=== PATIENT | male | born 1950 | race Caucasian/White ===

== ENCOUNTER → 2017-11-16 18:42 | Outpatient (CLI) | payer MEDICARE, OTHER, SELFPAY ==
--- NOTE | 2017-11-16 18:45 | CT_ITS ---
STUDY: LOW DOSE CT LUNG CANCER SCREENING REASON FOR EXAM: Male, 66 years old. 30 pack-year smoker. RADIATION DOSAGE (If Supplied By Facility): CTDIvol = ( 4.02 ) mGy, DLP = ( 148.48 ) mGycm TECHNIQUE: No contrast was administered. Low dose technique was utilized (average mAS-38 and kVp 120). 1.25 mm axial source images with a slice interval of 1.25-mm were reconstructed in lung windows. 2.5 mm axial source images with a slice interval of 2.5-mm were reconstructed in lung windows. 5.0 mm axial source images with a slice interval of 5.0-mm were reconstructed in soft tissue windows. Nodule measured using lung windows on PACS and/or independent workstation with automated measurement of minimum and maximum diameter. Nodule measurement reported as average diameter rounded to the nearest whole number. Growth is defined as an increase ins size of greater than 1.5 mm. COMPARISON: Comparison is made with prior examination dated September 04, 2010. NODULES: There is a new 7.6 mm x 5.1 mm well-defined noncalcified nodule in the superior medial aspect of the right upper lobe as seen on axial image #77. Total lung nodules (excluding granulomas): 1 Emphysema: Diffuse emphysematous changes. Mild increased markings at the lung bases suggestive of linear scarring. Endobronchial lesion: None Aorta: Atherosclerotic calcification. Coronary arteries: Coronary artery calcification. CT/Low Dose CT Lung Screening IMPRESSION: Lung-RADS category 3 - Continue screening with LDCT in 6 months. IMPORTANT NOTES FOR USE: ACR Lung-RADS Version 1.0 Assessment Categories Release Date: December 24, 2013 Category: Coded 0-4 bases on nodule(s) with highest degree of suspicion. Negative screen is defined as categories 1 and 2; a positive screen is defined as categories 3 and 4. Category 3 and 4A nodules that are unchanged on interval CT should be coded as category 2, and individuals returned to screening in 12 months. Category 4X: Category 3 or 4 nodules with additional imaging findings that increase the suspicion of lung cancer, such as spiculation, GGN that doubles in size in 1 year, enlarged lymph notes, etc. Category Modifiers: S (significant finding unrelated to lung cancer) and C (prior history of treated lung cancer) may be added to the 0-4 Lung-RADS Electronically Signed: Charbel Rivera MD at 10:24 EDT Tel [phone], Service support ,
== END ==
PROVIDERS: Family Provider Internal Medicine; PCP Internal Medicine; Visit Provider Internal Medicine Pulmonary Disease
DX: Z87.891 Personal history of nicotine dependence (principal)
CPT/HCPCS: G0297

== ENCOUNTER → 2018-02-16 13:05 | Outpatient (CLI) | payer MEDICARE, OTHER, SELFPAY ==
--- NOTE | 2018-02-16 13:09 | CT_ITS ---
STUDY: CT CHEST WITHOUT CONTRAST REASON FOR EXAM: Male, 67 years old. Follow-up nodule. COPD. RADIATION DOSAGE (If Supplied By Facility): CTDIvol = ( 10.71 ) mGy, DLP = ( 404.98 ) mGycm TECHNIQUE: Transaxial imaging was performed without the administration of intravenous contrast material. Individualized dose optimization techniques were used for this CT. COMPARISON: None. FINDINGS: There is hyperinflation of the lungs consistent with chronic obstructive lung disease (COPD). There is a stable 7.5 mm nodule in the medial posterior aspect of the right upper lobe, currently best seen on axial image 76. Continued follow-up is recommended. No other nodules are seen. Stable vertical linear scarring across the medial posterior left lower lobe. No infiltrates. No effusions. There is no demonstrated pleural abnormality. Normal heart and pericardium. There are calcifications of the coronary arteries. Normal mediastinum. Normal hilar regions. Normal unenhanced pulmonary arteries. Normal aorta arch and descending thoracic aorta. There are multi-level degenerative changes of the thoracic spine. There is diffuse demineralization. There are very numerous partial compression fractures that are stable. No definite acute abnormality in the upper abdomen. Stable appearance of liver and renal cysts and nonobstructing right renal stone. CT/Chest without Contrast IMPRESSION: Stable COPD and stable 7.5 mm right upper lobe nodule. Recommend repeat follow-up in 6 months. Electronically Signed: Kali Diaz MD at 17:29 EDT , Service support ,
== END ==
PROVIDERS: Family Provider Internal Medicine; PCP Internal Medicine; Visit Provider Internal Medicine Pulmonary Disease
DX: R91.1 Solitary pulmonary nodule (principal)
CPT/HCPCS: 71250

== ENCOUNTER → 2018-03-20 09:47 | Outpatient (CLI) | payer MEDICARE, OTHER, SELFPAY ==
--- NOTE | 2018-03-20 09:54 | CDU_ITS ---
Reason For Study: Carotid stenosis Rt. Velocities/BP Lt. Velocities/BP Prox CCA 114.0/28.7 cm/sec. Prox CCA 123.0/30.6 cm/sec. Mid CCA 110.0/32.2 cm/sec. Mid CCA 95.1/25.1 cm/sec. Dist CCA 99.7/27.0 cm/sec. Dist CCA 94.3/29.1 cm/sec. Prox ICA 89.1/30.5 cm/sec. Prox ICA 80.9/31.4 cm/sec. Mid ICA 89.7/30.5 cm/sec. Mid ICA 98.2/33.0 cm/sec. Dist ICA 94.4/36.4 cm/sec. Dist ICA 92.2/34.1 cm/sec. Rt. ICA/CCA = .82. Lt. ICA/CCA = 1.0. Prox ECA 83.3/17.0 cm/sec. Prox ECA 108.0/26.7 cm/sec. Rt. Vert. 55.7/11.7 cm/sec. Lt. Vert. 62.1/18.1 cm/sec. Right Extracranial There is intimal thickening but no significant atherosclerotic plaque noted in the right common carotid artery. There is intimal thickening but no significant atherosclerotic plaque noted in the right internal carotid artery. There is intimal thickening but no significant atherosclerotic plaque noted in the right external carotid artery. Antegrade flow is noted in the right vertebral artery. Left Extracranial There is intimal thickening but no significant atherosclerotic plaque noted in the left common carotid artery. There is homogeneous, smooth atherosclerotic plaque noted in the left internal carotid artery. There is heterogeneous, irregular atherosclerotic plaque noted in the left external carotid artery. Antegrade flow is noted in the left vertebral artery. Procedure Carotid Duplex [id number]. Exam performed in department. Interpretation Summary No significant atherosclerotic plaque or stenosis noted in the right internal carotid artery. Mild (<50%) stenosis left extracranial internal carotid. Flow within the vertebral arteries is antegrade bilaterally. Ordering Physician: Jessica Simental Referring Physician: Jessica Simental V Performed By: Bethany Brar RVT
== END ==
PROVIDERS: Family Provider Internal Medicine; PCP Internal Medicine; Visit Provider Internal Medicine
DX: I65.23 Occlusion and stenosis of bilateral carotid arteries (principal)
CPT/HCPCS: 93880

== ENCOUNTER → 2018-03-21 12:07 | Outpatient (CLI) | payer MEDICARE, OTHER, SELFPAY ==
--- NOTE | 2018-03-21 12:11 | RAD_ITS ---
STUDY: X-RAY - LUMBAR SPINE REASON FOR EXAM: Male, 67 years old. Low back pain. TECHNIQUE: 5 view(s) of the lumbar spine were obtained. COMPARISON: Low-dose screening CT chest/thorax November 16, 2017. FINDINGS: Normal lumbar lordosis. There is no substantial scoliosis. There is a normal alignment of the vertebrae. There is mild multilevel endplate spondylosis of the lumbar vertebrae. There is multi-level mild degenerative disc disease with multi-level disc space narrowing. There is no demonstrated fracture of the lumbar spine. There is a moderate compression fracture deformity of the T8 vertebra. There is atherosclerotic calcification of the abdominal aorta. RAD/L/S Spine Min 4 Views IMPRESSION: 1. Degenerative changes of the spine, as detailed above. 2. Compression fracture deformity of the T8 vertebra, unchanged from October 2017. Fracture deformities of the T5 and T7 vertebra are also evident on CT at that time. Electronically Signed: Atul Lazcano MD at 12:29 EDT , Service support ,
== END ==
PROVIDERS: Family Provider Internal Medicine; PCP Internal Medicine; Visit Provider Internal Medicine
DX: M54.5 Low back pain (principal)
CPT/HCPCS: 72110

== ENCOUNTER 2018-05-23 12:00 | Outpatient (RCR) | payer MEDICARE, OTHER, SELFPAY ==
--- NOTE | 2018-03-28 12:47 | HP.PTEVAL_ITS ---
Patient's Visit Information CHELI NEUMANN is a 67 year old M referred to Physical Therapy by Jessica Simental DO with a diagnosis of LBP WITH RADICULOPATHY. Date of Evaluation: 03/28/18 Physical Therapist: Rose Colunga - Visit Plan Frequency: 2-3x /Week Duration: 4-6 Weeks Plan: LUMBAR US, STM, POSTURE CORRECTION/STRENGTHENING, INSTRUCTION IN APPROPRIATE BODY MECHANICS AND ACTIVITY MODIFICATIONS. DLS STARTING WITH A NEUTRAL SPINE PROGRESSING ROM TOLERATED. MARY LE ROM, STRETCHING AND STRENGTHENING. HEP INSTRUCTION. CONSIDER AND DISCUSS AQUATIC THERAPY WITH PATIENT. - Subjective Subjective: Work/Leisure: RETIRED. [employer]. Disability: NO. Present symptoms : LEFT LOW BACK, BUTTOCK, HIP, THIGHT AND LEG PAIN. LEFT THIGH GETS TIGHT AT TIMES. NO NUMBNESS OR TINGLING. Present since: MARCH 07 2018 WAS WHEN HE FIRST NOTICED IT. Pain Scale: WORST: 7/10, LEAST 1/10. Currently: 10. Commenced as a result of: NO APPARENT REASON BUT DROVE TO [place] THE FOR A GOLF CLASS. THE WEEK BEFORE ATTEMPED TO PUSH A GARAGE DOOR UP BECAUSE A SPRING BROKE. Symptoms at onset: LEFT HIP. Worse: WALKING, GETTING IN AND OUT OF BED, GETTING IN AND OUT OF 'S CAR, MOWING, STEPS, LIFTING - PICKING UP DOG. Better: IBUPROFEN, SITTING. Disturbed sleep: YES. Previous history/Previous treatment: HISTORY OF RIGHT LOW BACK PAIN MAY 2017 - TREATED WITH 3 CHIRO VISIT - 100% RECOVERED. 10 YEARS AGO BACK EPISODE - SELF LIMITING. ONE CHIRO VISIT THIS EPISODE WHICH MIGHT HAVE HELPED A LITTLE BIT. NO PRIOR BACK PT. Coughing/sneezing/straining: NEGATIVE. Gait: IT FEELS LIKE LEFT HIP TIGHTENS UP WHEN STEPPING WITH LEFT LEG AND LEFT STRIDE SHORTER. DISTANCE LIMITED. NO AD'S. Difficulty initiating urinatin: NO. Accidents: NO. Unexplained weight loss: NO. Imaging: LUMBAR X-RAY - SHOWS ARTHRITIS AND A LITTLE BIT OF DISC AND VERTEBRAE ISSUES - OLD STRESS FX'S. EMR SHOWS: MPRESSION: 1. Degenerative changes of the spine, as detailed above. 2. Compression fracture deformity of the T8 vertebra, unchanged from 2017. Fracture deformities of the T5 and T7 vertebra are also evident on. CT at that time. PMH: SEIZURE DISORDER. OSTEOPOROSIS. COPD. OTHER: PATIENT REPORTS DR. FAST TOLD HIM NOT TO GOLF. HE REPORTS HE HAS NOT BEEN DRIVING BUT HE HAS BEEN CHIPPING AND PUTTING. - Objective Sitting/Standing Posture: POOR. Lordosis: REDUCED. Lateral shift: NO. Relevant shift: N/A. Other Observations: INDEP GAIT INTO PT WITH INCREASED TRUNK FLEXION, NO AD'S AND FAIR CADANCE. MILD LIMP CASS LLE WITH DECREASED MARY STRIDE LENGTH. INDEP TRANSFERS. Motor deficit: MARY LE'S 5/5 WITH MMT'ING. Sensory deficit: MARY LE LIGHT TOUCH SNESATION APPEARS TO BE INTACT AND SYMMETRICAL. ROM deficit: TIGHT MARY HIP FLEXORS, HAMSTRIGHS AND GASTROC SOLEUS COMPLEX'S. Dural Signs: NEGATIVE MARY LE'S. Lumbar mvmt loss: flex - MIN + LEFT LB/HIP. ext - BANDAR. R SG - BANDAR + LEFT LB/HIP. L SG - MOD. Core strength: POOR - Goals Goal 1:: DECREASE C/O L LB AND LE SX'S. Goal Time Frame: 4-6 Weeks Goal 2:: IMPROVE WALKING, LIFTING, SOCIAL LIFE, TRAVEL, HOMEMAKING AND RECREATIONAL (ESPECIALLY GOLF) FUNCTION Goal Time Frame: 4-6 Weeks Goal 3:: INSTRUCT IN PROPHYLAXIS Goal Time Frame: 4-6 Weeks - Rehabilitation Potential Rehabilitation Potential: Fair - Anticipated Interventions Patient/Client Instruction: Educate patient on: Condition, Plan of Care, Risk Factors, Benefits of Fitness Program For the Purpose of:: To improve self management Therapeutic Exercise to Include: Strength training, Body mechanics, Postural training, Flexibilty training, In an aquatic setting, Dynamic Lumbar Stabilization For the Purpose of:: To decrease pain, To increase ROM, To improve muscle performance and motor function, To increase tolerance to activity/condition/ position, To improve ability of physical actions for home/community/work/leisure , To improve gait and locomotor functions Manual Therapy Techniques to Include: Soft tissue mobilization For the Purpose of:: To decrease pain, To improve nutrient delivery to tissue Cryotherapy (ice pack, ice massage): Yes Thermo therapy (hot pack): Yes Ultrasound (thermal/non thermal): Yes For the Purpose of:: To decrease pain, To decrease swelling/inflammation, To increase ROM Thank you for the opportunity to evaluate your patient. For Medicare and Medicare HMO plans, please review the plan of care and approve it. It will need to be FAXED BACK to us at [phone] for Medicare purposes. Please let me know if there are questions or concerns regarding this plan of care. Physician Signature: Date:
--- NOTE | 2018-04-18 14:23 | HP.PTREVAL ---
Jessica Limon, DO, It has been my pleasure to treat CHELI NEUMANN over the last 10 visits for LBP WITH RADICULOPATHY. Please see the progress note below for an update on the physical therapy plan of care! Subjective: PATIENT REPORTS WALKING IS GOING BETTER - I DON'T HAVE THE TIGHNESS WHEN I WALK. I DON'T HAVE THE PAIN GETTING IN AND OUT OF BED. PATIENT REPORTS HE NOTICES THE PAIN WHEN HE STANDS ON ONE LEG AND TRIES TO PUSH SOMETHING WITH THE OTHER LEG. LIFTED SOMETHING WEIGHING ABOUT 50 TO 60 LBS YESTERDAY AND IT INCREASED HIS PAIN. THE INCREASED PAIN IS IMPROVING NOW. HASN'T HAD ANY PAIN WHEN TRYING TO HIT SOME GOLF BALLS BUT HAS MODIFIED HIS SWING. EVEN WHEN HE TWISTS SOME IT DOESN'T HURT. HASN'T TAKEN ANY ADVIL FOR 5 DAYS. HASN'T REALLY HAD MORE THAN ABOUT 1/10 PAIN UNTIL LIFTED SOMETHING YESTERDAY THEN UP TO 2/10 PAIN THAT LINGERED. STARTED DOING A LITTLE YARD WORK AND THAT WENT FINE. TRYING TO EASE BACK INTO ACTIVITY. NO PHYSICIAN FOLLOW UP AT THIS TIME - WILL RETURN TO DR. LIMON NEEDED. 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 STILL FEELING A LITTLE BIT OF TIGHTNESS ON LEFT LOW BACK WITH WALKING. Objective/Function: PATIENT IS IMPROVING WITH INCREASED PAINFREE LUMBAR ROM, IMPROVED FUNCTION AND PROGRESSION TOWARD INDEP EX PROGRAM. Sitting/Standing Posture: POOR - PATIENT STILL REQUIRES CUEING FOR CORRECTION. Lordosis: REDUCED. Lateral shift: NO. Relevant shift: N/A. Other Observations: INDEP GAIT INTO PT WITH MILD INCREASED TRUNK FLEXION, NO AD'S AND FAIR CADANCE. NO LONGER LIMPING ON LLE AND INCREASED MARY STRIDE LENGTH. INDEP TRANSFERS. Motor deficit: MARY LE'S 5/5 WITH MMT'ING. Sensory deficit: MARY LE LIGHT TOUCH SNESATION APPEARS TO BE INTACT AND SYMMETRICAL. ROM deficit: TIGHT MARY HIP FLEXORS, HAMSTRIGHS AND GASTROC SOLEUS COMPLEX'S. Dural Signs: NEGATIVE MARY LE'S. Lumbar mvmt loss: flex - NIL. ext - BANDAR. R SG - MOD. L SG - MOD. PATIENT C/O MILD INCREASED LEFT BACK PAIN WITH FLEXION AND RIGHT SG TESTING. Core strength: POOR. PATIENT COMMUNICATED A GOOD UNDERSTANDING OF ALL INSTRUCTIONS AFTER GIVEN. Plan Plan: PATIENT IS APPROPRIATE FOR CONTINUED PT DECREASING TO 2 TIMES A WEEK HE BEGINS INDEP EX WITH MEMBERSHIP AT FACILITY OF HIS CHOICE WITH THE FOLLOWING POC: US NEEDED. DLS THER EX PROGRESSION. MARY LE ROM, STRETCHING AND STRENGTHEING. FURTHER INSTRUCTION IN PROPER POSTURE CONTROL AND BODY MECHANICS NEEDED. PATIENT IS AGREEABLE TO THIS POC. Goals Goal 1:: DECREASE C/O L LB AND LE SX'S. Goal Time Frame: 4-6 Weeks Goal Progress: Progressing Goal 2:: IMPROVE WALKING, LIFTING, SOCIAL LIFE, TRAVEL, HOMEMAKING AND RECREATIONAL (ESPECIALLY GOLF) FUNCTION Goal Time Frame: 4-6 Weeks Goal Progress: Progressing Goal 3:: INSTRUCT IN PROPHYLAXIS Goal Time Frame: 4-6 Weeks Goal Progress: Progressing Anticipated Interventions Patient/Client Instruction: Educate patient on: Condition, Plan of Care, Risk Factors, Benefits of Fitness Program For the Purpose of:: To improve self management Therapeutic Exercise to Include: Strength training, Body mechanics, Postural training, Flexibilty training, In an aquatic setting, Dynamic Lumbar Stabilization For the Purpose of:: To decrease pain, To increase ROM, To improve muscle performance and motor function, To increase tolerance to activity/condition/position, To improve ability of physical actions for home/community/work/leisure, To improve gait and locomotor functions Manual Therapy Techniques to Include: Soft tissue mobilization For the Purpose of:: To decrease pain, To improve nutrient delivery to tissue Cryotherapy (ice pack, ice massage): Yes Thermo therapy (hot pack): Yes Ultrasound (thermal/non thermal): Yes For the Purpose of:: To decrease pain, To decrease swelling/inflammation, To increase ROM Please do not hesitate to contact me at [phone] by phone or if you have questions or concerns regarding this new plan of care! Sincerely, Rose Colunga
--- NOTE | 2018-05-23 12:55 | HP.PTDCSUM ---
HP - PT D/C Summary It has been my pleasure to treat CHELI NEUMANN under orders from Jessica Simental DO, for the diagnosis of LBP WITH RADICULOPATHY for a total of 16 visit(s). Discharge Date: 05/23/18 Please see the following information for a summary of their discharge status. - Subjective Subjective: PATIENT REPORTS HE HAS BEEN ABLE TO RESUME NORMAL ACTIVITY AT THIS POINT BUT HE AVOIDS LIFTING THAT PUTS HIM IN A BAD POSITION. ABLE TO GOLF WITHOUT PAIN. DOING HEP BUT HASN'T GONE TO [facility] BUT PLANS TO WHEN GOLFING SEASON IS OVER. PATIENT STATES HE DOESN'T THINK HE HAS TAKEN ANY ADVIL FOR ABOUT A MONTH. DRIVING TO [facility] [employer] / [facility] FOR GOLF OUTING FOR A WEEK 36 HOLES A DAY May. - Pain LEFT LOW BACK Pain Intensity (Out of 10): 0 - Overall Improvement % Improvement: 95 - Objective Objective/Function: ALL GOALS MET. UPON EXAM TODAY, PATIENT HAS FAIR POSTURE AND REQUIRES LESS CUEING FOR PROPER POSTURE CONTROL. HE HAS DECREASED LUMBAR EXTENSION ROM AND THIS LIMITS HIS POSTURE CORRECTION TO SOME DEGREE. HE DEMONSTRATES INDEP GAIT AND TRANSFERS WITH NO GROSS DEVIATIONS NOTED. Motor deficit: MARY LE'S 5/5 WITH MMT'ING BUT POSTERIOR HIP WEAKNESS DEMO'D WITH DIFFICULTY TRANSFERING SIT TO STAND AND REVERSE WITHOUT LERCHING FORWARD IN TRUNK. Lumbar mvmt loss: flex - NIL. ext - BANDAR. R SG - MOD. L SG - MOD. PATIENT DID NOT HAVE C/O PAIN WITH LUMBAR ROM TESTING TODAY. Core strength: FAIR. PATIENT COMMUNICATED A GOOD UNDERSTANDING OF ALL INSTRUCTIONS AFTER GIVEN TODAY. - Goals Goal 1:: DECREASE C/O L LB AND LE SX'S. Goal Progress: Progressing Goal 2:: IMPROVE WALKING, LIFTING, SOCIAL LIFE, TRAVEL, HOMEMAKING AND RECREATIONAL (ESPECIALLY GOLF) FUNCTION Goal Progress: Progressing Goal 3:: INSTRUCT IN PROPHYLAXIS Goal Progress: Progressing - Plan Plan: D/C TO HEP. PATIENT IS AGREEABLE. - D/C Information If there are questions or concerns regarding this patient's physical therapy, please feel free to call me at [phone]. Thank you for the referral of this patient. Sincerely, Rose Colunga
== END 2018-05-23 15:17 | disposition home or self-care (01) ==
LOC: PT 12:00
PROVIDERS: Family Provider Internal Medicine; PCP Internal Medicine; Visit Provider Internal Medicine
DX: M54.16 Radiculopathy, lumbar region (principal)
CPT/HCPCS: 97035; 97110; 97162; 97164; 97530

== ENCOUNTER → 2018-07-05 13:54 | Outpatient (CLI) | payer MEDICARE, OTHER, SELFPAY ==
[2018-07-05 14:01] VITALS: BP 117/76; PULSE 58; RESP 18; TEMP 35.5; BMI 26.2
[2018-07-05] MEDS: DENOSUMAB 60 MG/ML ML SQ (14:14)
== END ==
PROVIDERS: Family Provider Internal Medicine; PCP Internal Medicine; Visit Provider Internal Medicine
DX: M81.0 Age-related osteoporosis without current pathological fracture (principal)
CPT/HCPCS: 96372; J0897

== ENCOUNTER → 2018-08-08 09:28 | Outpatient (CLI) | payer MEDICARE, OTHER, SELFPAY ==
--- NOTE | 2018-08-08 09:41 | MRI_ITS ---
STUDY: MRI RIGHT MIDFOOT REASON FOR EXAM: Painful soft tissue mass, no specific injury. TECHNIQUE: Standardized fat and water weighted pulse sequences were obtained in all 3 orthogonal planes. COMPARISON: MRI images 12/24/2011. FINDINGS: Normal talonavicular articulation. Normal calcaneocuboid articulation. Normal navicular-cuneiform articulations. Normal intercuneiform articulations. Normal first tarsometatarsal articulation. Normal Lisfranc ligament. Normal second and third tarsometatarsal articulations. Normal cuboid fourth and cuboid fifth tarsometatarsal articulation. Normal first through fifth metatarsi. Normal tibialis anterior tendon. Normal extensor hallucis longus tendon. Normal extensor digitorum longus tendons. Normal peroneus longus tendon and distal insertion. Normal peroneus brevis tendon and distal insertion. Normal intrinsic muscles of the mid and forefoot region. Normal extensor digitorum brevis muscle. 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 Electronically Signed: Demarco Ellsworth MD at 11:56 EST Tel , Service support ,
--- OUTSIDE RECORDS SUMMARY | 2018-09-24 08:42 | XMS RPT_ITS | Continuity of Care Document ---
:1950 Author Organization [facility] Address [address] [facility] [address] [place] [address] Phone Care Team Providers Name Role Phone Jessica Limon DO Unavailable Dr. Landon Werner Unavailable [facility], [facility] Unavailable Dr. Jeremiah Banegas Unavailable Anneliese Stover Unavailable Unavailable Rosario Dickson Unavailable Unavailable Unavailable Unavailable Problems Name Dates Details Acute upper respiratory infection (J06.9, 465.9) Status: Active Allergic reaction (T78.40XA, 995.3) Comments: try cortisone creme Status: Active Anemia (D64.9, 285.9) Status: Active Aphthous ulcer (K12.0, 528.2) Status: Active Appendectomy Status: Active Bilateral carotid artery stenosis (I65.23, 433.10) Status: Active BMI 26.0-26.9,adult (Z68.26, V85.22) Status: Active BMI 26.0-26.9,adult (Z68.26, V85.22) Status: Active BMI 26.0-26.9,adult (Z68.26, V85.22) Status: Active BMI 28.0-28.9,adult (Z68.28, V85.24) Status: Active Bradycardia (R00.1, 427.89) Comments: improved -sx better Status: Active Cardiac dysrhythmia (I49.9, 427.9) Status: Active Chronic obstructive pulmonary disease (J44.9, 496) Status: Active Current smoker (F17.200, 305.1) Comments: encourage cessation Status: Active Depressed mood (F32.9, 311) Comments: he will consider counseling he doesnt want meds with risk of seizures Status: Active Dizziness (R42, 780.4) Status: Active Dizziness (R42, 780.4) Status: Active Ear pain, left (H92.02, 388.70) Status: Active Elevated hemoglobin A1c (R73.09, 790.29) Status: Active Elevated high sensitivity C-reactive protein (R79.82, 790.95) Status: Active Encounter for hepatitis C virus screening test for high risk patient (Z11.59, V73.89) Status: Active Encounter for immunization (Z23, V03.89) Status: Active Encounter for screening for malignant neoplasm of prostate (Renamed from Screening for prostate cancer) (Z12.5, V76.44) Status: Active Encounter for screening for malignant neoplasm of prostate (Renamed from Screening for prostate cancer) (Z12.5, V76.44) Status: Active Encounter for screening for malignant neoplasm of prostate (Renamed from Screening for prostate cancer) (Z12.5, V76.44) Status: Active Encounter for tobacco use cessation counseling (Z71.6, V65.42) 26-Jan-2012 Comments: down to 1 cig a day- encourge cessation Status: Active Erectile dysfunction (N52.9, 607.84) Status: Active Former smoker (Z87.891, V15.82) Status: Active Former smoker (Z87.891, V15.82) Status: Active Former smoker (Z87.891, V15.82) Status: Active Generalized convulsive seizure (R56.9, 780.39) Status: Active Hearing loss, bilateral (H91.93, 389.9) Comments: he not ready for eval yet -monitor Status: Active Hyperkalemia (E87.5, 276.7) Status: Active Hyperlipidemia (E78.5, 272.4) Status: Active Hypoglycemia (E16.2, 251.2) Comments: chronic stable-continue present regimen Status: Active hypoxia Status: Active 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, 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 Low back pain potentially associated with radiculopathy (M54.5, 724.2) Status: Active Lung nodule (R91.1, 793.11) Comments: jimmy is following pet scan neg Status: Active [facility] WELLNESS EXAM Status: Active [facility] wellness exam Status: Active [facility] Wellness Physical Status: Active Medicare annual wellness visit, initial (Z00.00, V70.0) Status: Active Memory loss (R41.3, 780.93) Comments: monitor- and make sure exercise and use brain Status: Active Need for prophylactic vaccination and inoculation against influenza (Renamed from Need for immunization against influenza) (Z23, V04.81) Status: Active Need for prophylactic vaccination and inoculation against influenza (Renamed from Need for immunization against influenza) (Z23, V04.81) Status: Active Need for prophylactic vaccination and inoculation against influenza (Renamed from Need for immunization against influenza) (Z23, V04.81) Status: Active Need for prophylactic vaccination and inoculation against influenza (Renamed from Need for immunization against influenza) (Z23, V04.81) Status: Active Obstructive sleep apnea, adult (G47.33, 327.23) Comments: following with jimmy Status: Active Osteoporosis (M81.0, 733.00) Comments: he getting some jaw detioration so he not going to do prolia- maybe forteo or like product will check Status: Active PERIPHERAL VASCULAR DISEASE (Renamed from Peripheral blood vessel disorder) (I73.9, 443.9) Status: Active Petechiae (R23.3, 782.7) Comments: lower extremities which I believed are sun related and improving Status: Active Peyronie's 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) (N48.6, 607.85) Status: Active Pneumococcal vaccination given (Z23, V06.6) Status: Active Poisoning by phenytoin, accidental or unintentional, subsequent encounter (T42.0X1D, V58.89) Comments: improving Status: Active Prediabetes (R73.03, 790.29) Comments: better- keep working on diet and exercise Status: Active Rash (R21, 782.1) Comments: improved Status: Active Screening for prostate cancer (Z12.5, V76.44) Status: Active Sebaceous cyst of ear (L72.3, 706.2) Status: Active Seizure disorder Comments: chronic stable-continue present regimen Status: Active SOB (shortness of breath) on exertion (R06.02, 786.05) Status: Active soft tissue tumor right foot Status: Active Testicular hypofunction (E29.1, 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) Status: Active Thyroid nodule (E04.1, 241.0) Status: Active Tonsillectomy Status: Active Unspecified Diagnosis Status: Active Upper Respiratory Infection (Renamed from Infection of the upper respiratory tract) (J06.9, 465.9) Status: Active Vitamin D deficiency, unspecified (E55.9, 268.9) Status: Active Medications Name Dates Details CALTRATE 600+D PLUS, [id number]-[id number] (Oral Tablet) Active 1 tab bid (600-400 MG-UNIT) Cialis 5 MG Oral Tablet 1 (one) Tablet Tablet qd prn for 0 days Quantity: 30 {Tablet} Refills: 0 Ordered:21-Sep-2017 Marcelle Bar Start : 20-Jun-2017 Active Dilantin 100 MG Oral Capsule 3pills Capsule qd for 90 days Quantity: 270 {QS} Refills: 3 Ordered:06-Aug-2016 Jessica Limon DO, DO, Debra A Start : 06-Aug-2016 Active Dispense as Written Comments:VANESSA Hydrocortisone Valerate 0.2 % External Cream 1 (one) Application Application apply creme qd for 0 days Quantity: 30 {Gram} Refills: 3 Ordered:16-Nov-2017 Anneliese Stover Start : 16-Nov-2017 Active ProAir HFA 108 (90 Base) MCG/ACT Inhalation Aerosol Solution uad (108 (90 Base) MCG/ACT) Active Prolia 60 MG/ML Subcutaneous Solution 1 (one) Milliliter Milliliter once every 6 months for 0 days Quantity: 1 {Milliliter} Refills: 1 Ordered:30-Jun-2018 Jessica Limon DO, DO, Debra A Start : 30-Jun-2018 Active Comments:This was approved by his insurance Simvastatin 10 MG Oral Tablet 1 (one) Tablet Tablet qd for 0 days Quantity: 90 {Tablet} Refills: 3 Ordered:20-Jun-2017 Marcelle Bar Start : 20-Jun-2017 Active Simvastatin 10 MG Oral Tablet 1 (one) Tablet Tablet qd for 0 days Quantity: 90 {Tablet} Refills: 0 Ordered:20-Jun-2017 Marcelle Bar Start : 20-Jun-2017 Active Spiriva Respimat 2.5 MCG/ACT Inhalation Aerosol Solution uad (2.5 MCG/ACT) Active Anoro Ellipta 62.5-25 MCG/INH Inhalation Aerosol Powder Breath Activated 1 (one) Aero Pow Br Act qd for 0 days Quantity: 3 {Inhaler} Refills: 0 Ordered:04-Apr-2018 Anneliese Stover Start : 01-Apr-2017 End : 04-Apr-2018 Inactive BIAXIN XL PAC, 500MG (Oral Tablet Extended Release 24 Hour) 2 (two) Tablet ER 24HR daily for 10 days Quantity: 20 {Tablet} Refills: 0 Ordered:08-Oct-2013 Lester Guerrier CNP Start : 08-Oct-2013 End : 18-Oct-2013 Inactive Breo Ellipta 100-25 MCG/INH Inhalation Aerosol Powder Breath Activated 1 (one) Puff 1 PUFF A DAY for 0 days Quantity: 30 {Inhalation} Refills: 6 Ordered:28-Jun-2018 Anneliese Stover Start : 04-Apr-2018 End : 28-Jun-2018 Inactive CEFADROXIL, 500MG (Oral Capsule) 1 (one) Capsule bid for 7 days Quantity: 14 {Capsule} Refills: 0 Ordered:30-May-2014 Lester Guerrier CNP Start : 30-May-2014 End : 06-Jun-2014 Inactive Clarithromycin 500 MG Oral Tablet 1 (one) Tablet bid for 0 days Quantity: 20 {Tablet} Refills: 0 Ordered:20-Jun-2017 Fast DO, Jessica AFast DO, Jessica A Start : 15-Jun-2017 End : 20-Jun-2017 Inactive FAMCICLOVIR, 500MG (Oral Tablet) 2 (two) Tablet bid for 1 days Quantity: 4 {QS} Refills: 0 Ordered:11-Apr-2015 Lester Guerrier CNP Start : 11-Apr-2015 End : 12-Apr-2015 Inactive PHENobarbital 16.2 MG Oral Tablet 1 (one) Tablet qid for 60 days Quantity: 240 {Tablet} Refills: 0 Ordered:10-Oct-2017 Fast DO, Jessica AFast DO, Jessica A Start : 10-Oct-2017 End : 09-Dec-2017 Inactive Dispense as Written Comments:VANESSA PHENYTOIN SODIUM EXTENDED, 100MG (Oral Capsule) tad Capsule(s)/Caplet(s) 3 caps alt 4 caps qod for 90 days Refills: 0 Ordered:13-Jul-2011 Rosario Dickson Start : 12-Feb-2011 End : 13-May-2011 Inactive VITAMIN D, 2000UNIT (Oral Capsule) 1 Capsule qd for 0 days Quantity: 60 {Capsule} Refills: 0 Ordered:26-Jan-2012 Rosario Dickson Start : 28-Jul-2010 End : 26-Jan-2012 Inactive Aspirin Adult Low Strength 81 MG Oral Tablet Chewable 1 (one) Tablet Chewable Tablet Chewable qd for 0 days Quantity: 30 {Tablet} Refills: 0 Ordered:15-Mar-2017 Rosario Dickson Start : 07-Oct-2014 End : 15-Mar-2017 Discontinued Atelvia 35 MG Oral Tablet Delayed Release [address] Tablet DR q week for 90 days Quantity: 12 {Tablet} Refills: 2 Ordered:07-Apr-2016 Rosario Dickson Start : 07-Oct-2014 End : 07-Apr-2016 Discontinued Comments:VANESSA patient did not tolerate fosamax or the generic form of Doxycycline Hyclate 100 MG Oral Tablet 1 (one) Tablet bid for 0 days Quantity: 20 {Tablet} Refills: 0 Ordered:15-Jun-2017 Rosario Dickson Start : 01-Apr-2017 End : 15-Jun-2017 Discontinued LORAZEPAM, 0.5MG (Oral Tablet) 1 Tablet tid prn for 0 days Quantity: 60 {Tablet} Refills: 0 Ordered:30-May-2014 Reny Baker LPN Start : 26-Jan-2012 End : 30-May-2014 Discontinued Comments:can sedate MUCINEX, 600MG (Oral Tablet Extended Release 12 Hour) 1 (one) Tablet ER 12HR Tablet ER 12HR bid for 0 days Quantity: 30 {Tablet} Refills: 0 Ordered:30-May-2014 Reny Baker LPN Start : 08-Oct-2013 End : 30-May-2014 Discontinued Simvastatin 10 MG Oral Tablet 1 (one) Tablet Tablet qd for 90 days Quantity: 90 {Tablet} Refills: 3 Ordered:15-Mar-2017 Rosario Dickson Start : 15-Nov-2016 End : 15-Mar-2017 Discontinued Spiriva HandiHaler 18 MCG Inhalation Capsule 1 Capsule qd for 0 days Quantity: 2 {Capsule} Refills: 3 Ordered:07-Apr-2016 Rosario Dickson Start : 03-Jul-2014 End : 07-Apr-2016 Discontinued VITAMIN D3, 1000UNIT (Oral Capsule) 1 cap qd (1000 UNIT) End : 15-Mar-2017 Discontinued Allergies and Adverse Reactions Name Dates Details No Known Allergies (Allergy) Onset: 17-Feb-2015 Status: Active No Known Drug Allergies (Allergy) Status: Active Past Medical History Name Dates Details Arthralgia of right knee (M25.561, 719.46) Status: Inactive as of 16-Nov-2017 BMI 27.0-27.9,adult (Z68.27, V85.23) Comments: 27.72 Status: Inactive as of 16-Nov-2017 BMI 27.0-27.9,adult (Z68.27, V85.23) Status: Inactive as of 21-Mar-2018 BMI 29.0-29.9,adult (Z68.29, V85.25) Status: Inactive as of 21-Dec-2017 Body aches (R52, 780.96) Status: Resolved as of 15-Mar-2014 Chronic daily headache (R51, 784.0) Status: Resolved as of 20-Jun-2017 Colon Polyp (K63.5, 211.3) Status: Inactive as of 16-Nov-2017 Congestion of nasal sinus (R09.81, 478.19) Status: Resolved as of 15-Mar-2014 Constipation (K59.00, 564.00) Status: Resolved as of 21-Jul-2011 Cough (R05, 786.2) Status: Resolved as of 15-Mar-2014 Encounter for long-term (current) use of medications (Z79.899, V58.69) Status: Resolved as of 15-Mar-2014 Joint pain in fingers of right hand (M25.541, 719.44) Comments: try ibuprofen prn Status: Inactive as of 16-Nov-2017 Need for prophylactic vaccination and inoculation against influenza (Z23, V04.81) Status: Resolved as of 15-Mar-2014 Pharyngitis (J02.9, 462) Status: Resolved as of 15-Mar-2014 Plantar fasciitis (M72.2, 728.71) Comments: discussed stretching exerxise Status: Inactive as of 16-Nov-2017 Short of breath on exertion (R06.02, 786.05) Comments: short of breath dizzy bradycardia Status: Inactive as of 16-Nov-2017 Shoulder pain (M25.519, 719.41) Comments: try ibuporfen if not better than xray - pt Status: Inactive as of 16-Nov-2017 Tick bite (W57.XXXA, 919.4) Status: Inactive as of 16-Nov-2017 Procedures Procedure Dates Details [place], [place] (09093) Date: 17-Feb-2015 Completed 17-Feb-2015 Appendectomy Completed Colonoscopy Completed 04-Nov-2015 Comments: Within Normal Limits. Small adenoma removed- repeat in 5 years Tonsillectomy Completed Date Value Details 23-May-2018 PT D/C Summary (1) Result: Comments: See Note; NOTES: [facility] [address] [place] [address] Fax [facility] SUMMARY MR#: [id number] Acct: [id number] Name: CHELI NEUMANN Rep #: [id number] : 1950 67 From: Rose Colunga PT, Cert. MDT Referring DrArias: Jessica Limon DO Status: REG RCR Insurance: MEDICAR E PART A B COMMERCIAL OTHER HP - PT D/C Summary It has been my pleasure to treat CHELI NEUMANN under orders from Jessica Limon DO, for the diagnosis of LBP WITH RADICULOPATHY for a total of 16 visit( s). Discharge Date: 05/23/18 Please see the following information for a summary of their discharge status. - Subjective Subjective: PATIENT REPORTS HE HAS BEEN ABLE TO RESUME NORMAL ACTIVITY AT THIS POINT BUT HE AVOIDS LIFTING THAT PUTS HIM IN A BAD POSITION. ABLE TO GOLF WITHOUT PAIN. DOING HEP BUT HASN'T GONE TO [facility] BUT PLANS TO WHEN GOLFING SEASON IS OVER. PATIENT STATES HE DOESN'T THINK HE H TAKEN ANY ADVIL FOR ABOUT A MONTH. DRIVING TO [employer]. FOR GOLF OUTING FOR A WEEK 36 HOLES A DAY May. - Pain LEFT LOW BACK Pain Intensity (Out of 10): 0 - Overall Improvement % Improvement: 95 - Objective Objective/Function: ALL GOALS MET. UPON EXAM TODAY, PATIENT HAS FAIR POSTURE AND REQUIRES LESS CUEING FOR PROPER POSTURE CONTROL. HE HAS DECREASED LUMBAR EXTENSION ROM AND THIS LIMITS HIS P OSTURE CORRECTION TO SOME DEGREE. HE DEMONSTRATES INDEP GAIT AND TRANSFERS WITH NO GROSS DEVIATIONS NOTED. Motor deficit: MARY LE'S 5/5 WITH MMT'ING BUT POSTERIOR HIP WEAKNESS DEMO'D WITH DIFFICULTY BARILLAS SFERING SIT TO STAND AND REVERSE WITHOUT LERCHING FORWARD IN TRUNK. Lumbar mvmt loss: flex - NIL. ext - BANDAR. R SG - MOD. L SG - MOD. PATIENT DID NOT HAVE C/O PAIN WITH LUMBAR ROM TESTING TODAY. Core str ength: FAIR. PATIENT COMMUNICATED A GOOD UNDERSTANDING OF ALL INSTRUCTIONS AFTER GIVEN TODAY. - Goals Goal 1:: DECREASE C/O L LB AND LE SX'S. Goal Progress: Progressing Goal 2:: IMPROVE WALKING, LIFTIN G, SOCIAL LIFE, TRAVEL, HOMEMAKING AND RECREATIONAL (ESPECIALLY GOLF) FUNCTION Goal Progress: Progressing Goal 3:: INSTRUCT IN PROPHYLAXIS Goal Progress: Progressing - Plan Plan: D/C TO HEP. PATIENT IS AGREEABLE. - D/C Information If there are questions or concerns regarding this patient's physical therapy, please feel free to call me at [phone]. Thank you for the referral of this patient. Rose Butterfield <Electronically signed by Rose Colunga PT, Cert. MDT> 05/23/18 1303 CC: Jessica Limon DO ANDREA Signed 18-Apr-2018 Re-Evaluation - PT (1) Result: Comments: See Note; NOTES: [facility] [address] [place] [address]. [address] [place], [place] [address] Fax REEVALUATION / MEDICARE [facility]ERTI [facility] MR#: [id number] Acct: [id number] Name: CHELI NEUMANN Rep #: [id number] : 1950 67 From: Rose Colunga PT, Cert. MDT Referring : Jessica Limon DO Status: REG RCR Ins urance: MEDICARE PART A B COMMERCIAL OTHER Jessica Limon DO, It has been my pleasure to treat CHELI NEUMANN over the last 10 visits for LBP WITH RADICULOPATHY. Please see the progress note below fo r an update on the physical therapy plan of care! Subjective: PATIENT REPORTS WALKING IS GOING BETTER - I DON'T HAVE THE TIGHNESS WHEN I WALK. I DON'T HAVE THE PAIN GETTING I N AND OUT OF BED. PATIENT REPORTS HE NOTICES THE PAIN WHEN HE STANDS ON ONE LEG AND TRIES TO PUSH SOMETHING WITH THE OTHER LEG. LIFTED SOMETHING WEIGHING ABOUT 50 TO 60 LBS YESTERDAY AND IT INC REASED HIS PAIN. THE INCREASED PAIN IS IMPROVING NOW. HASN'T HAD ANY PAIN WHEN TRYING TO HIT SOME GOLF BALLS BUT HAS MODIFIED HIS SWING. EVEN WHEN HE TWISTS SOME IT DOESN'T HURT. HASN'T TAKEN ANY ADVIL FOR 5 DAYS. HASN'T REALLY HAD MORE THAN ABOUT 1/10 PAIN UNTIL LIFTED SOMETHING YESTERDAY THEN UP TO 2/10 PAIN THAT LINGERED. STARTED DOING A LITTLE YARD WORK AND THAT WENT FINE. TRYING TO EASE BACK INTO ACTIVITY. NO PHYSICIAN FOLLOW UP AT THIS TIME - WILL RETURN TO DR. LIMON NEEDED. PATIENT REPORTS HE IS A MEMBER AT THE [email or web address]. STILL FEELING A LITTLE BIT OF TIGHTNESS ON LEFT LOW BACK WITH WALKING. Ob jective/Function: PATIENT IS IMPROVING WITH INCREASED PAINFREE LUMBAR ROM, IMPROVED FUNCTION AND PROGRESSION TOWARD INDEP EX PROGRAM. Sitting/Standing Posture: POOR - PATIENT STILL REQUIRES CUEING FOR C ORRECTION. Lordosis: REDUCED. Lateral shift: NO. Relevant shift: N/A. Other Observations: INDEP GAIT INTO PT WITH MILD INCREASED TRUNK FLEXION, NO AD'S AND FAIR CADANCE. NO LONGER LIMPING ON LLE AND INC REASED MARY STRIDE LENGTH. INDEP TRANSFERS. Motor deficit: MARY LE'S 5/5 WITH MMT'ING. Sensory deficit: MARY LE LIGHT TOUCH SNESATION APPEARS TO BE INTACT AND SYMMETRICAL. ROM deficit: TIGHT MARY HIP FLEXOR S, HAMSTRIGHS AND GASTROC SOLEUS COMPLEX'S. Dural Signs: NEGATIVE MARY LE'S. Lumbar mvmt loss: flex - NIL. ext - BANDAR. R SG - MOD. L SG - MOD. PATIENT C/O MILD INCREASED LEFT BACK PAIN WITH FLEXION AND RI GHT SG TESTING. Core strength: POOR. PATIENT COMMUNICATED A GOOD UNDERSTANDING OF ALL INSTRUCTIONS AFTER GIVEN. Plan Plan: PATIENT IS APPROPRIATE FOR CONTINUED PT DECREASING TO 2 TIMES A WEEK HE BEG INS INDEP EX WITH MEMBERSHIP AT FACILITY OF HIS CHOICE WITH THE FOLLOWING POC: US NEEDED. DLS THER EX PROGRESSION. MARY LE ROM, STRETCHING AND STRENGTHEING. FURTHER INSTRUCTION IN PROPER POSTURE CONTR OL AND BODY MECHANICS NEEDED. PATIENT IS AGREEABLE TO THIS POC. Goals Goal 1:: DECREASE C/O L LB AND LE SX'S. Goal Time Frame: 4-6 Weeks Goal Progress: Progressing Goal 2:: IMPROVE WALKING, LIFTING, SOCIAL LIFE, TRAVEL, HOMEMAKING AND RECREATIONAL (ESPECIALLY GOLF) FUNCTION Goal Time Frame: 4-6 Weeks Goal Progress: Progressing Goal 3:: INSTRUCT IN PROPHYLAXIS Goal Time Frame: 4-6 Weeks Goal Progre ss: Progressing Anticipated Interventions Patient/Client Instruction: Educate patient on: Condition, Plan of Care, Risk Factors, Benefits of Fitness Program For the Purpose of:: To improve self managem ent Therapeutic Exercise to Include: Strength training, Body mechanics, Postural training, Flexibilty training, In an aquatic setting, Dynamic Lumbar Stabilization For the Purpose of:: To decrease pain, To increase ROM, To improve muscle performance and motor function, To increase tolerance to activity/condition/position, To improve ability of physical actions for home/community/work /leisure, To improve gait and locomotor functions Manual Therapy Techniques to Include: Soft tissue mobilization For the Purpose of:: To decrease pain, To improve nutrient delivery to tissue Cryotherapy (ice pack, ice massage): Yes Thermo therapy (hot pack): Yes Ultrasound (thermal/non thermal): Yes For the Purpose of:: To decrease pain, To decrease swelling/inflammation, To increase ROM Please do not hesitate to contact me at [phone] by phone or if you have questions or concerns regarding this new plan of care! Sincerely, Rose Colunga <Electronically signed by Vicente Colunga PT, Cert. MDT> 04/18/18 1436 CC: Jessica Limon DO ANDREA Signed For Medicare only, by signing this I certify the plan of care. Physicians Signature Date 28-Mar-2018 Inital Evaluation (1) - PT Result: Comments: See Note; NOTES: [facility] [address] [place] [address] Fax [facility] SERVICES INITIAL EVALUATION MR#: [id number] Acct: [id number] Name: CHELI NEUMANN Rep #: [id number] : 1950 67 From: Rose Colunga PT, Cert. MDT Referring Dr.: Jessica Limon DO Status: REG RCR Insurance: MEDICA RE PART A B COMMERCIAL OTHER Patient's Visit Information CHELI NEUMANN is a 67 year old M referred to Physical Therapy by Jessica Limon DO with a diagnosis of LBP WITH RADICULOPATHY. Date of Evaluat ion: 03/28/18 Physical Therapist: Rose Colunga - Visit Plan Frequency: 2-3x /Week Duration: 4-6 Weeks Plan: LUMBAR US, STM, POSTURE CORRECTION/STRENGTHENING, INSTRUCTION IN APPROPRIATE BODY MECHANICS AND ACTIVITY MODIFICATIONS. DLS STARTING WITH A NEUTRAL SPINE PROGRESSING ROM TOLERATED. MARY LE ROM, STRETCHING AND STRENGTHENING. HEP INSTRUCTION. CONSIDER AND DISCUSS AQUATIC THERAPY WITH PATIENT. - Subjective Subjective: Work/Leisure: RETIRED. [employer]. Disability: NO. Present symptoms: LEFT LOW BACK, BUTTOCK, HIP, THIGHT AND LEG PAIN. LEFT THIGH GETS TIGHT AT TIMES. NO NUMBNESS OR TINGLING. Pres ent since: MARCH 07 2018 WAS WHEN HE FIRST NOTICED IT. Pain Scale: WORST: 7/10, LEAST 1/10. Currently: 10/08. Commenced as a result of: NO APPARENT REASON BUT DROVE TO [place] THE [address]TH FOR A GOLF CL ASS. THE WEEK BEFORE ATTEMPED TO PUSH A GARAGE DOOR UP BECAUSE A SPRING BROKE. Symptoms at onset: LEFT HIP. Worse: WALKING, GETTING IN AND OUT OF BED, GETTING IN AND OUT OF 'S CAR, MOWING, STEPS, LI FTING - PICKING UP DOG. Better: IBUPROFEN, SITTING. Disturbed sleep: YES. Previous history/Previous treatment: HISTORY OF RIGHT LOW BACK PAIN MAY 2017 - TREATED WITH 3 CHIRO VISIT - 100% RECOVERED. 10 Y EARS AGO BACK EPISODE - SELF LIMITING. ONE CHIRO VISIT THIS EPISODE WHICH MIGHT HAVE HELPED A LITTLE BIT. NO PRIOR BACK PT. Coughing/sneezing/straining: NEGATIVE. Gait: IT FEELS LIKE LEFT HIP TIGHTENS U P WHEN STEPPING WITH LEFT LEG AND LEFT STRIDE SHORTER. DISTANCE LIMITED. NO AD'S. Difficulty initiating urinatin: NO. Accidents: NO. Unexplained weight loss: NO. Imaging: LUMBAR X-RAY - SHOWS ARTHRITIS AND A LITTLE BIT OF DISC AND VERTEBRAE ISSUES - OLD STRESS FX'S. EMR SHOWS: MPRESSION: 1. Degenerative changes of the spine, as detailed above. 2. Compression fracture deformity of the T8 vertebra, unch anged from 2017. Fracture deformities of the T5 and T7 vertebra are also evident on. CT at that time. PMH: SEIZURE DISORDER. OSTEOPOROSIS. COPD. OTHER: PATIENT REPORTS DR. LIMON TOLD HIM NOT TO GO LF. HE REPORTS HE HAS NOT BEEN DRIVING BUT HE HAS BEEN CHIPPING AND PUTTING. - Objective Sitting/Standing Posture: POOR. Lordosis: REDUCED. Lateral shift: NO. Relevant shift: N/A. Other Observations: I NDEP GAIT INTO PT WITH INCREASED TRUNK FLEXION, NO AD'S AND FAIR CADANCE. MILD LIMP CASS LLE WITH DECREASED MARY STRIDE LENGTH. INDEP TRANSFERS. Motor deficit: MARY LE'S 5/5 WITH MMT'ING. Sensory deficit: MARY LE LIGHT TOUCH SNESATION APPEARS TO BE INTACT AND SYMMETRICAL. ROM deficit: TIGHT MARY HIP FLEXORS, HAMSTRIGHS AND GASTROC SOLEUS COMPLEX'S. Dural Signs: NEGATIVE MARY LE'S. Lumbar mvmt loss: flex - M IN + LEFT LB/HIP. ext - BANDAR. R SG - BANDAR + LEFT LB/HIP. L SG - MOD. Core strength: POOR - Goals Goal 1:: DECREASE C/O L LB AND LE SX'S. Goal Time Frame: 4-6 Weeks Goal 2:: IMPROVE WALKING, LIFTING, SOCI AL LIFE, TRAVEL, HOMEMAKING AND RECREATIONAL (ESPECIALLY GOLF) FUNCTION Goal Time Frame: 4-6 Weeks Goal 3:: INSTRUCT IN PROPHYLAXIS Goal Time Frame: 4-6 Weeks - Rehabilitation Potential Rehabilitation Potential: Fair - Anticipated Interventions Patient/Client Instruction: Educate patient on: Condition, Plan of Care, Risk Factors, Benefits of Fitness Program For the Purpose of:: To improve self manag ement Therapeutic Exercise to Include: Strength training, Body mechanics, Postural training, Flexibilty training, In an aquatic setting, Dynamic Lumbar Stabilization For the Purpose of :: To decrease pain, To increase ROM, To improve muscle performance and motor function, To increase tolerance to activity/condition/position, To improve ability of physical actions for home/community/wo rk/leisure, To improve gait and locomotor functions Manual Therapy Techniques to Include: Soft tissue mobilization For the Purpose of:: To decrease pain, To improve nutrient delivery to tissue Cryothera py (ice pack, ice massage): Yes Thermo therapy (hot pack): Yes Ultrasound (thermal/non thermal): Yes For the Purpose of:: To decrease pain, To decrease swelling/inflammation, To increase ROM Thank y aldair for the opportunity to evaluate your patient. For Medicare and Medicare HMO plans, please review the plan of care and approve it. It will need to be FAXED BACK to us at [phone] for Medicare pur poses. Please let me know if there are questions or concerns regarding this plan of care. Physician Signature: Date: <Electronic ally signed by Rose Colunga PT, Cert. T> 03/28/18 1411 CC: Jessica Limon DO ANDREA Signed For Medicare only, by signing this I certify the plan of care. Physicians Signature Date 24-Mar-2018 Carotid Duplex Ultrasound Result: Comments: See Note; NOTES: [facility] Cardiovascular Services [address] [place] [address] Carotid Duplex Ultrasound 03/20/18 0956 MR#: [id number] Acct: [id number] Name: CHELI NOWAK Rep #: [id number] : 1950 67 From: David Mo MD Attending Dr: Jessica Limon DO Status: REG CLI Ordering Dr: Jessica Limon DO Date: 03/20/18 Location: [facility] Sex: M C Admitted: Reason For Study: Carotid stenosis Rt. Velocities/BP Lt. Velocities/BP Prox CCA 114.0/28.7 cm/sec. Prox CCA 123.0/30.6 cm/sec. Mid CCA 110.0/32.2 cm/sec. Mid CCA 95.1/25.1 cm/sec. Dist CCA 99.7/27.0 cm/sec. Dist CCA 94.3/29.1 cm/sec. Prox ICA 89.1/30.5 cm/sec. Prox ICA 80.9/31.4 cm/sec. Mid ICA 89.7/30.5 cm/sec. Mid ICA 98.2/33.0 cm/sec. Dist ICA 94.4/36.4 cm/sec. Dist ICA 92.2/34.1 cm/sec. Rt. ICA/CCA = . 82. Lt. ICA/CCA = 1.0. Prox ECA 83.3/17.0 cm/sec. Prox ECA 108.0/26.7 cm/sec. Rt. Vert. 55.7/11.7 cm/sec. Lt. Vert. 62.1/18.1 cm/sec. Right Extracranial There is intimal thickening but no significant a therosclerotic plaque noted in the right common carotid artery. There is intimal thickening but no significant atherosclerotic plaque noted in the right internal carotid artery. There is intimal thicken ing but no significant atherosclerotic plaque noted in the right external carotid artery. Antegrade flow is noted in the right vertebral artery. Left Extracranial There is intimal thickening but no sig nificant atherosclerotic plaque noted in the left common carotid artery. There is homogeneous, smooth atherosclerotic plaque noted in the left internal carotid artery. There is heterogeneous, irregular atherosclerotic plaque noted in the left external carotid artery. Antegrade flow is noted in the left vertebral artery. Procedure Carotid Duplex [id number]. Exam performed in department. Interpretation Sum lester No significant atherosclerotic plaque or stenosis noted in the right internal carotid artery. Mild (<50%) stenosis left extracranial internal carotid. Flow within the vertebral arteries is antegrade bilaterally. Ordering Physician: Jessica Limon Referring Physician: Jessica Limon ed By: Bethany Brar RVT 03/24/18728 Date David Mo MD CC: Jessica Limon DO Date Dictated: 03/20/1856 Date Transcribed: 03/24/18728 Row Boss: Signed 21-Mar-2018 L/S Spine Min 4 Views Result: Comments: See Note; NOTES: [facility] Imaging Services [address] [place] [address] L/S Spine Min 4 Views MR#: [id number] Acct: [id number] Name: THIENCADE Rep #: [id number] : 1950 67 From: Phil Lazcano MD PCP: Jessica Limon DO Status: REG CLI Study: L/S Spine Min 4 Views Date of Exam: 03/21/18 Exam# [id number] Ordering Dr: Jessica Limon DO STUDY: X-RAY - LUMBA R SPINE REASON FOR EXAM: Male, 67 years old. Low back pain. TECHNIQUE: 5 view(s) of the lumbar spine were obtained. COMPARISON: Low-dose screening CT chest/thorax November 16, 2017. FINDINGS: Normal lumbar lordosis. There is no substantial scoliosis. There is a normal alignment of the vertebrae. There is mild multilevel endplate spondylosis of the lumbar vertebrae . There is multi-level mild degenerative disc disease with multi-level disc space narrowing. There is no demonstrated fracture of the lumbar spine. There is a moderate compression fracture deformity of the T8 vertebra. There is atherosclerotic calcification of the abdominal aorta. RAD/L/S Spine Min 4 Views IMPRESSION: 1. Degenerative changes of the spine, as detailed above. 2. Compression fracture deformity of the T8 vertebra, unchanged from October 2017. Fracture deformities of the T5 and T7 vertebra are also evident on CT at that time. Elect ronically Signed: Atul Lazcano MD at 12:29 EDT Tel , Service support , CC: Jessica Limon DO Row Boss: Signed 16-Feb-2018 Chest without Contrast Result: Comments: See Note; NOTES: [facility] Imaging Services [address] [place] [address] Chest without Contrast MR#: [id number] Acct: [id number] Name: CHELI NEUMANN A Rep #: [id number] : 1950 M 67 From: Kali Diaz MD PCP: Jessica Limon DO Status: REG CLI Study: Chest without Contrast Date of Exam: 02/16/18 Exam# [id number] Ordering Dr: Carlos Bowers MD STUDY: CT CHEST WITHOUT CONTRAST REASON FOR EXAM: Male, 67 years old. Follow-up nodule. COPD. RADIATION DOSAGE (If Supplied By Facility): CTDIvol = ( 10.71 ) mGy, DLP = ( 404.98 ) mGycm TECHNIQUE: Transaxial imaging was performed without the administration of intravenous contrast material. Individualized dose optimization techniques were used for this CT. COMPARISON: None. ___ FINDINGS: There is hyperinflation of the lungs consistent with chronic obstructive lung disease (COPD). There is a stable 7.5 mm nodule in the medial posterior aspect of the right upper lobe, curr ently best seen on axial image 76. Continued follow-up is recommended. No other nodules are seen. Stable vertical linear scarring across the medial posterior left lower lobe. No infiltrates. No effusion s. There is no demonstrated pleural abnormality. Normal heart and pericardium. There are calcifications of the coronary arteries. Normal mediastinum. Normal hilar regions. Normal unenhanced pulmonary arteries. Normal aorta arch and descending thoracic aorta. There are multi-level degenerative changes of the thoracic spine. There is diffuse demineralization. There are very numerous partial compressi on fractures that are stable. No definite acute abnormality in the upper abdomen. Stable appearance of liver and renal cysts and nonobstructing right renal stone. CT/Chest without Contrast IMPRESSION: Stable COPD and stable 7.5 mm right upper lobe nodule. Recommend repeat follow-up in 6 months. Electronically Signed: Kali Diaz MD 02/16 at 17:29 EDT , Service support , CC: Jessica Limon DO; Carlos Bowers MD Row Boss: Signed 16-Nov-[address] Lung Screening Result: Comments: See Note; NOTES: [facility] Imaging Services [address] [place] [address] Lung Screening MR#: [id number] Acct: [id number] Name: CHELI NEUMANN Rep #: [id number] : 1950 M 66 From: Charbel Cunha MD PCP: Jessica Limon DO Status: [facility] CLI Study: Low Dose CT Lung Screening Date of Exam: 11/16/17 Exam# [id number] Ordering Dr: Carlos Bowers MD STUDY: LOW DOSE CT LUNG CANCER SCREENING REASON FOR EXAM: Male, 66 years old. 30 pack-year smoker. RADIATION DOSAGE (If Supplied By Facility): CTDIvol = ( 4.02 ) mGy, DLP = ( 148.48 ) mGycm TECHNIQU E: No contrast was administered. Low dose technique was utilized (average mAS- 38 and kVp 120). 1.25 mm axial source images with a slice interval of 1.25-mm were reconstructed in lung windows. 2.5 mm axi al source images with a slice interval of 2.5-mm were reconstructed in lung windows. 5.0 mm axial source images with a slice interval of 5.0-mm were reconstructed in soft tissue windows. Nodule measure d using lung windows on PACS and/or independent workstation with automated measurement of minimum and maximum diameter. Nodule measurement reported as average diameter rounded to the nearest whole numbe r. Growth is defined as an increase ins size of greater than 1.5 mm. COMPARISON: Comparison is made with prior examination dated September 04, 2010. NODULES: There is a new 7.6 mm x 5.1 mm well-defined noncalcified nodule in the superior medial aspect of the right upper lobe as seen on axial image #77. Total lung nodules (excluding granulomas): 1 Emphysema: Diffus e emphysematous changes. Mild increased markings at the lung bases suggestive of linear scarring. Endobronchial lesion: None Aorta: Atherosclerotic calcification. Coronary arteries: Coronary artery c alcification. CT/Low Dose CT Lung Screening IMPRESSION: Lung-RADS category 3 - Continue screening with LDCT in 6 months. IMPORTANT NOTES FOR USE: ACR Lung-RADS Version 1.0 Assessm ent Categories Release Date: December 24, 2013 Category: Coded 0-4 bases on nodule(s) with highest degree of suspicion. Negative screen is defined as categories 1 and 2; a positive screen is defined as cat egories 3 and 4. Category 3 and 4A nodules that are unchanged on interval CT should be coded as category 2, and individuals returned to screening in 12 months. Category 4X: Category 3 or 4 nodules with additional imaging findings that increase the suspicion of lung cancer, such as spiculation, GGN that doubles in size in 1 year, enlarged lymph notes, etc. Category Modifiers: S (significant finding unr elated to lung cancer) and C (prior history of treated lung cancer) may be added to the 0-4 Lung-RADS Electronically Signed: Charbel Cunha MD at 10:24 EDT Tel [phone], Service suppo rt , CC: Jessica Limon DO; Carlos Bowers MD Row Boss: Signed 22-Jun-2017 Thyroid Result: Comments: See Note; NOTES: [facility] Imaging Services [address] [place] [address] Thyroid MR#: [id number] Acct: [id number] Name: CHELI NEUMANN Rep #: [id number] : [birth year] M 66 From: Kali Diaz MD PCP: Jessica Liomn DO Status: REG CLI Study: Thyroid Date of Exam: 06/22/17 Exam# [id number] Ordering Dr: Jessica Limon DO STUDY: THYROID ULTRASOUND REASON FOR EXAM: M artie, 66 years old. Nodules TECHNIQUE: Ultrasound evaluation of the thyroid was performed with real-time and static iqbal-scale imaging. COMPARISON: 05/06/2016. FINDIN GS: RIGHT LOBE: The right lobe of the thyroid gland measures 4.3 x 1.8 x 1.4 cm. There is a homogeneous echotexture. There is a 5 mm nodule in the upper pole. LEFT LOBE: The left lobe of the thyroid g land measures 4.3 x 2.1 x 1.5 cm. There is a homogeneous echotexture. There is an 8 mm solid lower pole nodule. ISTHMUS: The isthmus measures 5 mm . The regional lymph nodes are normal. US/Thyroid IMPRESSION: Stable small nodules. No dominant mass. Recommend continued annual follow-up. Electronically Signed: Kali Diaz MD a t 23:58 EDT , Service support , CC: Jessica Limon DO Row Boss: Signed 16-Mar-2017 Finger(s) Min 2 Views Result: Comments: See Note; NOTES: [facility] Imaging Services [address] [place] [address] Verdana 4d Finger(s) Min 2 Views MR#: [id number] Acct: [id number] Name: CHELI NEUMANN Re p #: [id number] : 1950 M 66 From: Chas Kulkarni MD PCP: Jessica Limon DO Status: REG CLI Study: Finger(s) Min 2 Views Date of Exam: 03/16/17 Exam# [id number] Ordering Dr: Jessica Limon DO STUDY: X- RAY - RIGHT HAND, ATTENTION THIRD FINGER REASON FOR EXAM: Male, 66 years old. Pain TECHNIQUE: 3 view(s) of the finger were obtained. COMPARISON: None. FINDINGS: N ormal metacarpal head. Normal metacarpophalangeal joint. Normal proximal phalanx. Normal middle phalanx. Normal distal phalanx. Normal proximal interphalangeal joint. Normal distal interphalangeal suyapa nt. RAD/Finger(s) Min 2 Views IMPRESSION: Normal x-ray examination of the finger. Electronically Signed: Chas Kulkarni MD at 20:47 EDT , Service support , CC: Jessica Limon DO Row Boss: Signed 16-Mar-2017 Knee 4 or More Views Result: Comments: See Note; NOTES: [facility] Imaging Services [address] [place] [address] Verdana 4d Knee 4 or More Views MR#: [id number] Acct: [id number] Name: THIENCHELICADE Rep #: [id number] : 1950 M 66 From: Chas Kulkarni MD PCP: Jessica Limon DO Status: REG CLI Study: Knee 4 or More Views Date of Exam: 03/16/17 Exam# [id number] Ordering Dr: Jessica Limon DO STUDY: X-RA Y - RIGHT KNEE REASON FOR EXAM: Male, 66 years old. Knee pain TECHNIQUE: 4 view(s) of the knee. COMPARISON: None. FINDINGS: Normal visualized distal femur. Normal visualized proximal tibia and fibula. Normal proximal tibiofibular articulation. Normal medial femorotibial compartment. Normal lateral femorotibial compartment. Normal patellofemoral articulation. T he soft tissue structures are unremarkable. RAD/Knee 4 or More Views IMPRESSION: Normal x-ray examination of the knee. Electronically Signed: Se chrissy Kulkarni MD at 20:48 EDT , Service support , CC: Jessica Limon DO Row Boss: Signed 01-Feb-2017 DXA BONE DENS W/VERT FX ASMT Result: Comments: See Note; NOTES: [facility] Imaging Services [address] [place] [address] Verdana 4d DXA BONE DENS W/VERT FX ASMT MR#: [id number] Acct: [id number] Name: IRVING NEUMANN Rep #: [id number] : 1950 [facility] From: Charbel Cunha MD PCP: Jessica Limon DO Status: REG CLI Study: DXA BONE DENS W/VERT FX ASMT Date of Exam: 02/01/17 Exam# [id number] Ordering Dr: Marcelino Limon DO STUDY: DUAL ENERGY X-RAY ABSORPTIOMETRY / DXA REASON FOR EXAM: Male, 66 years old. Loss of height. TECHNIQUE: Bone Mineral Density (BMD) measurements of lumbar spine and bilateral hips were obtained. COMPARISON: Comparison is made with prior study dated January 30, 2015. FINDINGS: Lumbar Spine (L1-L4): g/cm2 (1.056) / T-score (-1.3) / Z-score (-0.8) Findi ngs are suggestive of osteopenia with a moderate fracture risk. Approximately 60% loss of height of the T7 vertebrae and 50% loss of height of the T8 vertebrae. Left Femur Total: g/cm2 (0.684) / T-scor e (-2.9) / Z-score (-2.3) Left Femoral Neck: g/cm2 (0.758) / T-score (-2.4) / Z-score (-1.3) Right Femur Total: g/cm2 (0.638) / T-score (-3.2) / Z-score (- 2.6) Right Femoral Neck: g/cm2 (0.782) / T-scor e (-2.2) / Z-score (-1.1) The T-Scores on the most recent prior examination were: Lumbar Spine (L1-L4): There has been improvement of bone density since the previous examination. Left Femur Total: wh ich represents a worsening of 0.3%. Right Femur Total: which represents a worsening of 7.7%. HPBD/DXA BONE DENS W/VERT FX ASMT IMPRESSION: The pa tient is considered osteoporotic as outlined below according to World Lee Organization (WHO) criteria with a high fracture risk. There has been worsening of bone density since the previous examination . Reference Information: The T-score is the number of standard deviations above or below the standard which is normal for young adults at their peak bone mineral de nsity. The World Health Organization (WHO) interprets the T-scores as follows: Above -1 Normal bone density Between -1 and -2.5 Osteopenia Equal to / or below -2.5 Osteoporosis As a practical clinical guideline, osteopenia may be graded as follows: Mild -1 through -1.5 Moderate -1.6 through -2.0 Severe -2.1 through -2.4 The Z-score is the number of standard deviations above or below age-matched con trols. A Z-score of less than -1.5 would be considered abnormal. References: 1. NIH Osteoporosis and Related Bone Diseases http://www.osteo.org 2. International Society for Clinical Densitometry http:/ /www.iscd.org 3. National Osteoporosis Foundation http://www.nof.org Electronically Signed: Charbel Cunha MD at 12:41 EDT Tel [phone], Service support , Fax CC: Jessica Limon DO Row Boss: Signed 01-Dec-2016 Carotid Duplex Ultrasound Result: Comments: See Note; NOTES: [facility] Cardiovascular Services [address] [place] [address] Carotid Duplex Ultrasound 11/29/16 0940 MR#: [id number] Acct: [id number] Name: CHELI NOWAK Rep #: [id number] : 1950 66 From: René Aiken MD Attending Dr: Jessica Limon DO Status: REG CLI Ordering Dr: Jessica Limon DO Date: 11/29/16 Location: [facility] Sex: M C Admitted: [facility] n For Study: Carotid stenosi Rt. Velocities/BP Lt. Velocities/BP Prox CCA 103.0/22.3 cm/sec. Prox CCA 126.0/33.0 cm/sec. Mid CCA 105.0/28.1 cm/sec. Mid CCA 106.0/32.2 cm/sec. Dist CCA 86.2/26.4 cm/sec. Dist CCA 82.5/27.5 cm/sec. Prox ICA 75.6/25.8 cm/sec. Prox ICA 82.7/31.7 cm/sec. Mid ICA 95.0/39.3 cm/sec. Mid ICA 66.7/27.1 cm/sec. Dist ICA 81.1/29.4 cm/sec. Dist ICA 82.1/28.7 cm/sec. Rt. ICA/CCA = .90. Lt. ICA/CCA = .78. Prox ECA 96.2/15.8 cm/sec. Prox ECA 86.4/17.3 cm/sec. Rt. Vert. 42.2/13.5 cm/sec. Lt. Vert. 50.4 cm/sec. Right Extracranial There is intimal thickening but no significant athero sclerotic plaque noted in the right common carotid artery. There is intimal thickening but no significant atherosclerotic plaque noted in the right internal carotid artery. There is homogeneous, smooth atherosclerotic plaque noted in the right external carotid artery. Antegrade flow is noted in the right vertebral artery. Left Extracranial There is intimal thickening but no significant atheroscleroti c plaque noted in the left common carotid artery. There is homogeneous, smooth atherosclerotic plaque noted in the left internal carotid artery. There is heterogeneous, irregular atherosclerotic plaque noted in the left external carotid artery. Antegrade flow is noted in the left vertebral artery. Procedure Carotid Duplex [id number]. Exam performed in department. Interpretation Summary Mild (<50% ) stenosis right extracranial internal carotid. Mild (<50%) stenosis left extracranial internal carotid. Flow within the vertebral arteries is antegrade bilaterally. Ordering Physician: Jessica Limon Performed By: Bethany Brar RVT 12/01/16 1035 Date René Aiken MD CC: Jessica Limon DO Date Dictated: 11/29/16 0940 Date Transcribed: 12/01/16 1035 Row Boss: Signed 10-May-2016 Brain/Head W/WO Contrast Result: Comments: See Note; NOTES: [facility] Imaging Services [address] [place] [address] [place] [address] Verdana 4d Brain/Head W/WO Contrast MR#: [id number] Acct: [id number] Name: CHELI NEUMANN Rep #: [id number] : 1950 M 65 From: Chas Kulkarni MD PCP: Jessica Limon DO Status: REG CLI Study: Brain/Head W/WO Contrast Date of Exam: 05/10/16 Exam# [id number] Ordering Dr: Jessica Limon TUDY: CT BRAIN WITH AND WITHOUT CONTRAST REASON FOR EXAM: Male, 65 years old. DIZZINESS RADIATION DOSAGE (If Supplied By Facility): CTDIvol = ( 60.81 ) mGy, DLP = ( 2058.55 ) mGycm TECHNIQUE: Transax ial CT imaging of the brain was performed pre and post contrast administration. The examination was performed with intravenous administration of 50 ml of Isovue 370 contrast material. Individualized do se optimization techniques were used for this CT. COMPARISON: None. FINDINGS: Normal soft tissue structures. Normal calvarium. There are no enhancing lesions are Th ere are calcifications around the cavernous carotid arteries. This is consistent for atherosclerotic disease. Normal size ventricles and extra-axial spaces for the patient's age. Normal white matter tr acts of the cerebral hemispheres. Normal basal ganglia and thalami. Normal brainstem. Normal cerebellum. There is no intracranial hemorrhage. There are no findings of an acute ischemic infarction. Nor mal visualized paranasal sinuses. CT/Brain/Head W/WO Contrast IMPRESSION: Normal unenhanced and enhanced CT scan of the brain. There are calcif ications around the cavernous carotid arteries. This is consistent for atherosclerotic disease. Electronically Signed: Chas Kulkarni MD at 21:50 EDT , Service support [phone], CC: Jessica Limon DO Row Boss: Signed 06-May-2016 Thyroid Result: Comments: See Note; NOTES: [facility] Imaging Services [facility] [place] [address] Verdana 4d Thyroid MR#: [id number] Acct: [id number] Name: CHELI NEUMANN Rep #: [id number] : 1950 M 65 From: Giorgio Hernandez MD PCP: Jessica Limon DO Status: REG CLI Study: Thyroid Date of Exam: 05/06/16 Exam# [id number] Ordering Dr: Jessica Limon DO STUDY: THYROID ULTRASOUND FARRAH SON FOR EXAM: Male, 65 years old. Thyroid nodule TECHNIQUE: Ultrasound evaluation of the thyroid was performed with real-time and static iqbal-scale imaging. COMPARISON: None. FINDINGS: RIGHT LOBE: The right lobe of the thyroid gland measures 4.3 cm and 1.2 cm x 1.1 cm. There is a homogeneous echotexture. There is a tiny slightly hypoechoic nodular focus which me asures no more than 4 mm in the mid right lobe medial aspect. LEFT LOBE: The left lobe of the thyroid gland measures 4.6 cm a 1.6 cm x 2 cm. There is a homogeneous echotexture. Solitary somewhat isoech oic appearing ovoid nodule which measures 4 mm x 8 mm x 7 mm towards the lower pole. ISTHMUS: The isthmus measures 3 millimeters. No abnormal lymph nodes are demonstrated. US/Thyroid IMPRESSION: Only rather marginal enlargement of the gland at most is demonstrated, with uniform echotexture and bilateral subcentimeter sized nodular foci seen in each lobe. Periodic ultrasound surveillance for these will suffice at this time. Electronically Signed: Phil Hernandez MD at 7:32 EDT Tel , Service support [phone], F ax [phone] CC: Jessica Limon DO Row Boss: Signed 20-Apr-2016 Echocardiogram Complete Result: Comments: See Note; NOTES: [facility] Cardiovascular Services [address] [place] [address] Echo Complete 04/20/16 0829 MR#: [id number] Acct: [id number] Name: CHELI NEUMANN Rep #: [id number] : 1950 65 From: Neeraj Porter MD Attending Dr: Jessica Limon DO Status: REG CLI Ordering Dr: Jessica Limon DO Date: 04/20/16 Location: [facility] Sex: M C Admitted: Reason For Stud y: SOB Procedure This was a 2D Doppler, Color Flow transthoracic echocardiogram. The exam was of adequate technical quality. Exam performed in department. Left Ventricle Normal LV size. Left ventricul ar systolic function is normal. The estimated ejection fraction is 65 %. No regional wall motion abnormalities noted. Right Ventricle Normal RV size. Normal systolic function. Atria The left atrium is mildly enlarged. Normal right atrium. No doppler evidence for ASD. Mitral Valve There is mild mitral annular calcification. Normal mitral valve. Mild (1+) mitral valve insufficiency. Tricuspid Valve Normal tricuspid valve. Mild tricuspid valve insufficiency. Right ventricular systolic pressure estimated to be 33 mmHg. Aortic Valve Trisinus/trileaflet aortic valve. Mild focal aortic valve thickenin g. Pulmonic Valve The pulmonic valve is not well visualized. Great Vessels Normal sized aortic root. Pericardium/Pleural No pericardial effusion. MMode/2D Measurements & Calculations LVIDd: 5 .0 cm IVSd: 1.1 cm Ao root diam: 3.2 cm LVIDs: 3.2 cm LVPWd: 1.1 cm RVDd: 3.7 cm FS: 35.8 % LAV(MOD-bp): 65.4 ml LA A4 a farrah: 20.1 cm2 RA A4 area: 13.1 cm2 LAV(MOD-bp) Indexed: 30.5 ml/m2 LAV(MOD-sp2): 57.5 ml LAV(MOD-sp4): 68.4 ml Doppler Measurements & Calculations MV E max jayne: 89.3 cm/sec Lat Peak E' Jayne: 9.5 cm/sec Med Peak E' Jayne: 5.4 cm/sec MV A max jayne: 76.3 cm/sec E/E' lat: 9.4 E/E' med: 16.6 MV E/A: 1.2 Ao V2 max: 143.4 cm/sec LV V1 max: 74.2 cm/sec PA V2 max: 91.5 cm/sec Ao max P.3 mmHg LV V1 max P.2 mmHg TR max jayne: 266.5 cm/sec TR max P.4 mmHg Interpretation Summary Left ventricular systolic function is normal. The estimated ejection fraction is 65 %. The left atrium is mildly enlarged. There is mild mitral annular calci fication. Mild (1+) mitral valve insufficiency. Mild tricuspid valve insufficiency. Mild focal aortic valve thickening. Right ventricular systolic pressure estimated to be 33 mmHg. Transmitral diastolic flow velocities suggest diastolic dysfunction (pseudonormal pattern). Comment: Echolucency c/w an hepatic cyst. Consider further evaluation with additional radiologic studies such as abdominal U/S or C T scan as clinically indicated. Ordering Physician: Jessica Limon Performed By: Natalie Sarabia RD CS, RVT 04/20/167 Date Neeraj Porter MD CC: Jessica Limon DO Date Dictated: 828 Date Transcribed: 04/20/161336 Row Boss: Signed 20-Apr-2016 Nuclear Stress Test - Treadmil Result: Comments: See Note; NOTES: [facility] Imaging Services [address] [place] [address] [place] 4d Nuclear Stress Test - Treadmil MR#: [id number] Acct: [id number] Name: CHELI NEUMANN Rep #: [id number] : 1950 65 From: Neeraj Porter MD Primary Care: Jessica Limon DO Status: REG CLI Ordering Dr: Jessica Limon DO Sex: M C DATE OF SERVICE: 04/20/2016 EXERCISE TOLERANCE TEST: The patient exercised on a Nima protocol for 5 minutes 30 seconds completing stage 1 and 2 minutes and 30 seconds of stage 2, achieving a peak heart rate of 131 beats per minute (85% predicted m aximum heart rate) and a peak blood pressure of 140/80 mmHg and a peak MET capacity of approximately 7 METS. The baseline ECG demonstrated sinus bradycardia. The peak exercise ECG demonstrated no obvio us ECG changes. There was a rare PVC during exercise. There was a rare PAC and an occasional PVC during recovery. The functional capacity was considered average. The patient had no complaint of ches t discomfort during exercise or recovery. The examination was discontinued secondary to leg discomfort and dyspnea. IMPRESSION: 1. Technically adequate (percent predicted maximum heart rate greater th an 85%), exercise tolerance test. 2. Negative (adequate) ECG exercise tolerance test. 3. Rare PVC during exercise. 4. Rare PAC and occasional PVC during recovery. 5. Nuclear images pending. MYOCARDIAL PERFUSION IMAGING STUDY: TECHNIQUE: The patient was injected with 14.7 mCi of Tc99m Cardiolite and subsequently rest SPECT Cardiolite nuclear imaging was obtained in the horizontal long, vertical long and short axes views. The patient exercised on a Nima protocol for 5 minutes 30 seconds completing stage 1 and 2 minutes and 30 seconds of stage 2, achieving a peak heart rate of 131 beats per minute ( 85% predicted maximum heart rate) and a peak blood pressure of 140/80 mmHg and a peak MET capacity of 7 METS. The patient was injected with 44.3 mCi of Tc99m Cardiolite and subsequently stress SPECT Car diolite nuclear imaging was obtained in the horizontal long, vertical long and short axes views. A gated Cardiolite study at peak stress was obtained. INTERPRETATION: Rest and stress SPECT Cardiolite n uclear imaging, status post realignment, normalization, attenuation correction, demonstrates a small area of subtle decreased tracer uptake near the apical segments without significant change between re st and stress. There are similar type findings on the resting and stress polar map images. There is end systolic thickening and brightening. The gated Cardiolite study demonstrates myocardial thickening and inward wall motion. The reported LVEF was 68%. The aforementioned findings appear compatible with the effects of physiologic apical thinning with no myocardial perfusion changes considered diagnost ic for associated stress-induced myocardial ischemia or previous myocardial injury/infarction. IMPRESSION: 1. Rest and stress SPECT Cardiolite nuclear imaging demonstrates myocardial perfusion changes appearing compatible with the effects of physiologic apical thinning with no myocardial perfusion changes considered diagnostic for associated stress-induced myocardial ischemia or previous myocardial i njury/infarction. 2. The gated Cardiolite study reports an LVEF of 68%. Neeraj Porter MD T: NTS JOB: [id number] 04/21/16 1019 <Electronically signed by Neeraj Porter MD> Date Neeraj Porter MD CC: Jessica Limon DO Date Dictated: 04/20/1650 Date Transcribed: 04/20/16849 Row Boss: Signed 07-Apr-2016 ELECTROCARDIOGRAM, COMPLETE (ECG) ([id number]) Comments: severe sinus lokesh- otherwise normal sinus- normal axis no acute st t wave changes Result: [MEASUREMENTS ANALYSIS] Date of Test: 04/07/2016 11:15:52; Heart Rate: 39; FL Interval: 192; QRS: 96; QT Interval: 462; Corrected QT Interval (QTc): 426; P Wave Lovelady: 69; QRS Wave Lovelady: 66; T Wave Lovelady: 50; Blood Pressure: 114/68 [ECG DIAGNOSTIC STATEMENTS] Date of Test: 04/07/2016 11:15:52; Summary: Marked sinus Bradycardia -With rate variation cv = 10.Low voltage in limb leads. ABNORMAL [MEASUREM ENTS ANALYSIS] Date of Test: 04/07/2016 11:14:53; Heart Rate: 41; FL Interval: 188; QRS: 96; QT Interval: 458; Corrected QT Interval (QTc): 425; P Wave Lovelady: 90; QRS Wave Lovelady: 65; T Wave Lovelady: 49; Bloo d Pressure: 114/68 [ECG DIAGNOSTIC STATEMENTS] Date of Test: 04/07/2016 11:14:53; Summary: Marked sinus Bradycardia -With rate variation cv = 22.Low voltage in limb leads. ABNORMAL 12-Dec-2015 Carotid Duplex Ultrasound Result: Comments: See Note; NOTES: [facility] Cardiovascular Services [address] [place] [address] Carotid Duplex Ultrasound 12/10/15 0904 MR#: [id number] Acct: [id number] Name: CHELI NEUMANN Rep #: [id number] : 1950 65 From: René Aiken MD Attending Dr: Jessica Limon DO Status: REG CLI Ordering Dr: Jessica Limon DO Date: 12/10/15 Location: [facility] Sex: M C A dmitted: Reason For Study: carotid stenosis Rt. Velocities/BP Lt. Velocities/BP Prox CCA 149/42.4 cm/sec. Prox CCA 159/46.4 cm/sec. Mid CCA 123/36.1 cm/sec. Mid CCA 110/32.2 cm/sec. Dist CCA 105/40.1 cm/sec. Dist CCA 101/34.6 cm/sec. Prox ICA 134/37.7 cm/sec. Prox ICA 96.7/36.4 cm/sec. Mid ICA 137/53.4 cm/sec. Mid ICA 123/55.8 cm/sec. Dist ICA 138/50.9 cm/sec. Dist ICA 108/42.8 cm/sec. Rt. ICA/CCA = 1.1. Lt. ICA/CCA = 1.1. Prox ECA 94.3/22.0 cm/sec. Prox ECA 133/21.1 cm/sec. Rt. Vert. 67.4/29.3 cm/sec. Lt. Vert. 62.5/20.4 cm/sec. Right Extracranial There is heterogeneous, smooth atherosclerotic plaque noted in the right common carotid artery. There is homogeneous, smooth atherosclerotic plaque noted in the right internal carotid artery. The right internal carotid artery is very tortuous. There is homogeneous, smooth atherosclerotic plaque noted in the right external carotid artery. Antegrade flow is noted in the right vertebral artery. Left Extracranial There is ho mogeneous, smooth atherosclerotic plaque noted in the left common carotid artery. There is homogeneous, smooth atherosclerotic plaque noted in the left internal carotid artery. The left internal car otid artery is very tortuous. The atherosclerotic plaque causes acoustic shadowing. There is heterogeneous, irregular atherosclerotic plaque noted in the left external carotid artery. Antegrade flow is noted in the left vertebral artery. Procedure Carotid Duplex [id number]. The exam was diagnostic. Exam performed in department. Interpretation Summary Mild (<50%) stenosis right extracrania l internal carotid. Mild (<50%) stenosis left extracranial internal carotid. Flow within the vertebral arteries is antegrade bilaterally. There is elevated velocities throughout the entire r ight common and internal carotid arteries. Ordering Physician: Jessica Limon Performed By: Natalie Causey, RDRAFAEL, RVT 12/12/15 175 Date René Aiken MD CC: Jessica Limon DO Date Dictated: 12/10/1504 Date Transcribed: 12/12/151751 Row Boss: Signed 10-Dec-2015 Aorta Result: Comments: See Note; NOTES: [facility] Imaging Services [address] [place] [address] [place]el[place] 4d Aorta MR#: [id number] Acct: [id number] Name: CHELI NEUMANN Rep # : [id number] : 1950 M 65 From: Charbel Cunha MD PCP: Jessica Limon DO Status: REG CLI Study: Aorta Date of Exam: 12/10/15 Exam# [id number] Ordering Dr: Jessica Limon DO PROCEDURES: ULTRA SOUND AORTA REASON FOR EXAM: Male, 65 years old. Screening for abdominal aortic aneurysm. TECHNIQUE: Ultrasound evaluation of the aorta was performed with real-time and static iqbal-scale imaging. COMPARISON: None. FINDINGS: There is no elongation or tortuosity of the abdominal aorta. Aorta measures: Proximal 2.6 cm. Middle 2.0 cm. Distal 1.7 cm. Aorta measure transversely: Proximal 2.7 cm. Middle 2.0 cm. Distal 2.1 cm. Right iliac artery measures: 0.9 cm. Right iliac artery measure transversely: 0.7 cm. Left iliac artery measures: 1.1 cm. Lef t iliac artery measure transversely: 0.7 cm. There is no demonstrated aneurysm.. IMPRESSION: Normal abdominal aorta. Electronically Signed: Charbel Cristina i, MD at 10:18 EDT Tel [phone], Service support [phone], CC: Jessica Limon DO Row Boss: Signed 23-Oct-2015 Spirometry ([id number]) Result: 08-Aug-2015 ELECTROCARDIOGRAM, COMPLETE (ECG) ([id number]) Comments: ekg showed normal sinus rhythym, normal axis, no acute st/t wave changes Result: [MEASUREMENTS ANALYSIS] Date of Test: 08/08/2015 11:57:53; Heart Rate: 57; FL Interval: 192; QRS: 94; QT Interval: 428; Corrected QT Interval (QTc): 423; P Wave Lovelady: 78; QRS Wave Lovelady: 76; T Wave Lovelady: 47; Blood Pressure: 120/72 [ECG DIAGNOSTIC STATEMENTS] Date of Test: 08/08/2015 11:57:53; Summary: Sinus Bradycardia Low voltage in limb leads. ABNORMAL 30-Jan-2015 Dexa Bone Density Study (HP) Result: Comments: See Note; NOTES: [facility] Imaging Services [address] [address] Bone Density Report MR#: [id number] Acct: [id number] Name: CHELI NEUMANN Rep #: [id number] : 1950 M 64 From: Charbel Cunha MD PCP: Jessica Limon DO Status: REG CLI Study: Dexa Bone Density Study (HP) Date of Exam: 01/30/15 Exam# [id number] Ordering Dr: Jessica Limon DO STUDY: DUAL ENERGY X-RAY ABSORPTIOMETRY / DXA REASON FOR EXAM: Male, 64 years old. Steroid use. TECHNIQUE: Bone Mineral Density (BMD) measurements of lumbar spine and bilateral hips were obtaine d. COMPARISON: Comparison is made with prior examination dated September 26, 2012. FINDINGS: Lumbar Spine (L1-L4): g/cm2 (1.017) / T-score (-1.6) / Z-score (-1. 2) Findings are suggestive of osteopenia with a moderate fracture risk. Left Femur Total: g/cm2 (0.686) / T-score (-2.9) / Z-score (-2.3) Left Femoral Neck: g/cm2 (0.762) / T-score (-2.4) / Z-score (-1.3) Right Femur Total: g/cm2 (0.691) / T-score (-2.8) / Z-score (-2.3) Right Femoral Neck: g/cm2 (0.768) / T-score (-2.3) / Z-score (-1.2) The T-Scores on the most recent prior examination were: Lumbar Spine (L1-L4): There has been improvement of bone density since the previous examination. Left Femur Total: which represents a worsening of 2.4%. Right Femur Total: which represents an impr ovement of 0.3%. IMPRESSION: The patient is considered osteoporotic as outlined below according to World Lee Organization (WHO) criteria with a high fracture r isk. There has been improvement of bone density since the previous examination. Reference Information: The T-score is the number of standard deviations above or below the standard which is normal for young adults at their peak bone mineral density. The World Health Organization (WHO) interprets the T-scores as follows: Above -1 Normal bone density Betwee n -1 and -2.5 Osteopenia Equal to / or below -2.5 Osteoporosis As a practical clinical guideline, osteopenia may be graded as follows: Mild -1 through -1.5 Moderate -1.6 through -2.0 Severe -2.1 t hrough -2.4 The Z-score is the number of standard deviations above or below age-matched controls. A Z-score of less than -1.5 would be considered abnormal. References: 1. NIH Osteoporosis and Rela garcia Bone Diseases http://www.osteo.org 2. International Society for Clinical Densitometry http://www.iscd.org 3. National Osteoporosis Foundation http://www.nof.org Electronically Signed: Charbel Cunha MD at 15:54 EDT Tel [phone], Service support [phone], CC: Jessica Limon DO Row Boss: Signed 25-Sep-2014 Carotid Duplex Ultrasound Result: Comments: See Note; NOTES: [facility] Cardiovascular Services [address] [place] [address] Carotid Duplex Ultrasound 09/25/14 0850 MR#: [id number] Acct: [id number] [facility] e: CHELI NEUMANN Rep #: [id number] : 1950 63 From: René Aiken MD Attending Dr: Jessica Limon DO Status: REG CLI Ordering Dr: Jessica Limon DO Date: 09/25/14 Location: [facility] Sex: M C Admitted : Rt. Velocities/BP Lt. Velocities/BP Prox CCA 151/45 cm/sec. Prox CCA 164/38 cm/sec. Mid CCA 138/38 cm/sec. Mid CCA 115/38 cm /sec. Dist CCA 105/37 cm/sec. Dist CCA 109/42 cm/sec. Prox ICA 7 1/23 cm/sec. Prox ICA 118/48 cm/sec. Mid ICA 109/39 cm/sec. Mid ICA 105/49 cm /sec. Dist ICA 81/29 cm/sec. Dist ICA 103/48 cm/sec. Rt. ICA/CCA = .8. Lt. ICA/CCA = 1.0. Prox ECA 94/34 cm/sec. Prox ECA 114/37 cm/sec. Rt. Vert. 50/20 cm/sec. Lt. Vert. 57/19 cm/sec. Right Extracranial There is heterogeneous, smooth atherosclerotic plaque noted in the right common carotid artery. The right in ternal carotid artery is very tortuous. There is heterogeneous, smooth atherosclerotic plaque noted in the right internal carotid artery. There is heterogeneous, smooth atherosclerotic plaque noted in the right external carotid artery. Antegrade flow is noted in the right vertebral artery. Acoustic shadowing. There is heterogeneous, smooth atherosclerotic plaque noted in the right bulb. Left Extracranial There is heterogeneous, smooth atherosclerotic plaque noted in the left common carotid artery. There is heterogeneous, smooth atherosclerotic plaque noted in the left internal carotid artery. The left internal carotid artery is very tortuous. There is heterogeneous, smooth atherosclerotic plaque noted in the left external carotid artery. Antegrade flow is noted in the left verteb ral artery. There is heterogeneous, smooth atherosclerotic plaque noted in the left bulb. There is heterogeneous, irregular atherosclerotic plaque noted in the left bulb. Procedure Carotid Duplex [id number]. Exam performed in department. Interpretation Summary Mild (<50%) stenosis right extracranial internal carotid. Mild (<50%) stenosis left extracranial internal carotid. Flow w ithin the vertebral arteries is antegrade bilaterally. Ordering Physician: Jessica Limon Perform ed By: Lynn Granados RDCS 09/25/14 1044 Date René Aiken MD CC: Jessica Limon DO Date Dictated: 09/25/14 0850 Date Transcribed: 09/25/14 1044 Row Boss: Signed 15-Mar-2014 EKG ([id number]) Comments: ekg showed rhythym with periods of irregular rhythm- not afib, normal axis, no acute st/t wave changes Result: [MEASUREMENTS ANALYSIS] Date of Test: 03/15/2014 07:58:47; Heart Rate: 57; FL Interval: 202; QRS: 98; QT Interval: 412; Corrected QT Interval (QTc): 407; P Wave Lovelady: 90; QRS Wave Lovelady: 62; T Wave Lovelady: 52; Blood Pressure: 126/78 [ECG DIAGNOSTIC STATEMENTS] Date of Test: 03/15/2014 07:58:47; Summary: Sinus Bradycardia - occasional ectopic ventricular beat Low voltage in limb leads. -RSR(V1) -nondiagnostic. ABNORMAL Immunization Name Dates Details Zoster (shingles) on: 17-Feb-2015 Comments: Site: Posterior Upper Arm (Left) Lot #: [id number] Family History Unknown Family Member Name Dates Details Father Comments: age 89 chf - kidney failure- had one kidney - possible prostate cancer Status: Active Mother Comments: decreased - age 87- alzheimers Status: Active Sister 1 Comments: living with dm Status: Active Social History Name Dates Details Alcohol Use: Occasional alcohol use. Status: Active Caffeine Use Comments: several cups of coffee daily Status: Active No Drug Use Status: Active Tobacco Use: Smokes 1 pack of cigarettes per day. Current every day smoker. Status: Active Smoking Status Name Dates Details Current every day smoker Vital Signs Date Test Result Details :56 Temperature 97.7 f Comments: Method: Temporal Pulse 60 /min Comments: Pattern: Regular Respiration Rate 16 /min Comments: Pattern: Unlabored BP Systolic 104 mm[Hg] Comments: Patient Position: Sitting; Cuff Location: Left Arm; Cuff Size: Standard BP Diastolic 68 mm[Hg] Comments: Patient Position: Sitting; Cuff Location: Left Arm; Cuff Size: Standard Weight 193.125 lb Height 71.25 in Body Mass Index Calculated 26.75 kg/m2 Body Surface Area Calculated 2.08 m2 :05 Temperature 97.7 f Comments: Method: Temporal Pulse 68 /min Comments: Pattern: Regular Respiration Rate 16 /min Comments: Pattern: Unlabored BP Systolic 108 mm[Hg] Comments: Patient Position: Sitting; Cuff Location: Left Arm; Cuff Size: Standard BP Diastolic 70 mm[Hg] Comments: Patient Position: Sitting; Cuff Location: Left Arm; Cuff Size: Standard Weight 192.125 lb Height 71.25 in Body Mass Index Calculated 26.61 kg/m2 Body Surface Area Calculated 2.08 m2 :14 Temperature 97.8 f Pulse 68 /min Comments: Pattern: Regular Respiration Rate 18 /min Comments: Pattern: Unlabored O2 SAT 98 % Comments: Room air BP Systolic 106 mm[Hg] Comments: Patient Position: Sitting; Cuff Location: Left Arm; Cuff Size: Standard BP Diastolic 66 mm[Hg] Comments: Patient Position: Sitting; Cuff Location: Left Arm; Cuff Size: Standard Weight 199.125 lb Height 71.25 in Body Mass Index Calculated 27.58 kg/m2 Body Surface Area Calculated 2.11 m2 :50 Temperature 98 f Comments: Method: Temporal Pulse 55 /min Comments: Pattern: Regular Respiration Rate 16 /min Comments: Pattern: Unlabored BP Systolic 116 mm[Hg] Comments: Patient Position: Sitting; Cuff Location: Left Arm; Cuff Size: Standard BP Diastolic 60 mm[Hg] Comments: Patient Position: Sitting; Cuff Location: Left Arm; Cuff Size: Standard Weight 202.375 lb Height 71.25 in Body Mass Index Calculated 28.03 kg/m2 Body Surface Area Calculated 2.13 m2 [id number] Temperature 97.2 f Comments: Method: Temporal Pulse 81 /min Comments: Pattern: Regular Respiration Rate 16 /min Comments: Pattern: Unlabored BP Systolic 108 mm[Hg] Comments: Patient Position: Sitting; Cuff Location: Left Arm; Cuff Size: Standard BP Diastolic 62 mm[Hg] Comments: Patient Position: Sitting; Cuff Location: Left Arm; Cuff Size: Standard Weight 209.5 lb Height 71.25 in Body Mass Index Calculated 29.01 kg/m2 Body Surface Area Calculated 2.16 m2 :46 Temperature 96.9 f Pulse 55 /min Comments: Pattern: Regular Respiration Rate 18 /min Comments: Pattern: Unlabored O2 SAT 95 % Comments: Room air BP Systolic 116 mm[Hg] Comments: Patient Position: Sitting; Cuff Location: Left Arm; Cuff Size: Standard BP Diastolic 74 mm[Hg] Comments: Patient Position: Sitting; Cuff Location: Left Arm; Cuff Size: Standard Weight 200.5 lb Height 71.25 in Body Mass Index Calculated 27.77 kg/m2 Body Surface Area Calculated 2.12 m2 :39 Temperature 97.6 f Comments: Method: Temporal Pulse 56 /min Comments: Pattern: Regular Respiration Rate 16 /min Comments: Pattern: Unlabored O2 SAT 95 % Comments: Room air BP Systolic 110 mm[Hg] Comments: Patient Position: Sitting; Cuff Location: Left Arm; Cuff Size: Standard BP Diastolic 72 mm[Hg] Comments: Patient Position: Sitting; Cuff Location: Left Arm; Cuff Size: Standard Weight 192 lb Height 71.25 in Body Mass Index Calculated 26.59 kg/m2 Body Surface Area Calculated 2.08 m2 :08 Temperature 97.2 f Comments: Method: Temporal Pulse 60 /min Comments: Pattern: Regular Respiration Rate 16 /min Comments: Pattern: Unlabored O2 SAT 95 % Comments: Room air BP Systolic 128 mm[Hg] Comments: Patient Position: Sitting; Cuff Location: Left Arm; Cuff Size: Standard BP Diastolic 80 mm[Hg] Comments: Patient Position: Sitting; Cuff Location: Left Arm; Cuff Size: Standard Weight 192 lb Height 71.25 in Body Mass Index Calculated 26.59 kg/m2 Body Surface Area Calculated 2.08 m2 :54 Temperature 97 f Comments: Method: Temporal Pulse 52 /min Comments: Pattern: Regular Respiration Rate 16 /min Comments: Pattern: Unlabored O2 SAT 94 % Comments: Room air BP Systolic 102 mm[Hg] Comments: Patient Position: Sitting; Cuff Location: Left Arm; Cuff Size: Standard BP Diastolic 70 mm[Hg] Comments: Patient Position: Sitting; Cuff Location: Left Arm; Cuff Size: Standard Weight 196 lb Height 71.25 in Body Mass Index Calculated 27.14 kg/m2 Body Surface Area Calculated 2.1 m2 :13 Temperature 98 f Comments: Method: Temporal Pulse 56 /min Comments: Pattern: Regular Respiration Rate 16 /min Comments: Pattern: Unlabored O2 SAT 94 % Comments: Room air BP Systolic 112 mm[Hg] Comments: Patient Position: Sitting; Cuff Location: Left Arm; Cuff Size: Standard BP Diastolic 66 mm[Hg] Comments: Patient Position: Sitting; Cuff Location: Left Arm; Cuff Size: Standard Weight 193 lb Height 71.25 in Body Mass Index Calculated 26.73 kg/m2 Body Surface Area Calculated 2.08 m2 :04 Temperature 97.8 f Comments: Method: Temporal Pulse 64 /min Comments: Pattern: Regular Respiration Rate 16 /min Comments: Pattern: Unlabored O2 SAT 95 % Comments: Room air BP Systolic 110 mm[Hg] Comments: Patient Position: Sitting; Cuff Location: Left Arm; Cuff Size: Standard BP Diastolic 68 mm[Hg] Comments: Patient Position: Sitting; Cuff Location: Left Arm; Cuff Size: Standard Weight 200.125 lb Height 71.25 in Body Mass Index Calculated 27.72 kg/m2 Body Surface Area Calculated 2.11 m2 :46 Temperature 97.2 f Comments: Method: Temporal Pulse 62 /min Comments: Pattern: Regular Respiration Rate 16 /min Comments: Pattern: Unlabored BP Systolic 110 mm[Hg] Comments: Patient Position: Sitting; Cuff Location: Left Arm; Cuff Size: Standard BP Diastolic 60 mm[Hg] Comments: Patient Position: Sitting; Cuff Location: Left Arm; Cuff Size: Standard Weight 200.125 lb Height 71.25 in Body Mass Index Calculated 27.72 kg/m2 Body Surface Area Calculated 2.11 m2 :53 Temperature 98 f Comments: Method: Temporal Pulse 62 /min Comments: Pattern: Regular Respiration Rate 15 /min Comments: Pattern: Unlabored O2 SAT 96 % Comments: Room air BP Systolic 108 mm[Hg] Comments: Patient Position: Sitting; Cuff Location: Left Arm; Cuff Size: Standard BP Diastolic 68 mm[Hg] Comments: Patient Position: Sitting; Cuff Location: Left Arm; Cuff Size: Standard Weight 193 lb Height 71.25 in Body Mass Index Calculated 26.73 kg/m2 Body Surface Area Calculated 2.08 m2 :09 Temperature 97.2 f Comments: Method: Temporal Pulse 52 /min Comments: Pattern: Regular Respiration Rate 16 /min Comments: Pattern: Unlabored O2 SAT 94 % Comments: Room air BP Systolic 102 mm[Hg] Comments: Patient Position: Sitting; Cuff Location: Left Arm; Cuff Size: Standard BP Diastolic 62 mm[Hg] Comments: Patient Position: Sitting; Cuff Location: Left Arm; Cuff Size: Standard Weight 195 lb Height 71.25 in Body Mass Index Calculated 27.01 kg/m2 Body Surface Area Calculated 2.09 m2 :52 Temperature 97.2 f Comments: Method: Temporal Pulse 52 /min Comments: Pattern: Regular Respiration Rate 15 /min Comments: Pattern: Unlabored O2 SAT 95 % Comments: Room air BP Systolic 102 mm[Hg] Comments: Patient Position: Sitting; Cuff Location: Left Arm; Cuff Size: Standard BP Diastolic 66 mm[Hg] Comments: Patient Position: Sitting; Cuff Location: Left Arm; Cuff Size: Standard Weight 196 lb Height 71.25 in Body Mass Index Calculated 27.14 kg/m2 Body Surface Area Calculated 2.1 m2 :34 Temperature 97.1 f Comments: Method: Temporal Pulse 44 /min Comments: Pattern: Regular Respiration Rate 16 /min Comments: Pattern: Unlabored O2 SAT 95 % Comments: Room air BP Systolic 114 mm[Hg] Comments: Patient Position: Sitting; Cuff Location: Left Arm; Cuff Size: Standard BP Diastolic 68 mm[Hg] Comments: Patient Position: Sitting; Cuff Location: Left Arm; Cuff Size: Standard Weight 196 lb Height 71.25 in Body Mass Index Calculated 27.14 kg/m2 Body Surface Area Calculated 2.1 m2 :32 Temperature 97.4 f Comments: Method: Temporal Pulse 60 /min Comments: Pattern: Regular Respiration Rate 15 /min Comments: Pattern: Unlabored O2 SAT 97 % Comments: Room air BP Systolic 114 mm[Hg] Comments: Patient Position: Sitting; Cuff Location: Left Arm; Cuff Size: Standard BP Diastolic 78 mm[Hg] Comments: Patient Position: Sitting; Cuff Location: Left Arm; Cuff Size: Standard Weight 183 lb Height 71.25 in Body Mass Index Calculated 25.34 kg/m2 Body Surface Area Calculated 2.04 m2 :22 Temperature 98.5 f Comments: Method: Temporal Pulse 56 /min Comments: Pattern: Regular Respiration Rate 15 /min Comments: Pattern: Unlabored O2 SAT 95 % Comments: Room air BP Systolic 112 mm[Hg] Comments: Patient Position: Sitting; Cuff Location: Left Arm; Cuff Size: Standard BP Diastolic 76 mm[Hg] Comments: Patient Position: Sitting; Cuff Location: Left Arm; Cuff Size: Standard Weight 180 lb Height 71.25 in Body Mass Index Calculated 24.93 kg/m2 Body Surface Area Calculated 2.02 m2 :48 Temperature 97.5 f Comments: Method: Temporal Pulse 56 /min Comments: Pattern: Regular Respiration Rate 16 /min Comments: Pattern: Unlabored O2 SAT 94 % Comments: Room air BP Systolic 120 mm[Hg] Comments: Patient Position: Sitting; Cuff Location: Left Arm; Cuff Size: Standard BP Diastolic 72 mm[Hg] Comments: Patient Position: Sitting; Cuff Location: Left Arm; Cuff Size: Standard Weight 180 lb Height 71.25 in Body Mass Index Calculated 24.93 kg/m2 Body Surface Area Calculated 2.02 m2 :22 Temperature 96.8 f Comments: Method: Tympanic Pulse 68 /min Comments: Pattern: Regular Respiration Rate 18 /min Comments: Pattern: Unlabored O2 SAT 98 % Comments: Room air BP Systolic 102 mm[Hg] Comments: Patient Position: Sitting; Cuff Location: Left Arm; Cuff Size: Standard BP Diastolic 68 mm[Hg] Comments: Patient Position: Sitting; Cuff Location: Left Arm; Cuff Size: Standard Weight 177 lb Height 71.25 in Body Mass Index Calculated 24.51 kg/m2 Body Surface Area Calculated 2.01 m2 :49 Temperature 98.4 f Comments: Method: Oral Pulse 57 /min Comments: Pattern: Regular Respiration Rate 16 /min Comments: Pattern: Unlabored BP Systolic 124 mm[Hg] Comments: Patient Position: Sitting; Cuff Location: Left Arm; Cuff Size: Standard BP Diastolic 68 mm[Hg] Comments: Patient Position: Sitting; Cuff Location: Left Arm; Cuff Size: Standard Weight 184 lb Height 71.25 in Body Mass Index Calculated 25.48 kg/m2 Body Surface Area Calculated 2.04 m2 :40 Temperature 98.2 f Comments: Method: Oral Pulse 63 /min Comments: Pattern: Regular Respiration Rate 16 /min Comments: Pattern: Unlabored BP Systolic 115 mm[Hg] Comments: Patient Position: Sitting; Cuff Location: Left Arm; Cuff Size: Standard BP Diastolic 60 mm[Hg] Comments: Patient Position: Sitting; Cuff Location: Left Arm; Cuff Size: Standard Weight 197 lb Height 71.25 in Body Mass Index Calculated 27.28 kg/m2 Body Surface Area Calculated 2.1 m2 :21 Temperature 97.6 f Pulse 62 /min Comments: Pattern: Regular Respiration Rate 16 /min Comments: Pattern: Unlabored BP Systolic 118 mm[Hg] Comments: Patient Position: Sitting; Cuff Location: Left Arm; Cuff Size: Standard BP Diastolic 88 mm[Hg] Comments: Patient Position: Sitting; Cuff Location: Left Arm; Cuff Size: Standard Weight 197 lb Height 71.25 in Body Mass Index Calculated 27.28 kg/m2 Body Surface Area Calculated 2.1 m2 :19 Temperature 97.6 f Comments: Method: Oral Pulse 66 /min Comments: Pattern: Regular O2 SAT 95 % Comments: Room air BP Systolic 138 mm[Hg] Comments: Patient Position: Sitting; Cuff Location: Left Arm; Cuff Size: Standard BP Diastolic 78 mm[Hg] Comments: Patient Position: Sitting; Cuff Location: Left Arm; Cuff Size: Standard Weight 194 lb Height 71.25 in Body Mass Index Calculated 26.87 kg/m2 Body Surface Area Calculated 2.09 m2 :26 Temperature 97.6 f Pulse 60 /min Comments: Pattern: Regular Respiration Rate 16 /min Comments: Pattern: Unlabored BP Systolic 126 mm[Hg] Comments: Patient Position: Sitting; Cuff Location: Left Arm; Cuff Size: Large BP Diastolic 78 mm[Hg] Comments: Patient Position: Sitting; Cuff Location: Left Arm; Cuff Size: Large Weight 194 lb Height 71.25 in Body Mass Index Calculated 26.87 kg/m2 Body Surface Area Calculated 2.09 m2 :06 Temperature 98.6 f Comments: Method: Oral Pulse 66 /min Comments: Pattern: Regular Respiration Rate 18 /min O2 SAT 96 % Comments: Room air BP Systolic 110 mm[Hg] Comments: Patient Position: Sitting; Cuff Location: Left Arm; Cuff Size: Standard BP Diastolic 70 mm[Hg] Comments: Patient Position: Sitting; Cuff Location: Left Arm; Cuff Size: Standard Weight 195 lb Height 71.25 in Body Mass Index Calculated 27.01 kg/m2 Body Surface Area Calculated 2.09 m2 :21 Temperature 98.5 f Pulse 58 /min Comments: Pattern: Regular Respiration Rate 16 /min Comments: Pattern: Unlabored BP Systolic 118 mm[Hg] Comments: Patient Position: Sitting; Cuff Location: Left Arm; Cuff Size: Large BP Diastolic 70 mm[Hg] Comments: Patient Position: Sitting; Cuff Location: Left Arm; Cuff Size: Large Weight 195 lb Height 71.25 in Body Mass Index Calculated 27.01 kg/m2 Body Surface Area Calculated 2.09 m2 :26 Temperature 97.5 f Pulse 62 /min Comments: Pattern: Regular Respiration Rate 16 /min Comments: Pattern: Unlabored BP Systolic 112 mm[Hg] Comments: Patient Position: Sitting; Cuff Location: Left Arm; Cuff Size: Standard BP Diastolic 74 mm[Hg] Comments: Patient Position: Sitting; Cuff Location: Left Arm; Cuff Size: Standard Weight 197 lb Height 71.25 in Body Mass Index Calculated 27.28 kg/m2 Body Surface Area Calculated 2.1 m2 :08 Temperature 97.1 f Comments: Method: Oral Pulse 64 /min Comments: Pattern: Regular Respiration Rate 16 /min Comments: Pattern: Unlabored BP Systolic 120 mm[Hg] Comments: Patient Position: Sitting; Cuff Location: Left Arm; Cuff Size: Standard BP Diastolic 62 mm[Hg] Comments: Patient Position: Sitting; Cuff Location: Left Arm; Cuff Size: Standard Weight 197.1 lb Height 71.25 in Body Mass Index Calculated 27.3 kg/m2 Body Surface Area Calculated 2.1 m2 [id number] Pulse 64 /min Comments: Pattern: Regular Respiration Rate 20 /min Comments: Pattern: Labored O2 SAT 95 % Comments: Room air BP Systolic 100 mm[Hg] Comments: Patient Position: Sitting; Cuff Location: Left Arm; Cuff Size: Standard BP Diastolic 62 mm[Hg] Comments: Patient Position: Sitting; Cuff Location: Left Arm; Cuff Size: Standard Weight 192 lb Height 71.25 in Body Mass Index Calculated 26.59 kg/m2 Body Surface Area Calculated 2.08 m2 :18 Temperature 98.5 f Pulse 72 /min Comments: Pattern: Regular Respiration Rate 18 /min Comments: Pattern: Unlabored BP Systolic 104 mm[Hg] Comments: Patient Position: Sitting; Cuff Location: Left Arm; Cuff Size: Large BP Diastolic 62 mm[Hg] Comments: Patient Position: Sitting; Cuff Location: Left Arm; Cuff Size: Large Weight 192 lb Height 71.25 in Body Mass Index Calculated 26.59 kg/m2 Body Surface Area Calculated 2.08 m2 :55 Temperature 97.7 f Pulse 64 /min Comments: Pattern: Regular Respiration Rate 16 /min Comments: Pattern: Unlabored BP Systolic 100 mm[Hg] Comments: Patient Position: Sitting; Cuff Location: Left Arm; Cuff Size: Large BP Diastolic 64 mm[Hg] Comments: Patient Position: Sitting; Cuff Location: Left Arm; Cuff Size: Large Weight 193 lb Height 71.25 in Body Mass Index Calculated 26.73 kg/m2 Body Surface Area Calculated 2.08 m2 :56 Temperature 97.4 f Pulse 60 /min Comments: Pattern: Regular Respiration Rate 16 /min Comments: Pattern: Unlabored BP Systolic 124 mm[Hg] Comments: Patient Position: Sitting; Cuff Location: Left Arm; Cuff Size: Standard BP Diastolic 80 mm[Hg] Comments: Patient Position: Sitting; Cuff Location: Left Arm; Cuff Size: Standard Weight 198 lb Height 71.25 in Body Mass Index Calculated 27.42 kg/m2 Body Surface Area Calculated 2.11 m2 :57 Temperature 98.8 f Pulse 62 /min Comments: Pattern: Regular Respiration Rate 18 /min Comments: Pattern: Unlabored BP Systolic 114 mm[Hg] Comments: Patient Position: Sitting; Cuff Location: Left Arm; Cuff Size: Standard BP Diastolic 82 mm[Hg] Comments: Patient Position: Sitting; Cuff Location: Left Arm; Cuff Size: Standard Weight 201 lb :45 Pulse 66 /min Comments: Pattern: Regular Respiration Rate 18 /min Comments: Pattern: Unlabored O2 SAT 95 % Comments: Room air BP Systolic 140 mm[Hg] Comments: Patient Position: Sitting; Cuff Location: Left Arm; Cuff Size: Standard BP Diastolic 62 mm[Hg] Comments: Patient Position: Sitting; Cuff Location: Left Arm; Cuff Size: Standard :20 Temperature 98.5 f Pulse 60 /min Comments: Pattern: Regular Respiration Rate 18 /min Comments: Pattern: Unlabored BP Systolic 126 mm[Hg] Comments: Patient Position: Sitting; Cuff Location: Left Arm; Cuff Size: Large BP Diastolic 78 mm[Hg] Comments: Patient Position: Sitting; Cuff Location: Left Arm; Cuff Size: Large Weight 194 lb Height 71 in Body Mass Index Calculated 27.06 kg/m2 Body Surface Area Calculated 2.08 m2 Results Date Description Value Details :22 Comp. Metabolic Panel (14) Comments: PATIENT WAS FASTINGPERFORMED BY: MARY ANNE [employer] [facility] [id number] ALT (SGPT) 26 [iU]/L (Normal) Range: 0-44 AST (SGOT) 27 [iU]/L (Normal) Range: 0-40 Alkaline Phosphatase 88 [iU]/L (Normal) Range: 39-117 Bilirubin, Total <0.2 mg/dL (Normal) Range: 0.0-1.2 A/G Ratio 1.4 (Normal) Range: 1.2-2.2 Globulin, Total 2.7 g/dL (Normal) Range: 1.5-4.5 Albumin 3.9 g/dL (Normal) Range: 3.6-4.8 Protein, Total 6.6 g/dL (Normal) Range: 6.0-8.5 Calcium 9.4 mg/dL (Normal) Range: 8.6-10.2 Carbon Dioxide, Total 22 mmol/L (Normal) Range: 20-29 Chloride 107 mmol/L (Abnormal) Range: 96-106 Potassium 4.9 mmol/L (Normal) Range: 3.5-5.2 Sodium 143 mmol/L (Normal) Range: 134-144 BUN/Creatinine Ratio 18 (Normal) Range: 10-24 eGFR If Africn Am 94 mL/min/1.73 (Normal) eGFR If NonAfricn Am 81 mL/min/1.73 (Normal) Creatinine 0.96 mg/dL (Normal) Range: 0.76-1.27 BUN 17 mg/dL (Normal) Range: 8-27 Glucose 86 mg/dL (Normal) Range: 65-99 :32 DRUG ASSAY-PHENOBARBITOL ([id number]) Comments: PATIENT WAS FASTINGPERFORMED BY: [facility]6370 [facility] [id number] Phenobarbital, Serum 18 ug/mL (Normal) Range: 15-40 Comments: Detection Limit = 3 :32 Phenytoin (Dilantin) (94996) Comments: PATIENT WAS FASTINGPERFORMED BY: [facility]6370 [facility] [id number] Phenytoin (Dilantin), Serum 12.2 ug/mL (Normal) Range: 10.0-20.0 Comments: Detection Limit = 0.8 <0.8 Indicates None Detected :32 MICROALBUMIN: CREATININE RATIO Comments: PATIENT WAS FASTINGPERFORMED BY: [facility]6370 [facility] [id number] ([id number]) AND (29346) Alb/Creat Ratio <4.3 {mg/g_creat} (Normal) Range: 0.0-30.0 Albumin, Urine <3.0 ug/mL (Normal) Creatinine, Urine 70.5 mg/dL (Normal) :32 METABOLIC PANEL, COMPREHENSIVE Comments: PATIENT WAS FASTINGPERFORMED BY: [facility]6370 [facility] [id number] ([id number]) ALT (SGPT) 16 [iU]/L (Normal) Range: 0-44 AST (SGOT) 19 [iU]/L (Normal) Range: 0-40 Alkaline Phosphatase 125 [iU]/L (Abnormal) Range: 39-117 Bilirubin, Total <0.2 mg/dL (Normal) Range: 0.0-1.2 A/G Ratio 1.7 (Normal) Range: 1.2-2.2 Globulin, Total 2.4 g/dL (Normal) Range: 1.5-4.5 Albumin 4.0 g/dL (Normal) Range: 3.6-4.8 Protein, Total 6.4 g/dL (Normal) Range: 6.0-8.5 Calcium 9.2 mg/dL (Normal) Range: 8.6-10.2 Carbon Dioxide, Total 23 mmol/L (Normal) Range: 20-29 Chloride 107 mmol/L (Abnormal) Range: 96-106 Potassium 5.1 mmol/L (Normal) Range: 3.5-5.2 Sodium 143 mmol/L (Normal) Range: 134-144 BUN/Creatinine Ratio 19 (Normal) Range: 10-24 eGFR If Africn Am 96 mL/min/1.73 (Normal) eGFR If NonAfricn Am 83 mL/min/1.73 (Normal) Creatinine 0.94 mg/dL (Normal) Range: 0.76-1.27 BUN 18 mg/dL (Normal) Range: 8-27 Glucose 86 mg/dL (Normal) Range: 65-99 30-Mar-20189:32 CBC W/AUTO DIFF WBC Comments: PATIENT WAS FASTINGPERFORMED BY: [facility]6370 [facility] [id number] Information: [id number] ([id number]) Immature Grans (Abs) 0.0 {x10E3/uL} (Normal) Range: 0.0-0.1 Immature Granulocytes 0 % (Normal) Baso (Absolute) 0.1 {x10E3/uL} (Normal) Range: 0.0-0.2 Eos (Absolute) 0.3 {x10E3/uL} (Normal) Range: 0.0-0.4 Monocytes(Absolute) 0.6 {x10E3/uL} (Normal) Range: 0.1-0.9 Lymphs (Absolute) 1.6 {x10E3/uL} (Normal) Range: 0.7-3.1 Neutrophils (Absolute) 2.5 {x10E3/uL} (Normal) Range: 1.4-7.0 Basos 1 % (Normal) Eos 5 % (Normal) Monocytes 12 % (Normal) Lymphs 32 % (Normal) Neutrophils 50 % (Normal) Platelets 274 {x10E3/uL} (Normal) Range: 150-379 RDW 13.7 % (Normal) Range: 12.3-15.4 MCHC 32.5 g/dL (Normal) Range: 31.5-35.7 MCH 31.4 pg (Normal) Range: 26.6-33.0 MCV 97 fL (Normal) Range: 79-97 Hematocrit 39.1 % (Normal) Range: 37.5-51.0 Hemoglobin 12.7 g/dL (Abnormal) Range: 13.0-17.7 RBC 4.04 {x10E6/uL} (Abnormal) Range: 4.14-5.80 WBC 5.0 {x10E3/uL} (Normal) Range: 3.4-10.8 :32 HGB A1C (34702) Comments: PATIENT WAS FASTINGPERFORMED BY: [employer] Yujwni[address] RoadDublin [place] [id number] Hemoglobin A1c 5.4 % (Normal) Range: 4.8-5.6 Comments: . Pre-diabetes: 5.7 - 6.4 Diabetes: >6.4 Glycemic control for adults with diabetes: <7.0 :32 C-REACT PROT HIGH SENS(hsCRP) Comments: PATIENT WAS FASTINGPERFORMED BY: [employer] Yofybl[address] [facility] [place] [id number] ([id number]) C-Reactive Protein, Cardiac 7.13 mg/L (Abnormal) Range: 0.00-3.00 Comments: Relative Risk for Future Cardiovascular Event Low <1.00 Average 1.00 - 3.00 High >3.00 :32 Vitamin D Hydroxy (09478) Comments: PATIENT WAS FASTINGPERFORMED BY: [employer] [address] [facility]D[place] [id number] Vitamin D, 25-Hydroxy 50.4 ng/mL (Normal) Range: 30.0-100.0 Comments: Vitamin D deficiency has been defined by the [place] of[place] and an Endocrine Society practice guideline as alevel of serum 25-OH vitamin D less than 20 ng/mL (1,2).The Endocrine Society went on to further define vitamin Dinsufficiency as a level between 21 and 29 ng/mL (2).1. IOM ([place] [employer]). 2010. Dietary reference intakes for calcium and D. Heart [place]: The National Academies Press.2. Mely MF, Jus NC, Sophie GUARDADO, et al. Evaluation, treatment, and prevention of vitamin D deficiency: an Endocrine Society clinical practice guideline. JCEM. 2010; 96(7):1911-30. :32 LIPID PANEL (47550) Comments: PATIENT WAS FASTINGPERFORMED BY: [employer] Mvxfkh5802 [facility] [id number] LDL/HDL Ratio 1.4 {ratio} (Normal) Range: 0.0-3.6 Comments: LDL/HDL Ratio Men Women 1/2 Avg.Risk 1.0 1.5 Av g.Risk 3.6 3.2 2X Avg.Risk 6.2 5.0 3X Avg.Risk 8.0 6.1 LDL Cholesterol Calc 85 mg/dL (Normal) Range: 0-99 VLDL Cholesterol Chyna 10 mg/dL (Normal) Range: 5-40 HDL Cholesterol 59 mg/dL (Normal) Triglycerides 49 mg/dL (Normal) Range: 0-149 Cholesterol, Total 154 mg/dL (Normal) Range: 100-199 28-Dec-20179:00 CBC, PLATELETS & AUT DIFF Comments: PATIENT NOT FASTINGPERFORMED BY: MARY ANNE [facility] Gsgdmm2003 [facility] [id number] ([id number]) Immature Grans (Abs) 0.0 {x10E3/uL} (Normal) Range: 0.0-0.1 Immature Granulocytes 0 % (Normal) Baso (Absolute) 0.1 {x10E3/uL} (Normal) Range: 0.0-0.2 Eos (Absolute) 0.3 {x10E3/uL} (Normal) Range: 0.0-0.4 Monocytes(Absolute) 0.5 {x10E3/uL} (Normal) Range: 0.1-0.9 Lymphs (Absolute) 1.6 {x10E3/uL} (Normal) Range: 0.7-3.1 Neutrophils (Absolute) 2.0 {x10E3/uL} (Normal) Range: 1.4-7.0 Basos 2 % (Normal) Eos 6 % (Normal) Monocytes 12 % (Normal) Lymphs 36 % (Normal) Neutrophils 44 % (Normal) Platelets 222 {x10E3/uL} (Normal) Range: 150-379 RDW 13.4 % (Normal) Range: 12.3-15.4 MCHC 33.0 g/dL (Normal) Range: 31.5-35.7 MCH 30.8 pg (Normal) Range: 26.6-33.0 MCV 94 fL (Normal) Range: 79-97 Hematocrit 37.3 % (Abnormal) Range: 37.5-51.0 Hemoglobin 12.3 g/dL (Abnormal) Range: 13.0-17.7 RBC 3.99 {x10E6/uL} (Abnormal) Range: 4.14-5.80 WBC 4.5 {x10E3/uL} (Normal) Range: 3.4-10.8 28-Dec-20179:00 FOLIC ACID SERUM (65359) Comments: PATIENT NOT FASTINGPERFORMED BY: [employer] TechnologiesSaint Mary'S Hospital Of Blue SpringsWpnbcd8371 [facility] [id number] Folate (Folic Acid), Serum 16.2 ng/mL (Normal) Comments: A serum folate concentration of less than 3.1 ng/mL isconsidered to represent clinical deficiency. 28-Dec-20179:00 IRON BINDING CAPACITY (TIBC) Comments: PATIENT NOT FASTINGPERFORMED BY: [employer] TechnologiesSaint Mary'S Hospital Of Blue SpringsScuhib3612 [facility] [id number] (13936) Iron Saturation 41 % (Normal) Range: 15-55 Iron 86 ug/dL (Normal) Range: 38-169 UIBC 123 ug/dL (Normal) Range: 111-343 Iron Bind.Cap.(TIBC) 209 ug/dL (Abnormal) Range: 250-450 28-Dec-20179:00 FERRITIN (63097) Comments: PATIENT NOT FASTINGPERFORMED BY: [employer] TechnologiesDuane L. Waters Hospital6370 [facility] [id number] Ferritin, Serum 122 ng/mL (Normal) Range: 30-400 28-Dec-20179:00 LDH (LD) (LACTATE DEHYDROGENASE) Comments: PATIENT NOT FASTINGPERFORMED BY: [employer] TechnologiesDuane L. Waters Hospital6370 [facility] [id number] ([id number]) LDH 169 [iU]/L (Normal) Range: 121-224 28-Dec-20179:00 VITAMIN B-12 (CYANOCOBALAMIN) Comments: PATIENT NOT FASTINGPERFORMED BY: [employer] TechnologiesDuane L. Waters Hospital6370 [facility] [id number] ([id number]) Vitamin B12 627 pg/mL (Normal) Range: 232-1245 35-Ccg-931074:23 CBC W/AUTO DIFF WBC (05814) Comments: PATIENT NOT FASTINGPERFORMED BY: [facility]6370 [facility] [id number] Immature Grans (Abs) 0.0 {x10E3/uL} (Normal) Range: 0.0-0.1 Immature Granulocytes 0 % (Normal) Baso (Absolute) 0.0 {x10E3/uL} (Normal) Range: 0.0-0.2 Eos (Absolute) 0.2 {x10E3/uL} (Normal) Range: 0.0-0.4 Monocytes(Absolute) 0.6 {x10E3/uL} (Normal) Range: 0.1-0.9 Lymphs (Absolute) 1.9 {x10E3/uL} (Normal) Range: 0.7-3.1 Neutrophils (Absolute) 2.7 {x10E3/uL} (Normal) Range: 1.4-7.0 Basos 1 % (Normal) Eos 4 % (Normal) Monocytes 11 % (Normal) Lymphs 35 % (Normal) Neutrophils 49 % (Normal) Platelets 254 {x10E3/uL} (Normal) Range: 150-379 RDW 13.7 % (Normal) Range: 12.3-15.4 MCHC 32.8 g/dL (Normal) Range: 31.5-35.7 MCH 31.5 pg (Normal) Range: 26.6-33.0 MCV 96 fL (Normal) Range: 79-97 Hematocrit 38.1 % (Normal) Range: 37.5-51.0 Hemoglobin 12.5 g/dL (Abnormal) Range: 13.0-17.7 RBC 3.97 {x10E6/uL} (Abnormal) Range: 4.14-5.80 WBC 5.4 {x10E3/uL} (Normal) Range: 3.4-10.8 83-Skg-131841:23 DRUG ASSAY-PHENOBARBITOL (10993) Comments: PATIENT NOT FASTINGPERFORMED BY: [facility]6370 [facility] [id number] Phenobarbital, Serum 19 ug/mL (Normal) Range: 15-40 Comments: Detection Limit = 3 69-Ujb-793780:23 Phenytoin (Dilantin) (43240) Comments: PATIENT NOT FASTINGPERFORMED BY: [facility]6370 [facility] [id number] Phenytoin (Dilantin), Serum 16.7 ug/mL (Normal) Range: 10.0-20.0 Comments: Detection Limit = 0.8 <0.8 Indicates None Detected :22 CBC W/AUTO DIFF WBC ([id number]) Comments: PATIENT WAS FASTINGPERFORMED BY: [employer] [facility] SaginawLogicStream HealthScot[facility] [id number] Immature Grans (Abs) 0.0 {x10E3/uL} (Normal) Range: 0.0-0.1 Immature Granulocytes 0 % (Normal) Baso (Absolute) 0.1 {x10E3/uL} (Normal) Range: 0.0-0.2 Eos (Absolute) 0.3 {x10E3/uL} (Normal) Range: 0.0-0.4 Monocytes(Absolute) 0.5 {x10E3/uL} (Normal) Range: 0.1-0.9 Lymphs (Absolute) 1.4 {x10E3/uL} (Normal) Range: 0.7-3.1 Neutrophils (Absolute) 2.7 {x10E3/uL} (Normal) Range: 1.4-7.0 Basos 1 % (Normal) Eos 5 % (Normal) Monocytes 10 % (Normal) Lymphs 28 % (Normal) Neutrophils 56 % (Normal) Platelets 281 {x10E3/uL} (Normal) Range: 150-379 RDW 14.0 % (Normal) Range: 12.3-15.4 MCHC 32.1 g/dL (Normal) Range: 31.5-35.7 MCH 30.6 pg (Normal) Range: 26.6-33.0 MCV 95 fL (Normal) Range: 79-97 Hematocrit 39.3 % (Normal) Range: 37.5-51.0 Hemoglobin 12.6 g/dL (Abnormal) Range: 13.0-17.7 RBC 4.12 {x10E6/uL} (Abnormal) Range: 4.14-5.80 WBC 4.9 {x10E3/uL} (Normal) Range: 3.4-10.8 78-Izy-71878:22 DRUG ASSAY-PHENOBARBITOL (91244) Comments: PATIENT WAS FASTINGPERFORMED BY: LabCoBday70 [address] RoadLogicStream Healthblin [place] [id number] Phenobarbital, Serum 17 ug/mL (Normal) Range: 15-40 Comments: Detection Limit = 3 :22 Phenytoin (Dilantin) (31274) Comments: PATIENT WAS FASTINGPERFORMED BY: [employer] TechnologiesSsm [facility]aul [facility] Center Bbnjai3761 [address] RoadDublin [place] [id number] Phenytoin (Dilantin), Serum 12.5 ug/mL (Normal) Range: 10.0-20.0 Comments: Detection Limit = 0.8 <0.8 Indicates None Detected :03 Vitamin D Hydroxy (68744) Comments: PATIENT WAS FASTINGPERFORMED BY: [facility] Ixttji8501 [address] RoadDublin [place] [id number] Vitamin D, 25-Hydroxy 56.7 ng/mL (Normal) Range: 30.0-100.0 Comments: Vitamin D deficiency has been defined by the [place] ofMer[facility] Health Fairfield Hospitalcine and an Endocrine Society practice guideline as alevel of serum 25-OH vitamin D less than 20 ng/mL (1,2).The Endocrine Society went on to further define vitamin Dinsufficiency as a level between 21 and 29 ng/mL (2).1. IOM ([place] of [employer]). 2010. Dietary reference intakes for calcium and D. Heart [place]: The National Academies Press.2. Mely MF, Jus NC, Sophie GUARDADO, et al. Evaluation, treatment, and prevention of vitamin D deficiency: an Endocrine Society clinical practice guideline. JCEM. 2010; 96(7):1911-30. :03 MICROALBUMIN: CREATININE RATIO Comments: PATIENT WAS FASTINGPERFORMED BY: [facility]k[employer] TechnologiesSsm [facility] Myzxdx[address] [facility] [place] [id number]; review 12/21 (80700) AND (90861) Alb/Creat Ratio 3.2 {mg/g_creat} (Normal) Range: 0.0-30.0 Albumin, Urine 3.5 ug/mL (Normal) Creatinine, Urine 108.8 mg/dL (Normal) :03 LIPID PANEL (04248) Comments: PATIENT WAS FASTINGPERFORMED BY: [facility] Fleptw9506 [facility] [id number] LDL/HDL Ratio 1.6 {ratio} (Normal) Range: 0.0-3.6 Comments: LDL/HDL Ratio Men Women 1/2 Avg.Risk 1.0 1.5 Av g.Risk 3.6 3.2 2X Avg.Risk 6.2 5.0 3X Avg.Risk 8.0 6.1 LDL Cholesterol Calc 87 mg/dL (Normal) Range: 0-99 VLDL Cholesterol Chyna 12 mg/dL (Normal) Range: 5-40 HDL Cholesterol 54 mg/dL (Normal) Triglycerides 58 mg/dL (Normal) Range: 0-149 Cholesterol, Total 153 mg/dL (Normal) Range: 100-199 27-Hdk-65617:03 METABOLIC PANEL, COMPREHENSIVE Comments: PATIENT WAS FASTINGPERFORMED BY: [facility] Pvvttm1240 [facility] [id number] ([id number]) ALT (SGPT) 16 [iU]/L (Normal) Range: 0-44 AST (SGOT) 23 [iU]/L (Normal) Range: 0-40 Alkaline Phosphatase 69 [iU]/L (Normal) Range: 39-117 Bilirubin, Total 0.2 mg/dL (Normal) Range: 0.0-1.2 A/G Ratio 1.5 (Normal) Range: 1.2-2.2 Globulin, Total 2.7 g/dL (Normal) Range: 1.5-4.5 Albumin 4.1 g/dL (Normal) Range: 3.6-4.8 Protein, Total 6.8 g/dL (Normal) Range: 6.0-8.5 Calcium 9.4 mg/dL (Normal) Range: 8.6-10.2 Carbon Dioxide, Total 23 mmol/L (Normal) Range: 18-29 Chloride 104 mmol/L (Normal) Range: 96-106 Potassium 4.8 mmol/L (Normal) Range: 3.5-5.2 Sodium 141 mmol/L (Normal) Range: 134-144 BUN/Creatinine Ratio 16 (Normal) Range: 10-24 eGFR If Africn Am 79 mL/min/1.73 (Normal) eGFR If NonAfricn Am 69 mL/min/1.73 (Normal) Creatinine 1.10 mg/dL (Normal) Range: 0.76-1.27 BUN 18 mg/dL (Normal) Range: 8-27 Glucose 86 mg/dL (Normal) Range: 65-99 :03 HGB A1C (55647) Comments: PATIENT WAS FASTINGPERFORMED BY: [employer] TechnologiesDuane L. Waters Hospital6370 [facility] [id number] Hemoglobin A1c 5.5 % (Normal) Range: 4.8-5.6 Comments: . Pre-diabetes: 5.7 - 6.4 Diabetes: >6.4 Glycemic control for adults with diabetes: <7.0 :11 LIPID PANEL (54517) Comments: PATIENT WAS FASTINGPERFORMED BY: [employer] TechnologiesDwayne Ville 2747670 [facility] [id number] LDL/HDL Ratio 1.5 {ratio_units} (Normal) Range: 0.0-3.6 Comments: LDL/HDL Ratio Men Women 1/2 Avg.Risk 1.0 1.5 Av g.Risk 3.6 3.2 2X Avg.Risk 6.2 5.0 3X Avg.Risk 8.0 6.1 LDL Cholesterol Calc 93 mg/dL (Normal) Range: 0-99 VLDL Cholesterol Chyna 19 mg/dL (Normal) Range: 5-40 HDL Cholesterol 61 mg/dL (Normal) Triglycerides 97 mg/dL (Normal) Range: 0-149 Cholesterol, Total 173 mg/dL (Normal) Range: 100-199 61-Brz-80002:11 C-REACT PROT HIGH SENS(hsCRP) Comments: PATIENT WAS FASTINGPERFORMED BY: Xplornet CommunicationsSaint Barnabas Medical CenterXarljn8191 [facility] [id number] (35301) C-Reactive Protein, Cardiac 4.51 mg/L (Abnormal) Range: 0.00-3.00 Comments: Relative Risk for Future Cardiovascular Event Low <1.00 Average 1.00 - 3.00 High >3.00 56-Pys-13303:11 DRUG ASSAY-PHENOBARBITOL (58324) Comments: PATIENT WAS FASTINGPERFORMED BY: [employer] TechnologiesDuane L. Waters Hospital6370 [facility] [id number] Phenobarbital, Serum 19 ug/mL (Normal) Range: 15-40 Comments: Detection Limit = 3 82-Efn-52849:11 Phenytoin (Dilantin) (67314) Comments: PATIENT WAS FASTINGPERFORMED BY: Enkata TechnologiesDuane L. Waters Hospital6370 [facility] [id number]; review 09/21 Phenytoin (Dilantin), Serum 15.9 ug/mL (Normal) Range: 10.0-20.0 Comments: Detection Limit = 0.8 <0.8 Indicates None Detected 95-Eki-83524:11 METABOLIC PANEL, COMPREHENSIVE Comments: PATIENT WAS FASTINGPERFORMED BY: Xplornet CommunicationsPinon Health CenterDmmzab0680 [facility] [id number] ([id number]) ALT (SGPT) 16 [iU]/L (Normal) Range: 0-44 AST (SGOT) 19 [iU]/L (Normal) Range: 0-40 Alkaline Phosphatase, S 84 [iU]/L (Normal) Range: 39-117 Bilirubin, Total 0.2 mg/dL (Normal) Range: 0.0-1.2 A/G Ratio 1.5 (Normal) Range: 1.2-2.2 Globulin, Total 2.9 g/dL (Normal) Range: 1.5-4.5 Albumin, Serum 4.4 g/dL (Normal) Range: 3.6-4.8 Protein, Total, Serum 7.3 g/dL (Normal) Range: 6.0-8.5 Calcium, Serum 9.9 mg/dL (Normal) Range: 8.6-10.2 Carbon Dioxide, Total 23 mmol/L (Normal) Range: 18-29 Chloride, Serum 102 mmol/L (Normal) Range: 96-106 Potassium, Serum 4.7 mmol/L (Normal) Range: 3.5-5.2 Sodium, Serum 143 mmol/L (Normal) Range: 134-144 BUN/Creatinine Ratio 15 (Normal) Range: 10-24 eGFR If Africn Am 81 mL/min/1.73 (Normal) eGFR If NonAfricn Am 70 mL/min/1.73 (Normal) Creatinine, Serum 1.09 mg/dL (Normal) Range: 0.76-1.27 BUN 16 mg/dL (Normal) Range: 8-27 Glucose, Serum 84 mg/dL (Normal) Range: 65-99 36-Iwh-46025:11 CBC W/AUTO DIFF WBC (81183) Comments: PATIENT WAS FASTINGPERFORMED BY: Xplornet CommunicationsSaint Barnabas Medical CenterGrcxzz8494 [facility] [id number] Immature Grans (Abs) 0.0 {x10E3/uL} (Normal) Range: 0.0-0.1 Immature Granulocytes 0 % (Normal) Baso (Absolute) 0.1 {x10E3/uL} (Normal) Range: 0.0-0.2 Eos (Absolute) 0.2 {x10E3/uL} (Normal) Range: 0.0-0.4 Monocytes(Absolute) 0.3 {x10E3/uL} (Normal) Range: 0.1-0.9 Lymphs (Absolute) 2.0 {x10E3/uL} (Normal) Range: 0.7-3.1 Neutrophils (Absolute) 2.7 {x10E3/uL} (Normal) Range: 1.4-7.0 Basos 2 % (Normal) Eos 3 % (Normal) Monocytes 6 % (Normal) Lymphs 38 % (Normal) Neutrophils 51 % (Normal) Platelets 296 {x10E3/uL} (Normal) Range: 150-379 RDW 13.8 % (Normal) Range: 12.3-15.4 MCHC 32.6 g/dL (Normal) Range: 31.5-35.7 MCH 31.3 pg (Normal) Range: 26.6-33.0 MCV 96 fL (Normal) Range: 79-97 Hematocrit 41.7 % (Normal) Range: 37.5-51.0 Hemoglobin 13.6 g/dL (Normal) Range: 13.0-17.7 RBC 4.35 {x10E6/uL} (Normal) Range: 4.14-5.80 WBC 5.3 {x10E3/uL} (Normal) Range: 3.4-10.8 20-Inu-96829:11 Lyme Disease Antibody W/ Comments: PATIENT WAS FASTINGPERFORMED BY: [facility]6370 [facility] [id number] Reflex ([id number]) Lyme IgG/IgM Ab <0.91 {ISR} (Normal) Range: 0.00-0.90 Comments: Negative <0.91 Equivocal 0.91 - 1.09 Positive >1.09 0-Urk-822883:15 C-Reactive Protein (13751) Comments: PATIENT NOT FASTINGPERFORMED BY: [employer]6370 [facility] SemiconductorScotland Memorial Hospital [id number] C-Reactive Protein, Quant 7.5 mg/L (Abnormal) Range: 0.0-4.9 :15 RHEUMATOID FACTOR-QUANT (70568) Comments: PATIENT NOT FASTINGPERFORMED BY: [employer] Ffxqqd1585 [facility] [id number] RA Latex Turbid. <10.0 {IU/mL} (Normal) Range: 0.0-13.9 0-Jox-907274:15 Lyme Disease Antibody W/ Comments: PATIENT NOT FASTINGPERFORMED BY: [employer]6370 [facility] SemiconductorScotland Memorial Hospital [id number] Reflex ([id number]) Lyme IgG/IgM Ab <0.91 {ISR} (Normal) Range: 0.00-0.90 Comments: Negative <0.91 Equivocal 0.91 - 1.09 Positive >1.09 :45 CBC W/AUTO DIFF WBC (23315) Comments: PATIENT WAS FASTINGPERFORMED BY: [employer]6370 [facility] [id number] Immature Grans (Abs) 0.0 {x10E3/uL} (Normal) Range: 0.0-0.1 Immature Granulocytes 0 % (Normal) Baso (Absolute) 0.1 {x10E3/uL} (Normal) Range: 0.0-0.2 Eos (Absolute) 0.3 {x10E3/uL} (Normal) Range: 0.0-0.4 Monocytes(Absolute) 0.6 {x10E3/uL} (Normal) Range: 0.1-0.9 Lymphs (Absolute) 1.1 {x10E3/uL} (Normal) Range: 0.7-3.1 Neutrophils (Absolute) 2.9 {x10E3/uL} (Normal) Range: 1.4-7.0 Basos 1 % (Normal) Eos 5 % (Normal) Monocytes 12 % (Normal) Lymphs 23 % (Normal) Neutrophils 59 % (Normal) Platelets 277 {x10E3/uL} (Normal) Range: 150-379 RDW 14.3 % (Normal) Range: 12.3-15.4 MCHC 31.9 g/dL (Normal) Range: 31.5-35.7 MCH 30.6 pg (Normal) Range: 26.6-33.0 MCV 96 fL (Normal) Range: 79-97 Hematocrit 37.6 % (Normal) Range: 37.5-51.0 Hemoglobin 12.0 g/dL (Abnormal) Range: 12.6-17.7 RBC 3.92 {x10E6/uL} (Abnormal) Range: 4.14-5.80 WBC 4.9 {x10E3/uL} (Normal) Range: 3.4-10.8 :45 METABOLIC PANEL, COMPREHENSIVE Comments: PATIENT WAS FASTINGPERFORMED BY: LabCoSaint Barnabas Medical CenterFaylma0977 [facility] [id number] ([id number]) ALT (SGPT) 40 [iU]/L (Normal) Range: 0-44 AST (SGOT) 34 [iU]/L (Normal) Range: 0-40 Alkaline Phosphatase, S 84 [iU]/L (Normal) Range: 39-117 Bilirubin, Total <0.2 mg/dL (Normal) Range: 0.0-1.2 A/G Ratio 1.5 (Normal) Range: 1.2-2.2 Globulin, Total 2.7 g/dL (Normal) Range: 1.5-4.5 Albumin, Serum 4.0 g/dL (Normal) Range: 3.6-4.8 Protein, Total, Serum 6.7 g/dL (Normal) Range: 6.0-8.5 Calcium, Serum 9.6 mg/dL (Normal) Range: 8.6-10.2 Carbon Dioxide, Total 22 mmol/L (Normal) Range: 18-29 Chloride, Serum 103 mmol/L (Normal) Range: 96-106 Potassium, Serum 5.0 mmol/L (Normal) Range: 3.5-5.2 Sodium, Serum 143 mmol/L (Normal) Range: 134-144 BUN/Creatinine Ratio 12 (Normal) Range: 10-24 eGFR If Africn Am 99 mL/min/1.73 (Normal) eGFR If NonAfricn Am 86 mL/min/1.73 (Normal) Creatinine, Serum 0.92 mg/dL (Normal) Range: 0.76-1.27 BUN 11 mg/dL (Normal) Range: 8-27 Glucose, Serum 93 mg/dL (Normal) Range: 65-99 :45 PSA (PROSTATE SPECIFIC Comments: PATIENT WAS FASTINGPERFORMED BY: [employer] Nrstly8269 [facility] [id number] ANTIGEN) (V76.44) Prostate Specific Ag, 2.6 ng/mL (Normal) Range: 0.0-4.0 Serum Comments: Heysan ECLIA methodology. .According to the [place] [employer], Serum PSA shoulddecrease and remain at undetectable levels after radicalprostatectomy. The AUA defines biochemical recurrence as an initialPSA value 0.2 ng/mL or greater followed by a subsequent confirmatoryPSA value 0.2 ng/mL or greater.Values obtained with d ifferent assay methods or kits cannot be usedinterchangeably. Results cannot be interpreted as absolute evidenceof the presence or absence of malignant disease. 92-Fpz-297564:32 DRUG ASSAY-PHENOBARBITOL (38787) Comments: PATIENT WAS FASTINGPERFORMED BY: [employer] Vnnnrs4513 [facility] [id number] Phenobarbital, Serum 17 ug/mL (Normal) Range: 15-40 Comments: Detection Limit = 3 :32 Phenytoin (Dilantin) (70725) Comments: PATIENT WAS FASTINGPERFORMED BY: [employer] Zpdxfh0917 [facility] [id number] Phenytoin (Dilantin), Serum 14.8 ug/mL (Normal) Range: 10.0-20.0 Comments: Detection Limit = 0.8 <0.8 Indicates None Detected :32 METABOLIC PANEL, COMPREHENSIVE Comments: PATIENT WAS FASTINGPERFORMED BY: [employer] Ndwwil0408 [facility] [id number] ([id number]) ALT (SGPT) 18 [iU]/L (Normal) Range: 0-44 AST (SGOT) 24 [iU]/L (Normal) Range: 0-40 Alkaline Phosphatase, S 114 [iU]/L (Normal) Range: 39-117 Bilirubin, Total 0.2 mg/dL (Normal) Range: 0.0-1.2 A/G Ratio 1.5 (Normal) Range: 1.2-2.2 Globulin, Total 2.8 g/dL (Normal) Range: 1.5-4.5 Albumin, Serum 4.2 g/dL (Normal) Range: 3.6-4.8 Protein, Total, Serum 7.0 g/dL (Normal) Range: 6.0-8.5 Calcium, Serum 9.5 mg/dL (Normal) Range: 8.6-10.2 Carbon Dioxide, Total 21 mmol/L (Normal) Range: 18-29 Chloride, Serum 103 mmol/L (Normal) Range: 96-106 Potassium, Serum 4.6 mmol/L (Normal) Range: 3.5-5.2 Sodium, Serum 141 mmol/L (Normal) Range: 134-144 BUN/Creatinine Ratio 22 (Normal) Range: 10-24 eGFR If Africn Am 95 mL/min/1.73 (Normal) eGFR If NonAfricn Am 82 mL/min/1.73 (Normal) Creatinine, Serum 0.95 mg/dL (Normal) Range: 0.76-1.27 BUN 21 mg/dL (Normal) Range: 8-27 Glucose, Serum 73 mg/dL (Normal) Range: 65-99 55-Ycp-356706:32 LIPID PANEL (05888) Comments: PATIENT WAS FASTINGPERFORMED BY: [employer]70 [facility] [id number] LDL/HDL Ratio 1.7 {ratio_units} (Normal) Range: 0.0-3.6 Comments: LDL/HDL Ratio Men Women 1/2 Avg.Risk 1.0 1.5 Av g.Risk 3.6 3.2 2X Avg.Risk 6.2 5.0 3X Avg.Risk 8.0 6.1 LDL Cholesterol Calc 100 mg/dL (Abnormal) Range: 0-99 VLDL Cholesterol Chyna 9 mg/dL (Normal) Range: 5-40 HDL Cholesterol 58 mg/dL (Normal) Triglycerides 47 mg/dL (Normal) Range: 0-149 Cholesterol, Total 167 mg/dL (Normal) Range: 100-199 45-Wzp-256808:32 HGB A1C (88223) Comments: PATIENT WAS FASTINGPERFORMED BY: EZbuildingEHSox RoadDublin [place] [id number] Hemoglobin A1c 5.6 % (Normal) Range: 4.8-5.6 Comments: . Pre-diabetes: 5.7 - 6.4 Diabetes: >6.4 Glycemic control for adults with diabetes: <7.0 :32 Vitamin D Hydroxy (52557) Comments: PATIENT WAS FASTINGPERFORMED BY: [employer] TechnologiesSsm [facility] Dkeouq9868 [facility] [id number] Vitamin D, 25-Hydroxy 49.9 ng/mL (Normal) Range: 30.0-100.0 Comments: Vitamin D deficiency has been defined by the [place] of[place] and an Endocrine Society practice guideline as alevel of serum 25-OH vitamin D less than 20 ng/mL (1,2).The Endocrine Society went on to further define vitamin Dinsufficiency as a level between 21 and 29 ng/mL (2).1. IOM ([place] of Medicine). 2010. Dietary reference intakes for calcium and D. Heart [place]: The National Academies Press.2. Mely MF, Jus CASTILLO, Sophie GUARDADO, et al. Evaluation, treatment, and prevention of vitamin D deficiency: an Endocrine Society clinical practice guideline. JCEM. 2010; 96(7):1911-30. 47-Enp-077165:32 C-REACT PROT HIGH SENS(hsCRP) Comments: PATIENT WAS FASTINGPERFORMED BY: [employer] Rgenan8962 [facility] [id number] ([id number]) C-Reactive Protein, Cardiac 7.94 mg/L (Abnormal) Range: 0.00-3.00 Comments: Relative Risk for Future Cardiovascular Event Low <1.00 Average 1.00 - 3.00 High >3.00 :56 Potassium Serum (24844) Comments: PATIENT NOT FASTINGPERFORMED BY: Enkata TechnologiesDuane L. Waters Hospital6370 [facility] [id number] Information: [id number], [id number] Potassium, Serum 5.2 mmol/L (Normal) Range: 3.5-5.2 :29 Potassium Serum (67548) Comments: PATIENT NOT FASTINGPERFORMED BY: [facility]6370 [facility] [id number] Potassium, Serum 5.3 mmol/L (Abnormal) Range: 3.5-5.2 : DRUG ASSAY-PHENOBARBITOL (35871) Comments: PATIENT NOT FASTINGPERFORMED BY: [facility]6370 [facility] [id number] Phenobarbital, Serum 21 ug/mL (Normal) Range: 15-40 Comments: Detection Limit = 3 :29 Phenytoin (Dilantin) (04580) Comments: PATIENT NOT FASTINGPERFORMED BY: [facility]6370 [facility] [id number] Phenytoin (Dilantin), Serum 13.8 ug/mL (Normal) Range: 10.0-20.0 Comments: : Therapeutic 6.0 - 14.0 . Detectio n Limit = 0.8 <0.8 Indicates None Detected : HEPATITIS C ANTIBODY (66335) Comments: PATIENT NOT FASTINGPERFORMED BY: [facility]6370 [facility] [id number] Hep C Virus Ab <0.1 {s/co_ratio} (Normal) Range: 0.0-0.9 Comments: Negative: < 0.8 Indeterminate: 0.8 - 0.9 Positive: > 0.9 . The CDC recommends that a positive HCV antibody result be followed up with a HCV Nucleic Acid Amplification test (389258). :58 HGB A1C (13134) Comments: PATIENT WAS FASTINGPERFORMED BY: [facility]6370 [facility] [id number] Hemoglobin A1c 5.6 % (Normal) Range: 4.8-5.6 Comments: . Pre-diabetes: 5.7 - 6.4 Diabetes: >6.4 Glycemic control for adults with diabetes: <7.0 :58 CBC W/AUTO DIFF WBC (92949) Comments: PATIENT WAS FASTINGPERFORMED BY: [facility]6370 [facility] [id number] Immature Grans (Abs) 0.0 {x10E3/uL} (Normal) Range: 0.0-0.1 Immature Granulocytes 0 % (Normal) Baso (Absolute) 0.1 {x10E3/uL} (Normal) Range: 0.0-0.2 Eos (Absolute) 0.2 {x10E3/uL} (Normal) Range: 0.0-0.4 Monocytes(Absolute) 0.6 {x10E3/uL} (Normal) Range: 0.1-0.9 Lymphs (Absolute) 1.9 {x10E3/uL} (Normal) Range: 0.7-3.1 Neutrophils (Absolute) 2.8 {x10E3/uL} (Normal) Range: 1.4-7.0 Basos 2 % (Normal) Eos 4 % (Normal) Monocytes 10 % (Normal) Lymphs 34 % (Normal) Neutrophils 50 % (Normal) Platelets 268 {x10E3/uL} (Normal) Range: 150-379 RDW 13.9 % (Normal) Range: 12.3-15.4 MCHC 32.3 g/dL (Normal) Range: 31.5-35.7 MCH 30.6 pg (Normal) Range: 26.6-33.0 MCV 95 fL (Normal) Range: 79-97 Hematocrit 40.0 % (Normal) Range: 37.5-51.0 Hemoglobin 12.9 g/dL (Normal) Range: 12.6-17.7 RBC 4.22 {x10E6/uL} (Normal) Range: 4.14-5.80 WBC 5.6 {x10E3/uL} (Normal) Range: 3.4-10.8 03-Nov-20169:58 METABOLIC PANEL, COMPREHENSIVE Comments: PATIENT WAS FASTINGPERFORMED BY: LabCoSaint Barnabas Medical CenterNqyhct7002 [facility] [id number] ([id number]) ALT (SGPT) 16 [iU]/L (Normal) Range: 0-44 AST (SGOT) 21 [iU]/L (Normal) Range: 0-40 Alkaline Phosphatase, S 91 [iU]/L (Normal) Range: 39-117 Bilirubin, Total 0.2 mg/dL (Normal) Range: 0.0-1.2 A/G Ratio 1.4 (Normal) Range: 1.1-2.5 Comments: Effective November 08, 2016 the reference interval for A/G Ratio will be changing to: Age Male Female 0 - 7 d ays 1.1 - 2.3 1.1 - 2.3 8 - 30 days 1.2 - 2.8 1.2 - 2.8 1 - 6 months 1.3 - 3.6 1.3 - 3.6 7 months - 5 years 1.5 - 2.6 1.5 - 2.6 > 5 years 1.2 - 2.2 1.2 - 2.2 Globulin, Total 3.0 g/dL (Normal) Range: 1.5-4.5 Albumin, Serum 4.2 g/dL (Normal) Range: 3.6-4.8 Protein, Total, Serum 7.2 g/dL (Normal) Range: 6.0-8.5 Calcium, Serum 9.8 mg/dL (Normal) Range: 8.6-10.2 Carbon Dioxide, Total 22 mmol/L (Normal) Range: 18-29 Chloride, Serum 104 mmol/L (Normal) Range: 96-106 Potassium, Serum 5.3 mmol/L (Abnormal) Range: 3.5-5.2 Sodium, Serum 144 mmol/L (Normal) Range: 134-144 BUN/Creatinine Ratio 15 (Normal) Range: 10-22 eGFR If Africn Am 94 mL/min/1.73 (Normal) eGFR If NonAfricn Am 81 mL/min/1.73 (Normal) Creatinine, Serum 0.97 mg/dL (Normal) Range: 0.76-1.27 BUN 15 mg/dL (Normal) Range: 8-27 Glucose, Serum 84 mg/dL (Normal) Range: 65-99 03-Nov-20169:58 LIPID PANEL (01339) Comments: PATIENT WAS FASTINGPERFORMED BY: LabCoSaint Barnabas Medical CenterNirzmf4817 [facility] [id number] LDL/HDL Ratio 1.6 {ratio_units} Range: 0.0-3.6 (Normal) Comments: LDL/HDL Ratio Men Women 1/2 Avg.Risk 1.0 1.5 Av g.Risk 3.6 3.2 2X Avg.Risk 6.2 5.0 3X Avg.Risk 8.0 6.1 LDL Cholesterol Calc 92 mg/dL (Normal) Range: 0-99 VLDL Cholesterol Chyna 12 mg/dL (Normal) Range: 5-40 HDL Cholesterol 59 mg/dL (Normal) Triglycerides 60 mg/dL (Normal) Range: 0-149 Cholesterol, Total 163 mg/dL (Normal) Range: 100-199 Potassium, Serum 4.9 mmol/L (Normal) Comments: PATIENT NOT FASTINGPERFORMED BY: Enkata TechnologiesDuane L. Waters Hospital6370 [facility] Hospitalbl[facility] [place] [id number] 0:01 Range: 3.5-5.2 :58 C-REACT PROT HIGH SENS(hsCRP) Comments: PATIENT WAS FASTINGPERFORMED BY: Xplornet CommunicationsSaint Barnabas Medical CenterXyohns8321 [facility]in [place] [id number] ([id number]) C-Reactive Protein, Cardiac 6.91 mg/L (Abnormal) Range: 0.00-3.00 Comments: Relative Risk for Future Cardiovascular Event Low <1.00 Average 1.00 - 3.00 High >3.00 :28 TESTOSTERONE FREE (06568) Comments: PATIENT NOT FASTINGPERFORMED BY: Enkata TechnologiesDuane L. Waters Hospital6370 [facility] [id number] BY: [address] [id number] Free Testosterone(Direct) 2.7 pg/mL (Abnormal) Range: 6.6-18.1 :38 Phenytoin (Dilantin) (22973) Comments: PATIENT WAS FASTINGPERFORMED BY: [employer]kata TechnologiesDuane L. Waters Hospital6370 [facility] [id number] Phenytoin (Dilantin), Serum 12.3 ug/mL (Normal) Range: 10.0-20.0 Comments: : Therapeutic 6.0 - 14.0 . Detectio n Limit = 0.8 <0.8 Indicates None Detected :38 Vitamin D Hydroxy (57468) Comments: PATIENT WAS FASTINGPERFORMED BY: [employer] TechnologiesCoSaint Barnabas Medical CenterKesaof8341 [facility] Hospitalblin [place] [id number] Vitamin D, 25-Hydroxy 57.6 ng/mL (Normal) Range: 30.0-100.0 Comments: Vitamin D deficiency has been defined by the [place] of[place] and an Endocrine Society practice guideline as alevel of serum 25-OH vitamin D less than 20 ng/mL (1,2).The Endocrine Society went on to further define vitamin Dinsufficiency as a level between 21 and 29 ng/mL (2).1. IOM ([place] of [employer]). 2010. Dietary reference intakes for calcium and D. Heart [place]: The National Academies Press.2. Mely MF, Jus CASTILLO, Sophie GUARDADO, et al. Evaluation, treatment, and prevention of vitamin D deficiency: an Endocrine Society clinical practice guideline. JCEM. 2010; 96(7):1911-30. :38 LIPID PANEL (95117) Comments: PATIENT WAS FASTINGPERFORMED BY: [place] [employer] [facility] [id number] LDL/HDL Ratio 1.3 {ratio_units} (Normal) Range: 0.0-3.6 Comments: LDL/HDL Ratio Men Women 1/2 Avg.Risk 1.0 1.5 Av g.Risk 3.6 3.2 2X Avg.Risk 6.2 5.0 3X Avg.Risk 8.0 6.1 LDL Cholesterol Calc 78 mg/dL (Normal) Range: 0-99 VLDL Cholesterol Chyna 9 mg/dL (Normal) Range: 5-40 HDL Cholesterol 59 mg/dL (Normal) Triglycerides 44 mg/dL (Normal) Range: 0-149 Cholesterol, Total 146 mg/dL (Normal) Range: 100-199 :38 MICROALBUMIN: CREATININE RATIO Comments: PATIENT WAS FASTINGPERFORMED BY: [employer] [place] [employer] [facility] [id number] ([id number]) AND (96943) Microalb/Creat Ratio <3.2 {mg/g_creat} (Normal) Range: 0.0-30.0 Microalbumin, Urine <3.0 ug/mL (Normal) Creatinine, Urine 95.2 mg/dL (Normal) :38 METABOLIC PANEL, COMPREHENSIVE Comments: PATIENT WAS FASTINGPERFORMED BY: [place] [employer] [facility] [id number] ([id number]) ALT (SGPT) 14 [iU]/L (Normal) Range: 0-44 AST (SGOT) 15 [iU]/L (Normal) Range: 0-40 Alkaline Phosphatase, S 89 [iU]/L (Normal) Range: 39-117 Bilirubin, Total <0.2 mg/dL (Normal) Range: 0.0-1.2 A/G Ratio 1.4 (Normal) Range: 1.1-2.5 Globulin, Total 2.8 g/dL (Normal) Range: 1.5-4.5 Albumin, Serum 4.0 g/dL (Normal) Range: 3.6-4.8 Protein, Total, Serum 6.8 g/dL (Normal) Range: 6.0-8.5 Calcium, Serum 9.4 mg/dL (Normal) Range: 8.6-10.2 Carbon Dioxide, Total 24 mmol/L (Normal) Range: 18-29 Chloride, Serum 101 mmol/L (Normal) Range: 97-106 Comments: Effective August 09, 2016 the reference interval for Chloride, Serum will be changing to: 96 - 106 Potassium, Serum 5.4 mmol/L (Abnormal) Range: 3.5-5.2 Sodium, Serum 140 mmol/L (Normal) Range: 136-144 Comments: Effective August 09, 2016 the reference interval for Sodium, Serum will be changing to: 134 - 144 BUN/Creatinine Ratio 18 (Normal) Range: 10-22 eGFR If Africn Am 87 mL/min/1.73 (Normal) eGFR If NonAfricn Am 75 mL/min/1.73 (Normal) Creatinine, Serum 1.03 mg/dL (Normal) Range: 0.76-1.27 BUN 19 mg/dL (Normal) Range: 8-27 Glucose, Serum 93 mg/dL (Normal) Range: 65-99 :38 HGB A1C (66037) Comments: PATIENT WAS FASTINGPERFORMED BY: LabCoSaint Barnabas Medical CenterFjtlpe5772 [facility] [id number] Hemoglobin A1c 5.6 % (Normal) Range: 4.8-5.6 Comments: . Pre-diabetes: 5.7 - 6.4 Diabetes: >6.4 Glycemic control for adults with diabetes: <7.0 :38 C-REACT PROT HIGH SENS(hsCRP) Comments: PATIENT WAS FASTINGPERFORMED BY: [place] [id number] [facility] [id number] ([id number]) C-Reactive Protein, Cardiac 16.47 mg/L (Abnormal) Range: 0.00-3.00 Comments: Relative Risk for Future Cardiovascular Event Low <1.00 Average 1.00 - 3.00 High >3.00 :28 PSA (PROSTATE SPECIFIC Comments: PATIENT NOT FASTINGPERFORMED BY: [place] 5633570 [facility] [id number] BY: [address] [id number] ANTIGEN) (V76.44) Prostate Specific Ag, 1.6 ng/mL (Normal) Range: 0.0-4.0 Serum Comments: Heysan ECLIA methodology. .According to the [place] [employer], Serum PSA shoulddecrease and remain at undetectable levels after radicalprostatectomy. The AUA defines biochemical recurrence as an initialPSA value 0.2 ng/mL or greater followed by a subsequent confirmatoryPSA value 0.2 ng/mL or greater.Values obtained with d ifferent assay methods or kits cannot be usedinterchangeably. Results cannot be interpreted as absolute evidenceof the presence or absence of malignant disease. :28 Phenytoin (Dilantin) Comments: PATIENT NOT FASTINGPERFORMED BY: Enkata TechnologiesDuane L. Waters Hospital6370 [facility] [id number] BY: [address] [id number] ([id number]) Phenytoin (Dilantin), Serum 18.8 ug/mL (Normal) Range: 10.0-20.0 Comments: : Therapeutic 6.0 - 14.0 . Detectio n Limit = 0.8 <0.8 Indicates None Detected 36-Asa-099424:24 Phenytoin (Dilantin) Comments: PATIENT NOT FASTINGPERFORMED BY: [facility]6370 [facility] [id number] Information: [id number] (99725) Phenytoin (Dilantin), Serum 15.8 ug/mL (Normal) Range: 10.0-20.0 Comments: : Therapeutic 6.0 - 14.0 . Detectio n Limit = 0.8 <0.8 Indicates None Detected 70-Opb-470769:19 Phenytoin (Dilantin) (73580) Comments: Order Date: 04/08/16Order Date: 04/08/16Time Medication is to be Given? [facility] [address] [place], [place], [id number] PHENYTOIN 21.2 mL (Abnormal) Range: 10.0-20.0 Comments: Resulst Called to Charline 04/08/16 at 1450 by CCRYTZER.Results read back by Charline. 23-Wgp-676451:34 CBC W/Diff, Automated Comments: [facility] [address] [place], [place], [id number] Absolute Lymph 2.34 {X10_3/ul} (Normal) Range: 0.83-4.51 Absolute Neut 2.9 {X10_3/uL} (Normal) Range: 2.0-7.7 IM GRAN % 0.000 % (Normal) Range: 0.0-0.9 Comments: IG% - Immature Granulocytes (promyelocytes, myelocytes andmetamyelocytes) > 1% indicates that a LEFT SHIFT is Present. BASO% 1.6 % (Abnormal) Range: 0-1 EO% 3.9 % (Normal) Range: 0-5 MONO% 10.1 % (Abnormal) Range: 0-10 LY% 37.6 % (Normal) Range: 19-41 NEUT% 46.8 % (Abnormal) Range: 47-70 MPV 10.3 fL (Normal) Range: 6.2-12.0 PLT 219 K/mm3 (Normal) Range: 150-450 RDW SD 46.1 fL (Abnormal) Range: 35.1-43.9 RDW CV 13.4 % (Normal) Range: 11.6-14.6 MCHC 32.6 {g/gl} (Normal) Range: 32-36 MCH 30.9 pg (Normal) Range: 27.0-32.0 MCV 94.8 fL (Abnormal) Range: 80-94 HCT 40.5 % (Normal) Range: 40-54 HGB 13.2 g/dL (Normal) Range: 13.0-16.5 RBC 4.27 {M/mm3} (Abnormal) Range: 4.6-6.2 WBC 6.2 K/mm3 (Normal) Range: 4.4-11.0 :34 Comprehensive Metabolic Profil Comments: [facility] [id number] [place], [place], [id number] GAP 4 (Abnormal) Range: 5-15 CO2 31.0 mmol/L (Normal) Range: 21.0-32.0 CL 105 mmol/L (Normal) Range: 98-107 K 5.1 mmol/L (Normal) Range: 3.5-5.1 NA 140 mmol/L (Normal) Range: 136-145 T BILI 0.30 mg/dL (Normal) Range: 0.20-1.00 ALT 28 U/L (Normal) Range: 12-78 ALK P 103 U/L (Normal) Range: 50-136 AST 23 U/L (Normal) Range: 15-37 CA 8.7 mg/dL (Normal) Range: 8.5-10.1 A/G 1.2 {RATIO} (Normal) Range: 0.9-2.4 GLOB 3.2 g/dL (Normal) Range: 2.3-3.5 ALB 4.0 g/dL (Normal) Range: 3.4-5.0 T PROT 7.2 g/dL (Normal) Range: 6.4-8.2 BUN/CRE 16.3 {RATIO} (Normal) Range: 10-20 EST GFR - AA 92 mL/min (Normal) Comments: GFR Calc EST GFR 76 mL/min (Normal) Comments: Non- GFR Calc CREAT,SERUM 1.04 mg/dL (Normal) Range: 0.70-1.30 Comments: The validity of the calculated GFR AND GFRAA in patients over70 years has not been determined. Clinical correlation isessential. BUN 17 mg/dL (Normal) Range: 7-18 GLU 75 mg/dL (Normal) Range: 70-110 :34 Magnesium Comments: [facility] [id number] [place], [id number] MG 2.2 mg/dL (Normal) Range: 1.8-2.4 [id number] Phenobarbital Comments: Time Medication is to be Given? 0000[facility] [address]mufg[address] [place], [address] PHENOBARB 22.0 ug/mL (Normal) Range: 10.0-40.0 [id number] Phenytoin (Dilantin) Level Comments: Time Medication is to be Given? 0000[facility] [address] [place], [address] PHENYTOIN 28.3 mL (Abnormal) Range: 10.0-20.0 Comments: Critical Result(s) Called at: 14:19:48 04/07/2016 by: Katlin kahn at [facility] [id number]-[id number] Thyroid Stim Hormone (TSH) Comments: [facility] [address] [place]avez, [address] TSH 1.55 {uIU/mL} (Normal) Range: 0.358-3.74 17-Nax-[id number]:34 Vitamin B12 1009 pg/mL (Abnormal) Comments: [facility] Jvzoaomjuy5160 [place] Kaba, [id number](185 Range: 211-911 :11 CBC W/Diff, Automated Comments: [facility] Tztcjimstq0879 JocelynFLORIDAL[place], [address] Absolute Lymph 1.51 {X10_3/ul} (Normal) Range: 0.83-4.51 Absolute Neut 2.6 {X10_3/uL} (Normal) Range: 2.0-7.7 IM GRAN % 0.200 % (Normal) Range: 0.0-0.9 Comments: IG% - Immature Granulocytes (promyelocytes, myelocytes andmetamyelocytes) > 1% indicates that a LEFT SHIFT is Present. BASO% 1.6 % (Abnormal) Range: 0-1 EO% 4.2 % (Normal) Range: 0-5 MONO% 12.0 % (Abnormal) Range: 0-10 LY% 30.3 % (Normal) Range: 19-41 NEUT% 51.7 % (Normal) Range: 47-70 MPV 10.2 fL (Normal) Range: 6.2-12.0 PLT 224 K/mm3 (Normal) Range: 150-450 RDW SD 44.2 fL (Abnormal) Range: 35.1-43.9 RDW CV 13.2 % (Normal) Range: 11.6-14.6 MCHC 33.2 {g/gl} (Normal) Range: 32-36 MCH 31.6 pg (Normal) Range: 27.0-32.0 MCV 95.1 fL (Abnormal) Range: 80-94 HCT 38.8 % (Abnormal) Range: 40-54 HGB 12.9 g/dL (Abnormal) Range: 13.0-16.5 RBC 4.08 {M/mm3} (Abnormal) Range: 4.6-6.2 WBC 5.0 K/mm3 (Normal) Range: 4.4-11.0 58-Pjx-64975:11 Comprehensive Metabolic Profil Comments: [facility] [address] [place], [address] GAP 7 (Normal) Range: 5-15 CO2 25.0 mmol/L (Normal) Range: 21.0-32.0 CL 112 mmol/L (Abnormal) Range: 98-107 K 4.2 mmol/L (Normal) Range: 3.5-5.1 NA 144 mmol/L (Normal) Range: 136-145 T BILI 0.30 mg/dL (Normal) Range: 0.20-1.00 ALT 28 U/L (Normal) Range: 12-78 ALK P 85 U/L (Normal) Range: 50-136 AST 21 U/L (Normal) Range: 15-37 CA 9.0 mg/dL (Normal) Range: 8.5-10.1 A/G 1.1 {RATIO} (Normal) Range: 0.9-2.4 GLOB 3.5 g/dL (Normal) Range: 2.3-3.5 ALB 3.7 g/dL (Normal) Range: 3.4-5.0 T PROT 7.2 g/dL (Normal) Range: 6.4-8.2 BUN/CRE 16.4 {RATIO} (Normal) Range: 10-20 EST GFR - AA 107 mL/min (Normal) Comments: GFR Calc EST GFR 88 mL/min (Normal) Comments: Non- GFR Calc CREAT,SERUM 0.91 mg/dL (Normal) Range: 0.70-1.30 Comments: The validity of the calculated GFR AND GFRAA in patients over70 years has not been determined. Clinical correlation isessential. BUN 15 mg/dL (Normal) Range: 7-18 GLU 82 mg/dL (Normal) Range: 70-110 :11 Lipid Profile Comments: [facility] [address] [place], [address] VLDL 10 mg/dL (Normal) Range: 5-40 LDL 92 mg/dL (Normal) Range: 0-130 HDL 53 mg/dL (Normal) Comments: Reference Range HDL <40 mg/dL Low HDL Cholesterol HDL >or= 60 mg/dL High HDL Cholesterol TRIG 48 mg/dL (Normal) Comments: Serum Triglycerides Reference Interval Normal <150 mg/dL Borderline high 150 - 199 mg/dL High 200 - 499 mg/dL Very High > or = 500 mg/dL CHOL 155 mg/dL (Normal) Comments: <200 mg/dL Desirable 200-240 mg/dL Borderline >240 mg/dL High Risk :11 Phenobarbital Comments: Time Medication is to be Given? 0000[facility] [address] [place], [address] PHENOBARB 19.8 ug/mL (Normal) Range: 10.0-40.0 :11 Phenytoin (Dilantin) Level Comments: Time Medication is to be Given? 0000[facility] [address] [place], [address] PHENYTOIN 17.4 mL (Normal) Range: 10.0-20.0 :11 Vitamin D,25 Hydroxy Comments: [facility] [address] [place], [address] Vitamin D 25-OH 42.5 ng/mL (Normal) Comments: Vitamin D 25(OH) Status Range Deficiency <20 ng/mL (50nmol/L) Insuffciency 20 - 30 ng/mL (50 - 75 nmol/L) Sufficiency 30 - 100 ng/mL (75 - 250 nmol/L) Toxicity >100 ng/mL (>250 nmol/L) 04-Nov-20158:15 COLON BIOPSY (CHOOSE See Note (Normal) Comments: [facility] [address] [place], [address] SITE) Comments: Patient: CHELI NEUMANN : 1950 (64/M) Acct Num: [id number] Phys: Landon Werner Unit Num: [id number] Loc: LABSPEC Specimen: [id number] Received: 11/04/15 - 1547 Spec Type: C LAUREN BX TISSUES TISSUES: GROSS DESCRIPTION Received is one container labeled with the patient name and designated polyp transverse colon. The specimen consists of multiple irregula r fragments of light caballero soft tissue that in aggregate measure 0.4 x 0.4 x 0.1 cm. The specimen is totally submitted in one cassette. / CHRISTIN:desirae 05/01/16 TC:1 CPT: 34712 HEADER OPERATION: Colonoscopy with biopsy PRE-OP DIAGNOSIS: History of polyps TISSUE SUBMITTED: Polyp transverse colon, rule out adenoma MICROSCOPIC DESCRIPTION Slides are reviewed. MICROSCOPIC DIAGNOSIS Polyp trans verse colon, biopsy: Fragments of tubular adenoma. CHRISTIN:whit 11/06/15 Signed Tanner Carey 11/06/15 <signature on file> :13 Lipid Profile Comments: [facility] [address] [place], [address] VLDL 13 mg/dL (Normal) Range: 5-40 LDL 99 mg/dL (Normal) Range: 0-130 HDL 55 mg/dL (Normal) Comments: Reference Range HDL <40 mg/dL Low HDL Cholesterol HDL >or= 60 mg/dL High HDL Cholesterol TRIG 66 mg/dL (Normal) Comments: Serum Triglycerides Reference Interval Normal <150 mg/dL Borderline high 150 - 199 mg/dL High 200 - 499 mg/dL Very High > or = 500 mg/dL CHOL 167 mg/dL (Normal) Comments: <200 mg/dL Desirable 200-240 mg/dL Borderline >240 mg/dL High Risk :13 Phenobarbital Comments: Time Medication is to be Given? 2099[facility] [address] [place], [address] PHENOBARB 19.2 ug/mL (Normal) Range: 10.0-40.0 :13 Phenytoin (Dilantin) Level Comments: Time Medication is to be Given? 2099[facility] [address] [place], [address] PHENYTOIN 19.8 mL (Normal) Range: 10.0-20.0 :13 Vitamin D,25 Hydroxy Comments: [facility] [address] [place], [address] Vitamin D 25-OH 30.7 ng/mL (Normal) Comments: Vitamin D 25(OH) Status Range Deficiency <20 ng/mL (50nmol/L) Insuffciency 20 - 30 ng/mL (50 - 75 nmol/L) Sufficiency 30 - 100 ng/mL (75 - 250 nmol/L) Toxicity >100 ng/mL (>250 nmol/L); ADDENDA: non-emergent till apt :11 CBC W/Diff, Automated Comments: Test performed at:[facility] [address] [place] [address] ; will reivew at 02/17 appt Absolute Lymph 1.90 {X10_3/ul} (Normal) Range: 0.83-4.51 Absolute Neut 4.4 {X10_3/uL} (Normal) Range: 2.0-7.7 IM GRAN % 0.000 % (Normal) Range: 0.0-0.9 Comments: IG% - Immature Granulocytes (promyelocytes, myelocytes andmetamyelocytes) > 1% indicates that a LEFT SHIFT is Present. BASO% 1.4 % (Abnormal) Range: 0-1 EO% 2.5 % (Normal) Range: 0-5 MONO% 9.7 % (Normal) Range: 0-10 LY% 25.9 % (Normal) Range: 19-41 NEUT% 60.5 % (Normal) Range: 47-70 MPV 10.5 fL (Normal) Range: 6.2-12.0 PLT 264 K/mm3 (Normal) Range: 150-450 RDW SD 45.4 fL (Abnormal) Range: 35.1-43.9 RDW CV 13.5 % (Normal) Range: 11.6-14.6 MCHC 32.8 {g/gl} (Normal) Range: 32-36 MCH 31.4 pg (Normal) Range: 27.0-32.0 MCV 95.6 fL (Abnormal) Range: 80-94 HCT 39.0 % (Abnormal) Range: 40-54 HGB 12.8 g/dL (Abnormal) Range: 13.0-16.5 RBC 4.08 {M/mm3} (Abnormal) Range: 4.6-6.2 WBC 7.3 K/mm3 (Normal) Range: 4.4-11.0 31-Jan-20157:11 Comprehensive Metabolic Profil Comments: Test performed at:[facility] [address] [place], [place] [id number] GAP 6 (Normal) Range: 5-15 CO2 25.0 mmol/L (Normal) Range: 21.0-32.0 CL 108 mmol/L (Abnormal) Range: 98-107 K 4.0 mmol/L (Normal) Range: 3.5-5.1 NA 139 mmol/L (Normal) Range: 136-145 T BILI 0.30 mg/dL (Normal) Range: 0.20-1.00 ALT 27 U/L (Normal) Range: 12-78 ALK P 86 U/L (Normal) Range: 50-136 AST 21 U/L (Normal) Range: 15-37 CA 8.7 mg/dL (Normal) Range: 8.5-10.1 A/G 1.2 {RATIO} (Normal) Range: 0.9-2.4 GLOB 3.1 g/dL (Normal) Range: 2.7-4.2 ALB 3.7 g/dL (Normal) Range: 3.4-5.0 T PROT 6.8 g/dL (Normal) Range: 6.4-8.2 BUN/CRE 15.0 {RATIO} (Normal) Range: 10-20 EST GFR - AA 125 mL/min (Normal) EST GFR 103 mL/min (Normal) CREAT,SERUM 0.8 mg/dL (Normal) Range: 0.8-1.3 BUN 12 mg/dL (Normal) Range: 7-18 GLU 86 mg/dL (Normal) Range: 70-110 :11 Lipid Profile Comments: Test performed at:[facility] [address] [place] [address] VLDL 12 mg/dL (Normal) Range: 5-40 LDL 96 mg/dL (Normal) Range: 0-130 HDL 47 mg/dL (Normal) Comments: Reference Range HDL <40 mg/dL Low HDL Cholesterol HDL >or= 60 mg/dL High HDL Cholesterol TRIG 60 mg/dL (Normal) Range: 0-199 Comments: Serum Triglycerides Reference Interval Normal <150 mg/dL Borderline high 150 - 199 mg/dL High 200 - 499 mg/dL Very High > or = 500 mg/dL CHOL 155 mg/dL (Normal) Comments: <200 mg/dL Desirable 200-240 mg/dL Borderline >240 mg/dL High Risk :11 Phenobarbital Comments: Time Medication is to be Given? ??2000Test performed at:[facility] [address] ??[place], [place] ??[address] PHENOBARB 19.4 ug/mL (Normal) Range: 10.0-40.0 :11 Phenytoin (Dilantin) Level Comments: Time Medication is to be Given? 2000Test performed at:[facility] [address] [place] [address] PHENYTOIN 18.1 ug/mL (Normal) Range: 10.0-20.0 :11 PSA,Total - Annual Screen Comments: Test performed at:[facility] [address] [place] [address] PSA,TOT SCREEN 2.27 ng/mL (Normal) Range: 0.00-4.00 Comments: This test was performed using the TPSA assay method for [employer] chemistry system. Values obtained with differentassay methods cannot be used interchangably.When changing PSA assays in the course of monitoring apatient, additional sequential testing should be carriedout to confirm baseline values. :11 Vitamin D,25 Hydroxy Comments: Test performed at:[facility] [address] [facility] [place] [address] Vitamin D 25-OH 34.3 ng/mL (Normal) Comments: Vitamin D 25(OH) Status Range Deficiency <20 ng/mL (50nmol/L) Insuffciency 20 - 30 ng/mL (50 - 75 nmol/L) Sufficiency 30 - 100 ng/mL (75 - 250 nmol/L) Toxicity >100 ng/mL (>250 nmol/L) :04 Phenobarbital Comments: Has pt arrived? YTime Medication is to be Given? 0000Test performed at:[facility] [address] [place] [address] PHENOBARB 18.5 ug/mL (Normal) Range: 10.0-40.0 :04 Phenytoin (Dilantin) Level Comments: Has pt arrived? YTime Medication is to be Given? 0000Test performed at:[facility] [address] [place] [address] PHENYTOIN 16.3 ug/mL (Normal) Range: 10.0-20.0 3-Zrn-[id number]:28 Phenytoin (Dilantin) Level Comments: CRITICAL VALUE REPEATED AND VERIFIED. CALLED TO Khurram DICKSON09/06/14 Christin Moya.RESULTS READ BACK BY SAME.Time Medication is to be Given? 1000Test performed at:[facility] [address] [place] [address] PHENYTOIN 22.4 ug/mL (Abnormal) Range: 10.0-20.0 :19 CBC W/Diff, Automated Comments: Has pt arrived? YTest performed at:[facility] [address] ??[place], [place] ??[address] Absolute Lymph 1.89 {X10_3/ul} (Normal) Range: 0.83-4.51 Absolute Neut 3.2 {X10_3/uL} (Normal) Range: 2.0-7.7 IM GRAN % 0.000 % (Normal) Range: 0.0-0.9 Comments: IG% - Immature Granulocytes (promyelocytes, myelocytes andmetamyelocytes) > 1% indicates that a LEFT SHIFT is Present. BASO% 1.5 % (Abnormal) Range: 0-1 EO% 3.3 % (Normal) Range: 0-5 MONO% 10.7 % (Abnormal) Range: 0-10 LY% 31.1 % (Normal) Range: 19-41 NEUT% 53.4 % (Normal) Range: 47-70 MPV 10.1 fL (Normal) Range: 6.2-12.0 PLT 264 K/mm3 (Normal) Range: 150-450 RDW SD 45.6 fL (Abnormal) Range: 35.1-43.9 RDW CV 13.1 % (Normal) Range: 11.6-14.6 MCHC 33.4 {g/gl} (Normal) Range: 32-36 MCH 31.6 pg (Normal) Range: 27.0-32.0 MCV 94.6 fL (Abnormal) Range: 80-94 HCT 38.9 % (Abnormal) Range: 40-54 HGB 13.0 g/dL (Normal) Range: 13.0-16.5 RBC 4.11 {M/mm3} (Abnormal) Range: 4.6-6.2 WBC 6.1 K/mm3 (Normal) Range: 4.4-11.0 06-Sep-20147:19 Comprehensive Metabolic Profil Comments: Has pt arrived? YTest performed at:[facility] [address] [facility] [place] [address] GAP 5 (Normal) Range: 5-15 CO2 27.0 mmol/L (Normal) Range: 21.0-32.0 CL 106 mmol/L (Normal) Range: 98-107 K 4.0 mmol/L (Normal) Range: 3.5-5.1 NA 138 mmol/L (Normal) Range: 136-145 T BILI 0.30 mg/dL (Normal) Range: 0.00-4.00 ALT 30 U/L (Normal) Range: 12-78 ALK P 89 U/L (Normal) Range: 50-136 AST 20 U/L (Normal) Range: 15-37 CA 8.7 mg/dL (Normal) Range: 8.5-10.1 A/G 1.1 {RATIO} (Normal) Range: 0.9-2.4 GLOB 3.4 g/dL (Normal) Range: 2.7-4.2 ALB 3.9 g/dL (Normal) Range: 3.4-5.0 T PROT 7.3 g/dL (Normal) Range: 6.4-8.2 BUN/CRE 11.0 {RATIO} (Normal) Range: 10-20 EST GFR - AA 97 mL/min (Normal) EST GFR 80 mL/min (Normal) CREAT,SERUM 1.0 mg/dL (Normal) Range: 0.8-1.3 BUN 11 mg/dL (Normal) Range: 7-18 GLU 93 mg/dL (Normal) Range: 70-110 :19 Lipid Profile Comments: Has pt arrived? YTest performed at:[facility] [address] [place] [address] VLDL 12 mg/dL (Normal) Range: 5-40 LDL 96 mg/dL (Normal) Range: 0-130 HDL 53 mg/dL (Normal) Comments: Reference Range HDL <40 mg/dL Low HDL Cholesterol HDL >or= 60 mg/dL High HDL Cholesterol TRIG 61 mg/dL (Normal) Range: 0-199 Comments: Serum Triglycerides Reference Interval Normal <150 mg/dL Borderline high 150 - 199 mg/dL High 200 - 499 mg/dL Very High > or = 500 mg/dL CHOL 161 mg/dL (Normal) Comments: <200 mg/dL Desirable 200-240 mg/dL Borderline >240 mg/dL High Risk :19 Vitamin D,25 Hydroxy Comments: Has pt arrived? YTest performed at:[facility] [address] [facility] [place] [address] Vitamin D 25-OH 31.9 ng/mL (Normal) Comments: Vitamin D 25(OH) Status Range Deficiency <20 ng/mL (50nmol/L) Insuffciency 20 - 30 ng/mL (50 - 75 nmol/L) Sufficiency 30 - 100 ng/mL (75 - 250 nmol/L) Toxicity >100 ng/mL (>250 nmol/L) 9-Ubv-[id number]:46 Aerobic Bacterial Culture Comments: PATIENT NOT FASTINGPERFORMED BY: [facility] [id number] [facility] [id number] Result 1 Mixed skin olivia (Normal) Aerobic Bacterial Culture Final report (Normal) :07 DRUG ASSAY-PHENOBARBITOL Comments: PATIENT NOT FASTINGPERFORMED BY: [facility]Saint [facility] CenterTiferq7433 [facility] [id number] Information: [id number] DRAW FEE ([id number]) Phenobarbital, Serum 15 ug/mL (Normal) Range: 15-40 Comments: Detection Limit = 2 <2 indicates None Detected :33 DRUG ASSAY-PHENOBARBITOL Comments: PATIENT NOT FASTINGPERFORMED BY: [facility]Co[address] [id number] Information: [id number] ([id number]) Pentobarbital None Detected ug/mL (Normal) Range: 1-5 Comments: Detection Limit = 1 :16 CBCD Comments: will review ay 03/15 appt. ALC 2.07 {X10_3/ul} (Normal) Range: 0.83-4.51 ANC 3.6 {X10_3/uL} (Normal) Range: 2.0-7.7 IG% 0.100 % (Normal) Range: 0.0-0.9 Comments: IG% - Immature Granulocytes (promyelocytes, myelocytes andmetamyelocytes) > 1% indicates that a LEFT SHIFT is Present. B% 1.0 % (Normal) Range: 0-1 E% 3.6 % (Normal) Range: 0-5 M% 13.0 % (Abnormal) Range: 0-10 L% 30.2 % (Normal) Range: 19-41 N% 52.1 % (Normal) Range: 47-70 MPV 10.2 fL (Normal) Range: 6.2-12.0 PLT 262 K/mm3 (Normal) Range: 150-450 RDWSD 45.6 fL (Abnormal) Range: 35.1-43.9 RDWCV 13.3 % (Normal) Range: 11.6-14.6 MCHC 33.8 {g/gl} (Normal) Range: 32-36 MCH 31.3 pg (Normal) Range: 27.0-32.0 MCV 92.8 fL (Normal) Range: 80-94 HCT 38.8 % (Abnormal) Range: 40-54 HGB 13.1 g/dL (Normal) Range: 13.0-16.5 RBC 4.18 {M/mm3} (Abnormal) Range: 4.6-6.2 WBC 6.9 K/mm3 (Normal) Range: 4.4-11.0 :16 CMP GAP 9 (Normal) Range: 5-15 CO2 24.0 mmol/L (Normal) Range: 21.0-32.0 CL 108 mmol/L (Abnormal) Range: 98-107 K 4.1 mmol/L (Normal) Range: 3.5-5.1 NA 141 mmol/L (Normal) Range: 136-145 BIT 0.20 mg/dL (Normal) Range: 0.00-1.00 ALT 31 U/L (Normal) Range: 12-78 ALK 92 U/L (Normal) Range: 45-117 AST 21 U/L (Normal) Range: 15-37 CA 9.0 mg/dL (Normal) Range: 8.5-10.1 AG 1.2 {RATIO} (Normal) Range: 0.9-2.4 GLOB 3.2 g/dL (Normal) Range: 2.7-4.2 ALB 3.7 g/dL (Normal) Range: 3.4-5.0 TPROT 6.9 g/dL (Normal) Range: 6.4-8.2 BC 20.0 {RATIO} (Normal) Range: 10-20 GFRAA 125 mL/min (Normal) GFR 103 mL/min (Normal) CREAT 0.8 mg/dL (Normal) Range: 0.8-1.3 BUN 16 mg/dL (Normal) Range: 7-18 GLU 89 mg/dL (Normal) Range: 70-110 :16 DIL 19.8 ug/mL (Normal) Comments: Time Medication is to be Given? 0800 Range: 10.0-20.0 :16 LIPID VLDL 11 mg/dL (Normal) Range: 5-40 LDL 102 mg/dL (Normal) Range: 0-130 HDL 45 mg/dL (Normal) Comments: Reference RangeHDL <40 mg/dL Low HDL CholesterolHDL >or= 60 mg/dL High HDL Cholesterol TRIG 55 mg/dL (Normal) Range: 0-199 Comments: Serum Triglycerides Reference IntervalNormal <150 mg/dLBorderline high 150 - 199 mg/dLHigh 200 - 499 mg/ dLVery High > or = 500 mg/dL CHOL 158 mg/dL (Normal) Comments: <200 mg/dL Nmmqpnwli732-287 mg/dL Borderline>240 mg/dL High Risk :16 PSA 1.08 ng/mL (Normal) Range: 0.00-4.00 Comments: This test was performed using the TPSA assay method for [employer] chemistry system. Values obtained with differentassay methods cannot be used interchangably.When changing PSA assays in the course of monitoring apatient, additional sequential testing should be carriedout to confirm baseline values. :16 VITD 47.1 mg/mL (Normal) Comments: Vitamin D 25(OH) Status RangeDeficiency <20 ng/mL (50nmol/L)Insuffciency 20 - 30 ng/mL (50 - 75 nmol/L)Sufficiency 30 - 100 ng/mL (75 - 250 nmol/L)Toxicity >100 ng/mL (>250 nmol/L) :33 Rapid Flu (54257 x 2) Comments: neg Influenza A Ag Negative A and B (Normal) :18 CBCD ANC 3.3 {X10_3/uL} (Normal) Range: 2.0-7.7 IG% 0.200 % (Normal) Range: 0.0-0.9 Comments: IG% - Immature Granulocytes (promyelocytes, myelocytes andmetamyelocytes) > 1% indicates that a LEFT SHIFT is Present. B% 1.6 % (Abnormal) Range: 0-1 E% 4.1 % (Normal) Range: 0-5 M% 11.0 % (Abnormal) Range: 0-10 L% 29.8 % (Normal) Range: 19-41 N% 53.3 % (Normal) Range: 47-70 MPV 10.0 fL (Normal) Range: 6.2-12.0 PLT 231 K/mm3 (Normal) Range: 150-450 RDWCV 13.0 % (Normal) Range: 11.6-14.6 RDWSD 43.2 fL (Normal) Range: 35.1-43.9 MCHC 33.5 {g/gl} (Normal) Range: 32-36 MCH 31.0 pg (Normal) Range: 27.0-32.0 MCV 92.7 fL (Normal) Range: 80-94 HCT 39.1 % (Abnormal) Range: 40-54 HGB 13.1 g/dL (Normal) Range: 13.0-16.5 RBC 4.22 {M/mm3} (Abnormal) Range: 4.6-6.2 WBC 6.1 K/mm3 (Normal) Range: 4.4-11.0 :18 CMP GAP 7 (Normal) Range: 5-15 CO2 27.0 mmol/L (Normal) Range: 21.0-32.0 CL 107 mmol/L (Normal) Range: 98-107 K 4.7 mmol/L (Normal) Range: 3.5-5.1 NA 141 mmol/L (Normal) Range: 136-145 BIT 0.30 mg/dL (Normal) Range: 0.00-1.00 ALT 27 U/L (Normal) Range: 12-78 ALK 81 U/L (Normal) Range: 50-136 AST 17 U/L (Normal) Range: 15-37 CA 9.1 mg/dL (Normal) Range: 8.5-10.1 AG 1.2 {RATIO} (Normal) Range: 0.9-2.4 GLOB 3.2 g/dL (Normal) Range: 2.7-4.2 ALB 3.8 g/dL (Normal) Range: 3.4-5.0 TPROT 7.0 g/dL (Normal) Range: 6.4-8.2 BC 15.0 {RATIO} (Normal) Range: 10-20 GFRAA 126 mL/min (Normal) GFR 104 mL/min (Normal) CREAT 0.8 mg/dL (Normal) Range: 0.8-1.3 BUN 12 mg/dL (Normal) Range: 7-18 GLU 83 mg/dL (Normal) Range: 70-110 :18 DIL 17.8 ug/mL (Normal) Comments: Time Medication is to be Given? 0600 Range: 10.0-20.0 :18 LIPID LDL 110 mg/dL (Normal) Range: 0-130 VLDL 12 mg/dL (Normal) Range: 5-40 HDL 47 mg/dL (Normal) Comments: Reference RangeHDL <40 mg/dL Low HDL CholesterolHDL >or= 60 mg/dL High HDL Cholesterol CHOL 169 mg/dL (Normal) Comments: <200 mg/dL Vpztspoul794-843 mg/dL Borderline>240 mg/dL High Risk TRIG 58 mg/dL (Normal) Range: 0-199 Comments: Serum Triglycerides Reference IntervalNormal <150 mg/dLBorderline high 150 - 199 mg/dLHigh 200 - 499 mg/ dLVery High > or = 500 mg/dL :18 TSH 0.97 {uIU/mL} (Normal) Range: 0.358-3.74 :18 VITD 46.4 mg/mL (Normal) Comments: Vitamin D 25(OH) Status RangeDeficiency <20 ng/mL (50nmol/L)Insuffciency 20 - 30 ng/mL (50 - 75 nmol/L)Sufficiency 30 - 100 ng/mL (75 - 250 nmol/L)Toxicity >100 ng/mL (>250 nmol/L) [id number]:13 DEXA BONE DENSITY STUDY (HP) Radiology Report See Note (Normal) Comments: PROCEDURE: DUAL ENERGY X-RAY ABSORPTIOMETRY / DXA REASON FOR EXAM: Male, 61 years old. Osteoporosis. TECHNIQUE: Bone Mineral Density (BMD) measurements of lumbar spine andbilateral hips were obtai elmer. COMPARISON: Comparison is made with prior study dated July 07, 2010. FINDINGS: Lumbar Spine (L1-L4): g/cm2 (1.007) / T-score (-1.8) / Z-score (-1.4) Left Femur Total: g/cm2 (0.703) / T -score (-2.8) / Z-score (-2.3)Left Femoral Neck: g/cm2 (0.694) / T-score (-2.9) / Z-score (-1.9)Right Femur Total: g/cm2 (0.689) / T-score (-2.9) / Z-score (-2.4)Right Femoral Neck: g/cm2 ( 0.710) / T-score (-2.8) / Z-score (-1.8) The T-Scores on the most recent prior examination were: Lumbar Spine (L1-L4): which represents a worsening of 1.4%.Left Femur Total: which represen ts a worsening of 8.3%.Right Femur Total: which represents a worsening of 1.9%. IMPRESSION:The patient is considered osteoporotic, as outlined above, according [facility] (WHO) cri teria. Fracture risk is high. Reference Information:The T-score is the number of standard deviations above or below thestandard which is normal for young adults at their peak bone mineraldensity. The W orld Health Organization (WHO) interprets the T-scores asfollows: Above - 1 Normal bone densityBetween -1 and -2.5 OsteopeniaEqual to / or below -2.5 Osteoporosis As a practical clinical gu ideline, osteopenia may be graded as follows:Mild -1 through -1.5Moderate -1.6 through -2.0Severe -2.1 through -2.4 The Z-score is the number of standard deviations above or below age-matchedcontrols . A Z-score of less than -1.5 would be considered abnormal. References:1. NIH Osteoporosis and Related Bone Diseases http://www.osteo.org2. International Society for Clinical Densitometry http://www.i scd.org3. National Osteoporosis Foundation http://www.nof.org Signed:Charbel Cunha M.D.September 26, 2012 at 4:13:45 PM [id number] Signed GP/GP If you are the referring physician and would like to consult with theradiologist who provided this interpretation, please contact Connie Gutiérrez at [phone]. If this radiologist is unavailable, youwill be directed to [facility] radiologist to assist. If you are a patient with a question regarding this report, pleasecontactyour referring physician directly. Professional Interpretation Provided By: [employer], Phone , These documents contain legally protected and confidential healthinformation intended only for the use of the individual or entity namedabove. If you are not the intended recipien t, you are hereby notifiedthatany disclosure, copying, distribution, or other use of these documents isstrictly prohibited. If you have received this information in error,pleasenotify the sender immedia tely and arrange for the return or destructionofthese documents. Dictated on 09/26/12 1528 by Nicole GORDILLO,Rozinaranscribed on 09/26/12 1632 by ITS IMPORTSign by Charbel Cunha MD on 09/26/12 1633 Sign by: Charbel Cunha MD [id number] CBCMD RBCM NORM C+C {NORMAL} (Normal) PE ADEQUATE (Normal) BAS 1 % (Normal) Range: 0-1 EOS 5 % (Normal) Range: 0-5 MON 9 % (Normal) Range: 0-10 BAND 3 % (Normal) Range: 0-5 LYMPH 24 % (Normal) Range: 19-41 PMN 58 % (Normal) Range: 47-70 THOMAS 100 (Normal) ANC 3.2 3/uL (Normal) Range: 2.0-7.7 MPV 10.4 fL (Normal) Range: 6.2-12.0 PLT 259 K/mm3 (Normal) Range: 150-450 RDWSD 45.6 fL (Abnormal) Range: 35.1-43.9 RDWCV 13.3 % (Normal) Range: 11.6-14.6 MCHC 33.2 g/dL (Normal) Range: 32-36 MCH 31.1 pg (Normal) Range: 27.0-32.0 MCV 93.7 fL (Normal) Range: 80-94 HCT 41.6 % (Normal) Range: 40-54 HGB 13.8 g/dL (Normal) Range: 13.0-16.5 RBC 4.44 {M/mm3} (Abnormal) Range: 4.6-6.2 WBC 6.4 {k/mm3} (Normal) Range: 4.4-11.0 :07 CMP GAP 9 (Normal) Range: 5-15 CO2 25.0 mmol/L (Normal) Range: 21.0-32.0 CL 103 mmol/L (Normal) Range: 98-107 K 4.2 mmol/L (Normal) Range: 3.5-5.1 NA 137 mmol/L (Normal) Range: 136-145 BIT 0.30 mg/dL (Normal) Range: 0.00-1.00 ALK 85 U/L (Normal) Range: 50-136 ALT 27 U/L (Normal) Range: 12-78 AST 20 U/L (Normal) Range: 15-37 CA 8.9 mg/dL (Normal) Range: 8.5-10.1 AG 1.1 {RATIO} (Normal) Range: 0.9-2.4 ALB 3.9 g/dL (Normal) Range: 3.4-5.0 GLOB 3.5 g/dL (Normal) Range: 2.7-4.2 TPROT 7.4 g/dL (Normal) Range: 6.4-8.2 BC 14.4 {RATIO} (Normal) Range: 10-20 GFRAA 110 mL/min (Normal) CREAT 0.9 mg/dL (Normal) Range: 0.8-1.3 GFR 91 mL/min (Normal) BUN 13 mg/dL (Normal) Range: 7-18 GLU 95 mg/dL (Normal) Range: 70-110 :07 DIL 17.5 ug/mL (Normal) Range: 10.0-20.0 :07 LIPID LDL 118 mg/dL (Normal) Range: 0-130 VLDL 13 mg/dL (Normal) Range: 5-40 CHOL 181 mg/dL (Normal) Comments: <200 mg/dL Desirable 200-240 mg/dL Borderline >240 mg/dL High Risk HDL 50 mg/dL (Normal) Comments: Reference Range HDL <40 mg/dL Low HDL Cholesterol HDL >or= 60 mg/dL High HDL Cholesterol TRIG 66 mg/dL (Normal) Comments: Serum Triglycerides Reference Interval Normal <150 mg/dL Borderline high 150 - 199 mg/dL High 200 - 499 mg/dL Very High > or = 500 mg/dL :07 PHEN 18.4 ug/mL (Normal) Range: 10.0-40.0 :07 PSA 1.36 ng/mL (Normal) Range: 0.00-4.00 :07 VITD 40.0 ng/mL (Normal) Range: 30.0-100.0 Comments: Vitamin D deficiency has been defined by the [place] [employer] and an Endocrine Society practice guideline as alevel of serum 25-OH vitamin D less than 20 ng/mL (1,2).The Endocrine Society went on to further define vitamin Dinsufficiency as a level between 21 and 29 ng/mL (2).1. IOM ([place] [employer]). 2010. Dietary reference intakes for calcium and D. Heart [place]: The National Academies Press.2. Mely MF, Jus CASTILLO, Sophie GUARDADO, et al. Evaluation, treatment, and prevention of vitamin D deficiency: an Endocrine Society clinical practice guideline. JCEM. 2010; 96(7): 1911-30.Performed at: [facility] [id number] Director: Keith Nance PhD, Phone: [phone] :[phone] DIL 12.4 ug/mL (Normal) Range: 10.0-20.0 :11 PHEN 17.0 ug/mL (Normal) Range: 10.0-40.0 :12 CBCMD RBCM NORM C+C {NORMAL} (Normal) PE ADEQUATE (Normal) EOS 4 % (Normal) Range: 0-5 MON 6 % (Normal) Range: 0-10 LYMPH 38 % (Normal) Range: 19-41 BAND 1 % (Normal) Range: 0-5 PMN 51 % (Normal) Range: 47-70 THOMAS 100 (Normal) ANC 4.5 3/uL (Normal) Range: 2.0-7.7 PLT 249 K/mm3 (Normal) Range: 150-450 RDW 13.3 % (Normal) Range: 11.6-14.6 MCHC 34.3 g/dL (Normal) Range: 32-36 MCH 32.1 pg (Abnormal) Range: 27.0-32.0 MCV 93.7 fL (Normal) Range: 80-94 HCT 38.9 % (Abnormal) Range: 40-54 HGB 13.4 g/dL (Abnormal) Range: 14.0-18.0 RBC 4.16 {M/mm3} (Abnormal) Range: 4.6-6.2 WBC 7.1 K/mm3 (Normal) Range: 4.4-11.0 :12 CMP GAP 10 (Normal) Range: 5-15 CO2 25.0 mmol/L (Normal) Range: 21.0-32.0 CL 106 mmol/L (Normal) Range: 98-107 K 4.3 mmol/L (Normal) Range: 3.5-5.1 NA 141 mmol/L (Normal) Range: 136-145 BIT 0.30 mg/dL (Normal) Range: 0.00-1.00 ALT 30 U/L (Normal) Range: 12-78 ALK 78 U/L (Normal) Range: 50-136 AST 20 U/L (Normal) Range: 15-37 CA 9.1 mg/dL (Normal) Range: 8.5-10.1 AG 1.2 {RATIO} (Normal) Range: 0.9-2.4 GLOB 3.3 g/dL (Normal) Range: 2.7-4.2 ALB 3.9 g/dL (Normal) Range: 3.4-5.0 TPROT 7.2 g/dL (Normal) Range: 6.4-8.2 BC 16.7 {RATIO} (Normal) Range: 10-20 GFRAA 110 mL/min (Normal) GFR 91 mL/min (Normal) CREAT 0.9 mg/dL (Normal) Range: 0.8-1.3 BUN 15 mg/dL (Normal) Range: 7-18 GLU 83 mg/dL (Normal) Range: 70-110 :12 DIL 12.5 ug/mL (Normal) Range: 10.0-20.0 :12 VITD 37.3 ng/mL (Normal) Range: 30.0-100.0 Comments: Vitamin D deficiency has been defined by the [place] [employer] and an Endocrine Society practice guideline as alevel of serum 25-OH vitamin D less than 20 ng/mL (1,2).The Endocrine Society went on to further define vitamin Dinsufficiency as a level between 21 and 29 ng/mL (2).1. IOM ([place] [employer] [place]). 2010. Dietary reference intakes for calcium and D. Heart [place]: The National Academies Press.2. Mely MF, Jus CASTILLO, Sophie GUARDADO, et al. Evaluation, treatment, and prevention of vitamin D deficiency: an Endocrine Society clinical practice guideline. JCEM. 2010; 96(7): 1911-30.Performed at: [address] [id number] Director: Jacquelyn Charles MD, Phone: [phone] 22-Dus-554973:28 LOWER EXT.JOINT ONLY (ROUTINE) Radiology Report See Note (Normal) Comments: PROCEDURE: MRI RIGHT MIDFOOT REASON FOR EXAM: Male, 61 years old. Lump on the bottom of right footx6 mos.. Not painful and no real change of size. TECHNIQUE: Standardized fat and water weighted p ulse sequences wereobtained in all 3 orthogonal planes. Skin markers were placed in theplantar aspect of foot COMPARISON: None. FINDINGS:Normal talonavicular articulation. Normal calcaneocuboid deanna culation.Normal navicular-cuneiform articulations. Normal intercuneiformarticulations. Normal first tarsometatarsal articulation. Normal Lisfranc ligament. Normal second and third tarsometatarsal deanna culations. Normal cuboidfourth and cuboid fifth tarsometatarsal articulation. Normal first through fifth metatarsi. Normal tibialis anterior tendon. Normal extensor hallucis longus tendon.Normal exten sor digitorum longus tendons. Normal peroneus longus tendon and distal insertion. Normal peroneusbrevistendon and distal insertion. Normal intrinsic muscles of the mid and forefoot region. Normal exte nsordigitorum brevis muscle. There is a plantar fibroma involving the central cord of plantar fasciameasuring approximately 10 by 5 x 7 mm on AP, transverse and verticaldiameter (sagittal T1 series 4 im age 9). 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 Signed:Tomas Go M.D.December 24, 2011 at 8:26:04 PM ODALYSTEleccosme anthony Signed DAVIDE/DAVIDE Professional Interpretation Provided By: [facility], , To consult with a radiologist regarding this report, please call our 2 [id number] line @ Dictated on 12/24/111334 by Tomas Go MDTranscribed on 12/24/112029 by ITS IMPORTSign by Tomas Go MD on 12/24/112030 Sign by: Tomas Go MD :08 CBCD,SMEAR DIFF RED CELL MORPH SeeNote {NORMAL} (Normal) Comments: Result: NORM C+C PLT EST SeeNote (Normal) Comments: Result: ADEQUATE EOS 2 % (Normal) Range: 0-5 MONOCYTE 1 % (Normal) Range: 0-10 LYMPH 26 % (Normal) Range: 19-41 BAND 1 % (Normal) Range: 0-5 SEGS 70 % (Normal) Range: 47-70 CELLS COUNTED 100 (Normal) ABSOLUTE NEUT 4.3 3/uL (Normal) Range: 2.0-7.7 PLT 244 K/mm3 (Normal) Range: 150-450 RDW 13.6 % (Normal) Range: 11.6-14.6 MCHC 34.5 g/dL (Normal) Range: 32-36 MCH 32.2 pg (Abnormal) Range: 27.0-32.0 MCV 93.3 fL (Normal) Range: 80-94 HCT 41.0 % (Normal) Range: 40-54 HGB 14.1 g/dL (Normal) Range: 14.0-18.0 RBC 4.39 {M/mm3} (Abnormal) Range: 4.6-6.2 WBC 6.1 K/mm3 (Normal) Range: 4.4-11.0 :08 COMP METABOLIC GAP 7 (Normal) Range: 5-15 CO2 26.0 mmol/L (Normal) Range: 21.0-32.0 CL 107 mmol/L (Normal) Range: 98-107 K 4.1 mmol/L (Normal) Range: 3.5-5.1 NA 140 mmol/L (Normal) Range: 136-145 T BILI 0.30 mg/dL (Normal) Range: 0.00-1.00 ALT 30 U/L (Normal) Range: 12-78 ALK P 76 U/L (Normal) Range: 50-136 AST 21 U/L (Normal) Range: 15-37 CA 9.2 mg/dL (Normal) Range: 8.5-10.1 A/G 1.2 {RATIO} (Normal) Range: 0.9-2.4 GLOB 3.5 g/dL (Normal) Range: 2.7-4.2 ALB 4.1 g/dL (Normal) Range: 3.4-5.0 T PROT 7.6 g/dL (Normal) Range: 6.4-8.2 BUN/CRE 16.7 {RATIO} (Normal) Range: 10-20 EST GFR - AA 110 mL/min (Normal) EST GFR 91 mL/min (Normal) CREAT,SERUM 0.9 mg/dL (Normal) Range: 0.8-1.3 BUN 15 mg/dL (Normal) Range: 7-18 GLU 85 mg/dL (Normal) Range: 70-110 :08 LIPID LDL 126 mg/dL (Normal) Range: 0-130 VLDL 14 mg/dL (Normal) Range: 5-40 HDL 50 mg/dL (Normal) Comments: Reference Range HDL <40 mg/dL Low HDL Cholesterol HDL >or= 60 mg/dL High HDL Cholesterol TRIG 71 mg/dL (Normal) Comments: Serum Triglycerides Reference Interval Normal <150 mg/dL Borderline high 150 - 199 mg/dL High 200 - 499 mg/dL Very High > or = 500 mg/dL CHOL 190 mg/dL (Normal) Comments: <200 mg/dL Desirable 200-240 mg/dL Borderline >240 mg/dL High Risk :08 PHENYTOIN 18.1 ug/mL (Normal) Range: 10.0-20.0 :08 PSA, SCREEN 0.8 ng/mL (Normal) Range: 0.0-4.0 :08 TEST FR [id number] 5.0 pg/mL (Abnormal) Range: 6.6-18.1 Comments: Performed at: - [facility] [id number] [place], [place] [id number] Director: Jacquelyn Charles MD, Phone: [phone] at: [facility] [id number] Director: Joseph Sevilla MD, Phone: [phone] :[phone] TSH 0.98 {uIU/mL} (Normal) Range: 0.358-3.74 :08 VIT D,25 91340 30.9 ng/mL (Abnormal) Range: 32.0-100.0 Comments: Effective July 19, 2011 Vitamin D, 25-Hydroxy reference intervals will be changing to 30-100. .Recent studies consider the lower li alta of 32.0 ng/mL to be athreshold for optimal health.Horace ROBLES. J Nutr. 2004;135(2):317-22. 8-Iby-203950:57 DEXA BONE DENSITY STUDY (HP) Radiology Report See Note (Normal) Comments: Exam Number: [id number] LINICAL:This is a 59-year-old male patient with history of osteopenia. EXAMINATION:DUAL ENERGY X-RAY ABSORPTIOMETRY / DEXA. TECHNIQUE:Bone Density Measurements (BMD) of lumbar spi ne and bilateral hips were obtained using a [employer] scanner.. COMPARISON:Comparison is made with prior examination dated December 26, 2001. FINDINGS: Lumbar Spine (L1-L4): g/cm2 (1.021) / T-score (-1.7) / Z-score (-1.7)Left Femur Total: g/cm2 (0.774) / T- score (-2.3) / Z-score (-2.0)Right Femur Total: g/cm2 (0.734) / T-score (- 2.6) / Z-score (-2.3) Additional Abnormal T-Sc ores: None. Since prior examination, there has been a loss of 2.7% in the bone density. IMPRESSION:The patient is considered osteopenic, as outlined above, according to World Health Organization (WHO) criteria. Fracture risk is moderate. Reference Information:The T-score is the number of standard deviations above or below the standard which is normal for young adults at their peak bone mineral densi ty. The World Health Organization (WHO) interprets the T-scores as follows: Above -1 Normal bone densityBetween -1 and -2.5 OsteopeniaEqual to / or below -2.5 Osteoporosis As a practical c linical guideline, osteopenia may be graded as follows:Mild -1 through -1.5Moderate -1.6 through -2.0Severe -2.1 through -2.4 The Z-score is the number of standard deviations above or b elow age-matched controls. A Z-score of less than -1.5 would be considered abnormal. References:1. NIH Osteoporosis and Related Bone Diseases http://www.osteo.org2. International Society for Clinical Densitometry http://www.iscd.org3. National Osteoporosis Foundation http://www.nof.org Reported By: CHARBEL CUNHA :52 CHEST, PA AND LATERAL (MT) Radiology Report See Note (Normal) Comments: Exam Number: [id number] LINICAL:59-year-old male complains of shortness of breath. X-RAY EXAMINATION - CHEST TECHNIQUE:PA and lateral views of the chest. COMPARISON:04/22/2005. FINDINGS: There are scatter ed granulomatous calcifications in the lungs. There is no demonstrated pleural abnormality. The heart is normal in size and morphology. Normal mediastinum and hilar regions. Normal visualized pulmonary arteries. Normal visualized aortic arch and descending thoracic aorta. Normal osseous structures. IMPRESSION:Old granulomatous disease.No pulmonary infiltrates. Reported By: KALRA DUNHAM DR. PHENOBARB 15.9 ug/mL (Normal) Range: 10.0-40.0 :35 PHENYTOIN 13.5 ug/mL (Normal) Range: 10.0-20.0 :35 PHOS 3.7 mg/dL (Normal) Range: 2.5-4.9 :35 :35 PROT.[id number] GAMMA GLOB,U 19.7 % (Normal) M-SPIKE,U SeeNote % (Normal) Comments: Result: Not Observed NOTE Comment (Normal) Comments: Protein electrophoresis scan will follow via computer,mail, or programming engineer delivery. ALBUMIN,UR 26.3 % (Normal) SHHNC-5-SRFE,U 2.7 % (Normal) MGJEA-4-HRYT,U 12.9 % (Normal) BETA GLOB,U 38.4 % (Normal) PROTEIN,UR 6.2 mg/dL (Normal) Range: 0.0-15.0 :35 PTH,Intact 42 pg/mL (Normal) Range: 14-72 :35 SPE [id number] A/G RATIO 1.4 (Normal) Range: 0.7-2.0 INTERPRETATION Comment (Normal) Comments: The SPE pattern appears essentially unremarkable. Evidenceof monoclonal protein is not apparent.Protein electrophoresis scan will follow via computer,mail, or programming engineer delivery. ALBUMIN 3.9 g/dL (Normal) Range: 3.2-5.6 ALPHA-1 GLOBUL 0.3 g/dL (Normal) Range: 0.1-0.4 ALPHA-2 GLOBUL 0.7 g/dL (Normal) Range: 0.4-1.2 BETA GLOBULIN 0.8 g/dL (Normal) Range: 0.6-1.3 GAMMA GLOBULIN 0.9 g/dL (Normal) Range: 0.5-1.6 GLOBULIN, TOTAL 2.7 g/dL (Normal) Range: 2.0-4.5 M-SPIKE SeeNote g/dL (Normal) Comments: Result: Not Observed PROTEIN,TOTAL 6.6 g/dL (Normal) Range: 6.0-8.5 :35 TEST FR [id number] 3.4 pg/mL (Abnormal) Range: 6.6-18.1 :35 TSH 0.89 {uIU/mL} (Normal) Range: 0.358-3.74 :35 VIT D,25 59052 35.5 ng/mL (Normal) Range: 32.0-100.0 Comments: Recent studies consider the lower limit of 32.0 ng/mL to harsh threshold for optimal health.Horace ROBLES. J Nutr. 2004;135(2):317-22.Performed at: [place] [address] Director: Jacquelyn Charles MD, Phone: [phone] at: [facility] [address] [id number] Director: Joseph Sevilla MD, Phone: [phone] Plan of Care Name Dates Details Instructions mdvip wellness exam : Eprescribed prescriptions (G8553) Indication: mdvip wellness exam Low back pain potentially associated with radiculopathy : Eprescribed prescriptions (G8553) Indication: Low back pain potentially associated with radiculopathy Former smoker : Eprescribed prescriptions (G8553) Indication: Former smoker Chronic obstructive pulmonary disease : Eprescribed prescriptions (G8553) Indication: Chronic obstructive pulmonary disease BMI 29.0-29.9,adult : Eprescribed prescriptions (G8553) Indication: BMI 29.0-29.9,adult BMI 27.0-27.9,adult : Eprescribed prescriptions (G8553) Indication: BMI 27.0-27.9,adult Former smoker : Eprescribed prescriptions (G8553) Indication: Former smoker Former smoker : Eprescribed prescriptions (G8553) Indication: Former smoker Arthralgia of right knee : Eprescribed prescriptions (G8553) Indication: Arthralgia of right knee Chronic obstructive pulmonary disease : Eprescribed prescriptions (G8553) Indication: Chronic obstructive pulmonary disease BMI 27.0-27.9,adult : Eprescribed prescriptions (G8553) Indication: BMI 27.0-27.9,adult Former smoker : Pneumococcal Pneumonia Shot *: pneumococcal Indication: Former smoker Former smoker : Eprescribed prescriptions (G8553) Indication: Former smoker BMI 26.0-26.9,adult : Eprescribed prescriptions (G8553) Indication: BMI 26.0-26.9,adult [facility] Wellness Physical : Eprescribed prescriptions (G8553) Indication: [facility] Wellness Physical Bradycardia : Eprescribed prescriptions (G8553) Indication: Bradycardia Dizziness : Dizziness *: dizziness Indication: Dizziness Dizziness : Eprescribed prescriptions (G8553) Indication: Dizziness Seizure disorder : Eprescribed prescriptions (G8553) Indication: Seizure disorder Medicare annual wellness visit, initial : fall reduction handout Indication: Medicare annual wellness visit, initial Medicare annual wellness visit, initial : elderly packet given Indication: Medicare annual wellness visit, initial Medicare annual wellness visit, initial : advance planning information Indication: Medicare annual wellness visit, initial Medicare annual wellness visit, initial : Eprescribed prescriptions (G8553) Indication: Medicare annual wellness visit, initial Aphthous ulcer : Follow up if no improvement or if symptoms worsen Indication: Aphthous ulcer Encounter for immunization : Shingles Vaccine Education 2005 Indication: Encounter for immunization Hypoglycemia : Eprescribed prescriptions (G8553) Indication: Hypoglycemia Seizure disorder : Flu (Influenza) *: flu Indication: Seizure disorder Seizure disorder : Eprescribed prescriptions (G8553) Indication: Seizure disorder Need for prophylactic vaccination and inoculation against influenza (Renamed from Need for immunization against influenza) : Flu (Influenza) *: flu Indication: Need for prophylactic vaccination and inoculation against influenza (Renamed from Need for immunization against influenza) Need for prophylactic vaccination and inoculation against influenza (Renamed from Need for immunization against influenza) : Flu (Influenza) *: flu shot Indication: Need for prophylactic vaccination and inoculation against influenza (Renamed from Need for immunization against influenza) Need for prophylactic vaccination and inoculation against influenza (Renamed from Need for immunization against influenza) : Eprescribed prescriptions (G8553) Indication: Need for prophylactic vaccination and inoculation against influenza (Renamed from Need for immunization against influenza) Ear pain, left : Follow up if no improvement or if symptoms worsen Indication: Ear pain, left Ear pain, left : Anesthesia - Lido with Epi Indication: Ear pain, left Sebaceous cyst of ear : I/D Cyst/Abscess Indication: Sebaceous cyst of ear Seizure disorder : Eprescribed prescriptions (G8553) Indication: Seizure disorder Pharyngitis : *URI Treatment Indication: Pharyngitis Pharyngitis : Sore throat: diagnosis and treatment Indication: Pharyngitis Need for prophylactic vaccination and inoculation against influenza : Flu (Influenza) *: flu Indication: Need for prophylactic vaccination and inoculation against influenza Need for prophylactic vaccination and inoculation against influenza : Flu (Influenza) *: flu shot Indication: Need for prophylactic vaccination and inoculation against influenza Seizure disorder : Allergies: allergic reaction Indication: Seizure disorder Osteoporosis : *Bisphosphonate Education Indication: Osteoporosis Osteoporosis : Osteoporosis in Women *: bone density Indication: Osteoporosis Seizure disorder : Seizures: Brief Version *: convulsions Indication: Seizure disorder Planned Observations DRUG ASSAY-PHENOBARBITOL (98568)Indication: Generalized convulsive seizure On: 88-Zuc-905722:04 Request Phenytoin (Dilantin) (08863)Indication: Generalized convulsive seizure On: 19-Iwh-866876:04 Request LIPID PANEL (32615)Indication: Bilateral carotid artery stenosis On: 37-Qzs-397815:03 Request C-REACT PROT HIGH SENS(hsCRP) (23966)Indication: Elevated high sensitivity C-reactive protein On: 48-Xzg-735175:03 Request CBC with auto diff (61169)Indication: Elevated hemoglobin A1c On: 02-Eyg-975764:02 Request MICROALBUMIN: CREATININE RATIO (12044) AND (63749)Indication: Elevated hemoglobin A1c On: 73-Wjk-322233:02 Request METABOLIC PANEL, COMPREHENSIVE (20492)Indication: Elevated hemoglobin A1c On: 15-Fsu-122113:02 Request HGB A1C (83339)Indication: Elevated hemoglobin A1c On: 47-Tbx-700456:02 Request Phenytoin (Dilantin) (26239)Indication: Generalized convulsive seizure On: 4-Ahc-510756:40 Request CBC with auto diff (12265)Indication: Anemia On: 5-Ues-681998:40 Request METABOLIC PANEL, COMPREHENSIVE (17704)Indication: Elevated hemoglobin A1c On: 4-Lsn-168292:39 Request DRUG ASSAY-PHENOBARBITOL (92546)Indication: Generalized convulsive seizure On: 52-Cir-057653:38 Request FECAL OCCULT- Tubes sent home (08160)Indication: Anemia On: 44-Qkt-037388:31 Request IRON (95350)Indication: Anemia On: 73-Jhb-028418:31 Request LIPID PANEL (12803)Indication: Hyperlipidemia On: 84-Wle-034719:30 Request METABOLIC PANEL, COMPREHENSIVE (51838)Indication: Elevated hemoglobin A1c On: 05-Apd-634200:29 Request HGB A1C (14938)Indication: Elevated hemoglobin A1c On: 42-Dbq-643730:29 Request HGB A1C (07911)Indication: Prediabetes On: 6-Tml-887815:17 Request CBC with auto diff (83950)Indication: Generalized convulsive seizure On: 3-Qmi-557644:13 Request C-REACT PROT HIGH SENS(hsCRP) (77389)Indication: Elevated high sensitivity C-reactive protein On: 5-Xdw-787196:13 Request LIPID PANEL (89303)Indication: Bilateral carotid artery stenosis On: 4-Ajw-543432:12 Request METABOLIC PANEL, COMPREHENSIVE (94446)Indication: Bilateral carotid artery stenosis On: 3-Lgg-943431:12 Request Phenytoin (Dilantin) (33384)Indication: Generalized convulsive seizure On: 9-Xbp-929413:00 Request Comments: 1 month Metabolic Panel, Basic (47010)Indication: Dizziness On: :14 Request DRUG ASSAY-TOT PHENYTOIN (84888)Indication: Poisoning by phenytoin, accidental or unintentional, subsequent encounter On: :35 Request Magnesium (23518)Indication: Dizziness On: :28 Request Comments: stat CBC W/AUTO DIFF WBC (61268)Indication: Dizziness On: : Request Comments: stat TSH (96929)Indication: Dizziness On: : Request Comments: stat METABOLIC PANEL, COMPREHENSIVE (01520)Indication: Dizziness On: : Request Comments: stat DRUG ASSAY-PHENOBARBITOL (74156)Indication: Dizziness On: :18 Request Comments: stat Phenytoin (Dilantin) (44116)Indication: Dizziness On: :18 Request Comments: stat VITAMIN B-12 (CYANOCOBALAMIN) (28168)Indication: Dizziness On: :13 Request DRUG ASSAY-PHENOBARBITOL (51843)Indication: Seizure disorder On: :26 Request Phenytoin (Dilantin) (89175)Indication: Seizure disorder On: :26 Request PSA (PROSTATE SPECIFIC ANTIGEN) (V76.44)Indication: Screening for prostate cancer On: :25 Request METABOLIC PANEL, COMPREHENSIVE (73740)Indication: Bilateral carotid artery stenosis On: :24 Request LIPID PANEL (00106)Indication: Bilateral carotid artery stenosis On: :24 Request Vitamin D Hydroxy (87846)Indication: Vitamin D deficiency, unspecified On: :24 Request Phenytoin (Dilantin) (60842)Indication: Seizure disorder On: :09 Request DRUG ASSAY-PHENOBARBITOL (49389)Indication: Seizure disorder On: 26-Mkn-420037:09 Request PSA (PROSTATE SPECIFIC ANTIGEN) (V76.44)Indication: Encounter for screening for malignant neoplasm of prostate (Renamed from Screening for prostate cancer) On: :09 Request CBC W/AUTO DIFF WBC (50644)Indication: Seizure disorder On: :09 Request METABOLIC PANEL, COMPREHENSIVE (28426)Indication: Seizure disorder On: :09 Request LIPID PANEL (09262)Indication: Bilateral carotid artery stenosis On: :09 Request Vitamin D Hydroxy (64077)Indication: Vitamin D deficiency, unspecified On: :08 Request METABOLIC PANEL, COMPREHENSIVE (61087)Indication: Osteoporosis On: :08 Request LIPID PANEL (38039)Indication: Bilateral carotid artery stenosis On: :52 Request DRUG ASSAY-PHENOBARBITOL (96656)Indication: Seizure disorder On: :52 Request Phenytoin (Dilantin) (27282)Indication: Seizure disorder On: :51 Request Vitamin D Hydroxy (84351)Indication: Vitamin D deficiency, unspecified On: :51 Request DRUG ASSAY-PHENOBARBITOL (11085)Indication: Seizure disorder On: :10 Request PSA (PROSTATE SPECIFIC ANTIGEN) (V76.44)Indication: Screening for prostate cancer On: :10 Request CBC W/AUTO DIFF WBC (30319)Indication: Seizure disorder On: : Request METABOLIC PANEL, COMPREHENSIVE (50656)Indication: Seizure disorder On: :09 Request LIPID PANEL (45674)Indication: Bilateral carotid artery stenosis On: :09 Request Phenytoin (Dilantin) (83510)Indication: Seizure disorder On: :06 Request Vitamin D Hydroxy (35342)Indication: Osteoporosis On: :00 Request DRUG ASSAY-PHENOBARBITOL (92351)Indication: Seizure disorder On: :49 Request Phenytoin (Dilantin) (74787)Indication: Seizure disorder On: :49 Request Phenytoin (Dilantin) (39537)Indication: Cardiac dysrhythmia On: 0-Kny-257610:01 Request Culture, Aerobic, Bacterial ID ([id number])Indication: Sebaceous cyst of ear On: 3-Bng-261047:55 Request CBC WITH MANUAL DIFF (16242)Indication: Seizure disorder On: :49 Request METABOLIC PANEL, COMPREHENSIVE (92874)Indication: Osteoporosis On: :49 Request LIPID PANEL (62961)Indication: Bilateral carotid artery stenosis On: :49 Request Vitamin D Hydroxy (54377)Indication: Vitamin D deficiency, unspecified On: :46 Request CBC WITH MANUAL DIFF (25023)Indication: Seizure disorder On: :02 Request METABOLIC PANEL, COMPREHENSIVE (24270)Indication: Seizure disorder On: :02 Request LIPID PANEL (79674)Indication: Bilateral carotid artery stenosis On: :02 Request Phenytoin (Dilantin) (84056)Indication: Seizure disorder On: :01 Request Vitamin D Hydroxy (12564)Indication: Vitamin D deficiency, unspecified On: 97-Kds-13155:59 Request PSA (PROSTATE SPECIFIC ANTIGEN) (V76.44)Indication: Screening for prostate cancer On: :57 Request Phenytoin (Dilantin) (14481)Indication: Seizure disorder On: 45-Nbg-751767:03 Request CBC WITH MANUAL DIFF ([id number])Indication: Osteoporosis On: 50-Jtg-971540:03 Request METABOLIC PANEL, COMPREHENSIVE (54836)Indication: Osteoporosis On: 80-Ujc-668408:03 Request LIPID PANEL (10361)Indication: Bilateral carotid artery stenosis On: 63-Ifa-135661:03 Request Vitamin D Hydroxy ([id number])Indication: Vitamin D deficiency, unspecified On: 04-Vyl-144429:02 Request TSH ([id number])Indication: Osteoporosis On: 11-Klh-235526:02 Request DRUG ASSAY-PHENOBARBITOL ([id number])Indication: Seizure disorder On: 77-Npg-139376:49 Request CBC with manual diff ([id number])Indication: Encounter for long-term (current) use of medications On: 58-Jbm-240590:47 Request Metabolic Panel, Comprehensive ([id number])Indication: Encounter for long-term (current) use of medications On: 58-Zii-608032:47 Request Lipid Panel ([id number])Indication: Encounter for long-term (current) use of medications On: 41-Byd-755232:47 Request PSA (PROSTATE SPECIFIC ANTIGEN) ([id number])Indication: Screening for prostate cancer On: 45-Lhg-181024:47 Request Phenytoin (Dilantin) ([id number])Indication: Seizure disorder On: 82-Xvd-819104:45 Request CALCIFEDIOL ([id number])Indication: Vitamin D deficiency, unspecified On: 11-Vxt-800453:44 Request DRUG ASSAY-PHENOBARBITOL ([id number])Indication: Encounter for long-term (current) use of medications On: 42-Gas-80081:32 Request DRUG ASSAY-PHENOBARBITOL ([id number])Indication: Encounter for long-term (current) use of medications On: 99-Syd-422137:58 Request Vitamin D Hydroxy ([id number])Indication: Vitamin D deficiency, unspecified On: 79-Lff-789148:32 Request METABOLIC PANEL, COMPREHENSIVE ([id number])Indication: Seizure disorder On: 81-Rod-601354:32 Request CBC WITH MANUAL DIFF ([id number])Indication: Seizure disorder On: 91-Dxh-169410:32 Request Phenytoin (Dilantin) ([id number])Indication: Seizure disorder On: 79-Pxf-258234:32 Request Phenytoin (Dilantin) ([id number])Indication: Seizure disorder On: 15-Xjr-411126:12 Request Phenytoin (Dilantin) ([id number])Indication: Seizure disorder On: 88-Jqh-574486:05 Request Comments: 2 weeks PSA (PROSTATE SPECIFIC ANTIGEN) (V76.44)Indication: Screening for prostate cancer On: :30 Request TESTOSTERONE FREE ([id number])Indication: Testicular hypofunction On: 22-Pju-480898:29 Request LIPID PANEL ([id number])Indication: Hypoglycemia On: :28 Request Vitamin D Hydroxy ([id number])Indication: Vitamin D deficiency, unspecified On: :27 Request TSH ([id number])Indication: Osteoporosis On: :27 Request CBC WITH MANUAL DIFF ([id number])Indication: Seizure disorder On: :27 Request METABOLIC PANEL, COMPREHENSIVE ([id number])Indication: Seizure disorder On: :27 Request Phenytoin (Dilantin) ([id number])Indication: Seizure disorder On: :27 Request CBC WITH MANUAL DIFF ([id number])Indication: Osteoporosis On: 63-Vmo-880744:09 Request METABOLIC PANEL, COMPREHENSIVE ([id number])Indication: Seizure disorder On: 36-Cof-135609:09 Request TESTOSTERONE FREE ([id number])Indication: Testicular hypofunction On: :57 Request Vitamin D Hydroxy ([id number])Indication: Vitamin D deficiency, unspecified On: 18-Kxe-374450:57 Request Phenytoin (Dilantin) ([id number])Indication: Seizure disorder On: 10-Kns-360625:03 Request TESTOSTERONE FREE ([id number])Indication: Osteoporosis On: :09 Request Vitamin D Hydroxy ([id number])Indication: Osteoporosis On: :03 Request TSH ([id number])Indication: Osteoporosis On: :03 Request UPEP ([id number])Indication: Osteoporosis On: :03 Request SPEP ([id number])Indication: Osteoporosis On: 65-Wos-815498:03 Request PHOSPHORUS ([id number])Indication: Osteoporosis On: :03 Request PARATHORMONE ([id number])Indication: Osteoporosis On: 87-Jzl-785196:03 Request Planned Encounters Medical; [facility] 3 Month FU - On: 29-Sep-2018 9:45 [facility] Fast DO, Jessica A Fast DO, Jessica A Planned Procedures ELECTROCARDIOGRAM, COMPLETE (ECG) On: 28-Jun-2018 Intent ([id number])By: Fast DO, Jessica A Fast DO, Comments: ekg showed normal sinus rhythym, normal axis, no acute st/t wave changes sinus lokesh Jessica A Flu Vaccine (Quadrivalent) [id number]: On: 14-Jun-2018 Intent Fast DO, Jessica A Fast DO, Jessica A Comments: Lot #[id number]/30/2019Site-L dltd, IMDose prefilled syringegiven by: Yuly reviewed and ABN signed Radiology - Lumbar SpineBy: Fast DO, On: 21-Mar-2018 Intent Jessica A Fast DO, Jessica A Cartoid DopplerBy: Fast DO, Jessica A On: 21-Dec-2017 Intent Fast DO, Jessica A ELECTROCARDIOGRAM, COMPLETE (ECG) On: 20-Jun-2017 Intent ([id number])By: Fast DO, Jessica A Fast DO, Comments: ekg showed normal sinus rhythym, normal axis, no acute st/t wave changes junctional lokesh Jessica A Ultrasound - ThyroidBy: Fast DO, On: 20-Jun-2017 Intent Jessica A Fast DO, Jessica A Flu Vaccine (Quadrivalent) 16577Fb: On: 20-Jun-2017 Intent Fast DO, Jessica A Fast DO, Jessica A Comments: Lot #[id number]/13/18ite-L dltd, IMDose prefilled syringegiven by:Paramjit, LPNVIS and ABN signed Radiology - Finger(s) - RightBy: Fast On: 15-Mar-2017 Intent DO, Jessica A Fast DO, Jessica A Comments: attn 2nd and 3 rd digit Radiology - Knee - Right - Weight On: 15-Mar-2017 Intent BearingBy: Fast DO, Jessica A Fast DO, Jessica A DEXA SCAN AXIAL SKELETON ([id number])By: On: 05-Nov-2016 Intent Fast DO, Jessica A Fast DO, Jessica A Comments: january Cartoid DopplerBy: Fast DO, Jessica A On: 05-Nov-2016 Intent Fast DO, Jessica A Comments: november PNEUM VAC ADLT/IMUMNOSPR, SBC/INTRM On: 05-Nov-2016 Intent ([id number])By: Fast DO, Jessica A Fast DO, Comments: lot: [id number]: 02/05/18ite/route: L del/IMamt: 0.5mLVIS signed when applicableChelsea, WOODS OVERSEER Jessica A CT - Brain/Head (IV Contrast On: 05-May-2016 Intent Needed)By: Fast DO, Jessica A Fast DO, Jessica A Ultrasound - ThyroidBy: Fast DO, On: 05-May-2016 Intent Jessica A Fast DO, Jessica A Flu Vaccine (Quadrivalent) [id number]: On: 05-May-2016 Intent Fast DO, Jessica A Fast DO, Jessica A Comments: FLUlot: [id number]:02/25/17site:rt deltoidroute:IMdose:.5mlDEMICK, [place] ELECTROCARDIOGRAM, COMPLETE (ECG) On: 14-Apr-2016 Intent ([id number])By: Fast DO, Jessica A Fast DO, Comments: ekg showed sinus lokesh normal axis no acute change Jessica A Echo CompleteBy: Fast DO, Jessica A On: 14-Apr-2016 Intent Fast DO, Jessica A Nuclear Stress Test/Stress On: 14-Apr-2016 Intent SPECT/TreadmillBy: Fast DO, Jessica A Fast DO, Jessica A Overnight Pulse Ox([id number])By: Hola DO, On: 23-Oct-2015 Intent Jessica A Fast DO, Jessica A Six Minute Walk Assessment ([id number])By: On: 23-Oct-2015 Intent Fast DO, Jessica A Fast DO, Jessica A Ultrasound - AortaBy: Fast DO, Jessica On: 08-Aug-2015 Intent A Fast DO, Jessica A Flu Vaccine (Quadrivalent) [id number]: On: 08-Aug-2015 Intent Fast DO, Jessica A Fast DO, Jessica A Comments: lot [id number]: 02/26/2016site/route L shala, IMamt 0.5mlVIS and ABN signed when applicableChelsea, [employer] OVERSEER Six Minute Walk Assessment ([id number])By: On: 08-Aug-2015 Intent Fast DO, Jessica A Fast DO, Jessica A Overnight Pulse OX ([id number])By: Fast On: 08-Aug-2015 Intent DO, Jessica A Fast DO, Jessica A Cartoid DopplerBy: Fast DO, Jessica A On: 08-Aug-2015 Intent Fast DO, Jessica A IMMUNIZ ADMNIN, 1 VAC, SNGL/COMBO On: 17-Feb-2015 Intent ([id number])By: Fast DO, Jessica A Fast DO, Jessica A DEXA SCAN AXIAL SKELETON ([id number])By: On: 07-Oct-2014 Intent Fast DO, Jessica A Fast DO, Jessica A Flu Vaccine (Quadrivalent) 55399Zh: On: 03-Jul-2014 Intent Fast DO, Jessica A Fast DO, Jessica A Comments: lot:[id number]:dose:0.5mLRoute: IMlocation: L armgiven by: msmith ADMINISTRATION OF INFLUENZA VIRUS On: 03-Jul-2014 Intent VACCINE ([id number])By: Fast DO, Jessica A Fast DO, Jessica A Holter Monitor 24 hrsBy: Fast DO, On: 15-Mar-2014 Intent Jessica A Fast DO, Jessica A Cartoid DopplerBy: Fast DO, Jessica A On: 15-Mar-2014 Intent Fast DO, Jessica A IMMUNIZ ADMNIN, 1 VAC, SNGL/COMBO On: 14-Sep-2013 Intent ([id number])By: Fast DO, Jessica A Fast DO, Jessica A FLU VAC, SPLIT, >3 YEARS, INTRAMUSC On: 14-Sep-2013 Intent ([id number])By: Fast DO, Jessica A Fast DO, Comments: Lot #:[id number] date:mount given:0.5mlRoute: IMSite given: L dltdVIS and ABN signedGiven by: MYESHA Lozano Jessica A Eprescribed prescriptions ([id number])By: On: 14-Sep-2013 Intent Rosario Dickson JALYN (Ankle Brachial Index) ([id number])By: On: 17-Jan-2013 Intent Fast DO, Jessica A Fast DO, Jessica A Cartoid DopplerBy: Fast DO, Jessica A On: 17-Jan-2013 Intent Fast DO, Jessica A Eprescribed prescriptions ([id number])By: On: 17-Jan-2013 Intent Rosario Dickson DXA, BONE DENSITY, AXIAL SKELETON On: 20-Sep-2012 Intent ([id number])By: Fast DO, Jessica A Fast DO, Jessica A Eprescribed prescriptions ([id number])By: On: 20-Sep-2012 Intent Rosario Dickson Six Minute Walk Assessment ([id number])By: On: 24-Feb-2012 Intent Mast RN, Ángela Inhaler Demo ([id number])By: Fast DO, On: 26-Jan-2012 Intent Jessica A Fast DO, Jessica A Six Minute Walk Assessment ([id number])By: On: 26-Jan-2012 Intent Fast DO, Jessica A Fast DO, Jessica A Overnight Pulse OX ([id number])By: Hola On: 26-Jan-2012 Intent DO, Jessica A Fast DO, Jessica A Spirometry ([id number])By: Yessi On: 26-Jan-2012 Intent Rosario Comments: god effort and curve mod- severe obstruction TDAP VACCINE >7 IM ([id number])By: On: 21-Jul-2011 Intent Rosario Dickson Comments: Lot #[id number]-L arm, IMDose prefilledgiven by:Adalgisa KOVACS - OtherBy: Hola GOODSON, Jessica A Fast On: 21-Jul-2011 Intent DO Jessica A Comments: right foot FLU VAC, SPLIT, >3 YEARS, INTRAMUSC On: 21-Jul-2011 Intent ([id number])By: Rosario Dickson Comments: pharmacy PNEUM VAC ADLT/IMUMNOSPR, SBC/INTRM On: 28-Jul-2010 Intent ([id number])By: Jessica Limon DO A Fast DO, Comments: Lot #[id number]-R armDose0.5mlgiven by:ATA Hernandez IMMUNIZ ADMNIN, 1 VAC, SNGL/COMBO On: 28-Jul-2010 Intent ([id number])By: Rudolph Limon DOa A Fast DO, Jessica A Overnight Pulse Ox([id number])By: Amanda RN, On: 22-Jul-2010 Intent Ángela Six Minute Walk Assessment ([id number])By: On: 22-Jul-2010 Ángela Ortiz RN Overnight Pulse OX ([id number])By: Hola On: 15-Jun-2010 Intent DO Jessica A Fast DO, Jessica A Six Minute Walk Assessment ([id number])By: On: 15-Jun-2010 Intent Hola GOODSON, Jessica A Fast DO, Jessica A DXA, BONE DENSITY, AXIAL SKELETON On: 15-Jun-2010 Intent ([id number])By: Hola GOODSON Jessica A Fast DO, Jessica A Radiology - Chest- PA and LatBy: Fast On: 15-Jun-2010 Intent DO, Jessica A Fast DO, Jessica A Spirometry ([id number])By: Jessica Limon DO On: 15-Jun-2010 Intent A Fast DO, Jessica A Comments: good effort and curve mod obst EKG ([id number])By: Hola GOODSON Jessica A Fast On: 15-Jun-2010 Intent DO, Jessica A Comments: ekg showed normal sinus rhythym, near rightl axis, no acute st/t wave changes Instructions Name Dates Details [facility] exam : How to access health information online Indication: [facility] wellness exam [facility] exam : How to access health information online - Detail Indication: [facility] wellness exam [facility] exam : Patient Instructions Indication: [facility] Hyperlipidemia : DISCONTINUED - LIPID PANEL ([id number]) Indication: Hyperlipidemia Elevated hemoglobin A1c : DISCONTINUED - HGB A1C (38310) Indication: Elevated hemoglobin A1c Low back pain potentially associated with radiculopathy : How to access health information online Indication: Low back pain potentially associated with radiculopathy Low back pain potentially associated with radiculopathy : How to access health information online - Detail Indication: Low back pain potentially associated with radiculopathy Low back pain potentially associated with radiculopathy : Patient Instructions Indication: Low back pain potentially associated with radiculopathy Former smoker : How to access health information online Indication: Former smoker Former smoker : How to access health information online - Detail Indication: Former smoker Former smoker : Patient Instructions Indication: Former smoker Chronic obstructive pulmonary disease : How to access health information online Indication: Chronic obstructive pulmonary disease Chronic obstructive pulmonary disease : How to access health information online - Detail Indication: Chronic obstructive pulmonary disease Chronic obstructive pulmonary disease : Patient Instructions Indication: Chronic obstructive pulmonary disease BMI 29.0-29.9,adult : How to access health information online Indication: BMI 29.0-29.9,adult BMI 29.0-29.9,adult : How to access health information online - Detail Indication: BMI 29.0-29.9,adult BMI 29.0-29.9,adult : Patient Instructions Indication: BMI 29.0-29.9,adult BMI 27.0-27.9,adult : How to access health information online Indication: BMI 27.0-27.9,adult BMI 27.0-27.9,adult : How to access health information online - Detail Indication: BMI 27.0-27.9,adult BMI 27.0-27.9,adult : Patient Instructions Indication: BMI 27.0-27.9,adult Former smoker : How to access health information online Indication: Former smoker Former smoker : How to access health information online - Detail Indication: Former smoker Former smoker : Patient Instructions Indication: Former smoker Former smoker : How to access health information online Indication: Former smoker Former smoker : How to access health information online - Detail Indication: Former smoker Former smoker : Patient Instructions Indication: Former smoker Arthralgia of right knee : How to access health information online Indication: Arthralgia of right knee Arthralgia of right knee : How to access health information online - Detail Indication: Arthralgia of right knee Arthralgia of right knee : Patient Instructions Indication: Arthralgia of right knee Chronic obstructive pulmonary disease : How to access health information online Indication: Chronic obstructive pulmonary disease Chronic obstructive pulmonary disease : How to access health information online - Detail Indication: Chronic obstructive pulmonary disease Chronic obstructive pulmonary disease : Patient Instructions Indication: Chronic obstructive pulmonary disease BMI 27.0-27.9,adult : How to access health information online Indication: BMI 27.0-27.9,adult BMI 27.0-27.9,adult : How to access health information online - Detail Indication: BMI 27.0-27.9,adult BMI 27.0-27.9,adult : Patient Instructions Indication: BMI 27.0-27.9,adult Former smoker : How to access health information online Indication: Former smoker Former smoker : How to access health information online - Detail Indication: Former smoker Former smoker : Patient Instructions Indication: Former smoker BMI 26.0-26.9,adult : How to access health information online Indication: BMI 26.0-26.9,adult BMI 26.0-26.9,adult : How to access health information online - Detail Indication: BMI 26.0-26.9,adult BMI 26.0-26.9,adult : Patient Instructions Indication: BMI 26.0-26.9,adult [facility] Physical : How to access health information online Indication: [facility] Physical [facility] Physical : How to access health information online - Detail Indication: [facility] Physical [facility] Physical : Patient Instructions Indication: [facility] Physical Bradycardia : How to access health information online Indication: Bradycardia Bradycardia : How to access health information online - Detail Indication: Bradycardia Bradycardia : Patient Instructions Indication: Bradycardia Dizziness : How to access health information online Indication: Dizziness Dizziness : How to access health information online - Detail Indication: Dizziness Dizziness : Patient Instructions Indication: Dizziness Seizure disorder : How to access health information online Indication: Seizure disorder Seizure disorder : How to access health information online - Detail Indication: Seizure disorder Seizure disorder : Patient Instructions Indication: Seizure disorder Medicare annual wellness visit, initial : How to access health information online Indication: Medicare annual wellness visit, initial Medicare annual wellness visit, initial : How to access health information online - Detail Indication: Medicare annual wellness visit, initial Medicare annual wellness visit, initial : Patient Instructions Indication: Medicare annual wellness visit, initial Hypoglycemia : How to access health information online Indication: Hypoglycemia Hypoglycemia : How to access health information online - Detail Indication: Hypoglycemia Hypoglycemia : Patient Instructions Indication: Hypoglycemia Seizure disorder : How to access health information online Indication: Seizure disorder Seizure disorder : How to access health information online - Detail Indication: Seizure disorder Seizure disorder : Patient Instructions Indication: Seizure disorder Need for prophylactic vaccination and inoculation against influenza (Renamed from Need for immunization against influenza) : Patient Instructions Indication: Need for prophylactic vaccination and inoculation against influenza (Renamed from Need for immunization against influenza) Bilateral carotid artery stenosis : How to access health information online Indication: Bilateral carotid artery stenosis Bilateral carotid artery stenosis : How to access health information online - Detail Indication: Bilateral carotid artery stenosis Seizure disorder : Patient Instructions Indication: Seizure disorder Seizure disorder : Patient Instructions Indication: Seizure disorder Osteoporosis : Patient Instructions Indication: Osteoporosis Seizure disorder : Patient Instructions Indication: Seizure disorder Encounters Phone Encounter On: 30-Jun-2018 10:39 Encounter Diagnosis: Osteoporosis End: 30-Jun-2018 11:22 [facility] Review On: 28-Jun-2018 7:56 Encounter Reason: Physical male exam - General health: feels well with no complaints (would like to go over some blood work he had), has good energy level and is sleeping well. The patient's appetite is normal. Nutrition : normal/adequate. Exercises 0 (golfing) days per week. Sleeps on average 7 (7-8) hours per night. Elimination problems include urinary frequency (gets up to use restroom at night). Safety measures incl ude appropriate use of safety belts and home smoke detectors. Current emotional problems include depression (occasionally). The patient's libido is absent. Note for Physical exam: [facility]-- he is feeling better hip/back lange- he is doing some exercises for this - going to start back to the gym- getting up 3-4 times a night and doesnt quit drinking prior to bedEncounter Diagnosis: BMI 26.0-26.9,adult, Former smoker, Ledderhose's disease, [facility] wellness exam, Chronic obstructive pulmonary disease, Bilateral carotid artery stenosis, Elevated hemoglobin A1c, Vitamin D deficiency, unspecified, Elevated high sensitivity C-reactive protein, Generalized convulsive seizure [facility] Office Visit On: 14-Jun-2018 9:05 Encounter Reason: Injections - The medication the patient is here to receive is other (influenza vaccine).Encounter Diagnosis: Need for prophylactic vaccination and inoculation against influenza (Renamed from Need for immunization against influenza) End: 14-Jun-2018 9:39 [facility] Phone Encounter On: 04-Apr-2018 12:19 Encounter Diagnosis: Chronic obstructive pulmonary disease End: 04-Apr-2018 12:25 [facility] Office Visit On: 21-Mar-2018 11:00 Encounter Reason: Follow up for chronic medical issues - The patient feels well with minor complaints (issues with L hip pain x a couple weeks. Thinks maybe injuried golfing on vacation but not sure), has good energy lev End: 23-Mar-2018 21:05 el and is sleeping well. Patient has been compliant with instructions. Current medication use: no side effects and compliant with dosing regimen. Patient sleeps 7 hours per night. Nutrition: balanced di et. The medical issues the patient is following up for include All identified problems below, COPD, osteoporosis/osteopenia and other (concerned about A1C and CRP). Note for Follow up for chronic medic al issues: he was golfing in [place] long car ride then low back radiating down left buttocks and into calf maybe little weak not numb now cant golf went to chiropractor not lot of help - ibuprofen he lps- weight down another 7 pounds trying to lose- he has cut back carbs- bp is goodEncounter Diagnosis: Former smoker, BMI 26.0-26.9,adult, Low back pain potentially associated with radiculopathy, Lung nodule, Hyperlipidemia, Vitamin D deficiency, unspecified, Elevated high sensitivity C-reactive protein, Elevated hemoglobin A1c, Anemia, Generalized convulsive seizure [facility] Office Visit On: 10-Jan-2018 10:08 Encounter Reason: Follow up tests - Date: (chest CT ). Note for Discuss procedure results: pt brought report from dr flores office visit yesterday 01/09/18- he still has him on anora and reviewed ct- and disc End: 10-Jan-2018 11:52 ussed he is working on weight loss and exerciseEncounter Diagnosis: Former smoker, BMI 27.0-27.9,adult, Lung nodule [facility] Office Visit On: 22-Dec-2017 21:30 Encounter Diagnosis: Anemia End: 22-Dec-2017 21:32 [facility] Office Visit On: 21-Dec-2017 9:46 Encounter Reason: Follow up tests - Date: (12/15/17 blood work)., [ADDITIONAL REASON] Follow up for chronic medical issues - The patient feels well with minor complai End: 22-Dec-2017 21:29 nts (issues with pain in L thumb for about 1 month without any known injury), has good energy level and is sleeping well. Patient has been compliant with instructions. Current medication use: no side ef fects and compliant with dosing regimen. Patient sleeps 7 hours per night. Nutrition: balanced diet. The medical issues the patient is following up for include All identified problems below, COPD, osteo porosis/osteopenia and other (concerned about A1C and CRP). Note for Follow up for chronic medical issues: his weight down 7 pounds and he trying bp is good- he is exercising- he is walking - or working outside Encounter Diagnosis: Former smoker, BMI 28.0-28.9,adult, Rash, Bilateral carotid artery stenosis, Chronic obstructive pulmonary disease, Osteoporosis, Vitamin D deficiency, unspecified, Generalized convulsive seizure, Elevated hemoglobin A1c, Hyperlipidemia [facility] Office Visit On: 16-Nov-2017 10:23 Encounter Reason: Rash - Symptoms include crusting, skin dryness and pruritus. The skin rash is located on the right side of the scalp and right side of the neck (behind ear). Onset was week(s) ago. The patient describes End: 17-Nov-2017 8:53 this as worsening. Current treatment includes moisturizers. Note for Rash: no where else is itchy- seem to get worse with moisturizersEncounter Diagnosis: Former smoker, BMI 29.0-29.9,adult, Rash [facility] Office Visit On: 21-Sep-2017 9:40 Encounter Reason: Follow up for chronic medical issues - The patient feels well with no complaints, has good energy level and is sleeping well. Patient has been compliant with instructions. Current medication use: no deyvi End: 22-Sep-2017 18:30 e effects and compliant with dosing regimen. Patient sleeps 7 hours per night. Nutrition: balanced diet. The medical issues the patient is following up for include All identified problems below, COPD, o steoporosis/osteopenia and other (concerned about A1C and CRP). Note for Follow up for chronic medical issues: feeling pretty good still some mood issues so we talked about counseling and he will cons ider and bp is good and his chol up bit but hasnt been exercising as scraped his foot hard to wear shoe so waiting for it to heal so can get started again- no seizures and breathing ok but not sure anor o doing it for him -not sure sourav he gained weight or not- we talked about relooking at lungs and working up breathing and at this point he not feel signfiicant enough change to go further at this point if changes mind he will let meknow- Encounter Diagnosis: Former smoker, BMI 27.0-27.9,adult, Chronic obstructive pulmonary disease, Generalized convulsive seizure, Vitamin D deficiency, unspecified, Osteoporosis, Elevated hemoglobin A1c, Bilateral carotid artery stenosis, Depressed mood [facility] Office Visit On: 20-Jun-2017 8:36 Encounter Reason: Physical male exam - General health: feels well with no complaints, has good energy level and is sleeping well. The patient's appetite is normal. Nutrition: normal/adequate. Exercises 5 days per week. S End: 07-Jul-2017 21:52 leeps on average 7 hours per night. Normal bowel and bladder habits. Safety measures include appropriate use of safety belts and home smoke detectors. Current emotional problems include anxiety and depr ession. The patient's libido is absent. Note for Physical exam: [facility]- he is feeling better from uri- his breathing is stableEncounter Diagnosis: BMI 27.0-27.9,adult, Former smoker, Need for prophylactic vaccination and inoculation against influenza (Renamed from Need for immunization against influenza), Bilateral carotid artery stenosis, Chronic obstructive pulmonary disease, Osteoporosis, Tick bite, Thyroid nodule, Vitamin D deficiency, unspecified, Chronic daily headache, Generalized convulsive seizure, [facility], Elevated hemoglobin A1c, Elevated high sensitivity C-reactive protein, Erectile dysfunction [facility] Office Visit On: 15-Jun-2017 9:02 Encounter Reason: Cold Symptoms - Symptoms include nasal congestion, runny nose, dry cough, facial pressure, facial pain and headache, while symptoms do not include sore throat. Onset was gradual 5 day(s) ago. The sympto End: 15-Jun-2017 12:49 ms occur constantly. The patient describes this as worsening. Associated symptoms include fatigue, while associated symptoms do not include ear pain, wheezing, shortness of breath, nausea, vomiting, shiraz rrhea or fever. Current treatment includes non-prescription cold medication. Note for Cold symptoms: tuesday- no temp- getting colored sputum out of nose chestEncounter Diagnosis: BMI 27.0-27.9,adult, Former smoker, Acute upper respiratory infection [facility] Phone Encounter On: 08-Apr-2017 7:32 Encounter Diagnosis: Osteoporosis End: 08-Apr-2017 7:37 [facility] Office Visit On: 01-Apr-2017 9:50 Encounter Reason: Follow up tests - Diagnostic tests include other (labs) and X- Ray. Date: (03/15/17). Note for Discuss procedure results: also had tick bite wed left forearm - was engorged- didnt look at it to know what - no bullseye End: 01-Apr-2017 10:38 Encounter Diagnosis: Arthralgia of right knee, Former smoker, BMI 27.0-27.9,adult, Joint pain in fingers of right hand, Tick bite, Chronic obstructive pulmonary disease [facility] Office Visit On: 15-Mar-2017 8:59 Encounter Reason: Follow up for chronic medical issues - The patient feels well with minor complaints (rash on legs), has good energy level and is sleeping well. Patient has been compliant with instructions. Current medi End: 15-Mar-2017 9:59 cation use: experiencing side effects (???) and compliant with dosing regimen. Patient sleeps 7 hours per night. Nutrition: balanced diet. The medical issues the patient is following up for include All identified problems below, osteoporosis/osteopenia and other (concerned about A1C and CRP). Note for Follow up for chronic medical issues: bp is good and weight coming back down watching diet - golfing again, [ADDITIONAL REASON] Follow up, Laboratory Test Results - Date: (03/07/17). , [ADDITIONAL REASON] Rash - Symptoms include rash, while symptoms do not include fever. The patient d escribes the rash as red, nontender and bumpy. The rash is located on the left leg and on the right leg. Onset was sudden 1 week(s) ago. The rash is receding. Associated symptoms do not include arthralg ias, myalgias, sore throat, neck stiffness, lightheadedness, cough, abdominal pain, nausea, vomiting or diarrhea. Note for Rash: noticed after being out in sun for several hours- primarily on lower le gs - for last week- not itching- it is diminishing- for last few days , [ADDITIONAL REASON] Joint Pain - Note for Joint pain: right knee aches and right middle finger and second fingr stiff and doesnt want to bend in am and painful Encounter Diagnosis: Chronic obstructive pulmonary disease, Former smoker, BMI 26.0- 26.9,adult, Petechiae, Arthralgia of right knee, Joint pain in fingers of right hand, Vitamin D deficiency, unspecified, Elevated high sensitivity C-reactive protein , Bilateral carotid artery stenosis, Encounter for screening for malignant neoplasm of prostate (Renamed from Screening for prostate cancer) [facility] Phone Encounter On: 16-Feb-2017 14:01 Encounter Diagnosis: Chronic obstructive pulmonary disease End: 16-Feb-2017 14:08 [facility] Office Visit On: 29-Nov-2016 10:00 Encounter Reason: Cold Symptoms - Symptoms include nasal congestion, runny nose, hoarseness, productive cough, facial pressure, facial pain and headache, while symptoms do not include sore throat. Onset was sudden 1 week End: 29-Nov-2016 10:25 (s) ago. There is no known event that preceded symptom onset. The symptoms occur constantly. The patient describes this as unchanged. Associated symptoms do not include ear pain, wheezing, shortness of breath, nausea, vomiting or diarrhea. The patient is not currently being treated for this problem. Note for Cold symptoms: not sob feels like not down in chest felt chilled didnt take temp-not body aching- yellow greeen sputumEncounter Diagnosis: BMI 27.0-27.9,adult, Former smoker, Acute upper respiratory infection [facility] Phone Encounter On: 16-Nov-2016 9:48 Encounter Diagnosis: Hyperkalemia End: 16-Nov-2016 9:49 [facility] Office Visit On: 05-Nov-2016 8:36 Encounter Reason: Follow up tests - Date: (11/03/16 blood work)., [ADDITIONAL REASON] Follow up for chronic medical issues - The patient feels well with minor complai End: 07-Nov-2016 18:03 nts (R shoulder pain after doing some exercises a couple weeks ago), has good energy level and is sleeping well. Patient has been compliant with instructions. Current medication use: no side effects and compliant with dosing regimen. Patient sleeps 7 hours per night. Nutrition: balanced diet. The medical issues the patient is following up for include All identified problems below, osteoporosis/osteope floyd and other (concerned about A1C and CRP). Note for Follow up for chronic medical issues: he has a breathing test with [facility] and then followup - he not sure if anora working as good- or if it was because he quit walking so he went back to 3 weeks ago walking- right shoulder still hurting sensitive to touch and is getting better- right ac joint hasnt taken anythign for it Encounter Diagnosis: Former smoker, BMI 27.0-27.9,adult, Generalized convulsive seizure, Encounter for hepatitis C virus screening test for high risk patient, Chronic obstructive pulmonary disease, Pneumococcal vaccination given, Prediabetes, Elevated high sensitivity C-reactive protein, Vitamin D deficiency, unspecified, Bilateral carotid artery stenosis, Osteoporosis, Shoulder pain, Hyperkalemia [facility] Office Visit On: 06-Aug-2016 8:38 Encounter Reason: Follow up for chronic medical issues - The patient feels well with minor complaints (he does feel down some still but he doesnt want to do meds and we talked about him getting back in to exercise), has End: 08-Aug-2016 19:53 good energy level and is sleeping well. Patient has been compliant with instructions. Current medication use: no side effects and compliant with dosing regimen. Patient sleeps 7 hours per night. Nutriti on: balanced diet. The medical issues the patient is following up for include osteoporosis/osteopenia and other (concerned about A1C and CRP). Note for Follow up for chronic medical issues: he is deshaun thing ok unless goes in cold where he notices that makes it more difficult - this isnt new he has noticed this in years past when cold- no seizures wieght down and watching diet sugar better- has bad to oth so crp up so he is getting root canal- dizziness better and more energy, [ADDITIONAL REASON] Follow up tests - Diagnostic tests include other (08/02). Encounter Diagnosis: BMI 26.0-26.9,adult, Former smoker, Generalized convulsive seizure, Elevated high sensitivity C-reactive protein, Chronic obstructive pulmonary disease, Bilateral carotid artery stenosis, Prediabetes, Depressed mood [facility] Office Visit On: 12-Jul-2016 16:35 Encounter Diagnosis: Elevated high sensitivity C-reactive protein, Prediabetes, Vitamin D deficiency, unspecified, Generalized convulsive seizure End: 12-Jul-2016 16:37 [facility] Phone Encounter On: 07-May-2016 14:49 Encounter Diagnosis: Generalized convulsive seizure End: 07-May-2016 15:01 [facility] Office Visit On: 05-May-2016 8:04 Encounter Reason: Physical male exam - General health: feels well with no complaints, has good energy level and is sleeping well. The patient's appetite is normal. Nutrition: normal/adequate. Exercises 5 days per week. S End: 16-May-2016 21:07 leeps on average 7 hours per night. Normal bowel and bladder habits. Safety measures include appropriate use of safety belts and home smoke detectors. Current emotional problems include anxiety and depr ession. The patient's libido is absent. Note for Physical exam: [facility]- dizziness is in general better but still daily headaches- concerns with hearing and short term memory issues - he still not smoking and he writes stuff down - he has trouble with peoples names- not getting lost while driving not getting confused - mostly nuisance - he had lung tests with [facility] and passed oxygen studies , [ADDITIONAL REASON] Follow up, Laboratory Test Results - Date: (04/07/16). Encounter Diagnosis: [facility], Former smoker, BMI 27.0-27.9,adult, Bilateral carotid artery stenosis, Generalized convulsive seizure, Chronic obstructive pulmonary disease, Need for prophylactic vaccination and inoculation against influenza (Renamed from Need for immunization against influenza), Hearing loss, bilateral, Encounter for screening for malignant neoplasm of prostate (Renamed from Screening for prostate cancer), Bradycardia, Vitamin D deficiency, unspecified, Prediabetes, Thyroid nodule, Testicular hypofunction, Dizziness, Chronic daily headache, Elevated high sensitivity C-reactive protein, Memory loss [facility] Office Visit On: 14-Apr-2016 10:50 Encounter Reason: Follow up acute care visit - The patient feeling better since last seen and improving. Patient has been compliant with instructions. Current medication use: no side effects and compliant with dosing reg End: 15-Apr-2016 22:37 imen. The medical issues the patient is following up for include All identified problems below and other (dizziness and low heart rate). Note for Follow up acute care visit: some improvement in dizzy not gone - no cp but does have sob and sob with exertion - guardado but chronic for years no change no vision change no focal weak or numb- Encounter Diagnosis: Bradycardia, Poisoning by phenytoin, accidental or unintentional, subsequent encounter, Dizziness, Short of breath on exertion [facility] Phone Encounter On: 13-Apr-2016 11:34 Encounter Diagnosis: Dilantin toxicity End: 13-Apr-2016 11:37 [facility] Office Visit On: 08-Apr-2016 15:28 Encounter Diagnosis: Dilantin toxicity End: 08-Apr-2016 15:48 [facility] Office Visit On: 07-Apr-2016 15:32 Encounter Diagnosis: Dilantin toxicity End: 07-Apr-2016 15:33 [facility] Visit On: 07-Apr-2016 10:28 Encounter Reason: Dizziness/ - The onset of the dizziness/ has been gradual and has been occurring in a persistent pattern for 5 weeks. The course has been constant. The dizziness/ is characterized as lightheadedness, gi End: 07-Apr-2016 11:46 ddiness and feeling in the head. The dizziness/ is precipitated by position change (throws off his balance). The symptoms have been associated with headache and loss of balance, while the symptoms have not been associated with loss of hearing, nausea, palpitations, syncope or vomiting. Note for Dizziness/: This all started when he quit smoking 5 weeks ago.- felt like this within a few days after donal ting- - happening at any time can be sitting or doing activiity- no cp -- saw jimmy and told close to oxygen and so he finally quit soking but has affected mood- lacking motivation- and touchy- he is exerciising by walking 3 miles a day- not dizzy during and no syncope or cp- told to hold until heart rate issue cleared up Encounter Diagnosis: Dizziness, Bradycardia, Depressed mood [facility] Office Visit On: 17-Dec-2015 10:26 Encounter Reason: Follow up for chronic medical issues - The patient feels well with no complaints, has good energy level and is sleeping well. Patient has been compliant with instructions. Current medication use: no deyvi End: 18-Dec-2015 22:33 e effects and compliant with dosing regimen. Patient sleeps 7 hours per night. Nutrition: balanced diet. The medical issues the patient is following up for include All identified problems below, COPD, o steoporosis/osteopenia and other (vit d deficiency, STEPHANY, seizure disorder, testicular hypofunction). Note for Follow up for chronic medical issues: on new inhaler from [facility]- is helping not sure ins urance going to cover-bp is good-did get colosnocopy last month had tubular adenoma and recheck 5 years- still smoking, [ADDITIONAL REASON] Follow up, Laboratory Test Results - Date: (12/10/15). Encounter Diagnosis: Seizure disorder, Current smoker, Osteoporosis, Bilateral carotid artery stenosis, Vitamin D deficiency, unspecified, Chronic obstructive pulmonary disease, Screening for prostate cancer [facility] Historical Summary On: 21-Nov-2015 13:35 [facility] End: 21-Nov-2015 13:36 Office Visit On: 23-Oct-2015 11:21 Encounter Reason: Nurse procedure visit - Reason for visit: six minute walk test. Note for Nurse procedure visit: This is being done for copd. Pt also was given Overnight Pulse ox A to take home and will bring back tomorrow morning. End: 23-Oct-2015 13:22 Encounter Diagnosis: Chronic obstructive pulmonary disease [facility] Office Visit On: 08-Aug-2015 10:48 Encounter Reason: Annual Medicare Exam - The patient had reviewed and updated the family history, medication/s, past medical history and social history. Yes the patient did have (- alert) a mini mental status exam d End: 10-Aug-2015 23:37 one today. The activities of daily living the patient needs help with are none. The patient has driven in past 6 months and put area rugs through house, but the patient has not had fecal incontinence, h ad urinary incontinence, missed or ran out of medications to soon, fallen in the past 6 months, gotten lost, has a medalert necklace or bracelet or put handrails in bathroom. The patient has completed t he following preventative measures: PSA testing (01/2015) and colonoscopy (10/2012 and due in 10/2015). The patient does not have durable power of manager managed backup services or living will. The patient has noticed staying a t home rather than doing something new or going out. Other providers contributing to the patient's care are other: (Eye redd [facility]ar). Note for Annual Medicare Exam: retired officially - and bp is good, [ADDITIONAL REASON] Follow up for chronic medical issues - The patient feels well with no complaints (would like to go over results. Would like to talk about Zostavax as well.), has good energy level a nd is sleeping well. Patient has been compliant with instructions. Current medication use: no side effects and compliant with dosing regimen. Patient sleeps 7 hours per night. Nutrition: balanced diet. The medical issues the patient is following up for include All identified problems below, COPD, osteoporosis/osteopenia and other (vit d deficiency, STEPHANY, seizure disorder, testicular hypofunction). , [ADDITIONAL REASON] Follow up, Laboratory Test Results - Date: (08/19/15). Encounter Diagnosis: Medicare annual wellness visit, initial, Seizure disorder, Chronic obstructive pulmonary disease, Colon Polyp, Bilateral carotid artery stenosis, Vitamin D deficiency, unspecified, Osteoporosis, Need for prophylactic vaccination and inoculation against influenza (Renamed from Need for immunization against influenza), Encounter for screening for malignant neoplasm of prostate (Renamed from Screening for prostate cancer), Current smoker [facility] Office Visit On: 11-Apr-2015 10:19 Encounter Reason: Mouth Pain - Symptoms include mouth lesions. Symptoms are located in the generalized location. There is no radiation. The patient describes the pain as dull and aching. Onset was sudden 1 week(s) ago.Encounter Diagnosis: End: 11-Apr-2015 10:37 Aphthous ulcer [facility] Office Visit On: 17-Feb-2015 13:49 Encounter Reason: Follow up tests - Date: (January 2015 blood work and bone density)., [ADDITIONAL REASON] Follow up for chronic medical issues - The patient feels well with no complaints End: 17-Feb-2015 22:56 (would like to go over results. Would like to talk about Zostavax as well.), has good energy level and is sleeping well. Patient has been compliant with instructions. Current medication use: no side ef fects and compliant with dosing regimen. Patient sleeps 7 hours per night. Nutrition: balanced diet. The medical issues the patient is following up for include All identified problems below, COPD, osteo porosis/osteopenia and other (vit d deficiency, STEPHANY, seizure disorder, testicular hypofunction). Note for Follow up for chronic medical issues: hemoglobin slightly down no blood in stool or change in bowels- retireing next week- breathing same- smoking same - weight down 13 pounds and trying and doing more work outdoors Encounter Diagnosis: COPD (496.), Hypoglycemia, Testicular hypofunction, VITAMIN D DEFICIENCY, NOS (268.9), Seizure disorder, Osteoporosis (733.00), Carotid Stenosis (433.10), Colon Polyp, SHINGLES,NEED FOR PROPHYLACTIC VACCINATION AND INOCULATION AGAINST (V05.8) [facility] Office Visit On: 07-Oct-2014 8:35 Encounter Reason: Follow up tests - Date: (09/25/14 carotid duplex and holter monitor....(scanned into documents)blood work). Note for Discuss procedure results: he is down to lesx than 1/2 a pack a day smoking - trying End: 07-Oct-2014 9:12 to quit using nictone gum- considering requiring- his carotids reeviewed talked about aspirin a day - he is doing 4 tabs a day of phenobarb- last seizure 1990- no issues with atelvia Encounter Diagnosis: Seizure disorder, Carotid Stenosis (433.10), Osteoporosis (733.00), SCREENING FOR CANCER OF THE PROSTATE (V76.44) [facility] Phone Encounter On: 06-Sep-2014 15:46 Encounter Diagnosis: Seizure disorder End: 06-Sep-2014 15:50 [facility] Phone Encounter On: 06-Sep-2014 10:57 Encounter Diagnosis: CARDIAC DYSRHYTHMIA (427.9) End: 06-Sep-2014 11:03 [facility] Office Visit On: 03-Jul-2014 11:21 Encounter Reason: Cold Symptoms - Symptoms include nasal congestion, runny nose, scratchy throat, productive cough, facial pressure, facial pain and headache, while symptoms do not include sore throat. Onset was sudden 1 End: 04-Jul-2014 11:34 week(s) ago. Onset followed exposure to someone at work with upper respiratory symptoms. The symptoms occur constantly. The patient describes this as worsening. Associated symptoms include fatigue, whi le associated symptoms do not include ear pain, wheezing, shortness of breath, nausea, vomiting, diarrhea, fever or chills. The patient is not currently being treated for this problem. Note for Cold sy mptoms: achy- and having lightheaded - - he got up in middle of night to go to bathroom and got up quick lightheaded- he fell lost balance didnt pass out no headache but pressure sinus- no chest pain- no increase sob - alot of cough prod clear no fever - using otc cold and sinusEncounter Diagnosis: Need for prophylactic vaccination and inoculation against influenza (Renamed from Need for immunization against influenza), Upper Respiratory Infection (Renamed from Infection of the upper respiratory tract), COPD (496.) [facility] Office Visit On: 30-May-2014 13:14 Encounter Reason: Skin Problems - The onset of the skin problems has been sudden and they have been occurring in a persistent pattern for 4 days. The course has been constant. The problem is characterized as a change in End: 30-May-2014 14:07 skin color. There has been no associated itching or pain.Encounter Diagnosis: Ear pain, left, Sebaceous cyst of ear [facility] Phone Encounter On: 26-Mar-2014 9:51 Encounter Diagnosis: Generalized convulsive seizure End: 26-Mar-2014 10:00 [facility] Historical Summary On: 15-Mar-2014 14:31 Encounter Diagnosis: Seizure disorder End: 15-Mar-2014 14:32 [facility] Office Visit On: 15-Mar-2014 7:12 Encounter Reason: Follow up for chronic medical issues - The patient feels well with no complaints, has good energy level and is sleeping well. Patient has been compliant with instructions. Current medication use: no deyvi End: 15-Mar-2014 8:23 e effects and compliant with dosing regimen. Patient sleeps 7 hours per night. Nutrition: balanced diet. The medical issues the patient is following up for include All identified problems below, COPD, o steoporosis/osteopenia and other (vit d deficiency, STEPHANY, seizure disorder, testicular hypofunction). Note for Follow up for chronic medical issues: no chest pain no gerd or dysphagia and no change in breathing- - his bp and vit d is good - no seizure, [ADDITIONAL REASON] Follow up, Laboratory Test Results - Date: (02/28/14). Encounter Diagnosis: Seizure disorder, Osteoporosis (733.00), Carotid Stenosis (433.10), VITAMIN D DEFICIENCY, NOS (268.9) , Colon Polyp, COPD (496.), CARDIAC DYSRHYTHMIA (427.9) [facility] Office Visit On: 08-Oct-2013 8:59 Encounter Reason: Cold Symptoms - Symptoms include sneezing, runny nose, scratchy throat and dry cough. Onset was sudden day(s) ago. There is no known event that preceded symptom onset. The symptoms occur constantly. The End: 08-Oct-2013 9:40 patient describes this as moderate in severity and worsening. Associated symptoms include fatigue and fever (lowgrade).Encounter Diagnosis: Body aches, Congestion of nasal sinus, Cough, Pharyngitis, Tobacco Cessation (305.1) [facility] Office Visit On: 14-Sep-2013 7:17 Encounter Reason: Follow up for chronic medical issues - The patient feels well with minor complaints (allergic reactions to Nicotene patches), has good energy level and is sleeping well. Patient has been compliant with End: 14-Sep-2013 8:54 instructions. Current medication use: no side effects and compliant with dosing regimen. Patient sleeps 7 hours per night. Nutrition: balanced diet. The medical issues the patient is following up for in clude All identified problems below, COPD, osteoporosis/osteopenia and other (vit d deficiency, STEPHANY, seizure disorder, testicular hypofunction)., [ADDITIONAL REASON] Follow up, Laboratory Test Results - Date: (06/27/13). , [ADDITIONAL REASON] Allergic Reaction - Adult - Symptoms include rash and itching (skin), while symptoms do not include generalized edema, itchy throat, difficulty swallowing, lip swelling or shortness of breath. The rash is located on the arm(s). The rash is described as red. Onset was sudden. Onset followed taking a medication (nicotene). Associated symptoms do not include nasal congestion, tongue swelling, nausea, vomiting or diarrhea. Encounter Diagnosis: Seizure disorder, COPD (496.), Need for prophylactic vaccination and inoculation against influenza (V04.81), Allergic reaction, Carotid Stenosis (433.10), VITAMIN D DEFICIENCY, NOS (268.9), Osteoporosis (733.00), SCREENING FOR CANCER OF THE PROSTATE (V76.44) [facility] Office Visit On: 17-Jan-2013 9:11 Encounter Reason: Follow up for chronic medical issues - The patient feels well with no complaints, has good energy level and is sleeping well. Patient has been compliant with instructions. Current medication use: no deyvi End: 18-Jan-2013 21:33 e effects and compliant with dosing regimen. Patient sleeps 7 hours per night. Nutrition: balanced diet. The medical issues the patient is following up for include All identified problems below, COPD, o steoporosis/osteopenia and other (vit d deficiency, STEPHANY, seizure disorder, testicular hypofunction). Note for Follow up for chronic medical issues: No routine labs done for today. fosamax gave him gerd- he really doesnt want to take testoerone Encounter Diagnosis: Osteoporosis (733.00), Colon Polyp, VITAMIN D DEFICIENCY, NOS (268.9), COPD (496.), Carotid Stenosis (433.10), PERIPHERAL VASCULAR DISEASE (Renamed from Peripheral blood vessel disorder), Testicular hypofunction, Seizure disorder [facility] Office Visit On: 26-Nov-2012 20:38 Encounter Diagnosis: Colon Polyp (211.3) End: 26-Nov-2012 20:39 [facility] Office Visit On: 20-Sep-2012 15:04 Encounter Reason: Follow up for chronic medical issues - The patient feels well with minor complaints. Patient has been compliant with instructions. Current medication use: no side effects. Patient sleeps 7 hours per nig End: 21-Sep-2012 22:04 ht. Nutrition: balanced diet. Note for Follow up for chronic medical issues: he is down to 1 cig or less a day- feelling pretty well- and bp is good - no zeizure- left heel hurts when sits down , [ADDITIONAL REASON] Follow up, Laboratory Test Results - Date: (08/17/12). Encounter Diagnosis: Seizure disorder, Plantar Fascititis (728.71), VITAMIN D DEFICIENCY, NOS (268.9), COPD (496.), Osteoporosis (733.00), Tobacco Cessation (305.1) [facility] Phone Encounter On: 09-Aug-2012 10:43 Encounter Diagnosis: VITAMIN D DEFICIENCY, NOS (268.9), Seizure disorder, SCREENING FOR CANCER OF THE PROSTATE (V76.44), AFTERCARE, LONG-TERM USE, MEDICATIONS NEC (V58.69) End: 09-Aug-2012 17:05 [facility] Annotation/Addendum On: 08-Mar-2012 9:31 Encounter Diagnosis: AFTERCARE, LONG-TERM USE, MEDICATIONS NEC (V58.69) End: 08-Mar-2012 9:35 [facility] Phone Encounter On: 25-Feb-2012 13:56 Encounter Diagnosis: AFTERCARE, LONG-TERM USE, MEDICATIONS NEC (V58.69) End: 25-Feb-2012 13:58 [facility] Office Visit On: 24-Feb-2012 9:03 Encounter Reason: Nurse procedure visit - Reason for visit: six minute walk test.Encounter Diagnosis: COPD (496.) End: 24-Feb-2012 22:07 [facility] Office Visit On: 26-Jan-2012 16:05 Encounter Reason: Follow up for chronic medical issues - The patient feels well with no complaints, has good energy level and is sleeping well. Patient has been compliant with instructions. Current medication use: no deyvi End: 27-Jan-2012 22:59 e effects and compliant with dosing regimen. Patient sleeps 7 hours per night. Nutrition: inappropriate diet, supplemental vitamins and low salt diet. The medical issues the patient is following up for include All identified problems below, COPD, osteoporosis/osteopenia and other (testicular hypofunction, vitamin d deficient, seizure disorder, Peyronie's dz). Note for Follow up for chronic medical is sues: Pt says he had a cold since last tuesday but is resolving and doesnt feel it needs addressed. No colored drainage or sputum.- no seizure issues and thinks lesion of foot smaller and no pain- no is sues with sugar- didnt quit smoking - not much change in breahting, [ADDITIONAL REASON] Follow up, Laboratory Test Results - Date: (01/12/12). , [ADDITIONAL REASON] Follow up, Diagnostic Procedure Results - Diagnostic tests include MRI (right mi dfoot). Date: (12/24/11). Encounter Diagnosis: Seizure disorder, COPD (496.), Tobacco Cessation (305.1), VITAMIN D DEFICIENCY, NOS (268.9) [facility] Office Visit On: 21-Jul-2011 9:33 Encounter Reason: Follow up for chronic medical issues - The patient feels well with minor complaints (skin lesion on bottom of right foot), has good energy level and is sleeping well. Patient has been compliant with ins End: 21-Jul-2011 13:19 tructions. Current medication use: no side effects and compliant with dosing regimen. Patient sleeps 7 hours per night. Nutrition: inappropriate diet, supplemental vitamins and low salt diet. The medica l issues the patient is following up for include All identified problems below, COPD, osteoporosis/osteopenia and other (testicular hypofunction, vitamin d deficient, seizure disorder, Peyronie's dz). N ote for Follow up for chronic medical issues: weight down but dog has been sick for 6 mos so has been stressful- hasnt been back with sibilia- jaci hasnt quit smoking and is going to try this weeke nd- he is going to try patches- and get cigs- no seizures and bp is good, [ADDITIONAL REASON] Follow up, Laboratory Test Results - Date: (07/06/11). , [ADDITIONAL REASON] Skin Lesions - Symptoms include single skin lesion. Lesion location includes the right foot (bottom). The patient describes the lesion(s) as painful (with pressure). Onset was gradu al month(s) ago. There is no known event that preceded symptom onset. The symptoms occur constantly. The patient describes this as mild and unchanged. Symptoms are exacerbated by pressure. Associated sy mptoms do not include fever or malaise. The patient is not currently being treated for this problem. Encounter Diagnosis: Seizure disorder, Need for prophylactic vaccination and inoculation against influenza (V04.81), Testicular hypofunction (257.2) , COPD (496.), Hypoglycemia (251.2), VITAMIN D DEFICIENCY, NOS (268.9), Osteoporosis (733.00), soft tissue tumor right foot [facility] Phone Encounter On: 12-Apr-2011 18:11 Encounter Diagnosis: Seizure disorder End: 12-Apr-2011 18:13 [facility] Phone Encounter On: 12-Feb-2011 16:03 Encounter Diagnosis: Seizure disorder End: 12-Feb-2011 16:05 [facility] Office Visit On: 10-Feb-2011 15:48 Encounter Reason: Follow up for chronic medical issues - The patient feels well with no complaints, has good energy level and is sleeping well. Patient has been compliant with instructions. Current medication use: no deyvi End: 10-Feb-2011 16:43 e effects and compliant with dosing regimen. Patient sleeps 7 hours per night. Nutrition: inappropriate diet, supplemental vitamins and low salt diet. The medical issues the patient is following up for include All identified problems below, COPD, osteoporosis/osteopenia and other (testicular hypofunction, vitamin d deficient, seizure disorder, Peyronie's dz). 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 General health: feels well with no complaints, has good energy level and is sleeping well. The patient's appetite is normal. Nutrition: emy End: 17-Jun-2010 8:16 l/adequate. Exercises 0 days per week. Sleeps on average 7 hours per night. Elimination problems include urinary frequency (hs- 2 to 3 timesduring day- alot). Safety measures include appropriate use of safety belts and home smoke detectors. There are no current emotional problems. The patient's libido is decreased (E.D.). Preventative measures done by patient are screening, visual acuity (2009), PSA ( years ago) and rectal exam (years ago). Note for new patient male physicial: last seizure 1991- diagnosed with epilepsy age 19- grandmal seizures- was on fosamax- and gave him terrible reflux no bone denstiy for several years- interested in quitting smokingEncounter Diagnosis: COPD (496.), Hypoglycemia (251.2), Constipation(564.00), Osteoporosis (733.00), Seizure disorder, SOB (786.05), Peyronie's disease (607.85) [facility] Payers MedicareUSAA DyMyndCHELI NEUMANN; a guarantor
--- OUTSIDE RECORDS SUMMARY | 2018-09-24 08:43 | XMS RPT_ITS | Continuity of Care Document ---
:1950 Author Organization [facility] Address [address] [place] [address] Phone Care Team Providers Name Role Phone Jessica Limon DO Unavailable Dr. Landon Werner Unavailable [facility], [facility] Unavailable Dr. Jeremiah Banegas Unavailable Anneliese Stover [...] Medications Name Dates Details CALTRATE 600+D PLUS, [id number] (Oral Tablet) Active 1 tab bid (600-400 [...] Procedures Procedure Dates Details [place] ([address]) Date: 17-Feb-2015 Completed 17-Feb-2015 Appendectomy Completed Colonoscopy Completed 04-Nov-2015 Comments: Within Normal Limits. Small adenoma removed- repeat in 5 years Tonsillectomy Completed Date Value Details 23-May-2018 PT D/C Summary (1) Result: Comments: See Note; NOTES: [facility] Physical Therapy [facility] [address] [place] [address] Fax REHABILITATION SERVICES [facility] SUMMARY MR#: [id number] Acct: [id number] Name: CHELI NEUMANN Rep #: [id number] [...] PAIN. DOING HEP BUT HASN'T GONE TO [facility] BUT PLANS TO WHEN GOLFING SEASON IS OVER. PATIENT STATES HE DOESN'T THINK HE H TAKEN ANY ADVIL FOR ABOUT A MONTH. DRIVING TO [place] FOR GOLF OUTING FOR A WEEK 35 [...] please feel free to call me at [phone]. Thank you for the referral of this patient. Rose Butetrfield <Electronically signed by Rose Colunga PT, Cert. MDT> 05/23/18 1303 CC: Jessica Limon DO ANDREA Signed 18-Apr-2018 Re-Evaluation - PT (1) Result: Comments: See Note; NOTES: [facility] Physical Therapy [facility] [address] [place] [address]. [address] [place], [place] [address] Fax REEVALUATION / MEDICARE RECERTI [facility] PHYSICAL THERAPY MR#: [id number] Acct: [id number] Name: CHELI NEUMANN Rep #: [id number] : 1950 67 From: Rose Colunga PT, [...] REPORTS HE IS A MEMBER AT THE [employer]. STILL FEELING A LITTLE BIT OF TIGHTNESS [...] do not hesitate to contact me at [phone] by phone or if you have questions or concerns regarding this new plan of care! Sincerely, Rose Colunga <Electronically signed by Vicente Colunga PT, Cert. MDT> 04/18/18 1436 CC: Jessica Limon DO ANDREA Signed For Medicare only, by signing this I certify the plan of care. Physicians Signature Date 28-Mar-2018 Inital Evaluation (1) - PT Result: Comments: See Note; NOTES: [facility] Physical Therapy [facility] [address] [place] [address] Fax REHABILITATION SERVICES INITIAL EVALUATION MR#: [id number] Acct: [id number] Name: CHELI NEUMANN Rep #: [id number] : 1950 67 From: Rose Colunga PT, [...] of: NO APPARENT REASON BUT DROVE TO [place] FOR A GOLF CL ASS. [...] to be FAXED BACK to us at [phone] for Medicare pur poses. Please let me know if there are questions or concerns regarding this plan of care. Physician Signature: Date: <Electronic ally signed by Rose Colunga PT, Cert. T> 03/28/18 1411 CC: Jessica Limon DO ANDREA Signed For Medicare only, by signing this I certify the plan of care. Physicians Signature Date 24-Mar-2018 Carotid Duplex Ultrasound Result: Comments: See Note; NOTES: [facility] Cardiovascular Services [address] [place] [address] Carotid Duplex Ultrasound 03/20/18 0956 MR#: [id number] Acct: [id number] Name: CHELI NOWAK Rep #: [id number] : 1950 67 From: David Mo MD Attending Dr: Jessica Limon DO Status: REG CLI Ordering Dr: Jessica Limon DO Date: 03/20/18 Location: [facility] Sex: M C Admitted: Reason For Study: [...] the left vertebral artery. Procedure Carotid Duplex 40187. Exam performed in department. Interpretation Sum lester No significant atherosclerotic plaque or stenosis noted in the right internal carotid artery. Mild (<50%) stenosis left extracranial internal carotid. Flow within the vertebral arteries is antegrade bilaterally. Ordering Physician: Jessica Limon Referring Physician: Jessica Limon ed By: Bethany Brar RVT 03/24/18728 Date David Mo MD CC: Jessica Limon DO Date Dictated: 03/20/1856 Date Transcribed: 03/24/18728 Fondant Puff Maker: Signed 21-Mar-2018 L/S Spine Min 4 Views Result: Comments: See Note; NOTES: [facility] Imaging Services [address] [place] [address] L/S Spine Min 4 Views MR#: [id number] Acct: [id number] Name: THIENCADE Rep #: [id number] : 1950 67 From: Phil Lazcano MD PCP: Jessica Limon DO Status: REG CLI Study: L/S Spine Min 4 Views Date of Exam: 03/21/18 Exam# [id number] Ordering Dr: Jessica Limon DO STUDY: X-RAY [...] Service support , CC: Jessica Limon DO Fondant Puff Maker: Signed 16-Feb-2018 Chest without Contrast Result: Comments: See Note; NOTES: [facility] Imaging Services [address] [place] [address] Chest without Contrast MR#: [id number] Acct: [id number] Name: CHELI NEUMANN A Rep #: [id number] : 1950 M 67 From: Kali Diaz MD PCP: Jessica Limon DO Status: REG CLI Study: Chest without Contrast Date of Exam: 02/16/18 Exam# [id number] Ordering Dr: Carlos Bowers MD STUDY: CT [...] CC: Jessica Limon DO; Carlos Bowers MD Fondant Puff Maker: Signed 16-Nov-[address] Lung Screening Result: Comments: See Note; NOTES: [facility] Imaging Services [address] [place] [address] Lung Screening MR#: [id number] Acct: [id number] Name: CHELI NEUMANN Rep #: [id number] : 1950 M 66 From: Charbel Cunha MD PCP: Jessica Limon DO Status: [place] CLI Study: Low Dose CT Lung Screening Date of Exam: 11/16/17 Exam# [id number] Ordering Dr: Carlos Bowers MD STUDY: LOW [...] Charbel Cunha MD at 10:24 EDT Tel [phone], Service suppo rt , CC: Jessica Limon DO; Carlos Bowers MD Fondant Puff Maker: Signed 22-Jun-2017 Thyroid Result: Comments: See Note; NOTES: [facility] Imaging Services [address] [place] [address] Thyroid MR#: [id number] Acct: [id number] Name: CHELI NEUMANN Rep #: [id number] : [birth year] M 66 From: Kali Diaz MD PCP: Jessica Limon DO Status: REG CLI Study: Thyroid Date of Exam: 06/22/17 Exam# [id number] Ordering Dr: Jessica Limon DO STUDY: THYROID [...] Service support , CC: Jessica Limon DO Fondant Puff Maker: Signed 16-Mar-2017 Finger(s) Min 2 Views Result: Comments: See Note; NOTES: [facility] Imaging Services [address] [place] [address] Verdana 4d Finger(s) Min 2 Views MR#: [id number] Acct: [id number] Name: CHELI NEUMANN Re p #: [id number] : 1950 M 66 From: Chas Kulkarni MD PCP: Jessica Limon DO Status: REG CLI Study: Finger(s) Min 2 Views Date of Exam: 03/16/17 Exam# [id number] Ordering Dr: Jessica Limon DO STUDY: X- [...] Service support , CC: Jessica Limon DO Fondant Puff Maker: Signed 16-Mar-2017 Knee 4 or More Views Result: Comments: See Note; NOTES: [facility] Imaging Services [address] [place] [address] Verdana 4d Knee 4 or More Views MR#: [id number] Acct: [id number] Name: THIENCHELICADE Rep #: [id number] : 1950 M 66 From: Chas Kulkarni MD PCP: Jessica Limon DO Status: REG CLI Study: Knee 4 or More Views Date of Exam: 03/16/17 Exam# [id number] Ordering Dr: Jessica Limon DO STUDY: X-RA [...] Service support , CC: Jessica Limon DO Fondant Puff Maker: Signed 01-Feb-2017 DXA BONE DENS W/VERT FX ASMT Result: Comments: See Note; NOTES: [facility] Imaging Services [address] [place] [address] Verdana 4d DXA BONE DENS W/VERT FX ASMT MR#: [id number] Acct: [id number] Name: IRVING NEUMANN Rep #: [id number] : 1950 [facility] From: Charbel Cunha MD PCP: Jessica Limon DO Status: REG CLI Study: DXA BONE DENS W/VERT FX ASMT Date of Exam: 02/01/17 Exam# [id number] Ordering Dr: Marcelino Limon DO STUDY: DUAL [...] Charbel Cunha MD at 12:41 EDT Tel [phone], Service support , Fax CC: Jessica Limon DO Fondant Puff Maker: Signed 01-Dec-2016 Carotid Duplex Ultrasound Result: Comments: See Note; NOTES: [facility] Cardiovascular Services [address] [place] [address] Carotid Duplex Ultrasound 11/29/16 0940 MR#: [id number] Acct: [id number] Name: CHELI NOWAK Rep #: [id number] : 1950 66 From: René Aiken MD Attending Dr: Jessica Limon DO Status: REG CLI Ordering Dr: Jessica Limon DO Date: 11/29/16 Location: [facility] Sex: M C Admitted: [facility] n For Study: Carotid stenosi Rt. Velocities/BP [...] the left vertebral artery. Procedure Carotid Duplex 31567. Exam performed in department. Interpretation Summary Mild (<50% ) stenosis right extracranial internal carotid. Mild (<50%) stenosis left extracranial internal carotid. Flow within the vertebral arteries is antegrade bilaterally. Ordering Physician: Jessica Limon Performed By: Bethany Brar RVT 12/01/16 1035 Date René Aiken MD CC: Jessica Limon DO Date Dictated: 11/29/16 0940 Date Transcribed: 12/01/16 1035 Fondant Puff Maker: Signed 10-May-2016 Brain/Head W/WO Contrast Result: Comments: See Note; NOTES: [facility] Imaging Services [address] [place] [address] [place] [address] Verdana 4d Brain/Head W/WO Contrast MR#: [id number] Acct: [id number] Name: CHELI NEUMANN Rep #: [id number] : 1950 M 65 From: Chas Kulkarni MD PCP: Jessica Limon DO Status: REG CLI Study: Brain/Head W/WO Contrast Date of Exam: 05/10/16 Exam# [id number] Ordering Dr: Jessica Limon TUDY: CT BRAIN [...] MD at 21:50 EDT , Service support [phone], CC: Jessica Limon DO Fondant Puff Maker: Signed 06-May-2016 Thyroid Result: Comments: See Note; NOTES: [facility] Imaging Services [facility] [place] [address] Verdana 4d Thyroid MR#: [id number] Acct: [id number] Name: CHELI NEUMANN Rep #: [id number] : 1950 M 65 From: Giorgio Hernandez MD PCP: Jessica Limon DO Status: REG CLI Study: Thyroid Date of Exam: 05/06/16 Exam# [id number] Ordering Dr: Jessica Limon DO STUDY: THYROID [...] at 7:32 EDT Tel , Service support [phone], F ax [phone] CC: Jessica Limon DO Fondant Puff Maker: Signed 20-Apr-2016 Echocardiogram Complete Result: Comments: See Note; NOTES: [facility] Cardiovascular Services [address] [place] [address] Echo Complete 04/20/16 0829 MR#: [id number] Acct: [id number] Name: CHELI NEUMANN Rep #: [id number] : 1950 65 From: Neeraj Porter MD Attending Dr: Jessica Limon DO Status: REG CLI Ordering Dr: Jessica Limon DO Date: 04/20/16 Location: [facility] Sex: M C Admitted: Reason For Stud [...] DO Date Dictated: 828 Date Transcribed: 04/20/161336 Fondant Puff Maker: Signed 20-Apr-2016 Nuclear Stress Test - Treadmil Result: Comments: See Note; NOTES: [facility] Imaging Services [address] [place] [address] Verdaamada 4d Nuclear Stress Test - Treadmil MR#: [id number] Acct: [id number] Name: CHELI NEUMANN Rep #: [id number] : 1950 65 From: Neeraj Porter MD [...] 68%. Neeraj Porter MD T: NTS JOB: [id number] 04/21/16 1019 <Electronically signed by Neeraj Porter MD> Date Neeraj Porter MD CC: Jessica Limon DO Date Dictated: 04/20/1650 Date Transcribed: 04/20/16849 Fondant Puff Maker: Signed 07-Apr-2016 ELECTROCARDIOGRAM, COMPLETE (ECG) (02010) Comments: severe sinus lokesh- otherwise normal sinus- normal axis no acute st t wave changes Result: [MEASUREMENTS ANALYSIS] Date of Test: 04/07/2016 11:15:52; Heart Rate: 39; WI Interval: 192; QRS: 96; QT Interval: 462; Corrected QT Interval (QTc): 426; P Wave [place]: 69; QRS Wave [place]: 66; T Wave [place]: 50; Blood Pressure: 114/68 [ECG DIAGNOSTIC STATEMENTS] Date of Test: 04/07/2016 11:15:52; Summary: Marked sinus Bradycardia -With rate variation cv = 10.Low voltage in limb leads. ABNORMAL [MEASUREM ENTS ANALYSIS] Date of Test: 04/07/2016 11:14:53; Heart Rate: 41; WI Interval: 188; QRS: 96; QT Interval: 458; Corrected QT Interval (QTc): 425; P Wave [place]: 90; QRS Wave [place]: 65; T Wave [place]: 49; Bloo d Pressure: 114/68 [ECG DIAGNOSTIC STATEMENTS] Date of Test: 04/07/2016 11:14:53; Summary: Marked sinus Bradycardia -With rate variation cv = 22.Low voltage in limb leads. ABNORMAL 12-Dec-2015 Carotid Duplex Ultrasound Result: Comments: See Note; NOTES: [facility] Cardiovascular Services [address] [place] [address] Carotid Duplex Ultrasound 12/10/15 0904 MR#: [id number] Acct: [id number] Name: CHELI NEUMANN Rep #: [id number] : 1950 65 From: René Aiken MD [...] the left vertebral artery. Procedure Carotid Duplex 87839. The exam was diagnostic. Exam performed in [...] DO Date Dictated: 12/10/1504 Date Transcribed: 12/12/151751 Fondant Puff Maker: Signed 10-Dec-2015 Aorta Result: Comments: See Note; NOTES: [facility] Imaging Services [address] [place] [address] Darnelldana 4d Aorta MR#: [id number] Acct: [id number] Name: CHELI NEUMANN Rep # : [id number] : 1950 M 65 From: Charbel Cunha MD PCP: Jessica Limon DO Status: REG CLI Study: Aorta Date of Exam: 12/10/15 Exam# [id number] Ordering Dr: Jessica Limon DO PROCEDURES: ULTRA [...] Cristina i, MD at 10:18 EDT Tel [phone], Service support [phone], CC: Jessica Limon DO Fondant Puff Maker: Signed 23-Oct-2015 Spirometry (39848) Result: 08-Aug-2015 ELECTROCARDIOGRAM, COMPLETE (ECG) (91974) Comments: ekg showed normal sinus rhythym, normal axis, no acute st/t wave changes Result: [MEASUREMENTS ANALYSIS] Date of Test: 08/08/2015 11:57:53; Heart Rate: 57; WI Interval: 192; QRS: 94; QT Interval: 428; Corrected QT Interval (QTc): 423; P Wave [place]: 78; QRS Wave [place]: 76; T Wave [place]: 47; Blood Pressure: 120/72 [ECG DIAGNOSTIC STATEMENTS] Date of Test: 08/08/2015 11:57:53; Summary: Sinus Bradycardia Low voltage in limb leads. ABNORMAL 30-Jan-2015 Dexa Bone Density Study (HP) Result: Comments: See Note; NOTES: [facility] Imaging Services [address] [place] [address] Bone Density Report MR#: [id number] Acct: [id number] Name: CHELI NEUMANN Rep #: [id number] : 1950 M 64 From: Charbel Cunha MD PCP: Jessica Limon DO Status: REG CLI Study: Dexa Bone Density Study (HP) Date of Exam: 01/30/15 Exam# [id number] Ordering Dr: Jessica Limon DO STUDY: DUAL [...] Charbel Cunha MD at 15:54 EDT Tel [phone], Service support [phone], CC: Jessica Limon DO Fondant Puff Maker: Signed 25-Sep-2014 Carotid Duplex Ultrasound Result: Comments: See Note; NOTES: [facility] Cardiovascular Services [address] [place] [address] Carotid Duplex Ultrasound 09/25/14 0850 MR#: [id number] Acct: [id number] [facility] e: CHELI NEUMANN Rep #: [id number] : 1950 63 From: René Aiken MD Attending Dr: Jessica Limon DO Status: REG CLI Ordering Dr: Jessica Limon DO Date: 09/25/14 Location: [facility] Sex: M C Admitted : Rt. Velocities/BP [...] in the left bulb. Procedure Carotid Duplex 16639. Exam performed in department. Interpretation Summary Mild (<50%) stenosis right extracranial internal carotid. Mild (<50%) stenosis left extracranial internal carotid. Flow w ithin the vertebral arteries is antegrade bilaterally. Ordering Physician: Jessica Limon Perform ed By: Lynn Granados RDCS 09/25/14 1044 Date René Aiken MD CC: Jessica Limon DO Date Dictated: 09/25/14 0850 Date Transcribed: 09/25/14 1044 Fondant Puff Maker: Signed 15-Mar-2014 EKG (17485) Comments: ekg showed rhythym with periods of irregular rhythm- not afib, normal axis, no acute st/t wave changes Result: [MEASUREMENTS ANALYSIS] Date of Test: 03/15/2014 07:58:47; Heart Rate: 57; WI Interval: 202; QRS: 98; QT Interval: 412; Corrected QT Interval (QTc): 407; P Wave [place]: 90; QRS Wave [place]: 62; T Wave [place]: 52; Blood Pressure: 126/78 [ECG DIAGNOSTIC STATEMENTS] Date of Test: 03/15/2014 07:58:47; Summary: Sinus Bradycardia - occasional ectopic ventricular beat Low voltage in limb leads. -RSR(V1) -nondiagnostic. ABNORMAL Immunization Name Dates Details Zoster (shingles) on: 17-Feb-2015 Comments: Site: Posterior Upper Arm (Left) Lot #: [id number] Family History Unknown Family Member Name Dates [...] kg/m2 Body Surface Area Calculated 2.13 m2 31-Riv-939988:27 Temperature 97.2 f Comments: Method: Temporal Pulse [...] kg/m2 Body Surface Area Calculated 2.1 m2 75-Sfm-858989:57 Pulse 64 /min Comments: Pattern: Regular Respiration [...] Comments: PATIENT WAS FASTINGPERFORMED BY: MARY ANNE [employer] [facility] [id number] ALT (SGPT) 26 [iU]/L (Normal) Range: 0-44 [...] mg/dL (Normal) Range: 65-99 :32 DRUG ASSAY-PHENOBARBITOL (11517) Comments: PATIENT WAS FASTINGPERFORMED BY: [facility] [facility] [id number] Phenobarbital, Serum 18 ug/mL (Normal) Range: 15-40 Comments: Detection Limit = 3 :32 Phenytoin (Dilantin) (75766) Comments: PATIENT WAS FASTINGPERFORMED BY: [facility] [id number] Phenytoin (Dilantin), Serum 12.2 ug/mL (Normal) Range: 10.0-20.0 Comments: Detection Limit = 0.8 <0.8 Indicates None Detected :32 MICROALBUMIN: CREATININE RATIO Comments: PATIENT WAS FASTINGPERFORMED BY: [facility] [facility] [id number] (16779) AND (00428) Alb/Creat Ratio <4.3 {mg/g_creat} (Normal) Range: 0.0-30.0 Albumin, Urine <3.0 ug/mL (Normal) Creatinine, Urine 70.5 mg/dL (Normal) :32 METABOLIC PANEL, COMPREHENSIVE Comments: PATIENT WAS FASTINGPERFORMED BY: [facility] [id number] (57822) ALT (SGPT) 16 [iU]/L (Normal) Range: 0-44 [...] DIFF WBC Comments: PATIENT WAS FASTINGPERFORMED BY: [facility] [facility] [id number] Information: [id number] (38384) Immature Grans (Abs) 0.0 {x10E3/uL} (Normal) Range: [...] {x10E3/uL} (Normal) Range: 3.4-10.8 :32 HGB A1C (78158) Comments: PATIENT WAS FASTINGPERFORMED BY: [employer] Rjmnut7457 [address] RoadDublin [place] [id number] Hemoglobin A1c 5.4 % (Normal) Range: 4.8-5.6 Comments: . Pre-diabetes: 5.7 - 6.4 Diabetes: >6.4 Glycemic control for adults with diabetes: <7.0 :32 C-REACT PROT HIGH SENS(hsCRP) Comments: PATIENT WAS FASTINGPERFORMED BY: [employer] Rvxuky[address] [facility] [place] [id number] (63788) C-Reactive Protein, Cardiac 7.13 mg/L (Abnormal) Range: 0.00-3.00 Comments: Relative Risk for Future Cardiovascular Event Low <1.00 Average 1.00 - 3.00 High >3.00 :32 Vitamin D Hydroxy (72776) Comments: PATIENT WAS FASTINGPERFORMED BY: [employer] Kqecbb[address] [facility] HospitalD[facility] [place] [id number] Vitamin D, 25-Hydroxy 50.4 ng/mL (Normal) Range: 30.0-100.0 Comments: Vitamin D deficiency has been defined by the [place] ofMedicine and an Endocrine Society practice guideline as alevel of serum 25-OH vitamin D less than 20 ng/mL (1,2).The Endocrine Society went on to further define vitamin Dinsufficiency as a level between 21 and 29 ng/mL (2).1. IOM ([place] of Medicine). 2010. Dietary reference intakes for calcium and D. Heart [place]: The National Academies Press.2. Mely MF, Jus NC, Sophie GUARDADO, et al. Evaluation, treatment, and prevention of vitamin D deficiency: an Endocrine Society clinical practice guideline. JCEM. 2010; 96(7):1911-30. :32 LIPID PANEL (27633) Comments: PATIENT WAS FASTINGPERFORMED BY: [facility] Wvdyqd6044 [facility] [id number] LDL/HDL Ratio 1.4 {ratio} (Normal) Range: 0.0-3.6 [...] PATIENT NOT FASTINGPERFORMED BY: MARY ANNE [facility] Pnwvhf9791 [facility] [id number] (83507) Immature Grans (Abs) 0.0 {x10E3/uL} (Normal) Range: [...] (Normal) Range: 3.4-10.8 28-Dec-20179:00 FOLIC ACID SERUM (72087) Comments: PATIENT NOT FASTINGPERFORMED BY: [facility] MedicineThkuuz3352 [facility] [id number] Folate (Folic Acid), Serum 16.2 ng/mL (Normal) Comments: A serum folate concentration of less than 3.1 ng/mL isconsidered to represent clinical deficiency. 28-Dec-20179:00 IRON BINDING CAPACITY (TIBC) Comments: PATIENT NOT FASTINGPERFORMED BY: [facility] Sports MedicineLvscsk6346 [facility] [id number] (80907) Iron Saturation 41 % (Normal) Range: 15-55 Iron 86 ug/dL (Normal) Range: 38-169 UIBC 123 ug/dL (Normal) Range: 111-343 Iron Bind.Cap.(TIBC) 209 ug/dL (Abnormal) Range: 250-450 28-Dec-20179:00 FERRITIN (50936) Comments: PATIENT NOT FASTINGPERFORMED BY: [facility] [id number] Ferritin, Serum 122 ng/mL (Normal) Range: 30-400 28-Dec-20179:00 LDH (LD) (LACTATE DEHYDROGENASE) Comments: PATIENT NOT FASTINGPERFORMED BY: [facility] [id number] (15588) LDH 169 [iU]/L (Normal) Range: 121-224 28-Dec-20179:00 VITAMIN B-12 (CYANOCOBALAMIN) Comments: PATIENT NOT FASTINGPERFORMED BY: [facility] [id number] (69711) Vitamin B12 627 pg/mL (Normal) Range: 232-1245 91-Omt-591690:23 CBC W/AUTO DIFF WBC (45906) Comments: PATIENT NOT FASTINGPERFORMED BY: [facility] [id number] Immature Grans (Abs) 0.0 {x10E3/uL} (Normal) Range: [...] 4.14-5.80 WBC 5.4 {x10E3/uL} (Normal) Range: 3.4-10.8 67-Jgy-695543:23 DRUG ASSAY-PHENOBARBITOL (43932) Comments: PATIENT NOT FASTINGPERFORMED BY: [facility] [id number] Phenobarbital, Serum 19 ug/mL (Normal) Range: 15-40 Comments: Detection Limit = 3 03-Qvh-419179:23 Phenytoin (Dilantin) (78299) Comments: PATIENT NOT FASTINGPERFORMED BY: [facility] [facility] [id number] Phenytoin (Dilantin), Serum 16.7 ug/mL (Normal) Range: 10.0-20.0 Comments: Detection Limit = 0.8 <0.8 Indicates None Detected :22 CBC W/AUTO DIFF WBC (00787) Comments: PATIENT WAS FASTINGPERFORMED BY: [employer] [facility] [facility] HospitalNovatel WirelessSw[facility] [id number] Immature Grans (Abs) 0.0 {x10E3/uL} (Normal) Range: [...] 4.14-5.80 WBC 4.9 {x10E3/uL} (Normal) Range: 3.4-10.8 76-Nbh-16683:22 DRUG ASSAY-PHENOBARBITOL (91453) Comments: PATIENT WAS FASTINGPERFORMED BY: [facility]70 [address] RoadNovatel Wirelessblin [place] [id number] Phenobarbital, Serum 17 ug/mL (Normal) Range: 15-40 Comments: Detection Limit = 3 :22 Phenytoin (Dilantin) (48068) Comments: PATIENT WAS FASTINGPERFORMED BY: [facility] Pjsrfs6418 [address] RoadDublin [place] [id number] Phenytoin (Dilantin), Serum 12.5 ug/mL (Normal) Range: 10.0-20.0 Comments: Detection Limit = 0.8 <0.8 Indicates None Detected :03 Vitamin D Hydroxy (02091) Comments: PATIENT WAS FASTINGPERFORMED BY: [facility] Kvjkkn4567 [address] RoadDublin [place] [id number] Vitamin D, 25-Hydroxy 56.7 ng/mL (Normal) Range: 30.0-100.0 Comments: Vitamin D deficiency has been defined by the [place] ofL[facility] Hospitalcine and an Endocrine Society practice guideline as alevel of serum 25-OH vitamin D less than 20 ng/mL (1,2).The Endocrine Society went on to further define vitamin Dinsufficiency as a level between 21 and 29 ng/mL (2).1. IOM ([place] of Medicine). 2010. Dietary reference intakes for calcium and D. Heart [place]: The National Academies Press.2. Mely MF, Jus NC, Sophie GUARDADO, et al. Evaluation, treatment, and prevention of vitamin D deficiency: an Endocrine Society clinical practice guideline. JCEM. 2010; 96(7):1911-30. :03 MICROALBUMIN: CREATININE RATIO Comments: PATIENT WAS FASTINGPERFORMED BY: [facility] Spning[address] [facility] Hospitalbl[facility] [place] [id number]; review 12/21 (77226) AND (79274) Alb/Creat Ratio 3.2 {mg/g_creat} (Normal) Range: 0.0-30.0 Albumin, Urine 3.5 ug/mL (Normal) Creatinine, Urine 108.8 mg/dL (Normal) :03 LIPID PANEL (92322) Comments: PATIENT WAS FASTINGPERFORMED BY: [facility] Drinlz9158 [facility] [id number] LDL/HDL Ratio 1.6 {ratio} (Normal) Range: 0.0-3.6 Comments: LDL/HDL Ratio Men Women 1/2 Avg.Risk 1.0 1.5 Av g.Risk 3.6 3.2 2X Avg.Risk 6.2 5.0 3X Avg.Risk 8.0 6.1 LDL Cholesterol Calc 87 mg/dL (Normal) Range: 0-99 VLDL Cholesterol Chyna 12 mg/dL (Normal) Range: 5-40 HDL Cholesterol 54 mg/dL (Normal) Triglycerides 58 mg/dL (Normal) Range: 0-149 Cholesterol, Total 153 mg/dL (Normal) Range: 100-199 43-Pfb-77269:03 METABOLIC PANEL, COMPREHENSIVE Comments: PATIENT WAS FASTINGPERFORMED BY: [facility] Xcxzba7558 [facility] [id number] ([id number]) ALT (SGPT) 16 [iU]/L (Normal) Range: 0-44 [...] mg/dL (Normal) Range: 65-99 :03 HGB A1C (46206) Comments: PATIENT WAS FASTINGPERFORMED BY: [facility]6370 [facility] [id number] Hemoglobin A1c 5.5 % (Normal) Range: 4.8-5.6 Comments: . Pre-diabetes: 5.7 - 6.4 Diabetes: >6.4 Glycemic control for adults with diabetes: <7.0 :11 LIPID PANEL (76237) Comments: PATIENT WAS FASTINGPERFORMED BY: [place] 0697570 [facility] [id number] LDL/HDL Ratio 1.5 {ratio_units} (Normal) Range: 0.0-3.6 Comments: LDL/HDL Ratio Men Women 1/2 Avg.Risk 1.0 1.5 Av g.Risk 3.6 3.2 2X Avg.Risk 6.2 5.0 3X Avg.Risk 8.0 6.1 LDL Cholesterol Calc 93 mg/dL (Normal) Range: 0-99 VLDL Cholesterol Chyna 19 mg/dL (Normal) Range: 5-40 HDL Cholesterol 61 mg/dL (Normal) Triglycerides 97 mg/dL (Normal) Range: 0-149 Cholesterol, Total 173 mg/dL (Normal) Range: 100-199 58-Ykj-93397:11 C-REACT PROT HIGH SENS(hsCRP) Comments: PATIENT WAS FASTINGPERFORMED BY: Business ExchangeKessler Institute for RehabilitationZcpplw6272 [facility] [id number] ([id number]) C-Reactive Protein, Cardiac 4.51 mg/L (Abnormal) Range: 0.00-3.00 Comments: Relative Risk for Future Cardiovascular Event Low <1.00 Average 1.00 - 3.00 High >3.00 77-Nmq-00762:11 DRUG ASSAY-PHENOBARBITOL (35570) Comments: PATIENT WAS FASTINGPERFORMED BY: [facility]6370 [facility] [id number] Phenobarbital, Serum 19 ug/mL (Normal) Range: 15-40 Comments: Detection Limit = 3 86-Ost-17435:11 Phenytoin (Dilantin) (25619) Comments: PATIENT WAS FASTINGPERFORMED BY: [facility]6370 [facility] [id number]; review 09/21 Phenytoin (Dilantin), Serum 15.9 ug/mL (Normal) Range: 10.0-20.0 Comments: Detection Limit = 0.8 <0.8 Indicates None Detected 58-Zbv-15675:11 METABOLIC PANEL, COMPREHENSIVE Comments: PATIENT WAS FASTINGPERFORMED BY: Business ExchangeCarlsbad Medical CenterGvmplj2120 [facility] [id number] (13607) ALT (SGPT) 16 [iU]/L (Normal) Range: 0-44 [...] Glucose, Serum 84 mg/dL (Normal) Range: 65-99 79-Yyj-75861:11 CBC W/AUTO DIFF WBC (88766) Comments: PATIENT WAS FASTINGPERFORMED BY: Business ExchangeKessler Institute for RehabilitationGafghb5485 [facility] [id number] Immature Grans (Abs) 0.0 {x10E3/uL} (Normal) Range: [...] 4.14-5.80 WBC 5.3 {x10E3/uL} (Normal) Range: 3.4-10.8 94-Rly-38208:11 Lyme Disease Antibody W/ Comments: PATIENT WAS FASTINGPERFORMED BY: [facility]6370 [facility] [id number] Reflex (62772) Lyme IgG/IgM Ab <0.91 {ISR} (Normal) Range: 0.00-0.90 Comments: Negative <0.91 Equivocal 0.91 - 1.09 Positive >1.09 5-Uaa-808466:15 C-Reactive Protein (19322) Comments: PATIENT NOT FASTINGPERFORMED BY: [employer]6370 [facility] [id number] C-Reactive Protein, Quant 7.5 mg/L (Abnormal) Range: 0.0-4.9 :15 RHEUMATOID FACTOR-QUANT (01029) Comments: PATIENT NOT FASTINGPERFORMED BY: [employer]Co Dpylwe2103 [facility] [id number] RA Latex Turbid. <10.0 {IU/mL} (Normal) Range: 0.0-13.9 3-Rvm-479290:15 Lyme Disease Antibody W/ Comments: PATIENT NOT FASTINGPERFORMED BY: [employer]6370 [facility] [id number] Reflex (99701) Lyme IgG/IgM Ab <0.91 {ISR} (Normal) Range: 0.00-0.90 Comments: Negative <0.91 Equivocal 0.91 - 1.09 Positive >1.09 :45 CBC W/AUTO DIFF WBC (12207) Comments: PATIENT WAS FASTINGPERFORMED BY: [employer]6370 [facility] EnergyC[facility] [id number] Immature Grans (Abs) 0.0 {x10E3/uL} (Normal) Range: [...] PANEL, COMPREHENSIVE Comments: PATIENT WAS FASTINGPERFORMED BY: LabCoKessler Institute for RehabilitationXhscmb3885 [facility] [id number] (73297) ALT (SGPT) 40 [iU]/L (Normal) Range: 0-44 [...] (PROSTATE SPECIFIC Comments: PATIENT WAS FASTINGPERFORMED BY: [employer] Khzvcy3890 [facility] [id number] ANTIGEN) (V76.44) Prostate Specific Ag, 2.6 ng/mL (Normal) Range: 0.0-4.0 Serum Comments: [employer] ECLIA methodology. .According to the [place] [employer], Serum PSA shoulddecrease and remain at undetectable levels after radicalprostatectomy. The AUA defines biochemical recurrence as an initialPSA value 0.2 ng/mL or greater followed by a subsequent confirmatoryPSA value 0.2 ng/mL or greater.Values obtained with d ifferent assay methods or kits cannot be usedinterchangeably. Results cannot be interpreted as absolute evidenceof the presence or absence of malignant disease. 50-Fmj-715075:32 DRUG ASSAY-PHENOBARBITOL (16999) Comments: PATIENT WAS FASTINGPERFORMED BY: [employer] Vqihqf7819 [facility] [id number] Phenobarbital, Serum 17 ug/mL (Normal) Range: 15-40 Comments: Detection Limit = 3 :32 Phenytoin (Dilantin) (13943) Comments: PATIENT WAS FASTINGPERFORMED BY: [employer] Rzqkni0546 [facility] [id number] Phenytoin (Dilantin), Serum 14.8 ug/mL (Normal) Range: 10.0-20.0 Comments: Detection Limit = 0.8 <0.8 Indicates None Detected :32 METABOLIC PANEL, COMPREHENSIVE Comments: PATIENT WAS FASTINGPERFORMED BY: [employer] Ehuniy1584 [facility] [id number] (97831) ALT (SGPT) 18 [iU]/L (Normal) Range: 0-44 [...] Glucose, Serum 73 mg/dL (Normal) Range: 65-99 97-Gpe-720507:32 LIPID PANEL (51315) Comments: PATIENT WAS FASTINGPERFORMED BY: [employer]70 [facility] [id number] LDL/HDL Ratio 1.7 {ratio_units} (Normal) Range: 0.0-3.6 Comments: LDL/HDL Ratio Men Women 1/2 Avg.Risk 1.0 1.5 Av g.Risk 3.6 3.2 2X Avg.Risk 6.2 5.0 3X Avg.Risk 8.0 6.1 LDL Cholesterol Calc 100 mg/dL (Abnormal) Range: 0-99 VLDL Cholesterol Chyna 9 mg/dL (Normal) Range: 5-40 HDL Cholesterol 58 mg/dL (Normal) Triglycerides 47 mg/dL (Normal) Range: 0-149 Cholesterol, Total 167 mg/dL (Normal) Range: 100-199 59-Xec-979492:32 HGB A1C (89614) Comments: PATIENT WAS FASTINGPERFORMED BY: Gro Intelligenceox RoadDublin [place] [id number] Hemoglobin A1c 5.6 % (Normal) Range: 4.8-5.6 Comments: . Pre-diabetes: 5.7 - 6.4 Diabetes: >6.4 Glycemic control for adults with diabetes: <7.0 :32 Vitamin D Hydroxy (01303) Comments: PATIENT WAS FASTINGPERFORMED BY: [facility] Ltcbla4837 [facility] [id number] Vitamin D, 25-Hydroxy 49.9 ng/mL (Normal) Range: 30.0-100.0 Comments: Vitamin D deficiency has been defined by the [place] ofMedicine and an Endocrine Society practice guideline as alevel of serum 25-OH vitamin D less than 20 ng/mL (1,2).The Endocrine Society went on to further define vitamin Dinsufficiency as a level between 21 and 29 ng/mL (2).1. IOM ([place] of Medicine). 2010. Dietary reference intakes for calcium and D. Heart [place]: The National Academies Press.2. Mely MF, Jus CASTILLO, Sophie GUARDADO, et al. Evaluation, treatment, and prevention of vitamin D deficiency: an Endocrine Society clinical practice guideline. JCEM. 2010; 96(7):1911-30. 42-Ccv-074964:32 C-REACT PROT HIGH SENS(hsCRP) Comments: PATIENT WAS FASTINGPERFORMED BY: [employer] Sdlfkf5139 [facility] [id number] (46482) C-Reactive Protein, Cardiac 7.94 mg/L (Abnormal) Range: 0.00-3.00 Comments: Relative Risk for Future Cardiovascular Event Low <1.00 Average 1.00 - 3.00 High >3.00 :56 Potassium Serum (73551) Comments: PATIENT NOT FASTINGPERFORMED BY: [facility]Core[facility]6370 [facility] [id number] Information: [id number], [id number] Potassium, Serum 5.2 mmol/L (Normal) Range: 3.5-5.2 :29 Potassium Serum (85833) Comments: PATIENT NOT FASTINGPERFORMED BY: [facility]6370 [facility] [id number] Potassium, Serum 5.3 mmol/L (Abnormal) Range: 3.5-5.2 : DRUG ASSAY-PHENOBARBITOL (98427) Comments: PATIENT NOT FASTINGPERFORMED BY: [facility]6370 [facility] [id number] Phenobarbital, Serum 21 ug/mL (Normal) Range: 15-40 Comments: Detection Limit = 3 :29 Phenytoin (Dilantin) (86804) Comments: PATIENT NOT FASTINGPERFORMED BY: [facility]6370 [facility] [id number] Phenytoin (Dilantin), Serum 13.8 ug/mL (Normal) Range: 10.0-20.0 Comments: : Therapeutic 6.0 - 14.0 . Detectio n Limit = 0.8 <0.8 Indicates None Detected : HEPATITIS C ANTIBODY (66789) Comments: PATIENT NOT FASTINGPERFORMED BY: [facility]6370 [facility] [id number] Hep C Virus Ab <0.1 {s/co_ratio} (Normal) Range: 0.0-0.9 Comments: Negative: < 0.8 Indeterminate: 0.8 - 0.9 Positive: > 0.9 . The CDC recommends that a positive HCV antibody result be followed up with a HCV Nucleic Acid Amplification test (729056). :58 HGB A1C (98314) Comments: PATIENT WAS FASTINGPERFORMED BY: [facility]6370 [facility] [id number] Hemoglobin A1c 5.6 % (Normal) Range: 4.8-5.6 Comments: . Pre-diabetes: 5.7 - 6.4 Diabetes: >6.4 Glycemic control for adults with diabetes: <7.0 :58 CBC W/AUTO DIFF WBC (65318) Comments: PATIENT WAS FASTINGPERFORMED BY: [facility]6370 [facility] [id number] Immature Grans (Abs) 0.0 {x10E3/uL} (Normal) Range: [...] PANEL, COMPREHENSIVE Comments: PATIENT WAS FASTINGPERFORMED BY: LabCoKessler Institute for RehabilitationBbrlfv4296 [facility] [id number] (48465) ALT (SGPT) 16 [iU]/L (Normal) Range: 0-44 [...] mg/dL (Normal) Range: 65-99 03-Nov-20169:58 LIPID PANEL (57972) Comments: PATIENT WAS FASTINGPERFORMED BY: LabCoKessler Institute for RehabilitationRzcvrq8767 [facility] [id number] LDL/HDL Ratio 1.6 {ratio_units} Range: 0.0-3.6 (Normal) [...] mmol/L (Normal) Comments: PATIENT NOT FASTINGPERFORMED BY: [facility]6370 [facility] [place] [id number] 0:01 Range: 3.5-5.2 :58 C-REACT PROT HIGH SENS(hsCRP) Comments: PATIENT WAS FASTINGPERFORMED BY: Business ExchangeKessler Institute for RehabilitationSnkktq0615 [facility] [place] [id number] (10934) C-Reactive Protein, Cardiac 6.91 mg/L (Abnormal) Range: 0.00-3.00 Comments: Relative Risk for Future Cardiovascular Event Low <1.00 Average 1.00 - 3.00 High >3.00 :28 TESTOSTERONE FREE (10470) Comments: PATIENT NOT FASTINGPERFORMED BY: [facility]6370 [facility] [id number] BY: [address] [id number] Free Testosterone(Direct) 2.7 pg/mL (Abnormal) Range: 6.6-18.1 :38 Phenytoin (Dilantin) (30861) Comments: PATIENT WAS FASTINGPERFORMED BY: [facility]6370 [facility] [id number] Phenytoin (Dilantin), Serum 12.3 ug/mL (Normal) Range: 10.0-20.0 Comments: : Therapeutic 6.0 - 14.0 . Detectio n Limit = 0.8 <0.8 Indicates None Detected :38 Vitamin D Hydroxy (67690) Comments: PATIENT WAS FASTINGPERFORMED BY: LifeproofCoKessler Institute for RehabilitationScgzvx0640 [facility] [place] [id number] Vitamin D, 25-Hydroxy 57.6 ng/mL (Normal) Range: 30.0-100.0 Comments: Vitamin D deficiency has been defined by the [place] ofMedicine and an Endocrine Society practice guideline as alevel of serum 25-OH vitamin D less than 20 ng/mL (1,2).The Endocrine Society went on to further define vitamin Dinsufficiency as a level between 21 and 29 ng/mL (2).1. IOM ([place] of [employer]). 2010. Dietary reference intakes for calcium and D. Heart [place]: The National Academies Press.2. Mely MF, Jus CASTILLO, Sophie GUARDADO, et al. Evaluation, treatment, and prevention of vitamin D deficiency: an Endocrine Society clinical practice guideline. JCEM. 2010; 96(7):1911-30. :38 LIPID PANEL (43365) Comments: PATIENT WAS FASTINGPERFORMED BY: [employer] [facility] [id number] LDL/HDL Ratio 1.3 {ratio_units} (Normal) Range: 0.0-3.6 [...] CREATININE RATIO Comments: PATIENT WAS FASTINGPERFORMED BY: [employer] [facility] [id number] (65890) AND (97195) Microalb/Creat Ratio <3.2 {mg/g_creat} (Normal) Range: 0.0-30.0 Microalbumin, Urine <3.0 ug/mL (Normal) Creatinine, Urine 95.2 mg/dL (Normal) :38 METABOLIC PANEL, COMPREHENSIVE Comments: PATIENT WAS FASTINGPERFORMED BY: [employer] [facility] [id number] (83839) ALT (SGPT) 14 [iU]/L (Normal) Range: 0-44 [...] mg/dL (Normal) Range: 65-99 :38 HGB A1C (65393) Comments: PATIENT WAS FASTINGPERFORMED BY: [facility]CoKessler Institute for RehabilitationJvakjr7837 [facility] [id number] Hemoglobin A1c 5.6 % (Normal) Range: 4.8-5.6 Comments: . Pre-diabetes: 5.7 - 6.4 Diabetes: >6.4 Glycemic control for adults with diabetes: <7.0 :38 C-REACT PROT HIGH SENS(hsCRP) Comments: PATIENT WAS FASTINGPERFORMED BY: [place] 6882070 [facility] [id number] (94944) C-Reactive Protein, Cardiac 16.47 mg/L (Abnormal) Range: 0.00-3.00 Comments: Relative Risk for Future Cardiovascular Event Low <1.00 Average 1.00 - 3.00 High >3.00 :28 PSA (PROSTATE SPECIFIC Comments: PATIENT NOT FASTINGPERFORMED BY: [place] 6882070 [facility] [id number] BY: [address] [id number] ANTIGEN) (V76.44) Prostate Specific Ag, 1.6 ng/mL (Normal) Range: 0.0-4.0 Serum Comments: [employer] ECLIA methodology. .According to the [place] [employer], Serum PSA shoulddecrease and remain [...] Phenytoin (Dilantin) Comments: PATIENT NOT FASTINGPERFORMED BY: [facility]6370 [facility] [id number] BY: [address] [id number] (68516) Phenytoin (Dilantin), Serum 18.8 ug/mL (Normal) Range: 10.0-20.0 Comments: : Therapeutic 6.0 - 14.0 . Detectio n Limit = 0.8 <0.8 Indicates None Detected 45-Jxx-919562:24 Phenytoin (Dilantin) Comments: PATIENT NOT FASTINGPERFORMED BY: [facility]6370 [facility] [id number] Information: [id number] (23385) Phenytoin (Dilantin), Serum 15.8 ug/mL (Normal) Range: 10.0-20.0 Comments: : Therapeutic 6.0 - 14.0 . Detectio n Limit = 0.8 <0.8 Indicates None Detected 93-Tfb-555521:19 Phenytoin (Dilantin) (17630) Comments: Order Date: 04/08/16Order Date: 04/08/16Time Medication is to be Given? 0000[facility] [address] [place], [place], [address] PHENYTOIN 21.2 mL (Abnormal) Range: 10.0-20.0 Comments: Resulst Called to Charline 04/08/16 at 1450 by CCRYTZER.Results read back by Charline. 60-Aej-647886:34 CBC W/Diff, Automated Comments: [facility] [address] [place], [place], [address] Absolute Lymph 2.34 {X10_3/ul} (Normal) Range: 0.83-4.51 [...] Range: 4.4-11.0 :34 Comprehensive Metabolic Profil Comments: [facility] [address] [place], [place], [address] GAP 4 (Abnormal) Range: 5-15 CO2 31.0 [...] mg/dL (Normal) Range: 70-110 :34 Magnesium Comments: [facility] Sekbgtzvmy5356 [place], [address] MG 2.2 mg/dL (Normal) Range: 1.8-2.4 47-Ugd-977095:34 Phenobarbital Comments: Time Medication is to be Given? 0000[facility] Lidgzcjcak4024 [place], [address] PHENOBARB 22.0 ug/mL (Normal) Range: 10.0-40.0 05-Pqr-064480:34 Phenytoin (Dilantin) Level Comments: Time Medication is to be Given? 0000[facility] [address] [place], [address] PHENYTOIN 28.3 mL (Abnormal) Range: 10.0-20.0 Comments: Critical Result(s) Called at: 14:19:48 04/07/2016 by: Katlin kahn at [facility] 19-Rtd-624369:34 Thyroid Stim Hormone (TSH) Comments: [facility] [address] [place], [address] TSH 1.55 {uIU/mL} (Normal) Range: 0.358-3.74 80-Esa-920259:34 Vitamin B12 1009 pg/mL (Abnormal) Comments: [facility] Dezdxwhvgg2005 [place], [id number](583 Range: 211-911 :11 CBC W/Diff, Automated Comments: [facility] U[address]jwnnaqm9[address] [place], [address] Absolute Lymph 1.51 {X10_3/ul} (Normal) Range: 0.83-4.51 [...] 4.6-6.2 WBC 5.0 K/mm3 (Normal) Range: 4.4-11.0 21-Lmv-78466:11 Comprehensive Metabolic Profil Comments: [facility] [address] [place], [address] GAP 7 (Normal) Range: 5-15 CO2 25.0 [...] (Normal) Range: 70-110 :11 Lipid Profile Comments: [facility] [address] [place], [address] VLDL 10 mg/dL (Normal) Range: [...] Comments: Time Medication is to be Given? 0000[facility] [address] [place], [address] PHENOBARB 19.8 ug/mL (Normal) Range: 10.0-40.0 :11 Phenytoin (Dilantin) Level Comments: Time Medication is to be Given? 0000[facility] [address] [place], [address] PHENYTOIN 17.4 mL (Normal) Range: 10.0-20.0 :11 Vitamin D,25 Hydroxy Comments: [facility] [address] [place], [address] Vitamin D 25-OH 42.5 ng/mL (Normal) Comments: Vitamin D 25(OH) Status Range Deficiency <20 ng/mL (50nmol/L) Insuffciency 20 - 30 ng/mL (50 - 75 nmol/L) Sufficiency 30 - 100 ng/mL (75 - 250 nmol/L) Toxicity >100 ng/mL (>250 nmol/L) 04-Nov-20158:15 COLON BIOPSY (CHOOSE See Note (Normal) Comments: [facility] [address] [place], [address] SITE) Comments: Patient: CHELI NEUMANN : 1950 (64/M) Acct Num: [id number] Phys: Landon Werner Unit Num: [id number] Loc: LABSPEC Specimen: [id number] Received: 11/04/15 - [...] one cassette. / CHRISTIN:desirae 05/01/16 TC:1 CPT: 85612 HEADER OPERATION: Colonoscopy with biopsy PRE-OP DIAGNOSIS: History of polyps TISSUE SUBMITTED: Polyp transverse colon, rule out adenoma MICROSCOPIC DESCRIPTION Slides are reviewed. MICROSCOPIC DIAGNOSIS Polyp trans verse colon, biopsy: Fragments of tubular adenoma. CHRISTIN:whit 11/06/15 Signed Tanner Carey 11/06/15 <signature on file> :13 Lipid Profile Comments: [facility] [address] [place], [address] VLDL 13 mg/dL (Normal) Range: 5-40 LDL [...] Comments: Time Medication is to be Given? 2099[facility] [address] [place], [address] PHENOBARB 19.2 ug/mL (Normal) Range: 10.0-40.0 :13 Phenytoin (Dilantin) Level Comments: Time Medication is to be Given? 2099[facility] [address] [place], [address] PHENYTOIN 19.8 mL (Normal) Range: 10.0-20.0 :13 Vitamin D,25 Hydroxy Comments: [facility] [address] [place], [address] Vitamin D 25-OH 30.7 ng/mL (Normal) Comments: Vitamin D 25(OH) Status Range Deficiency <20 ng/mL (50nmol/L) Insuffciency 20 - 30 ng/mL (50 - 75 nmol/L) Sufficiency 30 - 100 ng/mL (75 - 250 nmol/L) Toxicity >100 ng/mL (>250 nmol/L); ADDENDA: non-emergent till apt :11 CBC W/Diff, Automated Comments: Test performed at:[facility] [address] [place] [address] ; will reivew at 02/17 appt [...] 31-Jan-20157:11 Comprehensive Metabolic Profil Comments: Test performed at:[facility] Funhidtrkb9390 [place], [place] [id number] GAP 6 (Normal) Range: 5-15 CO2 25.0 [...] 70-110 :11 Lipid Profile Comments: Test performed at:[facility] [address] [place] [address] VLDL 12 mg/dL (Normal) Range: [...] Medication is to be Given? ??2000Test performed at:[facility] [address] ??[place], [place] ??[address] PHENOBARB 19.4 ug/mL (Normal) Range: 10.0-40.0 :11 Phenytoin (Dilantin) Level Comments: Time Medication is to be Given? 2000Test performed at:[facility] [address] [place] [address] PHENYTOIN 18.1 ug/mL (Normal) Range: 10.0-20.0 :11 PSA,Total - Annual Screen Comments: Test performed at:[facility] [address] [place] [address] PSA,TOT SCREEN 2.27 ng/mL (Normal) Range: 0.00-4.00 Comments: This test was performed using the TPSA assay method for my[employer] chemistry system. Values obtained with differentassay methods cannot be used interchangably.When changing PSA assays in the course of monitoring apatient, additional sequential testing should be carriedout to confirm baseline values. :11 Vitamin D,25 Hydroxy Comments: Test performed at:[facility] [address] [facility] [place] [address] Vitamin D 25-OH 34.3 ng/mL (Normal) Comments: Vitamin D 25(OH) Status Range Deficiency <20 ng/mL (50nmol/L) Insuffciency 20 - 30 ng/mL (50 - 75 nmol/L) Sufficiency 30 - 100 ng/mL (75 - 250 nmol/L) Toxicity >100 ng/mL (>250 nmol/L) :04 Phenobarbital Comments: Has pt arrived? YTime Medication is to be Given? 0000Test performed at:[facility] [address] [place] [address] PHENOBARB 18.5 ug/mL (Normal) Range: 10.0-40.0 :04 Phenytoin (Dilantin) Level Comments: Has pt arrived? YTime Medication is to be Given? 0000Test performed at:[facility] [address] [place] [address] PHENYTOIN 16.3 ug/mL (Normal) Range: 10.0-20.0 9-Sai-215997:28 Phenytoin (Dilantin) Level Comments: CRITICAL VALUE REPEATED AND VERIFIED. CALLED TO Khurram DICKSON09/06/14 Crhistin Moya.RESULTS READ BACK BY SAME.Time Medication is to be Given? 1000Test performed at:[facility] Labo [address] [place] [address] PHENYTOIN 22.4 ug/mL (Abnormal) Range: 10.0-20.0 :19 CBC W/Diff, Automated Comments: Has pt arrived? YTest performed at:[facility] [address] ??[place], [place] ??[address] Absolute Lymph 1.89 {X10_3/ul} (Normal) [...] Profil Comments: Has pt arrived? YTest performed at:[facility] [address] [facility] [place] [address] GAP 5 (Normal) Range: 5-15 [...] Profile Comments: Has pt arrived? YTest performed at:[facility] [address] [place] [address] VLDL 12 mg/dL (Normal) Range: [...] Hydroxy Comments: Has pt arrived? YTest performed at:[facility] [address]tjfbkue[address] [facility] [place] [address] Vitamin D 25-OH 31.9 ng/mL (Normal) Comments: Vitamin D 25(OH) Status Range Deficiency <20 ng/mL (50nmol/L) Insuffciency 20 - 30 ng/mL (50 - 75 nmol/L) Sufficiency 30 - 100 ng/mL (75 - 250 nmol/L) Toxicity >100 ng/mL (>250 nmol/L) 9-Hjj-925796:46 Aerobic Bacterial Culture Comments: PATIENT NOT FASTINGPERFORMED BY: LabCoCatherine [place] 9026670 [facility] [id number] Result 1 Mixed skin olivia (Normal) Aerobic Bacterial Culture Final report (Normal) :07 DRUG ASSAY-PHENOBARBITOL Comments: PATIENT NOT FASTINGPERFORMED BY: LabCoKessler Institute for RehabilitationLgdxog5165 [facility] [id number] Information: [id number],NO DRAW FEE (42606) Phenobarbital, Serum 15 ug/mL (Normal) Range: 15-40 Comments: Detection Limit = 2 <2 indicates None Detected :33 DRUG ASSAY-PHENOBARBITOL Comments: PATIENT NOT FASTINGPERFORMED BY: [facility] [id number] Information: [id number] ([id number]) Pentobarbital None Detected ug/mL (Normal) Range: 1-5 [...] CHOL 158 mg/dL (Normal) Comments: <200 mg/dL Mvddevppc622-699 mg/dL Borderline>240 mg/dL High Risk :16 PSA 1.08 ng/mL (Normal) Range: 0.00-4.00 Comments: This test was performed using the TPSA assay method for my[employer]arr[employer] chemistry system. Values obtained with differentassay methods [...] >100 ng/mL (>250 nmol/L) :33 Rapid Flu (03349 x 2) Comments: neg Influenza A Ag [...] CHOL 169 mg/dL (Normal) Comments: <200 mg/dL Gmpluegbh651-391 mg/dL Borderline>240 mg/dL High Risk TRIG 58 [...] - 250 nmol/L)Toxicity >100 ng/mL (>250 nmol/L) 47-Yfu-360581:13 DEXA BONE DENSITY STUDY (HP) Radiology Report [...] is considered osteoporotic, as outlined above, according [facility] (WHO) cri teria. Fracture risk [...] Cunha M.D.September 26, 2012 at 4:13:45 PM [phone] Signed GP/GP If you are the referring physician and would like to consult with theradiologist who provided this interpretation, please contact Connie Gutiérrez at [phone]. If this radiologist is unavailable, youwill be directed to formerly [facility] radiologist to assist. If you are a patient with a question regarding this report, pleasecontactyour referring physician directly. Professional Interpretation Provided By: [employer], Phone , These documents contain legally protected [...] 09/26/12 1633 Sign by: Charbel Cunha MD 62-Acy-21404:07 CBCMD RBCM NORM C+C {NORMAL} (Normal) PE [...] D deficiency has been defined by the [place] ofMedicine and an Endocrine Society practice guideline as alevel of serum 25-OH vitamin D less than 20 ng/mL (1,2).The Endocrine Society went on to further define vitamin Dinsufficiency as a level between 21 and 29 ng/mL (2).1. IOM ([place] of Medicine). 2010. Dietary reference intakes for calcium and D. Heart [place]: The National Academies Press.2. Mely MF, Jus CASTILLO, Sophie GUARDADO, et al. Evaluation, treatment, and prevention of vitamin D deficiency: an Endocrine Society clinical practice guideline. JCEM. 2010; 96(7): 1911-30.Performed at: [facility] [id number] Director: Keith Nance PhD, Phone: [phone] DIL 12.4 ug/mL (Normal) Range: 10.0-20.0 [...] D deficiency has been defined by the [place] ofMedicine and an Endocrine Society practice guideline as alevel of serum 25-OH vitamin D less than 20 ng/mL (1,2).The Endocrine Society went on to further define vitamin Dinsufficiency as a level between 21 and 29 ng/mL (2).1. IOM ([place] of Medicine). 2010. Dietary reference intakes for calcium and D. Heart [place]: The National Academies Press.2. Mely MF, Jus CASTILLO, Sophie GUARDADO, et al. Evaluation, treatment, and prevention of vitamin D deficiency: an Endocrine Society clinical practice guideline. JCEM. 2010; 96(7): 1911-30.Performed at: [address] [id number] Director: Jacquelyn Charles MD, Phone: [phone] 51-Waj-024180:28 LOWER EXT.JOINT ONLY (ROUTINE) Radiology Report See [...] anthony Signed DAVIDE/DAVIDE Professional Interpretation Provided By: [facility], , To consult with a radiologist regarding this report, please call our 2 [id number] line @ Dictated on 12/24/111334 by Tomas [...] ng/mL (Normal) Range: 0.0-4.0 :08 TEST FR [id number] 5.0 pg/mL (Abnormal) Range: 6.6-18.1 Comments: Performed at: - [facility] [id number] [place], [place] [id number] Director: Jacquelyn Charles MD, Phone: [phone] at: [facility] [id number] Director: Joseph Sevilla MD, Phone: [phone] TSH 0.98 {uIU/mL} (Normal) Range: 0.358-3.74 :08 VIT D,25 75379 30.9 ng/mL (Abnormal) Range: 32.0-100.0 Comments: Effective July 19, 2011 Vitamin D, 25-Hydroxy reference intervals will be changing to 30-100. .Recent studies consider the lower li alta of 32.0 ng/mL to be athreshold for optimal health.Horace ROBLES. J Nutr. 2004;135(2):317-22. 9-Gcc-882824:57 DEXA BONE DENSITY STUDY (HP) Radiology Report See Note (Normal) Comments: Exam Number: [id number] LINICAL:This is a 59-year-old male patient with history of osteopenia. EXAMINATION:DUAL ENERGY X-RAY ABSORPTIOMETRY / DEXA. TECHNIQUE:Bone Density Measurements (BMD) of lumbar spi ne and bilateral hips were obtained using a DoNation scanner.. COMPARISON:Comparison is made with prior examination [...] Report See Note (Normal) Comments: Exam Number: [id number] LINICAL:59-year-old male complains of shortness of breath. [...] IMPRESSION:Old granulomatous disease.No pulmonary infiltrates. Reported By: KARLA DUNHAM DR. PHENOBARB 15.9 ug/mL (Normal) Range: 10.0-40.0 :35 PHENYTOIN 13.5 ug/mL (Normal) Range: 10.0-20.0 :35 PHOS 3.7 mg/dL (Normal) Range: 2.5-4.9 :35 :35 PROT.[id number] GAMMA GLOB,U 19.7 % (Normal) M-SPIKE,U SeeNote % (Normal) Comments: Result: Not Observed NOTE Comment (Normal) Comments: Protein electrophoresis scan will follow via computer,mail, or paddock judge delivery. ALBUMIN,UR 26.3 % (Normal) DXFHN-2-JMQV,U 2.7 % (Normal) GNLSQ-9-SVAG,U 12.9 % (Normal) BETA GLOB,U 38.4 % (Normal) PROTEIN,UR 6.2 mg/dL (Normal) Range: 0.0-15.0 :35 PTH,Intact 42 pg/mL (Normal) Range: 14-72 :35 SPE [id number] A/G RATIO 1.4 (Normal) Range: 0.7-2.0 INTERPRETATION Comment (Normal) Comments: The SPE pattern appears essentially unremarkable. Evidenceof monoclonal protein is not apparent.Protein electrophoresis scan will follow via computer,mail, or paddock judge delivery. ALBUMIN 3.9 g/dL (Normal) Range: 3.2-5.6 ALPHA-1 GLOBUL 0.3 g/dL (Normal) Range: 0.1-0.4 ALPHA-2 GLOBUL 0.7 g/dL (Normal) Range: 0.4-1.2 BETA GLOBULIN 0.8 g/dL (Normal) Range: 0.6-1.3 GAMMA GLOBULIN 0.9 g/dL (Normal) Range: 0.5-1.6 GLOBULIN, TOTAL 2.7 g/dL (Normal) Range: 2.0-4.5 M-SPIKE SeeNote g/dL (Normal) Comments: Result: Not Observed PROTEIN,TOTAL 6.6 g/dL (Normal) Range: 6.0-8.5 :35 TEST FR [id number] 3.4 pg/mL (Abnormal) Range: 6.6-18.1 :35 TSH 0.89 {uIU/mL} (Normal) Range: 0.358-3.74 :35 VIT D,25 89664 35.5 ng/mL (Normal) Range: 32.0-100.0 Comments: Recent studies consider the lower limit of 32.0 ng/mL to harsh threshold for optimal health.Horace ROBLES. J Nutr. 2004;135(2):317-22.Performed at: [place] [address] Director: Jacquelyn Charles MD, Phone: [phone] at: [facility] - [facility] [address] [id number] Director: Joseph Sevilla MD, Phone: [phone] Plan of Care Name Dates Details Instructions [...] Indication: Seizure disorder Planned Observations DRUG ASSAY-PHENOBARBITOL (67135)Indication: Generalized convulsive seizure On: 90-Apl-332155:04 Request Phenytoin (Dilantin) (45929)Indication: Generalized convulsive seizure On: 26-Ixx-315791:04 Request LIPID PANEL (17101)Indication: Bilateral carotid artery stenosis On: 49-Uwc-614101:03 Request C-REACT PROT HIGH SENS(hsCRP) (30022)Indication: Elevated high sensitivity C-reactive protein On: 30-Thq-306761:03 Request CBC with auto diff (17609)Indication: Elevated hemoglobin A1c On: 74-Tdr-511303:02 Request MICROALBUMIN: CREATININE RATIO (15077) AND (24366)Indication: Elevated hemoglobin A1c On: 37-Dty-904141:02 Request METABOLIC PANEL, COMPREHENSIVE (13863)Indication: Elevated hemoglobin A1c On: 40-Jtd-455005:02 Request HGB A1C (93244)Indication: Elevated hemoglobin A1c On: 34-Mwu-163993:02 Request Phenytoin (Dilantin) (11296)Indication: Generalized convulsive seizure On: 1-Vbq-418906:40 Request CBC with auto diff (92910)Indication: Anemia On: 6-Chh-296485:40 Request METABOLIC PANEL, COMPREHENSIVE (33456)Indication: Elevated hemoglobin A1c On: 9-Dfm-303502:39 Request DRUG ASSAY-PHENOBARBITOL (09861)Indication: Generalized convulsive seizure On: 69-Uce-711623:38 Request FECAL OCCULT- Tubes sent home (18532)Indication: Anemia On: 58-Qvl-802891:31 Request IRON (62565)Indication: Anemia On: 55-Qht-587737:31 Request LIPID PANEL (63377)Indication: Hyperlipidemia On: 54-Jvr-901659:30 Request METABOLIC PANEL, COMPREHENSIVE (30979)Indication: Elevated hemoglobin A1c On: 80-Gus-797076:29 Request HGB A1C (50174)Indication: Elevated hemoglobin A1c On: 15-Zyo-102213:29 Request HGB A1C (78081)Indication: Prediabetes On: 3-Sqh-049965:17 Request CBC with auto diff (94781)Indication: Generalized convulsive seizure On: 3-Gvf-120363:13 Request C-REACT PROT HIGH SENS(hsCRP) (81486)Indication: Elevated high sensitivity C-reactive protein On: 3-Tap-747096:13 Request LIPID PANEL (74718)Indication: Bilateral carotid artery stenosis On: 9-Pof-561594:12 Request METABOLIC PANEL, COMPREHENSIVE (35808)Indication: Bilateral carotid artery stenosis On: 3-Wlb-336302:12 Request Phenytoin (Dilantin) (41989)Indication: Generalized convulsive seizure On: 4-Bqp-993726:00 Request Comments: 1 month Metabolic Panel, Basic (70767)Indication: Dizziness On: :14 Request DRUG ASSAY-TOT PHENYTOIN (49621)Indication: Poisoning by phenytoin, accidental or unintentional, subsequent encounter On: :35 Request Magnesium (22316)Indication: Dizziness On: :28 Request Comments: stat CBC W/AUTO DIFF WBC (54014)Indication: Dizziness On: : Request Comments: stat TSH (37077)Indication: Dizziness On: : Request Comments: stat METABOLIC PANEL, COMPREHENSIVE (23997)Indication: Dizziness On: : Request Comments: stat DRUG ASSAY-PHENOBARBITOL (90738)Indication: Dizziness On: :18 Request Comments: stat Phenytoin (Dilantin) (72921)Indication: Dizziness On: :18 Request Comments: stat VITAMIN B-12 (CYANOCOBALAMIN) (29478)Indication: Dizziness On: :13 Request DRUG ASSAY-PHENOBARBITOL (79823)Indication: Seizure disorder On: :26 Request Phenytoin (Dilantin) (05843)Indication: Seizure disorder On: :26 Request PSA (PROSTATE SPECIFIC ANTIGEN) (V76.44)Indication: Screening for prostate cancer On: :25 Request METABOLIC PANEL, COMPREHENSIVE (80045)Indication: Bilateral carotid artery stenosis On: :24 Request LIPID PANEL (35796)Indication: Bilateral carotid artery stenosis On: :24 Request Vitamin D Hydroxy (48722)Indication: Vitamin D deficiency, unspecified On: :24 Request Phenytoin (Dilantin) (14737)Indication: Seizure disorder On: :09 Request DRUG ASSAY-PHENOBARBITOL (81693)Indication: Seizure disorder On: 63-Qpj-587419:09 Request PSA (PROSTATE SPECIFIC ANTIGEN) (V76.44)Indication: Encounter for screening for malignant neoplasm of prostate (Renamed from Screening for prostate cancer) On: :09 Request CBC W/AUTO DIFF WBC (39928)Indication: Seizure disorder On: :09 Request METABOLIC PANEL, COMPREHENSIVE (23584)Indication: Seizure disorder On: :09 Request LIPID PANEL (20366)Indication: Bilateral carotid artery stenosis On: :09 Request Vitamin D Hydroxy (65829)Indication: Vitamin D deficiency, unspecified On: :08 Request METABOLIC PANEL, COMPREHENSIVE (34453)Indication: Osteoporosis On: :08 Request LIPID PANEL (57676)Indication: Bilateral carotid artery stenosis On: :52 Request DRUG ASSAY-PHENOBARBITOL (83753)Indication: Seizure disorder On: :52 Request Phenytoin (Dilantin) (73646)Indication: Seizure disorder On: :51 Request Vitamin D Hydroxy (62493)Indication: Vitamin D deficiency, unspecified On: :51 Request DRUG ASSAY-PHENOBARBITOL (87234)Indication: Seizure disorder On: :10 Request PSA (PROSTATE SPECIFIC ANTIGEN) (V76.44)Indication: Screening for prostate cancer On: :10 Request CBC W/AUTO DIFF WBC (42890)Indication: Seizure disorder On: : Request METABOLIC PANEL, COMPREHENSIVE (05000)Indication: Seizure disorder On: :09 Request LIPID PANEL (01120)Indication: Bilateral carotid artery stenosis On: :09 Request Phenytoin (Dilantin) (08290)Indication: Seizure disorder On: :06 Request Vitamin D Hydroxy (02780)Indication: Osteoporosis On: :00 Request DRUG ASSAY-PHENOBARBITOL (38928)Indication: Seizure disorder On: :49 Request Phenytoin (Dilantin) (24233)Indication: Seizure disorder On: :49 Request Phenytoin (Dilantin) (07933)Indication: Cardiac dysrhythmia On: 6-Jrn-133477:01 Request Culture, Aerobic, Bacterial ID ([id number])Indication: Sebaceous cyst of ear On: 9-Vtk-644428:55 Request CBC WITH MANUAL DIFF (70751)Indication: Seizure disorder On: :49 Request METABOLIC PANEL, COMPREHENSIVE (56282)Indication: Osteoporosis On: :49 Request LIPID PANEL (63811)Indication: Bilateral carotid artery stenosis On: :49 Request Vitamin D Hydroxy (10283)Indication: Vitamin D deficiency, unspecified On: :46 Request CBC WITH MANUAL DIFF (18541)Indication: Seizure disorder On: :02 Request METABOLIC PANEL, COMPREHENSIVE (16073)Indication: Seizure disorder On: :02 Request LIPID PANEL (81277)Indication: Bilateral carotid artery stenosis On: :02 Request Phenytoin (Dilantin) (78693)Indication: Seizure disorder On: :01 Request Vitamin D Hydroxy (70781)Indication: Vitamin D deficiency, unspecified On: 35-Zlu-43945:59 Request PSA (PROSTATE SPECIFIC ANTIGEN) (V76.44)Indication: Screening for prostate cancer On: :57 Request Phenytoin (Dilantin) (42631)Indication: Seizure disorder On: 86-Zci-627168:03 Request CBC WITH MANUAL DIFF (02738)Indication: Osteoporosis On: 48-Feg-089913:03 Request METABOLIC PANEL, COMPREHENSIVE (40546)Indication: Osteoporosis On: 95-Ilw-564273:03 Request LIPID PANEL (80408)Indication: Bilateral carotid artery stenosis On: 18-Etp-598228:03 Request Vitamin D Hydroxy (59904)Indication: Vitamin D deficiency, unspecified On: 95-Ezo-533254:02 Request TSH (34952)Indication: Osteoporosis On: 68-Bsn-273027:02 Request DRUG ASSAY-PHENOBARBITOL (20695)Indication: Seizure disorder On: 03-Sbp-296993:49 Request CBC with manual diff (95444)Indication: Encounter for long-term (current) use of medications On: 27-Tgb-752817:47 Request Metabolic Panel, Comprehensive (75646)Indication: Encounter for long-term (current) use of medications On: 85-Xsp-108609:47 Request Lipid Panel (65338)Indication: Encounter for long-term (current) use of medications On: 69-Anz-513052:47 Request PSA (PROSTATE SPECIFIC ANTIGEN) (51045)Indication: Screening for prostate cancer On: 84-Qjr-262495:47 Request Phenytoin (Dilantin) (64772)Indication: Seizure disorder On: 47-Gty-670607:45 Request CALCIFEDIOL (35006)Indication: Vitamin D deficiency, unspecified On: 79-Flk-545160:44 Request DRUG ASSAY-PHENOBARBITOL (46507)Indication: Encounter for long-term (current) use of medications On: 52-Ign-79565:32 Request DRUG ASSAY-PHENOBARBITOL (55985)Indication: Encounter for long-term (current) use of medications On: 16-Zvc-666015:58 Request Vitamin D Hydroxy (83219)Indication: Vitamin D deficiency, unspecified On: 71-Msd-647056:32 Request METABOLIC PANEL, COMPREHENSIVE (76338)Indication: Seizure disorder On: 46-Htf-447100:32 Request CBC WITH MANUAL DIFF (90205)Indication: Seizure disorder On: 06-Sgd-583932:32 Request Phenytoin (Dilantin) (81931)Indication: Seizure disorder On: 96-Xyu-623985:32 Request Phenytoin (Dilantin) (38446)Indication: Seizure disorder On: 98-Hbj-342349:12 Request Phenytoin (Dilantin) (82712)Indication: Seizure disorder On: 62-Obm-849102:05 Request Comments: 2 weeks PSA (PROSTATE SPECIFIC ANTIGEN) (V76.44)Indication: Screening for prostate cancer On: :30 Request TESTOSTERONE FREE (02826)Indication: Testicular hypofunction On: 33-Qau-116194:29 Request LIPID PANEL (43444)Indication: Hypoglycemia On: :28 Request Vitamin D Hydroxy (02592)Indication: Vitamin D deficiency, unspecified On: :27 Request TSH (70943)Indication: Osteoporosis On: :27 Request CBC WITH MANUAL DIFF (46734)Indication: Seizure disorder On: :27 Request METABOLIC PANEL, COMPREHENSIVE (90577)Indication: Seizure disorder On: :27 Request Phenytoin (Dilantin) (23650)Indication: Seizure disorder On: :27 Request CBC WITH MANUAL DIFF (09459)Indication: Osteoporosis On: 63-Nip-410198:09 Request METABOLIC PANEL, COMPREHENSIVE (51890)Indication: Seizure disorder On: 01-Oco-578114:09 Request TESTOSTERONE FREE (86643)Indication: Testicular hypofunction On: :57 Request Vitamin D Hydroxy (78143)Indication: Vitamin D deficiency, unspecified On: 25-Tvf-527545:57 Request Phenytoin (Dilantin) (59121)Indication: Seizure disorder On: 69-Nqv-960469:03 Request TESTOSTERONE FREE (84911)Indication: Osteoporosis On: :09 Request Vitamin D Hydroxy (81814)Indication: Osteoporosis On: :03 Request TSH (95552)Indication: Osteoporosis On: :03 Request UPEP (47719)Indication: Osteoporosis On: :03 Request SPEP (62166)Indication: Osteoporosis On: 62-Bom-917860:03 Request PHOSPHORUS (06262)Indication: Osteoporosis On: :03 Request PARATHORMONE (62215)Indication: Osteoporosis On: 21-Xwv-035079:03 Request Planned Encounters Medical; [facility] 3 Month FU - On: 29-Sep-2018 9:45 [facility] Fast DO, Jessica A Fast DO, Jessica A Planned Procedures ELECTROCARDIOGRAM, COMPLETE (ECG) On: 28-Jun-2018 Intent (83771)By: Fast DO, Jessica A Fast DO, Comments: ekg showed normal sinus rhythym, normal axis, no acute st/t wave changes sinus lokesh Jessica A Flu Vaccine (Quadrivalent) 56357Tu: On: 14-Jun-2018 Intent Fast DO, Jessica A Fast DO, Jessica A Comments: Lot #[id number]/30/2019Site-L dltd, IMDose prefilled syringegiven by: Yuly reviewed and ABN signed Radiology - Lumbar SpineBy: Fast DO, On: 21-Mar-2018 Intent Jessica A Fast DO, Jessica A Cartoid DopplerBy: Fast DO, Jessica A On: 21-Dec-2017 Intent Fast DO, Jessica A ELECTROCARDIOGRAM, COMPLETE (ECG) On: 20-Jun-2017 Intent (47984)By: Fast DO, Jessica A Fast DO, Comments: ekg showed normal sinus rhythym, normal axis, no acute st/t wave changes junctional lokesh Jessica A Ultrasound - ThyroidBy: Fast DO, On: 20-Jun-2017 Intent Jessica A Fast DO, Jessica A Flu Vaccine (Quadrivalent) 09518Ib: On: 20-Jun-2017 Intent Fast DO, Jessica A [...] DO, Jessica A DEXA SCAN AXIAL SKELETON (05943)By: On: 05-Nov-2016 Intent Fast DO, Jessica A Fast DO, Jessica A Comments: january Cartoid DopplerBy: Fast DO, Jessica A On: 05-Nov-2016 Intent Fast DO, Jessica A Comments: november PNEUM VAC ADLT/IMUMNOSPR, SBC/INTRM On: 05-Nov-2016 Intent (19521)By: Fast DO, Jessica A Fast DO, Comments: lot: [id number]: 02/05/18ite/route: L del/IMamt: 0.5mLVIS signed when applicableChelsea, TIMBER SIZER OPERATOR Jessica A CT - Brain/Head (IV Contrast On: 05-May-2016 Intent Needed)By: Fast DO, Jessica A Fast DO, Jessica A Ultrasound - ThyroidBy: Fast DO, On: 05-May-2016 Intent Jessica A Fast DO, Jessica A Flu Vaccine (Quadrivalent) 86339Lf: On: 05-May-2016 Intent Fast DO, Jessica A Fast DO, Jessica A Comments: FLUlot: [id number]:02/25/17site:rt deltoidroute:IMdose:.5mlDEMICK, MA ELECTROCARDIOGRAM, COMPLETE (ECG) On: 14-Apr-2016 Intent (70407)By: Fast DO, Jessica A Fast DO, Comments: ekg showed sinus lokesh normal axis no acute change Jessica A Echo CompleteBy: Fast DO, Jessica A On: 14-Apr-2016 Intent Fast DO, Jessica A Nuclear Stress Test/Stress On: 14-Apr-2016 Intent SPECT/TreadmillBy: Fast DO, Jessica A Fast DO, Jessica A Overnight Pulse Ox(38858)By: Hola DO, On: 23-Oct-2015 Intent Jessica A Fast DO, Jessica A Six Minute Walk Assessment (30167)By: On: 23-Oct-2015 Intent Fast DO, Jessica A Fast DO, Jessica A Ultrasound - AortaBy: Fast DO, Jessica On: 08-Aug-2015 Intent A Fast DO, Jessica A Flu Vaccine (Quadrivalent) 53655Ro: On: 08-Aug-2015 Intent Fast DO, Jessica A Fast DO, Jessica A Comments: lot [id number]: 02/26/2016site/route L shala, IMamt 0.5mlVIS and ABN signed when applicableChelsea, TIMBER SIZER OPERATOR Six Minute Walk Assessment (33450)By: On: 08-Aug-2015 Intent Fast DO, Jessica A Fast DO, Jessica A Overnight Pulse OX (70106)By: Fast On: 08-Aug-2015 Intent DO, Jessica A Fast DO, Jessica A Cartoid DopplerBy: Fast DO, Jessica A On: 08-Aug-2015 Intent Fast DO, Jesscia A IMMUNIZ ADMNIN, 1 VAC, SNGL/COMBO On: 17-Feb-2015 Intent (25034)By: Fast DO, Jessica A Fast DO, Jessica A DEXA SCAN AXIAL SKELETON (87257)By: On: 07-Oct-2014 Intent Fast DO, Jessica A Fast DO, Jessica A Flu Vaccine (Quadrivalent) 10701Kk: On: 03-Jul-2014 Intent Fast DO, Jessica A Fast DO, Jessica A Comments: lot:[id number]:dose:0.5mLRoute: IMlocation: L armgiven by: msmith ADMINISTRATION OF INFLUENZA VIRUS On: 03-Jul-2014 Intent VACCINE ([id number])By: Fast DO, Jessica A Fast DO, Jessica A Holter Monitor 24 hrsBy: Fast DO, On: 15-Mar-2014 Intent Jessica A Fast DO, Jessica A Cartoid DopplerBy: Fast DO, Jessica A On: 15-Mar-2014 Intent Fast DO, Jessica A IMMUNIZ ADMNIN, 1 VAC, SNGL/COMBO On: 14-Sep-2013 Intent (25526)By: Fast DO, Jessica A Fast DO, Jessica A FLU VAC, SPLIT, >3 YEARS, INTRAMUSC On: 14-Sep-2013 Intent (94504)By: Fast DO, Jessica A Fast DO, Comments: Lot #:[id number] date:mount given:0.5mlRoute: IMSite given: L dltdVIS and ABN signedGiven by: MYESHA Lozano Jessica A Eprescribed prescriptions ([id number])By: On: 14-Sep-2013 Intent Rosario Dickson JALYN (Ankle Brachial Index) (44367)By: On: 17-Jan-2013 Intent Fast DO, Jessica A Fast DO, Jessica A Cartoid DopplerBy: Fast DO, Jessica A On: 17-Jan-2013 Intent Fast DO, Jessica A Eprescribed prescriptions ([id number])By: On: 17-Jan-2013 Intent Rosario Dickson DXA, BONE DENSITY, AXIAL SKELETON On: 20-Sep-2012 Intent (05227)By: Fast DO, Jessica A Fast DO, Jessica A Eprescribed prescriptions (G8553)By: On: 20-Sep-2012 Intent Rosario Dickson Six Minute Walk Assessment (71739)By: On: 24-Feb-2012 Intent Mast RN, Ángela Inhaler Demo (06466)By: Fast DO, On: 26-Jan-2012 Intent Jessica A Fast DO, Jessica A Six Minute Walk Assessment (19150)By: On: 26-Jan-2012 Intent Fast DO, Jessica A Fast DO, Jessica A Overnight Pulse OX (76084)By: Hola On: 26-Jan-2012 Intent DO, Jessica A Fast DO, Jessica A Spirometry (09249)By: Yessi On: 26-Jan-2012 Intent Rosario Comments: god effort and curve mod- severe obstruction TDAP VACCINE >7 IM (40088)By: On: 21-Jul-2011 Intent Rosario Dickson Comments: Lot #[id number]-L arm, IMDose prefilledgiven by:Adalgisa KOVACS - OtherBy: Hola GOODSON, Jessica A Fast On: 21-Jul-2011 Intent DO Jessica A Comments: right foot FLU VAC, SPLIT, >3 YEARS, INTRAMUSC On: 21-Jul-2011 Intent (32632)By: Rosario Dickson Comments: pharmacy PNEUM VAC ADLT/IMUMNOSPR, SBC/INTRM On: 28-Jul-2010 Intent (86193)By: Jessica Limon DO A Fast DO, Comments: Lot #[id number]-R armDose0.5mlgiven by:ATA Hernandez IMMUNIZ ADMNIN, 1 VAC, SNGL/COMBO On: 28-Jul-2010 Intent (87220)By: Rudolph Limon DOa A Fast DO, Jessica A Overnight Pulse Ox(26539)By: Amanda RN, On: 22-Jul-2010 Intent Ángela Six Minute Walk Assessment (45502)By: On: 22-Jul-2010 Ángela Ortiz RN Overnight Pulse OX (37642)By: Hola On: 15-Jun-2010 Intent DO Jessica A Fast DO, Jessica A Six Minute Walk Assessment (33826)By: On: 15-Jun-2010 Intent Hola GOODSON, Jessica A Fast DO, Jessica A DXA, BONE DENSITY, AXIAL SKELETON On: 15-Jun-2010 Intent (36342)By: Hola GOODSON Jessica A Fast DO, Jessica A Radiology - Chest- PA and LatBy: Fast On: 15-Jun-2010 Intent DO, Jessica A Fast DO, Jessica A Spirometry (66984)By: Jessica Limon DO On: 15-Jun-2010 Intent A Fast DO, Jessica A Comments: good effort and curve mod obst EKG (68646)By: Hola GOODSON Jessica A Fast On: 15-Jun-2010 [...] [facility] wellness exam : [facility] Instructions [facility] Hyperlipidemia : DISCONTINUED - LIPID PANEL (53692) Indication: Hyperlipidemia Elevated hemoglobin A1c : DISCONTINUED - HGB A1C (86108) Indication: Elevated hemoglobin A1c Low back pain [...] medic al issues: he was golfing in [employer] long car ride then low back radiating [...] patient does not have durable power of cellars supervisor or living will. The patient has noticed [...] disease (607.85) [facility] Payers MedicareUSAA PTC TherapeuticsCHELI NEUMANN; a guarantor
--- OUTSIDE RECORDS SUMMARY | 2018-09-24 08:45 | XMS RPT_ITS | Continuity of Care Document ---
:1950 Author Organization [facility] Address [address] [place] [address] Phone Care Team Providers Name Role Phone Jessica Limon DO Unavailable Dr. Landon Werner Unavailable [facility], [facility] Unavailable Dr. Jeremiah Banegas Unavailable Anneliese [...] Medications Name Dates Details CALTRATE 600+D PLUS, [id number] (Oral Tablet) Active 1 tab bid (600-400 [...] Procedures Procedure Dates Details [place] ([address]) Date: 17-Feb-2015 Completed 17-Feb-2015 Appendectomy Completed Colonoscopy Completed 04-Nov-2015 Comments: Within Normal Limits. Small adenoma removed- repeat in 5 years Tonsillectomy Completed Date Value Details 23-May-2018 PT D/C Summary (1) Result: Comments: See Note; NOTES: [facility] [address] [place] [address] Fax REHABILITATION SERVICES [facility] SUMMARY MR#: [id number] Acct: [id number] Name: CHELI NEUMANN Rep #: [id number] [...] PAIN. DOING HEP BUT HASN'T GONE TO [facility] BUT PLANS TO WHEN GOLFING SEASON IS OVER. PATIENT STATES HE DOESN'T THINK HE H TAKEN ANY ADVIL FOR ABOUT A MONTH. DRIVING TO [place] FOR GOLF OUTING FOR A WEEK 35 [...] please feel free to call me at [phone]. Thank you for the referral of this patient. Rose Butterfield <Electronically signed by Rose Colunga PT, Cert. MDT> 05/23/18 1303 CC: Jessica Limon DO ANDREA Signed 18-Apr-2018 Re-Evaluation - PT (1) Result: Comments: See Note; NOTES: [facility] [address] [place] [address]. [address] [place], [place] [address] Fax REEVALUATION / MEDICARE RECERTI [facility] PHYSICAL THERAPY MR#: [id number] Acct: [id number] Name: CHELI NEUMANN Rep #: [id number] : 1950 67 From: Rose Colunga PT, [...] REPORTS HE IS A MEMBER AT THE [employer]. STILL FEELING A LITTLE BIT OF TIGHTNESS [...] do not hesitate to contact me at [phone] by phone or if you have questions or concerns regarding this new plan of care! Sincerely, Rose Colunga <Electronically signed by Vicente Colunga PT, Cert. MDT> 04/18/18 1436 CC: Jessica Limon DO ANDREA Signed For Medicare only, by signing this I certify the plan of care. Physicians Signature Date 28-Mar-2018 Inital Evaluation (1) - PT Result: Comments: See Note; NOTES: [facility] [address] [place] [address] Fax REHABILITATION SERVICES INITIAL EVALUATION MR#: [id number] Acct: [id number] Name: CHELI NEUMANN Rep #: [id number] : 1950 67 From: Rose Colunga PT, [...] of: NO APPARENT REASON BUT DROVE TO [place] [facility] FOR A GOLF CL ASS. [...] to be FAXED BACK to us at [phone] for Medicare pur poses. Please let me know if there are questions or concerns regarding this plan of care. Physician Signature: Date: <Electronic ally signed by Rose Colunga PT, Cert. T> 03/28/18 1411 CC: Jessica Limon DO ANDREA Signed For Medicare only, by signing this I certify the plan of care. Physicians Signature Date 24-Mar-2018 Carotid Duplex Ultrasound Result: Comments: See Note; NOTES: [facility] Cardiovascular Services [address] [place] [address] Carotid Duplex Ultrasound 03/20/18 0956 MR#: [id number] Acct: [id number] Name: CHELI NOWAK Rep #: [id number] : 1950 67 From: David Mo MD Attending Dr: Jessica Limon DO Status: REG CLI Ordering Dr: Jessica Limon DO Date: 03/20/18 Location: [facility] Sex: M C Admitted: Reason For Study: [...] the left vertebral artery. Procedure Carotid Duplex 70848. Exam performed in department. Interpretation Sum lester No significant atherosclerotic plaque or stenosis noted in the right internal carotid artery. Mild (<50%) stenosis left extracranial internal carotid. Flow within the vertebral arteries is antegrade bilaterally. Ordering Physician: Jessica Limon Referring Physician: Jessica Limon ed By: Bethany Brar RVT 03/24/18728 Date David Mo MD CC: Jessica Limon DO Date Dictated: 03/20/1856 Date Transcribed: 03/24/18728 Exploration Manager: Signed 21-Mar-2018 L/S Spine Min 4 Views Result: Comments: See Note; NOTES: [facility] Imaging Services [address] [place] [address] L/S Spine Min 4 Views MR#: [id number] Acct: [id number] Name: THIENCADE Rep #: [id number] : 1950 67 From: Phil Lazcano MD PCP: Jessica Limon DO Status: REG CLI Study: L/S Spine Min 4 Views Date of Exam: 03/21/18 Exam# [id number] Ordering Dr: Jessica Limon DO STUDY: X-RAY [...] Service support , CC: Jessica Limon DO Exploration Manager: Signed 16-Feb-2018 Chest without Contrast Result: Comments: See Note; NOTES: [facility] Imaging Services [address] [place] [address] Chest without Contrast MR#: [id number] Acct: [id number] Name: CHELI NEUMANN A Rep #: [id number] : 1950 M 67 From: Kali Diaz MD PCP: Jessica Limon DO Status: REG CLI Study: Chest without Contrast Date of Exam: 02/16/18 Exam# [id number] Ordering Dr: Carlos Bowers MD STUDY: CT [...] CC: Jessica Limon DO; Carlos Bowers MD Exploration Manager: Signed 16-Nov-[address] Lung Screening Result: Comments: See Note; NOTES: [facility] Imaging Services [address] [place] [address] Lung Screening MR#: [id number] Acct: [id number] Name: CHELI NEUMANN Rep #: [id number] : 1950 M 66 From: Charbel Cunha MD PCP: Jessica Limon DO Status: [facility] CLI Study: Low Dose CT Lung Screening Date of Exam: 11/16/17 Exam# [id number] Ordering Dr: Carlos Bowers MD STUDY: LOW [...] Charbel Cunha MD at 10:24 EDT Tel [phone], Service suppo rt , CC: Jessica Limon DO; Carlos Bowers MD Exploration Manager: Signed 22-Jun-2017 Thyroid Result: Comments: See Note; NOTES: [facility] Imaging Services [address] [place] [address] Thyroid MR#: [id number] Acct: [id number] Name: CHELI NEUMANN Rep #: [id number] : [birth year] M 66 From: Kali Diaz MD PCP: Jessica Limon DO Status: REG CLI Study: Thyroid Date of Exam: 06/22/17 Exam# [id number] Ordering Dr: Jessica Limon DO STUDY: THYROID [...] Service support , CC: Jessica Limon DO Exploration Manager: Signed 16-Mar-2017 Finger(s) Min 2 Views Result: Comments: See Note; NOTES: [facility] Imaging Services [address] [place] [address] Verdana 4d Finger(s) Min 2 Views MR#: [id number] Acct: [id number] Name: CHELI NEUMANN Re p #: [id number] : 1950 M 66 From: Chas Kulkarni MD PCP: Jessica Limon DO Status: REG CLI Study: Finger(s) Min 2 Views Date of Exam: 03/16/17 Exam# [id number] Ordering Dr: Jessica Limon DO STUDY: X- [...] Service support , CC: Jessica Limon DO Exploration Manager: Signed 16-Mar-2017 Knee 4 or More Views Result: Comments: See Note; NOTES: [facility] Imaging Services [address] [place] [address] Verdana 4d Knee 4 or More Views MR#: [id number] Acct: [id number] Name: THIENCHELICADE Rep #: [id number] : 1950 M 66 From: Chas Kulkarni MD PCP: Jessica Limon DO Status: REG CLI Study: Knee 4 or More Views Date of Exam: 03/16/17 Exam# [id number] Ordering Dr: Jessica Limon DO STUDY: X-RA [...] Service support , CC: Jessica Limon DO Exploration Manager: Signed 01-Feb-2017 DXA BONE DENS W/VERT FX ASMT Result: Comments: See Note; NOTES: [facility] Imaging Services [address] [place] [address] Verdana 4d DXA BONE DENS W/VERT FX ASMT MR#: [id number] Acct: [id number] Name: IRVING NEUMANN Rep #: [id number] : 1950 [facility] From: Charbel Cunha MD PCP: Jessica Limno DO Status: REG CLI Study: DXA BONE DENS W/VERT FX ASMT Date of Exam: 02/01/17 Exam# [id number] Ordering Dr: Marcelino Limon DO STUDY: DUAL [...] Charbel Cunha MD at 12:41 EDT Tel [phone], Service support , Fax CC: Jessica Limon DO Exploration Manager: Signed 01-Dec-2016 Carotid Duplex Ultrasound Result: Comments: See Note; NOTES: [facility] Cardiovascular Services [address] [place] [address] Carotid Duplex Ultrasound 11/29/16 0940 MR#: [id number] Acct: [id number] Name: CHELI NOWAK Rep #: [id number] : 1950 66 From: René Aiken MD Attending Dr: Jessica Limon DO Status: REG CLI Ordering Dr: Jessica Limon DO Date: 11/29/16 Location: [facility] Sex: M C Admitted: [facility] n For Study: Carotid stenosi Rt. Velocities/BP [...] the left vertebral artery. Procedure Carotid Duplex 01471. Exam performed in department. Interpretation Summary Mild (<50% ) stenosis right extracranial internal carotid. Mild (<50%) stenosis left extracranial internal carotid. Flow within the vertebral arteries is antegrade bilaterally. Ordering Physician: Jessica Limon Performed By: Bethany Brar RVT 12/01/16 1035 Date René Aiken MD CC: Jessica Limon DO Date Dictated: 11/29/16 0940 Date Transcribed: 12/01/16 1035 Exploration Manager: Signed 10-May-2016 Brain/Head W/WO Contrast Result: Comments: See Note; NOTES: [facility] Imaging Services [address] [place] [address] [place] [address] Verdana 4d Brain/Head W/WO Contrast MR#: [id number] Acct: [id number] Name: CHELI NEUMANN Rep #: [id number] : 1950 M 65 From: Chas Kulkarni MD PCP: Jessica Limon DO Status: REG CLI Study: Brain/Head W/WO Contrast Date of Exam: 05/10/16 Exam# [id number] Ordering Dr: Jessica Limon TUDY: CT BRAIN [...] MD at 21:50 EDT , Service support , CC: Jessica Limon DO Exploration Manager: Signed 06-May-2016 Thyroid Result: Comments: See Note; NOTES: [facility] Imaging Services [facility] [place] [address] Verdana 4d Thyroid MR#: [id number] Acct: [id number] Name: CHELI NEUMANN Rep #: [id number] : 1950 M 65 From: Giorgio Hernandez MD PCP: Jessica Limon DO Status: REG CLI Study: Thyroid Date of Exam: 05/06/16 Exam# [id number] Ordering Dr: Jessica Limon DO STUDY: THYROID [...] at 7:32 EDT Tel , Service support [phone], F ax [phone] CC: Jessica Limon DO Exploration Manager: Signed 20-Apr-2016 Echocardiogram Complete Result: Comments: See Note; NOTES: [facility] Cardiovascular Services [address] [place] [address] Echo Complete 04/20/16 0829 MR#: [id number] Acct: [id number] Name: CHELI NEUMANN Rep #: [id number] : 1950 65 From: Neeraj Porter MD Attending Dr: Jessica Limon DO Status: REG CLI Ordering Dr: Jessica Limon DO Date: 04/20/16 Location: [facility] Sex: M C Admitted: Reason For Stud [...] DO Date Dictated: 828 Date Transcribed: 04/20/161336 Exploration Manager: Signed 20-Apr-2016 Nuclear Stress Test - Treadmil Result: Comments: See Note; NOTES: [facility] Imaging Services [address] [place] [address] Verdaamada 4d Nuclear Stress Test - Treadmil MR#: [id number] Acct: [id number] Name: CHELI NEUMANN Rep #: [id number] : 1950 65 From: Neeraj Porter MD [...] 68%. Neeraj Porter MD T: NTS JOB: [id number] 04/21/16 1019 <Electronically signed by Neeraj Porter MD> Date Neeraj Porter MD CC: Jessica Limon DO Date Dictated: 04/20/1650 Date Transcribed: 04/20/16849 Exploration Manager: Signed 07-Apr-2016 ELECTROCARDIOGRAM, COMPLETE (ECG) (17013) Comments: severe sinus lokesh- otherwise normal sinus- normal axis no acute st t wave changes Result: [MEASUREMENTS ANALYSIS] Date of Test: 04/07/2016 11:15:52; Heart Rate: 39; ME Interval: 192; QRS: 96; QT Interval: 462; Corrected QT Interval (QTc): 426; P Wave Gary: 69; QRS Wave Gary: 66; T Wave Gary: 50; Blood Pressure: 114/68 [ECG DIAGNOSTIC STATEMENTS] Date of Test: 04/07/2016 11:15:52; Summary: Marked sinus Bradycardia -With rate variation cv = 10.Low voltage in limb leads. ABNORMAL [MEASUREM ENTS ANALYSIS] Date of Test: 04/07/2016 11:14:53; Heart Rate: 41; ME Interval: 188; QRS: 96; QT Interval: 458; Corrected QT Interval (QTc): 425; P Wave Gary: 90; QRS Wave Gary: 65; T Wave Gary: 49; Bloo d Pressure: 114/68 [ECG DIAGNOSTIC STATEMENTS] Date of Test: 04/07/2016 11:14:53; Summary: Marked sinus Bradycardia -With rate variation cv = 22.Low voltage in limb leads. ABNORMAL 12-Dec-2015 Carotid Duplex Ultrasound Result: Comments: See Note; NOTES: [facility] Cardiovascular Services [address] [place] [address] Carotid Duplex Ultrasound 12/10/15 0904 MR#: [id number] Acct: [id number] Name: CHELI NEUMANN Rep #: [id number] : 1950 65 From: René Aiken MD [...] the left vertebral artery. Procedure Carotid Duplex 10477. The exam was diagnostic. Exam performed in [...] DO Date Dictated: 12/10/1504 Date Transcribed: 12/12/151751 Exploration Manager: Signed 10-Dec-2015 Aorta Result: Comments: See Note; NOTES: [facility] Imaging Services [address] [place] [address] Darnelldana 4d Aorta MR#: [id number] Acct: [id number] Name: CHELI NEUMANN Rep # : [id number] : 1950 M 65 From: Charbel Cunha MD PCP: Jessica Limon DO Status: REG CLI Study: Aorta Date of Exam: 12/10/15 Exam# [id number] Ordering Dr: Jessica Limon DO PROCEDURES: ULTRA [...] Cristina i, MD at 10:18 EDT Tel [phone], Service support [phone], CC: Jessica Limon DO Exploration Manager: Signed 23-Oct-2015 Spirometry (13970) Result: 08-Aug-2015 ELECTROCARDIOGRAM, COMPLETE (ECG) (40164) Comments: ekg showed normal sinus rhythym, normal axis, no acute st/t wave changes Result: [MEASUREMENTS ANALYSIS] Date of Test: 08/08/2015 11:57:53; Heart Rate: 57; ME Interval: 192; QRS: 94; QT Interval: 428; Corrected QT Interval (QTc): 423; P Wave Gary: 78; QRS Wave Gary: 76; T Wave Gary: 47; Blood Pressure: 120/72 [ECG DIAGNOSTIC STATEMENTS] Date of Test: 08/08/2015 11:57:53; Summary: Sinus Bradycardia Low voltage in limb leads. ABNORMAL 30-Jan-2015 Dexa Bone Density Study (HP) Result: Comments: See Note; NOTES: [facility] Imaging Services [address] [place] [address] Bone Density Report MR#: [id number] Acct: [id number] Name: CHELI NEUMANN Rep #: [id number] : 1950 M 64 From: Charbel Cunha MD PCP: Jessica Limon DO Status: REG CLI Study: Dexa Bone Density Study (HP) Date of Exam: 01/30/15 Exam# [id number] Ordering Dr: Jessica Limon DO STUDY: DUAL [...] Charbel Cunha MD at 15:54 EDT Tel [phone], Service support [phone], CC: Jessica Limon DO Exploration Manager: Signed 25-Sep-2014 Carotid Duplex Ultrasound Result: Comments: See Note; NOTES: [facility] Cardiovascular Services [address] [place] [address] Carotid Duplex Ultrasound 09/25/14 0850 MR#: [id number] Acct: [id number] [facility] e: CHELI NEUMANN Rep #: [id number] : 1950 63 From: René Aiken MD Attending Dr: Jessica Limon DO Status: REG CLI Ordering Dr: Jessica Limon DO Date: 09/25/14 Location: [facility] Sex: M C Admitted : Rt. Velocities/BP [...] in the left bulb. Procedure Carotid Duplex 47769. Exam performed in department. Interpretation Summary Mild (<50%) stenosis right extracranial internal carotid. Mild (<50%) stenosis left extracranial internal carotid. Flow w ithin the vertebral arteries is antegrade bilaterally. Ordering Physician: Jessica Limon Perform ed By: Lynn Granados RDCS 09/25/14 1044 Date René Aiken MD CC: Jessica Limon DO Date Dictated: 09/25/14 0850 Date Transcribed: 09/25/14 1044 Exploration Manager: Signed 15-Mar-2014 EKG (26263) Comments: ekg showed rhythym with periods of irregular rhythm- not afib, normal axis, no acute st/t wave changes Result: [MEASUREMENTS ANALYSIS] Date of Test: 03/15/2014 07:58:47; Heart Rate: 57; ME Interval: 202; QRS: 98; QT Interval: 412; Corrected QT Interval (QTc): 407; P Wave Gary: 90; QRS Wave Gary: 62; T Wave Gary: 52; Blood Pressure: 126/78 [ECG DIAGNOSTIC STATEMENTS] Date of Test: 03/15/2014 07:58:47; Summary: Sinus Bradycardia - occasional ectopic ventricular beat Low voltage in limb leads. -RSR(V1) -nondiagnostic. ABNORMAL Immunization Name Dates Details Zoster (shingles) on: 17-Feb-2015 Comments: Site: Posterior Upper Arm (Left) Lot #: [id number] Family History Unknown Family Member Name Dates [...] kg/m2 Body Surface Area Calculated 2.13 m2 89-Bdu-883578:27 Temperature 97.2 f Comments: Method: Temporal Pulse [...] kg/m2 Body Surface Area Calculated 2.1 m2 36-Nbp-961771:57 Pulse 64 /min Comments: Pattern: Regular Respiration [...] Comments: PATIENT WAS FASTINGPERFORMED BY: MARY ANNE [employer] [id number] ALT (SGPT) 26 [iU]/L (Normal) Range: 0-44 [...] mg/dL (Normal) Range: 65-99 :32 DRUG ASSAY-PHENOBARBITOL (12698) Comments: PATIENT WAS FASTINGPERFORMED BY: [facility] [facility] [id number] Phenobarbital, Serum 18 ug/mL (Normal) Range: 15-40 Comments: Detection Limit = 3 :32 Phenytoin (Dilantin) (74954) Comments: PATIENT WAS FASTINGPERFORMED BY: [facility] [facility] [id number] Phenytoin (Dilantin), Serum 12.2 ug/mL (Normal) Range: 10.0-20.0 Comments: Detection Limit = 0.8 <0.8 Indicates None Detected :32 MICROALBUMIN: CREATININE RATIO Comments: PATIENT WAS FASTINGPERFORMED BY: [facility] [facility] [id number] (96235) AND (90996) Alb/Creat Ratio <4.3 {mg/g_creat} (Normal) Range: 0.0-30.0 Albumin, Urine <3.0 ug/mL (Normal) Creatinine, Urine 70.5 mg/dL (Normal) :32 METABOLIC PANEL, COMPREHENSIVE Comments: PATIENT WAS FASTINGPERFORMED BY: [facility] [facility] [id number] (81253) ALT (SGPT) 16 [iU]/L (Normal) Range: 0-44 [...] DIFF WBC Comments: PATIENT WAS FASTINGPERFORMED BY: [facility] [facility] [id number] Information: [id number] (52469) Immature Grans (Abs) 0.0 {x10E3/uL} (Normal) Range: [...] {x10E3/uL} (Normal) Range: 3.4-10.8 :32 HGB A1C (20866) Comments: PATIENT WAS FASTINGPERFORMED BY: [facility] Pcpwmk3712 [address] Road[address]ublin [place] [id number] Hemoglobin A1c 5.4 % (Normal) Range: 4.8-5.6 Comments: . Pre-diabetes: 5.7 - 6.4 Diabetes: >6.4 Glycemic control for adults with diabetes: <7.0 :32 C-REACT PROT HIGH SENS(hsCRP) Comments: PATIENT WAS FASTINGPERFORMED BY: [employer] Qgshmv[address] [facility] [place] [id number] (86290) C-Reactive Protein, Cardiac 7.13 mg/L (Abnormal) Range: 0.00-3.00 Comments: Relative Risk for Future Cardiovascular Event Low <1.00 Average 1.00 - 3.00 High >3.00 :32 Vitamin D Hydroxy (78393) Comments: PATIENT WAS FASTINGPERFORMED BY: [employer] Dxjkpy[address] [facility] [place] [id number] Vitamin D, 25-Hydroxy 50.4 ng/mL (Normal) Range: 30.0-100.0 Comments: Vitamin D deficiency has been defined by the [place] of[place]icine and an Endocrine Society practice guideline as alevel of serum 25-OH vitamin D less than 20 ng/mL (1,2).The Endocrine Society went on to further define vitamin Dinsufficiency as a level between 21 and 29 ng/mL (2).1. IOM ([place] of Medicine). 2010. Dietary reference intakes for calcium and D. Heart [place]: The National Academies Press.2. Mely MF, Jus NC, Sophie GUARDADO, et al. Evaluation, treatment, and prevention of vitamin D deficiency: an Endocrine Society clinical practice guideline. JCEM. 2010; 96(7):1911-30. :32 LIPID PANEL (53223) Comments: PATIENT WAS FASTINGPERFORMED BY: [employer] Tpelxd3878 [facility] [id number] LDL/HDL Ratio 1.4 {ratio} (Normal) Range: 0.0-3.6 [...] PATIENT NOT FASTINGPERFORMED BY: MARY ANNE [facility] Qbntyn9045 [facility] [id number] (37829) Immature Grans (Abs) 0.0 {x10E3/uL} (Normal) Range: [...] (Normal) Range: 3.4-10.8 28-Dec-20179:00 FOLIC ACID SERUM (21726) Comments: PATIENT NOT FASTINGPERFORMED BY: [facility] FeintCarondelet HealthRfgtal7678 [facility] [id number] Folate (Folic Acid), Serum 16.2 ng/mL (Normal) Comments: A serum folate concentration of less than 3.1 ng/mL isconsidered to represent clinical deficiency. 28-Dec-20179:00 IRON BINDING CAPACITY (TIBC) Comments: PATIENT NOT FASTINGPERFORMED BY: [facility] FeintCarondelet HealthWtxlkg9869 [facility] [id number] (10783) Iron Saturation 41 % (Normal) Range: 15-55 Iron 86 ug/dL (Normal) Range: 38-169 UIBC 123 ug/dL (Normal) Range: 111-343 Iron Bind.Cap.(TIBC) 209 ug/dL (Abnormal) Range: 250-450 28-Dec-20179:00 FERRITIN (56568) Comments: PATIENT NOT FASTINGPERFORMED BY: [facility]intFormerly [facility] [id number] Ferritin, Serum 122 ng/mL (Normal) Range: 30-400 28-Dec-20179:00 LDH (LD) (LACTATE DEHYDROGENASE) Comments: PATIENT NOT FASTINGPERFORMED BY: [facility]Former[facility] [id number] (04797) LDH 169 [iU]/L (Normal) Range: 121-224 28-Dec-20179:00 VITAMIN B-12 (CYANOCOBALAMIN) Comments: PATIENT NOT FASTINGPERFORMED BY: [facility] [id number] (24182) Vitamin B12 627 pg/mL (Normal) Range: 232-1245 82-Tfg-063133:23 CBC W/AUTO DIFF WBC (15186) Comments: PATIENT NOT FASTINGPERFORMED BY: [facility]6[address] [facility] [id number] Immature Grans (Abs) 0.0 {x10E3/uL} (Normal) Range: [...] 4.14-5.80 WBC 5.4 {x10E3/uL} (Normal) Range: 3.4-10.8 02-Fxw-587490:23 DRUG ASSAY-PHENOBARBITOL (75987) Comments: PATIENT NOT FASTINGPERFORMED BY: [facility]6[address] [facility] [id number] Phenobarbital, Serum 19 ug/mL (Normal) Range: 15-40 Comments: Detection Limit = 3 28-Gxu-072039:23 Phenytoin (Dilantin) (85335) Comments: PATIENT NOT FASTINGPERFORMED BY: [facility]6[address] [facility] [id number] Phenytoin (Dilantin), Serum 16.7 ug/mL (Normal) Range: 10.0-20.0 Comments: Detection Limit = 0.8 <0.8 Indicates None Detected :22 CBC W/AUTO DIFF WBC (00787) Comments: PATIENT WAS FASTINGPERFORMED BY: [employer] [facility] HospitalModern BoutiqueUNC Health Rex [id number] Immature Grans (Abs) 0.0 {x10E3/uL} (Normal) Range: [...] 4.14-5.80 WBC 4.9 {x10E3/uL} (Normal) Range: 3.4-10.8 42-Zhn-81429:22 DRUG ASSAY-PHENOBARBITOL (19757) Comments: PATIENT WAS FASTINGPERFORMED BY: [facility]right[facility]70 [address] RoadModern Boutiqueblin [place] [id number] Phenobarbital, Serum 17 ug/mL (Normal) Range: 15-40 Comments: Detection Limit = 3 :22 Phenytoin (Dilantin) (04830) Comments: PATIENT WAS FASTINGPERFORMED BY: [facility]intSal[facility] Sddxlb8398 [address] RoadDublin [place] [id number] Phenytoin (Dilantin), Serum 12.5 ug/mL (Normal) Range: 10.0-20.0 Comments: Detection Limit = 0.8 <0.8 Indicates None Detected :03 Vitamin D Hydroxy (18427) Comments: PATIENT WAS FASTINGPERFORMED BY: [facility] Wfkmee4241 [address] RoadDublin [place] [id number] Vitamin D, 25-Hydroxy 56.7 ng/mL (Normal) Range: 30.0-100.0 Comments: Vitamin D deficiency has been defined by the [place] ofKettering Healthcine and an Endocrine Society practice guideline as alevel of serum 25-OH vitamin D less than 20 ng/mL (1,2).The Endocrine Society went on to further define vitamin Dinsufficiency as a level between 21 and 29 ng/mL (2).1. IOM ([place] of Medicine). 2010. Dietary reference intakes for calcium and D. Heart [place]: The National Academies Press.2. Mely MF, Jus NC, Sophie GUARDADO, et al. Evaluation, treatment, and prevention of vitamin D deficiency: an Endocrine Society clinical practice guideline. JCEM. 2010; 96(7):1911-30. :03 MICROALBUMIN: CREATININE RATIO Comments: PATIENT WAS FASTINGPERFORMED BY: [facility] Tlopxw[address] [facility] [place] [id number]; review 12/21 (33550) AND (45778) Alb/Creat Ratio 3.2 {mg/g_creat} (Normal) Range: 0.0-30.0 Albumin, Urine 3.5 ug/mL (Normal) Creatinine, Urine 108.8 mg/dL (Normal) :03 LIPID PANEL (09172) Comments: PATIENT WAS FASTINGPERFORMED BY: [facility] Yvohja2523 [facility] [id number] LDL/HDL Ratio 1.6 {ratio} (Normal) Range: 0.0-3.6 Comments: LDL/HDL Ratio Men Women 1/2 Avg.Risk 1.0 1.5 Av g.Risk 3.6 3.2 2X Avg.Risk 6.2 5.0 3X Avg.Risk 8.0 6.1 LDL Cholesterol Calc 87 mg/dL (Normal) Range: 0-99 VLDL Cholesterol Chyna 12 mg/dL (Normal) Range: 5-40 HDL Cholesterol 54 mg/dL (Normal) Triglycerides 58 mg/dL (Normal) Range: 0-149 Cholesterol, Total 153 mg/dL (Normal) Range: 100-199 94-Qwx-93889:03 METABOLIC PANEL, COMPREHENSIVE Comments: PATIENT WAS FASTINGPERFORMED BY: [facility] Mmreuv2195 [facility] [id number] (28287) ALT (SGPT) 16 [iU]/L (Normal) Range: 0-44 [...] mg/dL (Normal) Range: 65-99 :03 HGB A1C (96224) Comments: PATIENT WAS FASTINGPERFORMED BY: [facility] FeintFormerly [facility]6370 [facility] [id number] Hemoglobin A1c 5.5 % (Normal) Range: 4.8-5.6 Comments: . Pre-diabetes: 5.7 - 6.4 Diabetes: >6.4 Glycemic control for adults with diabetes: <7.0 :11 LIPID PANEL (13487) Comments: PATIENT WAS FASTINGPERFORMED BY: Aurora FeintVeronica Ville 5596770 [facility] [id number] LDL/HDL Ratio 1.5 {ratio_units} (Normal) Range: 0.0-3.6 Comments: LDL/HDL Ratio Men Women 1/2 Avg.Risk 1.0 1.5 Av g.Risk 3.6 3.2 2X Avg.Risk 6.2 5.0 3X Avg.Risk 8.0 6.1 LDL Cholesterol Calc 93 mg/dL (Normal) Range: 0-99 VLDL Cholesterol Chyna 19 mg/dL (Normal) Range: 5-40 HDL Cholesterol 61 mg/dL (Normal) Triglycerides 97 mg/dL (Normal) Range: 0-149 Cholesterol, Total 173 mg/dL (Normal) Range: 100-199 38-Fgh-87720:11 C-REACT PROT HIGH SENS(hsCRP) Comments: PATIENT WAS FASTINGPERFORMED BY: DonorsPlaySt. Lawrence Rehabilitation CenterBwmyrz1516 [facility] [id number] (65831) C-Reactive Protein, Cardiac 4.51 mg/L (Abnormal) Range: 0.00-3.00 Comments: Relative Risk for Future Cardiovascular Event Low <1.00 Average 1.00 - 3.00 High >3.00 29-Iew-10831:11 DRUG ASSAY-PHENOBARBITOL (45073) Comments: PATIENT WAS FASTINGPERFORMED BY: [facility] FeintFormerly [facility]6370 [facility] [id number] Phenobarbital, Serum 19 ug/mL (Normal) Range: 15-40 Comments: Detection Limit = 3 08-Abh-45950:11 Phenytoin (Dilantin) (94792) Comments: PATIENT WAS FASTINGPERFORMED BY: [facility] FeintFormerly [facility]6370 [facility] [id number]; review 09/21 Phenytoin (Dilantin), Serum 15.9 ug/mL (Normal) Range: 10.0-20.0 Comments: Detection Limit = 0.8 <0.8 Indicates None Detected 35-Xri-49552:11 METABOLIC PANEL, COMPREHENSIVE Comments: PATIENT WAS FASTINGPERFORMED BY: DonorsPlayRehabilitation Hospital of Southern New MexicoFhrnlg8379 [facility] [id number] (63505) ALT (SGPT) 16 [iU]/L (Normal) Range: 0-44 [...] Glucose, Serum 84 mg/dL (Normal) Range: 65-99 62-Hke-78745:11 CBC W/AUTO DIFF WBC (13162) Comments: PATIENT WAS FASTINGPERFORMED BY: DonorsPlaySt. Lawrence Rehabilitation CenterRyizpj1994 [facility] [id number] Immature Grans (Abs) 0.0 {x10E3/uL} (Normal) Range: [...] 4.14-5.80 WBC 5.3 {x10E3/uL} (Normal) Range: 3.4-10.8 25-Ivu-57316:11 Lyme Disease Antibody W/ Comments: PATIENT WAS FASTINGPERFORMED BY: [facility]6370 [facility] [id number] Reflex (71208) Lyme IgG/IgM Ab <0.91 {ISR} (Normal) Range: 0.00-0.90 Comments: Negative <0.91 Equivocal 0.91 - 1.09 Positive >1.09 2-Cey-480481:15 C-Reactive Protein (66853) Comments: PATIENT NOT FASTINGPERFORMED BY: [employer]6370 [facility] [id number] C-Reactive Protein, Quant 7.5 mg/L (Abnormal) Range: 0.0-4.9 :15 RHEUMATOID FACTOR-QUANT (50541) Comments: PATIENT NOT FASTINGPERFORMED BY: [employer] Ilwljf2029 [facility] [id number] RA Latex Turbid. <10.0 {IU/mL} (Normal) Range: 0.0-13.9 6-Yoh-356051:15 Lyme Disease Antibody W/ Comments: PATIENT NOT FASTINGPERFORMED BY: [employer]6370 [facility] [id number] Reflex (00118) Lyme IgG/IgM Ab <0.91 {ISR} (Normal) Range: 0.00-0.90 Comments: Negative <0.91 Equivocal 0.91 - 1.09 Positive >1.09 :45 CBC W/AUTO DIFF WBC (87166) Comments: PATIENT WAS FASTINGPERFORMED BY: [employer]6370 [facility] [id number] Immature Grans (Abs) 0.0 {x10E3/uL} (Normal) Range: [...] PANEL, COMPREHENSIVE Comments: PATIENT WAS FASTINGPERFORMED BY: LabCoSt. Lawrence Rehabilitation CenterHcujrs2729 [facility] [id number] (25390) ALT (SGPT) 40 [iU]/L (Normal) Range: 0-44 [...] (PROSTATE SPECIFIC Comments: PATIENT WAS FASTINGPERFORMED BY: [employer] Hzxqpe3953 [facility] [id number] ANTIGEN) (V76.44) Prostate Specific Ag, 2.6 ng/mL (Normal) Range: 0.0-4.0 Serum Comments: [employer] ECLIA methodology. .According to the [place] [employer], Serum PSA shoulddecrease and remain at undetectable levels after radicalprostatectomy. The AUA defines biochemical recurrence as an initialPSA value 0.2 ng/mL or greater followed by a subsequent confirmatoryPSA value 0.2 ng/mL or greater.Values obtained with d ifferent assay methods or kits cannot be usedinterchangeably. Results cannot be interpreted as absolute evidenceof the presence or absence of malignant disease. 69-Qsw-653729:32 DRUG ASSAY-PHENOBARBITOL (52703) Comments: PATIENT WAS FASTINGPERFORMED BY: [employer] Cdcpon1081 [facility] [id number] Phenobarbital, Serum 17 ug/mL (Normal) Range: 15-40 Comments: Detection Limit = 3 :32 Phenytoin (Dilantin) (76494) Comments: PATIENT WAS FASTINGPERFORMED BY: [employer] Qsqwzr6474 [facility] [id number] Phenytoin (Dilantin), Serum 14.8 ug/mL (Normal) Range: 10.0-20.0 Comments: Detection Limit = 0.8 <0.8 Indicates None Detected :32 METABOLIC PANEL, COMPREHENSIVE Comments: PATIENT WAS FASTINGPERFORMED BY: [employer] Tzwloj2414 [facility] [id number] (79784) ALT (SGPT) 18 [iU]/L (Normal) Range: 0-44 [...] Glucose, Serum 73 mg/dL (Normal) Range: 65-99 35-Ajg-129064:32 LIPID PANEL (54007) Comments: PATIENT WAS FASTINGPERFORMED BY: [employer]70 [facility] [id number] LDL/HDL Ratio 1.7 {ratio_units} (Normal) Range: 0.0-3.6 Comments: LDL/HDL Ratio Men Women 1/2 Avg.Risk 1.0 1.5 Av g.Risk 3.6 3.2 2X Avg.Risk 6.2 5.0 3X Avg.Risk 8.0 6.1 LDL Cholesterol Calc 100 mg/dL (Abnormal) Range: 0-99 VLDL Cholesterol Chyna 9 mg/dL (Normal) Range: 5-40 HDL Cholesterol 58 mg/dL (Normal) Triglycerides 47 mg/dL (Normal) Range: 0-149 Cholesterol, Total 167 mg/dL (Normal) Range: 100-199 41-Xut-590902:32 HGB A1C (96125) Comments: PATIENT WAS FASTINGPERFORMED BY: Presto Engineeringox RoadDublin [place] [id number] Hemoglobin A1c 5.6 % (Normal) Range: 4.8-5.6 Comments: . Pre-diabetes: 5.7 - 6.4 Diabetes: >6.4 Glycemic control for adults with diabetes: <7.0 :32 Vitamin D Hydroxy (73029) Comments: PATIENT WAS FASTINGPERFORMED BY: [facility]intSal[facility] Yxolra9831 [facility] [id number] Vitamin D, 25-Hydroxy 49.9 ng/mL (Normal) Range: 30.0-100.0 Comments: Vitamin D deficiency has been defined by the [place] of[place]icine and an Endocrine Society practice guideline as alevel of serum 25-OH vitamin D less than 20 ng/mL (1,2).The Endocrine Society went on to further define vitamin Dinsufficiency as a level between 21 and 29 ng/mL (2).1. IOM ([place] of Medicine). 2010. Dietary reference intakes for calcium and D. Heart [place]: The National Academies Press.2. Mely MF, Jus CASTILLO, Sophie GUARDADO, et al. Evaluation, treatment, and prevention of vitamin D deficiency: an Endocrine Society clinical practice guideline. JCEM. 2010; 96(7):1911-30. 88-Xwl-910435:32 C-REACT PROT HIGH SENS(hsCRP) Comments: PATIENT WAS FASTINGPERFORMED BY: [employer] Thonzv5009 [facility] [id number] (42677) C-Reactive Protein, Cardiac 7.94 mg/L (Abnormal) Range: 0.00-3.00 Comments: Relative Risk for Future Cardiovascular Event Low <1.00 Average 1.00 - 3.00 High >3.00 :56 Potassium Serum (52026) Comments: PATIENT NOT FASTINGPERFORMED BY: Aurora FeintFormerly [facility]6370 [facility] [id number] Information: [id number], 106716 Potassium, Serum 5.2 mmol/L (Normal) Range: 3.5-5.2 :29 Potassium Serum (78711) Comments: PATIENT NOT FASTINGPERFORMED BY: [facility]6370 [facility] [id number] Potassium, Serum 5.3 mmol/L (Abnormal) Range: 3.5-5.2 : DRUG ASSAY-PHENOBARBITOL (13740) Comments: PATIENT NOT FASTINGPERFORMED BY: [facility]6370 [facility] [id number] Phenobarbital, Serum 21 ug/mL (Normal) Range: 15-40 Comments: Detection Limit = 3 :29 Phenytoin (Dilantin) (20771) Comments: PATIENT NOT FASTINGPERFORMED BY: [facility]6370 [facility] [id number] Phenytoin (Dilantin), Serum 13.8 ug/mL (Normal) Range: 10.0-20.0 Comments: : Therapeutic 6.0 - 14.0 . Detectio n Limit = 0.8 <0.8 Indicates None Detected : HEPATITIS C ANTIBODY (49160) Comments: PATIENT NOT FASTINGPERFORMED BY: [facility]6370 [facility] [id number] Hep C Virus Ab <0.1 {s/co_ratio} (Normal) Range: 0.0-0.9 Comments: Negative: < 0.8 Indeterminate: 0.8 - 0.9 Positive: > 0.9 . The CDC recommends that a positive HCV antibody result be followed up with a HCV Nucleic Acid Amplification test (231053). :58 HGB A1C (04190) Comments: PATIENT WAS FASTINGPERFORMED BY: [facility]6370 [facility] [id number] Hemoglobin A1c 5.6 % (Normal) Range: 4.8-5.6 Comments: . Pre-diabetes: 5.7 - 6.4 Diabetes: >6.4 Glycemic control for adults with diabetes: <7.0 :58 CBC W/AUTO DIFF WBC (85258) Comments: PATIENT WAS FASTINGPERFORMED BY: [facility]6370 [facility] [id number] Immature Grans (Abs) 0.0 {x10E3/uL} (Normal) Range: [...] PANEL, COMPREHENSIVE Comments: PATIENT WAS FASTINGPERFORMED BY: LabCoSt. [facility] Rehabilitation CenterQjmflz3394 [facility] [id number] (06294) ALT (SGPT) 16 [iU]/L (Normal) Range: 0-44 [...] mg/dL (Normal) Range: 65-99 03-Nov-20169:58 LIPID PANEL (77074) Comments: PATIENT WAS FASTINGPERFORMED BY: LabCoSt. [facility] Rehabilitation CenterJfcnkl4370 [facility] [id number] LDL/HDL Ratio 1.6 {ratio_units} Range: 0.0-3.6 (Normal) [...] mmol/L (Normal) Comments: PATIENT NOT FASTINGPERFORMED BY: Aurora FeintFormerly [facility]6370 [facility] [place] [id number] 0:01 Range: 3.5-5.2 :58 C-REACT PROT HIGH SENS(hsCRP) Comments: PATIENT WAS FASTINGPERFORMED BY: DonorsPlaySt. [facility] Rehabilitation CenterAbycly4412 [facility]in [place] [id number] (83964) C-Reactive Protein, Cardiac 6.91 mg/L (Abnormal) Range: 0.00-3.00 Comments: Relative Risk for Future Cardiovascular Event Low <1.00 Average 1.00 - 3.00 High >3.00 :28 TESTOSTERONE FREE (65473) Comments: PATIENT NOT FASTINGPERFORMED BY: [facility] FeintFormerly [facility]6370 [facility] [id number] BY: [address] [id number] Free Testosterone(Direct) 2.7 pg/mL (Abnormal) Range: 6.6-18.1 :38 Phenytoin (Dilantin) (64969) Comments: PATIENT WAS FASTINGPERFORMED BY: [facility] FeintFormerly [facility]6370 [facility] [id number] Phenytoin (Dilantin), Serum 12.3 ug/mL (Normal) Range: 10.0-20.0 Comments: : Therapeutic 6.0 - 14.0 . Detectio n Limit = 0.8 <0.8 Indicates None Detected :38 Vitamin D Hydroxy (40740) Comments: PATIENT WAS FASTINGPERFORMED BY: Aurora FeintCoSt. Lawrence Rehabilitation CenterUrfjfo1327 [facility] Hospital[facility] [place] [id number] Vitamin D, 25-Hydroxy 57.6 ng/mL (Normal) Range: 30.0-100.0 Comments: Vitamin D deficiency has been defined by the [place] of[place]icine and an Endocrine Society practice guideline as alevel of serum 25-OH vitamin D less than 20 ng/mL (1,2).The Endocrine Society went on to further define vitamin Dinsufficiency as a level between 21 and 29 ng/mL (2).1. IOM ([place] of Medicine). 2010. Dietary reference intakes for calcium and D. Heart [place]: The National Academies Press.2. Mely MF, Jus CASTILLO, Sophie GUARDADO, et al. Evaluation, treatment, and prevention of vitamin D deficiency: an Endocrine Society clinical practice guideline. JCEM. 2010; 96(7):1911-30. :38 LIPID PANEL (31859) Comments: PATIENT WAS FASTINGPERFORMED BY: [employer] [facility] [id number] LDL/HDL Ratio 1.3 {ratio_units} (Normal) Range: 0.0-3.6 [...] CREATININE RATIO Comments: PATIENT WAS FASTINGPERFORMED BY: [employer] [facility] [id number] (33450) AND (98682) Microalb/Creat Ratio <3.2 {mg/g_creat} (Normal) Range: 0.0-30.0 Microalbumin, Urine <3.0 ug/mL (Normal) Creatinine, Urine 95.2 mg/dL (Normal) :38 METABOLIC PANEL, COMPREHENSIVE Comments: PATIENT WAS FASTINGPERFORMED BY: [employer] [facility] [id number] (21354) ALT (SGPT) 14 [iU]/L (Normal) Range: 0-44 [...] mg/dL (Normal) Range: 65-99 :38 HGB A1C (60862) Comments: PATIENT WAS FASTINGPERFORMED BY: LabCoSt. Lawrence Rehabilitation CenterOjggvg1252 [facility] [id number] Hemoglobin A1c 5.6 % (Normal) Range: 4.8-5.6 Comments: . Pre-diabetes: 5.7 - 6.4 Diabetes: >6.4 Glycemic control for adults with diabetes: <7.0 :38 C-REACT PROT HIGH SENS(hsCRP) Comments: PATIENT WAS FASTINGPERFORMED BY: [place] 1679670 [facility] [id number] (10719) C-Reactive Protein, Cardiac 16.47 mg/L (Abnormal) Range: 0.00-3.00 Comments: Relative Risk for Future Cardiovascular Event Low <1.00 Average 1.00 - 3.00 High >3.00 :28 PSA (PROSTATE SPECIFIC Comments: PATIENT NOT FASTINGPERFORMED BY: [place] 1679670 [facility] [id number] BY: [address] [id number] ANTIGEN) (V76.44) Prostate Specific Ag, 1.6 ng/mL (Normal) Range: 0.0-4.0 Serum Comments: [employer] ECLIA methodology. .According to the [place] [employer] Association, Serum PSA shoulddecrease and remain [...] Phenytoin (Dilantin) Comments: PATIENT NOT FASTINGPERFORMED BY: Aurora FeintFormerly [facility]6370 [facility] [id number] BY: [address] [id number] (85589) Phenytoin (Dilantin), Serum 18.8 ug/mL (Normal) Range: 10.0-20.0 Comments: : Therapeutic 6.0 - 14.0 . Detectio n Limit = 0.8 <0.8 Indicates None Detected 19-Yfz-582180:24 Phenytoin (Dilantin) Comments: PATIENT NOT FASTINGPERFORMED BY: [facility]6370 [facility] [id number] Information: [id number] (14396) Phenytoin (Dilantin), Serum 15.8 ug/mL (Normal) Range: 10.0-20.0 Comments: : Therapeutic 6.0 - 14.0 . Detectio n Limit = 0.8 <0.8 Indicates None Detected 50-Hxl-209119:19 Phenytoin (Dilantin) (79153) Comments: Order Date: 04/08/16Order Date: 04/08/16Time Med[facility] is to be [facility]? [facility] [address] [place], [place], [address] PHENYTOIN 21.2 mL (Abnormal) Range: 10.0-20.0 Comments: Resulst Called to Charline 04/08/16 at 1450 by CCRYTZER.Results read back by Charline. 90-Cgg-185987:34 CBC W/Diff, Automated Comments: [facility] [address] [place], [place], [address] Absolute Lymph 2.34 {X10_3/ul} (Normal) Range: 0.83-4.51 [...] Range: 4.4-11.0 :34 Comprehensive Metabolic Profil Comments: [facility] [address]otp[address] [place], [place], [address] GAP 4 (Abnormal) Range: 5-15 CO2 31.0 [...] mg/dL (Normal) Range: 70-110 :34 Magnesium Comments: [facility] Mtxbgxefwp0249 [place], [address] MG 2.2 mg/dL (Normal) Range: 1.8-2.4 43-Zlb-981335:34 Phenobarbital Comments: Time Medication is to be Given? 0000[facility] Eykoojbsmz4878 [place], [address] PHENOBARB 22.0 ug/mL (Normal) Range: 10.0-40.0 32-Vyi-417481:34 Phenytoin (Dilantin) Level Comments: Time Medication is to be Given? 0000[facility] [address] [place], [address] PHENYTOIN 28.3 mL (Abnormal) Range: 10.0-20.0 Comments: Critical Result(s) Called at: 14:19:48 04/07/2016 by: Katlin kahn at [facility] 33-Ozt-154982:34 Thyroid Stim Hormone (TSH) Comments: [facility] Cvmjnmedrt[address] [place], [address] TSH 1.55 {uIU/mL} (Normal) Range: 0.358-3.74 44-Pae-381716:34 Vitamin B12 1009 pg/mL (Abnormal) Comments: [facility] Tmngskzzfz8197 [place], [id number](966 Range: 211-911 :11 CBC W/Diff, Automated Comments: [facility] Enophyckmf9008 [address] [place], [address] Absolute Lymph 1.51 {X10_3/ul} (Normal) Range: 0.83-4.51 [...] 4.6-6.2 WBC 5.0 K/mm3 (Normal) Range: 4.4-11.0 45-Ios-01714:11 Comprehensive Metabolic Profil Comments: [facility] [address] [place], [address] GAP 7 (Normal) Range: 5-15 CO2 25.0 [...] (Normal) Range: 70-110 :11 Lipid Profile Comments: [facility] [address] [place], [address] VLDL 10 mg/dL (Normal) Range: [...] Comments: Time Medication is to be Given? 0000[facility] [address] [place], [address] PHENOBARB 19.8 ug/mL (Normal) Range: 10.0-40.0 :11 Phenytoin (Dilantin) Level Comments: Time Medication is to be Given? 0000[facility] [address] [place], [address] PHENYTOIN 17.4 mL (Normal) Range: 10.0-20.0 :11 Vitamin D,25 Hydroxy Comments: [facility] [address] [place], [address] Vitamin D 25-OH 42.5 ng/mL (Normal) Comments: Vitamin D 25(OH) Status Range Deficiency <20 ng/mL (50nmol/L) Insuffciency 20 - 30 ng/mL (50 - 75 nmol/L) Sufficiency 30 - 100 ng/mL (75 - 250 nmol/L) Toxicity >100 ng/mL (>250 nmol/L) 04-Nov-20158:15 COLON BIOPSY (CHOOSE See Note (Normal) Comments: [facility] [address] [place], [address] SITE) Comments: Patient: CHELI NEUMANN : 1950 (64/M) Acct Num: [id number] Phys: Landon Werner Unit Num: [id number] Loc: LABSPEC Specimen: [id number] Received: 11/04/15 - [...] one cassette. / CHRISTIN:desirae 05/01/16 TC:1 CPT: 70521 HEADER OPERATION: Colonoscopy with biopsy PRE-OP DIAGNOSIS: History of polyps TISSUE SUBMITTED: Polyp transverse colon, rule out adenoma MICROSCOPIC DESCRIPTION Slides are reviewed. MICROSCOPIC DIAGNOSIS Polyp trans verse colon, biopsy: Fragments of tubular adenoma. CHRISTIN:whit 11/06/15 Signed Tanner Carey 11/06/15 <signature on file> :13 Lipid Profile Comments: [facility] [address] [place], [address] VLDL 13 mg/dL (Normal) Range: 5-40 LDL [...] Comments: Time Medication is to be Given? 2099[facility] [address] [place], [address] PHENOBARB 19.2 ug/mL (Normal) Range: 10.0-40.0 :13 Phenytoin (Dilantin) Level Comments: Time Medication is to be Given? 2099[facility] [address] [place], [address] PHENYTOIN 19.8 mL (Normal) Range: 10.0-20.0 :13 Vitamin D,25 Hydroxy Comments: [facility] [address] [place], [address] Vitamin D 25-OH 30.7 ng/mL (Normal) Comments: Vitamin D 25(OH) Status Range Deficiency <20 ng/mL (50nmol/L) Insuffciency 20 - 30 ng/mL (50 - 75 nmol/L) Sufficiency 30 - 100 ng/mL (75 - 250 nmol/L) Toxicity >100 ng/mL (>250 nmol/L); ADDENDA: non-emergent till apt :11 CBC W/Diff, Automated Comments: Test performed at:[facility] [address] [place] [address] ; will reivew at 02/17 appt [...] 31-Jan-20157:11 Comprehensive Metabolic Profil Comments: Test performed at:[facility] J[address]pyobvz2645 [place], [place] [address] GAP 6 (Normal) Range: 5-15 CO2 25.0 [...] 70-110 :11 Lipid Profile Comments: Test performed at:[facility] [address] [place] [address] VLDL 12 mg/dL (Normal) Range: [...] Medication is to be Given? ??2000Test performed at:[facility] [address] ??[place], [place] ??[address] PHENOBARB 19.4 ug/mL (Normal) Range: 10.0-40.0 :11 Phenytoin (Dilantin) Level Comments: Time Medication is to be Given? 2000Test performed at:[facility] [address] [place] [address] PHENYTOIN 18.1 ug/mL (Normal) Range: 10.0-20.0 :11 PSA,Total - Annual Screen Comments: Test performed at:[facility] [address] [place] [address] PSA,TOT SCREEN 2.27 ng/mL (Normal) Range: 0.00-4.00 Comments: This test was performed using the TPSA assay method for [employer] chemistry system. Values obtained with differentassay methods cannot be used interchangably.When changing PSA assays in the course of monitoring apatient, additional sequential testing should be carriedout to confirm baseline values. :11 Vitamin D,25 Hydroxy Comments: Test performed at:[facility] Ro[address]slmnup[address] [facility] [place] [address] Vitamin D 25-OH 34.3 ng/mL (Normal) Comments: Vitamin D 25(OH) Status Range Deficiency <20 ng/mL (50nmol/L) Insuffciency 20 - 30 ng/mL (50 - 75 nmol/L) Sufficiency 30 - 100 ng/mL (75 - 250 nmol/L) Toxicity >100 ng/mL (>250 nmol/L) :04 Phenobarbital Comments: Has pt arrived? YTime Medication is to be Given? 0000Test performed at:[facility] [address] [place] [address] PHENOBARB 18.5 ug/mL (Normal) Range: 10.0-40.0 :04 Phenytoin (Dilantin) Level Comments: Has pt arrived? YTime Medication is to be Given? 0000Test performed at:[facility] [address] [place] [address] PHENYTOIN 16.3 ug/mL (Normal) Range: 10.0-20.0 3-Emz-911085:28 Phenytoin (Dilantin) Level Comments: CRITICAL VALUE REPEATED AND VERIFIED. CALLED TO Khurram DICKSON09/06/14 Christin Moya.RESULTS READ BACK BY SAME.Time Medication is to be Given? 1000Test performed at:[facility] Labo [address] [place] [address] PHENYTOIN 22.4 ug/mL (Abnormal) Range: 10.0-20.0 :19 CBC W/Diff, Automated Comments: Has pt arrived? YTest performed at:[facility] [address]kdpz[address] ??[place], [place] ??[address] Absolute Lymph 1.89 {X10_3/ul} (Normal) [...] Profil Comments: Has pt arrived? YTest performed at:[facility] Ktksrystqa3821 [facility] [place] [address] GAP 5 (Normal) Range: 5-15 [...] Profile Comments: Has pt arrived? YTest performed at:[facility] [address] [place] [address] VLDL 12 mg/dL (Normal) Range: [...] Hydroxy Comments: Has pt arrived? YTest performed at:[facility] Wmepuuzsot8278 [facility] [place] [address] Vitamin D 25-OH 31.9 ng/mL (Normal) Comments: Vitamin D 25(OH) Status Range Deficiency <20 ng/mL (50nmol/L) Insuffciency 20 - 30 ng/mL (50 - 75 nmol/L) Sufficiency 30 - 100 ng/mL (75 - 250 nmol/L) Toxicity >100 ng/mL (>250 nmol/L) 8-Eun-431498:46 Aerobic Bacterial Culture Comments: PATIENT NOT FASTINGPERFORMED BY: LabCoOlivia Ville 9859470 [facility] [id number] Result 1 Mixed skin olivia (Normal) Aerobic Bacterial Culture Final report (Normal) :07 DRUG ASSAY-PHENOBARBITOL Comments: PATIENT NOT FASTINGPERFORMED BY: LabCoSt. [facility] Rehabilitation CenterEphmpj7772 [facility] [id number] Information: [id number] DRAW FEE (53103) Phenobarbital, Serum 15 ug/mL (Normal) Range: 15-40 Comments: Detection Limit = 2 <2 indicates None Detected :33 DRUG ASSAY-PHENOBARBITOL Comments: PATIENT NOT FASTINGPERFORMED BY: LabCo[address] [id number] Information: [id number] (73759) Pentobarbital None Detected ug/mL (Normal) Range: 1-5 [...] CHOL 158 mg/dL (Normal) Comments: <200 mg/dL Rxffkdgxg229-339 mg/dL Borderline>240 mg/dL High Risk :16 PSA 1.08 ng/mL (Normal) Range: 0.00-4.00 Comments: This test was performed using the TPSA assay method for [employer] chemistry system. Values obtained with differentassay methods [...] >100 ng/mL (>250 nmol/L) :33 Rapid Flu (29287 x 2) Comments: neg Influenza A Ag [...] CHOL 169 mg/dL (Normal) Comments: <200 mg/dL Dmthemclo018-855 mg/dL Borderline>240 mg/dL High Risk TRIG 58 [...] - 250 nmol/L)Toxicity >100 ng/mL (>250 nmol/L) 19-Koc-805688:13 DEXA BONE DENSITY STUDY (HP) Radiology Report [...] is considered osteoporotic, as outlined above, according [facility] (WHO) cri teria. Fracture risk [...] Cunha M.D.September 26, 2012 at 4:13:45 PM [phone] Signed GP/GP If you are the referring physician and would like to consult with theradiologist who provided this interpretation, please contact Connie Gutiérrez at [phone]. If this radiologist is unavailable, youwill be directed to [facility] radiologist to assist. If you are a patient with a question regarding this report, pleasecontactyour referring physician directly. Professional Interpretation Provided By: [employer], Phone , These documents contain legally protected [...] 09/26/12 1633 Sign by: Charbel Cunha MD 94-Aqi-58025:07 CBCMD RBCM NORM C+C {NORMAL} (Normal) PE [...] D deficiency has been defined by the [place] of[place] and an Endocrine Society practice guideline as alevel of serum 25-OH vitamin D less than 20 ng/mL (1,2).The Endocrine Society went on to further define vitamin Dinsufficiency as a level between 21 and 29 ng/mL (2).1. IOM ([place] of [employer]). 2010. Dietary reference intakes for calcium and D. Heart [place]: The National Academies Press.2. Mely MF, Jus CASTILLO, Sophie GUARDADO, et al. Evaluation, treatment, and prevention of vitamin D deficiency: an Endocrine Society clinical practice guideline. JCEM. 2010; 96(7): 1911-30.Performed at: [facility] [address] [id number] Director: Keith Nance PhD, Phone: [phone] DIL 12.4 ug/mL (Normal) Range: 10.0-20.0 [...] D deficiency has been defined by the [place] of[place] and an Endocrine Society practice guideline as alevel of serum 25-OH vitamin D less than 20 ng/mL (1,2).The Endocrine Society went on to further define vitamin Dinsufficiency as a level between 21 and 29 ng/mL (2).1. IOM ([place] of [employer]). 2010. Dietary reference intakes for calcium and D. Heart [place]: The National Academies Press.2. Mely MF, Jus CASTILLO, Sophie GUARDADO, et al. Evaluation, treatment, and prevention of vitamin D deficiency: an Endocrine Society clinical practice guideline. JCEM. 2010; 96(7): 1911-30.Performed at: [address] [id number] Director: Jacquelyn Charles MD, Phone: [phone] 13-Gvd-924289:28 LOWER EXT.JOINT ONLY (ROUTINE) Radiology Report See [...] anthony Signed DAVIDE/DAVIDE Professional Interpretation Provided By: [facility], , To consult with a radiologist regarding this report, please call our 2 6E2erudama line @ Dictated on 12/24/111334 by Tomas [...] ng/mL (Normal) Range: 0.0-4.0 :08 TEST FR [id number] 5.0 pg/mL (Abnormal) Range: 6.6-18.1 Comments: Performed at: - [facility] [id number] [place], [place] [id number] Director: Jacquelyn Charles MD, Phone: [phone] at: [facility] [id number] Director: Joseph Sevilla MD, Phone: [phone] TSH 0.98 {uIU/mL} (Normal) Range: 0.358-3.74 :08 VIT D,25 54441 30.9 ng/mL (Abnormal) Range: 32.0-100.0 Comments: Effective July 19, 2011 Vitamin D, 25-Hydroxy reference intervals will be changing to 30-100. .Recent studies consider the lower li alta of 32.0 ng/mL to be athreshold for optimal health.Horace ROBLES. J Nutr. 2004;135(2):317-22. 7-Fqm-247935:57 DEXA BONE DENSITY STUDY (HP) Radiology Report See Note (Normal) Comments: Exam Number: [id number] LINICAL:This is a 59-year-old male patient with history of osteopenia. EXAMINATION:DUAL ENERGY X-RAY ABSORPTIOMETRY / DEXA. TECHNIQUE:Bone Density Measurements (BMD) of lumbar spi ne and bilateral hips were obtained using a Yieldr scanner.. COMPARISON:Comparison is made with prior examination [...] Report See Note (Normal) Comments: Exam Number: [id number] LINICAL:59-year-old male complains of shortness of breath. [...] 3.7 mg/dL (Normal) Range: 2.5-4.9 :35 :35 PROT.[id number] GAMMA GLOB,U 19.7 % (Normal) M-SPIKE,U SeeNote % (Normal) Comments: Result: Not Observed NOTE Comment (Normal) Comments: Protein electrophoresis scan will follow via computer,mail, or supervisor cartography delivery. ALBUMIN,UR 26.3 % (Normal) YXHQM-0-XKUQ,U 2.7 % (Normal) OWZUS-9-GRHD,U 12.9 % (Normal) BETA GLOB,U 38.4 % (Normal) PROTEIN,UR 6.2 mg/dL (Normal) Range: 0.0-15.0 :35 PTH,Intact 42 pg/mL (Normal) Range: 14-72 :35 SPE [id number] A/G RATIO 1.4 (Normal) Range: 0.7-2.0 INTERPRETATION Comment (Normal) Comments: The SPE pattern appears essentially unremarkable. Evidenceof monoclonal protein is not apparent.Protein electrophoresis scan will follow via computer,mail, or supervisor cartography delivery. ALBUMIN 3.9 g/dL (Normal) Range: 3.2-5.6 ALPHA-1 GLOBUL 0.3 g/dL (Normal) Range: 0.1-0.4 ALPHA-2 GLOBUL 0.7 g/dL (Normal) Range: 0.4-1.2 BETA GLOBULIN 0.8 g/dL (Normal) Range: 0.6-1.3 GAMMA GLOBULIN 0.9 g/dL (Normal) Range: 0.5-1.6 GLOBULIN, TOTAL 2.7 g/dL (Normal) Range: 2.0-4.5 M-SPIKE SeeNote g/dL (Normal) Comments: Result: Not Observed PROTEIN,TOTAL 6.6 g/dL (Normal) Range: 6.0-8.5 :35 TEST FR [id number] 3.4 pg/mL (Abnormal) Range: 6.6-18.1 :35 TSH 0.89 {uIU/mL} (Normal) Range: 0.358-3.74 :35 VIT D,25 51532 35.5 ng/mL (Normal) Range: 32.0-100.0 Comments: Recent studies consider the lower limit of 32.0 ng/mL to harsh threshold for optimal health.Horace ROBLES. J Nutr. 2004;135(2):317-22.Performed at: [place] [address] Director: Jacquelyn Charles MD, Phone: [phone] at: BN - [facility] [address] [id number] Director: Joseph Sevilla MD, Phone: [phone] Plan of Care Name Dates Details Instructions [...] Indication: Seizure disorder Planned Observations DRUG ASSAY-PHENOBARBITOL (79785)Indication: Generalized convulsive seizure On: 47-Ygc-766512:04 Request Phenytoin (Dilantin) (88123)Indication: Generalized convulsive seizure On: 79-Xiv-701282:04 Request LIPID PANEL (40212)Indication: Bilateral carotid artery stenosis On: 06-Tvr-394441:03 Request C-REACT PROT HIGH SENS(hsCRP) (65234)Indication: Elevated high sensitivity C-reactive protein On: 44-Oed-491621:03 Request CBC with auto diff (76009)Indication: Elevated hemoglobin A1c On: 78-Zll-190849:02 Request MICROALBUMIN: CREATININE RATIO (93446) AND (32296)Indication: Elevated hemoglobin A1c On: 80-Ifs-410836:02 Request METABOLIC PANEL, COMPREHENSIVE (07544)Indication: Elevated hemoglobin A1c On: 51-Onu-424371:02 Request HGB A1C (56475)Indication: Elevated hemoglobin A1c On: 60-Nwf-276792:02 Request Phenytoin (Dilantin) (54976)Indication: Generalized convulsive seizure On: 0-Gjk-462022:40 Request CBC with auto diff (31099)Indication: Anemia On: 2-Gxp-237282:40 Request METABOLIC PANEL, COMPREHENSIVE (75399)Indication: Elevated hemoglobin A1c On: 1-Mty-247026:39 Request DRUG ASSAY-PHENOBARBITOL (57073)Indication: Generalized convulsive seizure On: 21-Rcy-802710:38 Request FECAL OCCULT- Tubes sent home (95667)Indication: Anemia On: 93-Epa-085975:31 Request IRON (33708)Indication: Anemia On: 48-Ivv-065080:31 Request LIPID PANEL (37376)Indication: Hyperlipidemia On: 26-Nqs-977067:30 Request METABOLIC PANEL, COMPREHENSIVE (93433)Indication: Elevated hemoglobin A1c On: 79-Bms-489036:29 Request HGB A1C (09748)Indication: Elevated hemoglobin A1c On: 75-Uho-513992:29 Request HGB A1C (14402)Indication: Prediabetes On: 2-Wei-787186:17 Request CBC with auto diff (44654)Indication: Generalized convulsive seizure On: 1-Fyr-456070:13 Request C-REACT PROT HIGH SENS(hsCRP) (79679)Indication: Elevated high sensitivity C-reactive protein On: 6-Zbx-457751:13 Request LIPID PANEL (94956)Indication: Bilateral carotid artery stenosis On: 5-Jsm-261855:12 Request METABOLIC PANEL, COMPREHENSIVE (46540)Indication: Bilateral carotid artery stenosis On: 6-Oah-522523:12 Request Phenytoin (Dilantin) (93049)Indication: Generalized convulsive seizure On: 5-Euk-268641:00 Request Comments: 1 month Metabolic Panel, Basic (36931)Indication: Dizziness On: :14 Request DRUG ASSAY-TOT PHENYTOIN (62185)Indication: Poisoning by phenytoin, accidental or unintentional, subsequent encounter On: :35 Request Magnesium (08811)Indication: Dizziness On: :28 Request Comments: stat CBC W/AUTO DIFF WBC (73341)Indication: Dizziness On: : Request Comments: stat TSH (64200)Indication: Dizziness On: : Request Comments: stat METABOLIC PANEL, COMPREHENSIVE (94233)Indication: Dizziness On: : Request Comments: stat DRUG ASSAY-PHENOBARBITOL (27529)Indication: Dizziness On: :18 Request Comments: stat Phenytoin (Dilantin) (77300)Indication: Dizziness On: :18 Request Comments: stat VITAMIN B-12 (CYANOCOBALAMIN) (24127)Indication: Dizziness On: :13 Request DRUG ASSAY-PHENOBARBITOL (88186)Indication: Seizure disorder On: :26 Request Phenytoin (Dilantin) (97619)Indication: Seizure disorder On: :26 Request PSA (PROSTATE SPECIFIC ANTIGEN) (V76.44)Indication: Screening for prostate cancer On: :25 Request METABOLIC PANEL, COMPREHENSIVE (75711)Indication: Bilateral carotid artery stenosis On: :24 Request LIPID PANEL (06745)Indication: Bilateral carotid artery stenosis On: :24 Request Vitamin D Hydroxy (54750)Indication: Vitamin D deficiency, unspecified On: :24 Request Phenytoin (Dilantin) (09796)Indication: Seizure disorder On: :09 Request DRUG ASSAY-PHENOBARBITOL (22207)Indication: Seizure disorder On: 37-Rcx-590063:09 Request PSA (PROSTATE SPECIFIC ANTIGEN) (V76.44)Indication: Encounter for screening for malignant neoplasm of prostate (Renamed from Screening for prostate cancer) On: :09 Request CBC W/AUTO DIFF WBC (87316)Indication: Seizure disorder On: :09 Request METABOLIC PANEL, COMPREHENSIVE (02087)Indication: Seizure disorder On: :09 Request LIPID PANEL (24209)Indication: Bilateral carotid artery stenosis On: :09 Request Vitamin D Hydroxy (25519)Indication: Vitamin D deficiency, unspecified On: :08 Request METABOLIC PANEL, COMPREHENSIVE (44159)Indication: Osteoporosis On: :08 Request LIPID PANEL (59572)Indication: Bilateral carotid artery stenosis On: :52 Request DRUG ASSAY-PHENOBARBITOL (76361)Indication: Seizure disorder On: :52 Request Phenytoin (Dilantin) (94519)Indication: Seizure disorder On: :51 Request Vitamin D Hydroxy (14890)Indication: Vitamin D deficiency, unspecified On: :51 Request DRUG ASSAY-PHENOBARBITOL (46138)Indication: Seizure disorder On: :10 Request PSA (PROSTATE SPECIFIC ANTIGEN) (V76.44)Indication: Screening for prostate cancer On: :10 Request CBC W/AUTO DIFF WBC (95757)Indication: Seizure disorder On: : Request METABOLIC PANEL, COMPREHENSIVE (68148)Indication: Seizure disorder On: :09 Request LIPID PANEL (18568)Indication: Bilateral carotid artery stenosis On: :09 Request Phenytoin (Dilantin) (68318)Indication: Seizure disorder On: :06 Request Vitamin D Hydroxy (37739)Indication: Osteoporosis On: :00 Request DRUG ASSAY-PHENOBARBITOL (96480)Indication: Seizure disorder On: :49 Request Phenytoin (Dilantin) (81802)Indication: Seizure disorder On: :49 Request Phenytoin (Dilantin) (87388)Indication: Cardiac dysrhythmia On: 5-Udr-481404:01 Request Culture, Aerobic, Bacterial ID ([id number])Indication: Sebaceous cyst of ear On: 4-Knw-506359:55 Request CBC WITH MANUAL DIFF (73541)Indication: Seizure disorder On: :49 Request METABOLIC PANEL, COMPREHENSIVE (60135)Indication: Osteoporosis On: :49 Request LIPID PANEL (82505)Indication: Bilateral carotid artery stenosis On: :49 Request Vitamin D Hydroxy (78699)Indication: Vitamin D deficiency, unspecified On: :46 Request CBC WITH MANUAL DIFF (46908)Indication: Seizure disorder On: :02 Request METABOLIC PANEL, COMPREHENSIVE (98475)Indication: Seizure disorder On: :02 Request LIPID PANEL (11738)Indication: Bilateral carotid artery stenosis On: :02 Request Phenytoin (Dilantin) (84117)Indication: Seizure disorder On: :01 Request Vitamin D Hydroxy (49419)Indication: Vitamin D deficiency, unspecified On: 36-Voe-02120:59 Request PSA (PROSTATE SPECIFIC ANTIGEN) (V76.44)Indication: Screening for prostate cancer On: :57 Request Phenytoin (Dilantin) (80329)Indication: Seizure disorder On: 49-Qbu-421735:03 Request CBC WITH MANUAL DIFF (58734)Indication: Osteoporosis On: 30-Drq-706699:03 Request METABOLIC PANEL, COMPREHENSIVE (15246)Indication: Osteoporosis On: 46-Gdu-067758:03 Request LIPID PANEL (86795)Indication: Bilateral carotid artery stenosis On: 90-Gdc-073470:03 Request Vitamin D Hydroxy (61415)Indication: Vitamin D deficiency, unspecified On: 68-Pgp-754291:02 Request TSH (18087)Indication: Osteoporosis On: 25-Iib-392516:02 Request DRUG ASSAY-PHENOBARBITOL (97996)Indication: Seizure disorder On: 85-Tjh-756027:49 Request CBC with manual diff (02878)Indication: Encounter for long-term (current) use of medications On: 09-Ecg-174484:47 Request Metabolic Panel, Comprehensive (22905)Indication: Encounter for long-term (current) use of medications On: 79-Mnu-601386:47 Request Lipid Panel (28866)Indication: Encounter for long-term (current) use of medications On: 27-Rho-907289:47 Request PSA (PROSTATE SPECIFIC ANTIGEN) (56353)Indication: Screening for prostate cancer On: 55-Stl-741315:47 Request Phenytoin (Dilantin) (02027)Indication: Seizure disorder On: 58-Azg-160110:45 Request CALCIFEDIOL (06267)Indication: Vitamin D deficiency, unspecified On: 37-Bas-777567:44 Request DRUG ASSAY-PHENOBARBITOL (14398)Indication: Encounter for long-term (current) use of medications On: 09-Far-65055:32 Request DRUG ASSAY-PHENOBARBITOL (82886)Indication: Encounter for long-term (current) use of medications On: 13-Fbm-828846:58 Request Vitamin D Hydroxy (84918)Indication: Vitamin D deficiency, unspecified On: 45-Mxl-855983:32 Request METABOLIC PANEL, COMPREHENSIVE (94696)Indication: Seizure disorder On: 91-Ulv-757387:32 Request CBC WITH MANUAL DIFF ([id number])Indication: Seizure disorder On: 44-Cxg-164627:32 Request Phenytoin (Dilantin) (49718)Indication: Seizure disorder On: 92-Rxe-393274:32 Request Phenytoin (Dilantin) (99784)Indication: Seizure disorder On: 31-Bmc-991635:12 Request Phenytoin (Dilantin) (30658)Indication: Seizure disorder On: 09-Jze-789640:05 Request Comments: 2 weeks PSA (PROSTATE SPECIFIC ANTIGEN) (V76.44)Indication: Screening for prostate cancer On: :30 Request TESTOSTERONE FREE (75378)Indication: Testicular hypofunction On: 33-Nwe-218857:29 Request LIPID PANEL (14521)Indication: Hypoglycemia On: :28 Request Vitamin D Hydroxy (49788)Indication: Vitamin D deficiency, unspecified On: :27 Request TSH (91724)Indication: Osteoporosis On: :27 Request CBC WITH MANUAL DIFF (32082)Indication: Seizure disorder On: :27 Request METABOLIC PANEL, COMPREHENSIVE (49867)Indication: Seizure disorder On: :27 Request Phenytoin (Dilantin) (17314)Indication: Seizure disorder On: :27 Request CBC WITH MANUAL DIFF (45501)Indication: Osteoporosis On: 57-Skb-983999:09 Request METABOLIC PANEL, COMPREHENSIVE (29142)Indication: Seizure disorder On: 07-Lbj-102167:09 Request TESTOSTERONE FREE (84637)Indication: Testicular hypofunction On: :57 Request Vitamin D Hydroxy (04040)Indication: Vitamin D deficiency, unspecified On: 65-Asq-433634:57 Request Phenytoin (Dilantin) (80536)Indication: Seizure disorder On: 60-Dde-228277:03 Request TESTOSTERONE FREE (43190)Indication: Osteoporosis On: :09 Request Vitamin D Hydroxy (83200)Indication: Osteoporosis On: :03 Request TSH (18082)Indication: Osteoporosis On: :03 Request UPEP (96708)Indication: Osteoporosis On: :03 Request SPEP (93819)Indication: Osteoporosis On: 91-Cvq-287402:03 Request PHOSPHORUS (40703)Indication: Osteoporosis On: :03 Request PARATHORMONE (70002)Indication: Osteoporosis On: 03-Kwx-737960:03 Request Planned Encounters Medical; [facility] 3 Month FU - On: 29-Sep-2018 9:45 [facility] Fast DO, Jessica A Fast DO, Jessica A Planned Procedures ELECTROCARDIOGRAM, COMPLETE (ECG) On: 28-Jun-2018 Intent (69356)By: Fast DO, Jessica A Fast DO, Comments: ekg showed normal sinus rhythym, normal axis, no acute st/t wave changes sinus lokesh Jessica A Flu Vaccine (Quadrivalent) 66688Eh: On: 14-Jun-2018 Intent Fast DO, Jessica A Fast DO, Ejssica A Comments: Lot #[id number]/30/2019Site-L dltd, IMDose prefilled syringegiven by: Yuly reviewed and ABN signed Radiology - Lumbar SpineBy: Fast DO, On: 21-Mar-2018 Intent Jessica A Fast DO, Jessica A Cartoid DopplerBy: Fast DO, Jessica A On: 21-Dec-2017 Intent Fast DO, Jessica A ELECTROCARDIOGRAM, COMPLETE (ECG) On: 20-Jun-2017 Intent (51821)By: Fast DO, Jessica A Fast DO, Comments: ekg showed normal sinus rhythym, normal axis, no acute st/t wave changes junctional lokesh Jessica A Ultrasound - ThyroidBy: Fast DO, On: 20-Jun-2017 Intent Jessica A Fast DO, Jessica A Flu Vaccine (Quadrivalent) 02213Nr: On: 20-Jun-2017 Intent Fast DO, Jessica A [...] DO, Jessica A DEXA SCAN AXIAL SKELETON (25649)By: On: 05-Nov-2016 Intent Fast DO, Jessica A Fast DO, Jessica A Comments: january Cartoid DopplerBy: Fast DO, Jessica A On: 05-Nov-2016 Intent Fast DO, Jessica A Comments: november PNEUM VAC ADLT/IMUMNOSPR, SBC/INTRM On: 05-Nov-2016 Intent ([id number])By: Fast DO, Jessica A Fast DO, Comments: lot: [id number]: 02/05/18ite/route: L del/IMamt: 0.5mLVIS signed when applicableChelsea, RIB BUILDER Jessica A CT - Brain/Head (IV Contrast On: 05-May-2016 Intent Needed)By: Fast DO, Jessica A Fast DO, Jessica A Ultrasound - ThyroidBy: Fast DO, On: 05-May-2016 Intent Jessica A Fast DO, Jessica A Flu Vaccine (Quadrivalent) 21150Sy: On: 05-May-2016 Intent Fast DO, Jessica A Fast DO, Jessica A Comments: FLUlot: [id number]:02/25/17site:rt deltoidroute:IMdose:.5mlDEMICK, MA ELECTROCARDIOGRAM, COMPLETE (ECG) On: 14-Apr-2016 Intent (99575)By: Fast DO, Jessica A Fast DO, Comments: ekg showed sinus lokesh normal axis no acute change Jessica A Echo CompleteBy: Fast DO, Jessica A On: 14-Apr-2016 Intent Fast DO, Jessica A Nuclear Stress Test/Stress On: 14-Apr-2016 Intent SPECT/TreadmillBy: Fast DO, Jessica A Fast DO, Jessica A Overnight Pulse Ox(95373)By: Hola DO, On: 23-Oct-2015 Intent Jessica A Fast DO, Jessica A Six Minute Walk Assessment (97872)By: On: 23-Oct-2015 Intent Fast DO, Jessica A Fast DO, Jessica A Ultrasound - AortaBy: Fast DO, Jessica On: 08-Aug-2015 Intent A Fast DO, Jessica A Flu Vaccine (Quadrivalent) 33616Ow: On: 08-Aug-2015 Intent Fast DO, Jessica A Fast DO, Jessica A Comments: lot [id number]: 02/26/2016site/route L shala, IMamt 0.5mlVIS and ABN signed when applicableChelsea, RIB BUILDER Six Minute Walk Assessment (83144)By: On: 08-Aug-2015 Intent Fast DO, Jessica A Fast DO, Jessica A Overnight Pulse OX (29711)By: Fast On: 08-Aug-2015 Intent DO, Jessica A Fast DO, Jessica A Cartoid DopplerBy: Fast DO, Jessica A On: 08-Aug-2015 Intent Fast DO, Jessica A IMMUNIZ ADMNIN, 1 VAC, SNGL/COMBO On: 17-Feb-2015 Intent (45564)By: Fast DO, Jessica A Fast DO, Jessica A DEXA SCAN AXIAL SKELETON (76541)By: On: 07-Oct-2014 Intent Fast DO, Jessica A Fast DO, Jessica A Flu Vaccine (Quadrivalent) 90441Hq: On: 03-Jul-2014 Intent Fast DO, Jessiac A Fast DO, Jessica A Comments: lot:[id number]:dose:0.5mLRoute: IMlocation: L armgiven by: msmith ADMINISTRATION OF INFLUENZA VIRUS On: 03-Jul-2014 Intent VACCINE ([id number])By: Fast DO, Jessica A Fast DO, Jessica A Holter Monitor 24 hrsBy: Fast DO, On: 15-Mar-2014 Intent Jessica A Fast DO, Jessica A Cartoid DopplerBy: Fast DO, Jessica A On: 15-Mar-2014 Intent Fast DO, Jessica A IMMUNIZ ADMNIN, 1 VAC, SNGL/COMBO On: 14-Sep-2013 Intent (84385)By: Fast DO, Jessica A Fast DO, Jessica A FLU VAC, SPLIT, >3 YEARS, INTRAMUSC On: 14-Sep-2013 Intent (21627)By: Fast DO, Jessica A Fast DO, Comments: Lot #:[id number] date:mount given:0.5mlRoute: IMSite given: L dltdVIS and ABN signedGiven by: MYESHA Lozano Jessica A Eprescribed prescriptions ([id number])By: On: 14-Sep-2013 Intent Rosario Dickson JALYN (Ankle Brachial Index) (64654)By: On: 17-Jan-2013 Intent Fast DO, Jessica A Fast DO, Jessica A Cartoid DopplerBy: Fast DO, Jsesica A On: 17-Jan-2013 Intent Fast DO, Jessica A Eprescribed prescriptions ([id number])By: On: 17-Jan-2013 Intent Rosario Dickson DXA, BONE DENSITY, AXIAL SKELETON On: 20-Sep-2012 Intent (72510)By: Fast DO, Jessica A Fast DO, Jessica A Eprescribed prescriptions ([id number])By: On: 20-Sep-2012 Intent Rosario Dickson Six Minute Walk Assessment (74530)By: On: 24-Feb-2012 Intent Mast RN, Ángela Inhaler Demo (34331)By: Fast DO, On: 26-Jan-2012 Intent Jessica A Fast DO, Jessica A Six Minute Walk Assessment (67777)By: On: 26-Jan-2012 Intent Fast DO, Jessica A Fast DO, Jessica A Overnight Pulse OX (41838)By: Hola On: 26-Jan-2012 Intent DO, Jessica A Fast DO, Jessica A Spirometry (47282)By: Yessi On: 26-Jan-2012 Intent Rosario Comments: god effort and curve mod- severe obstruction TDAP VACCINE >7 IM (92878)By: On: 21-Jul-2011 Intent Rosario Dickson Comments: Lot #[id number]-L arm, IMDose prefilledgiven by:Adalgisa KOVACS - OtherBy: Hola GOODSON, Jessica A Fast On: 21-Jul-2011 Intent DO Jessica A Comments: right foot FLU VAC, SPLIT, >3 YEARS, INTRAMUSC On: 21-Jul-2011 Intent (31445)By: Rosario Dickson Comments: pharmacy PNEUM VAC ADLT/IMUMNOSPR, SBC/INTRM On: 28-Jul-2010 Intent (56971)By: Jessica Limon DO A Fast DO, Comments: Lot #[id number]-R armDose0.5mlgiven by:ATA Hernandez IMMUNIZ ADMNIN, 1 VAC, SNGL/COMBO On: 28-Jul-2010 Intent (99970)By: Rudolph Limon DOa A Fast DO, Jessica A Overnight Pulse Ox(05624)By: Amanda RN, On: 22-Jul-2010 Intent Ángela Six Minute Walk Assessment (17321)By: On: 22-Jul-2010 Ángela Ortiz RN Overnight Pulse OX (71947)By: Hola On: 15-Jun-2010 Intent DO Jessica A Fast DO, Jessica A Six Minute Walk Assessment (53542)By: On: 15-Jun-2010 Intent Hola GOODSON, Jessica A Fast DO, Jessica A DXA, BONE DENSITY, AXIAL SKELETON On: 15-Jun-2010 Intent (51656)By: Hola GOODSON Jessica A Fast DO, Jessica A Radiology - Chest- PA and LatBy: Fast On: 15-Jun-2010 Intent DO, Jessica A Fast DO, Jessica A Spirometry (44325)By: Jessica Limon DO On: 15-Jun-2010 Intent A Fast DO, Jessica A Comments: good effort and curve mod obst EKG (15338)By: Hola GOODSON Jessica A Fast On: 15-Jun-2010 [...] [facility] wellness exam : Patient Instructions [facility] Hyperlipidemia : DISCONTINUED - LIPID PANEL (01965) Indication: Hyperlipidemia Elevated hemoglobin A1c : DISCONTINUED - HGB A1C (11888) Indication: Elevated hemoglobin A1c Low back pain [...] medic al issues: he was golfing in [employer] long car ride then low back radiating [...] patient does not have durable power of corporate associate attorney or living will. The patient has noticed [...] disease (607.85) [facility] Payers MedicareUSAA [employer] NEUMANN; a guarantor
--- OUTSIDE RECORDS SUMMARY | 2018-09-24 08:46 | XMS RPT_ITS ---
:1950 Author Organization OHIP Support Name Relationship Address Phone UGO PARKSN Unavailable [address] + [place] [address] R Unavailable Unavailable Unavailable PARKS, MACY Unavailable [address] + [place] [address] R Unavailable Unavailable Unavailable PAKRS, MACY Unavailable [address] + [place] [address] R Unavailable Unavailable Unavailable PARKS, MACY Unavailable [address] + [place] [address] R Unavailable Unavailable Unavailable PARKS, MACY Unavailable [address] + [place] [address] R Unavailable Unavailable Unavailable PRAKS, MACY Unavailable [address] + [place] [address] R Unavailable Unavailable Unavailable PARKS, MACY Unavailable [address] + [place] [address] R Unavailable Unavailable Unavailable PARKS, MACY Unavailable [address] + [place] [address] R Unavailable Unavailable Unavailable PARKS, MACY Unavailable [address] + [place] [address] R Unavailable Unavailable Unavailable PARKS, MACY Unavailable [address] + [place] [address] R Unavailable Unavailable Unavailable PARKS, MACY Unavailable [address] + [place] [address] R Unavailable Unavailable Unavailable PARKS, MACY Unavailable [address] + [place] [address] R Unavailable Unavailable Unavailable PARKS, MACY Unavailable [address] + [place] [address] R Unavailable Unavailable Unavailable PARKS, MACY Unavailable [address] + [place] [address] R Unavailable Unavailable Unavailable Care Team Providers Name Role Phone Fast DO, Jessica A Attending Unavailable Fast DO, Jessica A Referring Unavailable Fast DO, Jessica A Consulting Unavailable Manuel Clinton Attending Unavailable Fast, Jessica Referring Unavailable Fast, Jessica Primary Care Unavailable Fast, Jessica Consulting Unavailable hCuy, Louisa Attending Unavailable Russel, Pravin Attending Unavailable Fast, Jessica Referring Unavailable Moodispaw, Neeraj Attending Unavailable Moodispaw, Neeraj Referring Unavailable Fast, Jessica Primary Care Unavailable Russel, Pravin Attending Unavailable Russel, Pravin Referring Unavailable Fast, Jessica Primary Care Unavailable Kilner, Louisa Attending Unavailable Sibilia, Carlos Attending Unavailable Fast, Jessica Primary Care Unavailable Sibilia, Carlos Attending Unavailable Sibilia, Carlos Referring Unavailable Fast, Jessica Primary Care Unavailable Fast, Jessica Attending Unavailable Fast, Jessica Referring Unavailable Fast, Jessica Primary Care Unavailable Fast, Jessica Attending Unavailable Fast, Jessica Referring Unavailable Fast, Jessica Primary Care Unavailable Fast, Jessica Attending Unavailable Fast, Jessica Referring Unavailable Fast, Jessica Primary Care Unavailable Fast, Jessica Attending Unavailable Fast, Jessica Primary Care Unavailable Jeremiah Banegas Attending Unavailable Wunning, Jeremiah Referring Unavailable Fast, Jessica Primary Care Unavailable Fast, Jessica Referring Unavailable Fast, Jessica Primary Care Unavailable Fast, Jessica Attending Unavailable PROBLEMS PROBLEMS DATE TYPE CONDITION / CODE ATTENDING STATUS SOURCE 09/06/2018 Unknown R93.1 - Abnormal Neeraj Porter Active [place] findings on Community diagnostic imaging [facility] of heart and Repository coronary circulation / R93.1(ICD-10) 09/06/2018 Unknown E78.5 - Russel, Pravin Active [facility] Hyperlipidemia, Community unspecified / Hospital E78.5(ICD-10) Repository 09/06/2018 Unknown F17.200 - Nicotine Russel, Pravin Active [place] dependence, Community unspecified, Hospital uncomplicated / Repository F17.200(ICD-10) 07/17/2018 Unknown M81.0 - Age-related Fast, Jessica Active [facility] osteoporosis Community without current Hospital pathological Repository fracture / M81.0(ICD-10) 05/23/2018 Unknown M54.16 - Fast, Jessica Active [facility] Radiculopathy, Community lumbar region / Hospital M54.16(ICD-10) Repository 02/16/2018 Unknown R91.1 - Solitary Carlos Bowers Active [facility] pulmonary nodule / Community R91.1(ICD-10) Hospital Repository PROCEDURES PROCEDURES No Procedure Records FoundRESULTS RESULTS ACT ACTIVATED CLOTTING Collected: 09/15/2018 Status: F Source: [place] TIME 9:24 AM [facility] REPOSITORY TYPE CODE TESTS RESULT OUT OF RANGE REFERENCE UNITS LAB L9100.0100 74-137 sec High ACTk CLOT 241 TIME Performed By: #### L9100.0100 #### [facility] Laboratory Point of Care [address] [place] [address] CHEST PA AND LATERAL Observed: 09/07/2018 Status: F Source: [place] 10:53 AM [facility] REPOSITORY [facility] Imaging Services [address] [place] [address] Chest PA and Lateral MR#: [id number] Acct: [id number] Name: CHELI NEUMANN Rep #: [id number] : 1950 M 67 From: Phil Can MD PCP: Jessica Limon DO Status: PRE SDC Study: Chest PA and Lateral Date of Exam: 09/07/18 Exam# [id number] Ordering Dr: Pravin Goode MD STUDY: X-RAY CHEST REASON FOR EXAM: Male, 67 years old. Worsening chest pain TECHNIQUE: PA and lateral views of the chest. COMPARISON: 06/16/2010 FINDINGS: There are interstitial fibrotic changes of the lungs. There is no demonstrated pleural abnormality. Normal size heart. Normal mediastinum and ruiz. Normal visualized pulmonary arteries. Normal visualized aortic arch and descending thoracic aorta. Normal visualized thoracic spine. Normal visualized ribs, clavicles, and shoulders. There is no demonstrated abnormality of the visualized soft tissue structures of the upper abdomen. 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 LAB L501.1000 7-18 mg/dL Normal BUN 16 LAB L501.1100 0.70-1.30 mg/dL Normal CREAT,SERUM 0.94 Result Comment: The validity of the calculated GFR AND GFRAA in patients over 70 years has not been determined. Clinical correlation is essential. LAB L501.1110 >60 mL/min Normal EST GFR 85 Result Comment: Non- GFR Calc LAB L501.1115 >60 mL/min Normal EST GFR - AA 103 Result Comment: GFR Calc LAB L501.1300 10-20 RATIO Normal BUN/CRE 17.1 LAB L501.2200 8.5-10.1 mg/dL CA Normal 8.9 LAB L501.5300 136-145 mmol/L NA Normal 139 LAB L501.5600 3.5-5.1 mmol/L K Normal 4.0 LAB L501.5900 98-107 mmol/L CL Normal 104 LAB L501.6100 21.0-32.0 mmol/L Normal CO2 28.0 LAB L501.6200 5-15 Normal GAP 7 Performed By: #### L500.2500 #### [facility] Laboratory [address] [place], [address] CBC W/DIFF, AUTOMATED Collected: 09/06/2018 Status: F Source: [place] 3:41 PM [facility] REPOSITORY TYPE CODE TESTS RESULT OUT OF RANGE REFERENCE UNITS LAB L100.1000 4.4-11.0 K/mm3 Normal WBC 7.4 LAB L100.1200 4.6-6.2 M/mm3 Low RBC 4.24 LAB L100.1300 13.0-16.5 g/dl Normal HGB 13.1 LAB L100.1400 40-54 % Normal HCT 40.7 LAB L100.1500 80-94 fL High MCV 96.0 LAB L100.1600 27.0-32.0 pg Normal MCH 30.9 LAB L100.1700 32-36 g/gl Normal MCHC 32.2 LAB L100.1810 11.6-14.6 % Normal RDW CV 13.0 LAB L100.1820 35.1-43.9 fl High RDW SD 45.2 LAB L100.1900 150-450 K/mm3 Normal PLT 258 LAB L100.2000 6.2-12.0 fl Normal MPV 10.2 LAB L100.2100 47-70 % Normal NEUT% 49.5 LAB L100.2200 19-41 % Normal LY% 37.5 LAB L100.2300 0-10 % Normal MONO% 9.0 LAB L100.2400 0-5 % Normal EO% 3.2 LAB L100.2500 0-1 % Normal BASO% 0.7 LAB L100.2550 0.0-0.9 % Normal IM GRAN % 0.100 Result Comment: IG% - Immature Granulocytes (promyelocytes, myelocytes and metamyelocytes) > 1% indicates that a LEFT SHIFT is Present. LAB L100.2620 2.0-7.7 X10 3/uL Normal Absolute Neut 3.7 LAB L100.2720 0.83-4.51 X10 3/ul Normal Absolute Lymph 2.78 Performed By: #### L100.0100 #### [facility] Laboratory [address] [place], [address] CARDIOLOGY VISIT Observed: 09/06/2018 Status: F Source: [employer] REPORT 3:00 PM [facility] REPOSITORY [facility] [address] [place], [place] [address] OFFICE VISIT Date of Service: 09/06/18 MR#: [id number] Acct: [id number] Name: CHELI NEUMANN Rep #: [id number] : 1950 Provider: Pravin Goode MD Age/Sex: 67/M [place] [facility] [place] Signed [facility] Chief Complaint: Initial visit Details: CHLEI NEUMANN, is a 67 M who presents to the office today for an initial visit. He is a gentleman with a history of previous tobacco abuse hyperlipidemia who as part of his routine physical and underwent a coronary calcification score. He denied any chest pain paroxysmal nocturnal dyspnea or pedal edema. In 2016 he underwent an echocardiogram with demonstrated preserved ejection fraction and also underwent a myocardial perfusion stress test we did not demonstrate any evidence of ischemia at a workload of 7 metabolic equivalents. His coronary calcification score was noted to be 1752. There was significant calcification noted in the right coronary artery in the left anterior descending artery. He has had no dizziness or diaphoresis no near syncope or syncope. He also has mild carotid disease. His physical exam today demonstrates clear lung choudhury regular rate and rhythm normal blood pressure and no pedal edema. Intake Vital Signs09/06/18 Height 6 ft 09/06/18 Weight: 202 lb 09/06/18 Body Mass Index (BMI) 27.3 09/06/18 Blood Pressure 122/60 H H 09/06/18 Respiratory Rate 18 09/06/18 Pulse Rate 64 Intake Visit Reasons: PCP ref'd for abn calcium score Allergies No Known Allergies Allergy (Verified 09/06/18 12:32) Medications Phenytoin Na [Dilantin] 300 mg PO DAILY 07/05/18 [History Confirmed 09/06/18] Simvastatin [Zocor] 10 mg PO QHS 07/05/18 [History Confirmed 09/06/18] Tiotropium Truman [Spiriva] 18 mcg IH DAILY 07/05/18 [History Confirmed 09/06/18] albuterol sulfate HFA 90 mcg/actuation aerosol inhaler 1 puff INHALATION Q6H PRN 08/28/18 [History Confirmed 09/06/18] calcium carb 300 mg-D3 800 unit-mag ox 25 mg-photocopy operator 0.5 mg-sergey-Zn tablet 2 tab PO DAILY 08/28/18 [History Confirmed 09/06/18] denosumab 60 mg/mL subcutaneous syringe 60 mg SC [id number] 08/28/18 [History Confirmed 09/06/18] aspirin 81 mg tablet,delayed release 81 mg PO QDAY #90 tab 09/06/18 [Rx Confirmed 09/06/18] cholecalciferol (vitamin D3) 1,000 unit/drop oral drops unit PO ml 09/06/18 [History Confirmed 09/06/18] clopidogrel 75 mg tablet 75 mg PO DAILY #30 tab 09/06/18 [Rx Confirmed 09/06/18] phenobarbital 16.2 mg tablet 64.8 mg PO DAILY 60 Days #240 tab 09/06/18 [History Confirmed 09/06/18] [facility] Medical History Hyperlipidemia (Chronic) Anemia (Chronic) COPD (chronic obstructive pulmonary disease) (Chronic) Depression (Chronic) Erectile dysfunction (Chronic) Lung nodule (Chronic) Obstructive sleep apnea (Chronic) Osteoporosis (Chronic) PVD (peripheral vascular disease) (Chronic) Seizure disorder (Chronic) Thyroid nodule (Chronic) Nicotine dependence (Inactive) Surgical History History of appendectomy (Resolved) History of tonsillectomy (Resolved) Family History Father Kidney disease Heart disease CHF Sister Diabetes Social History Smoking Status: Former smoker quit date: 03/01/16 pack-years: 45 alcohol intake: current alcohol intake frequency: holidays/special occasions only ROS Const Const: Negative for fatigue, weakness, difficulty sleeping, frequent falls, excessive sweating or headache(s) Eyes Eyes: Negative for loss of peripheral vision, transient loss of vision, blurry vision, tunnel vision or double vision ENT ENT: Positive for dizziness; negative for headache(s), Nosebleed/epistaxis or balance problems Cardio Chest Pain: No Palpitations: No Edema: None Muscle aches with walking: None Resp Respiratory: Positive for SOB with activity; negative for SOB at rest, SOB orthopnea\SOB lying down, paroxysmal nocturnal dyspnea or Cough GI GI: Negative nausea, heartburn, black,tarry stools or vomiting : Negative for hematuria Musc Musc: Negative for balance problems, muscle aches/ myalgia, muscle weakness or joint pain Skin Skin: Negative non-healing lesions, unusual bruising or rash Neuro Neuro: Positive for dizziness and lightheadedness; negative for weakness, frequent falls, headache(s), blurry vision, double vision, orthostatic symptoms, near syncope, syncope or lack of coordination Ge[place] Hematologic/Lymphatic: Negative for easy bruising or easy bleeding Endo Endo: Negative for fatigue, excessive sweating or increased thirst/drinking Psych Psych: Negative for anxiety or depression Allergy Allergy/Immunology: Negative for hives, Negative for rash Cardiology Exam Const Appearance: cooperative, healthy appearing, well developed, well groomed and no acute distress Nutritional Appearance: well nourished and average body habitus Orientation: alert, awake and oriented x3 Head Head: normal to inspection, normocephalic and atraumatic Ears: hearing grossly normal bilaterally and external ears normal Nose: external nose normal, nasal mucous membranes and turbinates normal, nares normal, septum normal, no nasal discharge Face and Sinus: face symmetric Mouth: oral mucosae normal, tongue normal, oropharynx normal and moist mucous membranes Teeth and gingiva: dentition normal Throat: posterior oropharynx normal, tonsils normal and uvula midline Eyes General: appearance normal, both eyes and all related structures Eyelids: eyelids normal Conjunctivae: conjunctivae normal Pupils: PERRL, normal by confrontation and accommodation normal EOM: EOM intact bilaterally Neck Neck: normal visual inspection, trachea midline and no JVD JVD: +5 Carotids: normal carotid upstroke and bounding pulses Chest Chest inspection: normal inspection of the chest, symmetric chest movement and normal respiratory effort Auscultation: Bilateral: Clear to Auscultation Cardio Palpation: normal PMI Rate: regular rate Rhythm: regular rhythm Heart sounds: S1 normal, S2 normal and normal, physiologic split S2; negative rub, gallop or murmur GI GI: normal to inspection, soft, no hepatosplenomegaly and bowel sounds present Neuro General: alert, awake, oriented x3, no focal sensory deficit, gait normal and moves all extremities Skin Skin: no rashes or lesions noted Extremities Pulses: Normal: Right Femoral Pulse, Left Femoral Pulse, Right Dorsalis Pedis Pulse, Left Dorsalis Pedis Pulse, Right Posterior Tibial Pulse, Left Posterior Tibial Pulse, Right Radial Pulse, Left Radial Pulse Lower Extremity Edema: None: Bilateral Musculoskel Musculoskeletal: No joint tenderness Psych Psychological: normal affect Assessment AND Plan 1. Elevated coronary artery calcium score R93.1 Plan He does have a history of an elevated calcium score. I discussed with him about the risk benefits and alternatives including stress testing versus cardiac catheterization. At this time it appears that we are leaning more towards the latter. Depending on the findings further recommendations will be made. He will need to continue with risk factor modification including lipid-lowering as well as tobacco cessation. I will keep you apprised of any further developments. Thank you for allowing me to participate in the care of your patient. Please don't hesitate to call if any issues arise Orders Orders: 2. Hyperlipidemia E78.5 Plan He does have a history of mild hyperlipidemia. Recommendation be to continue the same medications and lipid profile should be obtained through your office. His recent lipid profile demonstrated total cholesterol 146, LDL of 71 and HDL of 85. These levels are acceptable and no other changes will be made. Thank you for allowing me to participate in the care of your patient. Please don't hesitate to call if any issues arise Orders Orders: Plan Detail Other Orders Orders: Other Medications New: Follow Up 6 Months (vice president tax) Coding Level of Care Code Off vis,new,level 4 Diagnoses Elevated coronary artery calcium score R93.1 Hyperlipidemia E78.5 Coding Level of Care Code Off vis,new,level 4 Diagnoses Elevated coronary artery calcium score R93.1 Hyperlipidemia E78.5 Supplemental Info Supplemental Information Diagnostics Coronary Angiography CT 08/11/18 09/06/18 1500 <Electronically signed by Pravin Goode MD> Date Pravin Goode MD Cosigner Signature: Date (if applicable) CC: Jessica Limon DO 12 LEAD EKG PERFORMED Observed: 09/06/2018 Status: F [place] [facility] [place] [facility] REPOSITORY [facility] [address] [place] [address] 12 Lead EKG performed [place] [facility] 09/06/18 1232 MR#: [id number] Acct: [id number] Name: THIENCADE Rep #: [id number] : 1950 67 From: Pravin Goode MD Attending Dr: Pravin Goode MD Status: DEP AMB Ordering Dr: Pravin Goode MD Date: 09/06/18 [place] [facility] Sex: M C Admitted: BMS/12 Lead EKG performed by [facility] ECG Report Interpretation Sinus Bradycardia Low voltage in limb leads. -RSR(V1) -nondiagnostic. ABNORMAL Electronically signed on 09/19/2018 at 13:15 by Pravin Goodewood Software Version [id number] 09/19/18 1319 Date Pravin Goode MD CC: Jessica Limon DO Date Dictated: 09/06/18 1232 Date Transcribed: 09/06/18 123 Catering Truck Driver: CO Signed LIMITED CHEST CT Observed: 08/11/2018 Status: F Source: [employer] W/CCTA 12:45 PM [facility] REPOSITORY [facility] Imaging Services [address] [place] [address] w/CCTA MR#: [id number] Acct: [id number] Name: CHELI NEUMANN Rep #: [id number] : 1950 M 67 From: Charbel Rivera MD PCP: Jessica Limon DO Status: REG CLI Study: Limited Chest CT w/CCTA Date of Exam: 08/11/18 Exam# [id number] Ordering Dr: Jessica Limon DO STUDY: CT CHEST WITHOUT CONTRAST REASON FOR EXAM: Male, 67 years old. Calcium scoring examination. This is an over read examination. RADIATION DOSAGE (If Supplied By Facility): CTDIvol = ( 12.19 ) mGy, DLP = ( 195.04 ) mGycm TECHNIQUE: Transaxial imaging was performed without the administration of intravenous contrast material. Individualized dose optimization techniques were used for this CT. COMPARISON: Comparison is made with prior examination dated February 16, 2018. FINDINGS: Hyperinflation. Minimal increased markings at the lung bases suggestive of scarring. There is no demonstrated pleural abnormality. There are calcifications of the coronary arteries. Minimal degree of pericardial thickening. There are multiple small lymph nodes within the mediastinum, which are normal in size and morphology most compatible with reactive lymph hyperplasia. Normal hilar regions. Normal unenhanced pulmonary arteries. There is atherosclerotic calcification of the aortic arch . There are multi-level degenerative changes of the thoracic spine. Multiple hepatic cysts. CT/Limited Chest CT w/CCTA IMPRESSION: No acute abnormality is seen. Electronically Signed: Charbel Rivera MD at 12:43 EST Tel [phone], Service support , CC: Jessica Limon DO Catering Truck Driver: Signed LOWER EXT/NO JT/W/O Observed: 08/08/2018 Status: F Source: [employer] 9:42 AM [facility] REPOSITORY [facility] Imaging Services [address] [place] [address] Lower Ext/No Jt/w/o MR#: [id number] Acct: [id number] Name: CHELI NEUMANN Rep #: [id number] : 1950 67 From: Demarco Ellsworth MD PCP: Jessica Limon DO Status: REG CLI Study: Lower Ext/No Jt/w/o Date of Exam: 08/08/18 Exam# [id number] Ordering Dr: Jeremiah Banegas DPSaul STUDY: MRI RIGHT MIDFOOT REASON FOR EXAM: Painful soft tissue mass, no specific injury. TECHNIQUE: Standardized fat and water weighted pulse sequences were obtained in all 3 orthogonal planes. COMPARISON: MRI images 12/24/2011. FINDINGS: Normal talonavicular articulation. Normal calcaneocuboid articulation. Normal navicular-cuneiform articulations. Normal intercuneiform articulations. Normal first tarsometatarsal articulation. Normal Lisfranc ligament. Normal second and third tarsometatarsal articulations. Normal cuboid fourth and cuboid fifth tarsometatarsal articulation. Normal first through fifth metatarsi. Normal tibialis anterior tendon. Normal extensor hallucis longus tendon. Normal extensor digitorum longus tendons. Normal peroneus longus tendon and distal insertion. Normal peroneus brevis tendon and distal insertion. Normal intrinsic muscles of the mid and forefoot region. Normal extensor digitorum brevis muscle. 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 [address] [place] [address] Fax REHABILITATION SERVICES DISCHARGE SUMMARY MR#: [id number] Acct: [id number] Name: CHELI NEUMANN Rep #: [id number] : 1950 67 From: Rose Colunga PT, Cert. T Referring DrArias: Jessica Limon DO Status: REG RCR Insurance: MEDICARE PART A B COMMERCIAL OTHER HP - PT D/C Summary It has been my pleasure to treat CHELI NEUMANN under orders from Jessica Limon DO, for the diagnosis of LBP WITH RADICULOPATHY for a total of 16 visit(s). Discharge Date: 05/23/18 Please see the following information for a summary of their discharge status. - Subjective Subjective: PATIENT REPORTS HE HAS BEEN ABLE TO RESUME NORMAL ACTIVITY AT THIS POINT BUT HE AVOIDS LIFTING THAT PUTS HIM IN A BAD POSITION. ABLE TO GOLF WITHOUT PAIN. DOING HEP BUT HASN'T GONE TO [facility] BUT PLANS TO WHEN GOLFING SEASON IS OVER. PATIENT STATES HE DOESN'T THINK HE HAS TAKEN ANY ADVIL FOR ABOUT A MONTH. DRIVING TO [employer]. FOR GOLF OUTING FOR A WEEK 36 HOLES A DAY May. - Pain LEFT LOW BACK Pain Intensity (Out of 10): 0 - Overall Improvement % Improvement: 95 - Objective Objective/Function: ALL GOALS MET. UPON EXAM TODAY, PATIENT HAS FAIR POSTURE AND REQUIRES LESS CUEING FOR PROPER POSTURE CONTROL. HE HAS DECREASED LUMBAR EXTENSION ROM AND THIS LIMITS HIS POSTURE CORRECTION TO SOME DEGREE. HE DEMONSTRATES INDEP GAIT AND TRANSFERS WITH NO GROSS DEVIATIONS NOTED. Motor deficit: MARY LE'S 5/5 WITH MMT'ING BUT POSTERIOR HIP WEAKNESS DEMO'D WITH DIFFICULTY TRANSFERING SIT TO STAND AND REVERSE WITHOUT LERCHING FORWARD IN TRUNK. Lumbar mvmt loss: flex - NIL. ext - BANDAR. R SG - MOD. L SG - MOD. PATIENT DID NOT HAVE C/O PAIN WITH LUMBAR ROM TESTING TODAY. Core strength: FAIR. PATIENT COMMUNICATED A GOOD UNDERSTANDING OF [...] please feel free to call me at [phone]. Thank you for the referral of this patient. Sincerely, Rose Colunga <Electronically signed by Rose Colunga PT, Cert. MDT> 05/23/18 1303 CC: Jessica Limon DO ANDREA Signed RE-EVALUATION - PT (1) Observed: 04/18/2018 Status: F Source: [employer] 2:36 PM [facility] REPOSITORY [facility] Physical Therapy [facility] [address] [place] [address]. [address] [place], [place] [address] Fax REEVALUATION / MEDICARE RECERTIFICATION PHYSICAL THERAPY MR#: [id number] Acct: [id number] Name: CHELI NEUMANN Rep #: [id number] : 1950 67 From: Rose Colunga PT, Cert. MDT Referring DrArias: Jessica Limon DO Status: REG RCR Insurance: MEDICARE PART A B COMMERCIAL OTHER Jessica Limon DO, It has been my pleasure to treat CHELI NEUMANN over the last 10 visits for LBP WITH RADICULOPATHY. Please see the progress note below for an update on the physical therapy plan of care! Subjective: PATIENT REPORTS WALKING IS GOING BETTER - I DON'T HAVE THE TIGHNESS WHEN I WALK. I DON'T HAVE THE PAIN GETTING IN AND OUT OF BED. PATIENT REPORTS HE NOTICES THE PAIN WHEN HE STANDS ON ONE LEG AND TRIES TO PUSH SOMETHING WITH THE OTHER LEG. LIFTED SOMETHING WEIGHING ABOUT 50 TO 60 LBS YESTERDAY AND IT INCREASED HIS PAIN. THE INCREASED PAIN IS IMPROVING [...] REPORTS HE IS A MEMBER AT THE [employer]. STILL FEELING A LITTLE BIT OF TIGHTNESS ON LEFT LOW BACK WITH WALKING. Objective/Function: PATIENT IS IMPROVING WITH INCREASED PAINFREE LUMBAR ROM, IMPROVED FUNCTION AND PROGRESSION TOWARD INDEP EX PROGRAM. Sitting/Standing Posture: POOR - PATIENT STILL REQUIRES CUEING FOR CORRECTION. Lordosis: REDUCED. Lateral shift: NO. Relevant shift: N/A. Other Observations: INDEP GAIT INTO PT WITH MILD INCREASED TRUNK FLEXION, NO AD'S AND FAIR CADANCE. NO LONGER LIMPING ON LLE AND INCREASED MARY STRIDE LENGTH. INDEP TRANSFERS. Motor deficit: [...] INCREASED LEFT BACK PAIN WITH FLEXION AND RIGHT SG TESTING. Core strength: POOR. PATIENT COMMUNICATED A GOOD UNDERSTANDING OF ALL INSTRUCTIONS AFTER GIVEN. Plan Plan: PATIENT IS APPROPRIATE FOR CONTINUED PT DECREASING TO 2 TIMES A WEEK HE BEGINS INDEP EX WITH MEMBERSHIP AT FACILITY OF HIS CHOICE WITH THE FOLLOWING POC: US NEEDED. DLS THER EX PROGRESSION. MARY LE ROM, STRETCHING AND STRENGTHEING. FURTHER INSTRUCTION IN PROPER POSTURE CONTROL AND BODY MECHANICS NEEDED. PATIENT IS AGREEABLE TO THIS POC. Goals Goal 1:: DECREASE C/O L LB AND LE SX'S. Goal Time Frame: 4-6 Weeks Goal Progress: Progressing Goal 2:: IMPROVE WALKING, LIFTING, SOCIAL LIFE, TRAVEL, HOMEMAKING AND RECREATIONAL (ESPECIALLY GOLF) FUNCTION Goal Time Frame: 4-6 Weeks Goal Progress: Progressing Goal 3:: INSTRUCT IN PROPHYLAXIS Goal Time Frame: 4-6 Weeks Goal Progress: Progressing Anticipated Interventions Patient/Client Instruction: Educate patient on: Condition, Plan of Care, Risk Factors, Benefits of Fitness Program For the Purpose of:: To improve self management Therapeutic Exercise to Include: Strength training, Body mechanics, Postural training, Flexibilty training, In an aquatic setting, Dynamic Lumbar Stabilization For the Purpose of:: To decrease pain, To increase ROM, To improve muscle performance and motor function, To increase tolerance to activity/condition/position, To improve ability of physical actions for home/community/work/leisure, To improve gait and locomotor functions Manual Therapy Techniques to Include: Soft tissue mobilization For the Purpose of:: To decrease pain, To improve nutrient delivery to tissue Cryotherapy (ice pack, ice massage): Yes Thermo therapy (hot pack): Yes Ultrasound (thermal/non thermal): Yes For the Purpose of:: To decrease pain, To decrease swelling/inflammation, To increase ROM Please do not hesitate to contact me at [phone] by phone or if you have questions or concerns regarding this new plan of care! Sincerely, Rose Colunga <Electronically signed by Rose Colunga PT, Cert. MDT> 04/18/18 5556 CC: Jessica Limon DO ANDREA Signed For Medicare only, by signing this I certify the plan of care. Physicians Signature Date INITAL EVALUATION (1) Observed: 03/28/2018 Status: F Source: [facility] - PT 2:11 PM [facility] REPOSITORY [facility] Physical Therapy [facility] [address] [place] [address] Fax REHABILITATION SERVICES INITIAL EVALUATION MR#: [id number] Acct: [id number] Name: CHELI NEUMANN Rep #: [id number] : 1950 67 From: Rose Colunga PT, Cert. MDT Referring Dr.: Jessica Limon DO Status: REG RCR Insurance: MEDICARE PART A B COMMERCIAL OTHER Patient's Visit Information CHELI NEUMANN is a 67 year old M referred to Physical Therapy by Jessica Limon DO with a diagnosis of LBP WITH RADICULOPATHY. Date of Evaluation: 03/28/18 Physical Therapist: Rose Colunga - Visit [...] TIGHT AT TIMES. NO NUMBNESS OR TINGLING. Present since: MARCH 07 2018 WAS WHEN HE FIRST NOTICED IT. Pain Scale: WORST: 7/10, LEAST 1/10. Currently: 10/08. 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 THE WEEK BEFORE ATTEMPED TO PUSH A GARAGE DOOR UP BECAUSE A SPRING BROKE. Symptoms at onset: LEFT HIP. Worse: WALKING, GETTING IN AND OUT OF BED, GETTING IN AND OUT OF 'S CAR, MOWING, STEPS, LIFTING - PICKING UP DOG. Better: IBUPROFEN, SITTING. Disturbed sleep: YES. Previous history/Previous treatment: HISTORY OF RIGHT LOW BACK PAIN MAY 2017 - TREATED WITH 3 CHIRO VISIT - 100% RECOVERED. 10 YEARS AGO BACK EPISODE - SELF LIMITING. ONE CHIRO VISIT THIS EPISODE WHICH MIGHT HAVE HELPED A LITTLE BIT. NO PRIOR BACK PT. Coughing/sneezing/straining: NEGATIVE. Gait: IT FEELS LIKE LEFT HIP TIGHTENS UP WHEN STEPPING WITH LEFT LEG AND LEFT [...] deformity of the T8 vertebra, unchanged from 2017. Fracture deformities of the T5 and T7 vertebra are also evident on. CT at that time. PMH: SEIZURE DISORDER. OSTEOPOROSIS. COPD. OTHER: PATIENT REPORTS DR. LIMON TOLD HIM NOT TO GOLF. HE REPORTS HE HAS NOT BEEN DRIVING BUT HE HAS BEEN CHIPPING AND PUTTING. - Objective Sitting/Standing Posture: POOR. Lordosis: REDUCED. Lateral shift: NO. Relevant shift: N/A. Other Observations: INDEP GAIT INTO PT WITH INCREASED TRUNK FLEXION, [...] MARY LE'S. Lumbar mvmt loss: flex - MIN + LEFT LB/HIP. ext - BANDAR. R SG - BANDAR + LEFT LB/HIP. L SG - MOD. Core strength: POOR - Goals Goal 1:: DECREASE C/O L LB AND LE SX'S. Goal Time Frame: 4-6 Weeks Goal 2:: IMPROVE WALKING, LIFTING, SOCIAL LIFE, TRAVEL, HOMEMAKING AND RECREATIONAL (ESPECIALLY GOLF) FUNCTION Goal Time Frame: 4-6 Weeks Goal 3:: INSTRUCT IN PROPHYLAXIS Goal Time Frame: 4-6 Weeks - Rehabilitation Potential Rehabilitation Potential: Fair - Anticipated Interventions Patient/Client Instruction: Educate patient on: Condition, Plan of Care, Risk Factors, Benefits of Fitness Program For the Purpose of:: To improve self management Therapeutic Exercise to Include: Strength training, Body mechanics, Postural training, Flexibilty training, In an aquatic setting, Dynamic Lumbar Stabilization For the Purpose of:: To decrease pain, To increase ROM, To improve muscle performance and motor function, To increase tolerance to activity/condition/position, To improve ability of physical actions for home/community/work/leisure, To improve gait and locomotor functions Manual Therapy Techniques to Include: Soft tissue mobilization For the Purpose of:: To decrease pain, To improve nutrient delivery to tissue Cryotherapy (ice pack, ice massage): Yes Thermo therapy (hot pack): Yes Ultrasound (thermal/non thermal): Yes For the Purpose of:: To decrease pain, To decrease swelling/inflammation, To increase ROM Thank you for the opportunity to evaluate your patient. For Medicare and Medicare HMO plans, please review the plan of care and approve it. It will need to be FAXED BACK to us at [phone] for Medicare purposes. Please let me know if there are questions or concerns regarding this plan of care. Physician Signature: Date: <Electronically signed by Rose Colunga PT, Cert. MDT> 03/28/18 1411 CC: Jessica Limon DO ANDREA Signed For Medicare only, by signing this I certify the plan of care. Physicians Signature Date CAROTID DUPLEX Observed: 03/24/2018 Status: F Source: [facility] ULTRASOUND 7:29 AM [facility] REPOSITORY [facility] Cardiovascular Services [address] [place] [address] Carotid Duplex Ultrasound 03/20/18 0956 MR#: [id number] Acct: [id number] Name: CHELI NEUMANN Rep #: [id number] : 1950 67 From: David Mo MD Attending Dr: Jessica Limon DO Status: REG CLI Ordering Dr: Jessica Limon DO Date: 03/20/18 Location: [facility] Sex: M C Admitted: Reason For Study: [...] Dist ICA 92.2/34.1 cm/sec. Rt. ICA/CCA = .82. Lt. ICA/CCA = 1.0. Prox ECA 83.3/17.0 cm/sec. Prox ECA 108.0/26.7 cm/sec. Rt. Vert. 55.7/11.7 cm/sec. Lt. Vert. 62.1/18.1 cm/sec. Right Extracranial There is intimal thickening but no significant atherosclerotic plaque noted in the right common carotid artery. There is intimal thickening but no significant atherosclerotic plaque noted in the right internal carotid artery. There is intimal thickening but no significant atherosclerotic plaque noted in the right external carotid artery. Antegrade flow is noted in the right vertebral artery. Left Extracranial There is intimal thickening but no significant atherosclerotic plaque noted in the left common carotid artery. There is homogeneous, smooth atherosclerotic plaque noted in the left internal carotid artery. There is heterogeneous, irregular atherosclerotic plaque noted in the left external carotid artery. Antegrade flow is noted in the left vertebral artery. Procedure Carotid Duplex 91000. Exam performed in department. Interpretation Summary No significant atherosclerotic plaque or stenosis noted in the right internal carotid artery. Mild (<50%) stenosis left extracranial internal carotid. Flow within the vertebral arteries is antegrade bilaterally. 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 Low back pain. TECHNIQUE: 5 view(s) of the lumbar spine were obtained. COMPARISON: Low-dose screening CT chest/thorax November 16, 2017. FINDINGS: Normal lumbar lordosis. There is no substantial scoliosis. There is a normal alignment of the vertebrae. There is mild multilevel endplate spondylosis of the lumbar vertebrae. There is multi-level mild degenerative disc disease with multi- level disc space narrowing. There is no demonstrated [...] also evident on CT at that time. 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 Follow-up nodule. COPD. RADIATION DOSAGE (If Supplied By Facility): CTDIvol = ( 10.71 ) mGy, DLP = ( 404.98 ) mGycm TECHNIQUE: Transaxial imaging was performed without the administration of intravenous contrast material. Individualized dose optimization techniques were used for this CT. COMPARISON: None. FINDINGS: There is hyperinflation of the lungs consistent with chronic obstructive lung disease (COPD). There is a stable 7.5 mm nodule in the medial posterior aspect of the right upper lobe, currently best seen on axial image 76. Continued follow-up is recommended. No other nodules are seen. Stable vertical linear scarring across the medial posterior left lower lobe. No infiltrates. No effusions. There is no demonstrated pleural abnormality. Normal heart and pericardium. There are calcifications of the coronary arteries. Normal mediastinum. Normal hilar regions. Normal unenhanced pulmonary arteries. Normal aorta arch and descending thoracic aorta. There are multi-level degenerative changes of the thoracic spine. There is diffuse demineralization. There are very numerous partial compression fractures that are stable. No definite acute abnormality in the upper abdomen. Stable appearance of liver and renal cysts and nonobstructing right renal stone. CT/Chest without Contrast IMPRESSION: Stable COPD and stable 7.5 mm right upper lobe nodule. Recommend repeat follow-up in 6 months. Electronically Signed: Kali Diaz MD at 17:29 EDT , Service support , CC: Jessica Limon DO; Carlos Bowers MD Catering Truck Driver: Signed LOW DOSE CT LUNG Observed: 11/16/2017 Status: F Source: [employer] SCREENING 6:56 PM [facility] REPOSITORY [facility] Imaging Services [address] [place] [address] Lung Screening MR#: [id number] Acct: [id number] Name: HCELI NEUMANN Rep #: [id number] : 1950 M 66 From: Charbel Rivera MD PCP: Jessica Limon DO Status: REG CLI Study: Low Dose CT Lung Screening Date of Exam: 11/16/17 Exam# [id number] Ordering Dr: Carlos Bowers MD STUDY: LOW DOSE CT LUNG CANCER SCREENING REASON FOR EXAM: Male, 66 years old. 30 pack-year smoker. RADIATION DOSAGE (If Supplied By Facility): CTDIvol = ( 4.02 ) mGy, DLP = ( 148.48 ) mGycm TECHNIQUE: No contrast was administered. Low dose technique was utilized (average mAS-38 and kVp 120). 1.25 mm axial source images with a slice interval of 1.25- mm were reconstructed in lung windows. 2.5 mm axial source images with a slice interval of 2.5-mm were reconstructed in lung windows. 5.0 mm axial source images with a slice interval of 5.0-mm were reconstructed in soft tissue windows. Nodule measured using lung windows on PACS and/or independent workstation with automated measurement of minimum and maximum diameter. Nodule measurement reported as average diameter rounded to the nearest whole number. Growth is defined as an increase ins size of greater than 1.5 mm. COMPARISON: Comparison is made with prior examination dated September 04, 2010. NODULES: There is a new 7.6 mm x 5.1 mm well-defined noncalcified nodule in the superior medial aspect of the right upper lobe as seen on axial image #77. Total lung nodules (excluding granulomas): 1 Emphysema: Diffuse emphysematous changes. Mild increased markings at the lung bases suggestive of linear scarring. Endobronchial lesion: None Aorta: Atherosclerotic calcification. Coronary arteries: Coronary artery calcification. CT/Low Dose CT Lung Screening IMPRESSION: Lung-RADS category 3 - Continue screening with LDCT in 6 months. IMPORTANT NOTES FOR USE: ACR Lung-RADS Version 1.0 Assessment Categories Release Date: December 24, 2013 Category: Coded 0-4 bases on nodule(s) with highest degree of suspicion. Negative screen is defined as categories 1 and 2; a positive screen is defined as categories 3 and 4. Category 3 and 4A [...] notes, etc. Category Modifiers: S (significant finding unrelated to lung cancer) and C (prior history of treated lung cancer) may be added to the 0-4 Lung-RADS Electronically Signed: Charbel Rivera MD at 10:24 EDT Tel [phone], Service support , CC: Jessica Limon DO; Carlos Bowers MD Catering Truck Driver: Signed ALLERGIES ALLERGIES DATE TYPE / CODE NAME / CODE REACTION SEVERITY SOURCE 09/06/2018 Drug No Known Unknown [place] [facility] Allergy/4160 Allergies/F00 Hospital 12521(SNOMED 3269051(RXNOR Repository CT) M) ENCOUNTERS ENCOUNTERS ADMIT/DISCHARGE ACCOUNT ADMITTING ENCOUNTER LOCATION SOURCE NUMBER CLASS 09/15/2018 [id number] Ambulatory BMSBuilding:B [place] 8 [place] Repository 09/15/2018/ [id number] Ambulatory [place] 9 9 [facility] ing:CLSP Repository 09/06/2018 [id number] Ambulatory [place] 4 [facility] ing:LAB Repository 09/06/2018/ [id number] Ambulatory BMSBuilding:B [place] [facility] 4 [place] Repository 08/28/2018 [id number] Ambulatory BMSBuilding:B [place] 8 [place] Repository 08/14/2018 [id number] Ambulatory OHIP Practices Repository 08/11/2018 [id number] Ambulatory BMSBuilding:B [place] 8 [place].[facility] Repository 08/11/2018 [id number] [place]ulatory [place] [facility] Hospital ing:CT Repository 08/08/2018 [id number] Amb[place] 7 [facility] Hospital ing:MRI Repository 07/05/2018 [id number] Ambulatory [place] 3 [facility] Hospital ing:MEDOUTP Repository 05/23/2018/ [id number] Ambulatory [place] 8 2 [facility] Repository 03/21/2018 [id number] Ambulatory [place] 1 [facility] Hospital ing:HPRAD Repository 03/20/2018 [id number] [facility] [place] [facility] ing:[facility]S Repository 02/16/2018 [id number] Ambulatory [place] 6 [facility] Hospital ing:CT Repository 11/16/2017 [id number] Ambulatory [place] 7 [facility] Hospital ing:CT Repository PAYERS PAYERS ENCOUNTER GUARANTOR PAYER SUBSCRIBER SOURCE 09/15/2018 CHELI Hernandez Primary CHELI Hernandez [place] [id number] Insurance:MEDICARE BECKETTDOB: Community MEADOW PART A [facility] [id number] Number: Repository [address]Qjl: 330 [id number] [phone] () Date:2018-09-15 09/15/2018 Secondary CADE [place] Insurance: LIFE BECKETTDOB: [facility] [place]. [place].Policy [id number] Hospital Number: Repository [id number] Date:0530-41-24LE [address] [place] [address]YY: 09/15/2018 Tertiary NOT GIVENUNK [place] Insurance:SELF PAY [facility] Number: Effective Repository Date:2018-09-15 09/15/2018 CADE Primary CADE [place] [id number] Insurance:MEDICARE BECKETTDOB: Community [place]OW PART A [id number] [place] Number: Repository [id number]: 330 [id number] [phone] () Date:2018-09-06 09/15/2018 Secondary CADE [place] Insurance: LIFE BECKETTDOB: [facility] [place]Policy [id number] Hospital Number: Repository [id number] Date:9202-38-61RA [address] [address], [place] [address]OP: 09/15/2018 Tertiary NOT GIVENUNK [place] Insurance:SELF PAY [facility] Hospital Number: Effective Repository Date:2018-09-06 09/06/2018 CADE Primary CADE [place] [id number] Insurance:MEDICARE BECKETTDOB: Community [place]OW PART A [facility] [id number], [place] Number: Repository [address]Xbm: 330 [id number] [phone] () Date:2018-09-06 09/06/2018 Secondary CADE [place] Insurance: LIFE BECKETTDOB: [facility] [place]Policy [id number] Hospital Number: Repository [id number] Date:9203-30-69EE [address] [address]QFAEXLHYI, [place] [address]UO: 09/06/2018 Tertiary NOT GIVENUNK [place] Insurance:SELF PAY [facility] Number: Effective Repository Date:2018-09-06 09/06/2018 CADE Primary CADE [place] [id number] Insurance:MEDICARE BECKETTDOB: Community ME[place]OW PART A [id number] [place] Number: Repository [id number]: 330 [id number] [phone] () Date:2018-08-16 09/06/2018 Secondary CADE [place] Insurance: LIFE BECKETTDOB: Community [place]Policy [id number] Hospital Number: Repository [id number] Date:7532-46-20QO [address] [address]OWZYXBXSX, [place] [address]EC: 09/06/2018 Tertiary NOT GIVENUNK [place] Insurance:SELF PAY [facility] Number: Effective Repository Date:2018-08-23 08/28/2018 CADE Primary CADE [place] [id number] Insurance:MEDICARE BECKETTDOB: Community ME[place]OW PART A [facility] [id number] Memorial Hospital [place] Number: Repository [address]Djk: 330 [id number] [phone] () Date:2018-08-28 08/28/2018 Secondary CADE [place] Insurance: LIFE BECKETTDOB: Community [place] [id number] Hospital Number: Repository [id number] Date:4117-76-83LQ [address] [address]TBGSKYQAM, [place] [address]NB: 08/28/2018 Tertiary NOT GIVENUNK [place] Insurance:SELF PAY [facility] Number: Effective Repository Date:2018-08-28 08/14/2018 CADE Primary CHELI Hernandez [place] Practices BECKETTDOB: Insurance:MedicarePol BECKETTDOB: Repository icy Number: [id number] [place] [id number] [place], [place] Date:3129-73-40Eqch [place], [place] [address]Cqh: 330) Name:BARREL WASHER MACHINEAna Allen [address]Tdl: 046757YdxssxrnBRUINGTON, [place] [address] (HP) (HP)Tel: [phone]: ([phone] 08/14/2018 Secondary CHELI Hernandez OHIP Practices Insurance: Beth BECKETTDOB: Repository Insurance [id number] [facility]: Martina [id number] [facility], [place] Date:2200-25-28Dfvr [address]Deo: Name:Dariel, ~(3 [place] [id number]: [phone] ([phone] 08/14/2018 Tertiary CHELI Hernandez OHIP Practices Insurance:Tiona MORIAHSHYANNDOB: Repository [facility] [id number] Number: Martina [id number] [facility], [place] Date:2009-08-29 [address]Jpo: 2058-54-75Adfw ~(3 Name:[facility] [address] () [address]11[address], [place] [address]IZ: 08/11/2018 CHELI Hernandez Primary Insurance:[facility] CHELI Hernandez Crow [id number] PACKAGE PLANPolicy BECKETTDOB: [facility] Number: [id number], [place] [id number] Repository [address]Inh: (330) Date:2018-08-01-9585 (HP) 08/11/2018 Secondary NOT GIVENUNK [place] Insurance:SELF PAY [facility] Number: Effective Repository Date:2018-08-11 08/11/2018 CHELI Hernandez Primary Insurance:[facility] CHELI Hernandez Crow [id number] PACKAGE PLANPolicy BECKETTDOB: [facility] MEADOW Number: [id number], [place] [id number] Repository [address]Nnj: (330) Date:2018-08-0193 () 08/11/2018 Secondary NOT GIVENUNK [place] Insurance:SELF PAY [facility] Number: Effective Repository Date:2018-08-01 08/08/2018 CADE Primary CHELI Hernandez Crow [id number] Insurance:MEDICARE BECKETTDOB: Community MEADOW PART A [facility] [id number] Medical [facility] Number: Repository [address]Xvc: [phone] [id number] () Date:2018-07-28 08/08/2018 Secondary CAED [place] Insurance: LIFE BECKETTDOB: Community [place]Policy [id number] Hospital Number: Repository [id number] Date:7776-66-39DM [address] [address]VAGWMOBGC, [place] [address]YK: 08/08/2018 Tertiary NOT GIVENUNK [place] Insurance:SELF PAY [facility] Number: Effective Repository Date:2018-07-28 07/05/2018 CADE Primary CADE [place] [id number] Insurance:MEDICARE BECKETTDOB: Community MEADOW PART A [facility] [id number] Memorial Hospital [place] Number: Repository [id number]: 330 [id number] () Date:2018-07-03 07/05/2018 Secondary CADE [place] Insurance: LIFE BECKETTDOB: Community [place]Policy [id number] Hospital Number: Repository [id number] Date:0472-50-45IT [address] [address]ZZXHLPXZQ, [place] [address]LN: 07/05/2018 Tertiary NOT GIVENUNK [place] Insurance:SELF PAY [facility] Number: Effective Repository Date:2018-07-03 05/23/2018 CADE Primary CADE [place] [id number] Insurance:MEDICARE BECKETTDOB: Community MEADOW PART A [facility] [id number] Memorial Hospital [place] Number: Repository [id number]: 330 [id number] [phone] () Date:2014-10-27 05/23/2018 Secondary CADE [place] Insurance: LIFE BECKETTDOB: Community [place]Policy [id number] Hospital Number: Repository [id number] Date:2188-38-02HS [address] [address]VRXPOFBIU, [place] [address]RY: 05/23/2018 Tertiary NOT GIVENUNK [place] Insurance:SELF PAY [facility] Number: Effective Repository Date:2018-03-21 03/21/2018 CADE Primary CHELI Hernandez Crow [id number] Insurance:MEDICARE BECKETTDOB: Community MEADOW PART A [facility] [id number] Number: Repository [id number]: [phone] [id number] [phone] () Date:2018-03-21 03/21/2018 Secondary CHELI Hernandez [place] Insurance: LIFE BECKETTDOB: [place] [id number] Hospital Number: Repository [id number] Date:[id number] [address]OV[place], [place] [address]BU: 03/21/2018 Tertiary NOT GIVENUNK [place] Insurance:SELF PAY [facility] Number: Effective Repository Date:2018-03-21 03/20/2018 CADE Primary CHELI Hernandez [place] [id number] Insurance:MEDICARE BECKETTDOB: Community [place]OW PART A [facility] [id number] Number: Repository [id number]: [phone] [id number] [phone] () Date:2018-03-13 03/20/2018 Secondary CHELI Hernandez [place] Insurance: LIFE BECKETTDOB: [place] [id number] Hospital Number: Repository [id number] Date:[id number] [address] [address] [address]MN: 03/20/2018 Tertiary NOT GIVENUNK [place] Insurance:SELF PAY [facility] Number: Effective Repository Date:2018-03-13 02/16/2018 CADE Primary CHELI Hernandez [place] [id number] Insurance:MEDICARE BECKETTDOB: Community MEADOW PART A [facility] [id number][place] Number: Repository [id number]: [phone] [id number] [phone] () Date:2018-01-09 02/16/2018 Secondary CADE [place] Insurance: LIFE BECKETTDOB: [place] [id number] Hospital Number: Repository [id number] Date:[id number] [address]JQLQRNV[place], [place] [address]EZ: 02/16/2018 Tertiary NOT GIVENUNK [place] Insurance:SELF PAY [facility]: Effective Repository Date:2018-01-09 11/16/2017 CADE Primary CADE Crow [id number] Insurance:MEDICARE BECKETTDOB: [facility] [place]ADOW PART A [facility] [id number] Number: Repository [id number]: [phone] [id number] [phone] () Date:2017-11-14 11/16/2017 Secondary CADE [place] Insurance: LIFE BECKETTDOB: [place] [id number] Hospital Number: Repository [id number] Date:[id number] [address] [address] [address]PO: 11/16/2017 Tertiary NOT GIVENUNK [place] Insurance:SELF PAY [facility] Number: Effective Repository Date:2017-11-14
--- OUTSIDE RECORDS SUMMARY | 2018-09-24 08:46 | XMS RPT_ITS | Continuity of Care Document ---
:1950 Author Organization [facility] Address [address] [facility] [address] [place] [address] Phone Care Team Providers Name Role Phone Jessica Limon DO Unavailable Dr. Landon Werner Unavailable [facility], [facility] Unavailable Anneliese Stover Unavailable Unavailable Rosario Dickson [...] present regimen Status: Active hypoxia Status: Active Low back pain potentially associated with radiculopathy (M54.5, 724.2) Status: Active Lung nodule (R91.1, 793.11) Comments: robinson is following pet scan neg Status: Active [facility] WELLNESS EXAM Status: Active [facility] Wellness Physical Status: Active [...] apnea, adult (G47.33, 327.23) Comments: following with robinson Status: Active Osteoporosis (M81.0, 733.00) Comments: he [...] 268.9) Status: Active Medications Name Dates Details Breo Ellipta 100-25 MCG/INH Inhalation Aerosol Powder Breath Activated 1 (one) Puff 1 PUFF A DAY for 0 days Quantity: 30 {Inhalation} Refills: 6 Ordered:04-Apr-2018 DORudolpha AFast DO, Jessica A Start : 04-Apr-2018 Active CALTRATE 600+D PLUS, 150-248PB-HZRR (Oral Tablet) 1 tab bid (600-400 MG-UNIT) Active Cialis 5 MG Oral Tablet 1 (one) Tablet Tablet qd prn for 0 days Quantity: 30 {Tablet} Refills: 0 Ordered:21-Sep-2017 Marcelle Bar Start : 20-Jun-2017 Active Dilantin 100 MG Oral Capsule 3pills Capsule qd for 90 days Quantity: 270 {QS} Refills: 3 Ordered:06-Aug-2016 Rudolph GOODSONa AFshauna DO, Jessica A Start : 06-Aug-2016 Active Dispense as Written Comments:VANESSA Hydrocortisone Valerate 0.2 % External Cream 1 (one) Application Application apply creme qd for 0 days Quantity: 30 {Gram} Refills: 3 Ordered:16-Nov-2017 Anneliese Stover Start : 16-Nov-2017 Active Prolia 60 MG/ML Subcutaneous Solution 1 (one) Milliliter Milliliter once every 6 months for 0 days Quantity: 1 {Milliliter} Refills: 1 Ordered:22-Jun-2017 Rudolph Limon DOa AFast DO, Jessica A Start : 22-Jun-2017 Active Comments:This was approved by his insurance Simvastatin 10 MG Oral Tablet 1 (one) Tablet Tablet qd for 0 days Quantity: 90 {Tablet} Refills: 0 Ordered:20-Jun-2017 Marcelle Bar Start : 20-Jun-2017 Active Simvastatin 10 MG Oral Tablet 1 (one) Tablet Tablet qd for 0 days Quantity: 90 {Tablet} Refills: 3 Ordered:20-Jun-2017 Marcelle Bar Start : 20-Jun-2017 Active Anoro Ellipta 62.5-25 MCG/INH Inhalation Aerosol [...] Start : 08-Oct-2013 End : 18-Oct-2013 Inactive CEFADROXIL, 500MG (Oral Capsule) 1 (one) Capsule bid for 7 days Quantity: 14 {Capsule} Refills: 0 Ordered:30-May-2014 Lester Guerrier CNP Start : 30-May-2014 End : 06-Jun-2014 Inactive Clarithromycin 500 MG Oral Tablet 1 (one) Tablet bid for 0 days Quantity: 20 {Tablet} Refills: 0 Ordered:20-Jun-2017 Jessica Limon DO, DO, Debra A Start : 15-Jun-2017 End : 20-Jun-2017 Inactive FAMCICLOVIR, 500MG (Oral Tablet) 2 (two) Tablet bid for 1 days Quantity: 4 {QS} Refills: 0 Ordered:11-Apr-2015 Lester Guerrier CNP Start : 11-Apr-2015 End : 12-Apr-2015 Inactive PHENobarbital 16.2 MG Oral Tablet 1 (one) Tablet qid for 60 days Quantity: 240 {Tablet} Refills: 0 Ordered:10-Oct-2017 Jessica Limon DO, DO, Debra A Start : 10-Oct-2017 End : 09-Dec-2017 [...] as of 16-Nov-2017 Procedures Procedure Dates Details GAYLE ROMEO ([id number]) Date: 17-Feb-2015 Completed 17-Feb-2015 Appendectomy Completed Colonoscopy Completed 04-Nov-2015 Comments: Within Normal Limits. Small adenoma removed- repeat in 5 years Tonsillectomy Completed Date Value Details 23-May-2018 PT D/C Summary (1) Result: Comments: See Note; NOTES: [facility] [address] [place] [address] Fax REHABILITATION SERVICES [facility] SUMMARY MR#: [id number] Acct: [id number] Name: CHELI NEUMANN Rep #: [id number] [...] PAIN. DOING HEP BUT HASN'T GONE TO [employer] BUT PLANS TO WHEN GOLFING SEASON IS OVER. PATIENT STATES HE DOESN'T THINK HE H TAKEN ANY ADVIL FOR ABOUT A MONTH. DRIVING TO [facility] FOR GOLF OUTING FOR A WEEK 36 [...] please feel free to call me at [phone]. Thank you for the referral of this patient. Rose Butterfield <Electronically signed by Rose Colunga PT, Cert. MDT> 05/23/18 1303 CC: Jessica Limon DO ANDREA Signed 18-Apr-2018 Re-Evaluation - PT (1) Result: Comments: See Note; NOTES: [facility] [address] [place] [address]. [address] [place], [place] [address] Fax REEVALUATION / MEDICARE RECERTI FICATION PHYSICAL THERAPY MR#: [id number] Acct: [id number] Name: CHELI NEUMANN Rep #: [id number] : 1950 67 From: Rose Colunga PT, Cert. MDT Referring DrArias: Jessica Limon DO Status: REG RCR Ins [...] REPORTS HE IS A MEMBER AT THE [employer]. STILL FEELING A LITTLE BIT OF TIGHTNESS [...] do not hesitate to contact me at [phone] by phone or if you have questions or concerns regarding this new plan of care! Sincerely, Rose Colunga <Electronically signed by Vicente Colunga PT, Cert. MDT> 04/18/18 1846 CC: Jessica Limon DO ANDREA Signed For Medicare only, by signing this I certify the plan of care. Physicians Signature Date 28-Mar-2018 Inital Evaluation (1) - PT Result: Comments: See Note; NOTES: [facility] [address] [place] [address] Fax REHABILITATION SERVICES INITIAL EVALUATION MR#: [id number] Acct: [id number] Name: CHELI NEUMANN Rep #: [id number] : 1950 67 From: Rose Colunga PT, [...] of: NO APPARENT REASON BUT DROVE TO [place] THE FOR A GOLF CL ASS. THE WEEK [...] to be FAXED BACK to us at [phone] for Medicare pur poses. Please let me know if there are questions or concerns regarding this plan of care. Physician Signature: Date: <Electronic ally signed by Rose Colunga PT, Cert. MDT> 03/28/18 1411 CC: Jessica Limon DO ANDREA Signed For Medicare only, by signing this I certify the plan of care. Physicians Signature Date 24-Mar-2018 Carotid Duplex Ultrasound Result: Comments: See Note; NOTES: [facility] Cardiovascular Services [address] [place] [address] Carotid Duplex Ultrasound 03/20/18 0956 MR#: [id number] Acct: [id number] Name: CHELI NOWAK Rep #: [id number] : 1950 67 From: David Mo MD Attending Dr: Jessica Limon DO Status: REG CLI Ordering Dr: Jessica Limon DO Date: 03/20/18 Location: [facility] Sex: M C Admitted: Reason For Study: [...] the left vertebral artery. Procedure Carotid Duplex 64106. Exam performed in department. Interpretation Sum lester No significant atherosclerotic plaque or stenosis noted in the right internal carotid artery. Mild (<50%) stenosis left extracranial internal carotid. Flow within the vertebral arteries is antegrade bilaterally. Ordering Physician: Jessica Limon Referring Physician: Jessica Limon ed By: Maykel, Bethany, RVT 03/24/18 0729 Date David Mo MD CC: Jessica Limon DO Date Dictated: 03/20/18 0956 Date Transcribed: 03/24/18728 Agitator Operator: Signed 21-Mar-2018 L/S Spine Min 4 Views Result: Comments: See Note; NOTES: [facility] Imaging Services [address] [place] [address] L/S Spine Min 4 Views MR#: [id number] Acct: [id number] Name: CHELI NEUMANN Rep #: [id number] : 1950 M 67 From: Phil Lazcano MD PCP: Jessica Limon DO Status: REG CLI Study: L/S Spine Min 4 Views Date of Exam: 03/21/18 Exam# [id number] Ordering Dr: Jessica Limon DO STUDY: X-RAY [...] Service support , CC: Jessica Limon DO Agitator Operator: Signed 16-Feb-2018 Chest without Contrast Result: Comments: See Note; NOTES: [facility] Imaging Services [address] [place] [address] Chest without Contrast MR#: [id number] Acct: [id number] Name: CHELI NEUMANN Rep #: [id number] : 1950 M 67 From: Kali Diaz MD PCP: Jessica Limon DO Status: REG CLI Study: Chest without Contrast Date of Exam: 02/16/18 Exam# [id number] Ordering Dr: Carlos Bowers MD STUDY: CT [...] CC: Jessica Limon DO; Carlos Bowers MD Agitator Operator: Signed 16-Nov-[address] Lung Screening Result: Comments: See Note; NOTES: [facility] Imaging Services [address] [place] [address] Lung Screening MR#: [id number] Acct: [id number] Name: CHELI NEUMANN Rep #: [id number] : 1950 M 66 From: Charbel Cunha MD PCP: Jessica Limon DO Status: [facility] Study: Low Dose CT Lung Screening Date of Exam: 11/16/17 Exam# [id number] Ordering Dr: Carlos Bowers MD STUDY: LOW [...] Charbel Cunha MD at 10:24 EDT Tel [phone], Service suppo rt , CC: Jessica Limon DO; Carlos Bowers MD Agitator Operator: Signed 22-Jun-2017 Thyroid Result: Comments: See Note; NOTES: [facility] Imaging Services [address] [place] [address] Thyroid MR#: [id number] Acct: [id number] Name: CHELI NEUMANN Rep #: [id number] : [birth year] M 66 From: Kali Diaz MD PCP: Jessica Limon DO Status: REG CLI Study: Thyroid Date of Exam: 06/22/17 Exam# [id number] Ordering Dr: Jessica Limon DO STUDY: THYROID ULTRASOUND REASON FOR EXAM: Saul alva, 66 years old. Nodules TECHNIQUE: Ultrasound evaluation [...] Service support , CC: Jessica Limon DO Agitator Operator: Signed 16-Mar-2017 Finger(s) Min 2 Views Result: Comments: See Note; NOTES: [facility] Imaging Services [address] [place] [address] Verdana 4d Finger(s) Min 2 Views MR#: [id number] Acct: [id number] Name: CHELI NEUMANN #: [id number] : 1950 M 66 From: Chas Kulkarni MD PCP: Jessica Limon DO Status: REG CLI Study: Finger(s) Min 2 Views Date of Exam: 03/16/17 Exam# [id number] Ordering Dr: Jessica Limon DO STUDY: X- [...] Service support , CC: Jessica Limon DO Agitator Operator: Signed 16-Mar-2017 Knee 4 or More Views Result: Comments: See Note; NOTES: [facility] Imaging Services [address] [place] [address] Verda 4d Knee 4 or More Views MR#: [id number] Acct: [id number] Name: CHELI NEUMANN Rep #: [id number] : 1950 [facility] From: Chas Kulkarni MD PCP: Jessica Limon DO Status: REG CLI Study: Knee 4 or More Views Date of Exam: 03/16/17 Exam# [id number] Ordering Dr: Jessica Limon DO STUDY: X-RA [...] Service support , CC: Jessica Limon DO Agitator Operator: Signed 01-Feb-2017 DXA BONE DENS W/VERT FX ASMT Result: Comments: See Note; NOTES: [facility] Imaging Services [address] [place] [address] Verdana 4d DXA BONE DENS W/VERT FX ASMT MR#: [id number] Acct: [id number] Name: IRVING NEUMANN A Rep #: [id number] : 1950 66 From: Charbel Cunha MD PCP: Jessica Limon DO Status: REG CLI Study: DXA BONE DENS W/VERT FX ASMT Date of Exam: 02/01/17 Exam# [id number] Ordering Dr: Marcelino Limon DO STUDY: DUAL [...] Charbel Cunha MD at 12:41 EDT Tel [phone], Service support , Fax CC: Jessica Limon DO Agitator Operator: Signed 01-Dec-2016 Carotid Duplex Ultrasound Result: Comments: See Note; NOTES: [facility] Cardiovascular Services [address] [place] [address] Carotid Duplex Ultrasound 11/29/16 0940 MR#: [id number] Acct: [id number] Name: CHELI NOWAK Rep #: [id number] : 1950 66 From: René Aiken MD Attending Dr: Jessica Limon DO Status: REG CLI Ordering Dr: Jessica Limon DO Date: 11/29/16 Location: [facility] Sex: M C Admitted: Reaso n For Study: Carotid stenosi Rt. Velocities/BP [...] the left vertebral artery. Procedure Carotid Duplex 38635. Exam performed in department. Interpretation Summary Mild (<50% ) stenosis right extracranial internal carotid. Mild (<50%) stenosis left extracranial internal carotid. Flow within the vertebral arteries is antegrade bilaterally. Ordering Physician: Jessica Limon Performed By: Bethany Brar RVT 12/01/16 1035 Date René Aiken MD CC: Jessica Limon DO Date Dictated: 11/29/16 0940 Date Transcribed: 12/01/16 1035 Agitator Operator: Signed 10-May-2016 Brain/Head W/WO Contrast Result: Comments: See Note; NOTES: [facility] Imaging Services [address] [place] [address] Verdana 4d Brain/Head W/WO Contrast MR#: [id number] Acct: [id number] Name: CHELI NEUMANN Rep #: [id number] : 1950 65 From: Chas Kulkarni MD PCP: Jessica Limon DO Status: REG CLI Study: Brain/Head W/WO Contrast Date of Exam: 05/10/16 Exam# [id number] Ordering Dr: Jessica Limon TUDY: CT BRAIN [...] Service support , CC: Jessica Limon DO Agitator Operator: Signed 06-May-2016 Thyroid Result: Comments: See Note; NOTES: [facility] Imaging Services [address] [place] [address] Verdana 4d Thyroid MR#: [id number] Acct: [id number] Name: CHELI NEUMANN Rep #: [id number] : 1950 M 65 From: Giorgio Hernandez MD PCP: Jessica Limon DO Status: REG CLI Study: Thyroid Date of Exam: 05/06/16 Exam# [id number] Ordering Dr: Jessica Limon DO STUDY: THYROID [...] at 7:32 EDT Tel , Service support [phone], F ax [phone] CC: Jessica Limon DO Agitator Operator: Signed 20-Apr-2016 Echocardiogram Complete Result: Comments: See Note; NOTES: [facility] Cardiovascular Services [address] [place] [address] Echo Complete 04/20/16 0829 MR#: [id number] Acct: [id number] Name: CHELI NEUMANN Rep #: [id number] : 1950 65 From: Neeraj Porter MD Attending Dr: Jessica Limon DO Status: REG CLI Ordering Dr: Jessica Limon DO Date: 04/20/16 Location: [facility] Sex: M C Admitted: Reason For Stud [...] Ordering Physician: Jessica Limon Performed By: Natalie Sarabia, AILEEN CS, RVT 04/20/16 1337 Date Neeraj Porter MD CC: Jessica Fast DO Date Dictated: 0829 Date Transcribed: 04/20/16 0967 Agitator Operator: Signed 20-Apr-2016 Nuclear Stress Test - Treadmil Result: Comments: See Note; NOTES: [facility] Imaging Services [address] [place] [address] Edwin 4d Nuclear Stress Test - Treadmil MR#: [id number] Acct: [id number] Name: CHELI NEUMANN Rep #: [id number] : 1950 65 From: Neeraj Porter MD [...] 68%. Neeraj Porter MD T: NTS JOB: [id number] 04/21/16 1019 <Electronically signed by Neeraj Porter MD> Date Neeraj Porter MD CC: Jessica Limon DO Date Dictated: 04/20/1650 Date Transcribed: 04/20/1650 Agitator Operator: Signed 07-Apr-2016 ELECTROCARDIOGRAM, COMPLETE (ECG) (80293) Comments: severe sinus lokesh- otherwise normal sinus- normal axis no acute st t wave changes Result: [MEASUREMENTS ANALYSIS] Date of Test: 04/07/2016 11:15:52; Heart Rate: 39; AR Interval: 192; QRS: 96; QT Interval: 462; Corrected QT Interval (QTc): 426; P Wave [place]: 69; QRS Wave [place]: 66; T Wave [place]: 50; Blood Pressure: 114/68 [ECG DIAGNOSTIC STATEMENTS] Date of Test: 04/07/2016 11:15:52; Summary: Marked sinus Bradycardia -With rate variation cv = 10.Low voltage in limb leads. ABNORMAL [MEASUREM ENTS ANALYSIS] Date of Test: 04/07/2016 11:14:53; Heart Rate: 41; AR Interval: 188; QRS: 96; QT Interval: 458; Corrected QT Interval (QTc): 425; P Wave [place]: 90; QRS Wave [place]: 65; T Wave [place]: 49; Bloo d Pressure: 114/68 [ECG DIAGNOSTIC STATEMENTS] Date of Test: 04/07/2016 11:14:53; Summary: Marked sinus Bradycardia -With rate variation cv = 22.Low voltage in limb leads. ABNORMAL 12-Dec-2015 Carotid Duplex Ultrasound Result: Comments: See Note; NOTES: [facility] Cardiovascular Services [address] [place] [address] Carotid Duplex Ultrasound 12/10/15 0904 MR#: [id number] Acct: [id number] Name: CHELI NEUMANN Rep #: [id number] : 1950 65 From: René Aiken MD [...] the left vertebral artery. Procedure Carotid Duplex 18751. The exam was diagnostic. Exam performed in department. Interpretation Summary Mild (<50%) stenosis right extracrania l internal carotid. Mild (<50%) stenosis left extracranial internal carotid. Flow within the vertebral arteries is antegrade bilaterally. There is elevated velocities throughout the entire r ight common and internal carotid arteries. Ordering Physician: Jessica Limon Performed By: Natalie Causey RDCS, RVT 12/12/151751 Date René Aiken MD CC: Jessica Limon DO Date Dictated: 12/10/15 0904 Date Transcribed: 12/12/151751 Agitator Operator: Signed 10-Dec-2015 Aorta Result: Comments: See Note; NOTES: [facility] Imaging Services [address] [place] [address] Verdana 4d Aorta MR#: [id number] Acct: [id number] Name: CHELI NEUMANN Rep # : [id number] : 1950 M 65 From: Charbel Cunha MD PCP: Jesisca Limon DO Status: REG CLI Study: Aorta Date of Exam: 12/10/15 Exam# [id number] Ordering Dr: Jessica Limon DO PROCEDURES: ULTRA [...] Cristina i, MD at 10:18 EDT Tel [phone], Service support [phone], CC: Jessica Limon DO Agitator Operator: Signed 23-Oct-2015 Spirometry (35140) Result: 08-Aug-2015 ELECTROCARDIOGRAM, COMPLETE (ECG) (36109) Comments: ekg showed normal sinus rhythym, normal axis, no acute st/t wave changes Result: [MEASUREMENTS ANALYSIS] Date of Test: 08/08/2015 11:57:53; Heart Rate: 57; AR Interval: 192; QRS: 94; QT Interval: 428; Corrected QT Interval (QTc): 423; P Wave [place]: 78; QRS Wave [place]: 76; T Wave [place]: 47; Blood Pressure: 120/72 [ECG DIAGNOSTIC STATEMENTS] Date of Test: 08/08/2015 11:57:53; Summary: Sinus Bradycardia Low voltage in limb leads. ABNORMAL 30-Jan-2015 Dexa Bone Density Study (HP) Result: Comments: See Note; NOTES: [facility] Imaging Services [address] [place] [address] Bone Density Report MR#: [id number] Acct: [id number] Name: CHELI NEUMANN Rep #: [id number] : 1950 M 64 From: Charbel Cunha MD PCP: Jessica Limon DO Status: REG CLI Study: Dexa Bone Density Study () Date of Exam: 01/30/15 Exam# [id number] Ordering Dr: Jessica Limon DO STUDY: DUAL ENERGY X-RAY ABSORPTIOMETRY / DXA REASON FOR EXAM: Male, 64 years old. Steroid use. TECHNIQUE: Bone Mineral Density (BMD) measurements of lumbar spine and bilateral hips were césar schumacher COMPARISON: Comparison is made with prior examination [...] Charbel Cunha MD at 15:54 EDT Tel [phone], Service support [phone], CC: Jessica Limon DO Agitator Operator: Signed 25-Sep-2014 Carotid Duplex Ultrasound Result: Comments: See Note; NOTES: [facility] Cardiovascular Services [address] [place] [address] Carotid Duplex Ultrasound 09/25/14 0850 MR#: [id number] Acct: [id number] Keo e: CHELI NEUMANN Rep #: [id number] : 1950 63 From: René Aiken MD Attending Dr: Jessica Limon DO Status: REG CLI Ordering Dr: Jessica Limon DO Date: 09/25/14 Location: [facility] Sex: M C Admitted : Rt. Velocities/BP [...] in the left bulb. Procedure Carotid Duplex 00573. Exam performed in department. Interpretation Summary Mild (<50%) stenosis right extracranial internal carotid. Mild (<50%) stenosis left extracranial internal carotid. Flow w ithin the vertebral arteries is antegrade bilaterally. Ordering Physician: Jessica Limon Perform ed By: Lynn Granados RDCS 09/25/14 1044 Date René Aiken MD CC: Jessica Limon DO Date Dictated: 09/25/14 0850 Date Transcribed: 09/25/14 1044 Agitator Operator: Signed 15-Mar-2014 EKG (21512) Comments: ekg showed rhythym with periods of irregular rhythm- not afib, normal axis, no acute st/t wave changes Result: [MEASUREMENTS ANALYSIS] Date of Test: 03/15/2014 07:58:47; Heart Rate: 57; AR Interval: 202; QRS: 98; QT Interval: 412; Corrected QT Interval (QTc): 407; P Wave [place]: 90; QRS Wave Richmond: 62; T Wave [place]: 52; Blood Pressure: 126/78 [ECG DIAGNOSTIC STATEMENTS] Date of Test: 03/15/2014 07:58:47; Summary: Sinus Bradycardia - occasional ectopic ventricular beat Low voltage in limb leads. -RSR(V1) -nondiagnostic. ABNORMAL Immunization Name Dates Details Zoster (shingles) on: 17-Feb-2015 Comments: Site: Posterior Upper Arm (Left) Lot #: [id number] Family History Unknown Family Member Name Dates [...] smoker Vital Signs Date Test Result Details 70-Cow-330911:05 Temperature 97.7 f Comments: Method: Temporal Pulse [...] kg/m2 Body Surface Area Calculated 2.13 m2 98-Dfw-190685:27 Temperature 97.2 f Comments: Method: Temporal Pulse [...] kg/m2 Body Surface Area Calculated 2.1 m2 76-Zps-865278:08 Temperature 97.1 f Comments: Method: Oral Pulse [...] kg/m2 Body Surface Area Calculated 2.1 m2 :57 Pulse 64 /min Comments: Pattern: Regular Respiration [...] kg/m2 Body Surface Area Calculated 2.08 m2 41-Dyt-171285:56 Temperature 97.4 f Pulse 60 /min Comments: [...] 2.08 m2 Results Date Description Value Details :32 DRUG ASSAY-PHENOBARBITOL (86524) Comments: PATIENT WAS FASTINGPERFORMED BY: [facility] [id number] Phenobarbital, Serum 18 ug/mL (Normal) Range: 15-40 Comments: Detection Limit = 3 :32 Phenytoin (Dilantin) (71804) Comments: PATIENT WAS FASTINGPERFORMED BY: [facility] [id number] [facility] [id number] Phenytoin (Dilantin), Serum 12.2 ug/mL (Normal) Range: 10.0-20.0 Comments: Detection Limit = 0.8 <0.8 Indicates None Detected :32 MICROALBUMIN: CREATININE RATIO Comments: PATIENT WAS FASTINGPERFORMED BY: [facility] CenterTkswdz3322 [facility] [id number] ([id number]) AND (10429) Alb/Creat Ratio <4.3 {mg/g_creat} (Normal) Range: 0.0-30.0 Albumin, Urine <3.0 ug/mL (Normal) Creatinine, Urine 70.5 mg/dL (Normal) :32 METABOLIC PANEL, COMPREHENSIVE Comments: PATIENT WAS FASTINGPERFORMED BY: [facility] Xkzabt1575 [facility] [id number] ([id number]) ALT (SGPT) 16 [iU]/L (Normal) Range: 0-44 [...] Glucose 86 mg/dL (Normal) Range: 65-99 :32 CBC W/AUTO DIFF WBC Comments: PATIENT WAS FASTINGPERFORMED BY: MARY ANNE [facility] CenterEohazw8390 [facility] [id number] Information: [id number] ([id number]) Immature Grans (Abs) 0.0 {x10E3/uL} (Normal) Range: [...] {x10E3/uL} (Normal) Range: 3.4-10.8 :32 HGB A1C (55386) Comments: PATIENT WAS FASTINGPERFORMED BY: [facility] CenterTqslgv8866 [facility] [id number] Hemoglobin A1c 5.4 % (Normal) Range: 4.8-5.6 Comments: . Pre-diabetes: 5.7 - 6.4 Diabetes: >6.4 Glycemic control for adults with diabetes: <7.0 :32 C-REACT PROT HIGH SENS(hsCRP) Comments: PATIENT WAS FASTINGPERFORMED BY: [facility] Ezbekw1776 [facility] [id number] (21421) C-Reactive Protein, Cardiac 7.13 mg/L (Abnormal) Range: 0.00-3.00 Comments: Relative Risk for Future Cardiovascular Event Low <1.00 Average 1.00 - 3.00 High >3.00 :32 Vitamin D Hydroxy (79495) Comments: PATIENT WAS FASTINGPERFORMED BY: [facility] Wykryy2051 [facility] [id number] Vitamin D, 25-Hydroxy 50.4 ng/mL (Normal) Range: 30.0-100.0 Comments: Vitamin D deficiency has been defined by the [place] [employer] and an Endocrine Society practice guideline as alevel of serum 25-OH vitamin D less than 20 ng/mL (1,2).The Endocrine Society went on to further define vitamin Dinsufficiency as a level between 21 and 29 ng/mL (2).1. IOM ([place] [employer]). 2010. Dietary reference intakes for calcium and D. Heart [place]: The National Academies Press.2. Mely MF, Jus NC, Sophie GUARDADO, et al. Evaluation, treatment, and prevention of vitamin D deficiency: an Endocrine Society clinical practice guideline. JCEM. 2010; 96(7):1911-30. :32 LIPID PANEL (51005) Comments: PATIENT WAS FASTINGPERFORMED BY: [facility] [id number] [facility] [id number] LDL/HDL Ratio 1.4 {ratio} (Normal) Range: 0.0-3.6 Comments: LDL/HDL Ratio Men Women 1/2 Avg.Risk 1.0 1.5 Av g.Risk 3.6 3.2 2X Avg.Risk 6.2 5.0 3X Avg.Risk 8.0 6.1 LDL Cholesterol Calc 85 mg/dL (Normal) Range: 0-99 VLDL Cholesterol Eliel 10 mg/dL (Normal) Range: 5-40 HDL Cholesterol 59 mg/dL (Normal) Triglycerides 49 mg/dL (Normal) Range: 0-149 Cholesterol, Total 154 mg/dL (Normal) Range: 100-199 28-Dec-20179:00 CBC, PLATELETS & AUT DIFF Comments: PATIENT NOT FASTINGPERFORMED BY: [employer] [facility] [id number] [facility] [id number] ([id number]) Immature Grans (Abs) 0.0 {x10E3/uL} (Normal) Range: [...] (Normal) Range: 3.4-10.8 28-Dec-20179:00 FOLIC ACID SERUM (81789) Comments: PATIENT NOT FASTINGPERFORMED BY: [facility] [id number] Folate (Folic Acid), Serum 16.2 ng/mL (Normal) Comments: A serum folate concentration of less than 3.1 ng/mL isconsidered to represent clinical deficiency. 28-Dec-20179:00 IRON BINDING CAPACITY (TIBC) Comments: PATIENT NOT FASTINGPERFORMED BY: [place] [id number] [facility] [id number] ([id number]) Iron Saturation 41 % (Normal) Range: 15-55 Iron 86 ug/dL (Normal) Range: 38-169 UIBC 123 ug/dL (Normal) Range: 111-343 Iron Bind.Cap.(TIBC) 209 ug/dL (Abnormal) Range: 250-450 28-Dec-20179:00 FERRITIN (95096) Comments: PATIENT NOT FASTINGPERFORMED BY: [facility] [id number] Ferritin, Serum 122 ng/mL (Normal) Range: 30-400 28-Dec-20179:00 LDH (LD) (LACTATE DEHYDROGENASE) Comments: PATIENT NOT FASTINGPERFORMED BY: [facility] [id number] ([id number]) LDH 169 [iU]/L (Normal) Range: 121-224 28-Dec-20179:00 VITAMIN B-12 (CYANOCOBALAMIN) Comments: PATIENT NOT FASTINGPERFORMED BY: [facility] [id number] (16353) Vitamin B12 627 pg/mL (Normal) Range: 232-1245 53-Mvz-042332:23 CBC W/AUTO DIFF WBC (31545) Comments: PATIENT NOT FASTINGPERFORMED BY: [facility] [id number] Immature Grans (Abs) 0.0 {x10E3/uL} (Normal) Range: [...] 4.14-5.80 WBC 5.4 {x10E3/uL} (Normal) Range: 3.4-10.8 62-Tgg-887094:23 DRUG ASSAY-PHENOBARBITOL (43614) Comments: PATIENT NOT FASTINGPERFORMED BY: F?rsat Bu F?rsatblin [place] [id number] Phenobarbital, Serum 19 ug/mL (Normal) Range: 15-40 Comments: Detection Limit = 3 40-Zzw-352525:23 Phenytoin (Dilantin) (07294) Comments: PATIENT NOT FASTINGPERFORMED BY: [facility]6370 [address] [place] [id number] Phenytoin (Dilantin), Serum 16.7 ug/mL (Normal) Range: 10.0-20.0 Comments: Detection Limit = 0.8 <0.8 Indicates None Detected 79-Drt-37888:03 Vitamin D Hydroxy (79019) Comments: PATIENT WAS FASTINGPERFORMED BY: Gre[place] CardicaD[place] [id number] Vitamin D, 25-Hydroxy 56.7 ng/mL (Normal) Range: 30.0-100.0 Comments: Vitamin D deficiency has been defined by the [place] of[place] and an Endocrine Society practice guideline as alevel of serum 25-OH vitamin D less than 20 ng/mL (1,2).The Endocrine Society went on to further define vitamin Dinsufficiency as a level between 21 and 29 ng/mL (2).1. IOM ([place] [employer]). 2010. Dietary reference intakes for calcium and D. Heart [place]: The National Academies Press.2. Mely MF, Jus CASTILLO, Sophie GUARDADO, et al. Evaluation, treatment, and prevention of vitamin D deficiency: an Endocrine Society clinical practice guideline. JCEM. 2010; 96(7):1911-30. :03 MICROALBUMIN: CREATININE RATIO Comments: PATIENT WAS FASTINGPERFORMED BY: [employer]70 [facility] [id number]; review 12/21 (00227) AND (10513) Alb/Creat Ratio 3.2 {mg/g_creat} (Normal) Range: 0.0-30.0 Albumin, Urine 3.5 ug/mL (Normal) Creatinine, Urine 108.8 mg/dL (Normal) :03 LIPID PANEL (96383) Comments: PATIENT WAS FASTINGPERFORMED BY: [facility]6370 [facility] [id number] LDL/HDL Ratio 1.6 {ratio} (Normal) Range: 0.0-3.6 Comments: LDL/HDL Ratio Men Women 1/2 Avg.Risk 1.0 1.5 Av g.Risk 3.6 3.2 2X Avg.Risk 6.2 5.0 3X Avg.Risk 8.0 6.1 LDL Cholesterol Calc 87 mg/dL (Normal) Range: 0-99 VLDL Cholesterol Eliel 12 mg/dL (Normal) Range: 5-40 HDL Cholesterol 54 mg/dL (Normal) Triglycerides 58 mg/dL (Normal) Range: 0-149 Cholesterol, Total 153 mg/dL (Normal) Range: 100-199 :03 METABOLIC PANEL, COMPREHENSIVE Comments: PATIENT WAS FASTINGPERFORMED BY: CB [employer]Niche70 [facility] [id number] (60539) ALT (SGPT) 16 [iU]/L (Normal) Range: 0-44 [...] 8-27 Glucose 86 mg/dL (Normal) Range: 65-99 81-Twt-80086:03 HGB A1C (68448) Comments: PATIENT WAS FASTINGPERFORMED BY: [employer]70 [facility] [id number] Hemoglobin A1c 5.5 % (Normal) Range: 4.8-5.6 Comments: . Pre-diabetes: 5.7 - 6.4 Diabetes: >6.4 Glycemic control for adults with diabetes: <7.0 :11 LIPID PANEL (98478) Comments: PATIENT WAS FASTINGPERFORMED BY: [employer]iche70 [facility] [id number] LDL/HDL Ratio 1.5 {ratio_units} (Normal) Range: 0.0-3.6 Comments: LDL/HDL Ratio Men Women 1/2 Avg.Risk 1.0 1.5 Av g.Risk 3.6 3.2 2X Avg.Risk 6.2 5.0 3X Avg.Risk 8.0 6.1 LDL Cholesterol Calc 93 mg/dL (Normal) Range: 0-99 VLDL Cholesterol Eliel 19 mg/dL (Normal) Range: 5-40 HDL Cholesterol 61 mg/dL (Normal) Triglycerides 97 mg/dL (Normal) Range: 0-149 Cholesterol, Total 173 mg/dL (Normal) Range: 100-199 32-Ome-72939:11 C-REACT PROT HIGH SENS(hsCRP) Comments: PATIENT WAS FASTINGPERFORMED BY: ttwick [facility] [id number] ([id number]) C-Reactive Protein, Cardiac 4.51 mg/L (Abnormal) Range: 0.00-3.00 Comments: Relative Risk for Future Cardiovascular Event Low <1.00 Average 1.00 - 3.00 High >3.00 60-Xnk-30881:11 DRUG ASSAY-PHENOBARBITOL (90527) Comments: PATIENT WAS FASTINGPERFORMED BY: ttwick [address] [id number] Phenobarbital, Serum 19 ug/mL (Normal) Range: 15-40 Comments: Detection Limit = 3 :11 Phenytoin (Dilantin) (98523) Comments: PATIENT WAS FASTINGPERFORMED BY: ttwick [facility] [id number]; review 09/21 Phenytoin (Dilantin), Serum 15.9 ug/mL (Normal) Range: 10.0-20.0 Comments: Detection Limit = 0.8 <0.8 Indicates None Detected :11 METABOLIC PANEL, COMPREHENSIVE Comments: PATIENT WAS FASTINGPERFORMED BY: ttwick [facility] [id number] ([id number]) ALT (SGPT) 16 [iU]/L (Normal) Range: 0-44 [...] Glucose, Serum 84 mg/dL (Normal) Range: 65-99 03-Gsz-01769:11 CBC W/AUTO DIFF WBC (84419) Comments: PATIENT WAS FASTINGPERFORMED BY: LabCoBayonne Medical CenterWfmgmx0154 [facility] [id number] Immature Grans (Abs) 0.0 {x10E3/uL} (Normal) Range: [...] 4.14-5.80 WBC 5.3 {x10E3/uL} (Normal) Range: 3.4-10.8 10-Bav-01756:11 Lyme Disease Antibody W/ Comments: PATIENT WAS FASTINGPERFORMED BY: F[facility] [id number] Reflex (82678) Lyme IgG/IgM Ab <0.91 {ISR} (Normal) Range: 0.00-0.90 Comments: Negative <0.91 Equivocal 0.91 - 1.09 Positive >1.09 2-Ifv-766977:15 C-Reactive Protein (73911) Comments: PATIENT NOT FASTINGPERFORMED BY: Weesh Yzghmy1351 [facility] [id number] C-Reactive Protein, Quant 7.5 mg/L (Abnormal) Range: 0.0-4.9 1-Hby-199078:15 RHEUMATOID FACTOR-QUANT (09221) Comments: PATIENT NOT FASTINGPERFORMED BY: [employer]70 [facility] [id number] RA Latex Turbid. <10.0 {IU/mL} (Normal) Range: 0.0-13.9 9-Het-186151:15 Lyme Disease Antibody W/ Comments: PATIENT NOT FASTINGPERFORMED BY: Weesh [facility] [id number] Reflex (82379) Lyme IgG/IgM Ab <0.91 {ISR} (Normal) Range: 0.00-0.90 Comments: Negative <0.91 Equivocal 0.91 - 1.09 Positive >1.09 :45 CBC W/AUTO DIFF WBC (86269) Comments: PATIENT WAS FASTINGPERFORMED BY: MARY ANNE IntroNiche70 [facility] [id number] Immature Grans (Abs) 0.0 {x10E3/uL} (Normal) Range: [...] PANEL, COMPREHENSIVE Comments: PATIENT WAS FASTINGPERFORMED BY: MARY ANNE LabCoGliAffidabili.itDvqzrx9587 [facility] [id number] (03484) ALT (SGPT) 40 [iU]/L (Normal) Range: 0-44 [...] Glucose, Serum 93 mg/dL (Normal) Range: 65-99 69-Xsh-29502:45 PSA (PROSTATE SPECIFIC Comments: PATIENT WAS FASTINGPERFORMED BY: [facility] Orcxsl9567 [facility] [id number] ANTIGEN) (V76.44) Prostate Specific Ag, 2.6 ng/mL (Normal) Range: 0.0-4.0 Serum Comments: Juan Antonio ECLIA methodology. .According to the [place] [employer], Serum PSA shoulddecrease and remain at undetectable levels after radicalprostatectomy. The AUA defines biochemical recurrence as an initialPSA value 0.2 ng/mL or greater followed by a subsequent confirmatoryPSA value 0.2 ng/mL or greater.Values obtained with d ifferent assay methods or kits cannot be usedinterchangeably. Results cannot be interpreted as absolute evidenceof the presence or absence of malignant disease. :32 DRUG ASSAY-PHENOBARBITOL (04071) Comments: PATIENT WAS FASTINGPERFORMED BY: [facility] Lmddsw[address] [facility] [facility] [place] [id number] Phenobarbital, Serum 17 ug/mL (Normal) Range: 15-40 Comments: Detection Limit = 3 :32 Phenytoin (Dilantin) (25951) Comments: PATIENT WAS FASTINGPERFORMED BY: [facility] Ueeayc1059 [facility] [id number] Phenytoin (Dilantin), Serum 14.8 ug/mL (Normal) Range: 10.0-20.0 Comments: Detection Limit = 0.8 <0.8 Indicates None Detected : METABOLIC PANEL, COMPREHENSIVE Comments: PATIENT WAS FASTINGPERFORMED BY: [facility] Etgbow2429 [facility] [id number] (79729) ALT (SGPT) 18 [iU]/L (Normal) Range: 0-44 [...] Glucose, Serum 73 mg/dL (Normal) Range: 65-99 44-Shx-331810:32 LIPID PANEL (52574) Comments: PATIENT WAS FASTINGPERFORMED BY: F[facility]at Bu [facility]at[facility] [id number] LDL/HDL Ratio 1.7 {ratio_units} (Normal) Range: 0.0-3.6 Comments: LDL/HDL Ratio Men Women 1/2 Avg.Risk 1.0 1.5 Av g.Risk 3.6 3.2 2X Avg.Risk 6.2 5.0 3X Avg.Risk 8.0 6.1 LDL Cholesterol Calc 100 mg/dL (Abnormal) Range: 0-99 VLDL Cholesterol Eliel 9 mg/dL (Normal) Range: 5-40 HDL Cholesterol 58 mg/dL (Normal) Triglycerides 47 mg/dL (Normal) Range: 0-149 Cholesterol, Total 167 mg/dL (Normal) Range: 100-199 25-Vyp-341598:32 HGB A1C (81413) Comments: PATIENT WAS FASTINGPERFORMED BY: Cur[facility]6370 [facility] [facility] [id number] Hemoglobin A1c 5.6 % (Normal) Range: 4.8-5.6 Comments: . Pre-diabetes: 5.7 - 6.4 Diabetes: >6.4 Glycemic control for adults with diabetes: <7.0 24-Rdf-872320:32 Vitamin D Hydroxy (96720) Comments: PATIENT WAS FASTINGPERFORMED BY: [employer]70 [address] [facility] [id number] Vitamin D, 25-Hydroxy 49.9 ng/mL (Normal) Range: 30.0-100.0 Comments: Vitamin D deficiency has been defined by the [place] [employer] and an Endocrine Society practice guideline as alevel of serum 25-OH vitamin D less than 20 ng/mL (1,2).The Endocrine Society went on to further define vitamin Dinsufficiency as a level between 21 and 29 ng/mL (2).1. IOM ([place] [employer]). 2010. Dietary reference intakes for calcium and D. Heart [place]: The National Academies Press.2. Mely MF, Jus CASTILLO, Sophie GUARDADO, et al. Evaluation, treatment, and prevention of vitamin D deficiency: an Endocrine Society clinical practice guideline. JCEM. 2010; 96(7):1911-30. 54-Qrb-507195:32 C-REACT PROT HIGH SENS(hsCRP) Comments: PATIENT WAS FASTINGPERFORMED BY: [employer]70 [place] [id number] (18006) C-Reactive Protein, Cardiac 7.94 mg/L (Abnormal) Range: 0.00-3.00 Comments: Relative Risk for Future Cardiovascular Event Low <1.00 Average 1.00 - 3.00 High >3.00 6-Upd-142805:56 Potassium Serum (93577) Comments: PATIENT NOT FASTINGPERFORMED BY: [employer] [facility] Ddcfnw6614 [address] [place] [employer] Technology[employer] [place] [id number] Information: [id number], 185811 Potassium, Serum 5.2 mmol/L (Normal) Range: 3.5-5.2 16-Uue-959849:29 Potassium Serum (33099) Comments: PATIENT NOT FASTINGPERFORMED BY: [employer] [facility] Dncgij6341 [address] [place] [employer] [id number] Potassium, Serum 5.3 mmol/L (Abnormal) Range: 3.5-5.2 75-Uqk-879394:29 DRUG ASSAY-PHENOBARBITOL (56205) Comments: PATIENT NOT FASTINGPERFORMED BY: [employer] [facility] Wzzbqf2327 [address] [place] [employer] [place] [id number] Phenobarbital, Serum 21 ug/mL (Normal) Range: 15-40 Comments: Detection Limit = 3 :29 Phenytoin (Dilantin) (11864) Comments: PATIENT NOT FASTINGPERFORMED BY: [employer] [facility] Ukrpic4449 [address]sworth RoadDublin [place] [id number] Phenytoin (Dilantin), Serum 13.8 ug/mL (Normal) Range: 10.0-20.0 Comments: : Therapeutic 6.0 - 14.0 . Detectio n Limit = 0.8 <0.8 Indicates None Detected 99-Enk-304956:29 HEPATITIS C ANTIBODY (56040) Comments: PATIENT NOT FASTINGPERFORMED BY: CancerIQBayonne Medical CenterOuqsaw3661 [facility] [id number] Hep C Virus Ab <0.1 {s/co_ratio} (Normal) Range: 0.0-0.9 Comments: Negative: < 0.8 Indeterminate: 0.8 - 0.9 Positive: > 0.9 . The CDC recommends that a positive HCV antibody result be followed up with a HCV Nucleic Acid Amplification test (526208). :58 HGB A1C (53311) Comments: PATIENT WAS FASTINGPERFORMED BY: CancerIQBayonne Medical CenterGwndkk3992 [facility] [id number] Hemoglobin A1c 5.6 % (Normal) Range: 4.8-5.6 Comments: . Pre-diabetes: 5.7 - 6.4 Diabetes: >6.4 Glycemic control for adults with diabetes: <7.0 :58 CBC W/AUTO DIFF WBC (34156) Comments: PATIENT WAS FASTINGPERFORMED BY: CancerIQDana Ville 4406270 [facility] [id number] Immature Grans (Abs) 0.0 {x10E3/uL} (Normal) Range: [...] PANEL, COMPREHENSIVE Comments: PATIENT WAS FASTINGPERFORMED BY: [facility]370 [facility] [id number] (33650) ALT (SGPT) 16 [iU]/L (Normal) Range: 0-44 [...] Glucose, Serum 84 mg/dL (Normal) Range: 65-99 :58 LIPID PANEL (39094) Comments: PATIENT WAS FASTINGPERFORMED BY: F?rsat Bu F[facility]atOur [facility] [id number] LDL/HDL Ratio 1.6 {ratio_units} Range: 0.0-3.6 (Normal) Comments: LDL/HDL Ratio Men Women 1/2 Avg.Risk 1.0 1.5 Av g.Risk 3.6 3.2 2X Avg.Risk 6.2 5.0 3X Avg.Risk 8.0 6.1 LDL Cholesterol Calc 92 mg/dL (Normal) Range: 0-99 VLDL Cholesterol Eliel 12 mg/dL (Normal) Range: 5-40 HDL Cholesterol 59 mg/dL (Normal) Triglycerides 60 mg/dL (Normal) Range: 0-149 Cholesterol, Total 163 mg/dL (Normal) Range: 100-199 Potassium, Serum 4.9 mmol/L (Normal) Comments: PATIENT NOT FASTINGPERFORMED BY: [facility] [id number] 0:01 Range: 3.5-5.2 :58 C-REACT PROT HIGH SENS(hsCRP) Comments: PATIENT WAS FASTINGPERFORMED BY: F?rsat Bu F?[facility]atOur [facility] Hospital [id number] (55316) C-Reactive Protein, Cardiac 6.91 mg/L (Abnormal) Range: 0.00-3.00 Comments: Relative Risk for Future Cardiovascular Event Low <1.00 Average 1.00 - 3.00 High >3.00 :28 TESTOSTERONE FREE (26754) Comments: PATIENT NOT FASTINGPERFORMED BY: [facility] Wbsxya5983 Ellsworth RoadDublin [place] [id number] BY: [place] 446057 [facility] [id number] Free Testosterone(Direct) 2.7 pg/mL (Abnormal) Range: 6.6-18.1 :38 Phenytoin (Dilantin) (89397) Comments: PATIENT WAS FASTINGPERFORMED BY: LabChristian [facility] Kvgwws5284 [address]sworth RoadDublin [place] [id number] Phenytoin (Dilantin), Serum 12.3 ug/mL (Normal) Range: 10.0-20.0 Comments: : Therapeutic 6.0 - 14.0 . Detectio n Limit = 0.8 <0.8 Indicates None Detected :38 Vitamin D Hydroxy (78207) Comments: PATIENT WAS FASTINGPERFORMED BY: Lab[facility] Rtktcd2704 [address]sworth RoadDublin [place] [id number] Vitamin D, 25-Hydroxy 57.6 ng/mL (Normal) Range: 30.0-100.0 Comments: Vitamin D deficiency has been defined by the [place] ofSt[facility] Hospitalcine and an Endocrine Society practice guideline as alevel of serum 25-OH vitamin D less than 20 ng/mL (1,2).The Endocrine Society went on to further define vitamin Dinsufficiency as a level between 21 and 29 ng/mL (2).1. IOM ([place] [employer]). 2010. Dietary reference intakes for calcium and D. Heart [place]: The National Academies Press.2. Mely MF, Jus CASTILLO, Sophie GUARDADO, et al. Evaluation, treatment, and prevention of vitamin D deficiency: an Endocrine Society clinical practice guideline. JCEM. 2010; 96(7):1911-30. :38 LIPID PANEL (97555) Comments: PATIENT WAS FASTINGPERFORMED BY: [facility]6370 [facility] [id number] LDL/HDL Ratio 1.3 {ratio_units} (Normal) Range: 0.0-3.6 Comments: LDL/HDL Ratio Men Women 1/2 Avg.Risk 1.0 1.5 Av g.Risk 3.6 3.2 2X Avg.Risk 6.2 5.0 3X Avg.Risk 8.0 6.1 LDL Cholesterol Calc 78 mg/dL (Normal) Range: 0-99 VLDL Cholesterol Eliel 9 mg/dL (Normal) Range: 5-40 HDL Cholesterol 59 mg/dL (Normal) Triglycerides 44 mg/dL (Normal) Range: 0-149 Cholesterol, Total 146 mg/dL (Normal) Range: 100-199 :38 MICROALBUMIN: CREATININE RATIO Comments: PATIENT WAS FASTINGPERFORMED BY: [facility]IQBayonne Medical CenterCvperm4782 [facility] [id number] (81370) AND (55933) Microalb/Creat Ratio <3.2 {mg/g_creat} (Normal) Range: 0.0-30.0 Microalbumin, Urine <3.0 ug/mL (Normal) Creatinine, Urine 95.2 mg/dL (Normal) :38 METABOLIC PANEL, COMPREHENSIVE Comments: PATIENT WAS FASTINGPERFORMED BY: [facility] [id number] (65242) ALT (SGPT) 14 [iU]/L (Normal) Range: 0-44 [...] mg/dL (Normal) Range: 65-99 :38 HGB A1C (07063) Comments: PATIENT WAS FASTINGPERFORMED BY: CancerIQBayonne Medical CenterRmovef3516 [facility] [id number] Hemoglobin A1c 5.6 % (Normal) Range: 4.8-5.6 Comments: . Pre-diabetes: 5.7 - 6.4 Diabetes: >6.4 Glycemic control for adults with diabetes: <7.0 :38 C-REACT PROT HIGH SENS(hsCRP) Comments: PATIENT WAS FASTINGPERFORMED BY: CancerIQBayonne Medical CenterLkqcmt6897 [facility] [id number] (71328) C-Reactive Protein, Cardiac 16.47 mg/L (Abnormal) Range: 0.00-3.00 Comments: Relative Risk for Future Cardiovascular Event Low <1.00 Average 1.00 - 3.00 High >3.00 9-Nmj-941873:28 PSA (PROSTATE SPECIFIC Comments: PATIENT NOT FASTINGPERFORMED BY: CancerIQBay[facility] Medical CenterQmcflf0593 [facility] [id number] BY: [address] [id number] ANTIGEN) (V76.44) Prostate Specific Ag, 1.6 ng/mL (Normal) Range: 0.0-4.0 Serum Comments: Juan Antonio ECLIA methodology. .According to the [place] [employer], Serum PSA shoulddecrease and remain at undetectable levels after radicalprostatectomy. The AUA defines biochemical recurrence as an initialPSA value 0.2 ng/mL or greater followed by a subsequent confirmatoryPSA value 0.2 ng/mL or greater.Values obtained with d ifferent assay methods or kits cannot be usedinterchangeably. Results cannot be interpreted as absolute evidenceof the presence or absence of malignant disease. 8-Xaf-954245:28 Phenytoin (Dilantin) Comments: PATIENT NOT FASTINGPERFORMED BY: CancerIQDana Ville 4406270 [facility] [id number] BY: LabBrenda Ville 390717 [facility] [id number] (05104) Phenytoin (Dilantin), Serum 18.8 ug/mL (Normal) Range: 10.0-20.0 Comments: : Therapeutic 6.0 - 14.0 . Detectio n Limit = 0.8 <0.8 Indicates None Detected 75-Cof-022528:24 Phenytoin (Dilantin) Comments: PATIENT NOT FASTINGPERFORMED BY: [facility]iZChelsea Hospital6370 [facility] [id number] Information: [id number], [id number] (51679) Phenytoin (Dilantin), Serum 15.8 ug/mL (Normal) Range: 10.0-20.0 Comments: : Therapeutic 6.0 - 14.0 . Detectio n Limit = 0.8 <0.8 Indicates None Detected 83-Rss-900559:19 Phenytoin (Dilantin) (62189) Comments: Order Date: 04/08/16Order Date: 04/08/16Time Medication is to be Given? [facility] Odhhfgydkt[address] [place], [address] PHENYTOIN 21.2 mL (Abnormal) Range: 10.0-20.0 Comments: Resulst Called to Charline 04/08/16 at 1450 by CCRYTZER.Results read back by [employer]line. :34 CBC W/Diff, Automated Comments: [facility] Vtxubxxisq4[address] [place], [address] Absolute Lymph 2.34 {X10_3/ul} (Normal) Range: 0.83-4.51 [...] Range: 4.4-11.0 :34 Comprehensive Metabolic Profil Comments: [facility] Wtkzbzqyse5[address] [place], [id number] GAP 4 (Abnormal) Range: 5-15 CO2 31.0 [...] 7-18 GLU 75 mg/dL (Normal) Range: 70-110 01-Lud-558389:34 Magnesium Comments: [facility] [address] [place], [place], [phone](722) MG 2.2 mg/dL (Normal) Range: 1.8-2.4 54-Thk-482655:34 Phenobarbital Comments: Time Medication is to be Given? 0000[facility] [address] [place], [place], [phone](414) PHENOBARB 22.0 ug/mL (Normal) Range: 10.0-40.0 60-Ikc-490434:34 Phenytoin (Dilantin) Level Comments: Time Medication is to be Given? 0000[facility] [address] [place], [place], [phone](278) PHENYTOIN 28.3 mL (Abnormal) Range: 10.0-20.0 Comments: Critical Result(s) Called at: 14:19:48 04/07/2016 by: Katlin kahn at [facility] 56-Rpv-560420:34 Thyroid Stim Hormone (TSH) Comments: [facility] Uhwueicqsu[address] [place], [address] TSH 1.55 {uIU/mL} (Normal) Range: 0.358-3.74 07-Uen-726649:34 Vitamin B12 1009 pg/mL (Abnormal) Comments: [facility] Xhxgauzgch8357 [facility] [address]. [place], [id number] Range: 211-911 75-Atp-98598:11 CBC W/Diff, Automated Comments: [facility] [address]bwv[address] [place], [address] Absolute Lymph 1.51 {X10_3/ul} (Normal) Range: 0.83-4.51 [...] 4.6-6.2 WBC 5.0 K/mm3 (Normal) Range: 4.4-11.0 :11 Comprehensive Metabolic Profil Comments: [facility] [address] [place], [place], [phone] GAP 7 (Normal) Range: 5-15 CO2 25.0 [...] (Normal) Range: 70-110 :11 Lipid Profile Comments: [facility] [address] [place], [place], [id number] VLDL 10 mg/dL (Normal) Range: 5-40 LDL [...] Comments: Time Medication is to be Given? 0000[facility] [address]weeu[address] [place], [address] PHENOBARB 19.8 ug/mL (Normal) Range: 10.0-40.0 :11 Phenytoin (Dilantin) Level Comments: Time Medication is to be Given? 0000[facility] Odywsdhewk0[address] [place], [address] PHENYTOIN 17.4 mL (Normal) Range: 10.0-20.0 :11 Vitamin D,25 Hydroxy Comments: [facility] [address]uxxssj[address] [place], [address] Vitamin D 25-OH 42.5 ng/mL (Normal) Comments: Vitamin D 25(OH) Status Range Deficiency <20 ng/mL (50nmol/L) Insuffciency 20 - 30 ng/mL (50 - 75 nmol/L) Sufficiency 30 - 100 ng/mL (75 - 250 nmol/L) Toxicity >100 ng/mL (>250 nmol/L) :15 COLON BIOPSY (CHOOSE See Note (Normal) Comments: [facility] [address]xmncfiaeg3[address] [place], [address] SITE) Comments: Patient: CHELI NEUMANN : 1950 (64/M) Acct Num: [id number] Phys: Landon Werner Unit Num: [id number] Loc: LABSPEC Specimen: [id number] Received: 11/04/15 - 1547 Spec Type: Pete SOLOMON TISSUES TISSUES: GROSS DESCRIPTION Received is one container labeled with the patient name and designated polyp transverse colon. The specimen consists of multiple irregula r fragments of light caballero soft tissue that in aggregate measure 0.4 x 0.4 x 0.1 cm. The specimen is totally submitted in one cassette. / CHRISTIN:desirae 05/01/16 TC:1 CPT: 75520 HEADER OPERATION: Colonoscopy with biopsy PRE-OP DIAGNOSIS: History of polyps TISSUE SUBMITTED: Polyp transverse colon, rule out adenoma MICROSCOPIC DESCRIPTION Slides are reviewed. MICROSCOPIC DIAGNOSIS Polyp trans verse colon, biopsy: Fragments of tubular adenoma. CHRISTIN:whit 11/06/15 Signed Tanner aCrey 11/06/15 <signature on file> :13 Lipid Profile Comments: [facility] Stdkqeqeii[address] [place], [address] VLDL 13 mg/dL (Normal) Range: 5-40 LDL [...] Comments: Time Medication is to be Given? 2099[facility] S[address]iskwucwn[address] [place], [address] PHENOBARB 19.2 ug/mL (Normal) Range: 10.0-40.0 :13 Phenytoin (Dilantin) Level Comments: Time Medication is to be Given? 2099[facility] [address]gtzcdp[address] [place], [address] PHENYTOIN 19.8 mL (Normal) Range: 10.0-20.0 :13 Vitamin D,25 Hydroxy Comments: [facility] Pxofpqsdqi6797 [place], [address] Vitamin D 25-OH 30.7 ng/mL (Normal) Comments: Vitamin D 25(OH) Status Range Deficiency <20 ng/mL (50nmol/L) Insuffciency 20 - 30 ng/mL (50 - 75 nmol/L) Sufficiency 30 - 100 ng/mL (75 - 250 nmol/L) Toxicity >100 ng/mL (>250 nmol/L); ADDENDA: non-emergent till apt :11 CBC W/Diff, Automated Comments: Test performed at:[facility] [address] [address] ; will reivew at 02/17 appt [...] 4.6-6.2 WBC 7.3 K/mm3 (Normal) Range: 4.4-11.0 :11 Comprehensive Metabolic Profil Comments: Test performed at:[facility] [address] [facility] [address] [place], [place] [id number] GAP 6 (Normal) Range: 5-15 CO2 25.0 [...] 70-110 :11 Lipid Profile Comments: Test performed at:[facility] [address] [place], [place] [id number] VLDL 12 mg/dL (Normal) Range: 5-40 LDL [...] Medication is to be Given? ??2000Test performed at:[facility] [address] [facility] ??[place], [place] ??[address] PHENOBARB 19.4 ug/mL (Normal) Range: 10.0-40.0 :11 Phenytoin (Dilantin) Level Comments: Time Medication is to be Given? 2000Test performed at:[facility] [address] [facility] [place] [address] PHENYTOIN 18.1 ug/mL (Normal) Range: 10.0-20.0 :11 PSA,Total - Annual Screen Comments: Test performed at:[facility] [address] [place] [address] PSA,TOT SCREEN 2.27 ng/mL (Normal) Range: 0.00-4.00 Comments: This test was performed using the TPSA assay method for the[facility] chemistry system. Values obtained with differentassay methods cannot be used interchangably.When changing PSA assays in the course of monitoring apatient, additional sequential testing should be carriedout to confirm baseline values. :11 Vitamin D,25 Hydroxy Comments: Test performed at:[facility] [address] [place] [address] Vitamin D 25-OH 34.3 ng/mL (Normal) Comments: Vitamin D 25(OH) Status Range Deficiency <20 ng/mL (50nmol/L) Insuffciency 20 - 30 ng/mL (50 - 75 nmol/L) Sufficiency 30 - 100 ng/mL (75 - 250 nmol/L) Toxicity >100 ng/mL (>250 nmol/L) :04 Phenobarbital Comments: Has pt arrived? YTime Medication is to be Given? 0000Test performed at:[facility] [address] [place] [address] PHENOBARB 18.5 ug/mL (Normal) Range: 10.0-40.0 :04 Phenytoin (Dilantin) Level Comments: Has pt arrived? YTime Medication is to be Given? 0000Test performed at:[facility] [address] [place] [address] PHENYTOIN 16.3 ug/mL (Normal) Range: 10.0-20.0 5-Odf-141398:28 Phenytoin (Dilantin) Level Comments: CRITICAL VALUE REPEATED AND VERIFIED. CALLED TO Khurram DICKSON09/06/14 Christin Moya.RESULTS READ BACK BY SAME.Time Medication is to be Given? 1000Test performed at:[facility] [address] [place] [address] PHENYTOIN 22.4 ug/mL (Abnormal) Range: 10.0-20.0 :19 CBC W/Diff, Automated Comments: Has pt arrived? YTest performed at:[facility] [address] ??[place], [place] ??[address] Absolute Lymph 1.89 {X10_3/ul} (Normal) Range: 0.83-4.51 [...] 4.6-6.2 WBC 6.1 K/mm3 (Normal) Range: 4.4-11.0 :19 Comprehensive Metabolic Profil Comments: Has pt arrived? YTest performed at:[facility] [address] [place] [address] GAP 5 (Normal) Range: 5-15 CO2 27.0 [...] Profile Comments: Has pt arrived? YTest performed at:[facility] [address] [place] [address] VLDL 12 mg/dL (Normal) Range: [...] Hydroxy Comments: Has pt arrived? YTest performed at:[facility] [address] [place], [place] [id number] Vitamin D 25-OH 31.9 ng/mL (Normal) Comments: Vitamin D 25(OH) Status Range Deficiency <20 ng/mL (50nmol/L) Insuffciency 20 - 30 ng/mL (50 - 75 nmol/L) Sufficiency 30 - 100 ng/mL (75 - 250 nmol/L) Toxicity >100 ng/mL (>250 nmol/L) 6-Iiq-218131:46 Aerobic Bacterial Culture Comments: PATIENT NOT FASTINGPERFORMED BY: MARY ANNE [facility] [id number] Result 1 Mixed skin olivia (Normal) Aerobic Bacterial Culture Final report (Normal) 29-Mar-20147:07 DRUG ASSAY-PHENOBARBITOL Comments: PATIENT NOT FASTINGPERFORMED BY: [facility] Huqueb8322[facility] [id number] Information: [id number],NO DRAW FEE (96611) Phenobarbital, Serum 15 ug/mL (Normal) Range: 15-40 Comments: Detection Limit = 2 <2 indicates None Detected 08-Sun-863980:33 DRUG ASSAY-PHENOBARBITOL Comments: PATIENT NOT FASTINGPERFORMED BY: [facility] [address] [id number] Information: [id number] ([id number]) Pentobarbital None Detected ug/mL (Normal) Range: 1-5 Comments: Detection Limit = 1 28-Feb-20147:16 CBCD Comments: will review ay 03/15 appt. [...] CHOL 158 mg/dL (Normal) Comments: <200 mg/dL Iyvhcuivh659-051 mg/dL Borderline>240 mg/dL High Risk :16 PSA 1.08 ng/mL (Normal) Range: 0.00-4.00 Comments: This test was performed using the TPSA assay method for the[facility] chemistry system. Values obtained with differentassay methods [...] >100 ng/mL (>250 nmol/L) :33 Rapid Flu (66432 x 2) Comments: neg Influenza A Ag [...] CHOL 169 mg/dL (Normal) Comments: <200 mg/dL Hetlflovx952-213 mg/dL Borderline>240 mg/dL High Risk TRIG 58 [...] - 250 nmol/L)Toxicity >100 ng/mL (>250 nmol/L) 01-Nrp-670094:13 DEXA BONE DENSITY STUDY (HP) Radiology Report [...] considered osteoporotic, as outlined above, according [facility] Organization (WHO) cri liliam. Fracture risk is high. Reference Information:The T-score [...] Cunha M.D.September 26, 2012 at 4:13:45 PM [phone] Signed GP/GP If you are the referring physician and would like to consult with theradiologist who provided this interpretation, please contact Connie Gutiérrez at [phone]. If this radiologist is unavailable, [facility]will [facility] to [facility] to assist. If you are a patient with a question regarding this report, pleasecontactyour referring physician directly. Professional Interpretation Provided By: [employer], Phone , These documents contain legally protected [...] on 09/26/12 1632 by ITS IMPORTSign by Nicole GORDILLO,Charbel on 09/26/12 1633 Sign by: Charbel Cunha MD :07 CBCMD RBCM NORM C+C {NORMAL} (Normal) PE [...] 7-18 GLU 95 mg/dL (Normal) Range: 70-110 DIL 17.5 ug/mL (Normal) Range: 10.0-20.0 :07 [...] Very High > or = 500 mg/dL PHEN 18.4 ug/mL (Normal) Range: 10.0-40.0 PSA 1.36 ng/mL (Normal) Range: 0.00-4.00 VITD 40.0 ng/mL (Normal) Range: 30.0-100.0 Comments: Vitamin D deficiency has been defined by the [place] [employer] and an Endocrine Society practice guideline as alevel of serum 25-OH vitamin D less than 20 ng/mL (1,2).The Endocrine Society went on to further define vitamin Dinsufficiency as a level between 21 and 29 ng/mL (2).1. IOM ([place] [employer]). 2010. Dietary reference intakes for calcium and D. Heart [place]: The National Academies Press.2. Mely MF, Jus CASTILLO, Sophie GUARDADO, et al. Evaluation, treatment, and prevention of vitamin D deficiency: an Endocrine Society clinical practice guideline. JCEM. 2010; 96(7): 1911-30.Performed at: - [facility] [id number] Director: Keith Nance PhD, Phone: [phone] :[phone] DIL 12.4 ug/mL (Normal) Range: 10.0-20.0 [...] D deficiency has been defined by the [place] [employer] and an Endocrine Society practice guideline as alevel of serum 25-OH vitamin D less than 20 ng/mL (1,2).The Endocrine Society went on to further define vitamin Dinsufficiency as a level between 21 and 29 ng/mL (2).1. IOM ([place] [employer]). 2010. Dietary reference intakes for calcium and D. Heart [place]: The National Academies Press.2. Mely MF, Jus CASTILLO, Sophie GUARDADO, et al. Evaluation, treatment, and prevention of vitamin D deficiency: an Endocrine Society clinical practice guideline. JCEM. 2010; 96(7): 1911-30.Performed at: [address] [id number] Director: Jacquelyn Charles MD, Phone: [phone] 46-Hll-231339:28 LOWER EXT.JOINT ONLY (ROUTINE) Radiology Report See [...] Go M.D.December 24, 2011 at 8:26:04 PM [facility] Signed DAVIDE/DAVIDE Professional Interpretation Provided By: [facility], , To consult with a radiologist regarding this report, please call our 2 7O3tdpufsv line @ Dictated on 12/24/11 1335 by Tomas Go MDTranscribed on 12/24/112029 by ITS IMPORTSign by Tomas oG MD on 12/24/112030 Sign by: Tomas Go [...] ng/mL (Normal) Range: 0.0-4.0 :08 TEST FR [id number] 5.0 pg/mL (Abnormal) Range: 6.6-18.1 Comments: Performed at: [facility] [address] [id number] Director: Jacquelyn Charles MD, Phone: [phone] at: [facility] [place] [address]Rxy Director: Joseph Sevilla MD, Phone: [phone] :[phone] TSH 0.98 {uIU/mL} (Normal) Range: 0.358-3.74 :08 VIT D,25 30150 30.9 ng/mL (Abnormal) Range: 32.0-100.0 Comments: Effective July 19, 2011 Vitamin D, 25-Hydroxy reference intervals will be changing to 30-100. .Recent studies consider the lower li alta of 32.0 ng/mL to be athreshold for optimal health.Horace ROBLES. J Nutr. 2004;135(2):317-22. 6-Blo-780113:57 DEXA BONE DENSITY STUDY () Radiology Report See Note (Normal) Comments: Exam Number: [id number] LINICAL:This is a 59-year-old male patient with history of osteopenia. EXAMINATION:DUAL ENERGY X-RAY ABSORPTIOMETRY / DEXA. TECHNIQUE:Bone Density Measurements (BMD) of lumbar spi ne and bilateral hips were obtained using a RADEUM scanner.. COMPARISON:Comparison is made with prior examination [...] below -2.5 Osteoporosis As a practical c [facility] hospital[facility] guideline, osteopenia may be graded as follows:Mild [...] Report See Note (Normal) Comments: Exam Number: [id number] LINICAL:59-year-old male complains of shortness of breath. [...] 3.7 mg/dL (Normal) Range: 2.5-4.9 :35 :35 PROT.[id number] GAMMA GLOB,U 19.7 % (Normal) M-SPIKE,U SeeNote % (Normal) Comments: Result: Not Observed NOTE Comment (Normal) Comments: Protein electrophoresis scan will follow via computer,mail, or rn wound delivery. ALBUMIN,UR 26.3 % (Normal) BXYKZ-1-LCHI,U 2.7 % (Normal) SJSRA-7-XRXH,U 12.9 % (Normal) BETA GLOB,U 38.4 % (Normal) PROTEIN,UR 6.2 mg/dL (Normal) Range: 0.0-15.0 :35 PTH,Intact 42 pg/mL (Normal) Range: 14-72 :35 SPE [id number] A/G RATIO 1.4 (Normal) Range: 0.7-2.0 INTERPRETATION Comment (Normal) Comments: The SPE pattern appears essentially unremarkable. Evidenceof monoclonal protein is not apparent.Protein electrophoresis scan will follow via computer,mail, or rn wound delivery. ALBUMIN 3.9 g/dL (Normal) Range: 3.2-5.6 ALPHA-1 GLOBUL 0.3 g/dL (Normal) Range: 0.1-0.4 ALPHA-2 GLOBUL 0.7 g/dL (Normal) Range: 0.4-1.2 BETA GLOBULIN 0.8 g/dL (Normal) Range: 0.6-1.3 GAMMA GLOBULIN 0.9 g/dL (Normal) Range: 0.5-1.6 GLOBULIN, TOTAL 2.7 g/dL (Normal) Range: 2.0-4.5 M-SPIKE SeeNote g/dL (Normal) Comments: Result: Not Observed PROTEIN,TOTAL 6.6 g/dL (Normal) Range: 6.0-8.5 :35 TEST FR [id number] 3.4 pg/mL (Abnormal) Range: 6.6-18.1 :35 TSH 0.89 {uIU/mL} (Normal) Range: 0.358-3.74 :35 VIT D,25 53896 35.5 ng/mL (Normal) Range: 32.0-100.0 Comments: Recent studies consider the lower limit of 32.0 ng/mL to harsh threshold for optimal health.Horace BW. J Nutr. 2004;135(2):317-22.Performed at: [address] [id number] Director: Jacquelyn Charles MD, Phone: [phone] at: [address] [id number] Director: Joseph Sevilla MD, Phone: [phone] Plan of Care Name Dates Details Instructions Low back pain potentially associated with radiculopathy [...] *: convulsions Indication: Seizure disorder Planned Observations Phenytoin (Dilantin) (79218)Indication: Generalized convulsive seizure On: 0-Dzt-680387:40 Request CBC with auto diff (29017)Indication: Anemia On: 5-Pcl-527129:40 Request METABOLIC PANEL, COMPREHENSIVE (47299)Indication: Elevated hemoglobin A1c On: 2-Kub-479171:39 Request DRUG ASSAY-PHENOBARBITOL (67723)Indication: Generalized convulsive seizure On: 17-Dna-204655:38 Request FECAL OCCULT- Tubes sent home (96783)Indication: Anemia On: 14-Ohv-257003:31 Request IRON (86993)Indication: Anemia On: 36-Wng-980109:31 Request LIPID PANEL (81577)Indication: Hyperlipidemia On: 74-Ekc-858989:30 Request METABOLIC PANEL, COMPREHENSIVE (07517)Indication: Elevated hemoglobin A1c On: 19-Nao-246337:29 Request HGB A1C (27173)Indication: Elevated hemoglobin A1c On: 85-Tfl-461596:29 Request CBC W/AUTO DIFF WBC (10470)Indication: Osteoporosis On: 85-Ajt-017427:27 Request DRUG ASSAY-PHENOBARBITOL (98428)Indication: Generalized convulsive seizure On: 88-Gym-777769:27 Request Phenytoin (Dilantin) (15405)Indication: Generalized convulsive seizure On: 72-Uou-544689:26 Request HGB A1C (68176)Indication: Prediabetes On: :17 Request CBC with auto diff (33084)Indication: Generalized convulsive seizure On: :13 Request C-REACT PROT HIGH SENS(hsCRP) (00406)Indication: Elevated high sensitivity C-reactive protein On: :13 Request LIPID PANEL (92387)Indication: Bilateral carotid artery stenosis On: :12 Request METABOLIC PANEL, COMPREHENSIVE (67069)Indication: Bilateral carotid artery stenosis On: :12 Request Phenytoin (Dilantin) (81045)Indication: Generalized convulsive seizure On: 6-Tnf-123428:00 Request Comments: 1 month Metabolic Panel, Basic (96212)Indication: Dizziness On: 3-Aoq-517070:14 Request DRUG ASSAY-TOT PHENYTOIN (28460)Indication: Poisoning by phenytoin, accidental or unintentional, subsequent encounter On: 78-Tmb-899481:35 Request Magnesium (76599)Indication: Dizziness On: :28 Request Comments: stat CBC W/AUTO DIFF WBC (91077)Indication: Dizziness On: :28 Request Comments: stat TSH (92130)Indication: Dizziness On: 59-Per-933352:22 Request Comments: stat METABOLIC PANEL, COMPREHENSIVE (14092)Indication: Dizziness On: 82-Npn-504877:22 Request Comments: stat DRUG ASSAY-PHENOBARBITOL (19646)Indication: Dizziness On: :18 Request Comments: stat Phenytoin (Dilantin) (60370)Indication: Dizziness On: :18 Request Comments: stat VITAMIN B-12 (CYANOCOBALAMIN) (82770)Indication: Dizziness On: 01-Pms-045706:13 Request DRUG ASSAY-PHENOBARBITOL (22735)Indication: Seizure disorder On: 93-Spu-646214:26 Request Phenytoin (Dilantin) (67859)Indication: Seizure disorder On: : Request PSA (PROSTATE SPECIFIC ANTIGEN) (V76.44)Indication: Screening for prostate cancer On: : Request METABOLIC PANEL, COMPREHENSIVE (02823)Indication: Bilateral carotid artery stenosis On: :24 Request LIPID PANEL (48480)Indication: Bilateral carotid artery stenosis On: :24 Request Vitamin D Hydroxy (51895)Indication: Vitamin D deficiency, unspecified On: : Request Phenytoin (Dilantin) (38258)Indication: Seizure disorder On: :09 Request DRUG ASSAY-PHENOBARBITOL (69996)Indication: Seizure disorder On: :09 Request PSA (PROSTATE SPECIFIC ANTIGEN) (V76.44)Indication: Encounter for screening for malignant neoplasm of prostate (Renamed from Screening for prostate cancer) On: :09 Request CBC W/AUTO DIFF WBC (84921)Indication: Seizure disorder On: : Request METABOLIC PANEL, COMPREHENSIVE (14901)Indication: Seizure disorder On: :09 Request LIPID PANEL (57224)Indication: Bilateral carotid artery stenosis On: 09-Htf-199112:09 Request Vitamin D Hydroxy (58786)Indication: Vitamin D deficiency, unspecified On: :08 Request METABOLIC PANEL, COMPREHENSIVE (91054)Indication: Osteoporosis On: :08 Request LIPID PANEL (01061)Indication: Bilateral carotid artery stenosis On: :52 Request DRUG ASSAY-PHENOBARBITOL (18930)Indication: Seizure disorder On: :52 Request Phenytoin (Dilantin) (59324)Indication: Seizure disorder On: :51 Request Vitamin D Hydroxy (50328)Indication: Vitamin D deficiency, unspecified On: :51 Request DRUG ASSAY-PHENOBARBITOL (12888)Indication: Seizure disorder On: :10 Request PSA (PROSTATE SPECIFIC ANTIGEN) (V76.44)Indication: Screening for prostate cancer On: : Request CBC W/AUTO DIFF WBC (09555)Indication: Seizure disorder On: :09 Request METABOLIC PANEL, COMPREHENSIVE (17233)Indication: Seizure disorder On: :09 Request LIPID PANEL (74047)Indication: Bilateral carotid artery stenosis On: :09 Request Phenytoin (Dilantin) (33681)Indication: Seizure disorder On: :06 Request Vitamin D Hydroxy (31289)Indication: Osteoporosis On: :00 Request DRUG ASSAY-PHENOBARBITOL (19811)Indication: Seizure disorder On: :49 Request Phenytoin (Dilantin) (36770)Indication: Seizure disorder On: :49 Request Phenytoin (Dilantin) (96894)Indication: Cardiac dysrhythmia On: :01 Request Culture, Aerobic, Bacterial ID ([id number])Indication: Sebaceous cyst of ear On: :55 Request CBC WITH MANUAL DIFF (38828)Indication: Seizure disorder On: :49 Request METABOLIC PANEL, COMPREHENSIVE (14252)Indication: Osteoporosis On: :49 Request LIPID PANEL (49698)Indication: Bilateral carotid artery stenosis On: :49 Request Vitamin D Hydroxy (92854)Indication: Vitamin D deficiency, unspecified On: :46 Request CBC WITH MANUAL DIFF (52808)Indication: Seizure disorder On: :02 Request METABOLIC PANEL, COMPREHENSIVE (22651)Indication: Seizure disorder On: :02 Request LIPID PANEL (33577)Indication: Bilateral carotid artery stenosis On: :02 Request Phenytoin (Dilantin) (43278)Indication: Seizure disorder On: :01 Request Vitamin D Hydroxy (39697)Indication: Vitamin D deficiency, unspecified On: :59 Request PSA (PROSTATE SPECIFIC ANTIGEN) (V76.44)Indication: Screening for prostate cancer On: :57 Request Phenytoin (Dilantin) (87338)Indication: Seizure disorder On: :03 Request CBC WITH MANUAL DIFF (61097)Indication: Osteoporosis On: 42-Geg-478471:03 Request METABOLIC PANEL, COMPREHENSIVE (85919)Indication: Osteoporosis On: 25-Awa-606119:03 Request LIPID PANEL (00207)Indication: Bilateral carotid artery stenosis On: 92-Krr-476488:03 Request Vitamin D Hydroxy (99071)Indication: Vitamin D deficiency, unspecified On: 20-Scn-798592:02 Request TSH (33148)Indication: Osteoporosis On: 58-Mdm-589233:02 Request DRUG ASSAY-PHENOBARBITOL (41700)Indication: Seizure disorder On: 87-Mop-665448:49 Request CBC with manual diff (13679)Indication: Encounter for long-term (current) use of medications On: 03-Auc-024389:47 Request Metabolic Panel, Comprehensive (57403)Indication: Encounter for long-term (current) use of medications On: 12-Sej-285389:47 Request Lipid Panel (07480)Indication: Encounter for long-term (current) use of medications On: 61-Mzf-471531:47 Request PSA (PROSTATE SPECIFIC ANTIGEN) (49964)Indication: Screening for prostate cancer On: 32-Sgv-422381:47 Request Phenytoin (Dilantin) (62209)Indication: Seizure disorder On: 28-Hrx-735108:45 Request CALCIFEDIOL (24036)Indication: Vitamin D deficiency, unspecified On: 05-Tyf-219529:44 Request DRUG ASSAY-PHENOBARBITOL (51157)Indication: Encounter for long-term (current) use of medications On: 56-Ddn-43602:32 Request DRUG ASSAY-PHENOBARBITOL (89040)Indication: Encounter for long-term (current) use of medications On: 93-Qso-641406:58 Request Vitamin D Hydroxy (70842)Indication: Vitamin D deficiency, unspecified On: 31-Nvy-676582:32 Request METABOLIC PANEL, COMPREHENSIVE (71221)Indication: Seizure disorder On: 72-Dre-322058:32 Request CBC WITH MANUAL DIFF (92969)Indication: Seizure disorder On: 80-Lrn-379280:32 Request Phenytoin (Dilantin) (81352)Indication: Seizure disorder On: 82-Atv-051133:32 Request Phenytoin (Dilantin) (67652)Indication: Seizure disorder On: 92-Sez-118723:12 Request Phenytoin (Dilantin) (09462)Indication: Seizure disorder On: :05 Request Comments: 2 weeks PSA (PROSTATE SPECIFIC ANTIGEN) (V76.44)Indication: Screening for prostate cancer On: :30 Request TESTOSTERONE FREE (38159)Indication: Testicular hypofunction On: :29 Request LIPID PANEL (89419)Indication: Hypoglycemia On: :28 Request Vitamin D Hydroxy (15895)Indication: Vitamin D deficiency, unspecified On: : Request TSH (10653)Indication: Osteoporosis On: : Request CBC WITH MANUAL DIFF (70712)Indication: Seizure disorder On: : Request METABOLIC PANEL, COMPREHENSIVE (63345)Indication: Seizure disorder On: : Request Phenytoin (Dilantin) (30806)Indication: Seizure disorder On: : Request CBC WITH MANUAL DIFF (23669)Indication: Osteoporosis On: 39-Ugo-408055:09 Request METABOLIC PANEL, COMPREHENSIVE (89511)Indication: Seizure disorder On: 96-Evb-226221:09 Request TESTOSTERONE FREE (83414)Indication: Testicular hypofunction On: 01-Hvk-132676:57 Request Vitamin D Hydroxy (82487)Indication: Vitamin D deficiency, unspecified On: 07-Nyq-987039:57 Request Phenytoin (Dilantin) (41755)Indication: Seizure disorder On: 98-Gso-721135:03 Request TESTOSTERONE FREE (47237)Indication: Osteoporosis On: 91-Yke-922102:09 Request Vitamin D Hydroxy (98474)Indication: Osteoporosis On: 12-Xtk-002346:03 Request TSH (93491)Indication: Osteoporosis On: 85-Wqx-076729:03 Request UPEP (51493)Indication: Osteoporosis On: 37-Izv-484231:03 Request SPEP (05588)Indication: Osteoporosis On: 59-Val-551193:03 Request PHOSPHORUS (03252)Indication: Osteoporosis On: 93-Fah-415673:03 Request PARATHORMONE (39093)Indication: Osteoporosis On: 68-Ypb-918053:03 Request Planned Encounters Medical; [facility] Exam (Doctor) - On: 28-Jun-2018 8:00 [facility] Fast DO, Jessica A Fast DO, Jessica A Planned Procedures Flu Vaccine (Quadrivalent) On: 14-Jun-2018 Intent 47358Ji: Fast DO, Jessica A Comments: Lot #[id number]/30/2019Site-L dltd, IMDose prefilled syringegiven by: Yuly reviewed and ABN signed Fast DO, Jessica A Radiology - Lumbar SpineBy: On: 21-Mar-2018 Intent Fast DO, Jessica A Fast DO, Jessica A Cartoid DopplerBy: Fast DO, On: 21-Dec-2017 Intent Jessica A Fast DO, Jessica A ELECTROCARDIOGRAM, COMPLETE On: 20-Jun-2017 Intent (ECG) (26765)By: Hola DO, Comments: ekg showed normal sinus rhythym, normal axis, no acute st/t wave changes junctional lokesh Jessica A Fast DO, Jessica A Ultrasound - ThyroidBy: Fast On: 20-Jun-2017 Intent DO, Jessica A Fast DO, Jessica A Flu Vaccine (Quadrivalent) On: 20-Jun-2017 Intent 33558Jk: Fast DO, Jessica A Comments: Lot #[id number]-L dltd, IMDose prefilled syringegiven by:BIJAL Yusuf and ABN signed Fast DO, Jessica A Radiology - Finger(s) - On: 15-Mar-2017 Intent RightBy: Fast DO, Jessica A Comments: attn 2nd and 3 rd digit Fast DO, Jessica A Radiology - Knee - Right - On: 15-Mar-2017 Intent Weight BearingBy: Fast DO, Jessica A Fast DO, Jessica A DEXA SCAN AXIAL SKELETON On: 05-Nov-2016 Intent (14744)By: Fast DO, Jessica A Comments: january Fast DO, Jessica A Cartoid DopplerBy: Fast DO, On: 05-Nov-2016 Intent Jessica A Fast DO, Jessica A Comments: november PNEUM VAC ADLT/IMUMNOSPR, On: 05-Nov-2016 Intent SBC/INTRM (42722)By: Hola GOODSON, Comments: lot: [id number]: 18site/route: L del/IMamt: 0.5mLVIS signed when applicableMARIE Coy A Fast DO, Jessica A CT - Brain/Head (IV Contrast On: 05-May-2016 Intent Needed)By: Fast DO, Jessica A Fast DO, Jessica A Ultrasound - ThyroidBy: Fast On: 05-May-2016 Intent DO, Jessica A Fast DO, Jessica A Flu Vaccine (Quadrivalent) On: 05-May-2016 Intent 37114Pz: Fast DO, Jessica A Comments: FLUlot: [id number]:02/25/17site:rt deltoidroute:IMdose:.5mlDEMICK, MA Fast DO, Jessica A ELECTROCARDIOGRAM, COMPLETE On: 14-Apr-2016 Intent (ECG) (89190)By: Fast DO, Comments: ekg showed sinus lokesh normal axis no acute change Jessica A Fast DO, Jessica A Echo CompleteBy: Fast DO, On: 14-Apr-2016 Intent Jessica A Fast DO, Jessica A Nuclear Stress Test/Stress On: 14-Apr-2016 Intent SPECT/TreadmillBy: Fast DO, Jessica A Fast DO, Jessica A Overnight Pulse Ox(93266)By: On: 23-Oct-2015 Intent Fast DO, Jessica A Fast DO, Jessica A Six Minute Walk Assessment On: 23-Oct-2015 Intent (12775)By: Fast DO, Jessica A Fast DO, Jessica A Ultrasound - AortaBy: Fast On: 08-Aug-2015 Intent DO, Jessica A Fast DO, Jessica A Flu Vaccine (Quadrivalent) On: 08-Aug-2015 Intent 21924Xj: Fast DO, Jessica A Comments: lot [id number]: 02/26/2016site/route L shala, IMamt 0.5mlVIS and ABN signed when applicableChelsea, TAILER OFF Fast DO, Jessica A Six Minute Walk Assessment On: 08-Aug-2015 Intent (46534)By: Fast DO, Jessica A Fast DO, Jessica A Overnight Pulse OX (58934)By: On: 08-Aug-2015 Intent Fast DO, Jessica A Fast DO, Jessica A Cartoid DopplerBy: Fast DO, On: 08-Aug-2015 Intent Jessica A Fast DO, Jessica A IMMUNIZ ADMNIN, 1 VAC, On: 17-Feb-2015 Intent SNGL/COMBO ([id number])By: Fast DO, Jessica A Fast DO, Jessica A DEXA SCAN AXIAL SKELETON On: 07-Oct-2014 Intent ([id number])By: Fast DO, Jessica A Fast DO, Jessica A Flu Vaccine (Quadrivalent) On: 03-Jul-2014 Intent [id number]: Fast DO, Jessica A Comments: lot:[id number]:dose:0.5mLRoute: IMlocation: L armgiven by: lidia Fast DO, Jessica A ADMINISTRATION OF INFLUENZA On: 03-Jul-2014 Intent VIRUS VACCINE ([id number])By: Fast DO, Jessica A Fast DO, Jessica A Holter Monitor 24 hrsBy: Fast On: 15-Mar-2014 Intent DO, Jessica A Fast DO, Jessica A Cartoid DopplerBy: Fast DO, On: 15-Mar-2014 Intent Jessica A Fast DO, Jessica A IMMUNIZ ADMNIN, 1 VAC, On: 14-Sep-2013 Intent SNGL/COMBO ([id number])By: Fast DO, Jessica A Fast DO, Jessica A FLU VAC, SPLIT, >3 YEARS, On: 14-Sep-2013 Intent INTRAMUSC ([id number])By: Hola GOODSON, Comments: Lot #:[id number] date:mount given:0.5mlRoute: IMSite given: L dltdVIS and ABN signedGiven by: MYESHA Lozano Jessica A Fast DO, Jessica A Eprescribed prescriptions On: 14-Sep-2013 Intent ([id number])By: Rosario Dickson JALYN (Ankle Brachial Index) On: 17-Jan-2013 Intent ([id number])By: Fast DO, Jessica A Fast DO, Jessica A Cartoid DopplerBy: Fast DO, On: 17-Jan-2013 Intent Jessica A Fast DO, Jessica A Eprescribed prescriptions On: 17-Jan-2013 Intent ([id number])By: Rosario Dickson DXA, BONE DENSITY, AXIAL On: 20-Sep-2012 Intent SKELETON ([id number])By: Fast DO, Jessica A Fast DO, Jessiac A Eprescribed prescriptions On: 20-Sep-2012 Intent ([id number])By: Rosario Dickson Six Minute Walk Assessment On: 24-Feb-2012 Intent ([id number])By: Mast RN, Ángela Inhaler Demo ([id number])By: Fast On: 26-Jan-2012 Intent DO, Jessica A Fast DO, Jessica A Six Minute Walk Assessment On: 26-Jan-2012 Intent ([id number])By: Fast DO, Jessica A Fast DO, Jessica A Overnight Pulse OX ([id number])By: On: 26-Jan-2012 Intent Fast DO, Jessica A Fast DO, Jessica A Spirometry ([id number])By: On: 26-Jan-2012 Intent Rosario Dickson Comments: god effort and curve mod- severe obstruction TDAP VACCINE >7 IM ([id number])By: On: 21-Jul-2011 Intent Rosario Dickson Comments: Lot #[id number]-[id number] arm, IMDose prefilledgiven by:Adalgisa KOVACS - OtherBy: Fast DO, Jessica On: 21-Jul-2011 Intent A Fast DO, Jessica A Comments: right foot FLU VAC, SPLIT, >3 YEARS, On: 21-Jul-2011 Intent INTRAMUSC ([id number])By: Yessi, Comments: pharmacy Rosario PNEUM VAC ADLT/IMUMNOSPR, On: 28-Jul-2010 Intent SBC/INTRM ([id number])By: Hola GOODSON, Comments: Lot #[id number]-[id number] armDose0.5mlgiven by: Jessica A Fast DO, Jessica A IMMUNIZ ADMNIN, 1 VAC, On: 28-Jul-2010 Intent SNGL/COMBO ([id number])By: Fast DO, Jessica A Fast DO, Jessica A Overnight Pulse Ox([id number])By: On: 22-Jul-2010 Intent Ángela Patel RN Six Minute Walk Assessment On: 22-Jul-2010 Intent ([id number])By: Ángela Patel RN Overnight Pulse OX ([id number])By: On: 15-Jun-2010 Intent Fast DO, Jessica A Fast DO, Jessica A Six Minute Walk Assessment On: 15-Jun-2010 Intent ([id number])By: Fast DO, Jessica A Fast DO, Jessica A DXA, BONE DENSITY, AXIAL On: 15-Jun-2010 Intent SKELETON ([id number])By: Fast DO, Jessica A Fast DO, Jessica A Radiology - Chest- PA and On: 15-Jun-2010 Intent LatBy: Fast DO, Jessica A Fast DO, Jessica A Spirometry ([id number])By: Hola On: 15-Jun-2010 Intent DO, Jessica A Fast DO, Jessica A Comments: good effort and curve mod obst EKG ([id number])By: Hola DO, On: 15-Jun-2010 Intent Jessica A Fast DO, Jessica A Comments: ekg showed normal sinus rhythym, near rightl axis, no acute st/t wave changes Instructions Name Dates Details Hyperlipidemia : DISCONTINUED - LIPID PANEL (26184) Indication: Hyperlipidemia Elevated hemoglobin A1c : DISCONTINUED - HGB A1C (00646) Indication: Elevated hemoglobin A1c Low back pain [...] : Patient Instructions Indication: Seizure disorder Encounters Office Visit On: 14-Jun-2018 9:05 Encounter Reason: [...] medic al issues: he was golfing in [employer] long car ride then low back radiating [...] at it to know what - no angelae End: 01-Apr-2017 10:38 Encounter Diagnosis: Arthralgia of [...] Note for Physical exam: [facility]- dizziness is in general better [...] or doing activiity- no cp -- saw [facility] and told close to oxygen and so [...] chronic medical issues: on new inhaler from [facility]- is helping not sure ins urance going [...] patient does not have durable power of regulatory attorney or living will. The patient has [...] chronic medical is sues: he is seeing sibilia- he has sleep apnea- and has to [...] 15-Jun-2010 15:04 Encounter Reason: new patient male angelo - Last seen more than 1 year [...] (years ago). Note for new patient male angelo: last seizure 1991- diagnosed with epilepsy age 19- grandmal seizures- was on fosamax- and gave him terrible reflux no bone denstiy for several years- interested in quitting smokingEncounter Diagnosis: COPD (496.), Hypoglycemia (251.2), Constipation(564.00), Osteoporosis (733.00), Seizure disorder, SOB (786.05), Peyronie's disease (607.85) [facility] Payers MedicareNEW [facility] [employer]; a guarantor
== END ==
PROVIDERS: Family Provider Internal Medicine; PCP Internal Medicine; Referring Provider Podiatrist; Visit Provider Podiatrist
DX: M79.9 Soft tissue disorder, unspecified (principal)
CPT/HCPCS: 73718

== ENCOUNTER → 2018-08-11 12:35 | Outpatient (CLI) | payer SELFPAY ==
[2018-07-05 14:01] VITALS: BMI 26.2
--- NOTE | 2018-08-11 12:45 | CT_ITS ---
STUDY: CT CHEST WITHOUT CONTRAST REASON FOR EXAM: Male, 67 years old. Calcium scoring examination. This is an over read examination. RADIATION DOSAGE (If Supplied By Facility): CTDIvol = ( 12.19 ) mGy, DLP = ( 195.04 ) mGycm TECHNIQUE: Transaxial imaging was performed without the administration of intravenous contrast material. Individualized dose optimization techniques were used for this CT. COMPARISON: Comparison is made with prior examination dated February 16, 2018. FINDINGS: Hyperinflation. Minimal increased markings at the lung bases suggestive of scarring. There is no demonstrated pleural abnormality. There are calcifications of the coronary arteries. Minimal degree of pericardial thickening. There are multiple small lymph nodes within the mediastinum, which are normal in size and morphology most compatible with reactive lymph hyperplasia. Normal hilar regions. Normal unenhanced pulmonary arteries. There is atherosclerotic calcification of the aortic arch . There are multi-level degenerative changes of the thoracic spine. Multiple hepatic cysts. CT/Limited Chest CT w/CCTA IMPRESSION: No acute abnormality is seen. Electronically Signed: Charbel Rivera MD at 12:43 EST Tel [phone], Service support ,
[2018-08-11 12:52] VITALS: BP 119/67; PULSE 52; RESP 14; O2SAT 97; BMI 26.4
--- NOTE | 2018-08-11 16:21 | CA.SCORE ---
Calcium Scoring Date of Study:: 08/11/18 Coronary Calcium Scoring: Patient had a total coronary calcium Agatston score of 1752 which represents greater than 90 percentile for coronary calcium. Conclusion: Patient is total percentile ranking is greater than 90%. In a published study, greater than 90% of people of the same gender and similar age had the same or lower scores. Results: Results: Patient's total Agatston score was 1752. Of this 1298 was located in the right coronary artery, and 453 was located in the LAD. No calcium was noted in the left circumflex artery. There is minimal calcium noted in the left main. Impression: Impression: Patient is ranked in the greater than 90 percentile ranking for similar gender and similar age. The majority of the calcium was located in the right coronary artery, and left anterior descending artery. There was no calcium noted in the left circumflex artery and minimal calcium noted in the left main. The total calcium score of 1752 is above the 90th percentile for men between the ages of 65 and 69. This means at 98% of the population has lower calcium score and 1% of the population is a higher calcium score than this patient. Score of over 400 suggest extensive plaque burden and a high likelihood of at least one significant coronary artery stenosis of greater than 50% compromise diameter. Recommend clinical correlation or alternative mode of testing if coronary occlusive disease is strongly suspected. Patient tolerated procedure well.
--- OUTSIDE RECORDS SUMMARY | 2018-09-27 07:42 | XMS RPT_ITS ---
:1950 Author Organization OHIP Support Name Relationship Address Phone UGO PARKSN Unavailable [address] + [place] [address] R Unavailable Unavailable Unavailable PARKS, MACY Unavailable [address] + [place] [address] R Unavailable Unavailable Unavailable PARKS, MACY Unavailable [address] + [place] [address] R Unavailable Unavailable Unavailable PARKS, MACY Unavailable [address] + [place] [address] R Unavailable Unavailable Unavailable PARKS, MACY Unavailable [address] + [place] [address] R Unavailable Unavailable Unavailable PARKS, MACY Unavailable [address] + [place] [address] R Unavailable Unavailable Unavailable PARKS, MACY Unavailable [address] + [place] [address] R Unavailable Unavailable Unavailable PARKS, MACY Unavailable [address] + [place] [address] R Unavailable Unavailable Unavailable PARKS, MACY Unavailable [address] + [place] [address] R Unavailable Unavailable Unavailable PARKS, MACY Unavailable [address] + [place] [address] R Unavailable Unavailable Unavailable PARKS, MACY Unavailable [address] + [place] [address] R Unavailable Unavailable Unavailable PARKS, MACY Unavailable [address] + [place] [address] R Unavailable Unavailable Unavailable PARKS, MACY Unavailable [address] + [place] [address] R Unavailable Unavailable Unavailable PARKS, MACY Unavailable [address] + [place] [address] R Unavailable Unavailable Unavailable Care Team Providers Name Role Phone Fast DO, Jessica A Attending Unavailable Fast DO, Jessica A Referring Unavailable Fast DO, Jessica A Consulting Unavailable Manuel Clinton Attending Unavailable Fast, Jessica Referring Unavailable Fast, Jessica Primary Care Unavailable Fast, Jessica Consulting Unavailable Chuy, Louisa Attending Unavailable Russel, Pravin Attending Unavailable [...] 09/06/2018 Unknown E78.5 - Russel, Pravin Active [place] Hyperlipidemia, Community unspecified / Hospital E78.5(ICD-10) Repository 09/06/2018 Unknown F17.200 - Nicotine Russel, Pravin Active [place] dependence, Community unspecified, Hospital uncomplicated / Repository F17.200(ICD-10) 07/17/2018 Unknown M81.0 - Age-related Fast, Jessica Active [place] osteoporosis Community without current Hospital pathological Repository fracture / M81.0(ICD-10) 05/23/2018 Unknown M54.16 - Fast, Jessica Active [place] Radiculopathy, Community lumbar region / Hospital M54.16(ICD-10) Repository 02/16/2018 Unknown R91.1 - Solitary Carlos Bowers Active [place] pulmonary nodule / Community R91.1(ICD-10) Hospital Repository PROCEDURES PROCEDURES No Procedure Records FoundRESULTS RESULTS ACT ACTIVATED CLOTTING Collected: 09/15/2018 Status: F Source: [place] TIME 9:24 AM [facility] [place] TYPE CODE TESTS RESULT OUT OF RANGE REFERENCE UNITS LAB L9100.0100 74-137 sec High ACTk CLOT 241 TIME Performed By: #### L9100.0100 #### [facility] Point of Care [address] [place] [address] CHEST PA AND LATERAL Observed: 09/07/2018 Status: F Source: [place] 10:53 AM [facility] [place] [facility] Imaging Services [address] [place] [address] Chest PA and Lateral MR#: [id number] Acct: [id number] Name: CHELI NEUMANN Rep #: [id number] : 1950 M 67 From: Phil Can MD PCP: Jessica Limon DO Status: PRE SDC Study: Chest PA and Lateral Date of Exam: 09/07/18 Exam# [id number] Ordering Dr: Pravin Goode MD STUDY: X-RAY [...] CC: Pravin Goode MD; Jessica Limon DO Cylinder Handler: Signed BASIC METABOLIC Collected: 09/06/2018 Status: F Source: [place] PROFILE (BMP) 3:41 PM [facility] [place] TYPE CODE TESTS RESULT OUT OF [...] GAP 7 Performed By: #### L500.2500 #### [facility] [address] [place], [address] CBC W/DIFF, AUTOMATED Collected: 09/06/2018 Status: F Source: [place] 3:41 PM [facility] [place] TYPE CODE TESTS RESULT OUT OF [...] Lymph 2.78 Performed By: #### L100.0100 #### [facility] [address] [place], [address] CARDIOLOGY VISIT Observed: 09/06/2018 Status: F Source: [place] REPORT 3:00 PM [facility] [place] [address] [place], [place] [address] OFFICE VISIT Date of Service: 09/06/18 MR#: [id number] Acct: [id number] Name: CHELI NEUMANN Rep #: [id number] : 1950 Provider: Pravin Goode MD Age/Sex: 67/M Location: [facility] Status: Signed [facility] Chief Complaint: Initial visit Details: CHELI NEUMANN, is a 67 M who presents [...] PO QHS 07/05/18 [History Confirmed 09/06/18] Tiotropium Lovelady [Spiriva] 18 mcg IH DAILY 07/05/18 [History Confirmed 09/06/18] albuterol sulfate HFA 90 mcg/actuation aerosol inhaler 1 puff INHALATION Q6H PRN 08/28/18 [History Confirmed 09/06/18] calcium carb 300 mg-D3 800 unit-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 0.5 mg-sergey-Zn tablet 2 tab PO DAILY 08/28/18 [History Confirmed 09/06/18] denosumab 60 mg/mL subcutaneous syringe 60 mg SC [id number] 08/28/18 [History Confirmed 09/06/18] aspirin 81 mg tablet,delayed release 81 mg PO QDAY #90 tab 09/06/18 [Rx Confirmed 09/06/18] cholecalciferol (vitamin D3) 1,000 unit/drop oral drops unit PO ml 09/06/18 [History Confirmed 09/06/18] clopidogrel 75 mg tablet 75 mg PO DAILY #30 tab 09/06/18 [Rx Confirmed 09/06/18] phenobarbital 16.2 mg tablet 64.8 mg PO DAILY 60 Days #240 tab 09/06/18 [History Confirmed 09/06/18] [facility] Medical History Hyperlipidemia (Chronic) Anemia (Chronic) COPD [...] Other Medications 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) Coding Level of Care Code Off vis,new,level [...] Observed: 09/06/2018 Status: F Source: [place] BY [facility] 1:58 PM [facility] [address] [place] [address] 12 Lead EKG performed by [facility] 09/06/18 1232 MR#: [id number] Acct: [id number] Name: THIENCADE Rep #: [id number] : 1950 67 From: Pravin Goode MD Attending Dr: Pravin Goode MD Status: DEP AMB Ordering Dr: Pravin Goode MD Date: 09/06/18 Location: [facility] Sex: M C Admitted: BMS/12 Lead EKG performed by BMS ECG Report Interpretation Sinus Bradycardia Low voltage in limb leads. -RSR(V1) -nondiagnostic. ABNORMAL Electronically signed on 09/19/2018 at 13:15 by Pravin Goodewood Software Version 8610 09/19/18 1319 Date Pravin Goode MD CC: Jessica Limon DO Date Dictated: 09/06/18 1232 Date Transcribed: 09/06/18 123 Cylinder Handler: CO Signed LIMITED CHEST CT Observed: 08/11/2018 Status: F Source: [place] W/CCTA 12:45 PM [facility] [place] [facility] Imaging Services [address] [place] [address] w/CCTA MR#: [id number] Acct: [id number] Name: CHELI NEUMANN Rep #: [id number] : 1950 M 67 From: Charbel Rivera MD PCP: Jessica Limon DO Status: REG CLI Study: Limited Chest CT w/CCTA Date of Exam: 08/11/18 Exam# [id number] Ordering Dr: Jessica Limon DO STUDY: CT [...] Charbel Rivera MD at 12:43 EST Tel [phone], Service support , CC: Jessica Limon DO Cylinder Handler: Signed LOWER EXT/NO JT/W/O Observed: 08/08/2018 Status: F Source: [place] 9:42 AM [facility] [place] [facility] Imaging Services [address] [place] [address] Lower Ext/No Jt/w/o MR#: [id number] Acct: [id number] Name: CHELI NEUMANN Rep #: [id number] : 1950 67 From: Demarco Ellsworth MD PCP: Jessica Limon DO Status: REG CLI Study: Lower Ext/No Jt/w/o Date of Exam: 08/08/18 Exam# [id number] Ordering Dr: Jeremiah Banegas DPSaul STUDY: MRI [...] CC: Jessica Limon DO; Jeremiah Banegas DPM Cylinder Handler: Signed PT D/C SUMMARY (1) Observed: 05/23/2018 Status: F Source: [place] 1:03 PM [facility] [place] [address] [place] [address]. [address] [place] [address] Fax REHABILITATION SERVICES DISCHARGE SUMMARY MR#: [id number] Acct: [id number] Name: CHELI NEUMANN Rep #: [id number] : 1950 67 From: Rose Colunga PT, [...] PAIN. DOING HEP BUT HASN'T GONE TO [facility] BUT PLANS TO WHEN GOLFING SEASON IS OVER. PATIENT STATES HE DOESN'T THINK HE HAS TAKEN ANY ADVIL FOR ABOUT A MONTH. DRIVING TO [place] FOR GOLF OUTING FOR A WEEK 36 [...] please feel free to call me at [phone]. Thank you for the referral of this patient. Sincerely, Rose Colunga <Electronically signed by Rose Colunga PT, Cert. MDT> 05/23/18 1303 CC: Jessica Limon DO ANDREA Signed RE-EVALUATION - PT (1) Observed: 04/18/2018 Status: F Source: [place] 2:36 PM [facility] [facility] [address] [place] [address]. [address] [place], [place] [address] Fax REEVALUATION / MEDICARE RECERTIFICATION PHYSICAL THERAPY MR#: [id number] Acct: [id number] Name: CHELI NEUMANN Rep #: [id number] : 1950 67 From: Rose Colunga PT, [...] REPORTS HE IS A MEMBER AT THE [employer]. STILL FEELING A LITTLE BIT OF TIGHTNESS [...] do not hesitate to contact me at [phone] by phone or if you have questions or concerns regarding this new plan of care! Sincerely, Rose Colunga <Electronically signed by Rose Colunga PT, Cert. MDT> 04/18/18 4236 CC: Jessica Limon DO ANDREA Signed For Medicare only, by signing this I certify the plan of care. Physicians Signature Date INITAL EVALUATION (1) Observed: 03/28/2018 Status: F Source: [place] - PT 2:11 PM [facility] [facility] [address] [place] [address] Fax REHABILITATION SERVICES INITIAL EVALUATION MR#: [id number] Acct: [id number] Name: CHELI NEUMANN Rep #: [id number] : 1950 67 From: Rose Colunga PT, [...] of: NO APPARENT REASON BUT DROVE TO [place] THE FOR A GOLF CLASS. THE WEEK [...] to be FAXED BACK to us at [phone] for Medicare purposes. Please let me know if there are questions or concerns regarding this plan of care. Physician Signature: Date: <Electronically signed by Rose Colunga PT, Cert. MDT> 03/28/18 1411 CC: Jessica Limon DO ANDREA Signed For Medicare only, by signing this I certify the plan of care. Physicians Signature Date CAROTID DUPLEX Observed: 03/24/2018 Status: F Source: [place] ULTRASOUND 7:29 AM [facility] [place] [facility] Cardiovascular Services [address] [place] [address] Carotid Duplex Ultrasound 03/20/18 0956 MR#: [id number] Acct: [id number] Name: CHELI NEUMANN Rep #: [id number] : 1950 67 From: David Mo MD Attending Dr: Jessica Limon DO Status: REG CLI Ordering Dr: Jessica Limon DO Date: 03/20/18 Location: [facility] Sex: M C Admitted: Reason For Study: [...] the left vertebral artery. Procedure Carotid Duplex 08351. Exam performed in department. Interpretation Summary No significant atherosclerotic plaque or stenosis noted in the right internal carotid artery. Mild (<50%) stenosis left extracranial internal carotid. Flow within the vertebral arteries is antegrade bilaterally. Ordering Physician: Jessica Limon Referring Physician: Jessica Limon V Performed By: Bethany Brra RVT 03/24/1829 Date David Mo MD CC: Jessica Limon DO Date Dictated: 03/20/1856 Date Transcribed: 03/24/18728 Cylinder Handler: Signed L/S SPINE MIN 4 Observed: 03/21/2018 Status: F Source: [place] VIEWS 12:11 PM [facility] [place] [facility] Imaging Services [address] [place] [address] L/S Spine Min 4 Views MR#: [id number] Acct: [id number] Name: CHELI NEUMANN Rep #: [id number] : 1950 M 67 From: Phil Lazcano MD PCP: Jessica Limon DO Status: REG CLI Study: L/S Spine Min 4 Views Date of Exam: 03/21/18 Exam# [id number] Ordering Dr: Jessica Limon DO STUDY: X-RAY [...] Service support , CC: Jessica Limon DO Cylinder Handler: Signed CHEST WITHOUT Observed: 02/16/2018 Status: F Source: [place] CONTRAST 1:09 PM [facility] [place] [facility] Imaging Services [address] [place] [address] Chest without Contrast MR#: [id number] Acct: [id number] Name: CHELI NEUMANN Rep #: [id number] : 1950 67 From: Kali Diaz MD PCP: Jessica Limon DO Status: REG CLI Study: Chest without Contrast Date of Exam: 02/16/18 Exam# [id number] Ordering Dr: Carlos Bowers MD STUDY: CT [...] CC: Jessica Limon DO; Carlos Bowers MD Cylinder Handler: Signed LOW DOSE CT LUNG Observed: 11/16/2017 Status: F Source: [place] SCREENING 6:56 PM [facility] [place] [facility] Imaging Services [address] [place] [address] Lung Screening MR#: [id number] Acct: [id number] Name: CHELI NEUMANN Rep #: [id number] : 1950 M 66 From: Charbel Rivera MD PCP: Jessica Limon DO Status: REG CLI Study: Low Dose CT Lung Screening Date of Exam: 11/16/17 Exam# [id number] Ordering Dr: Carlos Bowers MD STUDY: LOW [...] Charbel Rivera MD at 10:24 EDT Tel [phone], Service support , CC: Jessica Limon DO; Carlos Bowers MD Cylinder Handler: Signed ALLERGIES ALLERGIES DATE TYPE / CODE NAME / CODE REACTION SEVERITY SOURCE 09/06/2018 Drug No Known Unknown [place] [facility] Allergy/4160 Allergies/F00 Hospital 67333(SNOMED 4182055(RXNOR Repository CT) M) ENCOUNTERS ENCOUNTERS ADMIT/DISCHARGE ACCOUNT ADMITTING ENCOUNTER LOCATION SOURCE NUMBER CLASS 09/15/2018 [id number] Ambulatory BMSBuilding:B [place] 8 [facility] Repository 09/15/2018/ [id number] Ambulatory [place] 9 9 [facility] ing:CLSP Repository 09/06/2018 [id number] [place]ulatory [place] 4 [facility] ing:LAB Repository 09/06/2018/ [id number] Ambulatory BMSBuilding:B [place] 9 4 [facility] Repository 08/28/2018 [id number] Ambulatory BMSBuilding:B [place] 8 [facility] Repository 08/14/2018 [id number] Ambulatory OHIP Practices Repository 08/11/2018 [id number] Ambulatory BMSBuilding:B [place] 8 [facility] Repository 08/11/2018 [id number] Ambulatory [place] 7 [facility] ing:CT Repository 08/08/2018 [id number] Ambulatory [place] 7 [facility] ing:MRI Repository 07/05/2018 [id number] Ambulatory [place] 3 [facility] ing:MEDOUTP Repository 05/23/2018/ [id number] Ambulatory [place] 8 2 [facility] Repository 03/21/2018 [id number] Ambulatory [place] 1 [facility] ing:HPRAD Repository 03/20/2018 [id number] Ambulatory [place] 3 [facility] ing:[facility] Repository 02/16/2018 [id number] Ambulatory [place] 6 [facility] ing:CT Repository 11/16/2017 [id number] Ambulatory [place] 7 [facility] ing:CT Repository PAYERS PAYERS ENCOUNTER GUARANTOR PAYER SUBSCRIBER SOURCE 09/15/2018 CHELI Hernandez Primary CHELI Hernandez [place] [id number] Insurance:MEDICARE BECKETTDOB: Community [address] A [facility] [id number] Number: Repository [address]Bsr: 330 [id number] [phone] () Date:2018-09-15 09/15/2018 Secondary CADE [place] Insurance: LIFE BECKETTDOB: [facility] [place]. [place].Policy [id number] Hospital Number: Repository [id number] Date:1469-70-82[address] [place] [address]SC: 09/15/2018 Tertiary NOT GIVENUNK [place] Insurance:SELF PAY [facility] Number: Effective Repository Date:2018-09-15 09/15/2018 CADE Primary CADE [place] [id number] Insurance:MEDICARE BECKETTDOB: Community [address] PART A [facility] [id number] [place] Number: Repository [address]Zmj: 330 [id number] [phone] () Date:2018-09-06 09/15/2018 Secondary CADE [place] Insurance: LIFE BECKETTDOB: [facility] [place]. [place].Policy [id number] Hospital Number: Repository [id number] Date:6665-91-63[address] [address]ABV, [place] [address]ET: 09/15/2018 Tertiary NOT GIVENUNK [place] Insurance:SELF PAY [facility] Number: Effective Repository Date:2018-09-06 09/06/2018 CADE Primary CADE [place] [id number] Insurance:MEDICARE BECKETTDOB: Community [address] PART A [facility] [id number], [place] Number: Repository [address]Sgw: 330 [id number] [phone] () Date:2018-09-06 09/06/2018 Secondary CADE [place] Insurance: LIFE BECKETTDOB: [facility] [place]. [place].Policy [id number] Hospital Number: Repository [id number] Date:2322-18-58WD [address] [address]ZORXS, [place] [address]GA: 09/06/2018 Tertiary NOT GIVENUNK [place] Insurance:SELF PAY [facility] Number: Effective Repository Date:2018-09-06 09/06/2018 CADE Primary CADE [place] [id number] Insurance:MEDICARE BECKETTDOB: Community [address] PART A [facility] [id number] [place] Number: Repository [address]Iez: 330 [id number] [phone] () Date:2018-08-16 09/06/2018 Secondary CADE [place] Insurance: LIFE BECKETTDOB: Community [place]. [place].Policy [id number] Hospital Number: Repository [id number] Date:3809-19-41HE [address] [address], [place] [address]PW: 09/06/2018 Tertiary NOT GIVENUNK [place] Insurance:SELF PAY [facility] Number: Effective Repository Date:2018-08-23 08/28/2018 CADE Primary CADE [place] [id number] Insurance:MEDICARE BECKETTDOB: Community [address] PART A [facility] [id number] [place] Number: Repository [address]Pau: 330 [id number] [phone] () Date:2018-08-28 08/28/2018 Secondary CADE [place] Insurance: LIFE BECKETTDOB: Community 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 HospitalPolicy Number: Martina [id number] [facility], [place] Date:7107-39-23Sesq [address]Erm: Name:Dariel, ~(3 [place] [phone]: [phone] 08/14/2018 Tertiary CHELI Hernandez OHIP Practices Insurance:Gunlock MORIAHSHYANNDOB: Repository [facility] [id number] Number: Martina [id number] [facility], [place] Date:2009-08-29 [address]Txa: 4776-01-05Hgig ~(3 Name:[facility] [address] () [address], [place] [address]VW: 08/11/2018 CHELI Hernandez Primary Insurance:[facility] CHELI Hernandez [place] [id number] PACKAGE PLANPolicy BECKETTDOB: [facility] Number: [id number], [place] [id number] Repository [address]Nxr: (330) Date:2018-08-01-9169 (HP) 08/11/2018 Secondary NOT GIVENUNK [place] Insurance:SELF PAY [facility] Number: Effective Repository Date:2018-08-11 08/11/2018 CHELI Hernandez Primary Insurance:[facility] CHELI Hernandez [place] [id number] PACKAGE PLANPolicy BECKETTDOB: [facility] [address] Number: [id number], [place] [id number] Repository [address]Lla: (330) Date:2018-08-0193 () 08/11/2018 Secondary NOT GIVENUNK [place] Insurance:SELF PAY Community [facility] Number: Effective Repository Date:2018-08-01 08/08/2018 CADE Primary CHELI Hernandez [place] [id number] Insurance:MEDICARE BECKETTDOB: Community MEADOW PART A [facility] [id number] Number: Repository [address]Hbf: [phone] [id number] () Date:2018-07-28 08/08/2018 Secondary CADE [place] Insurance: LIFE BECKETTDOB: Community [place]. [place].Policy [id number] Hospital Number: Repository [id number] Date:0715-90-60SB [address] [address]OYQRMEYQI, [place] [address]PW: 08/08/2018 Tertiary NOT GIVENUNK [place] Insurance:SELF PAY [facility] Number: Effective Repository Date:2018-07-28 07/05/2018 CADE Primary CADE [place] [id number] Insurance:MEDICARE BECKETTDOB: Community MEADOW PART A [facility] [id number] [facility] Medical [facility] [place] Number: Repository [address]Hhm: 330 [id number] () Date:2018-07-03 07/05/2018 Secondary CADE [place] Insurance: LIFE BECKETTDOB: Community [place]. [place].Policy [id number] Hospital Number: Repository [id number] Date:6267-37-93AQ [address] [address]QFRPGTJKQ, [place] [address]KU: 07/05/2018 Tertiary NOT GIVENUNK [place] Insurance:SELF PAY [facility] Number: Effective Repository Date:2018-07-03 05/23/2018 CADE Primary CADE [place] [id number] Insurance:MEDICARE BECKETTDOB: Community MEADOW PART A [facility] [id number] Valley Medical Center [place] Number: Repository [address]Eti: 330 [id number] [phone] () Date:2014-10-27 05/23/2018 Secondary CADE [place] Insurance: LIFE BECKETTDOB: Community [place]. [place].Policy [id number] Hospital Number: Repository [id number] Date:4657-21-19HA [address] [address]JCPUNNQIF, [place] [address]VS: 05/23/2018 Tertiary NOT GIVENUNK [place] Insurance:SELF PAY Community [facility] Number: Effective Repository Date:2018-03-21 03/21/2018 CADE Primary CHELI Hernandez [place] [id number] Insurance:MEDICARE BECKETTDOB: Community MEADOW PART A [facility] [id number], [place] Number: Repository [address]Lgy: [phone] [id number] [phone] () Date:2018-03-21 03/21/2018 Secondary CEHLI Hernandez [place] Insurance: LIFE BECKETTDOB: Community [place]. [place].Policy [id number] Hospital Number: Repository [id number] Date:1658-25-32YT [address] [address]VIFRTOZPN, [place] [address]SL: 03/21/2018 Tertiary NOT GIVENUNK [place] Insurance:SELF PAY [facility] Number: Effective Repository Date:2018-03-21 03/20/2018 CADE Primary CHELI Hernandez [place] [id number] Insurance:MEDICARE BECKETTDOB: Community MEADOW PART A [facility] [id number], [place] Number: Repository [address]Aal: [phone] [id number] [phone] () Date:2018-03-13 03/20/2018 Secondary CHELI Hernandez [place] Insurance: LIFE BECKETTDOB: Community [place]. [place].Policy [id number] Hospital Number: Repository [id number] Date:8870-32-12VX [address] [address]CNY[place]TI [place] [address]ZN: 03/20/2018 Tertiary NOT GIVENUNK [place] Insurance:SELF PAY Community [facility] Number: Effective Repository Date:2018-03-13 02/16/2018 CADE Primary CHELI Hernandez [place] [id number] Insurance:MEDICARE BECKETTDOB: Community MEADOW PART A [facility] [id number], [place] Number: Repository [address]Guo: [phone]) [id number] [phone] () Date:2018-01-09 02/16/2018 Secondary CADE [place] Insurance: LIFE BECKETTDOB: Community [place]. [place].Policy [id number] Hospital Number: Repository [id number] Date:0213-34-92AE [address] [address]EDIWDGLMK, [place] [address]YA: 02/16/2018 Tertiary NOT GIVENUNK Crow Insurance:SELF PAY [facility] Effective Repository Date:2018-01-09 11/16/2017 CADE Primary CADE [place] [id number] Insurance:MEDICARE BECKETTDOB: [facility] MEADOW PART A [facility] [id number] Number: Repository [id number]: [phone] [id number] [phone] () Date:2017-11-14 11/16/2017 Secondary CADE [place] Insurance: LIFE BECKETTDOB: Community [place]Policy [id number] Hospital Number: Repository [id number] Date:2996-12-14[address] [id number] [place] [id number]: 11/16/2017 Tertiary NOT GIVENUNK [place] Insurance:SELF PAY [facility] Number: Effective Repository Date:2017-11-14
== END ==
PROVIDERS: Family Provider Internal Medicine; PCP Internal Medicine; Referring Provider Internal Medicine; Visit Provider Internal Medicine
DX: E78.5 Hyperlipidemia, unspecified (principal)
CPT/HCPCS: 75571; 76380

== ENCOUNTER → 2018-09-06 15:36 | Outpatient (CLI) | payer MEDICARE, OTHER, SELFPAY ==
[2018-09-06 12:31] VITALS: BMI 27.3
[2018-09-06 17:32] LABS: Anion Gap 7 (5-15); BUN 16 mg/dL (7-18); BUN/Creat Ratio 17.1 RATIO (10-20); Calcium,Total 8.9 mg/dL (8.5-10.1); Chloride 104 mmol/L (98-107); Creatinine, Serum 0.94 mg/dL (0.70-1.30); EST Glomerular Filtration Rate 85 mL/min (>60); Est Glom Filt Rate - Afr Amer 103 mL/min (>60); Glucose 77 mg/dL (74-106); Sodium Level 139 mmol/L (136-145)
[2018-09-06 17:45] LABS: Absolute Lymphocyte Count 2.78 X10^3/ul (0.83-4.51); Absolute Neutrophil Count 3.7 X10^3/uL (2.0-7.7); Basophil# 0.05 X10^3/uL; Basophil% 0.7 % (0-1); Eosinophil# 0.24 X10^3/uL; Eosinophils% 3.2 % (0-5); Hematocrit 40.7 % (40-54); Hemoglobin 13.1 g/dl (13.0-16.5); Lymphocyte # 2.78 X10^3/ul (4.0); Lymphocyte % 37.5 % (19-41); Mean Corp Hgb Conc 32.2 g/gl (32-36); Mean Corpuscular Hgb 30.9 pg (27.0-32.0); Mean Platelet Vol. 10.2 fl (6.2-12.0); Monocyte# 0.67 X10^3/uL; Neutrophil # 3.67 X10^3/uL (2.7-7.7); Neutrophil % 49.5 % (47-70); Platelet Count 258 K/mm3 (150-450); RBC Distribution Width SD 45.2 fl (35.1-43.9); Red Blood Count 4.24 M/mm3 (4.6-6.2); White Blood Count 7.4 K/mm3 (4.4-11.0)
[2018-09-06 18:01] LABS: POSITIVE COUNT NO; POSITIVE DIFFERENTIAL NO; POSITIVE MORPHOLOGY NO
== END ==
PROVIDERS: Internal Medicine Cardiovascular Disease; Family Provider Internal Medicine; PCP Internal Medicine; Referring Provider Internal Medicine Cardiovascular Disease; Visit Provider Internal Medicine Cardiovascular Disease
DX: R93.1 Abnormal findings on diagnostic imaging of heart and coronary circulation (principal)
CPT/HCPCS: 36415; 80048; 85025

== ENCOUNTER 2018-09-15 07:40 | Day surgery (SDC) | payer MEDICARE, OTHER, SELFPAY ==
[2018-09-06 12:31] VITALS: BMI 27.3
--- NOTE | 2018-09-07 10:54 | RAD_ITS ---
STUDY: X-RAY CHEST REASON FOR EXAM: Male, 67 years old. Worsening chest pain TECHNIQUE: PA and lateral views of the chest. COMPARISON: 06/16/2010 FINDINGS: There are interstitial fibrotic changes of the lungs. There is no demonstrated pleural abnormality. Normal size heart. Normal mediastinum and ruiz. Normal visualized pulmonary arteries. Normal visualized aortic arch and descending thoracic aorta. Normal visualized thoracic spine. Normal visualized ribs, clavicles, and shoulders. There is no demonstrated abnormality of the visualized soft tissue structures of the upper abdomen. RAD/Chest PA and Lateral IMPRESSION: Chronic interstitial changes, no superimposed acute pulmonary process Electronically Signed: Atul Can MD at 11:36 EST , Service support ,
[2018-09-14 07:47] VITALS: BMI 27.3
--- NOTE | 2018-09-15 09:05 | CL.D_ITS ---
Patient Name: CHELI NEUAMNN Study Date: 09/15/2018 Performing: Pravin Goode MD Ht: 72.04 inches 183 cm : 1950 Wt: 202.83 lbs 92 kg Age: 67 Gender: male BSA: 2.14 PROCEDURE(S) PERFORMED [id number]/LV [id number], CORONARY OR GRAFT, INITIAL VESSEL CLINICAL PROFILE AND INDICATIONS Indications: Suspected CAD Heart Failure: None Stress/Imaging Coronary Calcium Score: Yes Calcium Score: 2800Calcium Score: 2800 CAD Presentations: No Sxs, no angina. CONCLUSIONS Diffuse coronary calcification involving the right coronary artery as well as the mid left anterior d escending artery. Moderately severe mid left anterior descending artery lesion RECOMMENDATIONS Staged for FFR DESCRIPTION OF PROCEDURE The patient arrived to the procedure lab. The risks and benefits of the procedure as well as a full d escription of our services here and current unavailability of surgical backup were fully explained to the patient and/or their significant other prior to the catheterization. The Timeout was completed, verifying the correct patient and procedure. The patient's procedural site was prepped and draped in the usual fashion. Local anesthetic was given subcutaneously to right radial region with Lidocaine 2% . Using a modified Seldinger technique, arterial access was obtained via the right radial artery, a 6 Fr sheath was inserted. Left Coronary Artery selective angiography was then performed in multiple vi ews using a 5 Fr. 4.0 [place] catheter. Right Coronary Artery selective angiography was then performed in multiple views using a 5 Fr. 4.0 [place] catheter. Left Ventriculography was performed in [place] projec tion using a 5 Fr. [place] catheter. LV to AO pullback pressures were then recorded. CORONARY ANGIOGRAPHY DOMINANCE: Right Dominant LEFT HEART ASSESSMENT Left Ventricular Ejection Fraction: by LV Gram 60 % Normal LV wall motion Normal Left Ventricular systolic function LEFT MAIN: Angiographically normal LEFT ANTERIOR DECENDING ARTERY: MID LAD: Moderate calcification, 60-70 % Stenosis RIGHT CORONARY ARTERY: Moderate calcification Mild luminal irregularities less than 30% COMPLICATIONS PROCEDURE MEDICATIONS Fentanyl 50 mcg IV Versed 1 mg IV Versed 1 mg IV Oxygen: 2 L/min via nasal cannula Heparin diluted in 23cc Heparinized saline. Patient given 4cc IA of this solution. 09/15/2018 08:37:2 5 Verapamil 2.5mg, Ntg 100mcgs, 2000 units of Heparin diluted in 23cc Heparinized saline. Patient give n 4cc IA of this solution. 09/15/2018 08:37:25 IV Bolus: .9 NaCl ml total 09/15/2018 08:39:01 SUMMARY OF HEMODYNAMIC DATA Time AIR REST ECG 08:01:32 AO 91/52 (70) SA 08:42:54 LV 86/-2, 2 08:48:42 LV 92/-3, 2 08:48:49 LV 106/-1, 6 08:50:02 LV 105/-1, 9 08:50:08 LVp 100/0, 9 08:50:12 AOp 93/51 (69) 08:50:17 AO 112/48 (71) 08:55:42 Signed By Pravin Goode MD On 09/15/2018 09:04:20 Pravin Goode MD
--- NOTE | 2018-09-15 09:33 | CL.I_ITS ---
Patient Name: CHELI NEUMANN Study Date: 09/15/2018 Performing: Sebastien Vann MD Ht: 72.04 inches 183 cm : 1950 Wt: 202.83 lbs 92 kg Age: 67 Gender: male BSA: 2.14 PROCEDURE(S) PERFORMED [id number], CORONARY OR GRAFT, INITIAL VESSEL CLINICAL PROFILE AND CO-MORBIDITIES Indications: Suspected CAD Heart Failure: None Stress/Imaging Coronary Calcium Score: Yes Calcium Score: 2800 Calcium Score: 2800 CAD Presentations: No Sxs, no angina. CONCLUSIONS iFR mid LAD 0.95 RECOMMENDATIONS Medical therapy Follow up with Dr. Goode INTERVENTION INFORMATION LESION SITE: LAD (Ostial) Lesion Complexity: Non-High/Non-C Pre Stenosis: 65 % Pre intervention KIM flow: 3 PROCEDURE: iFR Post Stenosis: 65 % Post intervention KIM flow: 3 Lesion Devices: Aamir Sci .035 180cm str. Magic wire Cordis 6 Fr XB3.0 100cm Guide Catheter COMPLICATIONS No Complications PROCEDURE MEDICATIONS Fentanyl 50 mcg IV Versed 1 mg IV Versed 1 mg IV Versed 1 mg IV Fentanyl 25 mcg IV Oxygen: 2 L/min via nasal cannula Heparin diluted in 23cc Heparinized saline. Patient given 4cc IA of this solution. 09/15/2018 08:37:2 5 Heparin 7000 unit(s) IV 09/15/2018 09:10:21 Verapamil 2.5mg, Ntg 100mcgs, 2000 units of Heparin diluted in 23cc Heparinized saline. Patient give n 4cc IA of this solution. 09/15/2018 08:37:25 IV Bolus: .9 NaCl 500 ml total 09/15/2018 08:39:01 SUMMARY OF HEMODYNAMIC DATA Time AIR REST ECG 08:01:32 AO 91/52 (70) SA 08:42:54 LV 86/-2, 2 08:48:42 LV 92/-3, 2 08:48:49 LV 106/-1, 6 08:50:02 LV 105/-1, 9 08:50:08 LVp 100/0, 9 08:50:12 AOp 93/51 (69) 08:50:17 AO 112/48 (71) 08:55:42 Signed By Sebastien Vann MD On 09/15/2018 9:31:53 AM Sebastien Vann MD
[2018-09-15 09:41] LABS: ACT Activated Clotting Time 241 sec (74-137)
--- OUTSIDE RECORDS SUMMARY | 2018-11-19 14:38 | XMS RPT_ITS | Continuity of Care Document ---
:1950 Author Organization [facility] Address [address] [place] [address] Phone Care Team Providers Name Role Phone Jessica Limon DO Unavailable Dr. Landon Werner Unavailable [facility], [facility] Unavailable Dr. Jeremiah Banegas S Unavailable Pravin Goode MD Unavailable Anneliese Stover Unavailable Unavailable Rosario Dickson [...] Active Chronic obstructive pulmonary disease (J44.9, 496) Comments: not smoking - chronic stable-continue present regimen Status: Active Coronary artery disease (I25.10, 414.00) Status: Active Current smoker (F17.200, 305.1) Comments: [...] Status: Active Lung nodule (R91.1, 793.11) Comments: solilia is following pet scan neg Status: Active [...] 268.9) Status: Active Medications Name Dates Details Aspirin Adult Low Strength 81 MG Oral Tablet Chewable 1 (one) Tablet Chewable qd for 0 days Quantity: 30 {Tablet} Refills: 0 Ordered:16-Aug-2018 Fast DO, Jessica AFast DO, Jessica A Start : 16-Aug-2018 Active CALTRATE 600+D PLUS, 296-285WB-PGFO (Oral Tablet) 1 tab bid (600-400 MG-UNIT) Active Cialis 5 MG Oral Tablet 1 (one) Tablet Tablet qd prn for 0 days Quantity: 30 {Tablet} Refills: 0 Ordered:21-Sep-2017 Marcelle Bar Start : 20-Jun-2017 Active Dilantin 100 MG Oral Capsule 3pills Capsule qd for 90 days Quantity: 270 {QS} Refills: 3 Ordered:06-Aug-2016 Fast DO, Jessica AFast DO, Jessica A Start : 06-Aug-2016 Active [...] days Quantity: 1 {Milliliter} Refills: 1 Ordered:30-Jun-2018 Hola DOJessica DOJessica A Start : 30-Jun-2018 Active Comments:This was [...] days Quantity: 20 {Tablet} Refills: 0 Ordered:20-Jun-2017 Hola DORudolphJessica Ramsey DO Start : 15-Jun-2017 End : 20-Jun-2017 Inactive [...] Start : 28-Jul-2010 End : 26-Jan-2012 Inactive Atelvia 35 MG Oral Tablet Delayed Release [...] 0 days Quantity: 30 {Tablet} Refills: 0 Ordered:2-Oct-2014 Reny Baker LPN Start : 08-Oct-2013 End [...] Procedures Procedure Dates Details [place] ([address]) Date: 17-Feb-2015 Completed 17-Feb-2015 Appendectomy Completed Colonoscopy Completed 04-Nov-2015 Comments: Within Normal Limits. Small adenoma removed- repeat in 5 years Tonsillectomy Completed Date Value Details 07-Sep-2018 Chest PA and Lateral Result: Comments: See Note; NOTES: [facility] Imaging Services [address] [place] [address] Chest PA and Lateral MR#: [id number] Acct: [id number] Name: CHELI NEUMANN Rep #: [id number] : 1950 M 67 From: Phil Can MD PCP: Jessica Limon DO Status: PRE [facility] Study: Chest PA and Lateral Date of Exam: 09/07/18 Exam# [id number] Ordering Dr: Pravin Goode MD STUDY: X-RAY CHEST REAS ON FOR EXAM: Male, 67 years old. Worsening chest pain TECHNIQUE: PA and lateral views of the chest. COMPARISON: 06/16/2010 FINDINGS: There are interstitial fibrot ic changes of the lungs. There is no [...] superimposed acute pulmonary process Electronically Signed: Atul valdez MD at 11:36 EST , Service support , CC: Pravin Goode MD; Jessica Limon DO Accreditation Manager: Signed 06-Sep-2018 Cardiology Visit Report Result: Comments: See Note; NOTES: [facility] [address] [place] [address] OFFICE VISIT Date of Service: 09/06/18 MR#: [id number] Acct: [id number] Name: CHELI NEUMANN Rep #: [id number] : 1950 Provider: Pravin Goode MD Age/Sex: 67/M Location: [facility] Status: Signed HPI HPI Chief Complaint: Initial visit Details: CHELI NEUMANN, is a 67 M who presents to the office today for an initial visit. He is a gentleman with a history of previous tobacco abuse hyperlipidemia who as part of his routine physical and underwent a co ronary calcification score. He denied any chest pain [...] Weight: 202 lb 09/06/18 Body Mass Index (BM I) 27.3 09/06/18 Blood Pressure 122/60 H H 09/06/18 Respiratory Rate 18 09/06/18 Pulse Rate 64 Intake Visit Reasons: PCP ref'd for abn calcium score Allergies No Known Allergies Allergy (Verified 05/17 12:32) Medications Phenytoin Na [Dilantin] 300 mg PO DAILY 07/05/18 [History Confirmed 09/06/18] Simvastatin [Zocor] 10 mg PO QHS 07/05/18 [History Confirmed 09/06/18] Tiotropium [place] [Spir tere] 18 mcg IH DAILY 07/05/18 [History Confirmed 09/06/18] albuterol sulfate HFA 90 mcg/actuation aerosol inhaler 1 puff INHALATION Q6H PRN 08/28/18 [History Confirmed 09/06/18] calcium carb 300 mg-D3 8 00 unit-mag ox 25 mg-cop breaker 0.5 mg-sergey-Zn tablet 2 tab PO DAILY 08/28/18 [History Confirmed 09/06/18] denosumab 60 mg/mL subcutaneous syringe 60 mg SC [id number] 08/28/18 [History Confirmed 09/06/18] aspiri n 81 mg tablet,delayed release 81 mg PO QDAY #90 tab 09/06/18 [Rx Confirmed 09/06/18] cholecalciferol (vitamin D3) 1,000 unit/drop oral drops unit PO ml 09/06/18 [History Confirmed 09/06/18] clopidogrel 75 mg tablet 75 mg PO DAILY #30 tab 09/06/18 [Rx Confirmed 09/06/18] phenobarbital 16.2 mg tablet 64.8 mg PO DAILY 60 Days #240 tab 09/06/18 [History Confirmed 09/06/18] [facility] Medical History (Review ed 09/06/18 @ 14:47 by Pravin Goode MD) Hyperlipidemia (Chronic) Anemia (Chronic) COPD (chronic obstructive pulmonary disease) (Chronic) Depression (Chronic) Erectile dysfunction (Chronic) Lung nodule (Chronic) Obstructive sleep apnea (Chronic) Osteoporosis (Chronic) PVD (peripheral vascular disease) (Chronic) Seizure disorder (Chronic) Thyroid nodule (Chronic) Nicotine dependence (Inactive) Surgic al History History of appendectomy (Resolved) History of tonsillectomy (Resolved) Family History Father Sergo idney disease Heart disease CHF Sister Diabetes Social History Smoking Status: Former smoker quit date: 03/01/16 pack-years: 45 alcohol intake: current alcohol intake frequency: holidays/special occas ions only ROS Const Const: Negative for fatigue, weakness, difficulty sleeping, frequent falls, excessive sweating or headache(s) Eyes Eyes: Negative for loss of peripheral vision, transient loss of vision, blurry vision, tunnel vision or double vision ENT ENT: Positive for dizziness; negative for headache(s), Nosebleed/epistaxis or balance problems Cardio Chest Pain: No Palpitations: No Edema: No ne Muscle aches with walking: None Resp Respiratory: Positive for SOB with activity; negative for SOB at rest, SOB orthopnea\SOB lying down, paroxysmal nocturnal dyspnea or Cough GI GI: Negative nausea, heartburn, black,tarry stools or vomiting : Negative for hematuria Musc Musc: Negative for balance problems, muscle aches/ myalgia, muscle weakness or joint pain Skin Skin: Negative non-healing le sions, unusual bruising or rash Neuro Neuro: Positive for dizziness and lightheadedness; negative for weakness, frequent falls, headache(s), blurry vision, double vision, orthostatic symptoms, near sync ope, syncope or lack of coordination Ge[place]any Hematologic/Lymphatic: [...] to inspection, normocephalic and atraumatic Ears: hearing g rossly normal bilaterally and external ears normal Nose: external nose normal, nasal mucous membranes and turbinates normal, nares normal, septum normal, no nasal discharge Face and Sinus: face symmetri c Mouth: oral mucosae normal, tongue normal, oropharynx normal and moist mucous membranes Teeth and gingiva: dentition normal Throat: posterior oropharynx normal, tonsils normal and uvula midline Eyes G eneral: appearance normal, both eyes and all related structures Eyelids: eyelids normal Conjunctivae: conjunctivae normal Pupils: PERRL, normal by confrontation and accommodation normal EOM: EOM intact bilaterally Neck Neck: normal visual inspection, trachea midline and no JVD JVD: +5 Carotids: normal carotid upstroke and bounding pulses Chest Chest inspection: normal inspection of the chest, symmetri c chest movement and normal respiratory effort Auscultation: Bilateral: Clear to Auscultation Cardio Palpation: normal PMI Rate: regular rate Rhythm: regular rhythm Heart sounds: S1 normal, S2 normal an d normal, physiologic split S2; negative rub, gallop or murmur GI GI: normal to inspection, soft, no hepatosplenomegaly and bowel sounds present Neuro General: alert, awake, oriented x3, no focal sensor y deficit, gait normal and moves all extremities Skin Skin: no rashes or lesions noted Extremities Pulses: Normal: Right Femoral Pulse, Left Femoral Pulse, Right Dorsalis Pedis Pulse, Left Dorsalis Pedi s Pulse, Right Posterior Tibial Pulse, Left Posterior Tibial Pulse, Right Radial Pulse, Left Radial Pulse Lower Extremity Edema: None: Bilateral Musculoskel Musculoskeletal: No joint tenderness Psych Ps ychological: normal affect Assessment AND Plan 1. Elevated coronary artery calcium score R93.1 Plan He does have a history of an elevated calcium score. I discussed with him about the risk benefits an d alternatives including stress testing versus cardiac catheterization. At this time it appears that we are leaning more towards the latter. Depending on the findings further recommendations will be mad e. He will need to continue with risk factor modification including lipid-lowering as well as tobacco cessation. I will keep you apprised of any further developments. Thank you for allowing me to parti cipate in the care of your patient. Please don't hesitate to call if any issues arise Orders Orders: 2. Hyperlipidemia E78.5 Plan He does have a history of mild hyperlipidemia. 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) Coding Level of Care Code Off vis,new,level 4 Diagnoses Elevated coronary artery calcium score R93.1 Hyperlipidemia E78.5 Coding Level of Care Code Off vis,new,level 4 Diagnoses Elevated coronary artery calcium score R93.1 Hyperlipidemia E78.5 Supplemental Info Supplemental Information Diagnostics Coronary Angiography CT 08/11/18 09/06/18 150 0 <Electronically signed by Pravin Goode MD> Date Pravin Goode MD Cosigner Signature: Date (if applicable) CC: Jessica Limon DO 06-Sep-2018 12 Lead EKG performed by BMS Result: Comments: See Note; NOTES: [facility] [address] [place] [address] 12 Lead EKG performed by BMS 09/06/18 1232 MR#: [id number] Acct: [id number] Name: MORIAHRosy CUATECADE Rep #: [id number] : 1950 67 From: Pravin Goode MD Attending Dr: Pravin Goode MD Status: DEP AMB Ordering Dr: Pravin Goode MD Date: 09/06/18 Location: [facility] Sex: M C Admitted: ORDER # : [id number] BMS/12 Lead EKG performed by BMS Sinus Bradycardia Low voltage in limb leads. -RSR(V1) -nondiagnostic. ABNORMAL 09/12/18 1254 <Electronically signed by Pravin Goode MD> Yomi e Pravin Goode MD CC: Jessica Limon DO Date Dictated: 09/06/18 1232 Date Transcribed: 09/06/18 1232 Accreditation Manager: [place] Signed 11-Aug-[address] w/CCTA Result: Comments: See Note; NOTES: [facility] Imaging Services [address] [place] [address] w/CCTA MR#: [id number] Acct: [id number] Name: CHELI NEUMANN Rep #: [id number] : 1950 M 67 From: Charbel Cunha MD PCP: Jessica Limon DO Status: REG CLI Study: Limited Chest CT w/CCTA Date of Exam: 08/11/18 Exam# [id number] Ordering Dr: Jessica Limon DO STUDY: CT CH EST WITHOUT CONTRAST REASON FOR EXAM: Male, 67 years old. Calcium scoring examination. This is an over read examination. RADIATION DOSAGE (If Supplied By Facility): CTDIvol = ( 12.19 ) mGy, DLP = ( 19 5.04 ) mGycm TECHNIQUE: Transaxial imaging was performed without the administration of intravenous contrast material. Individualized dose optimization techniques were used for this CT. COMPARISON: Co mparison is made with prior examination dated February 16, 2018. FINDINGS: Hyperinflation. Minimal increased markings at the lung bases suggestive of scarring. There is no demonstrated pleural abnormality. There are calcifications of the coronary arteries. Minimal degree of pericardial thickening. There are multiple small lymph nodes within the mediastinum, which ar e normal in size and morphology most compatible with reactive lymph hyperplasia. Normal hilar regions. Normal unenhanced pulmonary arteries. There is atherosclerotic calcification of the aortic arch . There are multi-level degenerative changes of the thoracic spine. Multiple hepatic cysts. CT/Limited Chest CT w/CCTA IMPRESSION: No acute abnorm ality is seen. Electronically Signed: Charbel Cunha MD at 12:43 EST Tel [phone], Service support , CC: Jessica Limon DO Accreditation Manager: Signed 11-Aug-[address] w/CCTA Result: Comments: See Note; NOTES: [facility] Imaging Services [place] [address] w/CCTA MR#: [id number] Acct: [id number] Name: CHELI NEUMANN Rep #: [id number] : 1950 M 67 From: Charbel Cunha MD PCP: Jessica Limon DO Status: REG CLI Study: Limited Chest CT w/CCTA Date of Exam: 08/11/18 Exam# [id number] Ordering Dr: Jessica Limon DO STUDY: CT CH EST WITHOUT CONTRAST REASON FOR EXAM: Male, 67 years old. Calcium scoring examination. This is an over read examination. RADIATION DOSAGE (If Supplied By Facility): CTDIvol = ( 12.19 ) mGy, DLP = ( 19 5.04 ) mGycm TECHNIQUE: Transaxial imaging was performed without the administration of intravenous contrast material. Individualized dose optimization techniques were used for this CT. COMPARISON: Co mparison is made with prior examination dated February 16, 2018. FINDINGS: Hyperinflation. Minimal increased markings at the lung bases suggestive of scarring. There is no demonstrated pleural abnormality. There are calcifications of the coronary arteries. Minimal degree of pericardial thickening. There are multiple small lymph nodes within the mediastinum, which ar e normal in size and morphology most compatible with reactive lymph hyperplasia. Normal hilar regions. Normal unenhanced pulmonary arteries. There is atherosclerotic calcification of the aortic arch . There are multi-level degenerative changes of the thoracic spine. Multiple hepatic cysts. CT/Limited Chest CT w/CCTA IMPRESSION: No acute abnorm ality is seen. Electronically Signed: Charbel Cunha MD at 12:43 EST Tel [phone], Service support , CC: Jessica Limon DO Accreditation Manager: Signed 08-Aug-2018 Lower Ext/No Jt/w/o Result: Comments: See Note; NOTES: [facility] Imaging Services [address] [place] [address] Lower Ext/No Jt/w/o MR#: [id number] Acct: [id number] Name: CHELI NEUMANN Rep #: [id number] : 1950 M 67 From: Demarco Ellsworth MD PCP: Jessica Limon DO Status: REG CLI Study: Lower Ext/No Jt/w/o Date of Exam: 08/08/18 Exam# [id number] Ordering Dr: Jeremiah Banegas DPM STUDY: MRI RIGHT IN DFOOT REASON FOR EXAM: Painful soft tissue mass, no specific injury. TECHNIQUE: Standardized fat and water weighted pulse sequences were obtained in all 3 orthogonal planes. COMPARISON: MRI images . FINDINGS: Normal talonavicular articulation. Normal calcaneocuboid articulation. Normal navicular-cuneiform articulations. Normal intercuneiform articulatio ns. Normal first tarsometatarsal articulation. Normal Lisfranc ligament. Normal second and third tarsometatarsal articulations. Normal cuboid fourth and cuboid fifth tarsometatarsal articulation. Norm al first through fifth metatarsi. Normal tibialis anterior tendon. Normal extensor hallucis longus tendon. Normal extensor digitorum longus tendons. Normal peroneus longus tendon and distal insertion. Normal peroneus brevis tendon and distal insertion. Normal intrinsic muscles of the mid and forefoot region. Normal extensor digitorum brevis muscle. There is no significant change of the plantar fibr omatosis in the central cord at the level of the base of the first proximal phalanx (T1 sagittal images 11, 12; T1 series 5 images 19-22) measuring 0.5 x 0.7 x 1.6 cm (AP x transverse x length). 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 Electronically Signed: Marcelino Ellsworth MD at 11:56 EST Tel , Service support , CC: Jessica Limon DO; Jeremiah Banegas DPM Accreditation Manager: Signed 23-May-2018 PT D/C Summary (1) Result: Comments: See Note; NOTES: [facility] [address] [place] [address] Fax REHABILITATION SERVICES DISCHAR SUMMARY MR#: [id number] Acct: [id number] Name: CHELI NEUMANN Rep #: [id number] : 1950 67 From: Rose Colunga PT, Cert. MDT Referring DrArias: Jessica Limon DO Status: REG RCR Insurance: [employer] E [employer] A B COMMERCIAL OTHER HP [...] PAIN. DOING HEP BUT HASN'T GONE TO [facility] BUT PLANS TO WHEN GOLFING SEASON IS OVER. PATIENT STATES HE DOESN'T THINK HE H TAKEN ANY ADVIL FOR ABOUT A MONTH. DRIVING TO [email or web address]. FOR GOLF OUTING FOR A WEEK 35 [...] please feel free to call me at [phone]. Thank you for the referral of this patient. Sin Rose alonso <Electronically signed by Rose Colunga PT, CertArias MDT> 05/23/18 1303 CC: Jessica Limon DO ANDREA Signed 18-Apr-2018 Re-Evaluation - PT (1) Result: Comments: See Note; NOTES: [facility] [address] [place], [place] [address] Fax REEVALUATION / MEDICARE RECERTI FICATION PHYSICAL THERAPY MR#: [id number] Acct: [id number] Name: THIENCADE Rep #: [id number] : 1950 67 From: Rose Colunga PT, [...] REPORTS HE IS A MEMBER AT THE [employer]. STILL FEELING A LITTLE BIT OF TIGHTNESS [...] do not hesitate to contact me at [phone] by phone or if you have questions or concerns regarding this new plan of care! Sincerely, Rose Colunga <Electronically signed by Vicente Colunga PT, Cert. MDT> 04/18/18 1436 CC: Jessica Limon DO ANDREA Signed For Medicare only, by signing this I certify the plan of care. Physicians Signature Date 28-Mar-2018 Inital Evaluation (1) - PT Result: Comments: See Note; NOTES: [facility] [address] [place] [address] Fax REHABILITATION SERVICES INITIAL EVALUATION MR#: [id number] Acct: [id number] Name: CHELI NEUMANN Rep #: [id number] : 1950 67 From: Rose Colunga PT, [...] Pain Scale: WORST: 7/10, LEAST 1/10. Currently: 2/10. Commenced as a result of: NO APPARENT REASON BUT DROVE TO [place] THE FOR A GOLF CL ASS. THE [...] decrease swelling/inflammation, To increase ROM Thank y ou for the opportunity to evaluate your patient. For Medicare and Medicare HMO plans, please review the plan of care and approve it. It will need to be FAXED BACK to us at [phone] for Medicare pur poses. Please let me know if there are questions or concerns regarding this plan of care. Physician Signature: Date: <Electronic ally signed by Rose Colunga PT, Cert. T> 03/28/18 1411 CC: Jessica Limon DO ANDREA Signed For Medicare only, by signing this I certify the plan of care. Physicians Signature Date 24-Mar-2018 Carotid Duplex Ultrasound Result: Comments: See Note; NOTES: [facility] Cardiovascular Services [address] [place] [address] Carotid Duplex Ultrasound 03/20/18 0956 MR#: [id number] Acct: [id number] Name: CHELI NOWAK Rep #: [id number] : 1950 67 From: David Mo MD Attending Dr: Jessica Limon DO Status: REG CLI Ordering Dr: Jessica Limon DO Date: 03/20/18 Location: [facility] Sex: M C Admitted: Reason For Study: [...] the left vertebral artery. Procedure Carotid Duplex 51848. Exam performed in department. Interpretation Sum lester No significant atherosclerotic plaque or stenosis noted in the right internal carotid artery. Mild (<50%) stenosis left extracranial internal carotid. Flow within the vertebral arteries is antegrade bilaterally. Ordering Physician: Jessica Limon Referring Physician: Jessica Limon ed By: Bethany Brar RVT 07728 Date David Mo MD CC: Jessica Limon DO Date Dictated: 03/20/18 0956 Date Transcribed: 03/24/18728 Accreditation Manager: Signed 21-Mar-2018 L/S Spine Min 4 Views Result: Comments: See Note; NOTES: [facility] Imaging Services [address] [address] L/S Spine Min 4 Views MR#: [id number] Acct: [id number] Name: CHELI NEUMANN Rep #: [id number] : 1950 67 From: Phil Lazcano MD PCP: Jessica Limon DO Status: REG CLI Study: L/S Spine Min 4 Views Date of Exam: 03/21/18 Exam# [id number] Ordering Dr: Jsesica Limon DO STUDY: X-RAY - LUMBA R [...] Service support , CC: Jessica Limon DO Accreditation Manager: Signed 16-Feb-2018 Chest without Contrast Result: Comments: See Note; NOTES: [facility] Imaging Services [address] [place] [address] Chest without Contrast MR#: [id number] Acct: [id number] Name: CHELI NEUMANN Rep #: [id number] : 1950 M 67 From: Kali Diaz MD PCP: Jessica Limon DO Status: REG CLI Study: Chest without Contrast Date of Exam: 02/16/18 Exam# [id number] Ordering Dr: Carlos Bowers MD STUDY: CT [...] CC: Jessica Limon DO; Carlos Bowers MD Accreditation Manager: Signed 16-Nov-[address] Lung Screening Result: Comments: See Note; NOTES: [facility] Imaging Services [address] [place] [address] Lung Screening MR#: [id number] Acct: [id number] Name: CHELI NEUMANN Rep #: [id number] : 1950 M 66 From: Charbel Cunha MD PCP: Jessica Limon DO Status: [facility] CLI Study: Low Dose CT Lung Screening Date of Exam: 11/16/17 Exam# [id number] Ordering Dr: Carlos Bowers MD STUDY: LOW [...] Charbel Cunha MD at 10:24 EDT Tel [phone], Service suppo rt , CC: Jessica Limon DO; Carlos Bowers MD Accreditation Manager: Signed 22-Jun-2017 Thyroid Result: Comments: See Note; NOTES: [facility] Imaging Services [address] [place] [address] Thyroid MR#: [id number] Acct: [id number] Name: CHELI NEUMANN Rep #: [id number] : [birth year] M 66 From: Kali Diaz MD PCP: Jessica Limon DO Status: REG CLI Study: Thyroid Date of Exam: 06/22/17 Exam# [id number] Ordering Dr: Jessica Limon DO STUDY: THYROID [...] Service support , CC: Jessica Limon DO Accreditation Manager: Signed 16-Mar-2017 Finger(s) Min 2 Views Result: Comments: See Note; NOTES: [facility] Imaging Services [address] [place] [address] Verdana 4d Finger(s) Min 2 Views MR#: [id number] Acct: [id number] Name: CHELI NEUMANN p #: [id number] : 1950 M 66 From: Chas Kulkarni MD PCP: Jsesica Limon DO Status: REG CLI Study: Finger(s) Min 2 Views Date of Exam: 03/16/17 Exam# [id number] Ordering Dr: Jessica Limon DO STUDY: X- [...] Service support , CC: Jessica Limon DO Accreditation Manager: Signed 16-Mar-2017 Knee 4 or More Views Result: Comments: See Note; NOTES: [facility] Imaging Services [address] [place] [address] Verdana 4d Knee 4 or More Views MR#: [id number] Acct: [id number] Name: CHELI NEUMANN Rep #: [id number] : 1950 66 From: Chas Kulkarni MD PCP: Jessica Limon DO Status: REG CLI Study: Knee 4 or More Views Date of Exam: 03/16/17 Exam# [id number] Ordering Dr: Jessica Limon DO STUDY: X-RA [...] Service support , CC: Jessica Limon DO Accreditation Manager: Signed 01-Feb-2017 DXA BONE DENS W/VERT FX ASMT Result: Comments: See Note; NOTES: [facility] Imaging Services [address] [place] [address] Verdana 4d DXA BONE DENS W/VERT FX ASMT MR#: [id number] Acct: [id number] Name: IRVING NEUMANN Rep #: [id number] : 1950 [facility] From: Charbel Cunha MD PCP: Jessica Limon DO Status: REG CLI Study: DXA BONE DENS W/VERT FX ASMT Date of Exam: 02/01/17 Exam# [id number] Ordering Dr: Marcelino Limon DO STUDY: DUAL [...] Charbel Cunha MD at 12:41 EDT Tel [phone], Service support , Fax CC: Jessica Limon DO Accreditation Manager: Signed 01-Dec-2016 Carotid Duplex Ultrasound Result: Comments: See Note; NOTES: [facility] Cardiovascular Services [address] [place] [address] Carotid Duplex Ultrasound 11/29/16 0940 MR#: [id number] Acct: [id number] Name: CHELI NOWAK Rep #: [id number] : 1950 66 From: René Aiken MD Attending Dr: Jessica Limon DO Status: REG CLI Ordering Dr: Jessica Limon DO Date: 11/29/16 Location: [facility] Sex: M C Admitted: Reaso n For [...] the left vertebral artery. Procedure Carotid Duplex 84936. Exam performed in department. Interpretation Summary Mild (<50% ) stenosis right extracranial internal carotid. Mild (<50%) stenosis left extracranial internal carotid. Flow within the vertebral arteries is antegrade bilaterally. Ordering Physician: Jessica Limon Performed By: Bethany Brar RVT 12/01/16 1035 Date René Aiken MD CC: Jessica Limon DO Date Dictated: 11/29/16 0940 Date Transcribed: 12/01/16 103 Accreditation Manager: Signed 10-May-2016 Brain/Head W/WO Contrast Result: Comments: See Note; NOTES: [facility] Imaging Services [address] [place] [address] Verdana 4d Brain/Head W/WO Contrast MR#: [id number] Acct: [id number] Name: CHELI NEUMANN Rep #: [id number] : 1950 M 65 From: Chas Kulkarni MD PCP: Jessica Limon DO Status: REG CLI Study: Brain/Head W/WO Contrast Date of Exam: 05/10/16 Exam# [id number] Ordering Dr: Jessica Limon TUDY: CT BRAIN [...] Service support , CC: Jessica Limon DO Accreditation Manager: Signed 06-May-2016 Thyroid Result: Comments: See Note; NOTES: [facility] Imaging Services [address] [place] [address] Verdana 4d Thyroid MR#: [id number] Acct: [id number] Name: CHELI NEUMANN Rep #: [id number] : 1950 M 65 From: Giorgio Hernandez MD PCP: Jessica Limon DO Status: REG CLI Study: Thyroid Date of Exam: 05/06/16 Exam# [id number] Ordering Dr: Jessica Limon DO STUDY: THYROID [...] at 7:32 EDT Tel , Service support [phone], F ax [phone] CC: Jessica Limon DO Accreditation Manager: Signed 20-Apr-2016 Echocardiogram Complete Result: Comments: See Note; NOTES: [facility] Cardiovascular Services [address] [place] [address] Echo Complete 04/20/16 0829 MR#: [id number] Acct: [id number] Name: THIENCHELI Rep #: [id number] : 1950 65 From: Neeraj Porter MD Attending Dr: Jessica Limon DO Status: REG CLI Ordering Dr: Jessica Limon DO Date: 04/20/16 Location: [facility] Sex: M C Admitted: Reason For Stud [...] 1337 Date Neeraj Porter MD CC: Jessica Limon DO Date Dictated: 0829 Date Transcribed: 04/20/16 8103 Accreditation Manager: Signed 20-Apr-2016 Nuclear Stress Test - Treadmil Result: Comments: See Note; NOTES: [facility] Imaging Services [address] [place] [address] Edwin 4d Nuclear Stress Test - Treadmil MR#: [id number] Acct: [id number] Name: CHELI NEUMANN Rep #: [id number] : 1950 65 From: Neeraj Porter MD [...] 68%. Neeraj Porter MD T: NTS JOB: [id number] 04/21/16 1019 <Electronically signed by Neeraj Porter MD> Date Neeraj Porter MD CC: Jessica Limon DO Date Dictated: 04/20/1650 Date Transcribed: 04/20/1650 Accreditation Manager: Signed 07-Apr-2016 ELECTROCARDIOGRAM, COMPLETE (ECG) (21590) Comments: severe sinus lokesh- otherwise normal sinus- normal axis no acute st t wave changes Result: [MEASUREMENTS ANALYSIS] Date of Test: 04/07/2016 11:15:52; Heart Rate: 39; WI Interval: 192; QRS: 96; QT Interval: 462; Corrected QT Interval (QTc): 426; P Wave [place]: 69; QRS Wave [place]: 66; T Wave [place]: 50; Blood Pressure: 114/68 [ECG DIAGNOSTIC STATEMENTS] Date of Test: 04/07/2016 11:15:52; Summary: Marked sinus Bradycardia -With rate variation cv = 10.Low voltage in limb leads. ABNORMAL [MEASUREM ENTS ANALYSIS] Date of Test: 04/07/2016 11:14:53; Heart Rate: 41; WI Interval: 188; QRS: 96; QT Interval: 458; Corrected QT Interval (QTc): 425; P Wave [place]: 90; QRS Wave [place]: 65; T Wave [place]: 49; Bloo d Pressure: 114/68 [ECG DIAGNOSTIC STATEMENTS] Date of Test: 04/07/2016 11:14:53; Summary: Marked sinus Bradycardia -With rate variation cv = 22.Low voltage in limb leads. ABNORMAL 12-Dec-2015 Carotid Duplex Ultrasound Result: Comments: See Note; NOTES: [facility] Cardiovascular Services [address] [place] [address] Carotid Duplex Ultrasound 12/10/15 0904 MR#: [id number] Acct: [id number] Name: CHELI NEUMANN Rep #: [id number] : 1950 65 From: René Aiken MD [...] the left vertebral artery. Procedure Carotid Duplex 28770. The exam was diagnostic. Exam performed in [...] DO Date Dictated: 12/10/1504 Date Transcribed: 12/12/151751 Accreditation Manager: Signed 10-Dec-2015 Aorta Result: Comments: See Note; NOTES: [facility] Imaging Services [address] [place] [address] Verdana 4d Aorta MR#: [id number] Acct: [id number] Name: CHELI NEUMANN A Rep # : [id number] : 1950 M 65 From: Charbel Cunha MD PCP: Jessica Limon DO Status: REG CLI Study: Aorta Date of Exam: 12/10/15 Exam# [id number] Ordering Dr: Jessica Limon DO PROCEDURES: ULTRA [...] Cristina i, MD at 10:18 EDT Tel [phone], Service support [phone], CC: Jessica Limon DO Accreditation Manager: Signed 23-Oct-2015 Spirometry (95670) Result: 08-Aug-2015 ELECTROCARDIOGRAM, COMPLETE (ECG) (31517) Comments: ekg showed normal sinus rhythym, normal axis, no acute st/t wave changes Result: [MEASUREMENTS ANALYSIS] Date of Test: 08/08/2015 11:57:53; Heart Rate: 57; WI Interval: 192; QRS: 94; QT Interval: 428; Corrected QT Interval (QTc): 423; P Wave [place]: 78; QRS Wave [place]: 76; T Wave [place]: 47; Blood Pressure: 120/72 [ECG DIAGNOSTIC STATEMENTS] Date of Test: 08/08/2015 11:57:53; Summary: Sinus Bradycardia Low voltage in limb leads. ABNORMAL 30-Jan-2015 Dexa Bone Density Study (HP) Result: Comments: See Note; NOTES: [facility] Imaging Services [address] [place] [address] Bone Density Report MR#: [id number] Acct: [id number] Name: CHELI NEUMANN Rep #: [id number] : 1950 M 64 From: Charbel Cunha MD PCP: Jessica Limon DO Status: REG CLI Study: Dexa Bone Density Study (HP) Date of Exam: 01/30/15 Exam# [id number] Ordering Dr: Jessica Limon DO STUDY: DUAL [...] Charbel Cunha MD at 15:54 EDT Tel [phone], Service support [phone], CC: Jessica Limon DO Accreditation Manager: Signed 25-Sep-2014 Carotid Duplex Ultrasound Result: Comments: See Note; NOTES: [facility] Cardiovascular Services [address] [place] [address] Carotid Duplex Ultrasound 09/25/14 0850 MR#: [id number] Acct: [id number] Keo e: CHELI NEUMANN Rep #: [id number] : 1950 63 From: René Aiken MD Attending Dr: Jessica Limon DO Status: REG CLI Ordering Dr: Jessica Limon DO Date: 09/25/14 Location: [facility] Sex: M C Admitted : Rt. Velocities/BP [...] in the left bulb. Procedure Carotid Duplex 31625. Exam performed in department. Interpretation Summary Mild (<50%) stenosis right extracranial internal carotid. Mild (<50%) stenosis left extracranial internal carotid. Flow w ithin the vertebral arteries is antegrade bilaterally. Ordering Physician: Jessica Limon Perform ed By: Lynn Granados RDCS 09/25/14 1044 Date René Aiken MD CC: Jessica Limon DO Date Dictated: 09/25/14 0850 Date Transcribed: 09/25/14 1044 Accreditation Manager: Signed 15-Mar-2014 EKG (37375) Comments: ekg showed rhythym with periods of irregular rhythm- not afib, normal axis, no acute st/t wave changes Result: [MEASUREMENTS ANALYSIS] Date of Test: 03/15/2014 07:58:47; Heart Rate: 57; WI Interval: 202; QRS: 98; QT Interval: 412; Corrected QT Interval (QTc): 407; P Wave [place]: 90; QRS Wave [place]: 62; T Wave [place]: 52; Blood Pressure: 126/78 [ECG DIAGNOSTIC STATEMENTS] Date of Test: 03/15/2014 07:58:47; Summary: Sinus Bradycardia - occasional ectopic ventricular beat Low voltage in limb leads. -RSR(V1) -nondiagnostic. ABNORMAL Immunization Name Dates Details Zoster (shingles) on: 17-Feb-2015 Comments: Site: Posterior Upper Arm (Left) Lot #: [id number] Family History Unknown Family Member Name Dates [...] smoker Vital Signs Date Test Result Details 05-Obq-078671:55 Temperature 98.1 f Comments: Method: Temporal Pulse 58 /min Comments: Pattern: Regular Respiration Rate 16 /min Comments: Pattern: Unlabored BP Systolic 122 mm[Hg] Comments: Patient Position: Sitting; Cuff Location: Left Arm; Cuff Size: Standard BP Diastolic 68 mm[Hg] Comments: Patient Position: Sitting; Cuff Location: Left Arm; Cuff Size: Standard Weight 193.125 lb Height 71.25 in Body Mass Index Calculated 26.75 kg/m2 Body Surface Area Calculated 2.08 m2 :56 Temperature 97.7 f Comments: Method: Temporal [...] kg/m2 Body Surface Area Calculated 2.13 m2 :27 Temperature 97.2 f Comments: Method: Temporal Pulse [...] 2.08 m2 Results Date Description Value Details :24 ACT Activated Clotting Time Comments: [facility] LaboratoryPoint of [address] [place], [place] [address] ACTk CLOT TIME 241 {sec} (Abnormal) Range: 74-137 9-Wjl-302294:41 Basic Metabolic Profile (BMP) Comments: [facility] [address] [place], [address] GAP 7 (Normal) Range: 5-15 CO2 28.0 mmol/L (Normal) Range: 21.0-32.0 CL 104 mmol/L (Normal) Range: 98-107 K 4.0 mmol/L (Normal) Range: 3.5-5.1 NA 139 mmol/L (Normal) Range: 136-145 CA 8.9 mg/dL (Normal) Range: 8.5-10.1 BUN/CRE 17.1 {RATIO} (Normal) Range: 10-20 EST GFR - AA 103 mL/min (Normal) Comments: GFR Calc EST GFR 85 mL/min (Normal) Comments: Non- GFR Calc CREAT,SERUM 0.94 mg/dL (Normal) Range: 0.70-1.30 Comments: The validity of the calculated GFR AND GFRAA in patients over70 years has not been determined. Clinical correlation isessential. BUN 16 mg/dL (Normal) Range: 7-18 GLU 77 mg/dL (Normal) Range: 74-106 Comments: Please note revised GLUCOSE reference range ohwlsofbs46/02/2018. 8-Ocr-910900:41 CBC W/Diff, Automated Comments: [facility] [address] [place], [address] Absolute Lymph 2.78 {X10_3/ul} (Normal) Range: 0.83-4.51 Absolute Neut 3.7 {X10_3/uL} (Normal) Range: 2.0-7.7 IM GRAN % 0.100 % (Normal) Range: 0.0-0.9 Comments: IG% - Immature Granulocytes (promyelocytes, myelocytes andmetamyelocytes) > 1% indicates that a LEFT SHIFT is Present. BASO% 0.7 % (Normal) Range: 0-1 EO% 3.2 % (Normal) Range: 0-5 MONO% 9.0 % (Normal) Range: 0-10 LY% 37.5 % (Normal) Range: 19-41 NEUT% 49.5 % (Normal) Range: 47-70 MPV 10.2 fL (Normal) Range: 6.2-12.0 PLT 258 K/mm3 (Normal) Range: 150-450 RDW SD 45.2 fL (Abnormal) Range: 35.1-43.9 RDW CV 13.0 % (Normal) Range: 11.6-14.6 MCHC 32.2 {g/gl} (Normal) Range: 32-36 MCH 30.9 pg (Normal) Range: 27.0-32.0 MCV 96.0 fL (Abnormal) Range: 80-94 HCT 40.7 % (Normal) Range: 40-54 HGB 13.1 g/dL (Normal) Range: 13.0-16.5 RBC 4.24 {M/mm3} (Abnormal) Range: 4.6-6.2 WBC 7.4 K/mm3 (Normal) Range: 4.4-11.0 07-Mlh-95870:22 Comp. Metabolic Panel (14) Comments: PATIENT WAS FASTINGPERFORMED BY: [facility]6370 [facility] [id number] ALT (SGPT) 26 [iU]/L (Normal) Range: 0-44 [...] mg/dL (Normal) Range: 65-99 :32 DRUG ASSAY-PHENOBARBITOL (24139) Comments: PATIENT WAS FASTINGPERFORMED BY: [employer] [facility] [id number] Phenobarbital, Serum 18 ug/mL (Normal) Range: 15-40 Comments: Detection Limit = 3 :32 Phenytoin (Dilantin) (84994) Comments: PATIENT WAS FASTINGPERFORMED BY: [employer]70 [facility] [id number] Phenytoin (Dilantin), Serum 12.2 ug/mL (Normal) Range: 10.0-20.0 Comments: Detection Limit = 0.8 <0.8 Indicates None Detected :32 MICROALBUMIN: CREATININE RATIO Comments: PATIENT WAS FASTINGPERFORMED BY: [employer]70 [facility] [id number] (91006) AND (33752) Alb/Creat Ratio <4.3 {mg/g_creat} (Normal) Range: 0.0-30.0 Albumin, Urine <3.0 ug/mL (Normal) Creatinine, Urine 70.5 mg/dL (Normal) :32 METABOLIC PANEL, COMPREHENSIVE Comments: PATIENT WAS FASTINGPERFORMED BY: [employer] [facility] [id number] (63356) ALT (SGPT) 16 [iU]/L (Normal) Range: 0-44 [...] Comments: PATIENT WAS FASTINGPERFORMED BY: MARY ANNE [facility] Kmwzsq1968 [facility] [id number] Information: [id number] (43910) Immature Grans (Abs) 0.0 {x10E3/uL} (Normal) Range: [...] {x10E3/uL} (Normal) Range: 3.4-10.8 :32 HGB A1C (83932) Comments: PATIENT WAS FASTINGPERFORMED BY: [employer] [facility] [id number] Hemoglobin A1c 5.4 % (Normal) Range: 4.8-5.6 Comments: . Pre-diabetes: 5.7 - 6.4 Diabetes: >6.4 Glycemic control for adults with diabetes: <7.0 :32 C-REACT PROT HIGH SENS(hsCRP) Comments: PATIENT WAS FASTINGPERFORMED BY: TextPayMeMober[facility] CenterGrand PerfectaFormerly [facility] [id number] (98723) C-Reactive Protein, Cardiac 7.13 mg/L (Abnormal) Range: 0.00-3.00 Comments: Relative Risk for Future Cardiovascular Event Low <1.00 Average 1.00 - 3.00 High >3.00 :32 Vitamin D Hydroxy (55614) Comments: PATIENT WAS FASTINGPERFORMED BY: [employer] [facility]in [place] [id number] Vitamin D, 25-Hydroxy 50.4 ng/mL (Normal) Range: 30.0-100.0 Comments: Vitamin D deficiency has been defined by the [employer] ofMed[employer] and an Endocrine Society practice guideline as alevel of serum 25-OH vitamin D less than 20 ng/mL (1,2).The Endocrine Society went on to further define vitamin Dinsufficiency as a level between 21 and 29 ng/mL (2).1. IOM ([employer] of [employer]). 2010. Dietary reference intakes for calcium and D. Heart DC: The National AcademConvozine Press.2. Mely MF, Jus NC, Sophie GUARDADO, et al. Evaluation, treatment, and prevention of vitamin D deficiency: an Endocrine Society clinical practice guideline. JCEM. 2010; 96(7):1911-30. 30-Mar-20189:32 LIPID PANEL (70646) Comments: PATIENT WAS FASTINGPERFORMED BY: [employer]. Moore6370 [facility] [id number] LDL/HDL Ratio 1.4 {ratio} (Normal) Range: 0.0-3.6 Comments: LDL/HDL Ratio Men Women 1/2 Avg.Risk 1.0 1.5 Av g.Risk 3.6 3.2 2X Avg.Risk 6.2 5.0 3X Avg.Risk 8.0 6.1 LDL Cholesterol Calc 85 mg/dL (Normal) Range: 0-99 VLDL Cholesterol Chyna 10 mg/dL (Normal) Range: 5-40 HDL Cholesterol 59 mg/dL (Normal) Triglycerides 49 mg/dL (Normal) Range: 0-149 Cholesterol, Total 154 mg/dL (Normal) Range: 100-199 :00 CBC, PLATELETS & AUT DIFF Comments: PATIENT NOT FASTINGPERFORMED BY: [employer] Moore[address] [facility] [id number] ([id number]) Immature Grans (Abs) 0.0 {x10E3/uL} (Normal) Range: [...] 4.14-5.80 WBC 4.5 {x10E3/uL} (Normal) Range: 3.4-10.8 :00 FOLIC ACID SERUM (32168) Comments: PATIENT NOT FASTINGPERFORMED BY: ALOHA [facility] Ldcmqn0170 [facility] [id number] Folate (Folic Acid), Serum 16.2 ng/mL (Normal) Comments: A serum folate concentration of less than 3.1 ng/mL isconsidered to represent clinical deficiency. :00 IRON BINDING CAPACITY (TIBC) Comments: PATIENT NOT FASTINGPERFORMED BY: MooBellaCoNewark Beth Israel Medical CenterBvazyy4527 [facility] [id number] (75143) Iron Saturation 41 % (Normal) Range: 15-55 Iron 86 ug/dL (Normal) Range: 38-169 UIBC 123 ug/dL (Normal) Range: 111-343 Iron Bind.Cap.(TIBC) 209 ug/dL (Abnormal) Range: 250-450 2-May-22593:00 FERRITIN (25142) Comments: PATIENT NOT FASTINGPERFORMED BY: [facility] Jpuwnh2918 [address] [facility] [place] [id number] Ferritin, Serum 122 ng/mL (Normal) Range: 30-400 28-Dec-20179:00 LDH (LD) (LACTATE DEHYDROGENASE) Comments: PATIENT NOT FASTINGPERFORMED BY: [facility] Cynfwg7499 [address] [place] [employer] [place] [id number] (33647) LDH 169 [iU]/L (Normal) Range: 121-224 28-Dec-20179:00 VITAMIN B-12 (CYANOCOBALAMIN) Comments: PATIENT NOT FASTINGPERFORMED BY: [facility] Fymqad0311 [address] [facility] [place] [id number] (07452) Vitamin B12 627 pg/mL (Normal) Range: 232-1245 29-Mte-375047:23 CBC W/AUTO DIFF WBC (73968) Comments: PATIENT NOT FASTINGPERFORMED BY: [facility] Avtfue4220 [address] [facility] Hospitalin [place] [id number] Immature Grans (Abs) 0.0 {x10E3/uL} (Normal) Range: [...] 4.14-5.80 WBC 5.4 {x10E3/uL} (Normal) Range: 3.4-10.8 98-Rfr-975172:23 DRUG ASSAY-PHENOBARBITOL (36958) Comments: PATIENT NOT FASTINGPERFORMED BY: [employer] Bsrvls4029 [facility] [id number] Phenobarbital, Serum 19 ug/mL (Normal) Range: 15-40 Comments: Detection Limit = 3 42-Kzs-683771:23 Phenytoin (Dilantin) (23944) Comments: PATIENT NOT FASTINGPERFORMED BY: [employer] Obuhep8809 [facility] [id number] Phenytoin (Dilantin), Serum 16.7 ug/mL (Normal) Range: 10.0-20.0 Comments: Detection Limit = 0.8 <0.8 Indicates None Detected 28-Mkg-82479:22 CBC W/AUTO DIFF WBC (60263) Comments: PATIENT WAS FASTINGPERFORMED BY: [employer] Sxdtvr2495 [facility] [id number] Immature Grans (Abs) 0.0 {x10E3/uL} (Normal) Range: [...] 4.14-5.80 WBC 4.9 {x10E3/uL} (Normal) Range: 3.4-10.8 10-Vaz-71587:22 DRUG ASSAY-PHENOBARBITOL (23285) Comments: PATIENT WAS FASTINGPERFORMED BY: [employer] Xgmkcx9596 [address] Road[address]ublin [place] [id number] Phenobarbital, Serum 17 ug/mL (Normal) Range: 15-40 Comments: Detection Limit = 3 :22 Phenytoin (Dilantin) (07747) Comments: PATIENT WAS FASTINGPERFORMED BY: ALOHA [facility] Vmibkl0773 [address] Road[address]ublin [place] [id number] Phenytoin (Dilantin), Serum 12.5 ug/mL (Normal) Range: 10.0-20.0 Comments: Detection Limit = 0.8 <0.8 Indicates None Detected :03 Vitamin D Hydroxy (19425) Comments: PATIENT WAS FASTINGPERFORMED BY: ALOHA [facility] Hekvzk7367 [address] Road[address]ublin [place] [id number] Vitamin D, 25-Hydroxy 56.7 ng/mL (Normal) Range: 30.0-100.0 Comments: Vitamin D deficiency has been defined by the [employer] ofMed[employer] and an Endocrine Society practice guideline as alevel of serum 25-OH vitamin D less than 20 ng/mL (1,2).The Endocrine Society went on to further define vitamin Dinsufficiency as a level between 21 and 29 ng/mL (2).1. IOM ([employer] of [employer]). 2009. Dietary reference intakes for calcium and D. Heart [place]: The National Academies Press.2. Mely MF, Jus [place], Sophie GUARDADO, et al. Evaluation, treatment, and prevention of vitamin D deficiency: an Endocrine Society clinical practice guideline. JCEM. 2010; 96(7):1911-30. :03 MICROALBUMIN: CREATININE RATIO Comments: PATIENT WAS FASTINGPERFORMED BY: [employer] [place] [id number]; review 12/21 (51532) AND (44211) Alb/Creat Ratio 3.2 {mg/g_creat} (Normal) Range: 0.0-30.0 Albumin, Urine 3.5 ug/mL (Normal) Creatinine, Urine 108.8 mg/dL (Normal) :03 LIPID PANEL (95697) Comments: PATIENT WAS FASTINGPERFORMED BY: [employer]70 [facility] [id number] LDL/HDL Ratio 1.6 {ratio} (Normal) Range: 0.0-3.6 [...] PANEL, COMPREHENSIVE Comments: PATIENT WAS FASTINGPERFORMED BY: [employer] LabsFormerly [facility] [id number] (14727) ALT (SGPT) 16 [iU]/L (Normal) Range: 0-44 [...] 8-27 Glucose 86 mg/dL (Normal) Range: 65-99 20-Wxh-96812:03 HGB A1C (51525) Comments: PATIENT WAS FASTINGPERFORMED BY: [employer] [facility] [id number] Hemoglobin A1c 5.5 % (Normal) Range: 4.8-5.6 Comments: . Pre-diabetes: 5.7 - 6.4 Diabetes: >6.4 Glycemic control for adults with diabetes: <7.0 82-Phj-20292:11 LIPID PANEL (96546) Comments: PATIENT WAS FASTINGPERFORMED BY: A.C. Moore6370 [facility] [id number] LDL/HDL Ratio 1.5 {ratio_units} (Normal) Range: 0.0-3.6 Comments: LDL/HDL Ratio Men Women 1/2 Avg.Risk 1.0 1.5 Av g.Risk 3.6 3.2 2X Avg.Risk 6.2 5.0 3X Avg.Risk 8.0 6.1 LDL Cholesterol Calc 93 mg/dL (Normal) Range: 0-99 VLDL Cholesterol Chyna 19 mg/dL (Normal) Range: 5-40 HDL Cholesterol 61 mg/dL (Normal) Triglycerides 97 mg/dL (Normal) Range: 0-149 Cholesterol, Total 173 mg/dL (Normal) Range: 100-199 66-Pvu-27400:11 C-REACT PROT HIGH SENS(hsCRP) Comments: PATIENT WAS FASTINGPERFORMED BY: [employer] Dcteiw0176 [facility] [id number] (02524) C-Reactive Protein, Cardiac 4.51 mg/L (Abnormal) Range: 0.00-3.00 Comments: Relative Risk for Future Cardiovascular Event Low <1.00 Average 1.00 - 3.00 High >3.00 :11 DRUG ASSAY-PHENOBARBITOL (32616) Comments: PATIENT WAS FASTINGPERFORMED BY: [employer] Lvwzcx6408 [facility] [id number] Phenobarbital, Serum 19 ug/mL (Normal) Range: 15-40 Comments: Detection Limit = 3 :11 Phenytoin (Dilantin) (99388) Comments: PATIENT WAS FASTINGPERFORMED BY: [employer] Ygbeod0202 [facility] [id number]; review 09/21 Phenytoin (Dilantin), Serum 15.9 ug/mL (Normal) Range: 10.0-20.0 Comments: Detection Limit = 0.8 <0.8 Indicates None Detected :11 METABOLIC PANEL, COMPREHENSIVE Comments: PATIENT WAS FASTINGPERFORMED BY: [employer] Iqdgxw4319 [facility] [id number] (81540) ALT (SGPT) 16 [iU]/L (Normal) Range: 0-44 [...] Glucose, Serum 84 mg/dL (Normal) Range: 65-99 95-Ywk-76701:11 CBC W/AUTO DIFF WBC (07656) Comments: PATIENT WAS FASTINGPERFORMED BY: LabCoNewark [facility] Medical CenterOjqcgo7096 [facility] [id number] Immature Grans (Abs) 0.0 {x10E3/uL} (Normal) Range: [...] 4.14-5.80 WBC 5.3 {x10E3/uL} (Normal) Range: 3.4-10.8 72-Fea-21640:11 Lyme Disease Antibody W/ Comments: PATIENT WAS FASTINGPERFORMED BY: Money360[facility] CenterOdodyn1551 [facility] [id number] Reflex (16904) Lyme IgG/IgM Ab <0.91 {ISR} (Normal) Range: 0.00-0.90 Comments: Negative <0.91 Equivocal 0.91 - 1.09 Positive >1.09 :15 C-Reactive Protein (26918) Comments: PATIENT NOT FASTINGPERFORMED BY: [facility]360[facility]6370 [facility] [id number] C-Reactive Protein, Quant 7.5 mg/L (Abnormal) Range: 0.0-4.9 :15 RHEUMATOID FACTOR-QUANT (41043) Comments: PATIENT NOT FASTINGPERFORMED BY: [facility] LabsNewark Beth Israel Medical CenterFarsac3688 [facility] [id number] RA Latex Turbid. <10.0 {IU/mL} (Normal) Range: 0.0-13.9 8-Njl-762666:15 Lyme Disease Antibody W/ Comments: PATIENT NOT FASTINGPERFORMED BY: [facility]360[facility]6370 [facility] [id number] Reflex (53175) Lyme IgG/IgM Ab <0.91 {ISR} (Normal) Range: 0.00-0.90 Comments: Negative <0.91 Equivocal 0.91 - 1.09 Positive >1.09 76-Mjr-74810:45 CBC W/AUTO DIFF WBC (51612) Comments: PATIENT WAS FASTINGPERFORMED BY: [facility]360[facility]6370 [facility] [id number] Immature Grans (Abs) 0.0 {x10E3/uL} (Normal) Range: [...] 4.14-5.80 WBC 4.9 {x10E3/uL} (Normal) Range: 3.4-10.8 62-Mmn-74464:45 METABOLIC PANEL, COMPREHENSIVE Comments: PATIENT WAS FASTINGPERFORMED BY: LabCoNewark [facility] CenterFnkrdi6021 [facility] [id number] (90638) ALT (SGPT) 40 [iU]/L (Normal) Range: 0-44 [...] (PROSTATE SPECIFIC Comments: PATIENT WAS FASTINGPERFORMED BY: A.C. Moore6370 [employer] [place] [id number] ANTIGEN) (V76.44) Prostate Specific Ag, 2.6 ng/mL (Normal) Range: 0.0-4.0 Serum Comments: [employer] ECLIA methodology. .According to the [employer], Serum PSA shoulddecrease and remain at undetectable levels after radicalprostatectomy. The AUA defines biochemical recurrence as an initialPSA value 0.2 ng/mL or greater followed by a subsequent confirmatoryPSA value 0.2 ng/mL or greater.Values obtained with d ifferent assay methods or kits cannot be usedinterchangeably. Results cannot be interpreted as absolute evidenceof the presence or absence of malignant disease. 29-Rcq-361883:32 DRUG ASSAY-PHENOBARBITOL (03508) Comments: PATIENT WAS FASTINGPERFORMED BY: A.C. Moore6370 [employer] [place] [id number] Phenobarbital, Serum 17 ug/mL (Normal) Range: 15-40 Comments: Detection Limit = 3 45-Bmg-583998:32 Phenytoin (Dilantin) (82201) Comments: PATIENT WAS FASTINGPERFORMED BY: LabCoNewark [facility] Medical CenterBwfnqj8909 [facility] [id number] Phenytoin (Dilantin), Serum 14.8 ug/mL (Normal) Range: 10.0-20.0 Comments: Detection Limit = 0.8 <0.8 Indicates None Detected 33-Mme-654864:32 METABOLIC PANEL, COMPREHENSIVE Comments: PATIENT WAS FASTINGPERFORMED BY: [facility]Co[facility] [facility] CenterTlkqdm8981 [facility] [id number] (49621) ALT (SGPT) 18 [iU]/L (Normal) Range: 0-44 [...] Glucose, Serum 73 mg/dL (Normal) Range: 65-99 86-Ait-496123:32 LIPID PANEL (59145) Comments: PATIENT WAS FASTINGPERFORMED BY: [facility] Dyjkaz7297 [facility] [id number] LDL/HDL Ratio 1.7 {ratio_units} (Normal) Range: 0.0-3.6 Comments: LDL/HDL Ratio Men Women 1/2 Avg.Risk 1.0 1.5 Av g.Risk 3.6 3.2 2X Avg.Risk 6.2 5.0 3X Avg.Risk 8.0 6.1 LDL Cholesterol Calc 100 mg/dL (Abnormal) Range: 0-99 VLDL Cholesterol Chyna 9 mg/dL (Normal) Range: 5-40 HDL Cholesterol 58 mg/dL (Normal) Triglycerides 47 mg/dL (Normal) Range: 0-149 Cholesterol, Total 167 mg/dL (Normal) Range: 100-199 :32 HGB A1C (83081) Comments: PATIENT WAS FASTINGPERFORMED BY: [facility] Zokeaz3008 [facility] [id number] Hemoglobin A1c 5.6 % (Normal) Range: 4.8-5.6 Comments: . Pre-diabetes: 5.7 - 6.4 Diabetes: >6.4 Glycemic control for adults with diabetes: <7.0 :32 Vitamin D Hydroxy (02108) Comments: PATIENT WAS FASTINGPERFORMED BY: [facility] Aoizeo0704 [facility] [id number] Vitamin D, 25-Hydroxy 49.9 ng/mL (Normal) Range: 30.0-100.0 Comments: Vitamin D deficiency has been defined by the [employer]fox ofMedicine and an Endocrine Society practice guideline as alevel of serum 25-OH vitamin D less than 20 ng/mL (1,2).The Endocrine Society went on to further define vitamin Dinsufficiency as a level between 21 and 29 ng/mL (2).1. IOM (Redfox of Medicine). 2010. Dietary reference intakes for calcium and D. Heart [place]: The National Academies Press.2. Mely MF, Jus NC, Sophie GUARDADO, et al. Evaluation, treatment, and prevention of vitamin D deficiency: an Endocrine Society clinical practice guideline. JCEM. 2010; 96(7):1911-30. 28-Xgg-003611:32 C-REACT PROT HIGH SENS(hsCRP) Comments: PATIENT WAS FASTINGPERFORMED BY: MARY ANNE [facility] Hdwiau4855 [facility] [id number] (05781) C-Reactive Protein, Cardiac 7.94 mg/L (Abnormal) Range: 0.00-3.00 Comments: Relative Risk for Future Cardiovascular Event Low <1.00 Average 1.00 - 3.00 High >3.00 8-Dvr-031194:56 Potassium Serum (14161) Comments: PATIENT NOT FASTINGPERFORMED BY: [place] 6858470 [facility] [id number] Information: [id number], 600132 Potassium, Serum 5.2 mmol/L (Normal) Range: 3.5-5.2 25-Atx-000645:29 Potassium Serum (60546) Comments: PATIENT NOT FASTINGPERFORMED BY: [facility]6370 [facility] [id number] Potassium, Serum 5.3 mmol/L (Abnormal) Range: 3.5-5.2 03-Ylq-756025:29 DRUG ASSAY-PHENOBARBITOL (17040) Comments: PATIENT NOT FASTINGPERFORMED BY: [facility]6370 [facility] [id number] Phenobarbital, Serum 21 ug/mL (Normal) Range: 15-40 Comments: Detection Limit = 3 01-Mta-757782:29 Phenytoin (Dilantin) (25403) Comments: PATIENT NOT FASTINGPERFORMED BY: [facility]6370 [facility] [id number] Phenytoin (Dilantin), Serum 13.8 ug/mL (Normal) Range: 10.0-20.0 Comments: : Therapeutic 6.0 - 14.0 . Detectio n Limit = 0.8 <0.8 Indicates None Detected 74-Ujn-452380:29 HEPATITIS C ANTIBODY (28704) Comments: PATIENT NOT FASTINGPERFORMED BY: [facility]6370 [facility] [id number] Hep C Virus Ab <0.1 {s/co_ratio} (Normal) Range: 0.0-0.9 Comments: Negative: < 0.8 Indeterminate: 0.8 - 0.9 Positive: > 0.9 . The CDC recommends that a positive HCV antibody result be followed up with a HCV Nucleic Acid Amplification test (283988). :58 HGB A1C (64252) Comments: PATIENT WAS FASTINGPERFORMED BY: [facility] Dowyyu4478 [facility] [id number] Hemoglobin A1c 5.6 % (Normal) Range: 4.8-5.6 Comments: . Pre-diabetes: 5.7 - 6.4 Diabetes: >6.4 Glycemic control for adults with diabetes: <7.0 :58 CBC W/AUTO DIFF WBC (18873) Comments: PATIENT WAS FASTINGPERFORMED BY: [facility] Qhvesp1941 [facility] [id number] Immature Grans (Abs) 0.0 {x10E3/uL} (Normal) Range: [...] PANEL, COMPREHENSIVE Comments: PATIENT WAS FASTINGPERFORMED BY: [facility]6370 [facility] [id number] (32680) ALT (SGPT) 16 [iU]/L (Normal) Range: 0-44 [...] mg/dL (Normal) Range: 65-99 :58 LIPID PANEL (55433) Comments: PATIENT WAS FASTINGPERFORMED BY: [facility] LabsNewark Beth Israel Medical CenterQfqjjt6740 [facility] [id number] LDL/HDL Ratio 1.6 {ratio_units} Range: 0.0-3.6 (Normal) [...] mmol/L (Normal) Comments: PATIENT NOT FASTINGPERFORMED BY: [facility] LabsHarold Ville 2041270 [facility] [id number] 0:01 Range: 3.5-5.2 :58 C-REACT PROT HIGH SENS(hsCRP) Comments: PATIENT WAS FASTINGPERFORMED BY: [facility]6370 [facility] [id number] (19812) C-Reactive Protein, Cardiac 6.91 mg/L (Abnormal) Range: 0.00-3.00 Comments: Relative Risk for Future Cardiovascular Event Low <1.00 Average 1.00 - 3.00 High >3.00 :28 TESTOSTERONE FREE (58993) Comments: PATIENT NOT FASTINGPERFORMED BY: Money360[place] 9531070 [facility] [id number] BY: [place] 598907 [facility] [id number] Free Testosterone(Direct) 2.7 pg/mL (Abnormal) Range: 6.6-18.1 :38 Phenytoin (Dilantin) (12705) Comments: PATIENT WAS FASTINGPERFORMED BY: [facility]6370 [facility] [id number] Phenytoin (Dilantin), Serum 12.3 ug/mL (Normal) Range: 10.0-20.0 Comments: : Therapeutic 6.0 - 14.0 . Detectio n Limit = 0.8 <0.8 Indicates None Detected :38 Vitamin D Hydroxy (21980) Comments: PATIENT WAS FASTINGPERFORMED BY: [facility]6370 [facility] [id number] Vitamin D, 25-Hydroxy 57.6 ng/mL (Normal) Range: 30.0-100.0 Comments: Vitamin D deficiency has been defined by the Redfox ofMedicine and an Endocrine Society practice guideline as alevel of serum 25-OH vitamin D less than 20 ng/mL (1,2).The Endocrine Society went on to further define vitamin Dinsufficiency as a level between 21 and 29 ng/mL (2).1. IOM (Redfox of Medicine). 2010. Dietary reference intakes for calcium and D. Heart [place]: The National Academies Press.2. Mely MF, Jus CASTILLO, Sophie GUARDADO, et al. Evaluation, treatment, and prevention of vitamin D deficiency: an Endocrine Society clinical practice guideline. JCEM. 2010; 96(7):1911-30. :38 LIPID PANEL (20602) Comments: PATIENT WAS FASTINGPERFORMED BY: LabCoNewark [facility] Medical CenterWsxiyo1008 [facility] [id number] LDL/HDL Ratio 1.3 {ratio_units} (Normal) Range: 0.0-3.6 [...] CREATININE RATIO Comments: PATIENT WAS FASTINGPERFORMED BY: [employer] Ytgych0725 [facility] [id number] (41271) AND (59113) Microalb/Creat Ratio <3.2 {mg/g_creat} (Normal) Range: 0.0-30.0 Microalbumin, Urine <3.0 ug/mL (Normal) Creatinine, Urine 95.2 mg/dL (Normal) :38 METABOLIC PANEL, COMPREHENSIVE Comments: PATIENT WAS FASTINGPERFORMED BY: [facility]6370 [facility] CenterGrand PerfectaFormerly [facility] [id number] (21345) ALT (SGPT) 14 [iU]/L (Normal) Range: 0-44 [...] mg/dL (Normal) Range: 65-99 :38 HGB A1C (25740) Comments: PATIENT WAS FASTINGPERFORMED BY: [facility]Former[facility] [id number] Hemoglobin A1c 5.6 % (Normal) Range: 4.8-5.6 Comments: . Pre-diabetes: 5.7 - 6.4 Diabetes: >6.4 Glycemic control for adults with diabetes: <7.0 :38 C-REACT PROT HIGH SENS(hsCRP) Comments: PATIENT WAS FASTINGPERFORMED BY: [facility]6370 [facility] [id number] (96964) C-Reactive Protein, Cardiac 16.47 mg/L (Abnormal) Range: 0.00-3.00 Comments: Relative Risk for Future Cardiovascular Event Low <1.00 Average 1.00 - 3.00 High >3.00 :28 PSA (PROSTATE SPECIFIC Comments: PATIENT NOT FASTINGPERFORMED BY: [employer] [facility] [id number] BY: [address] [id number] ANTIGEN) (V76.44) Prostate Specific Ag, 1.6 ng/mL (Normal) Range: 0.0-4.0 Serum Comments: [employer] ECLIA methodology. .According to the [employer] Association, Serum PSA shoulddecrease and remain at undetectable levels after radicalprostatectomy. The AUA defines biochemical recurrence as an initialPSA value 0.2 ng/mL or greater followed by a subsequent confirmatoryPSA value 0.2 ng/mL or greater.Values obtained with d ifferent assay methods or kits cannot be usedinterchangeably. Results cannot be interpreted as absolute evidenceof the presence or absence of malignant disease. 1-Hmg-616975:28 Phenytoin (Dilantin) Comments: PATIENT NOT FASTINGPERFORMED BY: [facility]6370 [facility] [id number] BY: Lab[address] [id number] (76290) Phenytoin (Dilantin), Serum 18.8 ug/mL (Normal) Range: 10.0-20.0 Comments: : Therapeutic 6.0 - 14.0 . Detectio n Limit = 0.8 <0.8 Indicates None Detected :24 Phenytoin (Dilantin) Comments: PATIENT NOT FASTINGPERFORMED BY: [facility]6370 [facility] [id number] Information: [id number] (31258) Phenytoin (Dilantin), Serum 15.8 ug/mL (Normal) Range: 10.0-20.0 Comments: : Therapeutic 6.0 - 14.0 . Detectio n Limit = 0.8 <0.8 Indicates None Detected :19 Phenytoin (Dilantin) (08602) Comments: Order Date: 04/08/16Order Date: 04/08/16Time Medication is to be Given? [facility] [address]jkvp[address] [place], [place], [address] PHENYTOIN 21.2 mL (Abnormal) Range: 10.0-20.0 Comments: Resulst Called to Charline 04/08/16 at 1450 by Alexander Capital InvestmentsZER.Results read back by Charline. :34 CBC W/Diff, Automated Comments: [facility] [address]xbfvfl[address] [place], [place], [id number] Absolute Lymph 2.34 {X10_3/ul} (Normal) Range: 0.83-4.51 [...] 4.6-6.2 WBC 6.2 K/mm3 (Normal) Range: 4.4-11.0 98-Csq-653303:34 Comprehensive Metabolic Profil Comments: [facility] Kzkerllpyv[address] [place], [place], [id number] GAP 4 (Abnormal) Range: 5-15 CO2 31.0 [...] 7-18 GLU 75 mg/dL (Normal) Range: 70-110 49-Kmb-651328:34 Magnesium Comments: [facility] [address] [place], [address] MG 2.2 mg/dL (Normal) Range: 1.8-2.4 60-Jfw-988671:34 Phenobarbital Comments: Time Medication is to be Given? 0000[facility] Br[address]fazy[address] [place], [address] PHENOBARB 22.0 ug/mL (Normal) Range: 10.0-40.0 66-Eny-736453:34 Phenytoin (Dilantin) Level Comments: Time Medication is to be Given? 0000[facility] [address] [place], [address] PHENYTOIN 28.3 mL (Abnormal) Range: 10.0-20.0 Comments: Critical Result(s) Called at: 14:19:48 04/07/2016 by: Katlin kahn at [facility] 88-Uaq-980193:34 Thyroid Stim Hormone (TSH) Comments: [facility] [address] [place], [place], [id number](475) TSH 1.55 {uIU/mL} (Normal) Range: 0.358-3.74 :34 Vitamin B12 1009 pg/mL (Abnormal) Comments: [facility] Nwpdeociuw[address] [place], [phone] Range: 211-911 :11 CBC W/Diff, Automated Comments: [facility] [address]cfcavwdpu[address] [place], [id number] Absolute Lymph 1.51 {X10_3/ul} (Normal) Range: 0.83-4.51 [...] Range: 4.4-11.0 :11 Comprehensive Metabolic Profil Comments: [facility] Pztidsuhdi[address] [place], [id number] GAP 7 (Normal) Range: 5-15 CO2 25.0 [...] 7-18 GLU 82 mg/dL (Normal) Range: 70-110 59-Zdb-25381:11 Lipid Profile Comments: [facility] Q[address]ylgqt[address] [place], [place], [address] VLDL 10 mg/dL (Normal) Range: 5-40 LDL [...] Comments: Time Medication is to be Given? 0000[facility] [address] [place], [id number] PHENOBARB 19.8 ug/mL (Normal) Range: 10.0-40.0 :11 Phenytoin (Dilantin) Level Comments: Time Medication is to be Given? 0000[facility] [address] [place], [address] PHENYTOIN 17.4 mL (Normal) Range: 10.0-20.0 :11 Vitamin D,25 Hydroxy Comments: [facility] [address] [place], [address] Vitamin D 25-OH 42.5 ng/mL (Normal) Comments: Vitamin D 25(OH) Status Range Deficiency <20 ng/mL (50nmol/L) Insuffciency 20 - 30 ng/mL (50 - 75 nmol/L) Sufficiency 30 - 100 ng/mL (75 - 250 nmol/L) Toxicity >100 ng/mL (>250 nmol/L) :15 COLON BIOPSY (CHOOSE See Note (Normal) Comments: [facility] Mr[address]bur[address] [place], [phone] SITE) Comments: Patient: CHELI NEUMANN : 1950 (64/M) Acct Num: [id number] Phys: Landon Werner Unit Num: [id number] Loc: LABSPEC Specimen: [id number] Received: 11/04/15 - 3216 Spec Type: C OLON BX TISSUES TISSUES: GROSS DESCRIPTION Received is one container labeled with the patient name and designated polyp transverse colon. The specimen consists of multiple irregula r fragments of light caballero soft tissue that in aggregate measure 0.4 x 0.4 x 0.1 cm. The specimen is totally submitted in one cassette. / CHRISTIN:desirae 05/01/16 TC:1 CPT: 77016 HEADER OPERATION: Colonoscopy with biopsy PRE-OP DIAGNOSIS: History of polyps TISSUE SUBMITTED: Polyp transverse colon, rule out adenoma MICROSCOPIC DESCRIPTION Slides are reviewed. MICROSCOPIC DIAGNOSIS Polyp trans verse colon, biopsy: Fragments of tubular adenoma. SJ:whit 11/06/15 Signed Tanner Carey 11/06/15 <signature on file> :13 Lipid Profile Comments: [facility] [address] [place], [place], [phone] VLDL 13 mg/dL (Normal) Range: 5-40 LDL [...] Comments: Time Medication is to be Given? 2099[facility] [address] [place], [place], [phone] PHENOBARB 19.2 ug/mL (Normal) Range: 10.0-40.0 :13 Phenytoin (Dilantin) Level Comments: Time Medication is to be Given? 2099[facility] [address] [place], [address] PHENYTOIN 19.8 mL (Normal) Range: 10.0-20.0 :13 Vitamin D,25 Hydroxy Comments: [facility] [address] [place], [place], [phone] Vitamin D 25-OH 30.7 ng/mL (Normal) Comments: Vitamin D 25(OH) Status Range Deficiency <20 ng/mL (50nmol/L) Insuffciency 20 - 30 ng/mL (50 - 75 nmol/L) Sufficiency 30 - 100 ng/mL (75 - 250 nmol/L) Toxicity >100 ng/mL (>250 nmol/L); ADDENDA: non-emergent till apt :11 CBC W/Diff, Automated Comments: Test performed at:[facility] [address] [place], [place] [id number] ; will reivew at 02/17 appt Absolute [...] :11 Comprehensive Metabolic Profil Comments: Test performed at:[facility] [address]iavtshvk5696 [place] [address] GAP 6 (Normal) Range: 5-15 CO2 25.0 [...] 70-110 :11 Lipid Profile Comments: Test performed at:[facility] Nufpttzmyr5352 [place], [place] [phone] VLDL 12 mg/dL (Normal) Range: 5-40 LDL [...] Medication is to be Given? ??2000Test performed at:[facility] [address] ??[place], [place] ??[phone] PHENOBARB 19.4 ug/mL (Normal) Range: 10.0-40.0 :11 Phenytoin (Dilantin) Level Comments: Time Medication is to be Given? 2000Test performed at:[facility] [address] [place] [address] PHENYTOIN 18.1 ug/mL (Normal) Range: 10.0-20.0 :11 PSA,Total - Annual Screen Comments: Test performed at:[facility] [address] [place] [address] PSA,TOT SCREEN 2.27 ng/mL (Normal) Range: 0.00-4.00 Comments: This test was performed using the TPSA assay method for theSnapbridge Software chemistry system. Values obtained with differentassay methods cannot be used interchangably.When changing PSA assays in the course of monitoring apatient, additional sequential testing should be carriedout to confirm baseline values. :11 Vitamin D,25 Hydroxy Comments: Test performed at:[facility] [address] [place] [address] Vitamin D 25-OH 34.3 ng/mL (Normal) Comments: Vitamin D 25(OH) Status Range Deficiency <20 ng/mL (50nmol/L) Insuffciency 20 - 30 ng/mL (50 - 75 nmol/L) Sufficiency 30 - 100 ng/mL (75 - 250 nmol/L) Toxicity >100 ng/mL (>250 nmol/L) :04 Phenobarbital Comments: Has pt arrived? YTime Medication is to be Given? 0000Test performed at:[facility] [address] [place] [address] PHENOBARB 18.5 ug/mL (Normal) Range: 10.0-40.0 :04 Phenytoin (Dilantin) Level Comments: Has pt arrived? YTime Medication is to be Given? 0000Test performed at:[facility] [address] [place] [address] PHENYTOIN 16.3 ug/mL (Normal) Range: 10.0-20.0 7-Sbg-352554:28 Phenytoin (Dilantin) Level Comments: CRITICAL VALUE REPEATED AND VERIFIED. CALLED TO Khurram DICKSON09/06/14 [facility]4 Klely Moya.RESULTS READ BACK BY SAME.Time Medication is to be Given? 1000Test performed at:[facility] Labo [address] [place] [address] PHENYTOIN 22.4 ug/mL (Abnormal) Range: 10.0-20.0 :19 CBC W/Diff, Automated Comments: Has pt arrived? YTest performed at:[facility] [address] ??[place], [place] ??[address] Absolute Lymph 1.89 {X10_3/ul} (Normal) Range: [...] Profil Comments: Has pt arrived? YTest performed at:[facility] [address]em[address]cl[address] [place] [address] GAP 5 (Normal) Range: 5-15 CO2 27.0 [...] Profile Comments: Has pt arrived? YTest performed at:[facility] [address]xfomw[address] [place] [address] VLDL 12 mg/dL (Normal) Range: 5-40 LDL [...] 200-240 mg/dL Borderline >240 mg/dL High Risk 06-Sep-20147:19 Vitamin D,25 Hydroxy Comments: Has pt arrived? YTest performed at:[facility] [address] [place] [address] Vitamin D 25-OH 31.9 ng/mL (Normal) Comments: Vitamin D 25(OH) Status Range Deficiency <20 ng/mL (50nmol/L) Insuffciency 20 - 30 ng/mL (50 - 75 nmol/L) Sufficiency 30 - 100 ng/mL (75 - 250 nmol/L) Toxicity >100 ng/mL (>250 nmol/L) 2-Lqu-787038:46 Aerobic Bacterial Culture Comments: PATIENT NOT FASTINGPERFORMED BY: LabPassportParkingHarold [place]ille 2041270 [facility] [id number] Result 1 Mixed skin olivia (Normal) Aerobic Bacterial Culture Final report (Normal) 29-Mar-20147:07 DRUG ASSAY-PHENOBARBITOL Comments: PATIENT NOT FASTINGPERFORMED BY: LabCoNewark [facility] Medical CenterKhpcao8487 [facility] [id number] Information: [id number],NO DRAW FEE (81485) Phenobarbital, Serum 15 ug/mL (Normal) Range: 15-40 Comments: Detection Limit = 2 <2 indicates None Detected 11-Ljv-788626:33 DRUG ASSAY-PHENOBARBITOL Comments: PATIENT NOT FASTINGPERFORMED BY: Lab[address] [id number] Information: [id number] (38797) Pentobarbital None Detected ug/mL (Normal) Range: 1-5 [...] CHOL 158 mg/dL (Normal) Comments: <200 mg/dL Qqhkmqjbr978-162 mg/dL Borderline>240 mg/dL High Risk :16 PSA 1.08 ng/mL (Normal) Range: 0.00-4.00 Comments: This test was performed using the TPSA assay method for theCareSharePeel-Works chemistry system. Values obtained with differentassay methods [...] >100 ng/mL (>250 nmol/L) :33 Rapid Flu (70316 x 2) Comments: neg Influenza A Ag [...] CHOL 169 mg/dL (Normal) Comments: <200 mg/dL Icgajlkgw939-806 mg/dL Borderline>240 mg/dL High Risk TRIG 58 [...] - 250 nmol/L)Toxicity >100 ng/mL (>250 nmol/L) 24-Krh-494052:13 DEXA BONE DENSITY STUDY (HP) Radiology Report [...] is considered osteoporotic, as outlined above, according toWorld Health Organization (WHO) cri teria. Fracture risk [...] Cunha M.D.September 26, 2012 at 4:13:45 PM [id number] Signed GP/GP If you are the referring physician and would like to consult with theradiologist who provided this interpretation, please contact Connie Gutiérrez at [phone]. If this radiologist is unavailable, youwill be directed to [facility] radiologist to assist. If you are a patient with a question regarding this report, pleasecontactyour referring physician directly. Professional Interpretation Provided By: [employer], Phone , These documents contain legally protected [...] destructionofthese documents. Dictated on 09/26/12 1528 by Rozina Cunha MDranscribed on 09/26/12 1632 by ITS IMPORTSign by Charbel Cunha MD on 09/26/12 1633 Sign by: Charbel Cunha MD 03-Sse-32306:07 CBCMD RBCM NORM C+C {NORMAL} (Normal) PE [...] 7-18 GLU 95 mg/dL (Normal) Range: 70-110 : DIL 17.5 ug/mL (Normal) Range: 10.0-20.0 :07 [...] D deficiency has been defined by the [employer] ofMedicine and an Endocrine Society practice guideline as alevel of serum 25-OH vitamin D less than 20 ng/mL (1,2).The Endocrine Society went on to further define vitamin Dinsufficiency as a level between 21 and 29 ng/mL (2).1. IOM (Redfox of Medicine). 2010. Dietary reference intakes for calcium and D. Heart [place]: The National Academies Press.2. Mely MARIA, Jus CASTILLO, Sophie GUARDADO, et al. Evaluation, treatment, and prevention of vitamin D deficiency: an Endocrine Society clinical practice guideline. JCEM. 2010; 96(7): 1911-30.Performed at: - [facility] [address] [id number] Director: Keith Nance PhD, Phone: [phone] :[phone] DIL 12.4 ug/mL (Normal) Range: 10.0-20.0 [...] D deficiency has been defined by the [employer]fox ofMedicine and an Endocrine Society practice guideline as alevel of serum 25-OH vitamin D less than 20 ng/mL (1,2).The Endocrine Society went on to further define vitamin Dinsufficiency as a level between 21 and 29 ng/mL (2).1. IOM (Redfox of Medicine). 2010. Dietary reference intakes for calcium and D. Heart [place]: The National Academies Press.2. Mely MF, Jus NC, Sophie GUARDADO, et al. Evaluation, treatment, and prevention of vitamin D deficiency: an Endocrine Society clinical practice guideline. JCEM. 2010; 96(7): 1911-30.Performed at: [address] [id number] Director: Jacquelyn Charles MD, Phone: [phone] 82-Ndj-040051:28 LOWER EXT.JOINT ONLY (ROUTINE) Radiology Report See [...] Go M.D.December 24, 2011 at 8:26:04 PM ODALYSTElecchester county hospitalgold anthony Signed DAVIDE/DAVIDE Professional Interpretation Provided By: [facility], , To consult with a radiologist regarding this report, please call our 2 2S9ryutemu line @ Dictated on 12/24/11 1335 by Tomas Go MDTranscribed on 12/24/11 2030 by ITS IMPORTSign by Tomas Go MD on 12/24/112030 Sign by: Tomas Go MD 06-Jul-20117:08 CBCD,SMEAR DIFF RED CELL MORPH SeeNote {NORMAL} [...] ng/mL (Normal) Range: 0.0-4.0 :08 TEST FR [id number] 5.0 pg/mL (Abnormal) Range: 6.6-18.1 Comments: Performed at: [employer] [address] [id number] Director: Jacquelyn Charles MD, Phone: [phone] at: [facility] 9Mile LabsLarry Ville [address]Tsz Director: Joseph Sevilla MD, Phone: [phone] :[phone] TSH 0.98 {uIU/mL} (Normal) Range: 0.358-3.74 :08 VIT D,25 36116 30.9 ng/mL (Abnormal) Range: 32.0-100.0 Comments: Effective July 19, 2011 Vitamin D, 25-Hydroxy reference intervals will be changing to 30-100. .Recent studies consider the lower li alta of 32.0 ng/mL to be athreshold for optimal health.Horace ROBLES. J Nutr. 2004;135(2):317-22. 0-Wrp-673433:57 DEXA BONE DENSITY STUDY (HP) Radiology Report See Note (Normal) Comments: Exam Number: [id number] LINICAL:This is a 59-year-old male patient with history of osteopenia. EXAMINATION:DUAL ENERGY X-RAY ABSORPTIOMETRY / DEXA. TECHNIQUE:Bone Density Measurements (BMD) of lumbar spi ne and bilateral hips were obtained using a goodideazs scanner.. COMPARISON:Comparison is made with prior examination [...] Osteoporosis Foundation http://www.nof.org Reported By: CHARBEL CUNHA 21-Dbb-380590:52 CHEST, PA AND LATERAL (MT) Radiology Report See Note (Normal) Comments: Exam Number: [id number] LINICAL:59-year-old male complains of shortness of breath. [...] 3.7 mg/dL (Normal) Range: 2.5-4.9 :35 :35 PROT.[id number] GAMMA GLOB,U 19.7 % (Normal) M-SPIKE,U SeeNote % (Normal) Comments: Result: Not Observed NOTE Comment (Normal) Comments: Protein electrophoresis scan will follow via computer,mail, or pin feather machine operator delivery. ALBUMIN,UR 26.3 % (Normal) UKNDX-5-KWBA,U 2.7 % (Normal) ZAMDR-8-GLXK,U 12.9 % (Normal) BETA GLOB,U 38.4 % (Normal) PROTEIN,UR 6.2 mg/dL (Normal) Range: 0.0-15.0 :35 PTH,Intact 42 pg/mL (Normal) Range: 14-72 :35 SPE [id number] A/G RATIO 1.4 (Normal) Range: 0.7-2.0 INTERPRETATION Comment (Normal) Comments: The SPE pattern appears essentially unremarkable. Evidenceof monoclonal protein is not apparent.Protein electrophoresis scan will follow via computer,mail, or pin feather machine operator delivery. ALBUMIN 3.9 g/dL (Normal) Range: 3.2-5.6 ALPHA-1 GLOBUL 0.3 g/dL (Normal) Range: 0.1-0.4 ALPHA-2 GLOBUL 0.7 g/dL (Normal) Range: 0.4-1.2 BETA GLOBULIN 0.8 g/dL (Normal) Range: 0.6-1.3 GAMMA GLOBULIN 0.9 g/dL (Normal) Range: 0.5-1.6 GLOBULIN, TOTAL 2.7 g/dL (Normal) Range: 2.0-4.5 M-SPIKE SeeNote g/dL (Normal) Comments: Result: Not Observed PROTEIN,TOTAL 6.6 g/dL (Normal) Range: 6.0-8.5 :35 TEST FR [id number] 3.4 pg/mL (Abnormal) Range: 6.6-18.1 :35 TSH 0.89 {uIU/mL} (Normal) Range: 0.358-3.74 :35 VIT D,25 49084 35.5 ng/mL (Normal) Range: 32.0-100.0 Comments: Recent studies consider the lower limit of 32.0 ng/mL to harsh threshold for optimal health.Horace ROBLES. J Nutr. 2004;135(2):317-22.Performed at: [facility] [address] [address]Lab Director: Jacquelyn Charles MD, Phone: [phone] at: [facility] [address] [id number] Director: Joseph Sevilla MD, Phone: [phone] Plan of Care Name Dates Details Instructions Coronary artery disease : Eprescribed prescriptions (G8553) Indication: Coronary artery disease mdvip wellness exam : Eprescribed prescriptions (G8553) [...] Indication: Seizure disorder Planned Observations DRUG ASSAY-PHENOBARBITOL (53639)Indication: Generalized convulsive seizure On: : Request Phenytoin (Dilantin) (25823)Indication: Generalized convulsive seizure On: :04 Request LIPID PANEL ([id number])Indication: Bilateral carotid artery stenosis On: :03 Request C-REACT PROT HIGH SENS(hsCRP) (92637)Indication: Elevated high sensitivity C-reactive protein On: :03 Request CBC with auto diff ([id number])Indication: Elevated hemoglobin A1c On: : Request MICROALBUMIN: CREATININE RATIO (73395) AND (35496)Indication: Elevated hemoglobin A1c On: :02 Request METABOLIC PANEL, COMPREHENSIVE (51080)Indication: Elevated hemoglobin A1c On: :02 Request HGB A1C (32316)Indication: Elevated hemoglobin A1c On: : Request Phenytoin (Dilantin) (06576)Indication: Generalized convulsive seizure On: :40 Request CBC with auto diff (47187)Indication: Anemia On: :40 Request METABOLIC PANEL, COMPREHENSIVE (56274)Indication: Elevated hemoglobin A1c On: :39 Request DRUG ASSAY-PHENOBARBITOL (27262)Indication: Generalized convulsive seizure On: 88-Lsx-505249:38 Request FECAL OCCULT- Tubes sent home (75997)Indication: Anemia On: :31 Request IRON (49551)Indication: Anemia On: :31 Request LIPID PANEL (19058)Indication: Hyperlipidemia On: 05-Igc-018985:30 Request METABOLIC PANEL, COMPREHENSIVE (69724)Indication: Elevated hemoglobin A1c On: :29 Request HGB A1C (34106)Indication: Elevated hemoglobin A1c On: 16-Mgs-270792:29 Request HGB A1C (83216)Indication: Prediabetes On: :17 Request CBC with auto diff (46014)Indication: Generalized convulsive seizure On: :13 Request C-REACT PROT HIGH SENS(hsCRP) (92272)Indication: Elevated high sensitivity C-reactive protein On: :13 Request LIPID PANEL (27960)Indication: Bilateral carotid artery stenosis On: :12 Request METABOLIC PANEL, COMPREHENSIVE (68574)Indication: Bilateral carotid artery stenosis On: 5-Npw-209620:12 Request Phenytoin (Dilantin) (25787)Indication: Generalized convulsive seizure On: 4-Euo-651142:00 Request Comments: 1 month Metabolic Panel, Basic (75301)Indication: Dizziness On: 5-Sbf-386762:14 Request DRUG ASSAY-TOT PHENYTOIN (90412)Indication: Poisoning by phenytoin, accidental or unintentional, subsequent encounter On: 65-Nrz-535947:35 Request Magnesium (67815)Indication: Dizziness On: 90-Lgc-936848:28 Request Comments: stat CBC W/AUTO DIFF WBC (28201)Indication: Dizziness On: :28 Request Comments: stat TSH (22481)Indication: Dizziness On: 77-Rmb-026048:22 Request Comments: stat METABOLIC PANEL, COMPREHENSIVE (61539)Indication: Dizziness On: 99-Fpy-423645:22 Request Comments: stat DRUG ASSAY-PHENOBARBITOL (12314)Indication: Dizziness On: 84-Yfm-658421:18 Request Comments: stat Phenytoin (Dilantin) (62068)Indication: Dizziness On: 06-Sqw-113070:18 Request Comments: stat VITAMIN B-12 (CYANOCOBALAMIN) (64065)Indication: Dizziness On: :13 Request DRUG ASSAY-PHENOBARBITOL (97490)Indication: Seizure disorder On: : Request Phenytoin (Dilantin) (06582)Indication: Seizure disorder On: : Request PSA (PROSTATE SPECIFIC ANTIGEN) (V76.44)Indication: Screening for prostate cancer On: : Request METABOLIC PANEL, COMPREHENSIVE (70565)Indication: Bilateral carotid artery stenosis On: :24 Request LIPID PANEL ([id number])Indication: Bilateral carotid artery stenosis On: :24 Request Vitamin D Hydroxy (40197)Indication: Vitamin D deficiency, unspecified On: : Request Phenytoin (Dilantin) ([id number])Indication: Seizure disorder On: :09 Request DRUG ASSAY-PHENOBARBITOL ([id number])Indication: Seizure disorder On: 01-Kcv-612403:09 Request PSA (PROSTATE SPECIFIC ANTIGEN) (V76.44)Indication: Encounter for screening for malignant neoplasm of prostate (Renamed from Screening for prostate cancer) On: 20-Por-272278:09 Request CBC W/AUTO DIFF WBC ([id number])Indication: Seizure disorder On: 68-Adw-295370:09 Request METABOLIC PANEL, COMPREHENSIVE (60245)Indication: Seizure disorder On: 34-Eya-699484:09 Request LIPID PANEL (01482)Indication: Bilateral carotid artery stenosis On: 12-Pis-036677:09 Request Vitamin D Hydroxy (00754)Indication: Vitamin D deficiency, unspecified On: 55-Eli-167183:08 Request METABOLIC PANEL, COMPREHENSIVE (12422)Indication: Osteoporosis On: 66-Xww-928927:08 Request LIPID PANEL (21696)Indication: Bilateral carotid artery stenosis On: :52 Request DRUG ASSAY-PHENOBARBITOL (89906)Indication: Seizure disorder On: :52 Request Phenytoin (Dilantin) (75098)Indication: Seizure disorder On: 99-Pwi-207341:51 Request Vitamin D Hydroxy (39608)Indication: Vitamin D deficiency, unspecified On: :51 Request DRUG ASSAY-PHENOBARBITOL (08877)Indication: Seizure disorder On: :10 Request PSA (PROSTATE SPECIFIC ANTIGEN) (V76.44)Indication: Screening for prostate cancer On: :10 Request CBC W/AUTO DIFF WBC (81522)Indication: Seizure disorder On: :09 Request METABOLIC PANEL, COMPREHENSIVE (11398)Indication: Seizure disorder On: : Request LIPID PANEL (27139)Indication: Bilateral carotid artery stenosis On: :09 Request Phenytoin (Dilantin) (78392)Indication: Seizure disorder On: :06 Request Vitamin D Hydroxy (41251)Indication: Osteoporosis On: :00 Request DRUG ASSAY-PHENOBARBITOL (62311)Indication: Seizure disorder On: :49 Request Phenytoin (Dilantin) (09603)Indication: Seizure disorder On: :49 Request Phenytoin (Dilantin) ([id number])Indication: Cardiac dysrhythmia On: :01 Request Culture, Aerobic, Bacterial ID ([id number])Indication: Sebaceous cyst of ear On: 1-Oea-823472:55 Request CBC WITH MANUAL DIFF ([id number])Indication: Seizure disorder On: :49 Request METABOLIC PANEL, COMPREHENSIVE (24306)Indication: Osteoporosis On: :49 Request LIPID PANEL (52870)Indication: Bilateral carotid artery stenosis On: :49 Request Vitamin D Hydroxy (52712)Indication: Vitamin D deficiency, unspecified On: :46 Request CBC WITH MANUAL DIFF (04001)Indication: Seizure disorder On: :02 Request METABOLIC PANEL, COMPREHENSIVE (13084)Indication: Seizure disorder On: :02 Request LIPID PANEL (65138)Indication: Bilateral carotid artery stenosis On: :02 Request Phenytoin (Dilantin) ([id number])Indication: Seizure disorder On: :01 Request Vitamin D Hydroxy (86664)Indication: Vitamin D deficiency, unspecified On: :59 Request PSA (PROSTATE SPECIFIC ANTIGEN) (V76.44)Indication: Screening for prostate cancer On: 63-Hcp-89086:57 Request Phenytoin (Dilantin) (16142)Indication: Seizure disorder On: 27-Ftk-332734:03 Request CBC WITH MANUAL DIFF (64094)Indication: Osteoporosis On: 72-Jty-129919:03 Request METABOLIC PANEL, COMPREHENSIVE (85108)Indication: Osteoporosis On: 56-Hqg-520781:03 Request LIPID PANEL (97109)Indication: Bilateral carotid artery stenosis On: 76-Cpa-621495:03 Request Vitamin D Hydroxy (21746)Indication: Vitamin D deficiency, unspecified On: 68-Ouv-838067:02 Request TSH ([id number])Indication: Osteoporosis On: 00-Ije-971940:02 Request DRUG ASSAY-PHENOBARBITOL (25551)Indication: Seizure disorder On: 80-Xit-482320:49 Request CBC with manual diff ([id number])Indication: Encounter for long-term (current) use of medications On: 34-Cfy-671603:47 Request Metabolic Panel, Comprehensive (68848)Indication: Encounter for long-term (current) use of medications On: 58-Mjy-062050:47 Request Lipid Panel (73903)Indication: Encounter for long-term (current) use of medications On: 20-Pqe-454365:47 Request PSA (PROSTATE SPECIFIC ANTIGEN) (12097)Indication: Screening for prostate cancer On: 40-Rez-641273:47 Request Phenytoin (Dilantin) (41614)Indication: Seizure disorder On: 81-Zmk-747634:45 Request CALCIFEDIOL (22984)Indication: Vitamin D deficiency, unspecified On: 78-Sji-893220:44 Request DRUG ASSAY-PHENOBARBITOL (97656)Indication: Encounter for long-term (current) use of medications On: 94-Mxa-87440:32 Request DRUG ASSAY-PHENOBARBITOL ([id number])Indication: Encounter for long-term (current) use of medications On: 17-Nqq-291729:58 Request Vitamin D Hydroxy (67215)Indication: Vitamin D deficiency, unspecified On: 58-Idy-240359:32 Request METABOLIC PANEL, COMPREHENSIVE (28680)Indication: Seizure disorder On: 90-Wej-796529:32 Request CBC WITH MANUAL DIFF ([id number])Indication: Seizure disorder On: :32 Request Phenytoin (Dilantin) ([id number])Indication: Seizure disorder On: 04-Zcb-328921:32 Request Phenytoin (Dilantin) ([id number])Indication: Seizure disorder On: 88-Vgw-994284:12 Request Phenytoin (Dilantin) (06451)Indication: Seizure disorder On: 33-Rvz-170545:05 Request Comments: 2 weeks PSA (PROSTATE SPECIFIC ANTIGEN) (V76.44)Indication: Screening for prostate cancer On: :30 Request TESTOSTERONE FREE (57021)Indication: Testicular hypofunction On: :29 Request LIPID PANEL (12211)Indication: Hypoglycemia On: :28 Request Vitamin D Hydroxy (01585)Indication: Vitamin D deficiency, unspecified On: : Request TSH ([id number])Indication: Osteoporosis On: : Request CBC WITH MANUAL DIFF (25514)Indication: Seizure disorder On: : Request METABOLIC PANEL, COMPREHENSIVE (37231)Indication: Seizure disorder On: :27 Request Phenytoin (Dilantin) ([id number])Indication: Seizure disorder On: : Request CBC WITH MANUAL DIFF ([id number])Indication: Osteoporosis On: 00-Dnl-696173:09 Request METABOLIC PANEL, COMPREHENSIVE (02038)Indication: Seizure disorder On: 52-Bat-183847:09 Request TESTOSTERONE FREE ([id number])Indication: Testicular hypofunction On: 70-Ydx-730444:57 Request Vitamin D Hydroxy (42620)Indication: Vitamin D deficiency, unspecified On: 45-Psy-561188:57 Request Phenytoin (Dilantin) ([id number])Indication: Seizure disorder On: 19-Jqb-678371:03 Request TESTOSTERONE FREE (72593)Indication: Osteoporosis On: 77-Acv-355398:09 Request Vitamin D Hydroxy ([id number])Indication: Osteoporosis On: 31-Lwg-241085:03 Request TSH ([id number])Indication: Osteoporosis On: 49-Uzd-611435:03 Request UPEP ([id number])Indication: Osteoporosis On: 57-Xyu-394766:03 Request SPEP ([id number])Indication: Osteoporosis On: 22-Kqn-723835:03 Request PHOSPHORUS ([id number])Indication: Osteoporosis On: 22-Hyg-451168:03 Request PARATHORMONE ([id number])Indication: Osteoporosis On: 89-Nza-193626:03 Request Planned Encounters Medical; PETE 3 Month FU - On: 29-Sep-2018 9:45 [facility] Fast DO, Jessica A Fast DO, Jessica A Planned Procedures ELECTROCARDIOGRAM, COMPLETE (ECG) On: 28-Jun-2018 Intent (41901)By: Fast DO, Jessica A Fast DO, Comments: ekg showed normal sinus rhythym, normal axis, no acute st/t wave changes sinus lokesh Jessica A Flu Vaccine (Quadrivalent) 32624Nt: On: 14-Jun-2018 Intent Fast DO, Jessica A Fast DO, Jessica A Comments: Lot #[id number]/30/2019Site-L dltd, IMDose prefilled syringegiven by: Yuly reviewed and ABN signed Radiology - Lumbar SpineBy: Fast DO, On: 21-Mar-2018 Intent Jessica A Fast DO, Jessica A Cartoid DopplerBy: Fast DO, Jessica A On: 21-Dec-2017 Intent Fast DO, Jessica A ELECTROCARDIOGRAM, COMPLETE (ECG) On: 20-Jun-2017 Intent ([id number])By: Fast DO, Jessica A Fast DO, Comments: ekg showed normal sinus rhythym, normal axis, no acute st/t wave changes junctional lokesh Jessica A Ultrasound - ThyroidBy: Fast DO, On: 20-Jun-2017 Intent Jessica A Fast DO, Jessica A Flu Vaccine (Quadrivalent) [id number]: On: 20-Jun-2017 Intent Fast DO, Jessica A Fast DO, Jessica A Comments: Lot #[id number]/13/18ite-L dltd, IMDose prefilled syringegiven by:Paramjit, NIYANVIS and ABN signed Radiology - Finger(s) - RightBy: Fast On: 15-Mar-2017 Intent DO, Jessica A Fast DO, Jessica A Comments: attn 2nd and 3 rd digit Radiology - Knee - Right - Weight On: 15-Mar-2017 Intent BearingBy: Fast DO, Jessica A Fast DO, Jessica A DEXA SCAN AXIAL SKELETON ([id number])By: On: 05-Nov-2016 Intent Fast DO, Jessica A Fast DO, Jessica A Comments: january Cartoid DopplerBy: Fast DO, Jessica A On: 05-Nov-2016 Intent Fast DO, Jessica A Comments: november PNEUM VAC ADLT/IMUMNOSPR, SBC/INTRM On: 05-Nov-2016 Intent ([id number])By: Fast DO, Jessica A Fast DO, Comments: lot: [id number]: 02/05/18ite/route: L del/IMamt: 0.5mLVIS signed when applicableChelsMARIE fabian Jessica A CT - Brain/Head (IV Contrast On: 05-May-2016 Intent Needed)By: Fast DO, Jessica A Fast DO, Jessica A Ultrasound - ThyroidBy: Fast DO, On: 05-May-2016 Intent Jessica A Fast DO, Jessica A Flu Vaccine (Quadrivalent) 92506Ml: On: 05-May-2016 Intent Fast DO, Jessica A Fast DO, Jessica A Comments: FLUlot: [id number]:02/25/17site:rt deltoidroute:IMdose:.5mlDEMICK, [place] ELECTROCARDIOGRAM, COMPLETE (ECG) On: 14-Apr-2016 Intent ([id number])By: Fast DO, Jessica A Fast DO, Comments: ekg showed sinus lokesh normal axis no acute change Jessica A Echo CompleteBy: Fast DO, Jessica A On: 14-Apr-2016 Intent Fast DO, Jessica A Nuclear Stress Test/Stress On: 14-Apr-2016 Intent SPECT/TreadmillBy: Fast DO, Jessica A Fast DO, Jessica A Overnight Pulse Ox([id number])By: Fast DO, On: 23-Oct-2015 Intent Jessica A Fast DO, Jesscia A Six Minute Walk Assessment (90988)By: On: 23-Oct-2015 Intent Fast DO, Jessica A Fast DO, Jessica A Ultrasound - AortaBy: Fast DO, Jessica On: 08-Aug-2015 Intent A Fast DO, Jessica A Flu Vaccine (Quadrivalent) 78469Pq: On: 08-Aug-2015 Intent Fast DO, Jessica A Fast DO, Jessica A Comments: lot [id number]: 02/26/2016site/route L shala, IMamt 0.5mlVIS and ABN signed when applicableChelsrui [facility] Six Minute Walk Assessment (03686)By: On: 08-Aug-2015 Intent Fast DO, Jessica A Fast DO, Jessica A Overnight Pulse OX (85468)By: Fast On: 08-Aug-2015 Intent DO, Jessica A Fast DO, Jessica A Cartoid DopplerBy: Fast DO, Jessica A On: 08-Aug-2015 Intent Fast DO, Jessica A IMMUNIZ ADMNIN, 1 VAC, SNGL/COMBO On: 17-Feb-2015 Intent ([id number])By: Fast DO, Jessica A Fast DO, Jessica A DEXA SCAN AXIAL SKELETON (02593)By: On: 07-Oct-2014 Intent Fast DO, Jessica A Fast DO, Jessica A Flu Vaccine (Quadrivalent) 19489Tl: On: 03-Jul-2014 Intent Fast DO, Jessica A Fast DO, Jessica A Comments: lot:[id number]:dose:0.5mLRoute: IMlocation: L armgiven by: msmith [facility] INFLUENZA [facility]IR[facility] On: 03-Jul-2014 Intent VACCINE ([id number])By: Fast DO, Jessica A Fast DO, Jessica A Holter Monitor 24 hrsBy: Fast DO, On: 15-Mar-2014 Intent Jessica A Fast DO, Jessica A Cartoid DopplerBy: Fast DO, Jessica A On: 15-Mar-2014 Intent Fast DO, Jessica A IMMUNIZ ADMNIN, 1 VAC, SNGL/COMBO On: 14-Sep-2013 Intent ([id number])By: Fast DO, Jessica A Fast DO, Jessica A FLU VAC, SPLIT, >3 YEARS, INTRAMUSC On: 14-Sep-2013 Intent (29978)By: Fast DO, Jessica A Fast DO, Comments: Lot #:[id number] date:mount given:0.5mlRoute: IMSite given: L dltdVIS and ABN signedGiven by: MYESHA Lozano Eprescribed prescriptions (G8553)By: On: 14-Sep-2013 Intent Rosario Dickson JALYN (Ankle Brachial Index) (76951)By: On: 17-Jan-2013 Intent Fast DO, Jessica A Fast DO, Jessica A Cartoid DopplerBy: Fast DO, Jessica A On: 17-Jan-2013 Intent Fast DO, Jessica A Eprescribed prescriptions (G8553)By: On: 17-Jan-2013 Intent Rosario Dickson DXA, BONE DENSITY, AXIAL SKELETON On: 20-Sep-2012 Intent (30105)By: Fast DO, Jessica A Fast DO, Jessica A Eprescribed prescriptions (G8553)By: On: 20-Sep-2012 Intent Rosario Dickson Six Minute Walk Assessment (52376)By: On: 24-Feb-2012 Intent Ángela Patel RN Inhaler Demo (39589)By: Hola DO, On: 26-Jan-2012 Intent Jessica A Fast DO, Jessica A Six Minute Walk Assessment (98450)By: On: 26-Jan-2012 Intent Fast DO, Jessica A Fast DO, Jessica A Overnight Pulse OX (22628)By: Hola On: 26-Jan-2012 Intent DO, Jessica A Fast DO, Jessica A Spirometry (96608)By: Yessi, On: 26-Jan-2012 Intent Rosario Comments: god effort and curve mod- severe obstruction TDAP VACCINE >7 IM (26155)By: On: 21-Jul-2011 Intent Rosario Dickson Comments: Lot #[id number]-L arm, IMDose prefilledgiven by:Adalgisa KOVACS - OtherBy: Fast DO, Jessica A Fast On: 21-Jul-2011 Intent DO, Jessica A Comments: right foot FLU VAC, SPLIT, >3 YEARS, INTRAMUSC On: 21-Jul-2011 Intent ([id number])By: Rosario Dickson Comments: pharmacy PNEUM VAC ADLT/IMUMNOSPR, SBC/INTRM On: 28-Jul-2010 Intent (61146)By: Hola DO, Jessica A Fast DO, Comments: Lot #[id number]/12Site-R armDose0.5mlgiven by:ATA Hernandez IMMUNIZ ADMNIN, 1 VAC, SNGL/COMBO On: 28-Jul-2010 Intent (55023)By: Fast DO, Jessica A Fast DO, Jessica A Overnight Pulse Ox([id number])By: Amanda FIGUEROA, On: 22-Jul-2010 Intent Ángela Six Minute Walk Assessment (74736)By: On: 22-Jul-2010 Intent Ángela Patel RN Overnight Pulse OX (65739)By: Fast On: 15-Jun-2010 Intent DO, Jessica A Fast DO, Jessica A Six Minute Walk Assessment (72202)By: On: 15-Jun-2010 Intent Fast DO, Jessica A Fast DO, Jessica A DXA, BONE DENSITY, AXIAL SKELETON On: 15-Jun-2010 Intent (55651)By: Fast DO, Jessica A Fast DO, Jessica A Radiology - Chest- PA and LatBy: Fast On: 15-Jun-2010 Intent DO, Jessica A Fast DO, Jessica A Spirometry (72058)By: Fast DO Jessica On: 15-Jun-2010 Intent A Fast DO, Jessica A Comments: good effort and curve mod obst EKG (32975)By: Fast DO, Jessica A Fast On: 15-Jun-2010 Intent DO, Jessica A Comments: ekg showed normal sinus rhythym, near rightl axis, no acute st/t wave changes Instructions Name Dates Details Coronary artery disease : How to access health information online Indication: Coronary artery disease Coronary artery disease : How to access health information online - Detail Indication: Coronary artery disease Coronary artery disease : Patient Instructions Indication: Coronary artery disease mdvip wellness exam : How to access health information online Indication: mdvip wellness exam mdvip wellness exam : How to access health information online - Detail Indication: mdvip wellness exam mdvip wellness exam : Patient Instructions Indication: mdvip wellness exam Hyperlipidemia : DISCONTINUED - LIPID PANEL (66295) Indication: Hyperlipidemia Elevated hemoglobin A1c : DISCONTINUED - HGB A1C (58455) Indication: Elevated hemoglobin A1c Low back pain [...] Indication: Seizure disorder Encounters Office Visit On: 16-Aug-2018 12:52 Encounter Reason: Follow up tests - Date: (07/2018 calcium score). Note for Discuss procedure results: no chest pain dizzy syncope still has sob with ezeertionEncounter Diagnosis: Former smoker, BMI 26.0-26.9,adult, Coronary artery disease End: 17-Aug-2018 20:42 [facility] Phone Encounter On: 30-Jun-2018 10:39 Encounter Diagnosis: Osteoporosis End: 30-Jun-2018 11:22 [facility] Office Visit On: 28-Jun-2018 7:56 Encounter Reason: Physical male exam - General health: feels well with no complaints (would like to go over some blood work he had), has good energy level and is sleeping well. The patient's appetite is normal. Nutrition End: 15-Sep-2018 9:32 : normal/adequate. Exercises 0 (golfing) days per week. Sleeps on average 7 (7-8) hours per night. Elimination problems include urinary frequency (gets up to use restroom at night). Safety measures incl ude appropriate use of safety belts and home smoke detectors. Current emotional problems include depression (occasionally). The patient's libido is absent. Note for Physical exam: [facility]-- he is feeling better [...] medic al issues: he was golfing in [employer] long car ride then low back radiating [...] libido is absent. Note for Physical exam: [facility]- dizziness is in general better [...] patient does not have durable power of employment law attorney or living will. The patient has [...] been stressful- hasnt been back with sibilia- becuase hasnt quit smoking and is going to [...] disease (607.85) [facility] Payers MedicareUSAA Life Insurance CompanyMACY WREN; a guarantor
--- OUTSIDE RECORDS SUMMARY | 2018-11-19 14:39 | XMS RPT_ITS | Continuity of Care Document ---
:1950 Author Organization [facility] Address [address] [facility] [address] [place] [address] Phone Care Team Providers Name Role Phone Jessica Limon DO Unavailable Dr. Landon Werner Unavailable [facility], [facility] Unavailable Dr. Jeremiah Banegas S Unavailable Pravin [...] obstructive pulmonary disease (J44.9, 496) Status: Active Coronary artery disease (I25.10, 414.00) [...] is following pet scan neg Status: Active mdvip wellness exam Status: Active MDVIP WELLNESS EXAM Status: Active [...] Start : 16-Aug-2018 Active CALTRATE 600+D PLUS, [id number] (Oral Tablet) 1 tab bid (600-400 MG-UNIT) [...] days Quantity: 30 {Tablet} Refills: 0 Ordered:30-May-2014 Yissel Baker LPNe Start : 08-Oct-2013 End : 30-May-2014 Discontinued [...] Procedures Procedure Dates Details [place] ([address]) Date: 17-Feb-2015 Completed 17-Feb-2015 Appendectomy Completed Colonoscopy Completed 04-Nov-2015 Comments: Within Normal Limits. Small adenoma removed- repeat in 5 years Tonsillectomy Completed Date Value Details 11-Aug-[address] w/CCTA Result: Comments: See Note; NOTES: [facility] Imaging Services [address] [place] [address] w/CCTA MR#: [id number] Acct: [id number] Name: CHELI NEUMANN Rep #: [id number] : 1950 M 67 From: Charbel Cunha MD PCP: Jessica Limon DO Status: REG CLI Study: Limited Chest CT w/CCTA Date of Exam: 08/11/18 Exam# [id number] Ordering Dr: Jessica Limon DO STUDY: CT [...] Charbel Cunha MD at 12:43 EST Tel [phone], Service support , CC: Jessica Limon DO Informatics Pharmacist: Signed 11-Aug-[address] w/CCTA Result: Comments: See Note; NOTES: [facility] Imaging Services [address] [place] [address] w/CCTA MR#: [id number] Acct: [id number] Name: CHELI NEUMANN Rep #: [id number] : 1950 M 67 From: Charbel Cunha MD PCP: Jessica Limon DO Status: REG CLI Study: Limited Chest CT w/CCTA Date of Exam: 08/11/18 Exam# [id number] Ordering Dr: Jessica Limon DO STUDY: CT [...] Charbel Cunha MD at 12:43 EST Tel [phone], Service support , CC: Jessica Limon DO Informatics Pharmacist: Signed 08-Aug-2018 Lower Ext/No Jt/w/o Result: Comments: See Note; NOTES: [facility] Imaging Services [address] [place] [address] Lower Ext/No Jt/w/o MR#: [id number] Acct: [id number] Name: THIENCHELI Rep #: [id number] : 1950 67 From: Demarco Ellsworth MD PCP: Jessica Limon DO Status: REG CLI Study: Lower Ext/No Jt/w/o Date of Exam: 08/08/18 Exam# [id number] Ordering Dr: Jeremiah Banegas DPM STUDY: MRI RIGHT WA DFOOT REASON FOR EXAM: Painful soft tissue [...] CC: Jessica Limon DO; Jeremiah Banegas DPM Informatics Pharmacist: Signed 23-May-2018 PT D/C Summary (1) Result: Comments: See Note; NOTES: [facility] [place] [address] Fax [facility]HABILITATION SERVICES [facility] SUMMARY MR#: [id number] Acct: [id number] Name: CHELI NEUMANN Rep #: [id number] [...] PAIN. DOING HEP BUT HASN'T GONE TO [facility] BUT PLANS TO WHEN GOLFING SEASON IS OVER. PATIENT STATES HE DOESN'T THINK HE H TAKEN ANY ADVIL FOR ABOUT A MONTH. DRIVING TO [place]. FOR GOLF OUTING FOR A WEEK 36 [...] please feel free to call me at [phone]. Thank you for the referral of this patient. Sin Rose alonso <Electronically signed by Rose Colunga PT, Cert. MDT> 05/23/18 3133 CC: Jessica Limon DO ANDREA Signed 18-Apr-2018 Re-Evaluation - PT (1) Result: Comments: See Note; NOTES: [facility] [address] [place] [address] Fax [facility] MR#: [id number] Acct: [id number] Name: CHELI NEUMANN Rep #: [id number] : 1950 67 From: Rose Colunga PT, Cert. MDT Referring Dr.: Jessica Limon DO Status: REG RCR Ins [...] REPORTS HE IS A MEMBER AT THE [employer]. STILL FEELING A LITTLE BIT OF TIGHTNESS [...] do not hesitate to contact me at [phone] by phone or if you have questions or concerns regarding this new plan of care! Sincerely, Rose Colunga <Electronically signed by Vicente Colunga PT, MDT> 04/18/18 1436 CC: Jessica Limon DO ANDREA Signed For Medicare only, by signing this I certify the plan of care. Physicians Signature Date 28-Mar-2018 Inital Evaluation (1) - PT Result: Comments: See Note; NOTES: [facility] [facility] [place] [address] Fax REHABILITATION SERVICES INITIAL EVALUATION MR#: [id number] Acct: [id number] Name: CHELI NEUMANN Rep #: [id number] : 1950 67 From: Rose Colunga PT, MDT Referring Dr.: Jessica Limon DO Status: [...] of: NO APPARENT REASON BUT DROVE TO [place] [employer] [place] FOR A GOLF CL ASS. [...] DR. LIMON TOLD HIM NOT TO GO . HE REPORTS HE HAS NOT BEEN DRIVING [...] To decrease swelling/inflammation, To increase ROM Thank cristi quinteros for the opportunity to evaluate your patient. For Medicare and Medicare HMO plans, please review the plan of care and approve it. It will need to be FAXED BACK to us at [phone] for Medicare pur poses. Please let me know if there are questions or concerns regarding this plan of care. Physician Signature: Date: <Electronic ally signed by Rose Colunga PT, Cert. MDT> 03/28/18 1411 CC: Jessica Limon DO ANDREA Signed For Medicare only, by signing this I certify the plan of care. Physicians Signature Date 24-Mar-2018 Carotid Duplex Ultrasound Result: Comments: See Note; NOTES: [facility] Cardiovascular Services [address] [place] [address] Carotid Duplex Ultrasound 03/20/18 0956 MR#: [id number] Acct: [id number] Name: CHELI NOWAK Rep #: [id number] : 1950 67 From: David Mo MD Attending Dr: Jessica Limon DO Status: REG CLI Ordering Dr: Jessica Limon DO Date: 03/20/18 Location: [facility] Sex: M C Admitted: Reason For Study: [...] the left vertebral artery. Procedure Carotid Duplex 85112. Exam performed in department. Interpretation Sum lester No significant atherosclerotic plaque or stenosis noted in the right internal carotid artery. Mild (<50%) stenosis left extracranial internal carotid. Flow within the vertebral arteries is antegrade bilaterally. Ordering Physician: Jessica Limon Referring Physician: Jessica Limon ed By: Bethany Brar RVT 03/24/1829 Date David Mo MD CC: Jessica Limon DO Date Dictated: 03/20/18 0956 Date Transcribed: 03/24/18728 Informatics Pharmacist: Signed 21-Mar-2018 L/S Spine Min 4 Views Result: Comments: See Note; NOTES: [facility] Imaging Services [address] [place] [address] L/S Spine Min 4 Views MR#: [id number] Acct: [id number] Name: THIENCADE Rep #: [id number] : 1950 M 67 From: Phil Lazcano MD PCP: Jessica Limon DO Status: REG CLI Study: L/S Spine Min 4 Views Date of Exam: 03/21/18 Exam# [id number] Ordering Dr: Jessica Limon DO STUDY: X-RAY [...] CT at that time. Elect ronically Signed: Autl Lazcano MD at 12:29 EDT Tel , Service support , CC: Jessica Limon DO Informatics Pharmacist: Signed 16-Feb-2018 Chest without Contrast Result: Comments: See Note; NOTES: [facility] Imaging Services [address] [place] [address] Chest without Contrast MR#: [id number] Acct: [id number] Name: CHELI NEUMANN A Rep #: [id number] : 1950 M 67 From: Kali Diaz MD PCP: Jessica Limon DO Status: REG CLI Study: Chest without Contrast Date of Exam: 02/16/18 Exam# [id number] Ordering Dr: Carlos Bowers MD STUDY: CT [...] CC: Jessica Limon DO; Carlos Bowers MD Informatics Pharmacist: Signed 16-Nov-[address] Lung Screening Result: Comments: See Note; NOTES: [facility] Imaging Services [address] [place] [address] Lung Screening MR#: [id number] Acct: [id number] Name: CHELI NEUMANN Rep #: [id number] : 1950 M 66 From: Charbel Cunha MD PCP: Jessiac Limon DO Status: REG CLI Study: Low Dose CT Lung Screening Date of Exam: 11/16/17 Exam# [id number] Ordering Dr: Carlos Bowers MD STUDY: LOW [...] Charbel Cunha MD at 10:24 EDT Tel [phone], Service suppo rt , CC: Jessica Limon DO; Carlos Bowers MD Informatics Pharmacist: Signed 22-Jun-2017 Thyroid Result: Comments: See Note; NOTES: [facility] Imaging Services [address] [place] [address] Thyroid MR#: [id number] Acct: [id number] Name: CHELI NEUMANN Rep #: [id number] : [birth year] M 66 From: Kali Diaz MD PCP: Jessica Limon DO Status: REG CLI Study: Thyroid Date of Exam: 06/22/17 Exam# [id number] Ordering Dr: Jessica Limon DO STUDY: THYROID [...] Service support , CC: Jessica Limon DO Informatics Pharmacist: Signed 16-Mar-2017 Finger(s) Min 2 Views Result: Comments: See Note; NOTES: [facility] Imaging Services [address] [place] [address] Verdana 4d Finger(s) Min 2 Views MR#: [id number] Acct: [id number] Name: CHELI NEUMANN p #: [id number] : 1950 66 From: Chas Kulkarni MD PCP: Jessica Limon DO Status: REG CLI Study: Finger(s) Min 2 Views Date of Exam: 03/16/17 Exam# [id number] Ordering Dr: Jessica Limon DO STUDY: X- [...] Service support , CC: Jessica Limon DO Informatics Pharmacist: Signed 16-Mar-2017 Knee 4 or More Views Result: Comments: See Note; NOTES: [facility] Imaging Services [address] [place] [address] Verdana 4d Knee 4 or More Views MR#: [id number] Acct: [id number] Name: CHELI NEUMANN Rep #: [id number] : 1950 M 66 From: Chas Kulkarni MD PCP: Jessica Limon DO Status: REG CLI Study: Knee 4 or More Views Date of Exam: 03/16/17 Exam# [id number] Ordering Dr: Jessica Limon DO STUDY: X-RA [...] Service support , CC: Jessica Limon DO Informatics Pharmacist: Signed 01-Feb-2017 DXA BONE DENS W/VERT FX ASMT Result: Comments: See Note; NOTES: [facility] Imaging Services [address] [place] [address] Verdana 4d DXA BONE DENS W/VERT FX ASMT MR#: [id number] Acct: [id number] Name: THIEN,IRVING Hernandez Rep #: [id number] : 1950 M 66 From: Charbel Cunha MD PCP: Jessica Limon DO Status: REG CLI Study: DXA BONE DENS W/VERT FX ASMT Date of Exam: 02/01/17 Exam# [id number] Ordering Dr: Marcelino Limon DO STUDY: DUAL [...] Charbel Cunha MD at 12:41 EDT Tel [phone], Service support , Fax CC: Jessica Limon DO Informatics Pharmacist: Signed 01-Dec-2016 Carotid Duplex Ultrasound Result: Comments: See Note; NOTES: [facility] Cardiovascular Services [address] [place] [address] Carotid Duplex Ultrasound 11/29/16 0940 MR#: [id number] Acct: [id number] Name: CHELI NOWAK Rep #: [id number] : 1950 66 From: René Aiken MD Attending Dr: Jessica Limon DO Status: REG CLI Ordering Dr: Jessica Limon DO Date: 11/29/16 Location: [facility] Sex: M C [facility] For Study: Carotid stenosi Rt. Velocities/BP [...] the left vertebral artery. Procedure Carotid Duplex 38556. Exam performed in department. Interpretation Summary Mild (<50% ) stenosis right extracranial internal carotid. Mild (<50%) stenosis left extracranial internal carotid. Flow within the vertebral arteries is antegrade bilaterally. Ordering Physician: Jessica Limon Performed By: Bethany Brar RVT 12/01/16 1035 Date René Aiken MD CC: Jessica Limon DO Date Dictated: 11/29/16 0940 Date Transcribed: 12/01/16 1035 Informatics Pharmacist: Signed 10-May-2016 Brain/Head W/WO Contrast Result: Comments: See Note; NOTES: [facility] Imaging Services [address] [place] [address] Verdana 4d Brain/Head W/WO Contrast MR#: [id number] Acct: [id number] Name: CHELI NEUMANN Rep #: [id number] : 1950 65 From: Chas Kulkarni MD PCP: Jessica Limon DO Status: REG CLI Study: Brain/Head W/WO Contrast Date of Exam: 05/10/16 Exam# [id number] Ordering Dr: Jessica LimonDY: CT BRAIN WITH AND WITHOUT CONTRAST REASON [...] EDT , Service support , CC: Jessica Liomn DO Informatics Pharmacist: Signed 06-May-2016 Thyroid Result: Comments: See Note; NOTES: [facility] Imaging Services [address] [place] [address] Verdana 4d Thyroid MR#: [id number] Acct: [id number] Name: CHELI NEUMANN A Rep #: [id number] : 1950 M 65 From: Giorgio Hernandez MD PCP: Jessica Limon DO Status: REG CLI Study: Thyroid Date of Exam: 05/06/16 Exam# [id number] Ordering Dr: Jessica Limon DO STUDY: THYROID [...] at 7:32 EDT Tel , Service support [phone], F ax [phone] CC: Jessica Limon DO Informatics Pharmacist: Signed 20-Apr-2016 Echocardiogram Complete Result: Comments: See Note; NOTES: [facility] Cardiovascular Services [address] [place] [address] Echo Complete 04/20/16 0829 MR#: [id number] Acct: [id number] Name: CHELI NEUMANN Rep #: [id number] : 1950 65 From: Neeraj Porter MD [...] Performed By: Natalie Sarabia RD CS, RVT 04/20/16 1337 Date Neeraj Porter MD CC: Jessica Limon DO Date Dictated: 29 Date Transcribed: 04/20/161336 Informatics Pharmacist: Signed 20-Apr-2016 Nuclear Stress Test - Treadmil Result: Comments: See Note; NOTES: [facility] Imaging Services [address] [place] [address] Verda 4d Nuclear Stress Test - Treadmil MR#: [id number] Acct: [id number] Name: CHELI NEUMANN Rep #: [id number] : 1950 65 From: Neeraj Porter MD [...] 68%. Neeraj Porter MD T: NTS JOB: [id number] 04/21/16 1019 <Electronically signed by Neeraj Porter MD> Date Neeraj Porter MD CC: Jessica Limon DO Date Dictated: 04/20/16849 Date Transcribed: 04/20/16849 Informatics Pharmacist: Signed 07-Apr-2016 ELECTROCARDIOGRAM, COMPLETE (ECG) (99578) Comments: severe sinus lokesh- otherwise normal sinus- normal axis no acute st t wave changes Result: [MEASUREMENTS ANALYSIS] Date of Test: 04/07/2016 11:15:52; Heart Rate: 39; VA Interval: 192; QRS: 96; QT Interval: 462; Corrected QT Interval (QTc): 426; P Wave [place]: 69; QRS Wave [place]: 66; T Wave [place]: 50; Blood Pressure: 114/68 [ECG DIAGNOSTIC STATEMENTS] Date of Test: 04/07/2016 11:15:52; Summary: Marked sinus Bradycardia -With rate variation cv = 10.Low voltage in limb leads. ABNORMAL [MEASUREM ENTS ANALYSIS] Date of Test: 04/07/2016 11:14:53; Heart Rate: 41; VA Interval: 188; QRS: 96; QT Interval: 458; Corrected QT Interval (QTc): 425; P Wave [place]: 90; QRS Wave [place]: 65; T Wave [place]: 49; Bloo d Pressure: 114/68 [ECG DIAGNOSTIC STATEMENTS] Date of Test: 04/07/2016 11:14:53; Summary: Marked sinus Bradycardia -With rate variation cv = 22.Low voltage in limb leads. ABNORMAL 12-Dec-2015 Carotid Duplex Ultrasound Result: Comments: See Note; NOTES: [facility] Cardiovascular Services [address] [place] [address] Carotid Duplex Ultrasound 12/10/15 0904 MR#: [id number] Acct: [id number] Name: CHELI NEUMANN Rep #: [id number] : 1950 65 From: René Aiken MD Attending Dr: Jessica Limon DO Status: REG CLI Ordering Dr: Jessica Limon DO Date: 12/10/15 Location: [facility] Sex: M C A dmitted: Reason For [...] the left vertebral artery. Procedure Carotid Duplex 28665. The exam was diagnostic. Exam performed in department. Interpretation Summary Mild (<50%) stenosis right extracrania l internal carotid. Mild (<50%) stenosis left extracranial internal carotid. Flow within the vertebral arteries is antegrade bilaterally. There is elevated velocities throughout the entire r ight common and internal carotid arteries. Ordering Physician: Jessica Limon Performed By: Natalie Causey, ANNI, RVT 12/12/151751 Date René Aiken MD CC: Jessica Limon DO Date Dictated: 12/10/15903 Date Transcribed: 12/12/151751 Informatics Pharmacist: Signed 10-Dec-2015 Aorta Result: Comments: See Note; NOTES: [facility] Imaging Services [address] [place] [address] Verdana 4d Aorta MR#: [id number] Acct: [id number] Name: CHELI NEUMANN Rep # : [id number] : 1950 65 From: Charbel Cunha MD PCP: Jessica Limon DO Status: REG CLI Study: Aorta Date of Exam: 12/10/15 Exam# [id number] Ordering Dr: Jessica Limon DO PROCEDURES: ULTRA [...] Cristina i, MD at 10:18 EDT Tel [phone], Service support [phone], CC: Jessica Limon DO Informatics Pharmacist: Signed 23-Oct-2015 Spirometry (71178) Result: 08-Aug-2015 ELECTROCARDIOGRAM, COMPLETE (ECG) (91823) Comments: ekg showed normal sinus rhythym, normal axis, no acute st/t wave changes Result: [MEASUREMENTS ANALYSIS] Date of Test: 08/08/2015 11:57:53; Heart Rate: 57; VA Interval: 192; QRS: 94; QT Interval: 428; Corrected QT Interval (QTc): 423; P Wave [place]: 78; QRS Wave [place]: 76; T Wave [place]: 47; Blood Pressure: 120/72 [ECG DIAGNOSTIC STATEMENTS] Date of Test: 08/08/2015 11:57:53; Summary: Sinus Bradycardia Low voltage in limb leads. ABNORMAL 30-Jan-2015 Dexa Bone Density Study (HP) Result: Comments: See Note; NOTES: [facility] Imaging Services [address] [place] [address] Bone Density Report MR#: [id number] Acct: [id number] Name: THIENCADE Rep #: [id number] : 1950 64 From: Charbel Cunha MD PCP: Jessica Limon DO Status: REG CLI Study: Dexa Bone Density Study (HP) Date of Exam: 01/30/15 Exam# [id number] Ordering Dr: Jessica Limon DO STUDY: DUAL [...] Charbel Cunha MD at 15:54 EDT Tel [phone], Service support [phone], CC: Jessica Limon DO Informatics Pharmacist: Signed 25-Sep-2014 Carotid Duplex Ultrasound Result: Comments: See Note; NOTES: [facility] Cardiovascular Services [address] [place] [address] Carotid Duplex Ultrasound 09/25/14 0850 MR#: [id number] Acct: [id number] Nam e: CHELI NEUMANN Rep #: [id number] : 1950 63 From: René Aiken MD Attending Dr: Jessica Limon DO Status: REG CLI Ordering Dr: Jessica Limon DO Date: 09/25/14 Location: [facility] Sex: M C Admitted : Rt. Velocities/BP [...] in the left bulb. Procedure Carotid Duplex 44329. Exam performed in department. Interpretation Summary Mild (<50%) stenosis right extracranial internal carotid. Mild (<50%) stenosis left extracranial internal carotid. Flow w ithin the vertebral arteries is antegrade bilaterally. Ordering Physician: Jessica Limon Perform ed By: Lynn Granados RDCS 09/25/14 1044 Date René Aiken MD CC: Jessica Limon DO Date Dictated: 09/25/14 0850 Date Transcribed: 09/25/14 1044 Informatics Pharmacist: Signed 15-Mar-2014 EKG (99703) Comments: ekg showed rhythym with periods of irregular rhythm- not afib, normal axis, no acute st/t wave changes Result: [MEASUREMENTS ANALYSIS] Date of Test: 03/15/2014 07:58:47; Heart Rate: 57; VA Interval: 202; QRS: 98; QT Interval: 412; Corrected QT Interval (QTc): 407; P Wave [place]: 90; QRS Wave [place]: 62; T Wave [place]: 52; Blood Pressure: 126/78 [ECG DIAGNOSTIC STATEMENTS] Date of Test: 03/15/2014 07:58:47; Summary: Sinus Bradycardia - occasional ectopic ventricular beat Low voltage in limb leads. -RSR(V1) -nondiagnostic. ABNORMAL Immunization Name Dates Details Zoster (shingles) on: 17-Feb-2015 Comments: Site: Posterior Upper Arm (Left) Lot #: [id number] Family History Unknown Family Member Name Dates [...] smoker Vital Signs Date Test Result Details :55 Temperature 98.1 f Comments: Method: Temporal Pulse [...] kg/m2 Body Surface Area Calculated 2.08 m2 53-Svo-207482:05 Temperature 97.7 f Comments: Method: Temporal Pulse [...] 2.08 m2 Results Date Description Value Details 05-Pqc-36039:22 Comp. Metabolic Panel (14) Comments: PATIENT WAS FASTINGPERFORMED BY: [facility] [id number] [facility] [id number] ALT (SGPT) 26 [iU]/L (Normal) Range: 0-44 [...] mg/dL (Normal) Range: 65-99 :32 DRUG ASSAY-PHENOBARBITOL (38435) Comments: PATIENT WAS FASTINGPERFORMED BY: [id number] [facility] [id number] Phenobarbital, Serum 18 ug/mL (Normal) Range: 15-40 Comments: Detection Limit = 3 :32 Phenytoin (Dilantin) (45143) Comments: PATIENT WAS FASTINGPERFORMED BY: [email or web address] [facility] System[facility] [place] [id number] Phenytoin (Dilantin), Serum 12.2 ug/mL (Normal) Range: 10.0-20.0 Comments: Detection Limit = 0.8 <0.8 Indicates None Detected :32 MICROALBUMIN: CREATININE RATIO Comments: PATIENT WAS FASTINGPERFORMED BY: [email or web address] [facility] System[facility] [place] [id number] (75704) AND (01394) Alb/Creat Ratio <4.3 {mg/g_creat} (Normal) Range: 0.0-30.0 Albumin, Urine <3.0 ug/mL (Normal) Creatinine, Urine 70.5 mg/dL (Normal) :32 METABOLIC PANEL, COMPREHENSIVE Comments: PATIENT WAS FASTINGPERFORMED BY: [facility] HospitalVfpgid6678 [facility] [id number] (78813) ALT (SGPT) 16 [iU]/L (Normal) Range: 0-44 [...] DIFF WBC Comments: PATIENT WAS FASTINGPERFORMED BY: [facility] Gcrrnq6508 [facility] [id number] Information: [id number] (72769) Immature Grans (Abs) 0.0 {x10E3/uL} (Normal) Range: [...] {x10E3/uL} (Normal) Range: 3.4-10.8 :32 HGB A1C (10569) Comments: PATIENT WAS FASTINGPERFORMED BY: [facility] [id number] Hemoglobin A1c 5.4 % (Normal) Range: 4.8-5.6 Comments: . Pre-diabetes: 5.7 - 6.4 Diabetes: >6.4 Glycemic control for adults with diabetes: <7.0 :32 C-REACT PROT HIGH SENS(hsCRP) Comments: PATIENT WAS FASTINGPERFORMED BY: [facility] [id number] (69522) C-Reactive Protein, Cardiac 7.13 mg/L (Abnormal) Range: 0.00-3.00 Comments: Relative Risk for Future Cardiovascular Event Low <1.00 Average 1.00 - 3.00 High >3.00 :32 Vitamin D Hydroxy (49865) Comments: PATIENT WAS FASTINGPERFORMED BY: ZentrickRUSTGnksjd4774 [facility] [id number] Vitamin D, 25-Hydroxy 50.4 ng/mL (Normal) Range: 30.0-100.0 Comments: Vitamin D deficiency has been defined by the [place] of[place]icine and an Endocrine Society practice guideline as alevel of serum 25-OH vitamin D less than 20 ng/mL (1,2).The Endocrine Society went on to further define vitamin Dinsufficiency as a level between 21 and 29 ng/mL (2).1. IOM ([place] of [employer]). 2010. Dietary reference intakes for calcium and D. Heart [place]: The National Academies Press.2. Mely MF, Jus CASTILLO, Sophie GUARDADO, et al. Evaluation, treatment, and prevention of vitamin D deficiency: an Endocrine Society clinical practice guideline. JCEM. 2010; 96(7):1911-30. :32 LIPID PANEL (43737) Comments: PATIENT WAS FASTINGPERFORMED BY: [facility] Gkpmeb1291 [facility] [id number] LDL/HDL Ratio 1.4 {ratio} (Normal) Range: 0.0-3.6 [...] AUT DIFF Comments: PATIENT NOT FASTINGPERFORMED BY: [facility] Sofmea3208 [facility] [id number] (69202) Immature Grans (Abs) 0.0 {x10E3/uL} (Normal) Range: [...] (Normal) Range: 3.4-10.8 28-Dec-20179:00 FOLIC ACID SERUM (74654) Comments: PATIENT NOT FASTINGPERFORMED BY: [employer] Oszoan5986 [facility] [id number] Folate (Folic Acid), Serum 16.2 ng/mL (Normal) Comments: A serum folate concentration of less than 3.1 ng/mL isconsidered to represent clinical deficiency. 28-Dec-20179:00 IRON BINDING CAPACITY (TIBC) Comments: PATIENT NOT FASTINGPERFORMED BY: [employer] Tykxfj7102 [facility] [id number] (36272) Iron Saturation 41 % (Normal) Range: 15-55 Iron 86 ug/dL (Normal) Range: 38-169 UIBC 123 ug/dL (Normal) Range: 111-343 Iron Bind.Cap.(TIBC) 209 ug/dL (Abnormal) Range: 250-450 28-Dec-20179:00 FERRITIN (74874) Comments: PATIENT NOT FASTINGPERFORMED BY: [facility]6370 [facility] [id number] Ferritin, Serum 122 ng/mL (Normal) Range: 30-400 28-Dec-20179:00 LDH (LD) (LACTATE DEHYDROGENASE) Comments: PATIENT NOT FASTINGPERFORMED BY: [place] [id number] [facility] [id number] (47860) LDH 169 [iU]/L (Normal) Range: 121-224 28-Dec-20179:00 VITAMIN B-12 (CYANOCOBALAMIN) Comments: PATIENT NOT FASTINGPERFORMED BY: dakickAspirus Ironwood Hospital6370 [facility] [id number] (08992) Vitamin B12 627 pg/mL (Normal) Range: 232-1245 06-Ykc-991902:23 CBC W/AUTO DIFF WBC (55167) Comments: PATIENT NOT FASTINGPERFORMED BY: dakickAspirus Ironwood Hospital6370 [facility] [id number] Immature Grans (Abs) 0.0 {x10E3/uL} (Normal) Range: [...] 4.14-5.80 WBC 5.4 {x10E3/uL} (Normal) Range: 3.4-10.8 23-Nuk-321351:23 DRUG ASSAY-PHENOBARBITOL (02061) Comments: PATIENT NOT FASTINGPERFORMED BY: Zentrick Qvnele6029 [facility] [id number] Phenobarbital, Serum 19 ug/mL (Normal) Range: 15-40 Comments: Detection Limit = 3 :23 Phenytoin (Dilantin) (45734) Comments: PATIENT NOT FASTINGPERFORMED BY: Zentrick Sddhgc7030 [facility] [id number] Phenytoin (Dilantin), Serum 16.7 ug/mL (Normal) Range: 10.0-20.0 Comments: Detection Limit = 0.8 <0.8 Indicates None Detected 09-Phr-72679:22 CBC W/AUTO DIFF WBC (79961) Comments: PATIENT WAS FASTINGPERFORMED BY: Zentrick Khikdt5782 [facility] [id number] Immature Grans (Abs) 0.0 {x10E3/uL} (Normal) Range: [...] 4.14-5.80 WBC 4.9 {x10E3/uL} (Normal) Range: 3.4-10.8 :22 DRUG ASSAY-PHENOBARBITOL (89028) Comments: PATIENT WAS FASTINGPERFORMED BY: [employer] Fifikl101[address] RoadDublin [place] [id number] Phenobarbital, Serum 17 ug/mL (Normal) Range: 15-40 Comments: Detection Limit = 3 :22 Phenytoin (Dilantin) (35446) Comments: PATIENT WAS FASTINGPERFORMED BY: Wercker [facility] Wwuynd0274 [address] RoadDublin [place] [id number] Phenytoin (Dilantin), Serum 12.5 ug/mL (Normal) Range: 10.0-20.0 Comments: Detection Limit = 0.8 <0.8 Indicates None Detected :03 Vitamin D Hydroxy (80746) Comments: PATIENT WAS FASTINGPERFORMED BY: [facility]cker [facility] Wrhlcd6646 [address] RoadDublin [place] [id number] Vitamin D, 25-Hydroxy 56.7 ng/mL (Normal) Range: 30.0-100.0 Comments: Vitamin D deficiency has been defined by the [place] of[place]icine and an Endocrine Society practice guideline as alevel of serum 25-OH vitamin D less than 20 ng/mL (1,2).The Endocrine Society went on to further define vitamin Dinsufficiency as a level between 21 and 29 ng/mL (2).1. IOM ([place] of Medicine). 2010. Dietary reference intakes for calcium and D. Heart [place]: The National Academies Press.2. Mely MF, Jus CASTILLO, Sophie GUARDADO, et al. Evaluation, treatment, and prevention of vitamin D deficiency: an Endocrine Society clinical practice guideline. JCEM. 2010; 96(7):1911-30. :03 MICROALBUMIN: CREATININE RATIO Comments: PATIENT WAS FASTINGPERFORMED BY: Windfall SystemsFirstHealth [facility] [id number]; review 12/21 (51719) AND (49580) Alb/Creat Ratio 3.2 {mg/g_creat} (Normal) Range: 0.0-30.0 Albumin, Urine 3.5 ug/mL (Normal) Creatinine, Urine 108.8 mg/dL (Normal) :03 LIPID PANEL (79385) Comments: PATIENT WAS FASTINGPERFORMED BY: Monstrous[address] [facility] HospitalSvaya NanotechnologiesFirstHealth [facility] [id number] LDL/HDL Ratio 1.6 {ratio} (Normal) Range: 0.0-3.6 [...] PANEL, COMPREHENSIVE Comments: PATIENT WAS FASTINGPERFORMED BY: FoKo [address] [facility] [id number] (57197) ALT (SGPT) 16 [iU]/L (Normal) Range: 0-44 [...] mg/dL (Normal) Range: 65-99 :03 HGB A1C (78846) Comments: PATIENT WAS FASTINGPERFORMED BY: truedash6370 [facility] [id number] Hemoglobin A1c 5.5 % (Normal) Range: 4.8-5.6 Comments: . Pre-diabetes: 5.7 - 6.4 Diabetes: >6.4 Glycemic control for adults with diabetes: <7.0 :11 LIPID PANEL (08460) Comments: PATIENT WAS FASTINGPERFORMED BY: truedash6370 [facility] [id number] LDL/HDL Ratio 1.5 {ratio_units} (Normal) Range: 0.0-3.6 Comments: LDL/HDL Ratio Men Women 1/2 Avg.Risk 1.0 1.5 Av g.Risk 3.6 3.2 2X Avg.Risk 6.2 5.0 3X Avg.Risk 8.0 6.1 LDL Cholesterol Calc 93 mg/dL (Normal) Range: 0-99 VLDL Cholesterol Chyna 19 mg/dL (Normal) Range: 5-40 HDL Cholesterol 61 mg/dL (Normal) Triglycerides 97 mg/dL (Normal) Range: 0-149 Cholesterol, Total 173 mg/dL (Normal) Range: 100-199 60-Wko-06939:11 C-REACT PROT HIGH SENS(hsCRP) Comments: PATIENT WAS FASTINGPERFORMED BY: truedash6370 [facility] [id number] (33352) C-Reactive Protein, Cardiac 4.51 mg/L (Abnormal) Range: 0.00-3.00 Comments: Relative Risk for Future Cardiovascular Event Low <1.00 Average 1.00 - 3.00 High >3.00 37-Ozl-18611:11 DRUG ASSAY-PHENOBARBITOL (37899) Comments: PATIENT WAS FASTINGPERFORMED BY: truedash6370 [facility] [id number] Phenobarbital, Serum 19 ug/mL (Normal) Range: 15-40 Comments: Detection Limit = 3 :11 Phenytoin (Dilantin) (90568) Comments: PATIENT WAS FASTINGPERFORMED BY: Monstrous70 [facility] [id number]; review 09/21 Phenytoin (Dilantin), Serum 15.9 ug/mL (Normal) Range: 10.0-20.0 Comments: Detection Limit = 0.8 <0.8 Indicates None Detected :11 METABOLIC PANEL, COMPREHENSIVE Comments: PATIENT WAS FASTINGPERFORMED BY: truedash6370 [facility] [id number] (82630) ALT (SGPT) 16 [iU]/L (Normal) Range: 0-44 [...] Glucose, Serum 84 mg/dL (Normal) Range: 65-99 21-Hfj-30188:11 CBC W/AUTO DIFF WBC (36667) Comments: PATIENT WAS FASTINGPERFORMED BY: LabCoEssex County HospitalLednss2665 [facility] [id number] Immature Grans (Abs) 0.0 {x10E3/uL} (Normal) Range: [...] 4.14-5.80 WBC 5.3 {x10E3/uL} (Normal) Range: 3.4-10.8 72-Unc-74026:11 Lyme Disease Antibody W/ Comments: PATIENT WAS FASTINGPERFORMED BY: ZentrickRUSTKymahl2973 [facility] [id number] Reflex (16406) Lyme IgG/IgM Ab <0.91 {ISR} (Normal) Range: 0.00-0.90 Comments: Negative <0.91 Equivocal 0.91 - 1.09 Positive >1.09 8-Hrg-540504:15 C-Reactive Protein (07664) Comments: PATIENT NOT FASTINGPERFORMED BY: dakickAspirus Ironwood Hospital6370 [facility] [id number] C-Reactive Protein, Quant 7.5 mg/L (Abnormal) Range: 0.0-4.9 :15 RHEUMATOID FACTOR-QUANT (56631) Comments: PATIENT NOT FASTINGPERFORMED BY: ZentrickEssex County HospitalWlhnsb0521 [facility] [id number] RA Latex Turbid. <10.0 {IU/mL} (Normal) Range: 0.0-13.9 8-Wdg-743425:15 Lyme Disease Antibody W/ Comments: PATIENT NOT FASTINGPERFORMED BY: ZentrickEssex County HospitalAzsdwa9500 [facility] [id number] Reflex (12358) Lyme IgG/IgM Ab <0.91 {ISR} (Normal) Range: 0.00-0.90 Comments: Negative <0.91 Equivocal 0.91 - 1.09 Positive >1.09 06-Emq-39355:45 CBC W/AUTO DIFF WBC (38789) Comments: PATIENT WAS FASTINGPERFORMED BY: LabCoEssex County HospitalFmpqyv1085 [facility] [id number] Immature Grans (Abs) 0.0 {x10E3/uL} (Normal) Range: [...] 4.14-5.80 WBC 4.9 {x10E3/uL} (Normal) Range: 3.4-10.8 31-Zww-84793:45 METABOLIC PANEL, COMPREHENSIVE Comments: PATIENT WAS FASTINGPERFORMED BY: ZentrickEssex County HospitalUqsvug1557 [facility] [id number] (25582) ALT (SGPT) 40 [iU]/L (Normal) Range: 0-44 [...] (PROSTATE SPECIFIC Comments: PATIENT WAS FASTINGPERFORMED BY: truedash6370 [facility] [id number] ANTIGEN) (V76.44) Prostate Specific Ag, 2.6 ng/mL (Normal) Range: 0.0-4.0 Serum Comments: [facility] ECLIA methodology. .According to the [place] Urological Association, Serum PSA shoulddecrease and remain at undetectable levels after radicalprostatectomy. The AUA defines biochemical recurrence as an initialPSA value 0.2 ng/mL or greater followed by a subsequent confirmatoryPSA value 0.2 ng/mL or greater.Values obtained with d ifferent assay methods or kits cannot be usedinterchangeably. Results cannot be interpreted as absolute evidenceof the presence or absence of malignant disease. 45-Iak-556331:32 DRUG ASSAY-PHENOBARBITOL (08585) Comments: PATIENT WAS FASTINGPERFORMED BY: truedash6370 [facility] [id number] Phenobarbital, Serum 17 ug/mL (Normal) Range: 15-40 Comments: Detection Limit = 3 91-Gft-845881:32 Phenytoin (Dilantin) (79761) Comments: PATIENT WAS FASTINGPERFORMED BY: ZentrickEssex County HospitalWjlbxg8690 [facility] [id number] Phenytoin (Dilantin), Serum 14.8 ug/mL (Normal) Range: 10.0-20.0 Comments: Detection Limit = 0.8 <0.8 Indicates None Detected 36-Qhb-410550:32 METABOLIC PANEL, COMPREHENSIVE Comments: PATIENT WAS FASTINGPERFORMED BY: Zentrick Eovbcg1975 [facility] [id number] (89086) ALT (SGPT) 18 [iU]/L (Normal) Range: 0-44 [...] Glucose, Serum 73 mg/dL (Normal) Range: 65-99 85-Ssu-049088:32 LIPID PANEL (30015) Comments: PATIENT WAS FASTINGPERFORMED BY: dakickAspirus Ironwood Hospital6370 [facility] [id number] LDL/HDL Ratio 1.7 {ratio_units} (Normal) Range: 0.0-3.6 [...] mg/dL (Normal) Range: 100-199 :32 HGB A1C (69680) Comments: PATIENT WAS FASTINGPERFORMED BY: [facility]6370 [facility] [id number] Hemoglobin A1c 5.6 % (Normal) Range: 4.8-5.6 Comments: . Pre-diabetes: 5.7 - 6.4 Diabetes: >6.4 Glycemic control for adults with diabetes: <7.0 :32 Vitamin D Hydroxy (09405) Comments: PATIENT WAS FASTINGPERFORMED BY: dakickAspirus Ironwood Hospital6370 [facility] [id number] Vitamin D, 25-Hydroxy 49.9 ng/mL (Normal) Range: 30.0-100.0 Comments: Vitamin D deficiency has been defined by the [place] of[place]icine and an Endocrine Society practice guideline as alevel of serum 25-OH vitamin D less than 20 ng/mL (1,2).The Endocrine Society went on to further define vitamin Dinsufficiency as a level between 21 and 29 ng/mL (2).1. IOM ([place] of Medicine). 2010. Dietary reference intakes for calcium and D. Heart [place]: The National Academies Press.2. Mely MF, Jus CASTILLO, Sophie GUARDADO, et al. Evaluation, treatment, and prevention of vitamin D deficiency: an Endocrine Society clinical practice guideline. JCEM. 2010; 96(7):1911-30. 94-Cut-597325:32 C-REACT PROT HIGH SENS(hsCRP) Comments: PATIENT WAS FASTINGPERFORMED BY: [facility] Vvazah7247 [address] Roadblin [place] [id number] (11069) C-Reactive Protein, Cardiac 7.94 mg/L (Abnormal) Range: 0.00-3.00 Comments: Relative Risk for Future Cardiovascular Event Low <1.00 Average 1.00 - 3.00 High >3.00 :56 Potassium Serum (79678) Comments: PATIENT NOT FASTINGPERFORMED BY: [facility] Xylkpg6545 [address] [facility] Hospitalblin [place] [id number] Information: L65105, 950740 Potassium, Serum 5.2 mmol/L (Normal) Range: 3.5-5.2 23-Vlk-188994:29 Potassium Serum (50466) Comments: PATIENT NOT FASTINGPERFORMED BY: [facility] Boqxma9083 Ellsworth RoadDublin [place] [id number] Potassium, Serum 5.3 mmol/L (Abnormal) Range: 3.5-5.2 61-Nrr-894776:29 DRUG ASSAY-PHENOBARBITOL (91303) Comments: PATIENT NOT FASTINGPERFORMED BY: [facility] Vijfem2238 Ellsworth RoadDublin [place] [id number] Phenobarbital, Serum 21 ug/mL (Normal) Range: 15-40 Comments: Detection Limit = 3 38-Yjy-801397:29 Phenytoin (Dilantin) (22424) Comments: PATIENT NOT FASTINGPERFORMED BY: [facility] Nuchcb2507 Ellsworth RoadDublin [place] [id number] Phenytoin (Dilantin), Serum 13.8 ug/mL (Normal) Range: 10.0-20.0 Comments: : Therapeutic 6.0 - 14.0 . Detectio n Limit = 0.8 <0.8 Indicates None Detected :29 HEPATITIS C ANTIBODY (25034) Comments: PATIENT NOT FASTINGPERFORMED BY: [facility] Ykroda9710 [facility] [id number] Hep C Virus Ab <0.1 {s/co_ratio} (Normal) Range: 0.0-0.9 Comments: Negative: < 0.8 Indeterminate: 0.8 - 0.9 Positive: > 0.9 . The CDC recommends that a positive HCV antibody result be followed up with a HCV Nucleic Acid Amplification test (615569). :58 HGB A1C (80948) Comments: PATIENT WAS FASTINGPERFORMED BY: [facility]6370 [facility] [id number] Hemoglobin A1c 5.6 % (Normal) Range: 4.8-5.6 Comments: . Pre-diabetes: 5.7 - 6.4 Diabetes: >6.4 Glycemic control for adults with diabetes: <7.0 :58 CBC W/AUTO DIFF WBC (14361) Comments: PATIENT WAS FASTINGPERFORMED BY: [facility]6370 [facility] [id number] Immature Grans (Abs) 0.0 {x10E3/uL} (Normal) Range: [...] PANEL, COMPREHENSIVE Comments: PATIENT WAS FASTINGPERFORMED BY: LabCoEssex County HospitalSyrboo1249 [facility] [id number] (69850) ALT (SGPT) 16 [iU]/L (Normal) Range: 0-44 [...] mg/dL (Normal) Range: 65-99 :58 LIPID PANEL (26528) Comments: PATIENT WAS FASTINGPERFORMED BY: Alluring LogicRUSTEnjjlw4435 [facility] [id number] LDL/HDL Ratio 1.6 {ratio_units} Range: 0.0-3.6 (Normal) [...] mmol/L (Normal) Comments: PATIENT NOT FASTINGPERFORMED BY: Alluring LogicRUSTQzbzko4622 [address] [facility] [id number] 0:01 Range: 3.5-5.2 :58 C-REACT PROT HIGH SENS(hsCRP) Comments: PATIENT WAS FASTINGPERFORMED BY: [facility] LogicEssex County HospitalWltbvp3605 [facility] [id number] (28123) C-Reactive Protein, Cardiac 6.91 mg/L (Abnormal) Range: 0.00-3.00 Comments: Relative Risk for Future Cardiovascular Event Low <1.00 Average 1.00 - 3.00 High >3.00 :28 TESTOSTERONE FREE (34871) Comments: PATIENT NOT FASTINGPERFORMED BY: [facility]6370 [facility] [id number] BY: [facility]1447 [facility] [id number] Free Testosterone(Direct) 2.7 pg/mL (Abnormal) Range: 6.6-18.1 :38 Phenytoin (Dilantin) (06149) Comments: PATIENT WAS FASTINGPERFORMED BY: [facility]6370 [facility] Hospitalbl[facility] [place] [id number] Phenytoin (Dilantin), Serum 12.3 ug/mL (Normal) Range: 10.0-20.0 Comments: : Therapeutic 6.0 - 14.0 . Detectio n Limit = 0.8 <0.8 Indicates None Detected :38 Vitamin D Hydroxy (34776) Comments: PATIENT WAS FASTINGPERFORMED BY: [facility]6370 [facility] [id number] Vitamin D, 25-Hydroxy 57.6 ng/mL (Normal) Range: 30.0-100.0 Comments: Vitamin D deficiency has been defined by the [place] of[place]icine and an Endocrine Society practice guideline as alevel of serum 25-OH vitamin D less than 20 ng/mL (1,2).The Endocrine Society went on to further define vitamin Dinsufficiency as a level between 21 and 29 ng/mL (2).1. IOM ([place] of Medicine). 2010. Dietary reference intakes for calcium and D. Heart [place]: The National Academies Press.2. Mely MF, Jus CASTILLO, Sophie GUARDADO, et al. Evaluation, treatment, and prevention of vitamin D deficiency: an Endocrine Society clinical practice guideline. JCEM. 2010; 96(7):1911-30. :38 LIPID PANEL (76226) Comments: PATIENT WAS FASTINGPERFORMED BY: [facility] Ximhyb1379 [facility] Hospitalin [place] [id number] LDL/HDL Ratio 1.3 {ratio_units} (Normal) Range: 0.0-3.6 [...] CREATININE RATIO Comments: PATIENT WAS FASTINGPERFORMED BY: Monstrous70 [facility] [id number] (67451) AND (65063) Microalb/Creat Ratio <3.2 {mg/g_creat} (Normal) Range: 0.0-30.0 Microalbumin, Urine <3.0 ug/mL (Normal) Creatinine, Urine 95.2 mg/dL (Normal) :38 METABOLIC PANEL, COMPREHENSIVE Comments: PATIENT WAS FASTINGPERFORMED BY: Monstrous70 ViXS SystemsFirstHealth [facility] Hospital [id number] (42760) ALT (SGPT) 14 [iU]/L (Normal) Range: 0-44 [...] mg/dL (Normal) Range: 65-99 :38 HGB A1C (89571) Comments: PATIENT WAS FASTINGPERFORMED BY: [employer] [facility] [id number] Hemoglobin A1c 5.6 % (Normal) Range: 4.8-5.6 Comments: . Pre-diabetes: 5.7 - 6.4 Diabetes: >6.4 Glycemic control for adults with diabetes: <7.0 :38 C-REACT PROT HIGH SENS(hsCRP) Comments: PATIENT WAS FASTINGPERFORMED BY: ZentrickRUSTMvoias4389 [facility] [id number] (91721) C-Reactive Protein, Cardiac 16.47 mg/L (Abnormal) Range: 0.00-3.00 Comments: Relative Risk for Future Cardiovascular Event Low <1.00 Average 1.00 - 3.00 High >3.00 9-Sxo-888747:28 PSA (PROSTATE SPECIFIC Comments: PATIENT NOT FASTINGPERFORMED BY: [employer] Exomim0989 [facility] [id number] BY: [place] 956747 [facility] [id number] ANTIGEN) (V76.44) Prostate Specific Ag, 1.6 ng/mL (Normal) Range: 0.0-4.0 Serum Comments: Juan Antonio ECLIA methodology. .According to the [place] Urological Association, Serum PSA shoulddecrease and remain [...] Phenytoin (Dilantin) Comments: PATIENT NOT FASTINGPERFORMED BY: [facility]6370 [facility] [id number] BY: [address] [id number] (96234) Phenytoin (Dilantin), Serum 18.8 ug/mL (Normal) Range: 10.0-20.0 Comments: : Therapeutic 6.0 - 14.0 . Detectio n Limit = 0.8 <0.8 Indicates None Detected :24 Phenytoin (Dilantin) Comments: PATIENT NOT FASTINGPERFORMED BY: [place] 3528970 [facility] [id number] Information: [id number], 053817 (04447) Phenytoin (Dilantin), Serum 15.8 ug/mL (Normal) Range: 10.0-20.0 Comments: : Therapeutic 6.0 - 14.0 . Detectio n Limit = 0.8 <0.8 Indicates None Detected :19 Phenytoin (Dilantin) (40576) Comments: Order Date: 04/08/16Order Date: 04/08/16Time Medication is to be Given? [facility] [address]pxbvoyhy[address] [place], [place], [id number] PHENYTOIN 21.2 mL (Abnormal) Range: 10.0-20.0 Comments: Resulst Called to Charline 04/08/16 at 1450 by SproutBoxYTZER.Results read back by Charline. :34 CBC W/Diff, Automated Comments: [facility] [address]ud[address] [place], [address] Absolute Lymph 2.34 {X10_3/ul} (Normal) [...] 4.6-6.2 WBC 6.2 K/mm3 (Normal) Range: 4.4-11.0 94-Dom-741026:34 Comprehensive Metabolic Profil Comments: [facility] [address]wkniato[address] [place], [place], [phone] GAP 4 (Abnormal) Range: 5-15 CO2 31.0 [...] 7-18 GLU 75 mg/dL (Normal) Range: 70-110 81-Uyy-303429:34 Magnesium Comments: [facility] [address] [place], [place], [phone](282) MG 2.2 mg/dL (Normal) Range: 1.8-2.4 64-Gim-633890:34 Phenobarbital Comments: Time Medication is to be Given? 0000[facility] [address] [place], [place], [phone](781) PHENOBARB 22.0 ug/mL (Normal) Range: 10.0-40.0 70-Ebz-602477:34 Phenytoin (Dilantin) Level Comments: Time Medication is to be Given? 0000[facility] [address] [place], [place], [phone](576) PHENYTOIN 28.3 mL (Abnormal) Range: 10.0-20.0 Comments: Critical Result(s) Called at: 14:19:48 04/07/2016 by: Katlin kahn at [facility] 71-Kfn-328938:34 Thyroid Stim Hormone (TSH) Comments: [facility] [address] [place], [address] TSH 1.55 {uIU/mL} (Normal) Range: 0.358-3.74 :34 Vitamin B12 1009 pg/mL (Abnormal) Comments: [facility] Pzqezejzxg2920FLORIDALMA [place], [address] Range: 211-911 :11 CBC W/Diff, Automated Comments: [facility] Ecmanpdwed3891FLORIDALMA [place], [id number] Absolute Lymph 1.51 {X10_3/ul} (Normal) Range: 0.83-4.51 [...] Range: 4.4-11.0 :11 Comprehensive Metabolic Profil Comments: [facility] [address] [place], [place], [phone] GAP 7 (Normal) Range: 5-15 CO2 25.0 [...] 7-18 GLU 82 mg/dL (Normal) Range: 70-110 24-Tkp-08420:11 Lipid Profile Comments: [facility] [address] [place], [place], [phone] VLDL 10 mg/dL (Normal) Range: 5-40 LDL [...] Medication is to be Given? 0000[facility] [address] [place], [place], [phone] PHENOBARB 19.8 ug/mL (Normal) Range: 10.0-40.0 :11 Phenytoin (Dilantin) Level Comments: Time Medication is to be Given? 0000[facility] [address] [place], [address] PHENYTOIN 17.4 mL (Normal) Range: 10.0-20.0 :11 Vitamin D,25 Hydroxy Comments: [facility] [address] [place], [address] Vitamin D 25-OH 42.5 ng/mL (Normal) Comments: Vitamin D 25(OH) Status Range Deficiency <20 ng/mL (50nmol/L) Insuffciency 20 - 30 ng/mL (50 - 75 nmol/L) Sufficiency 30 - 100 ng/mL (75 - 250 nmol/L) Toxicity >100 ng/mL (>250 nmol/L) :15 COLON BIOPSY (CHOOSE See Note (Normal) Comments: [facility] [address] [place], [address] SITE) Comments: Patient: CHELI NEUMANN : 1950 (64/M) Acct Num: [id number] Phys: Landon Werner Unit Num: [id number] Loc: LABSPEC Specimen: [id number] Received: 11/04/15 - 5800 Spec Type: C OLON BX TISSUES TISSUES: GROSS DESCRIPTION Received is one container labeled with the patient name and designated polyp transverse colon. The specimen consists of multiple irregula r fragments of light caballero soft tissue that in aggregate measure 0.4 x 0.4 x 0.1 cm. The specimen is totally submitted in one cassette. / SJ:sl 05/01/16 TC:1 CPT: 37996 HEADER OPERATION: Colonoscopy with biopsy PRE-OP DIAGNOSIS: History of polyps TISSUE SUBMITTED: Polyp transverse colon, rule out adenoma MICROSCOPIC DESCRIPTION Slides are reviewed. MICROSCOPIC DIAGNOSIS Polyp trans verse colon, biopsy: Fragments of tubular adenoma. SJ:whit 11/06/15 Signed Tanner Sonin 11/06/15 <signature on file> :13 Lipid Profile Comments: [facility] [address] [place], [address] VLDL 13 mg/dL (Normal) Range: 5-40 [...] Medication is to be Given? 2099[facility] [address] [place], [address] PHENOBARB 19.2 ug/mL (Normal) Range: 10.0-40.0 :13 Phenytoin (Dilantin) Level Comments: Time Medication is to be Given? 2099[facility] [address] [place], [address] PHENYTOIN 19.8 mL (Normal) Range: 10.0-20.0 :13 Vitamin D,25 Hydroxy Comments: [facility] [address] [place], [address] Vitamin D 25-OH 30.7 ng/mL (Normal) Comments: Vitamin D 25(OH) Status Range Deficiency <20 ng/mL (50nmol/L) Insuffciency 20 - 30 ng/mL (50 - 75 nmol/L) Sufficiency 30 - 100 ng/mL (75 - 250 nmol/L) Toxicity >100 ng/mL (>250 nmol/L); ADDENDA: non-emergent till apt :11 CBC W/Diff, Automated Comments: Test performed at:[facility] [address] [place], [place] [address] ; will reivew at 02/17 appt Absolute [...] :11 Comprehensive Metabolic Profil Comments: Test performed at:[facility] [address]ongwu[address] [place] [address] GAP 6 (Normal) Range: 5-15 [...] Lipid Profile Comments: Test performed at:[facility] [address] [place] [address] VLDL 12 mg/dL (Normal) Range: [...] to be Given? ??2000Test performed at:[facility] [address] ??[place], [place] ??[address] PHENOBARB 19.4 ug/mL (Normal) Range: 10.0-40.0 :11 Phenytoin (Dilantin) Level Comments: Time Medication is to be Given? 2000Test performed at:[facility] [address] [place] [address] PHENYTOIN 18.1 ug/mL (Normal) Range: 10.0-20.0 :11 PSA,Total - Annual Screen Comments: Test performed at:[facility] [address] [place] [address] PSA,TOT SCREEN 2.27 ng/mL (Normal) Range: 0.00-4.00 Comments: This test was performed using the TPSA assay method for theBakers ShoesEndoEvolution chemistry system. Values obtained with differentassay methods cannot be used interchangably.When changing PSA assays in the course of monitoring apatient, additional sequential testing should be carriedout to confirm baseline values. :11 Vitamin D,25 Hydroxy Comments: Test performed at:[facility] [address] [place] [address] Vitamin D 25-OH 34.3 ng/mL (Normal) Comments: Vitamin D 25(OH) Status Range Deficiency <20 ng/mL (50nmol/L) Insuffciency 20 - 30 ng/mL (50 - 75 nmol/L) Sufficiency 30 - 100 ng/mL (75 - 250 nmol/L) Toxicity >100 ng/mL (>250 nmol/L) :04 Phenobarbital Comments: Has pt arrived? YTime Medication is to be Given? 0000Test performed at:[facility] [id number] [place] [address] PHENOBARB 18.5 ug/mL (Normal) Range: 10.0-40.0 :04 Phenytoin (Dilantin) Level Comments: Has pt arrived? YTime Medication is to be Given? 0000Test performed at:[facility] [id number] [place], [place] [id number] PHENYTOIN 16.3 ug/mL (Normal) Range: 10.0-20.0 [id number] Phenytoin (Dilantin) Level Comments: CRITICAL VALUE REPEATED AND VERIFIED. CALLED TO Khurram DICKSON09/06/14 Christin Moya.RESULTS READ BACK BY SAME.Time Medication is to be Given? 1000Test performed at:[facility] [address] [place], [place] [id number] PHENYTOIN 22.4 ug/mL (Abnormal) Range: 10.0-20.0 :19 CBC W/Diff, Automated Comments: Has pt arrived? YTest performed at:[facility] [address] ??[place], [place] ??[address] Absolute Lymph 1.89 {X10_3/ul} (Normal) Range: [...] Has pt arrived? YTest performed at:[facility] [address] [place], [place] [id number] GAP 5 (Normal) Range: 5-15 CO2 27.0 [...] 7-18 GLU 93 mg/dL (Normal) Range: 70-110 9-Larry-34441:19 Lipid Profile Comments: Has pt arrived? YTest performed at:[facility] [address] [place] [address] VLDL 12 mg/dL (Normal) Range: [...] Has pt arrived? YTest performed at:[facility] [address] [place], [place] [id number] Vitamin D 25-OH 31.9 ng/mL (Normal) Comments: Vitamin D 25(OH) Status Range Deficiency <20 ng/mL (50nmol/L) Insuffciency 20 - 30 ng/mL (50 - 75 nmol/L) Sufficiency 30 - 100 ng/mL (75 - 250 nmol/L) Toxicity >100 ng/mL (>250 nmol/L) 1-Bba-388435:46 Aerobic Bacterial Culture Comments: PATIENT NOT FASTINGPERFORMED BY: [facility] TherapeuticsRonald [place] [id number] [facility] [id number] Result 1 Mixed skin olivia (Normal) Aerobic Bacterial Culture Final report (Normal) 29-Mar-20147:07 DRUG ASSAY-PHENOBARBITOL Comments: PATIENT NOT FASTINGPERFORMED BY: [facility] [id number] [facility] [id number] Information: [id number],NO DRAW FEE (80251) Phenobarbital, Serum 15 ug/mL (Normal) Range: 15-40 Comments: Detection Limit = 2 <2 indicates None Detected 50-Dvs-304214:33 DRUG ASSAY-PHENOBARBITOL Comments: PATIENT NOT FASTINGPERFORMED BY: [address] [id number] Information: [id number] (75682) Pentobarbital None Detected ug/mL (Normal) Range: 1-5 [...] CHOL 158 mg/dL (Normal) Comments: <200 mg/dL Fkncivjdy469-604 mg/dL Borderline>240 mg/dL High Risk :16 PSA 1.08 ng/mL (Normal) Range: 0.00-4.00 Comments: This test was performed using the TPSA assay method for theTastyNow.com chemistry system. Values obtained with differentassay methods [...] >100 ng/mL (>250 nmol/L) :33 Rapid Flu (97898 x 2) Comments: neg Influenza A Ag [...] CHOL 169 mg/dL (Normal) Comments: <200 mg/dL Fnpaijqrv987-493 mg/dL Borderline>240 mg/dL High Risk TRIG 58 [...] - 250 nmol/L)Toxicity >100 ng/mL (>250 nmol/L) 57-Wev-397817:13 DEXA BONE DENSITY STUDY (HP) Radiology Report [...] Cunha M.D.September 26, 2012 at 4:13:45 PM [id number] Signed GP/GP If you are the referring physician and would like to consult with theradiologist who provided this interpretation, please contact Connie Gutiérrez at [phone]. If this radiologist is unavailable, youwill be directed to [facility] radiologist to assist. If you are a patient with a question regarding this report, pleasecontactyour referring physician directly. Professional Interpretation Provided By: [employer], Phone , These documents contain legally protected [...] destructionofthese documents. Dictated on 09/26/12 1528 by Yash Cunha MDribed on 09/26/12 163 by ITS IMPORTSign by Charbel Cunha MD [...] 10.0-40.0 PSA 1.36 ng/mL (Normal) Range: 0.00-4.00 : VITD 40.0 ng/mL (Normal) Range: 30.0-100.0 Comments: Vitamin D deficiency has been defined by the [place] ofMedicine and an Endocrine Society practice guideline as alevel of serum 25-OH vitamin D less than 20 ng/mL (1,2).The Endocrine Society went on to further define vitamin Dinsufficiency as a level between 21 and 29 ng/mL (2).1. IOM ([place] of Medicine). 2010. Dietary reference intakes for calcium and D. Heart [place]: The National Academies Press.2. Mely MF, Jus NC, Sophie GUARDADO, et al. Evaluation, treatment, and prevention of vitamin D deficiency: an Endocrine Society clinical practice guideline. JCEM. 2010; 96(): 1911-30.Performed at: - [facility] [id number] Director: Keith Nance PhD, Phone: [phone] DIL 12.4 ug/mL (Normal) Range: 10.0-20.0 [...] D deficiency has been defined by the [place] of[place] and an Endocrine Society practice guideline as alevel of serum 25-OH vitamin D less than 20 ng/mL (1,2).The Endocrine Society went on to further define vitamin Dinsufficiency as a level between 21 and 29 ng/mL (2).1. IOM ([place] of [place]). 2010. Dietary reference intakes for calcium and D. Heart [place]: The National Academies Press.2. Mely MF, Jus CASTILLO, Sophie GUARDADO, et al. Evaluation, treatment, and prevention of vitamin D deficiency: an Endocrine Society clinical practice guideline. JCEM. 2010; 96(7): 1911-30.Performed at: [address] [id number] Director: Jacquelyn Charles MD, Phone: [phone] 14-Mxh-078630:28 LOWER EXT.JOINT ONLY (ROUTINE) Radiology Report See [...] Go M.D.December 24, 2011 at 8:26:04 PM TElecour [facility] Signed DAVIDE/DAVIDE Professional Interpretation Provided By: [facility], , To consult with a radiologist regarding this report, please call our 2 [id number] line @ Dictated on 12/24/11 1335 by [...] ng/mL (Normal) Range: 0.0-4.0 :08 TEST FR [id number] 5.0 pg/mL (Abnormal) Range: 6.6-18.1 Comments: Performed at: - [facility] [place] [id number] Director: Jacquelyn Charles MD, Phone: [phone] at: [facility] LabCoKim[place]ly [place] [id number] Director: Joseph Sevilla MD, Phone: [phone] TSH 0.98 {uIU/mL} (Normal) Range: 0.358-3.74 :08 VIT D,25 35302 30.9 ng/mL (Abnormal) Range: 32.0-100.0 Comments: Effective July 19, 2011 Vitamin D, 25-Hydroxy reference intervals will be changing to 30-100. .Recent studies consider the lower li alta of 32.0 ng/mL to be athreshold for optimal health.Horace ROBLES. J Nutr. 2004;135(2):317-22. 2-Qzi-392382:57 DEXA BONE DENSITY STUDY (HP) Radiology Report See Note (Normal) Comments: Exam Number: [id number] LINICAL:This is a 59-year-old male patient with history of osteopenia. EXAMINATION:DUAL ENERGY X-RAY ABSORPTIOMETRY / DEXA. TECHNIQUE:Bone Density Measurements (BMD) of lumbar spi ne and bilateral hips were obtained using a Billogram scanner.. COMPARISON:Comparison is made with prior examination [...] below -2.5 Osteoporosis As a practical [facility] guideline, osteopenia may be graded as follows:Mild -1 through -1.5Moderate -1.6 through -2.0Severe -2.1 through -2.4 The Z-score is the number of standard deviations above or b elow age-matched controls. A Z-score of less than -1.5 would be considered abnormal. References:1. NIH Osteoporosis and Related Bone Diseases http://www.osteo.org2. International Society for Clinical Densitometry http://www.iscd.org3. National Osteoporosis Foundation http://www.nof.org Reported By: CHARBEL CUNHA 38-App-888335:52 CHEST, PA AND LATERAL (MT) Radiology Report See Note (Normal) Comments: Exam Number: [id number] LINICAL:59-year-old male complains of shortness of breath. [...] 3.7 mg/dL (Normal) Range: 2.5-4.9 :35 :35 PROT.[id number] GAMMA GLOB,U 19.7 % (Normal) M-SPIKE,U SeeNote % (Normal) Comments: Result: Not Observed NOTE Comment (Normal) Comments: Protein electrophoresis scan will follow via computer,mail, or oncology specialist delivery. ALBUMIN,UR 26.3 % (Normal) VYSUA-8-OPAM,U 2.7 % (Normal) EDTWX-1-KVSN,U 12.9 % (Normal) BETA GLOB,U 38.4 % (Normal) PROTEIN,UR 6.2 mg/dL (Normal) Range: 0.0-15.0 :35 PTH,Intact 42 pg/mL (Normal) Range: 14-72 :35 SPE [id number] A/G RATIO 1.4 (Normal) Range: 0.7-2.0 INTERPRETATION Comment (Normal) Comments: The SPE pattern appears essentially unremarkable. Evidenceof monoclonal protein is not apparent.Protein electrophoresis scan will follow via computer,mail, or oncology specialist delivery. ALBUMIN 3.9 g/dL (Normal) Range: 3.2-5.6 ALPHA-1 GLOBUL 0.3 g/dL (Normal) Range: 0.1-0.4 ALPHA-2 GLOBUL 0.7 g/dL (Normal) Range: 0.4-1.2 BETA GLOBULIN 0.8 g/dL (Normal) Range: 0.6-1.3 GAMMA GLOBULIN 0.9 g/dL (Normal) Range: 0.5-1.6 GLOBULIN, TOTAL 2.7 g/dL (Normal) Range: 2.0-4.5 M-SPIKE SeeNote g/dL (Normal) Comments: Result: Not Observed PROTEIN,TOTAL 6.6 g/dL (Normal) Range: 6.0-8.5 :35 TEST FR [id number] 3.4 pg/mL (Abnormal) Range: 6.6-18.1 :35 TSH 0.89 {uIU/mL} (Normal) Range: 0.358-3.74 :35 VIT D,25 78340 35.5 ng/mL (Normal) Range: 32.0-100.0 Comments: Recent studies consider the lower limit of 32.0 ng/mL to harsh threshold for optimal health.Horace ROBLES. J Nutr. 2004;135(2):317-22.Performed at: [facility] [address] [id number] Director: Jacquelyn Charles MD, Phone: [phone] at: [facility] [id number] Director: Joseph Sevilla MD, Phone: [phone] Plan of Care Name Dates Details Instructions [...] Indication: Seizure disorder Planned Observations DRUG ASSAY-PHENOBARBITOL (49764)Indication: Generalized convulsive seizure On: : Request Phenytoin (Dilantin) (49951)Indication: Generalized convulsive seizure On: : Request LIPID PANEL (57705)Indication: Bilateral carotid artery stenosis On: : Request C-REACT PROT HIGH SENS(hsCRP) (89532)Indication: Elevated high sensitivity C-reactive protein On: : Request CBC with auto diff (06881)Indication: Elevated hemoglobin A1c On: Request MICROALBUMIN: CREATININE RATIO (43085) AND (57925)Indication: Elevated hemoglobin A1c On: : Request METABOLIC PANEL, COMPREHENSIVE (09320)Indication: Elevated hemoglobin A1c On: : Request HGB A1C (33372)Indication: Elevated hemoglobin A1c On: : Request Phenytoin (Dilantin) (45873)Indication: Generalized convulsive seizure On: :40 Request CBC with auto diff (54133)Indication: Anemia On: : Request METABOLIC PANEL, COMPREHENSIVE (32299)Indication: Elevated hemoglobin A1c On: 4-Sux-144471:39 Request DRUG ASSAY-PHENOBARBITOL (58482)Indication: Generalized convulsive seizure On: 81-Oig-011470:38 Request FECAL OCCULT- Tubes sent home (72028)Indication: Anemia On: :31 Request IRON (87110)Indication: Anemia On: :31 Request LIPID PANEL (04160)Indication: Hyperlipidemia On: :30 Request METABOLIC PANEL, COMPREHENSIVE (97066)Indication: Elevated hemoglobin A1c On: 74-Kmv-713462:29 Request HGB A1C (97936)Indication: Elevated hemoglobin A1c On: 02-Vwo-355527:29 Request HGB A1C (81572)Indication: Prediabetes On: :17 Request CBC with auto diff (35573)Indication: Generalized convulsive seizure On: 4-Zqh-649204:13 Request C-REACT PROT HIGH SENS(hsCRP) (74518)Indication: Elevated high sensitivity C-reactive protein On: 4-Ogc-716317:13 Request LIPID PANEL (53072)Indication: Bilateral carotid artery stenosis On: 6-Dht-179383:12 Request METABOLIC PANEL, COMPREHENSIVE (53655)Indication: Bilateral carotid artery stenosis On: 7-Phb-160748:12 Request Phenytoin (Dilantin) (77310)Indication: Generalized convulsive seizure On: 5-Vdl-801076:00 Request Comments: 1 month Metabolic Panel, Basic (02717)Indication: Dizziness On: 4-Jya-408935:14 Request DRUG ASSAY-TOT PHENYTOIN (00952)Indication: Poisoning by phenytoin, accidental or unintentional, subsequent encounter On: 97-Ang-606200:35 Request Magnesium (38240)Indication: Dizziness On: 50-Bih-912169:28 Request Comments: stat CBC W/AUTO DIFF WBC (00433)Indication: Dizziness On: :28 Request Comments: stat TSH (28662)Indication: Dizziness On: 33-Ajw-831209:22 Request Comments: stat METABOLIC PANEL, COMPREHENSIVE (61628)Indication: Dizziness On: 50-Qjn-107754:22 Request Comments: stat DRUG ASSAY-PHENOBARBITOL (76678)Indication: Dizziness On: 16-Sig-584234:18 Request Comments: stat Phenytoin (Dilantin) (79663)Indication: Dizziness On: :18 Request Comments: stat VITAMIN B-12 (CYANOCOBALAMIN) (95209)Indication: Dizziness On: :13 Request DRUG ASSAY-PHENOBARBITOL (21910)Indication: Seizure disorder On: : Request Phenytoin (Dilantin) (70079)Indication: Seizure disorder On: : Request PSA (PROSTATE SPECIFIC ANTIGEN) (V76.44)Indication: Screening for prostate cancer On: : Request METABOLIC PANEL, COMPREHENSIVE (76800)Indication: Bilateral carotid artery stenosis On: :24 Request LIPID PANEL (06249)Indication: Bilateral carotid artery stenosis On: :24 Request Vitamin D Hydroxy (61338)Indication: Vitamin D deficiency, unspecified On: :24 Request Phenytoin (Dilantin) (96081)Indication: Seizure disorder On: :09 Request DRUG ASSAY-PHENOBARBITOL (37949)Indication: Seizure disorder On: 54-Lds-230782:09 Request PSA (PROSTATE SPECIFIC ANTIGEN) (V76.44)Indication: Encounter for screening for malignant neoplasm of prostate (Renamed from Screening for prostate cancer) On: :09 Request CBC W/AUTO DIFF WBC (14463)Indication: Seizure disorder On: 33-Mau-541025:09 Request METABOLIC PANEL, COMPREHENSIVE (57425)Indication: Seizure disorder On: 16-Nvx-741602:09 Request LIPID PANEL (14131)Indication: Bilateral carotid artery stenosis On: 95-Afh-528667:09 Request Vitamin D Hydroxy (26533)Indication: Vitamin D deficiency, unspecified On: 62-Uju-232098:08 Request METABOLIC PANEL, COMPREHENSIVE (80747)Indication: Osteoporosis On: :08 Request LIPID PANEL (79476)Indication: Bilateral carotid artery stenosis On: :52 Request DRUG ASSAY-PHENOBARBITOL (21661)Indication: Seizure disorder On: :52 Request Phenytoin (Dilantin) (00893)Indication: Seizure disorder On: 69-Hpx-098094:51 Request Vitamin D Hydroxy (22631)Indication: Vitamin D deficiency, unspecified On: :51 Request DRUG ASSAY-PHENOBARBITOL (32887)Indication: Seizure disorder On: :10 Request PSA (PROSTATE SPECIFIC ANTIGEN) (V76.44)Indication: Screening for prostate cancer On: :10 Request CBC W/AUTO DIFF WBC (64843)Indication: Seizure disorder On: :09 Request METABOLIC PANEL, COMPREHENSIVE (98181)Indication: Seizure disorder On: :09 Request LIPID PANEL (87652)Indication: Bilateral carotid artery stenosis On: :09 Request Phenytoin (Dilantin) (35176)Indication: Seizure disorder On: :06 Request Vitamin D Hydroxy (19699)Indication: Osteoporosis On: :00 Request DRUG ASSAY-PHENOBARBITOL (52788)Indication: Seizure disorder On: :49 Request Phenytoin (Dilantin) (50266)Indication: Seizure disorder On: 3-Num-350221:49 Request Phenytoin (Dilantin) (79403)Indication: Cardiac dysrhythmia On: :01 Request Culture, Aerobic, Bacterial ID (57987)Indication: Sebaceous cyst of ear On: 9-Lxm-974941:55 Request CBC WITH MANUAL DIFF (58049)Indication: Seizure disorder On: :49 Request METABOLIC PANEL, COMPREHENSIVE (74444)Indication: Osteoporosis On: :49 Request LIPID PANEL (92091)Indication: Bilateral carotid artery stenosis On: :49 Request Vitamin D Hydroxy (78797)Indication: Vitamin D deficiency, unspecified On: :46 Request CBC WITH MANUAL DIFF (77379)Indication: Seizure disorder On: :02 Request METABOLIC PANEL, COMPREHENSIVE (50753)Indication: Seizure disorder On: :02 Request LIPID PANEL (61844)Indication: Bilateral carotid artery stenosis On: :02 Request Phenytoin (Dilantin) (50059)Indication: Seizure disorder On: :01 Request Vitamin D Hydroxy (30562)Indication: Vitamin D deficiency, unspecified On: 14-Qdr-80402:59 Request PSA (PROSTATE SPECIFIC ANTIGEN) (V76.44)Indication: Screening for prostate cancer On: 39-Hbn-40603:57 Request Phenytoin (Dilantin) (85971)Indication: Seizure disorder On: 38-Dfn-954990:03 Request CBC WITH MANUAL DIFF (93875)Indication: Osteoporosis On: 79-Ugv-146297:03 Request METABOLIC PANEL, COMPREHENSIVE (35707)Indication: Osteoporosis On: 55-Kcc-552558:03 Request LIPID PANEL (25740)Indication: Bilateral carotid artery stenosis On: 10-Mgk-502566:03 Request Vitamin D Hydroxy (28813)Indication: Vitamin D deficiency, unspecified On: 86-Lsi-063955:02 Request TSH (25646)Indication: Osteoporosis On: 35-Ruq-984877:02 Request DRUG ASSAY-PHENOBARBITOL (67063)Indication: Seizure disorder On: 08-Wrf-483985:49 Request CBC with manual diff (91290)Indication: Encounter for long-term (current) use of medications On: 88-Afm-727039:47 Request Metabolic Panel, Comprehensive (31235)Indication: Encounter for long-term (current) use of medications On: 59-Eeg-683344:47 Request Lipid Panel (46758)Indication: Encounter for long-term (current) use of medications On: 63-Roi-543307:47 Request PSA (PROSTATE SPECIFIC ANTIGEN) (12351)Indication: Screening for prostate cancer On: 85-Urq-592073:47 Request Phenytoin (Dilantin) (93341)Indication: Seizure disorder On: 38-Nxw-367139:45 Request CALCIFEDIOL (85550)Indication: Vitamin D deficiency, unspecified On: 28-Sed-763771:44 Request DRUG ASSAY-PHENOBARBITOL (54114)Indication: Encounter for long-term (current) use of medications On: 28-Ilk-52227:32 Request DRUG ASSAY-PHENOBARBITOL (69846)Indication: Encounter for long-term (current) use of medications On: 56-Htv-126814:58 Request Vitamin D Hydroxy (13884)Indication: Vitamin D deficiency, unspecified On: 24-Txe-297113:32 Request METABOLIC PANEL, COMPREHENSIVE (34338)Indication: Seizure disorder On: :32 Request CBC WITH MANUAL DIFF (91171)Indication: Seizure disorder On: 64-Gxi-172441:32 Request Phenytoin (Dilantin) (12247)Indication: Seizure disorder On: :32 Request Phenytoin (Dilantin) (49356)Indication: Seizure disorder On: 91-Asx-798596:12 Request Phenytoin (Dilantin) (28043)Indication: Seizure disorder On: : Request Comments: 2 weeks PSA (PROSTATE SPECIFIC ANTIGEN) (V76.44)Indication: Screening for prostate cancer On: :30 Request TESTOSTERONE FREE (16869)Indication: Testicular hypofunction On: :29 Request LIPID PANEL (45473)Indication: Hypoglycemia On: :28 Request Vitamin D Hydroxy (07766)Indication: Vitamin D deficiency, unspecified On: :27 Request TSH (43523)Indication: Osteoporosis On: : Request CBC WITH MANUAL DIFF ([id number])Indication: Seizure disorder On: :27 Request METABOLIC PANEL, COMPREHENSIVE (25820)Indication: Seizure disorder On: :27 Request Phenytoin (Dilantin) (47082)Indication: Seizure disorder On: :27 Request CBC WITH MANUAL DIFF (51034)Indication: Osteoporosis On: 37-Aag-232097:09 Request METABOLIC PANEL, COMPREHENSIVE (63726)Indication: Seizure disorder On: 84-Thp-474400:09 Request TESTOSTERONE FREE (59371)Indication: Testicular hypofunction On: 12-Boy-627510:57 Request Vitamin D Hydroxy (88160)Indication: Vitamin D deficiency, unspecified On: 66-Aze-928449:57 Request Phenytoin (Dilantin) (19108)Indication: Seizure disorder On: 41-Wgi-579554:03 Request TESTOSTERONE FREE (16331)Indication: Osteoporosis On: 22-Swc-491032:09 Request Vitamin D Hydroxy (16840)Indication: Osteoporosis On: 22-Nwy-149258:03 Request TSH (80047)Indication: Osteoporosis On: 64-Ece-124034:03 Request UPEP (42962)Indication: Osteoporosis On: 31-Hhj-019410:03 Request SPEP (45652)Indication: Osteoporosis On: :03 Request PHOSPHORUS (51340)Indication: Osteoporosis On: :03 Request PARATHORMONE (49471)Indication: Osteoporosis On: :03 Request Planned Encounters Medical; PETE 3 Month FU - On: 29-Sep-2018 9:45 [facility] Fast DO, Jessica A Fast DO, Jessica A Planned Procedures ELECTROCARDIOGRAM, COMPLETE (ECG) On: 28-Jun-2018 Intent (03878)By: Fast DO, Jessica A Fast DO, Comments: ekg showed normal sinus rhythym, normal axis, no acute st/t wave changes sinus lokesh Jessica A Flu Vaccine (Quadrivalent) 43306Vf: On: 14-Jun-2018 Intent Fast DO, Jessica A Fast DO, Jessica A Comments: Lot #[id number]-4/30/2019Site-L dltd, IMDose prefilled syringegiven by: Yuly reviewed and ABN signed Radiology - Lumbar SpineBy: Fast DO, On: 21-Mar-2018 Intent Jessica A Fast DO, Jessica A Cartoid DopplerBy: Fast DO, Jessica A On: 21-Dec-2017 Intent Fast DO, Jessica A ELECTROCARDIOGRAM, COMPLETE (ECG) On: 20-Jun-2017 Intent (04261)By: Fast DO, Jessica A Fast DO, Comments: ekg showed normal sinus rhythym, normal axis, no acute st/t wave changes junctional lokesh Jessica A Ultrasound - ThyroidBy: Fast DO, On: 20-Jun-2017 Intent Jessica A Fast DO, Jessica A Flu Vaccine (Quadrivalent) 21961Ej: On: 20-Jun-2017 Intent Fast DO, Jessica A Fast DO, Jessica A Comments: Lot #[id number]/13/18ite-L dltd, IMDose prefilled syringegiven by:BIJAL Yusuf and ABN signed Radiology - Finger(s) - RightBy: Fast On: 15-Mar-2017 Intent DO, Jessica A Fast DO, Jessica A Comments: attn 2nd and 3 rd digit Radiology - Knee - Right - Weight On: 15-Mar-2017 Intent BearingBy: Fast DO, Jessica A Fast DO, Jessica A DEXA SCAN AXIAL SKELETON ([id number])By: On: 05-Nov-2016 Intent Fast DO, Jessica A Fast DO, Jessica A Comments: january Cartoid DopplerBy: Fast DO, Jessica A On: 05-Nov-2016 Intent Fast DO, Jessica A Comments: november PNEUM VAC ADLT/IMUMNOSPR, SBC/INTRM On: 05-Nov-2016 Intent (17371)By: Fast DO, Jessica A Fast DO, Comments: lot: [id number]: 02/05/18ite/route: L del/IMamt: 0.5mLVIS signed when applicableChelsea, MARIE Jessica A CT - Brain/Head (IV Contrast On: 05-May-2016 Intent Needed)By: Fast DO, Jessica A Fast DO, Jessica A Ultrasound - ThyroidBy: Fast DO, On: 05-May-2016 Intent Jessica A Fast DO, Jessica A Flu Vaccine (Quadrivalent) 26347Rq: On: 05-May-2016 Intent Fast DO, Jessica A Fast DO, Jessica A Comments: FLUlot: [id number]:02/25/17site:rt deltoidroute:IMdose:.5mlDEMICK, MA ELECTROCARDIOGRAM, COMPLETE (ECG) On: 14-Apr-2016 Intent (48360)By: Fast DO, Jessica A Fast DO, Comments: ekg showed sinus lokesh normal axis no acute change Jessica A Echo CompleteBy: Fast DO, Jessica A On: 14-Apr-2016 Intent Fast DO, Jessica A Nuclear Stress Test/Stress On: 14-Apr-2016 Intent SPECT/TreadmillBy: Fast DO, Jessica A Fast DO, Jessica A Overnight Pulse Ox(44181)By: Fast DO, On: 23-Oct-2015 Intent Jessiac A Fast DO, Jessica A Six Minute Walk Assessment (85562)By: On: 23-Oct-2015 Intent Fast DO, Jessica A Fast DO, Jessica A Ultrasound - AortaBy: Fast DO, Jessica On: 08-Aug-2015 Intent A Fast DO, Jessica A Flu Vaccine (Quadrivalent) 66386Vz: On: 08-Aug-2015 Intent Fast DO, Jessica A Fast DO, Jessica A Comments: lot [id number]: 6/30/2016site/route L shala, IMamt 0.5mlVIS and ABN signed when applicableChelsea, PRODUCT TECHNOLOGY SCIENTIST Six Minute Walk Assessment (49009)By: On: 08-Aug-2015 Intent Fast DO, Jessica A Fast DO, Jessica A Overnight Pulse OX (47251)By: Fast On: 08-Aug-2015 Intent DO, Jessica A Fast DO, Jessica A Cartoid DopplerBy: Fast DO, Jessica A On: 08-Aug-2015 Intent Fast DO, Jessica A IMMUNIZ ADMNIN, 1 VAC, SNGL/COMBO On: 17-Feb-2015 Intent (41346)By: Fast DO, Jessica A Fast DO, Jessica A DEXA SCAN AXIAL SKELETON (22720)By: On: 07-Oct-2014 Intent Fast DO, Jessica A Fast DO, Jessica A Flu Vaccine (Quadrivalent) 89997Tt: On: 03-Jul-2014 Intent Fast DO, Jessica A Fast DO, Jessica A Comments: lot:[id number]:dose:0.5mLRoute: IMlocation: L armgiven by: [facility] [place] ADMINISTRATION OF INFLUENZA VIRUS On: 03-Jul-2014 Intent VACCINE ([id number])By: Fast DO, Jessica A Fast DO, Jessica A Holter Monitor 24 hrsBy: Fast DO, On: 15-Mar-2014 Intent Jessica A Fast DO, Jessica A Cartoid DopplerBy: Fast DO, Jessica A On: 15-Mar-2014 Intent Fast DO, Jessica A IMMUNIZ ADMNIN, 1 VAC, SNGL/COMBO On: 14-Sep-2013 Intent (41184)By: Fast DO, Jessica A Fast DO, Jessica A FLU VAC, SPLIT, >3 YEARS, INTRAMUSC On: 14-Sep-2013 Intent (69341)By: Fast DO, Jessica A Fast DO, Comments: Lot #:[id number] date:mount given:0.5mlRoute: IMSite given: L dltdVIS and ABN signedGiven by: MYESHA Lozano Eprescribed prescriptions ([id number])By: On: 14-Sep-2013 Intent Rosario Dickson JALYN (Ankle Brachial Index) (81037)By: On: 17-Jan-2013 Intent Fast DO, Jessica A Fast DO, Jessica A Cartoid DopplerBy: Fast DO, Jessica A On: 17-Jan-2013 Intent Fast DO, Jessica A Eprescribed prescriptions ([id number])By: On: 17-Jan-2013 Intent Rosario Dickson DXA, BONE DENSITY, AXIAL SKELETON On: 20-Sep-2012 Intent (61429)By: Hola DO, Jessica A Fast DO, Jessica A Eprescribed prescriptions ([id number])By: On: 20-Sep-2012 Intent Rosario Dickson Six Minute Walk Assessment (53855)By: On: 24-Feb-2012 Intent Mast RN, Ángela Inhaler Demo (01102)By: Hola GOODSON, On: 26-Jan-2012 Intent Jessica A Fast DO, Jessica A Six Minute Walk Assessment (46700)By: On: 26-Jan-2012 Intent Fast DO, Jessica A Fast DO, Jessica A Overnight Pulse OX (60666)By: Hola On: 26-Jan-2012 Intent , Jessica A Fast DO, Jessica A Spirometry (70934)By: Yessi, On: 26-Jan-2012 Intent Rosario Comments: god effort and curve mod- severe obstruction TDAP VACCINE >7 IM (74505)By: On: 21-Jul-2011 Intent Rosario Dickson Comments: Lot #[id number]-[id number] arm, IMDose prefilledgiven by:Adalgisa KOVACS - OtherBy: Hola GOODSON, Jessica A Fast On: 21-Jul-2011 Intent Jessica GOODSON Comments: right foot FLU VAC, SPLIT, >3 YEARS, INTRAMUSC On: 21-Jul-2011 Intent (72016)By: Rosario Dickson Comments: pharmacy PNEUM VAC ADLT/IMUMNOSPR, SBC/INTRM On: 28-Jul-2010 Intent (15059)By: Jessica Limon DO, DO, Comments: Lot #[id number]-R armDose0.5mlgiven by:ATA Hernandez IMMUNIZ ADMNIN, 1 VAC, SNGL/COMBO On: 28-Jul-2010 Intent (71990)By: Fast DO, Jessica A Fast DO, Jessica A Overnight Pulse Ox([id number])By: Amanda FIGUEROA, On: 22-Jul-2010 Intent Ángela Six Minute Walk Assessment (50394)By: On: 22-Jul-2010 Intent Ángela Patel RN Overnight Pulse OX ([id number])By: Fast On: 15-Jun-2010 Intent DO, Jessica A Fast DO, Jessica A Six Minute Walk Assessment (41684)By: On: 15-Jun-2010 Intent Fast DO, Jessica A Fast DO, Jessica A DXA, BONE DENSITY, AXIAL SKELETON On: 15-Jun-2010 Intent ([id number])By: Fast DO, Jessica A Fast DO, Jessica A Radiology - Chest- PA and LatBy: Fast On: 15-Jun-2010 Intent DO, Jessica A Fast DO, Jessica A Spirometry ([id number])By: Fast DO Jessica On: 15-Jun-2010 Intent A Fast DO, Jessica A Comments: good effort and curve mod obst EKG (54054)By: Fast DO, Jessica A Fast On: 15-Jun-2010 [...] exam Hyperlipidemia : DISCONTINUED - LIPID PANEL (48672) Indication: Hyperlipidemia Elevated hemoglobin A1c : DISCONTINUED - HGB A1C (26076) Indication: Elevated hemoglobin A1c Low back pain [...] medic al issues: he was golfing in [place] car ride then low back radiating [...] point if changes mind he will let edunow- Encounter Diagnosis: Former smoker, BMI 27.0-27.9,adult, Chronic [...] libido is absent. Note for Physical exam: [facility]- dizziness is in general better [...] Test Results - Date: (04/07/16). Encounter Diagnosis: [facility] Wellness Physical, Former smoker, BMI 27.0-27.9,adult, Bilateral [...] patient does not have durable power of banking attorney or living will. 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
--- OUTSIDE RECORDS SUMMARY | 2018-11-19 14:41 | XMS RPT_ITS ---
:1950 Author Organization OHIP Support Name Relationship Address Phone UGO PARKSN Unavailable [address] + [place] [address] R Unavailable Unavailable Unavailable PARKS, MACY Unavailable [address] + [place] [address] R Unavailable Unavailable Unavailable PARKS, MACY Unavailable [address] + [place] [address] R Unavailable Unavailable Unavailable PARKS, MACY Unavailable [address] + [place] [address] R Unavailable Unavailable Unavailable PARKS, MACY Unavailable [address] + [place] [address] R Unavailable Unavailable Unavailable PARKS, MACY Unavailable [address] + [place] [address] R Unavailable Unavailable Unavailable PARKS, MACY Unavailable [address] + [place] [address] R Unavailable Unavailable Unavailable PARKS, MACY Unavailable [address] + [place] [address] R Unavailable Unavailable Unavailable PARKS, MACY Unavailable [address] + [place] [address] R Unavailable Unavailable Unavailable PARKS, MACY Unavailable [address] + [place] [address] R Unavailable Unavailable Unavailable PARKS, MACY Unavailable [address] + [place] [address] R Unavailable Unavailable Unavailable PARKS, MACY Unavailable [address] + [place] [address] R Unavailable Unavailable Unavailable PARKS, MACY Unavailable [address] + [place] [address] R Unavailable Unavailable Unavailable PARKS, MACY Unavailable [address] + [place] [address] R Unavailable Unavailable Unavailable Care Team Providers Name Role Phone Fast DO, Jessica A Attending Unavailable Fast DO, Jessica A Referring Unavailable Fast DO, Jessica A Consulting Unavailable Russel, [place] Attending Unavailable Fast, Jessica Referring Unavailable Kilner, Louisa Attending Unavailable Manuel Clinton Attending Unavailable Fast, Jessica Referring Unavailable Fast, Jessica Primary Care Unavailable Fast, Jessica Consulting Unavailable Russel, Pravin Attending Unavailable Russel, [place] Referring Unavailable Fast, Jessica Primary Care Unavailable Moodispaw, Neeraj Attending Unavailable Moodispaw, Neeraj Referring Unavailable Fast, Jessica Primary Care Unavailable Kilner, Louisa Attending Unavailable Sibilia, Carlos Attending Unavailable Fast, Jessica Primary Care Unavailable Fast, Jessica Referring Unavailable Fast, Jessica Primary Care Unavailable Fast, Jessica Attending Unavailable Wunning, Jeremiah Attending Unavailable Wunning, Jeremiah Referring Unavailable Fast, Jessica Primary Care Unavailable Fast, Jessica Attending Unavailable Fast, Jessica Referring Unavailable Fast, Jessica Primary Care Unavailable Fast, Jessica Attending Unavailable Fast, Jessica Referring Unavailable Fast, Jessica Primary Care Unavailable Fast, Jessica Attending Unavailable Fast, Jessica Primary Care Unavailable Fast, Jessica Attending Unavailable Fast, Jessica Referring Unavailable Fast, Jessica Primary Care Unavailable Sibilia, Carlos Attending Unavailable Sibilia, Carlos Referring Unavailable Fast, Jessica Primary Care Unavailable PROBLEMS PROBLEMS DATE TYPE CONDITION / CODE ATTENDING STATUS SOURCE 09/06/2018 Unknown R93.1 - Abnormal Neeraj Porter Active [place] findings on Community diagnostic imaging Hospital of heart and Repository coronary circulation / R93.1(ICD-10) 09/06/2018 Unknown E78.5 - Russel, Pravin Active [facility] Hyperlipidemia, Community unspecified / Hospital E78.5(ICD-10) Repository 09/06/2018 Unknown F17.200 - Nicotine Russel, Pravin Active [place] dependence, Community unspecified, Hospital uncomplicated / Repository F17.200(ICD-10) 07/17/2018 Unknown M81.0 - Age-related Fast, Jessica Active [facility] osteoporosis Community without current Hospital pathological Repository fracture / M81.0(ICD-10) 05/23/2018 Unknown M54.16 - Fast, Jessica Active [facility] Radiculopathy, Community lumbar region / Hospital M54.16(ICD-10) Repository 02/16/2018 Unknown R91.1 - Solitary Carlos Bowers Active [facility] pulmonary nodule / Community R91.1(ICD-10) Hospital Repository PROCEDURES PROCEDURES No Procedure Records FoundRESULTS RESULTS ACT ACTIVATED CLOTTING Collected: 09/15/2018 Status: F Source: [place] TIME 9:24 AM [facility] [place] TYPE CODE TESTS RESULT OUT OF RANGE REFERENCE UNITS LAB L9100.0100 74-137 sec High ACTk CLOT 241 TIME Performed By: #### L9100.0100 #### [facility] Laboratory Point of Care [address] [place] [address] CHEST PA AND LATERAL Observed: 09/07/2018 Status: F Source: [place] 10:53 AM [facility] [place] [facility] Imaging Services [address] [place] [address] Chest PA and Lateral MR#: [id number] Acct: [id number] Name: CHELI NEUMANN Rep #: [id number] : 1950 M 67 From: Phil Can MD PCP: Jessica Limon DO Status: PRE SDC Study: Chest PA and Lateral Date of Exam: 09/07/18 Exam# [id number] Ordering Dr: Pravin Goode MD STUDY: X-RAY [...] CC: Pravin Goode MD; Jessica Limon DO Leguillon Debeader: Signed BASIC METABOLIC Collected: 09/06/2018 Status: F Source: [place] PROFILE (BMP) 3:41 PM [facility] [place] TYPE CODE TESTS RESULT OUT OF [...] GAP 7 Performed By: #### L500.2500 #### [facility] [address] [place], [address] CBC W/DIFF, AUTOMATED Collected: 09/06/2018 Status: F Source: [place] 3:41 PM [facility] [place] TYPE CODE TESTS RESULT OUT OF [...] Lymph 2.78 Performed By: #### L100.0100 #### [facility] [address] [place], [address] CARDIOLOGY VISIT Observed: 09/06/2018 Status: F Source: [place] REPORT 3:00 PM [facility] [place] [facility] [address] [place], [place] [address] OFFICE VISIT Date of Service: 09/06/18 MR#: [id number] Acct: [id number] Name: CHELI NEUMANN Rep #: [id number] : 1950 Provider: Pravin Goode MD Age/Sex: 67/M [place] [facility] [place] S[place] [facility] Chief Complaint: Initial visit Details: CHELI NEUMANN, [...] PO QHS 07/05/18 [History Confirmed 09/06/18] Tiotropium [employer] [Spiriva] 18 mcg IH DAILY 07/05/18 [History Confirmed 09/06/18] albuterol sulfate HFA 90 mcg/actuation aerosol inhaler 1 puff INHALATION Q6H PRN 08/28/18 [History Confirmed 09/06/18] calcium carb 300 mg-D3 800 unit-mag ox 25 mg-scleroscope tester 0.5 mg-sergey-Zn tablet 2 tab PO DAILY 08/28/18 [History Confirmed 09/06/18] denosumab 60 mg/mL subcutaneous syringe 60 mg SC C3YALORT 08/28/18 [History Confirmed 09/06/18] aspirin 81 mg tablet,delayed release 81 mg PO QDAY #90 tab 09/06/18 [Rx Confirmed 09/06/18] cholecalciferol (vitamin D3) 1,000 unit/drop oral drops unit PO ml 09/06/18 [History Confirmed 09/06/18] clopidogrel 75 mg tablet 75 mg PO DAILY #30 tab 09/06/18 [Rx Confirmed 09/06/18] phenobarbital 16.2 mg tablet 64.8 mg PO DAILY 60 Days #240 tab 09/06/18 [History Confirmed 09/06/18] [facility] Medical History Hyperlipidemia (Chronic) Anemia [...] Other Medications New: Follow Up 6 Months (lifeguard) Coding Level of Care Code Off vis,new,level [...] Observed: 09/06/2018 Status: F Source: [place] BY [facility] [place] 1:58 PM [facility] [place] [facility] [address] [place] [address] 12 Lead EKG performed by [facility] [place] 09/06/18 1232 MR#: [id number] Acct: [id number] Name: THIENCADE Rep #: [id number] : 1950 67 From: Pravin Goode MD Attending Dr: Pravin Goode MD Status: DEP AMB Ordering Dr: Pravin Goode MD Date: 09/06/18 Location: [facility] [place] Sex: M C Admitted: BMS/12 Lead EKG performed by BMS ECG Report Interpretation Sinus Bradycardia Low voltage in limb leads. -RSR(V1) -nondiagnostic. ABNORMAL Electronically signed on 09/19/2018 at 13:15 by Pravin Goodewood Software Version 8610 09/19/18 1319 Date Pravin Goode MD CC: Jessica Limon DO Date Dictated: 09/06/18 1232 Date Transcribed: 09/06/18 123 Leguillon Debeader: CO Signed LIMITED CHEST CT Observed: 08/11/2018 Status: F Source: [place] W/CCTA 12:45 PM [facility] [place] [facility] Imaging Services [address] [place] [address] w/CCTA MR#: [id number] Acct: [id number] Name: CHELI NEUMANN Rep #: [id number] : 1950 M 67 From: Charbel Rivera MD PCP: Jessica Limon DO Status: REG CLI Study: Limited Chest CT w/CCTA Date of Exam: 08/11/18 Exam# [id number] Ordering Dr: Jessica Limon DO STUDY: CT [...] acute abnormality is seen. Electronically Signed: Charbel Rievra MD at 12:43 EST Tel [phone], Service support , CC: Jessica Limon DO Leguillon Debeader: Signed LOWER EXT/NO JT/W/O Observed: 08/08/2018 Status: F Source: [place] 9:42 AM [facility] [place] [facility] Imaging Services [address] [place] [address] Lower Ext/No Jt/w/o MR#: [id number] Acct: [id number] Name: CHELI NEUMANN Rep #: [id number] : 1950 67 From: Demarco Ellsworth MD PCP: Jessica Limon DO Status: REG CLI Study: Lower Ext/No Jt/w/o Date of Exam: 08/08/18 Exam# [id number] Ordering Dr: Jeremiah Banegas DPSaul STUDY: MRI [...] CC: Jessica Limon DO; Jeremiah Banegas DPM Legu[place] Debeader: Signed PT D/C SUMMARY (1) Observed: 05/23/2018 Status: F Source: [place] 1:03 PM [facility] [place] [facility] Physical Therapy [facility] [address] [place] [address]. [address] [place] [address] Fax REHABILITATION SERVICES DISCHARGE SUMMARY MR#: [id number] Acct: [id number] Name: CHELI NEUMANN Rep #: [id number] : 1950 67 From: Rose Colunga PT, [...] PAIN. DOING HEP BUT HASN'T GONE TO [facility] BUT PLANS TO WHEN GOLFING SEASON IS OVER. PATIENT STATES HE DOESN'T THINK HE HAS TAKEN ANY ADVIL FOR ABOUT A MONTH. DRIVING TO [employer]. FOR GOLF OUTING FOR A WEEK 36 [...] please feel free to call me at [phone]. Thank you for the referral of this patient. Sincerely, Rose Colunga <Electronically signed by Rose Colunga PT, Cert. MDT> 05/23/18 1303 CC: Jessica Limon DO ANDREA Signed RE-EVALUATION - PT (1) Observed: 04/18/2018 Status: F Source: [place] 2:36 PM [facility] [place] [facility] Physical Therapy [facility] [address] [place] [address]. [address] [place], [place] [address] Fax REEVALUATION / MEDICARE RECERTIFICATION PHYSICAL THERAPY MR#: [id number] Acct: [id number] Name: CHELI NEUMANN Rep #: [id number] : 1950 67 From: Rose Colunga PT, [...] REPORTS HE IS A MEMBER AT THE [employer]. STILL FEELING A LITTLE BIT OF TIGHTNESS [...] NO LONGER LIMPING ON LLE AND INCREASED MRAY STRIDE LENGTH. INDEP TRANSFERS. Motor deficit: MARY [...] do not hesitate to contact me at [phone] by phone or if you have questions or concerns regarding this new plan of care! Sincerely, Rose Colunga <Electronically signed by Rose Colunga PT, Cert. MDT> 04/18/18 8954 CC: Jessica Limon DO ANDREA Signed For Medicare only, by signing this I certify the plan of care. Physicians Signature Date INITAL EVALUATION (1) Observed: 03/28/2018 Status: F Source: [place] - [place] 2:11 PM [facility] [place] [facility] Physical Therapy [facility] [address] [place] [address] Fax REHABILITATION SERVICES INITIAL EVALUATION MR#: [id number] Acct: [id number] Name: CHELI NEUMANN Rep #: [id number] : 1950 67 From: Rose Colunga PT, [...] of: NO APPARENT REASON BUT DROVE TO [place] THE FOR A GOLF CLASS. THE WEEK [...] to be FAXED BACK to us at [phone] for Medicare purposes. Please let me know if there are questions or concerns regarding this plan of care. Physician Signature: Date: <Electronically signed by Rose Colunga PT, Cert. MDT> 03/28/18 1411 CC: Jessica Limon DO ANDREA Signed For Medicare only, by signing this I certify the plan of care. Physicians Signature Date CAROTID DUPLEX Observed: 03/24/2018 Status: F Source: [place] ULTRASOUND 7:29 AM [facility] [place] [facility] Cardiovascular Services [address] [place] [address] Carotid Duplex Ultrasound 03/20/18 0956 MR#: [id number] Acct: [id number] Name: CHELI NEUMANN Rep #: [id number] : 1950 67 From: David Mo MD Attending Dr: Jessica Limon DO Status: REG CLI Ordering Dr: Jessica Limon DO Date: 03/20/18 Location: [facility] Sex: M C Admitted: Reason For [...] the left vertebral artery. Procedure Carotid Duplex 30371. Exam performed in department. Interpretation Summary No significant atherosclerotic plaque or stenosis noted in the right internal carotid artery. Mild (<50%) stenosis left extracranial internal carotid. Flow within the vertebral arteries is antegrade bilaterally. Ordering Physician: Jessica Limon Referring Physician: Jessica Limon V Performed By: Bethany Brar RVT 03/24/1829 Date David Mo MD CC: Jessica Limon DO Date Dictated: 03/20/1856 Date Transcribed: 03/24/18728 Leguillon Debeader: Signed L/S SPINE MIN 4 Observed: 03/21/2018 Status: F Source: [place] VIEWS 12:11 PM [facility] [place] [facility] Imaging Services [address] [place] [address] L/S Spine Min 4 Views MR#: [id number] Acct: [id number] Name: CHELI NEUMANN Rep #: [id number] : 1950 M 67 From: Phil Lazcano MD PCP: Jessica Limon DO Status: REG CLI Study: L/S Spine Min 4 Views Date of Exam: 03/21/18 Exam# [id number] Ordering Dr: Jessica Limon DO STUDY: X-RAY [...] Service support , CC: Jessica Limon DO Leguillon Debeader: Signed CHEST WITHOUT Observed: 02/16/2018 Status: F Source: [place] CONTRAST 1:09 PM [facility] [place] [facility] Imaging Services [address] [place] [address] Chest without Contrast MR#: [id number] Acct: [id number] Name: CHELI NEUMANN Rep #: [id number] : 1950 67 From: Kali Diaz MD PCP: Jessica Limon DO Status: REG CLI Study: Chest without Contrast Date of Exam: 02/16/18 Exam# [id number] Ordering Dr: Carlos Bowers MD STUDY: CT [...] CC: Jessica Limon DO; Carlos Bowers MD Legu[place] Debeader: Signed LOW DOSE CT LUNG Observed: 11/16/2017 Status: F Source: [place] SCREENING 6:56 PM [facility] [place] [facility] Imaging Services [address] [place] [address] Lung Screening MR#: [id number] Acct: [id number] Name: CHELI NEUMANN Rep #: [id number] : 1950 M 66 From: Charbel Rivera MD PCP: Jessica Limon DO Status: REG CLI Study: Low Dose CT Lung Screening Date of Exam: 11/16/17 Exam# [id number] Ordering Dr: Carlos Bowers MD STUDY: LOW [...] Charbel Rivera MD at 10:24 EDT Tel [phone], Service support , CC: Jessica Limon DO; Carlos Bowers MD Leguillon Debeader: Signed ALLERGIES ALLERGIES DATE TYPE / CODE NAME / CODE REACTION SEVERITY SOURCE 09/06/2018 Drug No Known Unknown [facility] Allergy/4160 Allergies/F00 Hospital 23233(SNOMED 5140371(RXNOR Repository CT) M) ENCOUNTERS ENCOUNTERS ADMIT/DISCHARGE ACCOUNT ADMITTING ENCOUNTER LOCATION SOURCE NUMBER CLASS 09/15/2018 [id number] Ambulatory BMSBuilding:B [facility] 8 [place] Repository 09/15/2018/ [id number] Ambulatory [place] [facility] 9 [facility] ing:CLSP Repository 09/06/2018 [id number] [place] [facility] 4 [facility] ing:LAB Repository 09/06/2018/ [id number] Ambulatory BMSBuilding:B [place] 9 4 [place] Repository 08/28/2018 [id number] Ambulatory BMSBuilding:B [facility] 8 [place].[facility] Repository 08/14/2018 [id number] Ambulatory OHIP Practices Repository 08/11/2018 [id number] Ambulatory BMSBuilding:B [place] 8 [place].CF.[facility] Repository 08/11/2018 [id number] Ambulatory [place] [facility] 7 [facility] Hospital ing:CT Repository 08/08/2018 [id number] Ambulatory [place] [facility] 7 [facility] Hospital ing:MRI Repository 07/05/2018 [id number] [place] [facility] 3 [facility] Hospital ing:MEDOUTP Repository 05/23/2018/ [id number] [place]ulatory [place] [facility] 8 2 [facility] Hospital ing:PT Repository 03/21/2018 [id number] Ambulatory [place] 1 [facility] Hospital ing:HPRAD Repository 03/20/2018 [id number] Ambulatory [place] 3 [facility] Hospital ing:CVS Repository 02/16/2018 [id number] Ambulatory [place] 6 [facility] Hospital ing:CT Repository 11/16/2017 [id number] Ambulatory [place] 7 [facility] Hospital ing:CT Repository PAYERS PAYERS ENCOUNTER GUARANTOR PAYER SUBSCRIBER SOURCE 09/15/2018 CHELI Hernandez Primary CHELI Hernandez [place] [id number] Insurance:MEDICARE BECKETTDOB: Community [address] [facility] [id number] Number: Repository [address]Cyb: 330 [id number] [phone] () Date:2018-09-15 09/15/2018 Secondary CADE [facility] Insurance: LIFE BECKETTDOB: [facility] [place] [id number] Hospital Number: Repository [id number] Date:3550-99-60[address] [place] [address]BW: 09/15/2018 Tertiary NOT GIVENUNK [place] Insurance:SELF PAY [facility] Number: Effective Repository Date:2018-09-15 09/15/2018 CADE Primary CADE [place] [id number] Insurance:MEDICARE BECKETTDOB: Community [address] [facility] [id number] [place] Number: Repository [address]Otu: 330 [id number] [phone] () Date:2018-09-06 09/15/2018 Secondary CADE [facility] Insurance: LIFE BECKETTDOB: [facility] [place] [id number] Hospital Number: Repository [id number] Date:2640-77-74VD [address], [place] [address]KB: 09/15/2018 Tertiary NOT GIVENUNK [place] Insurance:SELF PAY [facility] Number: Effective Repository Date:2018-09-06 09/06/2018 CADE Primary CADE [place] [id number] Insurance:MEDICARE BECKETTDOB: Community [address] [facility] [id number], [place] Number: Repository [address]Sfl: 330 [id number] [phone] () Date:2018-09-06 09/06/2018 Secondary CADE [facility] Insurance: LIFE BECKETTDOB: [facility] [place] [id number] Hospital Number: Repository [id number] Date:1104-03-89MK [address] [address]BDLPLVZXT, [place] [address]BY: 09/06/2018 Tertiary NOT GIVENUNK [facility] Insurance:SELF PAY [facility] Hospital Number: Effective Repository Date:2018-09-06 09/06/2018 CADE Primary CADE [place] [id number] Insurance:MEDICARE BECKETTDOB: Community [address] [facility] [id number] [place] Number: Repository [address]Qzp: 330 [id number] [phone] () Date:2018-08-16 09/06/2018 Secondary CADE [facility] Insurance: LIFE BECKETTDOB: Community [place]Policy [id number] Hospital Number: Repository [id number] Date:1608-81-58OS [address] [address]SRIXSUWQ[place], [place] [address]JN: 09/06/2018 Tertiary NOT GIVENUNK [place] Insurance:SELF PAY [facility] Hospital Number: Effective Repository Date:2018-08-23 08/28/2018 CADE Primary CADE [facility] [id number] Insurance:MEDICARE BECKETTDOB: Community [address] A [facility] [id number] Park [facility] [place] Number: Repository [address]Vdk: 330 [id number] [phone] () Date:2018-08-28 08/28/2018 Secondary CADE [place] [facility] Insurance: LIFE BECKETTDOB: Community [place] [id number] Hospital Number: Repository [id number] Date:5997-99-48CD [address] [address]JHJPT[address], [place] [address]MU: 08/28/2018 Tertiary NOT GIVENUNK [facility] Insurance:SELF PAY [facility] Hospital Number: Effective Repository Date:2018-08-28 08/14/2018 CADE Primary CHELI Hernandez [place] Practices BECKETTDOB: Insurance:MedicarePol BECKETTDOB: Repository icy Number: [id number] [place] [id number] [address] [address]n[place], [place] Date:6948-87-86Cbyb [place], [place] [address]Mzc: 330) Name:ADVANCED MANAGERnAa Allen [address]Szy: [id number] [place], [place] -[address] (HP) (HP)Tel: [phone]: ([phone] 08/14/2018 Secondary CHELI Hernandez [place]IP Practices Insurance: Beth BECKETTDOB: Repository Insurance [id number] [facility] Number: Martina [id number] [facility], [place] Date:0474-15-98Bzfn [address]Rua: Name:Dariel, ~(3 [place] [id number]: [phone] 08/14/2018 Tertiary CHELI Hernandez [place]IP Practices Insurance:Mentor MORIAHSHYANNDOB: Repository [facility] [id number] Number: Martina [id number] [facility], [place] Date:2009-08-29 [address]Ohf: 5076-22-25Trre ~(3 Name:[facility] [address] () [address], [place] [address]VA: 08/11/2018 CHELI Hernandez Primary Insurance:[facility] CHELI Hernandez [place] [id number] PACKAGE PLANPolicy BECKETTDOB: [facility] Number: [id number], [place] [id number] Repository [address]Aek: (330) Date:2018-08-01-3405 (HP) 08/11/2018 Secondary NOT GIVENUNK [place] Insurance:SELF PAY [facility] Number: Effective Repository Date:2018-08-11 08/11/2018 CHELI Hernandez Primary Insurance:[facility] CHELI Hernandez [place] [id number] PACKAGE PLANPolicy BECKETTDOB: [facility] [place] Number: [id number], [place] [id number] Repository [address]Esc: (330) Date:2018-08-0193 () 08/11/2018 Secondary NOT GIVENUNK [facility] Insurance:SELF PAY [facility] Number: Effective Repository Date:2018-08-01 08/08/2018 CADE Primary CHELI Hernandez [place] [id number] Insurance:MEDICARE BECKETTDOB: Community [address] PART A [facility] [id number]. Mary's [facility] Number: Repository [address]Zqs: [phone] [id number] () Date:2018-07-28 08/08/2018 Secondary CADE [place] [facility] Insurance: LIFE BECKETTDOB: Community [place]Policy [id number] Hospital Number: Repository [id number] Date:4740-65-61BT [address] [address]TCHJQCSCZ, [place] [address]JI: 08/08/2018 Tertiary NOT GIVENUNK [place] Insurance:SELF PAY [facility] Hospital Number: Effective Repository Date:2018-07-28 07/05/2018 CADE Primary CADE [facility] [id number] Insurance:MEDICARE BECKETTDOB: Community [address] PART A [facility] [id number] Park Hospital [place] Number: Repository [address]Xsb: 330 [id number] () Date:2018-07-03 07/05/2018 Secondary CADE [place] Insurance: LIFE BECKETTDOB: Community [place] [id number] Hospital Number: Repository [id number] Date:1295-27-36FZ [address] [address]DVZMMDLQL, [place] [address]ON: 07/05/2018 Tertiary NOT GIVENUNK [place] Insurance:SELF PAY [facility] Hospital Number: Effective Repository Date:2018-07-03 05/23/2018 CADE Primary CADE [facility] [id number] Insurance:MEDICARE BECKETTDOB: Community [address] PART A [facility] [id number] Park Hospital [place] Number: Repository [address]Kfw: 330 [id number] () Date:2014-10-27 05/23/2018 Secondary CADE [place] Insurance: LIFE BECKETTDOB: Community [place] [id number] Hospital Number: Repository [id number] Date:8985-49-82AC [address] [address]YKAHSDERN, [place] [address]JH: 05/23/2018 Tertiary NOT GIVENUNK [place] Insurance:SELF PAY Community [facility] Rep[facility] Date:2018-03-21 03/21/2018 CADE Primary CHELI Hernandez Crow [id number] Insurance:MEDICARE BECKETTDOB: Community MEADOW PART A [facility] [id number] Number: Repository [id number]: [phone] [id number] [phone] () Date:2018-03-21 03/21/2018 Secondary CHELI Hernandez Crow Insurance: LIFE BECKETTDOB: Community [place]. [place].Policy [id number] Hospital Number: Repository [id number] Date:1458-22-47[address]Q [address] [address]QX[place], [place] [address]DF: 03/21/2018 Tertiary NOT GIVENUNK [place] Insurance:SELF PAY Community [facility] Number: Effective Repository Date:2018-03-21 03/20/2018 CADE Primary CHELI Hernandez Crow [id number] Insurance:MEDICARE BECKETTDOB: Community MEADOW PART A [facility] [id number] Number: Repository [id number]: [phone] [id number] [phone] () Date:2018-03-13 03/20/2018 Secondary CHELI Hernandez Crow Insurance: LIFE BECKETTDOB: Community [place]. [place].Policy [id number] Hospital Number: Repository [id number] Date:6710-48-80KG [address] [address]TDCQ[place] [address]XC: 03/20/2018 Tertiary NOT GIVENUNK [place] Insurance:SELF PAY Community [facility] Number: Effective Repository Date:2018-03-13 02/16/2018 CADE Primary CHELI Hernandez [place] [id number] Insurance:MEDICARE BECKETTDOB: Community MEADOW PART A [facility] [id number] Number: Repository [id number]: [phone] [id number] [phone] () Date:2018-01-09 02/16/2018 Secondary CADE Crow Insurance: LIFE BECKETTDOB: Community [place]. [place].Policy [id number] Hospital Number: Repository [id number] Date:6122-79-15DE [address] [address]MDMTFNSZ, [place] [address]DS: 02/16/2018 Tertiary NOT GIVENUNK [place] Insurance:SELF PAY [facility] Number: Effective Repository Date:2018-01-09 11/16/2017 CADE Primary CADE Crow [id number] Insurance:MEDICARE BECKETTDOB: [facility] MEADOW PART A [facility] [id number] Number: Repository [id number]: [phone] [id number] [phone] () Date:2017-11-14 11/16/2017 Secondary CADE [place] Insurance: LIFE BECKETTDOB: Community [place]. [place].Policy [id number] Hospital Number: Repository [id number] Date:2824-78-42JY [address] [address]OLGEDGV [place] [address]OO: 11/16/2017 Tertiary NOT GIVENUNK [place] Insurance:SELF PAY [facility]: Effective Repository Date:2017-11-14
== END 2018-09-15 13:15 | disposition home or self-care (01) ==
PROVIDERS: Family Provider Internal Medicine; PCP Internal Medicine; Referring Provider Internal Medicine Cardiovascular Disease; Visit Provider Internal Medicine Cardiovascular Disease
DX: I25.10 Atherosclerotic heart disease of native coronary artery without angina pectoris (principal); R93.1 Abnormal findings on diagnostic imaging of heart and coronary circulation; E78.5 Hyperlipidemia, unspecified; D64.9 Anemia, unspecified; J44.9 Chronic obstructive pulmonary disease, unspecified; F32.9 Major depressive disorder, single episode, unspecified; R91.1 Solitary pulmonary nodule; G47.33 Obstructive sleep apnea (adult) (pediatric); M81.0 Age-related osteoporosis without current pathological fracture; I73.9 Peripheral vascular disease, unspecified; G40.909 Epilepsy, unspecified, not intractable, without status epilepticus; Z87.891 Personal history of nicotine dependence
CPT/HCPCS: 71046; 85347; 93005; 93458; 93571; 99152; 99153; J7040; Q9967; C1769; C1887; C1894

== ENCOUNTER → 2018-10-03 12:26 | Outpatient (CLI) | payer MEDICARE, OTHER, SELFPAY ==
[2018-09-14 07:47] VITALS: BMI 27.3
--- NOTE | 2018-10-03 12:28 | US_ITS ---
STUDY: THYROID ULTRASOUND REASON FOR EXAM: Male, 67 years old. Nodule. TECHNIQUE: Ultrasound evaluation of the thyroid was performed with real-time and static iqbal-scale imaging. COMPARISON: June 22, 2017. FINDINGS: RIGHT LOBE: The right lobe of the thyroid gland measures 4.3 x 2.0 x 1.7 cm. There is a homogeneous echotexture. There is a 0.5 x 0.4 x 0.3 cm hypoechoic nodule along the anterior margin of the upper lobe. There is normal vascularity on Doppler imaging. LEFT LOBE: The left lobe of the thyroid gland measures 4.3 x 1.8 x 1.7 cm. There is a homogeneous echotexture. There is a 0.8 x 0.5 x 0.5 cm minimally hypoechoic nodule in the lower pole. There is normal vascularity on Doppler imaging. ISTHMUS: The isthmus measures 0.4 . The regional lymph nodes are normal. US/Thyroid IMPRESSION: Essentially stable findings when compared to prior study. Electronically Signed: Boston Mendez DO at 18:56 EST Tel [phone], Service support ,
== END ==
PROVIDERS: Family Provider Internal Medicine; PCP Internal Medicine; Referring Provider Internal Medicine; Visit Provider Internal Medicine
DX: E04.1 Nontoxic single thyroid nodule (principal)
CPT/HCPCS: 76536

== ENCOUNTER → 2018-11-06 12:31 | Outpatient (CLI) | payer MEDICARE, OTHER, SELFPAY ==
[2018-08-11 12:52] VITALS: BMI 26.4
[2018-09-14 07:47] VITALS: BMI 27.3
--- NOTE | 2018-11-06 12:34 | CT_ITS ---
STUDY: CT CHEST WITHOUT CONTRAST REASON FOR EXAM: Male, 67 years old. Follow-up pulmonary nodule RADIATION DOSAGE (If Supplied By Facility): CTDIvol = ( 15.21 ) mGy, DLP = ( 596.82 ) mGycm TECHNIQUE: Transaxial imaging was performed without the administration of intravenous contrast material. Coronal and sagittal 2-D MPR Individualized dose optimization techniques were used for this CT. COMPARISON: X-ray chest 09/07/2017, CT chest 02/16/2018, 11/16/2017. FINDINGS: Supraclavicular: No acute process. Body wall soft tissues: No acute process. Upper abdomen: Multiple benign hepatic cysts. Benign-appearing renal cysts. Stable. 4 mm nonobstructing calyceal calculus of the right renal superior pole. Osseous structures: No acute process. Mediastinum: Normal esophagus. No mass or lymphadenopathy. Cardiovascular: No cardiomegaly or pericardial effusion. Prominent three-vessel coronary calcifications. Mild aortic valve leaflet calcifications. Nondilated aorta with mild arch atherosclerosis. Nondilated central pulmonary arteries. Lungs: Generalized pulmonary hyperlucency and hyperinflation with features of centrilobular emphysema at the apices in particular. Consistent with the patient's smoking history. There is a chronic band of linear atelectasis or scar at the left lung base. Right upper lobe posterior segment noncalcified pulmonary nodule measuring approximately 8 mm, unchanged compared to prior imaging of 11/16/2017. A few additional tiny scattered pulmonary nodules are present, also unchanged. No acutely suspicious lesion is evident. CT/Chest without Contrast IMPRESSION: Stable chest. Right upper lobe pulmonary nodule measuring approximate 8 mm is unchanged in 1 year. Follow-up imaging, low-dose CT chest in 1 year is recommended both for completion of 2 year follow-up of the right upper lobe pulmonary nodule and for continued annual lung cancer screening. Prominent features of COPD/emphysema. Prominent coronary atherosclerosis. Electronically Signed: Mike Mendoza MD at 17:31 EDT Tel , Service support ,
== END ==
PROVIDERS: Family Provider Internal Medicine; PCP Internal Medicine; Referring Provider Internal Medicine Pulmonary Disease; Visit Provider Internal Medicine Pulmonary Disease
DX: R91.1 Solitary pulmonary nodule (principal)
CPT/HCPCS: 71250

== ENCOUNTER → 2019-02-01 13:56 | Outpatient (CLI) | payer MEDICARE, OTHER, SELFPAY ==
[2018-09-14 07:47] VITALS: BMI 27.3
[2019-02-01] MEDS: DENOSUMAB 60 MG/ML ML SQ (14:14)
[2019-02-01 14:17] VITALS: BP 113/72; PULSE 63; RESP 16; TEMP 36.7; O2SAT 99; BMI 27.3
== END ==
PROVIDERS: Family Provider Internal Medicine; PCP Internal Medicine; Referring Provider Internal Medicine; Visit Provider Internal Medicine
DX: M81.0 Age-related osteoporosis without current pathological fracture (principal)
CPT/HCPCS: 96372; J0897

== ENCOUNTER → 2019-04-16 08:14 | Outpatient (CLI) | payer MEDICARE, OTHER, SELFPAY ==
[2019-02-01 14:17] VITALS: BMI 27.3
--- NOTE | 2019-04-16 08:21 | RAD_ITS ---
STUDY: X-RAY - MANDIBLE (COMPLETE) REASON FOR EXAM: Male, 68 years old. Right mandibular pain. TECHNIQUE: 5 view(s) of the mandible were obtained. COMPARISON: None. FINDINGS: No acute fracture, dislocation or osseous destruction. Osteopenia. No significant joint space narrowing. No significant productive changes. Visualized sinuses. No significant soft tissue swelling. Dental fillings. RAD/Mandible Min 4 Views IMPRESSION: Mandible intact If clinical symptoms persist consider dental evaluation and/or CT/MRI follow-up Electronically Signed: David Perez DO at 9:31 EDT Tel , Service support ,
== END ==
PROVIDERS: Family Provider Internal Medicine; PCP Internal Medicine; Referring Provider Internal Medicine; Visit Provider Internal Medicine
DX: R68.84 Jaw pain (principal)
CPT/HCPCS: 70110

== ENCOUNTER → 2019-04-17 12:50 | Outpatient (CLI) | payer MEDICARE, OTHER, SELFPAY ==
[2019-02-01 14:17] VITALS: BMI 27.3
--- NOTE | 2019-04-17 12:52 | CDU_ITS ---
Reason For Study: Carotid artery stenosis Rt. Velocities/BP Lt. Velocities/BP Prox CCA 136.7/33.6 cm/sec. Prox CCA 110.1/26.1 cm/sec. Mid CCA 101.6/27 cm/sec. Mid CCA 95.5/29.8 cm/sec. Dist CCA 82.7/26.1 cm/sec. Dist CCA 91.9/26.1 cm/sec. Prox ICA 73.6/18.8 cm/sec. Prox ICA 65.5/21.2 cm/sec. Mid ICA 67.9/18.8 cm/sec. Mid ICA 83.9/29.8 cm/sec. Dist ICA 66.7/28.6 cm/sec. Dist ICA 79/26.2 cm/sec. Rt. ICA/CCA = 0.7. Lt. ICA/CCA = 0.9. Prox ECA 93.7/22.5 cm/sec. Prox ECA 119.3/18.8 cm/sec. Rt. Vert. 49.8/20.1 cm/sec. Lt. Vert. 46.6/15.4 cm/sec. Right Extracranial There is homogeneous, smooth atherosclerotic plaque noted in the right common carotid artery. There is intimal thickening but no significant atherosclerotic plaque noted in the right internal carotid artery. There is homogeneous, smooth atherosclerotic plaque noted in the right external carotid artery. Antegrade flow is noted in the right vertebral artery. Left Extracranial There is homogeneous, smooth atherosclerotic plaque noted in the left common carotid artery. There is heterogeneous, irregular atherosclerotic plaque noted in the left internal carotid artery. There is heterogeneous, irregular atherosclerotic plaque noted in the left external carotid artery. Antegrade flow is noted in the left vertebral artery. Procedure Carotid Duplex 57620. Exam performed in department. Interpretation Summary Mild (<50%) stenosis right extracranial internal carotid. Mild (<50%) stenosis left extracranial internal carotid. Flow within the vertebral arteries is antegrade bilaterally. Ordering Physician: Jessica Simental Referring Physician: Jessica Simental Performed By: Sunni Lanier RVT
== END ==
PROVIDERS: Family Provider Internal Medicine; PCP Internal Medicine; Referring Provider Internal Medicine; Visit Provider Internal Medicine
DX: I65.23 Occlusion and stenosis of bilateral carotid arteries (principal)
CPT/HCPCS: 93880

== ENCOUNTER → 2019-05-15 14:34 | Outpatient (CLI) | payer MEDICARE, OTHER, SELFPAY ==
[2019-02-01 14:17] VITALS: BMI 27.3
--- NOTE | 2019-05-15 14:36 | CT_ITS ---
HISTORY: JAW PAIN ON RIGHT X 2 MONTHS. MARKED WITH BB TECHNIQUE: CT images of the facial bones were obtained without IV contrast. A radiation dose optimization technique was used for this scan. COMPARISON: None FINDINGS: Number of images including paperwork: [phone] BONES: No displaced facial bone fracture. No suspicious bone lesion. Moderate degenerative changes of the temporomandibular joints. VISUALIZED PARANASAL SINUSES: No air fluid level. VISUALIZED MASTOID AIR CELLS: Clear. DENTITION: Periapical lucency about the right mandibular second bicuspid which is near the level of the BB and adjacent to the mental foramen. Periapical lucency also noted about the left mandibular second molar. And left maxillary second bicuspid ORBITAL CONTENTS: Unremarkable. SOFT TISSUES: No focal soft tissue swelling. CT/Sinus/Facial Bone IMPRESSION: No acute osseous abnormality. Multiple periapical lucencies, one of which is near the region of the marker BB. Recommend dental evaluation. Individualized dose optimization techniques were used for this CT. at 2311 Reported and signed by: Nereida Borrego MD Electronically Signed: Nereida Borrego MD at 23:11 EDT Tel , Service support ,
== END ==
PROVIDERS: Family Provider Internal Medicine; PCP Internal Medicine; Referring Provider Internal Medicine; Visit Provider Internal Medicine
DX: R68.84 Jaw pain (principal)
CPT/HCPCS: 70486

== ENCOUNTER → 2019-07-06 15:19 | Outpatient (CLI) | payer MEDICARE, OTHER, SELFPAY ==
[2019-02-01 14:17] VITALS: BMI 27.3
--- NOTE | 2019-07-06 15:49 | VDLE_ITS ---
Reason For Study: edema RIGHT LEFT GSV is normal. GSV is normal. CFV is compressible, spontaneous, phasic, CFV is compressible, spontaneous, phasic, competent and demonstrates normal competent, and demonstrates normal augmentation. augmentation. FV is compressible, spontaneous, phasic, FV is compressible, spontaneous, phasic, competent and demonstrates normal competent and demonstrates normal augmentation. augmentation. POP V is compressible, spontaneous, phasic, POP V is compressible, spontaneous, phasic, competent and demonstrates normal competent and demonstrates normal augmentation. augmentation. T/P Trunk is compressible. T/P Trunk is compressible. PTV is compressible. PTV is compressible. RT PerV is compressible. LT PerV is compressible. Procedure Exam performed in department. The exam was diagnostic. A preliminary report was called and/or faxed to Dr. Simental @ 4:08 pm. Interpretation Summary No evidence for acute deep venous thrombosis bilateral lower extremities with patent and compressible bilateral great saphenous veins. Ordering Physician: Jessica Simental Referring Physician: Jessica Simental Performed By: Natalie Sarabia, RDRAFAEL, RVT
== END ==
PROVIDERS: Family Provider Internal Medicine; PCP Internal Medicine; Referring Provider Internal Medicine; Visit Provider Internal Medicine
DX: R60.0 Localized edema (principal)
CPT/HCPCS: 93970

== ENCOUNTER → 2019-11-01 08:46 | Outpatient (CLI) | payer MEDICARE, OTHER, SELFPAY ==
[2019-09-13 10:47] VITALS: BMI 26.0
--- NOTE | 2019-11-01 08:49 | US_ITS ---
STUDY: THYROID ULTRASOUND REASON FOR EXAM: Male, 68 years old. NODULES TECHNIQUE: Ultrasound evaluation of the thyroid was performed with real-time and static iqbal-scale imaging. COMPARISON: 10/03/2018. FINDINGS: RIGHT LOBE: The right lobe of the thyroid gland measures 4.6 x 1.8 x 1.6 cm. There is a homogeneous echotexture. Stable 5 mm hypoechoic nodule of the mid right thyroid lobe. LEFT LOBE: The left lobe of the thyroid gland measures 4.4 x 1.5 x 1.7 cm. There is a homogeneous echotexture. Stable 8 mm solid lower pole nodule. ISTHMUS: The isthmus measures 4 mm . The regional lymph nodes are normal. US/Thyroid IMPRESSION: No change. Stable bilateral subcentimeter cysts. Electronically Signed: Kali Diaz MD at 17:20 EST , Service support ,
== END ==
PROVIDERS: PCP Internal Medicine; Referring Provider Internal Medicine; Visit Provider Internal Medicine
DX: E04.1 Nontoxic single thyroid nodule (principal)
CPT/HCPCS: 76536

== ENCOUNTER → 2019-11-07 13:00 | Outpatient (CLI) | payer MEDICARE, OTHER, SELFPAY ==
[2019-02-01 14:17] VITALS: BMI 27.3
[2019-09-13 10:47] VITALS: BMI 26.0
--- NOTE | 2019-11-07 13:04 | CT_ITS ---
STUDY: CT CHEST WITHOUT CONTRAST REASON FOR EXAM: Male, 68 years old. PT STATED F/U TO LUNG NODULE RADIATION DOSAGE (If Supplied By Facility): CTDIvol = ( 11.91 ) mGy, DLP = ( 461.38 ) mGycm TECHNIQUE: Transaxial imaging was performed without the administration of intravenous contrast material. Individualized dose optimization techniques were used for this CT. COMPARISON: 11/06/2018 FINDINGS: Right upper lobe noncalcified nodule now measures up to 1 cm, previously 8 mm. The identified diffuse emphysematous changes. New groundglass nodule at the right base measures up to 1 cm There is no demonstrated pleural abnormality. Coronary artery calcifications are noted. Normal heart size. Unenhanced mediastinum and hilar regions are grossly unremarkable. Normal unenhanced pulmonary arteries. Normal aorta arch and descending thoracic aorta. Normal osseous structures. Hepatic cysts are grossly similar in appearance. Stable right upper pole renal stone. The characterize right renal cyst. CT/Chest without Contrast IMPRESSION: Interval increase in size of right upper lobe pulmonary nodule as above. Consider PET/CT or biopsy for further evaluation. New groundglass nodule in the right lower lobe. Electronically Signed: Yuval Gauthier, at 17:33 EDT Tel , Service support ,
== END ==
PROVIDERS: Family Provider Internal Medicine; PCP Internal Medicine; Referring Provider Internal Medicine Pulmonary Disease; Visit Provider Internal Medicine Pulmonary Disease
DX: R91.1 Solitary pulmonary nodule (principal)
CPT/HCPCS: 71250

== ENCOUNTER → 2020-04-21 09:48 | Outpatient (CLI) | payer MEDICARE, OTHER, SELFPAY ==
[2019-09-13 10:47] VITALS: BMI 26.0
--- NOTE | 2020-04-21 09:51 | CDU_ITS ---
Reason For Study: Bilateral Stenosis Rt. Velocities/BP Lt. Velocities/BP Prox CCA 127/23 cm/sec. Prox CCA 147/27 cm/sec. Mid CCA 127/25 cm/sec. Mid CCA 122/25 cm/sec. Dist CCA 113/29 cm/sec. Dist CCA 86/22 cm/sec. Prox ICA 111/21 cm/sec. Prox ICA 92/33 cm/sec. Mid ICA 84/20 cm/sec. Mid ICA 122/47 cm/sec. Dist ICA 116/37 cm/sec. Dist ICA 105/40 cm/sec. Rt. ICA/CCA = 0.9. Lt. ICA/CCA = 1.0. Prox ECA 101/20 cm/sec. Prox ECA 109/23 cm/sec. Rt. Vert. 62/17 cm/sec. Lt. Vert. 63/16 cm/sec. Right Extracranial There is intimal thickening but no significant atherosclerotic plaque noted in the right common carotid artery. There is intimal thickening but no significant atherosclerotic plaque noted in the right internal carotid artery. There is homogeneous, smooth atherosclerotic plaque noted in the right external carotid artery. Antegrade flow is noted in the right vertebral artery. Left Extracranial There is heterogeneous, irregular atherosclerotic plaque noted in the left common carotid artery. There is heterogeneous, irregular atherosclerotic plaque noted in the left internal carotid artery. There is intimal thickening but no significant atherosclerotic plaque noted in the left external carotid artery. Antegrade flow is noted in the left vertebral artery. Interpretation Summary Mild (<50%) stenosis right extracranial internal carotid. Mild (<50%) stenosis left extracranial internal carotid. Flow within the vertebral arteries is antegrade bilaterally. Ordering Physician: Jessica Simental Referring Physician: Jessica Simental Performed By: Elyse Ashford, RDCS, RVT
== END ==
PROVIDERS: PCP Internal Medicine; Referring Provider Internal Medicine; Visit Provider Internal Medicine
DX: I65.23 Occlusion and stenosis of bilateral carotid arteries (principal)
CPT/HCPCS: 93880

== ENCOUNTER 2020-11-04 11:40 | Outpatient (RCR) | payer MEDICARE, SELFPAY ==
[2020-09-18 10:20] VITALS: BMI 26.0
[2020-11-04] MEDS: COVID-19 VACC, MRNA(PFIZER)/PF 30 MCG/0.3 ML SYRINGE IM (09:01)
[2020-11-25] MEDS: COVID-19 VACC, MRNA(PFIZER)/PF 30 MCG/0.3 ML SYRINGE IM (08:56)
== END 2021-02-03 23:59 ==
LOC: IMMUN 11:40
PROVIDERS: PCP Internal Medicine; Referring Provider Family Medicine; Visit Provider Family Medicine
DX: Z23 Encounter for immunization (principal)
CPT/HCPCS: 0001A; 0002A; 91300

== ENCOUNTER → 2021-02-27 09:49 | Outpatient (CLI) | payer MEDICARE, OTHER, SELFPAY ==
[2020-09-18 10:20] VITALS: BMI 26.0
--- NOTE | 2021-02-27 09:54 | US_ITS ---
STUDY: THYROID ULTRASOUND REASON FOR EXAM: Male, 70 years old. History of thyroid nodules. TECHNIQUE: Ultrasound evaluation of the thyroid was performed with real-time and static iqbal-scale imaging. COMPARISON: Comparison is made with prior examination dated 11/01/2019 and 10/03/2018. FINDINGS: RIGHT LOBE: The right lobe of the thyroid gland measures 4.4 cm x 1.6 cm x 1.8 cm. There is a homogeneous echotexture. There is a 6 mm x 6 mm x 5 mm hypoechoic solid/cystic nodule in the midpole of the thyroid. There is evidence of intranodular vascularity. This is unchanged. LEFT LOBE: The left lobe of the thyroid gland measures 4.5 cm x 1.6 cm x 1.8 cm. There is a homogeneous echotexture. There is a 9 mm x 7 mm x 5 mm solid hypoechoic nodule in the lower pole of the left lobe with evidence of intranodular vascularity. This is unchanged. ISTHMUS: The isthmus measures 3 mm posterior to the right side of the isthmus, there is a stable 4 mm x 3 mm x 3 mm hypoechoic solid nodule.. The regional lymph nodes are normal. US/Thyroid IMPRESSION: Stable examination. Electronically Signed: Charbel Rivera MD at 13:22 EDT , Service support ,
== END ==
PROVIDERS: PCP Internal Medicine; Referring Provider Internal Medicine; Visit Provider Internal Medicine
DX: E04.1 Nontoxic single thyroid nodule (principal)
CPT/HCPCS: 76536

== ENCOUNTER → 2021-03-04 05:58 | Outpatient (CLI) | payer MEDICARE, OTHER, SELFPAY ==
[2020-09-18 10:20] VITALS: BMI 26.0
[2021-03-04 07:57] LABS: Absolute Lymphocyte Count 1.93 X10^3/uL (0.83-4.51); Absolute Neutrophil Count 2.6 X10^3/uL (2.0-7.7); Basophil# 0.09 X10^3/uL; Basophil% 1.7 % (0-1); Eosinophil# 0.24 X10^3/uL; Eosinophils% 4.5 % (0-5); Hematocrit 41.2 % (40-54); Hemoglobin 13.2 g/dL (13.0-16.5); Lymphocyte # 1.93 X10^3/ul (0.83-4.51); Lymphocyte % 35.8 % (19-41); Mean Corpuscular Hgb 30.8 pg (27.0-32.0); Mean Platelet Vol. 10.3 fl (6.2-12.0); Monocyte# 0.57 X10^3/uL; Monocyte% 10.6 % (0-10); NRBC Flagged by Analyzer 0 % (0-5); Neutrophil # 2.55 X10^3/uL (2.7-7.7); Neutrophil % 47.2 % (47-70); Platelet Count 249 K/mm3 (150-450); RBC Distribution Width CV 12.9 % (11.6-14.6); RBC Distribution Width SD 45.5 fl (35.1-43.9); Red Blood Count 4.29 M/mm3 (4.6-6.2); White Blood Count 5.4 K/mm3 (4.4-11.0)
[2021-03-04 08:32] LABS: AST(SGOT) 20 U/L (15-37); Alanine Aminotransfer ALT/SGPT 18 U/L (16-61); Albumin, Serum 3.5 g/dL (3.2-5.0); Alkaline Phosphatase 101 U/L (45-117); Anion Gap 5 (5-15); BUN 11 mg/dL (7-18); BUN/Creat Ratio 10.4 RATIO (10-20); Calcium,Total 9.1 mg/dL (8.5-10.1); Chloride 107 mmol/L (98-107); Cholesterol 135 mg/dL (200); Creatinine, Serum 1.06 mg/dL (0.70-1.30); EST Glomerular Filtration Rate 73 mL/min (>60); Est Glom Filt Rate - Afr Amer 89 mL/min (>60); Globulin 3.6 g/dL (2.2-4.2); Glucose 92 mg/dL (74-106); High Density Lipoprotein 61 mg/dL; Protein, Total 7.1 g/dL (6.4-8.2); Sodium Level 139 mmol/L (136-145); Triglycerides 52 mg/dL; Very Low Density Lipoprotein 10 mg/dL (5-40)
[2021-03-04 10:10] LABS: Hemoglobin A1c 5.4 % (3.8-5.6)
== END ==
PROVIDERS: PCP Internal Medicine; Referring Provider Internal Medicine; Visit Provider Internal Medicine
DX: I65.23 Occlusion and stenosis of bilateral carotid arteries (principal); G62.9 Polyneuropathy, unspecified; E78.5 Hyperlipidemia, unspecified; E04.1 Nontoxic single thyroid nodule; R73.09 Other abnormal glucose
CPT/HCPCS: 36415; 80053; 80061; 83036; 85025

== ENCOUNTER → 2021-07-02 10:17 | Outpatient (CLI) | payer MEDICARE, OTHER, SELFPAY ==
--- NOTE | 2021-07-02 10:30 | BD_ITS ---
STUDY: DUAL ENERGY X-RAY ABSORPTIOMETRY / DXA REASON FOR EXAM: Male, 70 years old. M810 TECHNIQUE: Bone Mineral Density (BMD) measurements of lumbar spine and bilateral hips were obtained. COMPARISON: Comparison is made with prior study dated 02/01/2017. FINDINGS: Lumbar Spine (L1-L4): g/cm2 (0.894) / T-score (-1.7) / Z-score (-0.8) Findings are suggestive of osteopenia with a moderate fracture risk. Left Femur Total: g/cm2 (0.663) / T-score (-2.5) / Z-score (-1.7) Left Femoral Neck: g/cm2 (0.585) / T-score (-2.5) / Z-score (-1.3) Right Femur Total: g/cm2 (0.660) / T-score (-2.5) / Z-score (-1.8) Right Femoral Neck: g/cm2 (0.631) / T-score (-2.2) / Z-score (-1.0) The T-Scores on the most recent prior examination were: Lumbar Spine (L1-L4): There has been worsening of bone density since the previous examination. Left Femur Total: which represents an improvement of 5.7%. Right Femur Total: which represents an improvement of 13.3%. BD/Dexa Bone Density Study IMPRESSION: The patient is considered osteoporotic as outlined below according to World Lee Organization (WHO) criteria with a high fracture risk. There has been improvement of bone density since the previous examination. Reference Information: The T-score is the number of standard deviations above or below the standard which is normal for young adults at their peak bone mineral density. The World Health Organization (WHO) interprets the T-scores as follows: Above -1 Normal bone density Between -1 and -2.5 Osteopenia Equal to / or below -2.5 Osteoporosis As a practical clinical guideline, osteopenia may be graded as follows: Mild -1 through -1.5 Moderate -1.6 through -2.0 Severe -2.1 through -2.4 The Z-score is the number of standard deviations above or below age-matched controls. A Z-score of less than -1.5 would be considered abnormal. References: 1. NIH Osteoporosis and Related Bone Diseases www osteo.org 2. International Society for Clinical Densitometry www iscd.org 3. National Osteoporosis Foundation www nof.org Electronically Signed: Charbel Rivera MD at 12:48 EDT , Service support ,
== END ==
PROVIDERS: PCP Internal Medicine; Referring Provider Internal Medicine; Visit Provider Internal Medicine
DX: M81.0 Age-related osteoporosis without current pathological fracture (principal)
CPT/HCPCS: 77080

== ENCOUNTER → 2021-07-14 15:23 | Outpatient (CLI) | payer MEDICARE, OTHER, SELFPAY ==
--- NOTE | 2021-07-14 15:00 | PET_ITS ---
EXAMINATION: FDG PET-CT INDICATIONS: A 70-year-old male with a history of pulmonary nodularity. COMPARISON EXAMINATION: CT of the chest report dated 11/07/19. NON-INDEX LESION SIZE SUV INTERPRETATION Rectum-rectal vault nodular 22.1 mm (frame 67) 4.6 Most consistent with physiologic tracer distribution, if soft tissue mass formation is suspected, correlation with CT of the abdomen and pelvis with intravenous contrast with direct visualization is recommended. TECHNIQUE: Following the intravenous administration of 16.87 mCi of F-18 deoxyglucose via the right antecubital fossa, multiplanar image acquisitions of the head, neck, chest, abdomen and pelvis to level of mid-thigh, lower extremities obtained at one hour post radiopharmaceutical administration contemporaneously interpreted with the current CT of the head, neck, chest, abdomen and pelvis to level of mid-thigh, lower extremities dated 07/14/[address] of the chest report dated 11/07/19 reveal: SERUM GLUCOSE LEVEL: 81 mg/dl. HEIGHT: 72 inches. WEIGHT: 185 lbs. FINDINGS: 1. There is no quantitative scintigraphic evidence of abnormal increased glucose metabolism within the context of the right hemithorax pulmonary parenchyma to correlate with structural changes noted on review of CT of the thorax dated 07/14/21. 2. Facilitated fluorine labeled glucose metabolism is manifest in the lower pelvis associated with the rectum-rectal vault generating a calculated maximum standard uptake value of 4.6. The maximum axial diameter of the corresponding metabolic abnormality on review of CT of the pelvis dated 07/14/21 is 22.1 mm (AP). 3. Normal physiologic distribution of the radiopharmaceutical is apparent in the hepatic (2.9) and splenic parenchyma, both renal units, bladder and remaining visualized intestinal tract. The visualized portion of the cerebral cortex demonstrate symmetric and preserved glucose metabolism. Diffuse intestinal tract activity is noted throughout all four quadrants of the abdominal-pelvic retroperitoneum and mesentery consistent with normal physiologic distribution of the radiopharmaceutical. Prominent radiopharmaceutical concentration is observed in the oral cavity associated with dental hardware placement most consistent with metallic reconstruction artifact. (Peggy et al, AJR 179:1337, 2002). Prominent tracer uptake is observed in the thoracic paravertebral musculature most consistent with physiologic tracer uptake. Pertinent CT findings are as follows. CHEST: The partially calcified density defined in the right upper posteromedial lung-right upper lobe demonstrates no evidence of quantitative significant increased FDG uptake. Emphysematous changes are defined in the bilateral upper-mid lung zones. There is atherosclerotic calcification defined in the thoracic aorta without evidence of dilatation-aneurysm formation. Coronary arterial calcification is observed. ABDOMEN AND PELVIS: Attenuation abnormalities are noted in the left and right lobe of the hepatic parenchyma demonstrating photopenia on the metabolic data set commensurate with cyst formation. Atherosclerotic calcification is defined in the abdominal aorta without evidence of dilatation, aneurysm formation. Pelvic arterial calcification is observed. Calcification is manifest within the right kidney. Exophytic cyst formation is encountered in the bilateral renal units. Right and left inguinal subcentimeter soft tissue densities are ametabolic. SKELETAL: Degenerative changes defined in the cervical, thoracic and lumbar spine demonstrate no evidence of glucose hypermetabolism. Diffuse demineralization is noted in the axial skeletal structures. There is evidence of an apparent compression deformity involving the seventh thoracic vertebra without evidence of quantitative significant increased FDG uptake. PET/PET/CT Tumor Base -Thigh Init IMPRESSION: 1. Prominent radiopharmaceutical concentration observed in the rectum-rectal vault is most consistent with physiologic tracer distribution. If intraluminal soft tissue mass formation is a diagnostic consideration correlation with CT of the abdomen and pelvis with oral and intravenous contrast or direct visualization is recommended. (Dodonnell et al, Journal of Nuclear Medicine, 30:S276, 2003) 2. Anatomic stability may be ensured in the nonglucose avid right upper lobe parenchymal density with repeat CT of the thorax in 3-6 months if clinically indicated. (Jinny, Seminars in Thoracic and Cardiovascular Surgery 14:292, 2002). Electronic Signature Mike Samuel D.O. Accurate Quantification of SUVs for this report are calculated using the exclusive [employer]. (U.S. Patent No. 10, 674, 983). Standardization and correction of the FDG SUV metric via ACCUQUAN technology allow for vendor non-specific objective quantitative examination comparison and optimization of the sensitivity and specificity of the FDG PET-CT examination. Electronically Signed: Mike Samuel DO at 22:34 EST Tel , Service support ,
== END ==
PROVIDERS: PCP Internal Medicine; Referring Provider Internal Medicine; Visit Provider Internal Medicine
DX: R91.1 Solitary pulmonary nodule (principal)
CPT/HCPCS: 78815; A9552

== ENCOUNTER → 2021-07-17 05:58 | Outpatient (CLI) | payer MEDICARE, OTHER, SELFPAY ==
--- NOTE | 2021-07-17 06:03 | CDU_ITS ---
Reason For Study: Carotid artery stenosis Rt. Velocities/BP Lt. Velocities/BP Prox CCA 124.7/33.4 cm/sec. Prox CCA 90.4/28.9 cm/sec. Mid CCA 101/27.9 cm/sec. Mid CCA 81.6/25.6 cm/sec. Dist CCA 82.7/31.6 cm/sec. Dist CCA 81.6/25.6 cm/sec. Prox ICA 108.3/31.6 cm/sec. Prox ICA 54.2/21.2 cm/sec. Mid ICA 66.7/21.2 cm/sec. Mid ICA 98.1/39.9 cm/sec. Dist ICA 91.3/31.1 cm/sec. Dist ICA 79.4/33.3 cm/sec. Rt. ICA/CCA = 1.1. Lt. ICA/CCA = 1.2. Prox ECA 80.9/18.8 cm/sec. Prox ECA 98.1/24.5 cm/sec. Rt. Vert. 44.7/14.5 cm/sec. Lt. Vert. 57.5/17.9 cm/sec. Right Extracranial There is intimal thickening but no significant atherosclerotic plaque noted in the right common carotid artery. There is intimal thickening but no significant atherosclerotic plaque noted in the right internal carotid artery. There is homogeneous, smooth atherosclerotic plaque noted in the right external carotid artery. Antegrade flow is noted in the right vertebral artery. Left Extracranial There is intimal thickening but no significant atherosclerotic plaque noted in the left common carotid artery. There is heterogeneous, irregular atherosclerotic plaque noted in the left internal carotid artery. There is intimal thickening but no significant atherosclerotic plaque noted in the left external carotid artery. Antegrade flow is noted in the left vertebral artery. There is heterogeneous, irregular atherosclerotic plaque noted in the left bulb. Procedure Carotid Duplex 44878. This is a Carotid Duplex examination using B-mode, color flow and specral Doppler. Exam performed in department. VL/Carotid Duplex Ultrasound Interpretation Summary Mild (<50%) stenosis right extracranial internal carotid. Mild (<50%) stenosis left extracranial internal carotid. Flow within the vertebral arteries is antegrade bilaterally. Ordering Physician: Jessica Simental Referring Physician: Jessica Simental D.O. Performed By: Sunni Lanier RVT
--- NOTE | 2021-07-17 13:24 | STRESSREP_ITS ---
Stress Test Report Exercise myocardial perfusion stress test. 70-year-old man with a history of chest pain. Stress protocol: Resting EKG demonstrates normal sinus rhythm with a rate of 58 bpm normal intervals are noted sinus arrhythmia is present. The patient exercised according to the regular [facility] protocol for total duration of 3 minutes and 30 seconds the maximum heart rate attained was 133 bpm which was 89% of max impact at heart rate the maximum workload was 5.8 metabolic equivalents. At rest there were no ST or T wave changes noted to suggest isch emia and at peak exercise nonspecific ST changes were noted with did not meet the criteria for ischemia. No clinical angina was noted. The resting blood pressure was 130/78 with a peak blood pressure 142/76 mmHg. Myocardial perfusion protocol. 14.2 mCi of technetium 99m sestamibi was injected at rest. The patient exercised according to regular [facility] protocol for 3-1/2 minutes and at peak exercise 44.6 mCi of technetium 99m sestamibi was injected stress images were obtained stress and rest images were reconstructed and compared in the short axis vertical long horizontal long axis. Gated images were also obtained per Perfusion SPECT analysis: Review of the stress images demonstrate mildly reduced perfusion in the anterior septal wall on the stress images. The septum inferior wall and lateral wall and the rest of the anterior wall appeared to be normally perfused. The resting images demonstrate a similar pattern. No areas of reversibility are noted to suggest ischemia. A small previous anteroseptal infarct cannot be completely excluded. Gated SPECT analysis: The gated ejection fraction is 73%. Conclusion: Exercise myocardial perfusion stress test with no evidence of ischemia at a low to moderate workload. The low level of activity can affect sensitivity for detection of ischemia. Preserved ejection fraction.
== END ==
PROVIDERS: PCP Internal Medicine; Referring Provider Internal Medicine Cardiovascular Disease; Visit Provider Internal Medicine Cardiovascular Disease
DX: I65.23 Occlusion and stenosis of bilateral carotid arteries (principal); I25.10 Atherosclerotic heart disease of native coronary artery without angina pectoris
CPT/HCPCS: 78452; 93017; 93880; A9500; A4216

== ENCOUNTER → 2021-08-26 | Outpatient (CLI) | payer MEDICARE, OTHER, SELFPAY | END | disposition home or self-care (01) | LOC: LABSPEC 10:18 | PROVIDERS: PCP Internal Medicine; Visit Provider Internal Medicine | DX: Z20.822 Contact with and (suspected) exposure to COVID-19 (principal) | CPT/HCPCS: 87635; U0005; U0003 ==

== ENCOUNTER → 2022-01-07 | Outpatient (CLI) | payer MEDICARE, OTHER, SELFPAY ==
[2022-01-07 15:30] LABS: Potassium 4.4 mmol/L (3.5-5.1)
== END | disposition home or self-care (01) ==
LOC: LABSPEC 15:05
PROVIDERS: PCP Internal Medicine; Referring Provider Internal Medicine; Visit Provider Internal Medicine
DX: E87.5 Hyperkalemia (principal)
CPT/HCPCS: 84132

== ENCOUNTER → 2022-01-20 | Outpatient (CLI) | payer MEDICARE, OTHER, SELFPAY ==
--- NOTE | 2022-01-20 13:43 | CT_ITS ---
STUDY: CT Chest W/O Contrast Injection 01/20/2022 2:44 PM REASON FOR EXAM: Male, 71 years old. PULM NODULE Individualized dose optimization techniques were used for this CT. TECHNIQUE: Transaxial imaging was performed withoutIV contrast material. COMPARISON: pet Jul 14 2021 4:28pm FINDINGS: There are degenerative changes of the shoulders. There is no pneumothorax. There is no demonstrated pleural abnormality. There are scattered blebs and bullae. This can be seen in pulmonary emphysema. Stable 10 mm nodule in the medial right upper lobe. Series 2 image 36. This nodule contains soft tissue and calcifications. This is a benign hamartoma. There are calcifications of the coronary arteries. Normal mediastinum. Normal hilar regions. Normal pulmonary arteries. There is atherosclerotic calcification of the aortic arch with tortuosity and elongation of the aortic arch and descending thoracic aorta. There are multi-level degenerative changes of the thoracic spine. Stable compression deformity of T3, T5, T7, T8, and T9. Non obstructive 4mm right renal parenchymal stones. There are hypodensities in the left kidney. These are consistent for cysts. No follow up required. There are hypodensities in the right kidney. These are consistent for cysts. No follow up required. Stable hepatic hypodensities. CT/Chest without Contrast IMPRESSION: Stable 10 mm nodule in the medial right upper lobe. Series 2 image 36. This nodule contains soft tissue and calcifications. This is a benign hamartoma. ACR Lung CT Screening Reporting T Data System (Lung-RADS) score: 1 - Negative. Recommend continued annual screening with low-dose CT (LDCT) in 12 months. Electronically Signed: Chas Kulkarni MD at 14:53 EDT ,
--- NOTE | 2022-01-20 13:43 | US_ITS ---
STUDY: THYROID ULTRASOUND REASON FOR EXAM: Male, 71 years old. THY NODULE TECHNIQUE: Ultrasound evaluation of the thyroid was performed with real-time and static iqbal-scale imaging. COMPARISON: CT chest an earlier. and US 7.2.21 FINDINGS:RIGHT LOBE: The right lobe of thethyroid gland measures 5 x 2 cm. There is a homogeneous echotexture. here is a nodule. Mid nodule measures 7 x 7 x 4 mm. The lesion is solid with regular margins and intra-nodular doppler flow. LEFT LOBE: The left lobe of the thyroid gland measures 1.4 x 1.7 cm. There is a homogeneous echotexture. There is a nodule. Inferior nodule measures 9 x 7 x 5 mm. The lesion is solid with regular margins and intra-nodular doppler flow. ISTHMUS: The isthmus measures 4 mm. 3.7 mm solid lesion posterior to the isthmus. It is nonvascular. This is stable. US/Thyroid IMPRESSION: There is a single stable RIGHT nodules. This nodule is solid or almost completely solid, hyperechoic or isoechoic, bcufi-[id number]-sklo, smoothly marginated and contains no echogenic foci. TI-RADS points: 3. TI-RADS category: TR3. This nodule is mildly suspicious but no FNA or follow-up is necessary given the small size of this nodule. There is a single stable left nodules. This nodule is solid or almost completely solid, hyperechoic or isoechoic, [id number]-tyvt-[id number], smoothly marginated and contains no echogenic foci. TI-RADS points: 3. TI-RADS category: TR3. This nodule is mildly suspicious but no FNA or follow-up is necessary given the small size of this nodule. Electronically Signed: Chas Kulkarni MD at 17:05 EDT ,
== END | disposition home or self-care (01) ==
LOC: CT 13:41
PROVIDERS: PCP Internal Medicine; Referring Provider Internal Medicine; Visit Provider Internal Medicine
DX: R91.1 Solitary pulmonary nodule (principal); E04.1 Nontoxic single thyroid nodule
CPT/HCPCS: 71250; 76536

== ENCOUNTER 2023-01-10 12:48 | Outpatient (CLI) | payer MEDICARE, OTHER, SELFPAY ==
--- NOTE | 2023-01-10 12:50 | CDU_ITS ---
Reason For Study: BILATERAL CAROTID STENOSIS Rt. Velocities/BP Lt. Velocities/BP Prox CCA 103.5/21.2 cm/sec. Prox CCA 121.1/24.1 cm/sec. Mid CCA 87.9/16.7 cm/sec. Mid CCA 110.1/29.0 cm/sec. Dist CCA 70.7/19.2 cm/sec. Dist CCA 98.6/21.2 cm/sec. Prox ICA 86.7/16.4 cm/sec. Prox ICA 86.7/25.3 cm/sec. Mid ICA 91.1/26.3 cm/sec. Mid ICA 106.3/29.0 cm/sec. Dist ICA 81.2/20.8 cm/sec. Dist ICA 124.8/31.2 cm/sec. Rt. ICA/CCA = 91.1/87.9=1.0. Lt. ICA/CCA = 124.8/110.1=1.1. Prox ECA 132.6/26.7 cm/sec. Prox ECA 95.3/17.9 cm/sec. Rt. Vert. 41.2/12.7 cm/sec. Lt. Vert. 47.2/15.3 cm/sec. Right Extracranial There is intimal thickening but no significant atherosclerotic plaque noted in the right common carotid artery. There is homogeneous, smooth atherosclerotic plaque noted in the right internal carotid artery. There is homogeneous, smooth atherosclerotic plaque noted in the right external carotid artery. Antegrade flow is noted in the right vertebral artery. Left Extracranial There is intimal thickening but no significant atherosclerotic plaque noted in the left common carotid artery. There is heterogeneous, irregular atherosclerotic plaque noted in the left internal carotid artery. There is intimal thickening but no significant atherosclerotic plaque noted in the left external carotid artery. Antegrade flow is noted in the left vertebral artery. Procedure Carotid Duplex [id number]. This is a Carotid Duplex examination using B-mode, color flow and specral Doppler. Exam performed in department. VL/Carotid Duplex Ultrasound Interpretation Summary Mild (<50%) stenosis right extracranial internal carotid. Mild (<50%) stenosis left extracranial internal carotid. Patent and antegrade vertebrals bilaterally. Ordering Physician: Jessica Simental Referring Physician: Jessica Simental; Praivn Goode Performed By: Natalie Sarabia, ANNI, RVT
--- NOTE | 2023-01-10 13:15 | CT_ITS ---
STUDY: CT CHEST WITHOUT CONTRAST REASON FOR EXAM: Male, 72 years old. Pulmonary nodule, pt a smoker -- pulmonary nodule, pt a smoker RADIATION DOSAGE (If Supplied By Facility): CTDIvol = ( 11.27 ) mGy, DLP = ( 461.76 ) mGycm TECHNIQUE: Transaxial imaging was performed without the administration of intravenous contrast material. Multiplanar coronal and sagittal images were reformatted. Individualized dose optimization techniques were used for this CT. COMPARISON: Comparison is made with prior study dated January 20, 2022. FINDINGS: CHEST Hyperinflation. Diffuse emphysematous changes more prominent in the upper lobes. Stable 10.6 mm partially calcified nodule in the medial posterior aspect of the right upper lobe as seen on axial image #42. 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 There is no demonstrated pleural abnormality. There are calcifications of the coronary arteries. There are multiple small lymph nodes within the mediastinum, which are normal in size and morphology most compatible with reactive lymph hyperplasia. Normal hilar regions. Normal unenhanced pulmonary arteries. There is atherosclerotic calcification of the aortic arch with tortuosity and elongation of the aortic arch and descending thoracic aorta. There are degenerative changes of the thoracic spine. Stable compression deformity of the T3, T5, T7, T8 and T9 vertebrae. Multiple hepatic cysts. Left renal cyst. Nonobstructive 6 mm calculus in the upper pole of the right kidney. CT/Chest without Contrast IMPRESSION: Stable partially calcified nodule in the posteromedial aspect of the right upper lobe. The seen and bullous changes worse in the upper lobes. Stable multilevel compression fractures of the thoracic vertebrae. Electronically Signed: Charbel Rivera MD at 15:37 EDT ,
--- NOTE | 2023-01-10 13:15 | US_ITS ---
INDICATION: thyroid nodule -- thyroid nodule EXAMINATION: Ultrasound US Thyroid (eg thyroid, parathyroid, parotid) TECHNIQUE: Colvin scale and color doppler imaging was performed of the thyroid gland. TI-RADS criteria was utilized. COMPARISON: 01/20/2022 ultrasound. FINDINGS: RIGHT THYROID LOBE: 1.4 x 1.8 x 5.7 cm with a volume of 4.6 mL. Homogeneous echotexture. Normal vascularity. 9 mm nodule which is solid, isoechoic, wider than tall with smooth margins and no echogenic foci. LEFT THYROID LOBE: 1.5 x 1.9 x 6.6 cm with a volume of 4.4 mL. Homogeneous echotexture. Normal vascularity. 9 mm nodule which is solid, isoechoic, wider than tall with smooth margins and no echogenic foci. ISTHMUS: 4 mm in AP diameter. Homogeneous echotexture. Normal vascularity. No thyroid nodules. US/Thyroid IMPRESSION: Bilateral thyroid nodules, both of which are stable to the prior exam and are consistent with TI-RADS 3 category nodules with no follow-up recommended. Electronically Signed: Jeremiah Griggs DO at 7:11 EDT ,
== END 2023-01-10 23:59 | disposition home or self-care (01) ==
LOC: CVS 12:49
PROVIDERS: PCP Internal Medicine; Referring Provider Internal Medicine; Visit Provider Internal Medicine
DX: I65.23 Occlusion and stenosis of bilateral carotid arteries (principal); E04.1 Nontoxic single thyroid nodule; R91.1 Solitary pulmonary nodule
CPT/HCPCS: 71250; 76536; 93880

== ENCOUNTER → 2023-02-25 | Outpatient (CLI) | payer MEDICARE, OTHER, SELFPAY ==
--- NOTE | 2023-02-25 15:51 | CT_ITS ---
STUDY: CT ABDOMEN AND PELVIS WITH CONTRAST REASON FOR EXAM: Male, 72 years old. abdominal pain, nausea, STAT if possible -- abdominal pain, nausea, STAT if possible RADIATION DOSAGE (If Supplied By Facility): CTDIvol = ( 17.15 ) mGy, DLP = ( 1074.03 ) mGycm TECHNIQUE: Transaxial images were obtained from the dome of the diaphragm to the symphysis pubis with oral contrast. Oral and amp; IV Gastrografin and amp; 100mL Isovue-300 was administered. Sagittal and coronal images were reconstructed. Individualized dose optimization techniques were used for this CT. COMPARISON: None. FINDINGS: The visualized lung bases are unremarkable. The visualized portions of the heart are within normal limits. Multiple hepatic cysts including a 5.5 cm cyst lateral segment left lobe. Normal gallbladder and extrahepatic biliary system. Normal spleen. Normal pancreas. Normal bilateral adrenal glands. 4 mm obstructing stone in the proximal right ureter with mild ureteral dilatation and hydronephrosis. Multiple left renal cysts including a 4 cm cyst of the anterior cortex midsection left kidney. Normal visualized stomach. Normal small intestine. Normal colon. There is non-visualization of the appendix. There is diffuse atherosclerotic calcification of the abdominal aorta, without a demonstrated aneurysm. Normal inferior vena cava. Normal retroperitoneum. Normal urinary bladder. Normal abdominal wall. Normal osseous structures. CT/Abdomen/Pelvis WITH Contrast IMPRESSION: 4 mm obstructing stone at the proximal right ureter with mild ureteral dilatation and hydronephrosis. Electronically Signed: Mike Baugh MD at 22:02 EDT ,
[2023-02-25 16:19] LABS: Absolute Lymphocyte Count 1.48 X10^3/uL (0.83-4.51); Absolute Neutrophil Count 5.4 X10^3/uL (2.0-7.7); Basophil# 0.09 X10^3/uL; Basophil% 1.1 % (0-1); Eosinophil# 0.13 X10^3/uL; Eosinophils% 1.6 % (0-5); Hematocrit 38.3 % (40-54); Lymphocyte # 1.48 X10^3/ul (0.83-4.51); Lymphocyte % 18.7 % (19-41); Mean Corp Hgb Conc 33.9 g/dL (32-36); Mean Corpuscular Hgb 31.8 pg (27.0-32.0); Mean Corpuscular Volume 93.6 fL (80-94); Mean Platelet Vol. 9.6 fl (6.2-12.0); Monocyte# 0.76 X10^3/uL; Monocyte% 9.6 % (0-10); NRBC Flagged by Analyzer 0 % (0-5); Neutrophil # 5.44 X10^3/uL (2.7-7.7); Neutrophil % 68.7 % (47-70); Platelet Count 245 K/mm3 (150-450); RBC Distribution Width CV 13.3 % (11.6-14.6); RBC Distribution Width SD 45.8 fl (35.1-43.9); Red Blood Count 4.09 M/mm3 (4.6-6.2); White Blood Count 7.9 K/mm3 (4.4-11.0)
[2023-02-25 17:17] LABS: BNP,B-Type NATRIURETIC PEPTIDE 89.5 pg/mL (0-100)
[2023-02-25 17:35] LABS: Anion Gap 5 (5-15); BUN 19 mg/dL (7-18); BUN/Creat Ratio 10.3 RATIO (10-20); Calcium,Total 9.4 mg/dL (8.5-10.1); Chloride 102 mmol/L (98-107); Creatinine, Serum 1.85 mg/dL (0.70-1.30); EST Glomerular Filtration Rate 38 mL/min (>60); Est Glom Filt Rate - Afr Amer 46 mL/min (>60); Glucose 94 mg/dL (74-106); Potassium 4.6 mmol/L (3.5-5.1); Sodium Level 133 mmol/L (136-145); Thyroid Stim Hormone (TSH) 0.84 uIU/mL (0.358-3.74)
== END | disposition home or self-care (01) ==
PROVIDERS: Nurse Practitioner Gerontology; PCP Internal Medicine; Visit Provider Internal Medicine
DX: R10.9 Unspecified abdominal pain (principal); R06.00 Dyspnea, unspecified; R53.83 Other fatigue
CPT/HCPCS: 36415; 74177; 80048; 83880; 84443; 85025; Q9967

== ENCOUNTER 2023-02-26 13:50 | Emergency (ER) | payer MEDICARE, OTHER, SELFPAY ==
[2023-02-26 13:51] VITALS: BP 138/89; PULSE 67; RESP 16; TEMP 36.3; O2SAT 99; BMI 26.2
--- NOTE | 2023-02-26 14:11 | EDS_ITS ---
HPI History of Present Illness Chief Complaint: Flank Pain Detail of Chief Complaint: Right flank pain, vomiting Informant: patient Narrative Narrative: Patient presents secondary to right flank pain and vomiting. He states he developed right flank pain 2 days ago. He was seen by his PCP yesterday and sent for lab work and a CT scan. He was diagnosed with a right-sided kidney stone. Patient states has been drinking a lot of water and Gatorade today trying to help flush the stone through. He developed vomiting and presents for evaluation. He states he is not taking anything for pain. He has never had a kidney stone previously. I did review patient's lab work. His creatinine yesterday was 1.85. The last available creatinine for comparison was from [address] scan revealed a 4 mm right proximal ureter stone. 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 dispatcher 0.5 mg-sergey-Zn tablet (Caltrate + D3 Plus Minerals) 1 tab PO QHS 08/28/18 [History Last Taken Unknown] cholecalciferol (vitamin D3) 25 mcg/drop (1,000 unit/drop) oral drops 2,000 unit PO DAILY 09/06/18 [History Last Taken Unknown] umeclidinium 62.5 mcg-vilanterol 25 mcg/actuation powdr for inhalation 1 inh inhalation Q24H 09/18/20 [History Last Taken 02/26/23] atorvastatin 80 mg tablet 80 mg PO QHS 04/21/21 [History Last Taken Unknown] phenobarbital 16.2 mg tablet 64.8 mg PO QHS 60 days #240 tabs 04/21/21 [History Last Taken Unknown] phenytoin sodium extended 100 mg capsule 300 mg PO QHS 04/21/21 [History Last Taken Unknown] aspirin 81 mg tablet,delayed release (Adult Low Dose Aspirin) 81 mg PO QHS 02/26/23 [History Last Taken Unknown] Allergy/AdvReac Type Severity Reaction Status Date / Time No Known Allergies Allergy Verified 02/26/23 13:52 Family History Father Kidney disease Heart disease CHF Sister Diabetes Surgical History History of appendectomy History of left heart catheterization (09/15/18) History of tonsillectomy Social History Smoking Status: Former smoker quit date: 03/01/16 pack-years: 45 alcohol intake: current alcohol intake frequency: holidays/special occasions only ROS ROS ED Constitutional Constitutional ED: Denies chills or fever(s) Eyes Eyes: Denies discharge from eye(s) ENT ENT ED: Denies discharge from eye(s), rhinorrhea or sore throat Cardiovascular Cardiovascular: Denies chest pain Respiratory/Chest Respiratory/Chest: Denies cough or dyspnea Gastrointestinal Gastrointestinal: Reports abdominal pain, nausea and vomiting; Denies diarrhea Genitourinary Genitourinary ED: Denies dysuria Musculoskeletal Musculoskeletal: Reports back pain; Denies extremity pain Integumentary Denies Abrasions or rash Neurologic Neurologic: Denies headache(s) or weakness Allergic/Immunologic Allergic/Immunologic ED: Denies lip swelling or urticaria EXAM Physical Exam Const Vital Signs: 02/26/23 13:51 Temperature 97.4 F L Temperature Source Temporal Pulse Rate 67 Respiratory Rate 16 Blood Pressure 138/89 H Blood Pressure Mean 105 Pulse Ox 99 Oxygen Delivery Method Room Air Positive well nourished and well developed General Appearance ED: well developed HEENT Reports moist mucous membranes Eyes EOMs intact bilaterally Chest Wall inspection of chest normal and palpation of chest normal Resp normal respiratory effort and clear to auscultation bilaterally Cardio regular rate and regular rhythm GI non-tender Auscultation: hypoactive bowel sounds Palpation: soft Back/Spine no CVA tenderness Extremity normal to inspection Neuro oriented x3 and no sensory deficits noted Motor Exam: strength 5/5 throughout Psych mental status grossly normal Skin no rashes or lesions noted MDM MDM MDM Narrative Medical decision making narrative: Patient is given morphine, Zofran, IV fluids. I did review his labs from yesterday as well as a CT scan. He has evidence of a 4 mm obstructing stone in the right proximal ureter. Labwork obtained to evaluate for leukocytosis, anemia, and electrolyte derangement. Urinalysis obtained to evaluate for infection/hematuria. Lab Data Attestation: I reviewed the patient's lab results. Labs: Laboratory Results - last 24 hr 02/26/23 02/26/23 14:20 15:18 WBC 8.4 RBC 3.96 L Hgb 12.3 L Hct 35.7 L MCV 90.2 MCH 31.1 MCHC 34.5 RDW Std Deviation 41.4 RDW Coeff of [place] 12.5 Plt Count 221 MPV 9.2 Immature Gran % (Auto) 0.200 Neut % (Auto) 70.1 H Lymph % (Auto) 16.2 L [place] % (Auto) 11.1 H Eos % (Auto) 1.3 Baso % (Auto) 1.1 H Absolute Neuts (auto) 5.9 Absolute Lymphs (auto) 1.36 Nucleated RBC % 0 Sodium 120 L Potassium 4.2 Chloride 87 L Carbon Dioxide 22.0 Anion Gap 11 BUN 19 H Creatinine 1.94 H Estim Creat Clear Calc 37.22 Est GFR (MDRD) Af Amer 44 L Est GFR (MDRD) Non-Af 36 L BUN/Creatinine Ratio 9.8 L Glucose 81 Calcium 8.7 Urine Color Yellow Urine Clarity Clear Urine pH 6.5 Ur Specific [place] 1.010 Urine Protein Negative Urine Glucose (UA) Normal Urine Ketones 50 H Urine Occult Blood 10 H Urine Nitrite Negative Urine Bilirubin Negative Urine Urobilinogen Normal Ur Leukocyte Esterase 25 H Urine RBC 0-5 SEEN Urine WBC 0-5 SEEN Ur Squamous Epith Cells 0 SEEN Urine Bacteria 0 SEEN Urine Mucus 0 SEEN Treatment and Re-Evaluation :: CBC was a white count of 8.4 with a hemoglobin of 12.3. Chemistry studies reveal a sodium of 120. Yesterday his sodium was 133. His BUN is 19 and his creatinine is 1.94. This is only a slight elevation in his creatinine from yesterday. On repeat evaluation patient is resting comfortably. He is receiving normal saline. Unfortunately do not have urology available this weekend. I do feel the patient will need admission for sodium correction. I spoke with the hospitalist here but they do not feel comfortable admitting him knowing that we do not have urology available to consult given the patient's kidney stone. I spoke with both [facility] as well as [facility]. Neither one of them have urology coverage available. Patient has been accepted at [facility] in [place]. Discharge Plan Triage Chief Complaint: Flank Pain ED Provider: Rosario Cruz Dx/Rx/DC Orders Clinical Impression: Hyponatremia, Ureterolithiasis Prescriptions: No Action cholecalciferol (vitamin D3) 1,000 unit/drop drops 2,000 unit PO DAILY phenobarbital 16.2 mg tablet 64.8 mg PO QHS 60 Days Qty: 240 Patient Comments: TAKE 1 TABLET BY MOUTH FOUR TIMES A DAY Caltrate + D3 Plus Minerals 300 mg-800 unit -25 mg-0.5 mg tablet 1 tab PO QHS ProAir HFA 90 mcg/actuation HFA aerosol inhaler 1 puff INHALATION Q6H PRN (Reason: Sob &/Or Wheezing) umeclidinium-vilanterol 62.5-25 mcg/actuation blister with device 1 inh INHALATION Q24H atorvastatin 80 mg tablet 80 mg PO QHS phenytoin sodium extended 100 mg capsule 300 mg PO QHS aspirin [Adult Low Dose Aspirin] 81 mg tablet,delayed release (DR/EC) 81 mg PO QHS Primary Care Provider: Jessica Simental Referrals: Jessica Simental DO [Primary Care Provider] - Disposition [facility]
[2023-02-26] MEDS: Morphine 4 MG/ML Syringe IV ×2 (14:17→16:09)
[2023-02-26] MEDS: Ondansetron 4 MG/2 ML Vial IV (14:17)
[2023-02-26 14:29] LABS: Absolute Lymphocyte Count 1.36 X10^3/uL (0.83-4.51); Absolute Neutrophil Count 5.9 X10^3/uL (2.0-7.7); Basophil# 0.09 X10^3/uL; Basophil% 1.1 % (0-1); Eosinophil# 0.11 X10^3/uL; Eosinophils% 1.3 % (0-5); Hematocrit 35.7 % (40-54); Hemoglobin 12.3 g/dL (13.0-16.5); Lymphocyte # 1.36 X10^3/ul (0.83-4.51); Lymphocyte % 16.2 % (19-41); Mean Corp Hgb Conc 34.5 g/dL (32-36); Mean Corpuscular Hgb 31.1 pg (27.0-32.0); Mean Corpuscular Volume 90.2 fL (80-94); Mean Platelet Vol. 9.2 fl (6.2-12.0); Monocyte# 0.93 X10^3/uL; Monocyte% 11.1 % (0-10); NRBC Flagged by Analyzer 0 % (0-5); Neutrophil # 5.89 X10^3/uL (2.7-7.7); Neutrophil % 70.1 % (47-70); Platelet Count 221 K/mm3 (150-450); RBC Distribution Width CV 12.5 % (11.6-14.6); RBC Distribution Width SD 41.4 fl (35.1-43.9); Red Blood Count 3.96 M/mm3 (4.6-6.2); White Blood Count 8.4 K/mm3 (4.4-11.0)
[2023-02-26] MEDS: 0.9% Normal Saline 1,000 ML 150 ML IV ×2 (14:29→16:09)
[2023-02-26 14:49] LABS: Anion Gap 11 (5-15); BUN 19 mg/dL (7-18); BUN/Creat Ratio 9.8 RATIO (10-20); Calcium,Total 8.7 mg/dL (8.5-10.1); Chloride 87 mmol/L (98-107); Creatinine, Serum 1.94 mg/dL (0.70-1.30); EST Glomerular Filtration Rate 36 mL/min (>60); Est Glom Filt Rate - Afr Amer 44 mL/min (>60); Estimated Creatinine Clearance 37.22 ml/min; Glucose 81 mg/dL (74-106); Potassium 4.2 mmol/L (3.5-5.1); Sodium Level 120 mmol/L (136-145)
[2023-02-26] MEDS: 0.9% Normal Saline 1,000 ML 999 ML IV (15:10)
[2023-02-26 15:22] LABS: Bacteria 0 SEEN /hpf (None Seen); Mucous, Urine 0 SEEN /hpf (<or=2+); Squamous Epithelial Cells - UA 0 SEEN /hpf (0-5)
[2023-02-26 15:24] LABS: Color, Urine Yellow (Yellow); Glucose, Dipstick Normal (Normal); Ketone-Dipstick 50 mg/dl (Negative); Leukocyte Esterase-Dipstick 25 /ul (Negative); Nitrite-Dipstick Negative (Negative); Occult Blood-Urine 10 /ul (Negative); Protein-Dipstick Negative (Negative); Urine Bilirubin Dipstick Negative (Negative); Urine Clarity Clear (Clear); Urine Urobilinogen Normal (Normal); Urine pH 6.5 (5.0 - 8.0)
[2023-02-26 15:35] LABS: Red Blood Cells-Urine 0-5 SEEN /hpf (0-5); White Blood Cells 0-5 SEEN /hpf (0-5)
--- NOTE | 2023-02-26 15:35 | NURSING ---
CALLED [facility] FOR TRANSFER. TALKED TO MACI
--- NOTE | 2023-02-26 16:18 | NURSING ---
NO UROLOGY COVERAGE IN [place].
--- NOTE | 2023-02-26 16:47 | NURSING ---
CALLED [facility] FOR TRANSFER. BRET TALKING TO DR RAO
--- NOTE | 2023-02-26 17:06 | NURSING ---
DR ONTIVEROS, [facility]ENNY GARVIN, FOR DR RAO
--- NOTE | 2023-02-26 17:21 | NURSING ---
[facility] ONTIVER[facility] ROOM [id number] NURSE TO NURSE [phone]
--- NOTE | 2023-02-26 17:35 | NURSING ---
CALLED [facility], ETA IS 60 MIN
[2023-02-26 17:58] VITALS: BP 121/64; PULSE 65; RESP 15; O2SAT 98
[2023-02-26 18:23] LABS: Anion Gap 9 (5-15); BUN 18 mg/dL (7-18); BUN/Creat Ratio 10.2 RATIO (10-20); Calcium,Total 7.8 mg/dL (8.5-10.1); Chloride 93 mmol/L (98-107); Creatinine, Serum 1.77 mg/dL (0.70-1.30); EST Glomerular Filtration Rate 40 mL/min (>60); Est Glom Filt Rate - Afr Amer 49 mL/min (>60); Glucose 78 mg/dL (74-106); Potassium 4.4 mmol/L (3.5-5.1); Sodium Level 123 mmol/L (136-145)
== END 2023-02-26 18:55 | disposition short-term general hospital (02) ==
PROVIDERS: Emergency Provider Emergency Medicine; PCP Internal Medicine; Visit Provider Emergency Medicine
DX: N20.1 Calculus of ureter (principal); J44.9 Chronic obstructive pulmonary disease, unspecified; G40.909 Epilepsy, unspecified, not intractable, without status epilepticus; E87.1 Hypo-osmolality and hyponatremia; E78.5 Hyperlipidemia, unspecified; Z87.891 Personal history of nicotine dependence; I25.10 Atherosclerotic heart disease of native coronary artery without angina pectoris; Z79.899 Other long term (current) drug therapy; Z79.82 Long term (current) use of aspirin; Z90.49 Acquired absence of other specified parts of digestive tract
CPT/HCPCS: 80048; 81001; 85025; 96361; 96374; 96375; 96376; 99285; J7030; A4216; J2405

== ENCOUNTER → 2023-07-08 | Outpatient (CLI) | payer MEDICARE, OTHER, SELFPAY ==
--- NOTE | 2023-07-08 08:49 | BI_ITS ---
MAMMOGRAPHY - BILATERAL DIAGNOSTIC REASON FOR EXAM: Male, 72 years old. Right subareolar breast lump. PERTINENT HISTORY: Non-contributory. TECHNIQUE: Digital bilateral breast tee (3D mammographic acquisition) in the CC and MLO projections. 2-D mediolateral oblique (MLO) and craniocaudad (CC) views of both breasts were obtained. CAD: Full Field Digital Mammography with Computer Added Detection was performed. COMPARISON: None. Baseline examination. FINDINGS: Breast Composition: The breasts are almost entirely fatty. Small amount of tissue is seen in the right alveolar region. There are no dominant masses or suspicious calcifications. No other significant abnormalities are identified. BI/DIAG MAMM W/CAD, BILAT IMPRESSION: Small amount of fibroglandular tissue is seen behind the right areola. Correlation with ultrasound is recommended. ASSESSMENT CATEGORY: BIRADS Category 0: Incomplete. Need additional imaging evaluation. A letter regarding these results will be sent to the patient by the facility within 30 days. Approximately 10% of breast cancers are not detected by mammography. A normal mammogram should not delay biopsy of a clinically suspicious abnormality. Electronically Signed: Charbel Rivera MD at 11:15 EST ,
--- NOTE | 2023-07-08 08:49 | US_ITS ---
STUDY: ULTRASOUND BREAST - RIGHT REASON FOR EXAM: Male, 72 years old. Left retroareolar palpable abnormality. TECHNIQUE: Axial and longitudinal images of the RIGHT breast were performed with a high resolution ultrasound transducer. # OF IMAGES: 25 COMPARISON: Comparison is made with prior mammogram done earlier today. FINDINGS: RIGHT Breast: The retroareolar region of the right breast was examined. There is evidence of fibroglandular tissue. No sonographic abnormality is seen. US/Breast Limited Unilateral IMPRESSION: Retroareolar glandular tissue suggestive of gynecomastia. ASSESSMENT CATEGORY: BIRADS Category 2: Benign. A letter regarding these results will be sent to the patient by the facility within 30 days. Electronically Signed: Charbel Rivera MD at 15:00 EST ,
== END | disposition home or self-care (01) ==
LOC: OPBI 08:47
PROVIDERS: PCP Internal Medicine; Referring Provider Internal Medicine; Visit Provider Internal Medicine
DX: N63.41 Unspecified lump in right breast, subareolar (principal); M81.0 Age-related osteoporosis without current pathological fracture
CPT/HCPCS: 76642; 77062; 77066; G0279

== ENCOUNTER → 2023-09-22 | Outpatient (CLI) | payer MEDICARE, OTHER, SELFPAY ==
--- NOTE | 2023-09-22 09:04 | BD_ITS ---
STUDY: DUAL ENERGY X-RAY ABSORPTIOMETRY / DXA REASON FOR EXAM: Male, 72 years old. [id number] TECHNIQUE: Bone Mineral Density (BMD) measurements of lumbar spine and bilateral hips were obtained. COMPARISON: None. FINDINGS: Lumbar Spine (L1-L4): g/cm2 (0.890) / T-score (-1.8) / Z-score (-0.8) Findings are suggestive of osteopenia with a moderate fracture risk. Left Femur Total: g/cm2 (0.617) / T-score (-2.8) / Z-score (-2.0) Left Femoral Neck: g/cm2 (0.590) / T-score (-2.5) / Z-score (-1.2) Right Femur Total: g/cm2 (0.610) / T-score (-2.8) / Z-score (-2.0) Right Femoral Neck: g/cm2 (0.594) / T-score (-2.5) / Z-score (-1.2) The T-Scores on the most recent prior examination were: Lumbar Spine (L1-L4): There has been worsening of bone density since the previous examination. Left Femur Total: which represents a worsening of 6.9%. Right Femur Total: which represents a worsening of 7.5%. BD/Dexa Bone Density Study IMPRESSION: The patient is considered osteoporotic as outlined below according to World Lee Organization (WHO) criteria with a high fracture risk. There has been worsening of bone density since the previous examination. Reference Information: The T-score is the number of standard deviations above or below the standard which is normal for young adults at their peak bone mineral density. The World Health Organization (WHO) interprets the T-scores as follows: Above -1 Normal bone density Between -1 and -2.5 Osteopenia Equal to / or below -2.5 Osteoporosis As a practical clinical guideline, osteopenia may be graded as follows: Mild -1 through -1.5 Moderate -1.6 through -2.0 Severe -2.1 through -2.4 The Z-score is the number of standard deviations above or below age-matched controls. A Z-score of less than -1.5 would be considered abnormal. References: 1. NIH Osteoporosis and Related Bone Diseases www osteo.org 2. International Society for Clinical Densitometry www iscd.org 3. National Osteoporosis Foundation www nof.org Electronically Signed: Charbel Rivera MD at 10:13 EST ,
== END | disposition home or self-care (01) ==
PROVIDERS: PCP Internal Medicine; Referring Provider Internal Medicine; Visit Provider Internal Medicine
DX: M81.0 Age-related osteoporosis without current pathological fracture (principal)
CPT/HCPCS: 77080

== ENCOUNTER → 2024-02-03 | Outpatient (CLI) | payer MEDICARE, OTHER, SELFPAY ==
--- NOTE | 2024-02-03 13:49 | US_ITS ---
STUDY: THYROID ULTRASOUND REASON FOR EXAM: Male, 73 years old. Known nodules TECHNIQUE: Ultrasound evaluation of the thyroid was performed with real-time and static iqbal-scale imaging. COMPARISON: 01/10/2023 FINDINGS: RIGHT LOBE: The right lobe of the thyroid gland measures 3.8 x 1.6 x 1.4 cm. There is a homogeneous echotexture. There is a stable solid/cystic 0.8 cm nodule This nodule is mixed cystic and solid, hypoechoic, hywjm-phth-kety, smoothly marginated and contains no echogenic foci. TI-RADS points: 3. TI-RADS category: TR3. This nodule is mildly suspicious but no FNA or follow-up is necessary given the small size of this nodule. LEFT LOBE: The left lobe of the thyroid gland measures 3.9 x 1.7 x 1.7 cm. There is a homogeneous echotexture. There are 2 separate stable solid and cystic nodules, larger measures is 0.8 cm, smaller 0.5 cm. Nodules are mixed cystic and solid, hypoechoic, vfuyy-rqqr-lcai, smoothly marginated and contains no echogenic foci. TI-RADS points: 3. TI-RADS category: TR3. Nodules are mildly suspicious but no FNA or follow-up is necessary given the small size of this nodule. ISTHMUS: The isthmus measures 0.4 cm. The regional lymph nodes are normal. US/Thyroid IMPRESSION: Normal-sized heterogeneous thyroid gland with bilateral stable solid and cystic nodules. Categorization and follow-up as described Electronically Signed: Atul Can MD at 12:29 EDT ,
--- NOTE | 2024-02-03 13:49 | CDU_ITS ---
Reason For Study: CAROTID ARTERY STENOSIS Rt. Velocities/BP Lt. Velocities/BP Prox CCA 136.3/28.5 cm/sec. Prox CCA 128.0/32.4 cm/sec. Mid CCA 75.4/16.0 cm/sec. Mid CCA 100.3/25.4 cm/sec. Dist CCA 77.6/16.0 cm/sec. Dist CCA 116.7/25.4 cm/sec. Prox ICA 98.1/29.3 cm/sec. Prox ICA 98.4/27.2 cm/sec. Mid ICA 90.7/23.2 cm/sec. Mid ICA 116.7/40.0 cm/sec. Dist ICA 87.1/29.3 cm/sec. Dist ICA 80.1/24.1 cm/sec. Rt. ICA/CCA = 98.1/75.4=1.3. Lt. ICA/CCA = 116.7/100.3=1.2. Prox ECA 94.1/12.7 cm/sec. Prox ECA 105.8/16.3 cm/sec. Rt. Vert. 50.4/15.3 cm/sec. Lt. Vert. 53.5/8.1 cm/sec. Right Extracranial There is homogeneous, smooth atherosclerotic plaque noted in the right common carotid artery. There is homogeneous, smooth atherosclerotic plaque noted in the right external carotid artery. Antegrade flow is noted in the right vertebral artery. Left Extracranial There is homogeneous, smooth atherosclerotic plaque noted in the left common carotid artery. There is heterogeneous, irregular atherosclerotic plaque noted in the left internal carotid artery. There is heterogeneous, irregular atherosclerotic plaque noted in the left external carotid artery. Antegrade flow is noted in the left vertebral artery. Procedure Carotid Duplex 85883. This is a Carotid Duplex examination using B-mode, color flow and specral Doppler. Exam performed in department. VL/Carotid Duplex Ultrasound Interpretation Summary Mild (<50%) stenosis right extracranial internal carotid. Mild (<50%) stenosis left extracranial internal carotid. Patent and antegrade vertebrals bilaterally Ordering Physician: Jessica Simental Referring Physician: Jessica Simental Performed By: Natalie Sarabia RDCS, RVT
--- NOTE | 2024-02-03 13:49 | CT_ITS ---
EXAM: CT CHEST WITHOUT INTRAVENOUS CONTRAST CLINICAL INDICATION: pulmonary nodule TECHNIQUE: Helically acquired images were obtained of the chest without intravenous contrast. This CT exam was performed using one or more of the following dose reduction techniques: automated exposure control, adjustment of the mA and/or kV according to patient size, and/or use of iterative reconstruction technique. COMPARISON: Thyroid ultrasound, 02/03/2024 FINDINGS: LUNGS AND PLEURAL SPACES: Partially calcified rounded posterior right upper lobe pulmonary nodule measuring 1.3 cm consistent with a granuloma for which no follow-up is indicated. Minimal bilateral dependent airspace disease is almost certainly atelectasis. Centrilobular emphysematous changes are present bilaterally. 2 mm right upper lobe pulmonary nodule. No pleural effusion or thickening. HEART: Coronary artery calcifications. Coronary artery stents. Heart size is normal. No pericardial effusion. MEDIASTINUM: No significant abnormality. No mediastinal or hilar adenopathy. Esophagus is unremarkable. No hiatal hernia. THYROID: No significant abnormality. No thyroid lesions. BONES/JOINTS: Age-indeterminate likely chronic mid thoracic compression deformities without significant retropulsion. Degenerative changes in the spine and shoulders. No suspicious lytic or blastic abnormality. VASCULATURE: Atherosclerosis of the aorta and its branch vessels. LIVER: Multiple hepatic cysts are present for which no follow-up is indicated. KIDNEYS AND URETERS: Left renal cysts are identified for which no follow-up is indicated. CT/Chest without Contrast IMPRESSION: 1. Minimal bilateral dependent airspace disease is almost certainly atelectasis. 2. Centrilobular emphysematous changes are present bilaterally. NOTE: Emphysema on CT is an independent risk factor for lung cancer. Consider low dose CT for lung cancer screening between the ages of 50 and 77. Given the other small pulmonary nodule, this recommendation is in alignment with Fleischner Society criteria recommendations. 3. Age-indeterminate likely chronic mid thoracic compression deformities without significant retropulsion. Correlate for potential mid back pain and consider follow-up MRI if clinically indicated. Electronically Signed: Tani Byrd DO at 19:30 EDT ,
== END | disposition home or self-care (01) ==
LOC: CT 13:48
PROVIDERS: PCP Internal Medicine; Referring Provider Internal Medicine; Visit Provider Internal Medicine
DX: I65.23 Occlusion and stenosis of bilateral carotid arteries (principal)
CPT/HCPCS: 71250; 76536; 93880

== ENCOUNTER 2024-05-19 01:42 | Inpatient (IN) | payer MEDICARE, OTHER, SELFPAY ==
[2024-05-19] VITALS (19 sets, daily range): BP systolic 101–152; BP diastolic 68–89; PULSE 59–97; RESP 16–26; TEMP 36.4–36.7; O2SAT 67–99; BMI 23.8; BMI 23.2; BMI 23.1
--- NOTE | 2024-05-19 01:45 | EDS_ITS ---
HPI History of Present Illness Chief Complaint: Shortness of Breath PFSH PFSH Medical History (Reviewed 05/30/23 @ 11:26 by Rhona Monroe WORD PROCESSING OPERATOR, WORD PROCESSING OPERATOR-C) Anemia Atherosclerosis of coronary artery of [place] heart without angina pectoris COPD (chronic obstructive pulmonary disease) Depression Erectile dysfunction Hyperlipidemia Lung nodule Obstructive sleep apnea Osteoporosis PVD (peripheral vascular disease) Seizure disorder Thyroid nodule Home Medications ?Medication ?Instructions ?Recorded ?Last Taken ?Type cholecalciferol (vitamin D3) 25 2,000 unit PO DAILY 09/06/18 Unknown History mcg/drop (1,000 unit/drop) oral drops umeclidinium 62.5 mcg-vilanterol 1 inh inhalation Q24H 09/18/20 02/26/23 History 25 mcg/actuation powdr for inhalation atorvastatin 80 mg tablet 80 mg PO QHS 04/21/21 Unknown History phenobarbital 16.2 mg tablet 64.8 mg PO QHS 60 days #240 tabs 04/21/21 Unknown History phenytoin sodium extended 100 mg 300 mg PO QHS 04/21/21 Unknown History capsule aspirin 81 mg tablet,delayed 81 mg PO QHS 02/26/23 Unknown History release (Adult Low Dose Aspirin) albuterol sulfate 90 mcg/actuation 2 inh inhalation Q8H PRN shortness 05/19/24 Unknown History aerosol inhaler of breath or wheezing amoxicillin 875 mg-potassium 1 tab PO BID 05/19/24 Unknown History clavulanate 125 mg tablet prednisone 10 mg tablet 10 mg PO DAILY 05/19/24 Unknown History Allergy/AdvReac Type Severity Reaction Status Date / Time No Known Allergies Allergy Verified 05/19/24 01:58 Family History (Reviewed 05/30/23 @ 11:26 by Rhona Monroe WORD PROCESSING OPERATOR, WORD PROCESSING OPERATOR-C) Father Kidney disease Heart disease CHF Sister Diabetes Surgical History History of appendectomy History of left heart catheterization (09/15/18) History of tonsillectomy Social History household members: spouse Smoking Status: Current every day smoker tobacco type: cigarettes alcohol intake: current alcohol intake frequency: holidays/special occasions only substance use type: does not use MDM MDM MDM Narrative Medical decision making narrative: HISTORY OF PRESENT ILLNESS: 73-year-old male history of COPD, peripheral vascular disease, STEPHANY, seizure disorder presents with concern for cough/cold symptoms. Per triage note here with shortness of breath. Notes 3 to 4 days of cough and worsening shortness of breath. Denies vomiting. Denies chest pain. Denies leg swelling. The patient does not wear oxygen at home. REVIEW OF SYSTEMS: Pertinent positives: Cough/cold symptoms Pertinent negatives: Chest pain PHYSICAL EXAM: Nursing triage notes reviewed, Vital signs reviewed Constitutional: please see mdm HENT: MMM Eyes: Pupils equal round and reactive to light, Extraocular muscles intact Neck: No stridor, no JVD, full neck ROM Lungs: Clear to auscultation, No wheezing or rales. No increased work of breathing, no conversational dyspnea, no accessory muscle use, no nasal flaring. No respiratory distress noted Heart: Regular rate and rhythm, No murmurs, No rubs and No gallops, 2+ distal pulses (radial, femoral, posterior tibial) in all extremities Abdomen: Soft, there is no tenderness, rigidity, rebound or guarding, no obvious peritoneal signs, no palpable pulsatile abdominal masses, no auscultated abdominal bruit : No CVAT Extremities: No edema Neuro: No focal neurological deficits, cranial nerves II through XII intact, 5/5 strength in all extremities. Intact sensation to light touch in all extremities, 2+ reflexes bilateral patella tendons. Normal gait. No ataxia. Skin: No rash or lesions noted MEDICAL DECISION MAKING: Chief Complaint: Cough/cold symptoms External records reviewed: Prior medications, images and ED visits reviewed Factors affecting care:. COPD, peripheral vascular disease, STEPHANY, seizure disorder Consults: Internal medicine (Dr. Viramontes) [facility] Narrative: Patient was initially tachypneic at a rate of 24, hypoxic at 67%. Placed on supplemental O2 immediately. I considered the following differential diagnosis: COPD exacerbation, pneumonia, COVID, flu, anemia, ACS, arrhythmia, PE ALL IMAGES (IF OBTAINED) HAVE BEEN PERSONALLY REVIEWED AND INTERPRETED BY MYSELF. Chest x-ray was read reviewed person myself shows evidence of right sided infiltrate consistent with likely pneumonia CBC with no leukocytosis, mild anemia, no thrombocytopenia BMP without evidence of significant electrolyte abnormalities, no anion gap, no acute kidney injury. High-sensitivity troponin is negative, no evidence of myocardial ischemia BNP within normal limits suggestive of no increased ventricular stretch or volume overload The synthesis of the patient's history, physical exam suggest COPD exacerbation precipitated by community-acquired pneumonia. Patient received empiric COPD treatment and antibiotics. The patient and/or family, caregivers express understanding. The patient and/or family, caregivers agrees with the plan. Shared decision making: I will have a discussion with the patient and or visitors regarding risk/benefits of further testing or admission. They will be made aware of of the risk/benefits inherent in this decision they will be given the opportunity to voice understanding. Total critical care time today provided was at least 0 minutes. This excludes separately billable procedures. Critical care time (if documented) is secondary to the patient having high probability of clinically significant/life threatening deterioration in the patient's condition which required my urgent intervention. Impression: 1. Dyspnea 2. Hypoxia 3. Community-acquired pneumonia 4. Hyponatremia Dispo: Admit to [facility] This note was generated with [employer] dictation software. It may contain incorrect words, spelling, and punctuation that were not noted in review of the chart prior to signing. Discharge Plan Triage Chief Complaint: Shortness of Breath Other Complaint: Cold Sx ED Provider: Alton Harrison Dx/Rx/DC Orders Prescriptions: No Action cholecalciferol (vitamin D3) 1,000 unit/drop drops 2,000 unit PO DAILY phenobarbital 16.2 mg tablet 64.8 mg PO QHS 60 Days Qty: 240 Patient Comments: TAKE 1 TABLET BY MOUTH FOUR TIMES A DAY umeclidinium-vilanterol 62.5-25 mcg/actuation blister with device 1 inh INHALATION Q24H atorvastatin 80 mg tablet 80 mg PO QHS phenytoin sodium extended 100 mg capsule 300 mg PO QHS aspirin [Adult Low Dose Aspirin] 81 mg tablet,delayed release (DR/EC) 81 mg PO QHS prednisone 10 mg tablet 10 mg PO DAILY amoxicillin-pot clavulanate 875-125 mg tablet 1 tab PO BID albuterol sulfate 90 mcg/actuation HFA aerosol inhaler 2 inh inhalation Q8H PRN (Reason: shortness of breath or wheezing) Primary Care Provider: Jessica Simental Referrals: Jessica Simental DO [Primary Care Provider] - Print Language: Yakut
--- NOTE | 2024-05-19 01:55 | RAD_ITS ---
INDICATION: SOB EXAMINATION/TECHNIQUE: X-RAY - XR Chest 1 View COMPARISON: Prior study dated: 02/03/2024 FINDINGS: LINES/DEVICES: None. LUNGS: The lungs are hyperexpanded. No consolidation, edema or effusion. No pneumothorax. MEDIASTINUM AND CARDIOVASCULAR STRUCTURES: Cardiac silhouette not enlarged. Central airways and mediastinal contour are unremarkable. BONES AND SOFT TISSUES: No acute abnormality. RAD/Chest 1 View (Portable) IMPRESSION: No acute pulmonary finding. There is known emphysema. Electronically Signed: Shadi Gutiérrez MD at 3:49 EDT ,
--- NOTE | 2024-05-19 01:56 | EKG12_ITS ---
Test Reason : SOB Blood Pressure : / mmHG Vent. Rate : 084 BPM Atrial Rate : 084 BPM P-R Int : 192 ms QRS Dur : 086 ms QT Int : 362 ms P-R-T Axes : 080 072 061 degrees QTc Int : 427 ms Normal sinus rhythm Normal ECG Confirmed by German Colin ([id number]), city editor RAMON MITCHELL ([id number]) on 05/21/2024 10:50:25 AM Referred By: SHERRY Confirmed By:German Colin
[2024-05-19] MEDS: MethylPREDNISolone 125 MG/2 ML Vial IV (02:12)
[2024-05-19 02:16] LABS: Absolute Lymphocyte Count 2.74 X10^3/uL (0.83-4.51); Absolute Neutrophil Count 4.5 X10^3/uL (2.0-7.7); Basophil# 0.07 X10^3/uL; Basophil% 0.8 % (0-1); Eosinophils% 1.2 % (0-5); Hematocrit 37.8 % (40-54); Hemoglobin 12.5 g/dL (13.0-16.5); Lymphocyte # 2.74 X10^3/ul (0.83-4.51); Lymphocyte % 32.7 % (19-41); Mean Corp Hgb Conc 33.1 g/dL (32-36); Mean Corpuscular Hgb 30.2 pg (27.0-32.0); Mean Corpuscular Volume 91.3 fL (80-94); Mean Platelet Vol. 9.8 fl (6.2-12.0); Monocyte# 0.97 X10^3/uL; Monocyte% 11.6 % (0-10); NRBC Flagged by Analyzer 0 % (0-5); Neutrophil # 4.46 X10^3/uL (2.7-7.7); Neutrophil % 53.2 % (47-70); Platelet Count 227 K/mm3 (150-450); RBC Distribution Width CV 13.2 % (11.6-14.6); RBC Distribution Width SD 45.1 fl (35.1-43.9); Red Blood Count 4.14 M/mm3 (4.6-6.2); White Blood Count 8.4 K/mm3 (4.4-11.0)
[2024-05-19] MEDS: Ipratropium/Albuterol Sulfate 3 ML AMPUL.NEB INHALATION ×5 (02:25→19:00)
[2024-05-19 02:46] LABS: Anion Gap 8 (5-15); BUN 10 mg/dL (7-18); BUN/Creat Ratio 10.5 RATIO (10-20); Calcium,Total 9.1 mg/dL (8.5-10.1); Chloride 100 mmol/L (98-107); Creatinine, Serum 0.95 mg/dL (0.70-1.30); EST Glomerular Filtration Rate 82 mL/min (>60); Est Glom Filt Rate - Afr Amer 99 mL/min (>60); Estimated Creatinine Clearance 74.88 ml/min; Glucose 109 mg/dL (74-106); Potassium 3.7 mmol/L (3.5-5.1); Sodium Level 133 mmol/L (136-145); Troponin-I HS 22 pg/mL (3.0-78.0)
[2024-05-19 02:52] LABS: BNP,B-Type NATRIURETIC PEPTIDE 79.9 pg/mL (0-100)
--- NOTE | 2024-05-19 02:53 | HP.PCM.HOS_ITS ---
HPI - General General Date of Admission: 05/19/24 Date of Service: 05/19/24 Chief Complaint: Dyspnea, cough, congestion/rhinorrhea, recent PNA dx outpatient on abx, worsening. HPI Narrative The patient is a 73 y/o M w/ PMHx: COPD. CAD, Carotid disease, Seizure disorder, HTN, HLD, Chart reported STEPHANY, Chronic anemia, Anxiety and Depression, Tobacco use, CAD, Chronic hyponatremia, CKD stage II versus III per GFR trending with unclear subtype who presents to the [facility] ED on 05/19/24 with history of onset URI type symptoms with cough, congestion, runny nose and progressively worsening dyspnea with recent PCP evaluation on Tuesday with initiation of oral Augmentin for pneumonia however despite antibiotic therapy he is continued to feel worse and more dyspneic prompting ED evaluation. He notes his symptoms have primarily been cough, congestion, rhinorrhea, mild headache but no light or sound sensitivity, decreased appetite, dyspnea and cough occasionally productive as well as wheezing. Workup in the ED included T97.8, heart rate 93, BP 152/87, respiratory rate 24, noted initially to be 867% on room air improving to 82% on 2 L and eventually to 97% on 3 L nasal cannula eventually able to de-escalate noted to be 96% on 2.5 L nasal cannula, CBC with WBC 8.4, human 12.5, MCV 91.3, platelet 227 without marked shift, BMP with sodium 133, glucose 109, troponin 22, BNP 79.9, chest x-ray preliminary read with concern for right middle lobe infiltrate awaiting final radiology review read, rapid SARS COVID/influenza/RSV PCR pending upon evaluation of patient. In the ED patient ministered DuoNeb therapy as well as Solu-Medrol 125 mg IV x 1 as well as IV Rocephin and IV azithromycin. [facility] Medical History Atherosclerosis of coronary artery of [place] heart without angina pectoris Osteoporosis PVD (peripheral vascular disease) Anemia Depression Thyroid nodule Obstructive sleep apnea COPD (chronic obstructive pulmonary disease) Erectile dysfunction Seizure disorder Lung nodule Hyperlipidemia Home Medications ?Medication ?Instructions ?Recorded ?Last Taken ?Type cholecalciferol (vitamin D3) 25 2,000 unit PO DAILY 09/06/18 Unknown History mcg/drop (1,000 unit/drop) oral drops umeclidinium 62.5 mcg-vilanterol 1 inh inhalation Q24H 09/18/20 02/26/23 History 25 mcg/actuation powdr for inhalation atorvastatin 80 mg tablet 80 mg PO QHS 04/21/21 Unknown History phenobarbital 16.2 mg tablet 64.8 mg PO QHS 60 days #240 tabs 04/21/21 Unknown History phenytoin sodium extended 100 mg 300 mg PO QHS 04/21/21 Unknown History capsule aspirin 81 mg tablet,delayed 81 mg PO QHS 02/26/23 Unknown History release (Adult Low Dose Aspirin) albuterol sulfate 90 mcg/actuation 2 inh inhalation Q8H PRN shortness 05/19/24 Unknown History aerosol inhaler of breath or wheezing amoxicillin 875 mg-potassium 1 tab PO BID 05/19/24 Unknown History clavulanate 125 mg tablet prednisone 10 mg tablet 10 mg PO DAILY 05/19/24 Unknown History Allergy/AdvReac Type Severity Reaction Status Date / Time No Known Allergies Allergy Verified 05/19/24 01:58 Family History Father Kidney disease Heart disease CHF Sister Diabetes Mother Asthma Dementia Surgical History History of left heart catheterization (09/15/18) History of tonsillectomy History of appendectomy Social History household members: spouse Smoking Status: Current every day smoker tobacco type: cigarettes Smoking packs per day: 0.5 Smoking cigarettes per day: 10.0 alcohol intake: current alcohol intake frequency: holidays/special occasions only substance use type: does not use ROS ROS Narrative Admission Review of Systems: CONSTITUTIONAL: No weight loss, + fever, chills, weakness or fatigue. HEENT: + Mild headache, congestion, rhinorrhea. Eyes: No visual loss, blurred vision, double vision or yellow sclerae. Ears, Nose, Throat: No hearing loss, sneezing, sore throat. SKIN: No rash or itching, lesions, wounds. CARDIOVASCULAR: + Mild increased bilateral ankle swelling, acute on chronic. No chest pain, chest pressure or chest discomfort, palpitations, orthopnea, syncopal events. RESPIRATORY: + Dyspnea, coughing, occasional productive sputum, wheezing. No hemoptysis. GASTROINTESTINAL: + Anorexia. No nausea, vomiting or diarrhea, abdominal pain, melena, BRBPR. GENITOURINARY: No dysuria, frequency, urgency or retention. NEUROLOGICAL: + Mild headache, seizure disorder history. No dizziness, syncope, paralysis, ataxia, numbness or tingling in the extremities, focal weakness, change in bowel or bladder control. MUSCULOSKELETAL: + muscle, back pain, joint pain or stiffness. HEMATOLOGIC: + Chronic anemia, easy bleeding/bruising. LYMPHATICS: No enlarged nodes. No history of splenectomy. PSYCHIATRIC: No history of depression or anxiety. ENDOCRINOLOGIC: + reports of sweating, cold or heat intolerance. No polyuria or polydipsia. ALLERGIES: No history of asthma, hives, eczema or rhinitis. Vital Signs Vital Signs Vital Signs: 05/19/24 01:43 05/19/24 01:44 05/19/24 01:50 Temperature 97.8 F Temperature Source Temporal Pulse Rate 93 97 Respiratory Rate 24 H 24 H Respiratory Effort Respiratory Depth Respiratory Pattern Blood Pressure 152/87 H 152/87 H Blood Pressure Mean 108 108 Pulse Ox 67 67 82 Oxygen Delivery Method Room Air Room Air Nasal Cannula Oxygen Flow Rate (L/min) 2 05/19/24 01:55 05/19/24 01:59 05/19/24 02:03 Temperature Temperature Source Pulse Rate Respiratory Rate Respiratory Effort Short of Breath Labored Accessory Muscle Use Pursed Lip Respiratory Depth Respiratory Pattern Tachypnea Blood Pressure Blood Pressure Mean Pulse Ox 97 96 Oxygen Delivery Method Nasal Cannula Nasal Cannula Oxygen Flow Rate (L/min) 3 2.5 05/19/24 02:03 05/19/24 02:26 Temperature Temperature Source Pulse Rate 87 Respiratory Rate 18 Respiratory Effort Short of Breath Labored Accessory Muscle Use Pursed Lip Respiratory Depth Deep Respiratory Pattern Tachypnea Normal Blood Pressure Blood Pressure Mean Pulse Ox Oxygen Delivery Method Nasal Cannula Oxygen Flow Rate (L/min) 2.5 Weight Weight: 175 lb 7.807 oz Body Mass Index (BMI) 23.8 Physical Exam Narrative Physical Examination: General: Awake, alert, oriented x 3 and cooperative, seated upright in the ED bed, fatigued, occasional coughing bouts. Skin: Normal color, normal turgor, no icterus, no cyanosis except occasional stage ecchymoses, abrasions HEENT: AT/NC, EOMI, PERRLA, mildly dry MM, no carotid bruits or JVD noted. Lungs: Diminished, greater bases, right greater than left, mildly increased respiratory rate but no distress, oxygenation significantly improved since initial ED arrival, mildly rhonchorous, frequent end expiratory wheezing. Heart: Regular rate and rhythm; no gallop, rub audible. Abdomen: Soft, NTTP, ND, mildly hyperactive BS, no appreciated HSM. Extremities: No cyanosis, no clubbing, mild ankle not markedly pitting edema, slightly more than his baseline he reports Neurological: Patient awake, alert, oriented as noted, cognitive function intact; pupils equally reactive to light and accommodation, cranial nerves gross normal, moving all 4 extremities, no focal deficits, strength moderately to severely global decrease secondary to acute presentation complaints. Psychiatric: Affect appears fatigued, mildly ill-appearing, no acute evidence of depressive or anxiety feelings. Results Lab / Micro Data 05/19/24 02:08 05/19/24 02:08 Labs: Laboratory Results - last 24 hr 05/19/24 02:08: WBC 8.4, RBC 4.14 L, Hgb 12.5 L, Hct 37.8 L, MCV 91.3, MCH 30.2, MCHC 33.1, RDW Std Deviation 45.1 H, RDW Coeff of [place] 13.2, Plt Count 227, MPV 9.8, Immature Gran % (Auto) 0.500, Neut % (Auto) 53.2, Lymph % (Auto) 32.7, [place] % (Auto) 11.6 H, Eos % (Auto) 1.2, Baso % (Auto) 0.8, Absolute Neuts (auto) 4.5, Absolute Lymphs (auto) 2.74, Nucleated RBC % 0, Sodium 133 L, Potassium 3.7, Chloride 100, Carbon Dioxide 25.0, Anion Gap 8, BUN 10, Creatinine 0.95, Estim Creat Clear Calc 74.88, Est GFR (MDRD) Af Amer 99, Est GFR (MDRD) Non-Af 82, BUN/Creatinine Ratio 10.5, Glucose 109 H, Calcium 9.1, Troponin I High Sens 22, B-Natriuretic Peptide 79.9 Assessment & Plan Assessment/Plan (1) Acute hypoxic respiratory failure: (2) COPD exacerbation: (3) Pneumonia: PLAN: Plan The patient is a 73 y/o M w/ PMHx: COPD, CAD, Carotid disease, Seizure disorder, HTN, HLD, Chart reported STEPHANY, Chronic anemia, Anxiety and Depression, Tobacco use, CAD, Chronic hyponatremia, CKD stage II versus III per GFR trending who presents to the [facility] ED on 05/19/24 with history of onset URI type symptoms with cough, congestion, runny nose and progressively worsening dyspnea with recent PCP evaluation on Tuesday with initiation of oral Augmentin for pneumonia however despite antibiotic therapy he is continued to feel worse and more dyspneic prompting ED evaluation. #1. Acute Hypoxic Respiratory Failure secondary to Acute on Chronic COPD exacerbation and RML CAP, failed outpatient abx therapy: Will admit to [facility] given improved VS with supplemental NC, will maintain on oxygen with wean as tolerated to room air, continue ATC duonebs, PRN albuterol, IV methylprednisolone, maintain on IV Rocephin and IV azithromycin, HOB, IS parameters, will obtain sputum Cx, full respiratory viral panel, urine antigens, PT/OT/case management consulted for discharge planning. #2. CAD: Status post cardiac catheterization with demonstrated 60% stenosis of the mid left anterior descending artery stenosis and a 30% stenosis of the mid right coronary stenosis with FFR evaluation noted to be normal with medical therapy recommended at that point, continue aspirin, statin, not on any beta- amaris likely secondary to underlying COPD nor on any CINTIA number/ARB. #3. Carotid disease: Most recent carotid ultrasound noted 02/06/24 with mild less than 50% stenosis right extracranial internal carotid bilaterally with patent antegrade vertebrals bilaterally, encourage continued outpatient follow- up as previously arranged, continue aspirin and statin therapy. #4. Chronic Kidney Disease Stage II versus stage III, unclear subtype as more remotely was consistent with stage II but since 01/2023 levels more consistent with stage III, unclear if acute visit labs: Admission BUN/Cr 10/0.95, GFR 82, baseline renal function more recently 1.7-1.9, last noted 02/26/23 creatinine 1.77, repeat BMP in AM to further elucidate staging. #5. Chronic hyponatremia: Admission sodium 133, baseline sodium noted previously ranging 120-133 with last noted 02/26/23 sodium 123 at that time, will continue to trend. #6. Anxiety and depression: Not on any chronic regimen per current list, encourage continued outpatient follow-up as previously arranged. #7. Chronic anemia, normocytic: Admission hemoglobin 12.5, MCV 91.3, similar to previous, baseline hemoglobin primarily 12-13 range, will continue to trend CBC. #8. Hypertension: Noted in chart history, from previous review blood pressures have primarily been normal range not on medication, current presentation with BP above goal however this could certainly be secondary to his acute respiratory presentation, continue to monitor and add regimen if necessary, as needed IV hydralazine in the interim. #9. Hyperlipidemia: Continue home statin therapy. #10. Seizure disorder: We will continue patient home phenytoin and phenobarbital regimen. #11. Tobacco Abuse: Ongoing 1/2 pack/day cigarette tobacco usage, encouraged cessation, inpatient consultation per RT, NR if desired. #12. Chart reported STEPHANY: Patient unaware of diagnosis, noted in chart history, no formal testing noted in the system and he denies using any PAP therapy. #13. DVT prophylaxis: lovenox. #14. CODE status: Patient HCPOA is his who is present and living will is currently in place. Discussed CODE status at length including difference between FULL code, DNR-CCA and DNR-CC status. Following discussions about the differences in these status, requested DNR-CCA with intubation. Advanced Care Planning Face to Face Time: 16 minutes. Charges/Coding Visit Charges Inpatient E&M: 74873 Init Hosp L3 Procedures Hospitalists Procedures: 71457 Advncd Care Plan 30 Min
[2024-05-19] MEDS: Ceftriaxone 1 GM/50 ML BAG IV ×2 (03:46→20:48)
[2024-05-19] MEDS: 0.9% Normal Saline (1000mL) 1,000 ML 100 ML IV (04:43)
[2024-05-19] MEDS: Azithromycin 500 MG in Dextrose 5%-Water (250mL Bag) 250 ML 250 MG IV ×2 (04:44→21:29)
[2024-05-19] MEDS: guaiFENesin 10 ML UDC (200MG/10ML) 20 ML PO ×2 (05:34→20:59)
[2024-05-19 07:10] LABS: Absolute Lymphocyte Count 0.57 X10^3/uL (0.83-4.51); Absolute Neutrophil Count 5.3 X10^3/uL (2.0-7.7); Basophil# 0.02 X10^3/uL; Basophil% 0.3 % (0-1); Hematocrit 36.8 % (40-54); Lymphocyte # 0.57 X10^3/ul (0.83-4.51); Lymphocyte % 9.4 % (19-41); Mean Corp Hgb Conc 32.6 g/dL (32-36); Mean Corpuscular Hgb 30.2 pg (27.0-32.0); Mean Corpuscular Volume 92.7 fL (80-94); Mean Platelet Vol. 9.9 fl (6.2-12.0); Monocyte# 0.09 X10^3/uL; Monocyte% 1.5 % (0-10); NRBC Flagged by Analyzer 0 % (0-5); Neutrophil # 5.34 X10^3/uL (2.7-7.7); Neutrophil % 88.5 % (47-70); POSITIVE DIFFERENTIAL YES; Platelet Count 199 K/mm3 (150-450); RBC Distribution Width CV 13.3 % (11.6-14.6); RBC Distribution Width SD 45.9 fl (35.1-43.9); Red Blood Count 3.97 M/mm3 (4.6-6.2)
--- NOTE | 2024-05-19 10:04 | CASEMGMT ---
HENRY CANTU Assessment Face to Face with patient for initial transition planning/care coordination assessment. HENRY CANTU introduced self and role at [facility], pt voices understanding. Pt is A&Ox4 and is resting comfortably in bed and is calm. Care providers, pharmacy, and demographics verified. Admitting dx: RF, COPD Ex PCP: Jessica Simental Specialists: Denies Preferred Pharmacy: [facility] Insurance:MCR A/B, MCR Supp Prescription Benefit: Yes - Part D MCR LNOK: Lauriesam Wren (W) Living Arrangements: Pt lives with his in a 2 story home with a flat entrance ADLs/IADLs: Ind Transportation: Self, DME: [facility] [employer]. Pt denies all other DME. Pt is currently on 3L of additional oxygen. A verbal list of local in-network DME companies provided to the pt at this time. Pt prefers [facility] if he qualifies for home oxygen HHC/SNF: Denies HH and SNF Hx. Pt states he has been to [facility] for OP Tx Pt?s goal: Home with OP Tx Plan: Home with possible O2 and OP Tx through [facility]. Pt denies HHC and SNF needs. Pt states that he will make his own appt for OP Tx through [facility]. Green sheet placed on the chart for OP Tx and possible O2 if the pt discharged over the weekend. Maddi Blakely RN, CM
[2024-05-19 10:13] LABS: AST(SGOT) 19 U/L (15-37); Alanine Aminotransfer ALT/SGPT 20 U/L (16-61); Albumin, Serum 3.4 g/dL (3.2-5.0); Alkaline Phosphatase 78 U/L (45-117); Anion Gap 7 (5-15); BUN 10 mg/dL (7-18); BUN/Creat Ratio 10.5 RATIO (10-20); Calcium,Total 8.6 mg/dL (8.5-10.1); Chloride 101 mmol/L (98-107); Creatinine, Serum 0.95 mg/dL (0.70-1.30); EST Glomerular Filtration Rate 82 mL/min (>60); Est Glom Filt Rate - Afr Amer 99 mL/min (>60); Estimated Creatinine Clearance 74.88 ml/min; Globulin 3.4 g/dL (2.2-4.2); Glucose 195 mg/dL (74-106); Protein, Total 6.8 g/dL (6.4-8.2); Sodium Level 133 mmol/L (136-145)
--- NOTE | 2024-05-19 11:22 | CPS ---
Pt says he doesn't wear a Bipap @home and doesn't want to wear one here. He is not sure why it was ordered.
--- NOTE | 2024-05-19 14:25 | PCM.PROGNOTE ---
Subjective Subjective Patient seen and examined. He had no active complaints. He denied any shortness of breath, palpitations, dizziness, nausea or vomiting. He feels his breathing is improving. He is on 3 L of oxygen. Review of symptoms otherwise negative. Objective Data Objective Data Vital Signs: Vital Signs Temp Pulse Resp BP Pulse Ox O2 Del Method O2 Flow Rate 97.7 F L 64 16 101/68 98 Nasal Cannula 3 05/19/24 14:17 05/19/24 14:17 05/19/24 14:17 05/19/24 14:17 05/19/24 14:17 05/19/24 14:17 05/19/24 14:17 Oxygen Flow Rate (L/min) 3 Oxygen Delivery Method Nasal Cannula Weight: 171 lb 4.787 oz Body Mass Index (BMI) 23.1 Intake & Output: Intake and Output for Last 24 Hours 05/17/24 05/18/24 05/19/24 23:59 23:59 23:59 Intake Total 605 / 605 Balance 605 / 605 Lab / Micro Data 05/19/24 06:50 05/19/24 06:50 Labs: Laboratory Results - last 24 hr 05/19/24 02:08: WBC 8.4, RBC 4.14 L, Hgb 12.5 L, Hct 37.8 L, MCV 91.3, MCH 30.2, MCHC 33.1, RDW Std Deviation 45.1 H, RDW Coeff of [place] 13.2, Plt Count 227, MPV 9.8, Immature Gran % (Auto) 0.500, Neut % (Auto) 53.2, Lymph % (Auto) 32.7, [place] % (Auto) 11.6 H, Eos % (Auto) 1.2, Baso % (Auto) 0.8, Absolute Neuts (auto) 4.5, Absolute Lymphs (auto) 2.74, Nucleated RBC % 0, Sodium 133 L, Potassium 3.7, Chloride 100, Carbon Dioxide 25.0, Anion Gap 8, BUN 10, Creatinine 0.95, Estim Creat Clear Calc 74.88, Est GFR (MDRD) Af Amer 99, Est GFR (MDRD) Non-Af 82, BUN/Creatinine Ratio 10.5, Glucose 109 H, Calcium 9.1, Troponin I High Sens 22, B-Natriuretic Peptide 79.9 05/19/24 06:50: WBC 6.0, RBC 3.97 L, Hgb 12.0 L, Hct 36.8 L, MCV 92.7, MCH 30.2, MCHC 32.6, RDW Std Deviation 45.9 H, RDW Coeff of [place] 13.3, Plt Count 199, MPV 9.9, Immature Gran % (Auto) 0.300, Neut % (Auto) 88.5 H, Lymph % (Auto) 9.4 L, [place] % (Auto) 1.5, Eos % (Auto) 0.0, Baso % (Auto) 0.3, Absolute Neuts (auto) 5.3, Absolute Lymphs (auto) 0.57 L, Nucleated RBC % 0, Sodium 133 L, Potassium 4.0, Chloride 101, Carbon Dioxide 25.0, Anion Gap 7, BUN 10, Creatinine 0.95, Estim Creat Clear Calc 74.88, Est GFR (MDRD) Af Amer 99, Est GFR (MDRD) Non-Af 82, BUN/Creatinine Ratio 10.5, Glucose 195 H, Calcium 8.6, Total Bilirubin 0.30, AST 19, ALT 20, Alkaline Phosphatase 78, Total Protein 6.8, Albumin 3.4, Globulin 3.4, Albumin/Globulin Ratio 1.0 Micro: Microbiology 05/19/24 05:17 Mucosa - Nasopharyngeal Respiratory Panel (PCR) - Final 05/19/24 04:23 Urine, Clean Catch Legionella Antigen - Final 05/19/24 04:23 Urine, Clean Catch Streptococcus pneumoniae Antigen (M - Final 05/19/24 02:09 Mucosa - Nose SARS-CoV-2, Influenza & RSV (PCR) - Final Radiography Diagnostic Testing: Radiology Impression Chest X-Ray 05/19/24 01:55 IMPRESSION: No acute pulmonary finding. There is known emphysema. Electronically Signed: Shadi Gutiérrez MD at 3:49 EDT , Physical Exam Const alert, oriented x3 and no apparent distress General Appearance: cooperative and well developed HEENT normocephalic, head/scalp atraumatic, moist oral mucous membranes and oropharynx normal Eyes PERRL and EOMs intact bilaterally Neck no lymphadenopathy, supple and no JVD Lymph Lymphatic: no lymphadenopathy noted Resp Resp Narrative: moderately diminished breath sounds bibasally, no wheezes or crackles. On 3L of oxygen Cardio regular rate, regular rhythm, S1 normal heart sound, S2 normal heart sound and no murmurs GI normal to inspection, nondistended, normoactive bowel sounds, soft to palpation, non-tender and non-distended Extremity normal capillary refill, no clubbing, cyanosis or edema and no calf tenderness General Extremity: no tenderness to palpation of joints or extremities Skin General Skin Exam: no breakdown Neuro CN's II-XII intact bilaterally, no focal motor deficits, no sensory deficits noted and deep tendon reflexes 2+ bilaterally Motor Exam: strength 5/5 throughout and general weakness Psych thought process normal and cooperative Appearance: appropriate Assessment & Plan Assessment/Plan (1) Pneumonia: (2) COPD exacerbation: (3) Acute hypoxic respiratory failure: PLAN: Plan #Hypoxia due to acute on chronic COPD exacerbation and community acquired pneumonia Failed outpatient therapy. Currently on 3 L of oxygen. On IV ceftriaxone and azithromycin. Sputum culture pending. Urine for strep and Legionella negative. Respiratory panel also negative. Titrate oxygen to maintain saturation above 90%. Breathing treatments bronchodilators. On IV Solu-Medrol #CAD On aspirin and statin. Had cardiac cath which showed 60% stenosis of the mid left anterior descending artery and 30% stenosis of the mid RCA. FFR evaluation was noted to be normal so medical therapy recommended at this point. #Hyponatremia: This is chronic. Sodium was 133 on admission. Will monitor. #Hyperlipidemia: On statin #Seizure disorder: On phenytoin and phenobarbital. #Nicotine dependence: Patient continues to smoke about half a pack daily. Counseled to quit. #DVT prophylaxis: Lovenox Charges/Coding Visit Charges Inpatient E&M: 59778 Subs Hosp L2
[2024-05-19] MEDS: Phenytoin Na 100 MG Capsule 300 MG PO (20:57)
[2024-05-19] MEDS: Phenobarbital 32.4 MG Tablet 64.8 MG PO (20:58)
[2024-05-19] MEDS: Atorvastatin Calcium 80 MG Tablet PO (21:29)
[2024-05-19] MEDS: Aspirin E.C. 81 MG Tablet PO (21:29)
[2024-05-20] VITALS (8 sets, daily range): BP systolic 115–136; BP diastolic 73–85; PULSE 64–102; RESP 18–20; TEMP 36.4–36.8; O2SAT 84–96; BMI 24.6
[2024-05-20] MEDS: 0.9% Saline Lock 10 ML Syringe IV ×4 (06:24→22:37)
[2024-05-20] MEDS: Ipratropium/Albuterol Sulfate 3 ML AMPUL.NEB INHALATION ×3 (07:04→19:50)
[2024-05-20 07:50] LABS: Absolute Lymphocyte Count 2.04 X10^3/uL (0.83-4.51); Absolute Neutrophil Count 4.6 X10^3/uL (2.0-7.7); Basophil# 0.05 X10^3/uL; Basophil% 0.7 % (0-1); Eosinophil# 0.01 X10^3/uL; Eosinophils% 0.1 % (0-5); Hematocrit 35.8 % (40-54); Hemoglobin 11.7 g/dL (13.0-16.5); Lymphocyte # 2.04 X10^3/ul (0.83-4.51); Lymphocyte % 27.2 % (19-41); Mean Corp Hgb Conc 32.7 g/dL (32-36); Mean Corpuscular Hgb 30.8 pg (27.0-32.0); Mean Corpuscular Volume 94.2 fL (80-94); Mean Platelet Vol. 9.7 fl (6.2-12.0); Monocyte# 0.78 X10^3/uL; Monocyte% 10.4 % (0-10); NRBC Flagged by Analyzer 0 % (0-5); Neutrophil # 4.58 X10^3/uL (2.7-7.7); Neutrophil % 61.2 % (47-70); Platelet Count 218 K/mm3 (150-450); RBC Distribution Width CV 13.7 % (11.6-14.6); RBC Distribution Width SD 47.4 fl (35.1-43.9); White Blood Count 7.5 K/mm3 (4.4-11.0)
[2024-05-20 08:09] LABS: AST(SGOT) 16 U/L (15-37); Alanine Aminotransfer ALT/SGPT 18 U/L (16-61); Albumin, Serum 3.3 g/dL (3.2-5.0); Alkaline Phosphatase 71 U/L (45-117); Anion Gap 5 (5-15); BUN 11 mg/dL (7-18); BUN/Creat Ratio 13.8 RATIO (10-20); Calcium,Total 8.5 mg/dL (8.5-10.1); Chloride 105 mmol/L (98-107); EST Glomerular Filtration Rate 100 mL/min (>60); Est Glom Filt Rate - Afr Amer 121 mL/min (>60); Estimated Creatinine Clearance 88.92 ml/min; Globulin 3.2 g/dL (2.2-4.2); Glucose 93 mg/dL (74-106); Potassium 4.1 mmol/L (3.5-5.1); Protein, Total 6.5 g/dL (6.4-8.2); Sodium Level 136 mmol/L (136-145)
[2024-05-20] MEDS: Enoxaparin 40 MG/0.4 ML Syringe SC (10:13)
[2024-05-20] MEDS: guaiFENesin 10 ML UDC (200MG/10ML) 20 ML PO ×3 (10:23→21:05)
--- NOTE | 2024-05-20 12:44 | PN_ITS ---
Subjective Subjective Patient seen and examined. He says he feels better and is down to 1L of oxygen. He denies any cough, chest pain, palpitations, dizziness, nausea, vomiting or any other symptoms. Review of systems is otherwise negative. He had walking pulse which showed that he required increased amount of oxygen. Objective Data Objective Data Vital Signs: Vital Signs Temp Pulse Resp BP Pulse Ox O2 Del Method O2 Flow Rate 97.8 F 72 18 115/73 84 Nasal Cannula 2 05/20/24 08:04 05/20/24 08:04 05/20/24 08:04 05/20/24 08:04 05/20/24 10:54 05/20/24 08:08 05/20/24 10:54 Oxygen Flow Rate (L/min) [ 4 AMBULATING with Oxygen #3] Oxygen Flow Rate (L/min) [ 3 AMBULATING with Oxygen #2] Oxygen Flow Rate (L/min) [ 2 AMBULATING with Oxygen #1] Oxygen Flow Rate (L/min) [At 2 REST with Oxygen] Oxygen Flow Rate (L/min) 2 Oxygen Delivery Method Nasal Cannula Weight: 181 lb 14.102 oz Body Mass Index (BMI) 24.6 Intake & Output: Intake and Output for Last 24 Hours 05/18/24 05/19/24 05/20/24 23:59 23:59 23:59 Intake Total 2059 / 5 1350 / 1350 Balance 2059 / 2934 1350 / 1350 Lab / Micro Data 05/20/24 06:46 05/20/24 06:46 Labs: Laboratory Results - last 24 hr 05/20/24 06:46: WBC 7.5, RBC 3.80 L, Hgb 11.7 L, Hct 35.8 L, MCV 94.2 H, MCH 30.8, MCHC 32.7, RDW Std Deviation 47.4 H, RDW Coeff of [place] 13.7, Plt Count 218, MPV 9.7, Immature Gran % (Auto) 0.400, Neut % (Auto) 61.2, Lymph % (Auto) 27.2, [place] % (Auto) 10.4 H, Eos % (Auto) 0.1, Baso % (Auto) 0.7, Absolute Neuts (auto) 4.6, Absolute Lymphs (auto) 2.04, Nucleated RBC % 0, Sodium 136, Potassium 4.1, Chloride 105, Carbon Dioxide 26.0, Anion Gap 5, BUN 11, Creatinine 0.80, Estim Creat Clear Calc 88.92, Est GFR (MDRD) Af Amer 121, Est GFR (MDRD) Non-Af 100, BUN/Creatinine Ratio 13.8, Glucose 93, Calcium 8.5, Total Bilirubin 0.30, AST 16, ALT 18, Alkaline Phosphatase 71, Total Protein 6.5, Albumin 3.3, Globulin 3.2, Albumin/Globulin Ratio 1.0 Micro: Microbiology 05/19/24 05:17 Mucosa - Nasopharyngeal Respiratory Panel (PCR) - Final 05/19/24 04:23 Urine, Clean Catch Legionella Antigen - Final 05/19/24 04:23 Urine, Clean Catch Streptococcus pneumoniae Antigen (M - Final 05/19/24 02:09 Mucosa - Nose SARS-CoV-2, Influenza & RSV (PCR) - Final Physical Exam Const alert, oriented x3 and no apparent distress General Appearance: cooperative HEENT normocephalic, head/scalp atraumatic, moist oral mucous membranes and oropharynx normal Eyes PERRL and EOMs intact bilaterally Neck no lymphadenopathy, supple and no JVD Lymph Lymphatic: no lymphadenopathy noted Resp Resp Narrative: moderately diminished breath sounds bibasally, no wheezes or crackles. On 2 L of oxygen Cardio regular rate, regular rhythm, S1 normal heart sound, S2 normal heart sound and no murmurs GI normal to inspection, nondistended, normoactive bowel sounds, soft to palpation, non-tender and non-distended Extremity normal capillary refill, no clubbing, cyanosis or edema and no calf tenderness General Extremity: no tenderness to palpation of joints or extremities Skin General Skin Exam: no breakdown Neuro CN's II-XII intact bilaterally, no focal motor deficits, no sensory deficits noted and deep tendon reflexes 2+ bilaterally Motor Exam: strength 5/5 throughout and general weakness Psych thought process normal and cooperative Appearance: appropriate Assessment & Plan Assessment/Plan (1) Pneumonia: (2) COPD exacerbation: (3) Acute hypoxic respiratory failure: PLAN: Plan #Hypoxia due to acute on chronic COPD exacerbation and community acquired pneumonia * Failed outpatient therapy. * Was down to 1L of oxygn but now on 3L of oxygen. On IV ceftriaxone and azithromycin. * Sputum culture pending. Urine for strep and Legionella negative. Respiratory panel also negative. * Titrate oxygen to maintain saturation above 90%. Breathing treatments bronchodilators. * On IV Solu-Medrol #CAD * On aspirin and statin. Had cardiac cath which showed 60% stenosis of the mid left anterior descending artery and 30% stenosis of the mid RCA. * FFR evaluation was noted to be normal so medical therapy recommended at this point. #Hyponatremia: This is chronic. Sodium was 133 on admission. Will monitor. #Hyperlipidemia: On statin #Seizure disorder: On phenytoin and phenobarbital. #Nicotine dependence: Patient continues to smoke about half a pack daily. Counseled to quit. #DVT prophylaxis: Lovenox Charges/Coding Visit Charges Inpatient E&M: 71215 Subs Hosp L2
[2024-05-20] MEDS: FLU VACCINE **HIGH DOSE** TV 24-25 180 MCG/0.5 ML SYRINGE IM (12:53)
--- NOTE | 2024-05-20 13:12 | NURSING ---
respiratory called for aerosol
[2024-05-20] MEDS: 0.9% Normal Saline (250mL Bag) 250 ML 15 ML IV (21:05)
[2024-05-20] MEDS: Ceftriaxone 1 GM/50 ML BAG IV (21:05)
[2024-05-20] MEDS: Phenytoin Na 100 MG Capsule 300 MG PO (21:07)
[2024-05-20] MEDS: Phenobarbital 32.4 MG Tablet 64.8 MG PO (21:13)
[2024-05-20] MEDS: Atorvastatin Calcium 80 MG Tablet PO (21:14)
[2024-05-20] MEDS: Aspirin E.C. 81 MG Tablet PO (21:14)
[2024-05-20] MEDS: Azithromycin 500 MG in Dextrose 5%-Water (250mL Bag) 250 ML 175 MG IV (22:37)
[2024-05-21] VITALS (12 sets, daily range): BP systolic 119–146; BP diastolic 73–92; PULSE 78–106; RESP 12–22; TEMP 36.5–37.1; O2SAT 94–98; BMI 24.6
[2024-05-21] MEDS: MELATONIN 3 MG TABLET PO (01:24)
[2024-05-21] MEDS: Acetaminophen 325 MG Tablet 650 MG PO (01:24)
[2024-05-21] MEDS: Ipratropium/Albuterol Sulfate 3 ML AMPUL.NEB INHALATION ×4 (02:00→23:25)
[2024-05-21] MEDS: 0.9% Saline Lock 10 ML Syringe IV ×2 (04:45→13:09)
[2024-05-21 07:14] LABS: Absolute Lymphocyte Count 1.06 X10^3/uL (0.83-4.51); Absolute Neutrophil Count 5.4 X10^3/uL (2.0-7.7); Basophil# 0.03 X10^3/uL; Basophil% 0.4 % (0-1); Hematocrit 35.4 % (40-54); Hemoglobin 11.3 g/dL (13.0-16.5); Lymphocyte # 1.06 X10^3/ul (0.83-4.51); Lymphocyte % 14.9 % (19-41); Mean Corp Hgb Conc 31.9 g/dL (32-36); Mean Corpuscular Hgb 30.3 pg (27.0-32.0); Mean Corpuscular Volume 94.9 fL (80-94); Mean Platelet Vol. 10.2 fl (6.2-12.0); Monocyte# 0.56 X10^3/uL; Monocyte% 7.9 % (0-10); NRBC Flagged by Analyzer 0 % (0-5); Neutrophil # 5.43 X10^3/uL (2.7-7.7); Neutrophil % 76.4 % (47-70); Platelet Count 207 K/mm3 (150-450); RBC Distribution Width CV 13.7 % (11.6-14.6); RBC Distribution Width SD 48.2 fl (35.1-43.9); Red Blood Count 3.73 M/mm3 (4.6-6.2); White Blood Count 7.1 K/mm3 (4.4-11.0)
[2024-05-21 07:40] LABS: Anion Gap 6 (5-15); BUN 13 mg/dL (7-18); BUN/Creat Ratio 15.2 RATIO (10-20); Calcium,Total 8.7 mg/dL (8.5-10.1); Chloride 103 mmol/L (98-107); Creatinine, Serum 0.86 mg/dL (0.70-1.30); EST Glomerular Filtration Rate 93 mL/min (>60); Est Glom Filt Rate - Afr Amer 112 mL/min (>60); Estimated Creatinine Clearance 82.71 ml/min; Glucose 116 mg/dL (74-106); Potassium 4.7 mmol/L (3.5-5.1); Sodium Level 136 mmol/L (136-145)
--- NOTE | 2024-05-21 08:33 | PN.HOSP_ITS ---
Reason for Visit Reason for Visit: Diagnoses Pneumonia, unspecified organism (05/19/24) Chronic obstructive pulmonary disease with (acute) exacerbation (05/19/24) Acute respiratory failure with hypoxia (05/19/24) Subjective Subjective Breathing okay. Objective Data Objective Data Vital Signs: Vital Signs Temp Pulse Resp BP Pulse Ox O2 Del Method O2 Flow Rate 37.1 C 88 22 H 146/92 H 96 Nasal Cannula 2 05/21/24 02:13 05/21/24 02:13 05/21/24 02:13 05/21/24 02:13 05/21/24 02:13 05/21/24 02:13 05/21/24 02:13 Oxygen Flow Rate (L/min) [ 4 AMBULATING with Oxygen #3] Oxygen Flow Rate (L/min) [ 3 AMBULATING with Oxygen #2] Oxygen Flow Rate (L/min) [ 2 AMBULATING with Oxygen #1] Oxygen Flow Rate (L/min) [At 2 REST with Oxygen] Oxygen Flow Rate (L/min) 2 Oxygen Delivery Method Nasal Cannula Weight: 82.5 kg Body Mass Index (BMI) 24.6 Intake & Output: Intake and Output for Last 24 Hours 05/19/24 05/20/24 05/21/24 23:59 23:59 23:59 Intake Total 2059 1800 / 1800 846.5 / 846.5 Balance 2059 1800 / 1800 846.5 / 846.5 Lab / Micro Data 05/21/24 06:12 05/21/24 06:12 Labs: Laboratory Results - last 24 hr 05/21/24 06:12: WBC 7.1, RBC 3.73 L, Hgb 11.3 L, Hct 35.4 L, MCV 94.9 H, MCH 30.3, MCHC 31.9 L, RDW Std Deviation 48.2 H, RDW Coeff of [place] 13.7, Plt Count 207, MPV 10.2, Immature Gran % (Auto) 0.400, Neut % (Auto) 76.4 H, Lymph % (Auto) 14.9 L, [place] % (Auto) 7.9, Eos % (Auto) 0.0, Baso % (Auto) 0.4, Absolute Neuts (auto) 5.4, Absolute Lymphs (auto) 1.06, Nucleated RBC % 0, Sodium 136, Potassium 4.7, Chloride 103, Carbon Dioxide 27.0, Anion Gap 6, BUN 13, Creatinine 0.86, Estim Creat Clear Calc 82.71, Est GFR (MDRD) Af Amer 112, Est GFR (MDRD) Non-Af 93, BUN/Creatinine Ratio 15.2, Glucose 116 H, Calcium 8.7 Micro: Microbiology 05/19/24 05:17 Mucosa - Nasopharyngeal Respiratory Panel (PCR) - Final 05/19/24 04:23 Urine, Clean Catch Legionella Antigen - Final 05/19/24 04:23 Urine, Clean Catch Streptococcus pneumoniae Antigen (M - Final 05/19/24 02:09 Mucosa - Nose SARS-CoV-2, Influenza & RSV (PCR) - Final Physical Exam Const alert and no apparent distress HEENT head/scalp atraumatic and moist oral mucous membranes Resp normal respiratory effort and no retractions Resp Narrative: Slight diminished breath sounds throughout. No wheezes Cardio regular rate, regular rhythm, S1 normal heart sound and S2 normal heart sound GI normal to inspection, nondistended, normoactive bowel sounds, soft to palpation, non-tender and non-distended Extremity normal to inspection and full ROM Assessment & Plan Assessment/Plan (1) COPD exacerbation: PLAN: on BDs and methylprednisolone. Chest x-ray shows no acute infiltrate but patient on antibiotics with ceftriaxone and azithromycin. Legionella, Streptococcus, COVID-19, respiratory panel negative. Sputum culture pending. Continue with antibiotics for now but his sputum culture is negative, would discontinue antibiotics. PLAN: Plan Chronic conditions * CAD: Stable. Continue with aspirin, statin. * PAD: Stable * Chronic hyponatremia: Stable * Seizure disorder: Phenytoin and phenobarbital. VTE prophylaxis with enoxaparin Disposition: To be determined. Dissipate discharge home in 1 to 2 days with or without oxygen. Charges/Coding Visit Charges Inpatient E&M: 13060 Subs Hosp L2
[2024-05-21] MEDS: Enoxaparin 40 MG/0.4 ML Syringe SC (09:27)
[2024-05-21] MEDS: guaiFENesin 10 ML UDC (200MG/10ML) 20 ML PO (09:28)
--- NOTE | 2024-05-21 12:55 | CASEMGMT ---
HENRY CANTU delivered OP PT and OT script to Pt. Pt requested a copy be faxed to [facility] and pt will call to schedule appointment. Faxed script to [facility]. Placed copy of order in pt chart.
[2024-05-21] MEDS: Aspirin E.C. 81 MG Tablet PO (20:52)
[2024-05-21] MEDS: Phenytoin Na 100 MG Capsule 300 MG PO (20:52)
[2024-05-21] MEDS: Atorvastatin Calcium 80 MG Tablet PO (20:52)
[2024-05-21] MEDS: Ceftriaxone 1 GM/50 ML BAG IV (20:53)
[2024-05-21] MEDS: Phenobarbital 32.4 MG Tablet 64.8 MG PO (20:53)
[2024-05-21] MEDS: Azithromycin 500 MG in Dextrose 5%-Water (250mL Bag) 250 ML 250 MG IV (20:58)
[2024-05-22] MEDS: Acetaminophen 325 MG Tablet 650 MG PO (00:24)
[2024-05-22] MEDS: guaiFENesin 10 ML UDC (200MG/10ML) 20 ML PO (00:24)
[2024-05-22 03:10] VITALS: BMI 23.8
[2024-05-22 05:21] VITALS: BP 122/75; PULSE 60; RESP 18; TEMP 36.5; O2SAT 99
[2024-05-22 05:23] VITALS: O2SAT 99
[2024-05-22] MEDS: 0.9% Saline Lock 10 ML Syringe IV (05:26)
--- NOTE | 2024-05-22 07:45 | PN.HOSP_ITS ---
Reason for Visit Reason for Visit: Diagnoses Pneumonia, unspecified organism (05/19/24) Chronic obstructive pulmonary disease with (acute) exacerbation (05/19/24) Acute respiratory failure with hypoxia (05/19/24) Subjective Subjective Breathing better. Objective Data Objective Data Vital Signs: Vital Signs Temp Pulse Resp BP Pulse Ox O2 Del Method O2 Flow Rate 36.5 C L 60 18 122/75 H 99 Nasal Cannula 2 05/22/24 05:21 05/22/24 05:21 05/22/24 05:21 05/22/24 05:21 05/22/24 05:23 05/22/24 05:23 05/22/24 05:23 Oxygen Flow Rate (L/min) [ 4 AMBULATING with Oxygen #3] Oxygen Flow Rate (L/min) [ 3 AMBULATING with Oxygen #2] Oxygen Flow Rate (L/min) [ 2 AMBULATING with Oxygen #1] Oxygen Flow Rate (L/min) [At 2 REST with Oxygen] Oxygen Flow Rate (L/min) 2 Oxygen Delivery Method Nasal Cannula Weight: 79.8 kg Body Mass Index (BMI) 23.8 Intake & Output: Intake and Output for Last 24 Hours 05/20/24 05/21/24 05/22/24 23:59 23:59 23:59 Intake Total 1800 / 1800 1151.5 / 1551.5 600 / 600 Balance 1800 / 1800 1151.5 / 1551.5 600 / 600 Lab / Micro Data 05/21/24 06:12 05/21/24 06:12 Micro: Microbiology 05/20/24 17:00 Sputum, Expectorated/Coughed Gram Stain - Final 05/19/24 05:17 Mucosa - Nasopharyngeal Respiratory Panel (PCR) - Final 05/19/24 04:23 Urine, Clean Catch Legionella Antigen - Final 05/19/24 04:23 Urine, Clean Catch Streptococcus pneumoniae Antigen (M - Final 05/19/24 02:09 Mucosa - Nose SARS-CoV-2, Influenza & RSV (PCR) - Final Physical Exam Const alert and no apparent distress HEENT head/scalp atraumatic and moist oral mucous membranes Resp normal respiratory effort and no retractions Resp Narrative: Diminished bilaterally. No respiratory distress. No conversational dyspnea. Cardio regular rate, regular rhythm, S1 normal heart sound and S2 normal heart sound Assessment & Plan Assessment/Plan (1) COPD exacerbation: PLAN: on BDs and methylprednisolone. Chest x-ray shows no acute infiltrate but patient on antibiotics with ceftriaxone and azithromycin. Legionella, Streptococcus, COVID-19, respiratory panel negative. Sputum culture so far negative. Will discontinue antibiotics as there is no clear evidence of pneumonia on x-ray nor cultures. Will discharge patient with prednisone 40 mg for 5 days as well as albuterol nebulizers as needed. Patient advised to follow-up with pulmonary to get him on goal-directed therapy to minimize flareups in the future and to be formally evaluated for his COPD. Patient will require 2 L of oxygen with rest and 4 L with activity. Patient asking about the portable condenser, from that would be more of an outpatient evaluation if you are requiring long-term oxygen. Told him I suspect that this would be short-term, possibly weeks. Oxygen testing reviewed and patient is ambulatory in home and in the community and requires home oxygen with portability. PLAN: Plan Chronic conditions * CAD: Stable. Continue with aspirin, statin. * PAD: Stable * Chronic hyponatremia: Stable * Seizure disorder: Phenytoin and phenobarbital. VTE prophylaxis with enoxaparin Disposition: To home
[2024-05-22] MEDS: Enoxaparin 40 MG/0.4 ML Syringe SC (08:50)
--- NOTE | 2024-05-22 08:59 | NURSING ---
pt requesting aerosol treatment-walking pox ordered-will wait until aerosol complete
[2024-05-22 09:03] VITALS: RESP 20; O2SAT 96
[2024-05-22] MEDS: Ipratropium/Albuterol Sulfate 3 ML AMPUL.NEB INHALATION (09:14)
[2024-05-22 09:37] VITALS: PULSE 87; RESP 18
[2024-05-22 10:00] VITALS: O2SAT 87; O2SAT 89; O2SAT 91; O2SAT 92; O2SAT 93
--- NOTE | 2024-05-22 11:16 | DS.PCM_ITS ---
Providers Date of Admission: 05/19/24 Primary Care Physician: Dr. Jessica Simental DO Reason For Visit: ACUTE HYPOXIC RESPIRATORY FAILURE, COPD EXAC, Diagnosis Discharge Diagnosis (1) COPD exacerbation: Status: Chronic Code(s): J44.1 - Chronic obstructive pulmonary disease with (acute) exacerbation Plan: on BDs and methylprednisolone. Chest x-ray shows no acute infiltrate but patient on antibiotics with ceftriaxone and azithromycin. Legionella, Streptococcus, COVID-19, respiratory panel negative. Sputum culture so far negative. Will discontinue antibiotics as there is no clear evidence of pneumonia on x-ray nor cultures. Will discharge patient with prednisone 40 mg for 5 days as well as albuterol nebulizers as needed. Patient advised to follow-up with pulmonary to get him on goal-directed therapy to minimize flareups in the future and to be formally evaluated for his COPD. Patient will require 2 L of oxygen with rest and 4 L with activity. Patient asking about the portable condenser, from that would be more of an outpatient evaluation if you are requiring long-term oxygen. Told him I suspect that this would be short-term, possibly weeks. Oxygen testing reviewed and patient is ambulatory in home and in the community and requires home oxygen with portability. Plan Chronic conditions * CAD: Stable. Continue with aspirin, statin. * PAD: Stable * Chronic hyponatremia: Stable * Seizure disorder: Phenytoin and phenobarbital. VTE prophylaxis with enoxaparin Disposition: To home Medications at Discharge Home Medications cholecalciferol (vitamin D3) 25 mcg/drop (1,000 unit/drop) oral drops 2,000 unit PO DAILY 09/06/18 umeclidinium 62.5 mcg-vilanterol 25 mcg/actuation powdr for inhalation 1 inh inhalation Q24H 09/18/20 atorvastatin 80 mg tablet 80 mg PO QHS 04/21/21 phenobarbital 16.2 mg tablet 64.8 mg PO QHS 60 days #240 tabs 04/21/21 phenytoin sodium extended 100 mg capsule 300 mg PO QHS 04/21/21 aspirin 81 mg tablet,delayed release (Adult Low Dose Aspirin) 81 mg PO QHS 02/26/23 albuterol sulfate 90 mcg/actuation aerosol inhaler 2 inh inhalation Q8H PRN shortness of breath or wheezing 05/19/24 albuterol sulfate 2.5 mg/3 mL (0.083 %) solution for nebulization 2.5 mg (3 mL) inhalation Q2H PRN PRN Dyspnea, wheezing #90 mL 05/22/24 prednisone 20 mg tablet 40 mg (2 x 20 mg) PO DAILY #10 tabs 05/22/24 Hospital Course Operations None Summary of Care Provided Minutes Spent on Discharge: 35 Hospital Course: Patient presents with acute exacerbation of COPD. Patient was put on antibiotics in case there is underlying pneumonia but did not appear to be so and so antibiotics be discontinued. Patient did well with treatments but does require oxygen upon discharge, 4 L with activity and 2 L with rest. Patient will complete a prednisone burst and advised to follow-up with pulmonary as outpatient. Weight / BMI Weight Weight: 79.8 kg Body Mass Index (BMI) 23.8 ABG / Lab / Microbiology Data 05/21/24 06:12 05/21/24 06:12 Microbiology: Microbiology 05/20/24 17:00 Sputum, Expectorated/Coughed Gram Stain - Final 05/20/24 17:00 Sputum, Expectorated/Coughed Respiratory Culture - Final 05/19/24 05:17 Mucosa - Nasopharyngeal Respiratory Panel (PCR) - Final 05/19/24 04:23 Urine, Clean Catch Legionella Antigen - Final 05/19/24 04:23 Urine, Clean Catch Streptococcus pneumoniae Antigen (M - Final 05/19/24 02:09 Mucosa - Nose SARS-CoV-2, Influenza & RSV (PCR) - Final D/C Instructions Discharge Diet: No restrictions Meaningful Use Info Meaningful Use Meaningful Use Diagnoses (Choose all that apply): None applicable Ischemic Stroke Statin Dosing Therapy Reference: STATIN DOSE THERAPY REFERENCE: * Patients > 75 years receive moderate or high dose statin therapy. * Patients 75 years or YOUNGER should receive HIGH intensity statin dose unless contraindicated. You will be required to document reason for non-treatment if statin daily dose does not meet guidelines. HIGH DOSE STATIN THERAPY DAILY Atorvastatin > than or = to 40 mg Rosuvastatin > than or = to 20 mg Amlodipine + Atorvastatin > than or = to 2.5/40 mg Ezetimibe + Simvastatin 10/80 mg Simvastatin 80mg Discharge Plan Admission Admit Date/Time: 05/19/24 02:57 Primary Reason for Your Visit: COPD exacerbation Attending Provider: David Bui Primary Care Provider: Jessica Simental Consulting Providers: Ivory Viramontes; Mela Mattson Instructions Additional Instructions / Restrictions: You had a flareup of COPD (also known as emphysema) that may have been initiated by a viral infection. You responded well with therapy. You will need oxygen at home, 4 L with activity and 2 L at rest. Anticipate, with time, that you will require less and less oxygen. Please follow-up with pulmonary to have a formal evaluation and also get on the more optimized maintenance medications. Discharge Orders/Prescriptions Prescriptions: New albuterol sulfate 2.5 mg /3 mL (0.083 %) Solution For Nebulization 2.5 mg inhalation Q2H PRN PRN (Reason: Dyspnea, wheezing) Qty: 90 0RF prednisone 20 mg tablet 40 mg PO DAILY Qty: 10 0RF Continued cholecalciferol (vitamin D3) 1,000 unit/drop drops 2,000 unit PO DAILY phenobarbital 16.2 mg tablet 64.8 mg PO QHS 60 Days Qty: 240 Patient Comments: TAKE 1 TABLET BY MOUTH FOUR TIMES A DAY umeclidinium-vilanterol 62.5-25 mcg/actuation blister with device 1 inh INHALATION Q24H atorvastatin 80 mg tablet 80 mg PO QHS phenytoin sodium extended 100 mg capsule 300 mg PO QHS aspirin [Adult Low Dose Aspirin] 81 mg tablet,delayed release (DR/EC) 81 mg PO QHS albuterol sulfate 90 mcg/actuation HFA aerosol inhaler 2 inh inhalation Q8H PRN (Reason: shortness of breath or wheezing) Discontinued prednisone 10 mg tablet 10 mg PO DAILY amoxicillin-pot clavulanate 875-125 mg tablet 1 tab PO BID Referrals / Follow Up: [facility] [Provider Group] - Within 1 Month Jessica Simental DO [Primary Care Provider] - Within 2 Weeks Disposition Disposition (needs filled in before D/C Order can be placed): Home, Self Care Charges/Coding Visit Charges Inpatient E&M: 24790 Disch Hosp >30min
--- NOTE | 2024-05-22 11:19 | CASEMGMT ---
Addendum entered by Vanesa Barrera 05/22/24 13:03: [place] [facility] [place] [employer] at this time. Addendum entered by Vanesa Barrera 05/22/24 12:17: Per [facility], if their order is created for nebulizer at same time, they can take to pt home when oxygen is delivered. If not, they will drop ship. Updated hospitalist on oxygen requirements that pt qualified for. Addendum entered by Vanesa Barrera 05/22/24 11:59: HENRY CANTU into pt room, pt is aware of instructions to receive the concentrator. Explained 3 times as pt states this is all new to him. He is aware this is also written on his dc instructions as well. Pt did verbalize understanding of the process and will [place] [facility] [place] [facility] [place] message in [employer] if pt would like the nebulizer drop shipped or if he will bead picker from branch. Pt would like his nebulizer to be sent to home when they deliver his oxygen. If they cannot do that, he would like it drop shipped. Message sent to [facility] [place] preferences. Pt denies any further homegoing needs. Original Note: Pt requires 2 L home oxygen continuous. Referral sent [place] [facility] [place] [employer] at this time.
[2024-05-22 11:21] VITALS: BP 115/72; PULSE 85; RESP 20; TEMP 36.6; O2SAT 96
--- NOTE | 2024-05-22 11:56 | PHA.DC.MR.R ---
Pharmacy [place] Med Reconciliation Pharmacy Service has performed discharge medication reconciliation for this patient. The patient's discharge medication list was reviewed for discrepancies and discrepancies were resolved. Medications at Discharge Home Medications cholecalciferol (vitamin D3) 25 mcg/drop (1,000 unit/drop) oral drops 2,000 unit PO DAILY 09/06/18 umeclidinium 62.5 mcg-vilanterol 25 mcg/actuation powdr for inhalation 1 inh inhalation Q24H 09/18/20 atorvastatin 80 mg tablet 80 mg PO QHS 04/21/21 phenobarbital 16.2 mg tablet 64.8 mg PO QHS 60 days #240 tabs 04/21/21 phenytoin sodium extended 100 mg capsule 300 mg PO QHS 04/21/21 aspirin 81 mg tablet,delayed release (Adult Low Dose Aspirin) 81 mg PO QHS 02/26/23 albuterol sulfate 90 mcg/actuation aerosol inhaler 2 inh inhalation Q8H PRN shortness of breath or wheezing 05/19/24 albuterol sulfate 2.5 mg/3 mL (0.083 %) solution for nebulization 2.5 mg (3 mL) inhalation Q2H PRN PRN Dyspnea, wheezing #90 mL 05/22/24 prednisone 20 mg tablet 40 mg (2 x 20 mg) PO DAILY #10 tabs 05/22/24
== END 2024-05-22 14:01 | disposition home or self-care (01) | DRG 191 ==
LOC: ED 03:02 → MS3 03:47
PROVIDERS: Student in an Organized Health Care Education/Training Program; Admitting Provider Family Medicine; Emergency Provider Emergency Medicine; PCP Internal Medicine
DX: J44.1 Chronic obstructive pulmonary disease with (acute) exacerbation (principal); E87.1 Hypo-osmolality and hyponatremia; G40.909 Epilepsy, unspecified, not intractable, without status epilepticus; I10 Essential (primary) hypertension; I73.9 Peripheral vascular disease, unspecified; D64.9 Anemia, unspecified; E78.5 Hyperlipidemia, unspecified; I25.10 Atherosclerotic heart disease of native coronary artery without angina pectoris; F17.210 Nicotine dependence, cigarettes, uncomplicated; Z79.82 Long term (current) use of aspirin
CPT/HCPCS: 36415; 71045; 80048; 80053; 83880; 84484; 85025; 87070; 87205; 87449; 87631; 87633; 90662; 93005; 94640; 94668; 94762; 97802; 99285; 99406; J7030; J7040; J7050; A4216

== ENCOUNTER → 2024-06-19 | Outpatient (CLI) | payer MEDICARE, OTHER, SELFPAY ==
--- NOTE | 2024-06-19 09:58 | PR.HP_ITS ---
History of Present Illness General Arrival date:: 06/19/24 Arrival time:: 09:59 Date of Referral:: 06/05/24 Date of Evaluation: 06/19/24 Referring Physician: Dr. Simental Primary Diagnosis: COPD Gold III Severe 30 % History of Present Pulmonary Event mMRC Breathless Scale: When is the patient short of breath? Y/N Grade: Description of Breathlessness: 0 I only get breathless with strenuous exercise. 1 I get short of breath when hurrying on level ground or walking up a slight hill. 2 On level ground, I walk slower than people of the same age because of breathless, or have to stop for breath when walking at my own pace. 3 I stop for breath after walking 100 yards or after a few minutes on level ground. 4 I am too breathless to leave the house or I am breathless when dressing. Respiratory Problems: Yes Able to Speak in Full Sentences, Dizziness, Ankle Swelling, Anxiety and Dyspnea with Activity; No Retain Secretions, Limited Range of Motion, Chest Pain, Fatigue, Wheezing, Hoarseness, Panic, Dyspnea at Rest, Dyspnea Lying Down Flat or Cough with Secretions Medications Home Medications cholecalciferol (vitamin D3) 25 mcg/drop (1,000 unit/drop) oral drops 2,000 unit PO DAILY 09/06/18 umeclidinium 62.5 mcg-vilanterol 25 mcg/actuation powdr for inhalation 1 inh inhalation Q24H 09/18/20 atorvastatin 80 mg tablet 80 mg PO QHS 04/21/21 phenobarbital 16.2 mg tablet 64.8 mg PO QHS 60 days #240 tabs 04/21/21 phenytoin sodium extended 100 mg capsule 300 mg PO QHS 04/21/21 aspirin 81 mg tablet,delayed release (Adult Low Dose Aspirin) 81 mg PO QHS 02/26/23 albuterol sulfate 90 mcg/actuation aerosol inhaler 2 inh inhalation Q8H PRN shortness of breath or wheezing 05/19/24 albuterol sulfate 2.5 mg/3 mL (0.083 %) solution for nebulization 2.5 mg (3 mL) inhalation Q2H PRN PRN Dyspnea, wheezing #90 mL 05/22/24 prednisone 20 mg tablet 40 mg (2 x 20 mg) PO DAILY #10 tabs 05/22/24 Allergies Allergies No Known Allergies Allergy (Verified 05/19/24 01:58) Secretions Thick:: Yes Amount/Day:: 1 TSP Cough:: No AM: No PM: No Night Time: No A.T.C.: No Sleep Disorder Evaluation Hx of Sleep Apnea: Yes Do you snore loudly (louder than talking or can be heard through closed doors)?: No Do you often feel tired/ fatigued/ sleepy during daytime?: No Has anyone observed you stop breathing during sleep?: No History of Hypertension (for STOP score): No STOP Results: Negative Medical Utilization Medical Devices Do you use a peak flow meter at home?: No Do you use a spacer device with your inhalers?: No Medical Utilization Number of hospital visits in the last year?: 1 Number of emergency room visits in the last year?: 1 Do you see your physician on a regular schedule?: Yes How often?: 4 times a year Advanced Directives Advanced Directives Power of Examination Scorer: Yes Living Will: No Advance Directives Information Provided: No Advance Directives on File: No DNR Order?:: No Past Medical History Covid-19 Screening Physicial Symptoms Other Clinical Concerns Exposure Risk Pertinent Comorbidities 65 years or older:: Yes Has a chronic lung disease or moderate to severe asthma:: Yes Medical History Medical History Atherosclerosis of coronary artery of [place] heart without angina pectoris Osteoporosis PVD (peripheral vascular disease) Anemia Depression Thyroid nodule Obstructive sleep apnea COPD (chronic obstructive pulmonary disease) Erectile dysfunction Seizure disorder Lung nodule Hyperlipidemia Surgical History Surgical History History of left heart catheterization (09/15/18) History of tonsillectomy History of appendectomy Significant Family History Family History Father Kidney disease Heart disease CHF Sister Diabetes Mother Asthma Dementia Social History Smoking History Smoking Status: Former smoker Years Smokin Packs Smoked per Day: 0.75 (stopped 4 weeks ago) Alcohol Use Alcohol Usage: Yes (socially) Occupation Occupation (List type of work in comments):: Retired Hobbies, Recreation, Social Activities Hobbies: Reading and Other (golf) Recreational Activities: I am able to engage in all my recreational activities Functioning ADL/IADL Current Ability Current Ability: Dependent: Self-Care (e.g.,grooming, dressing, & bathing), Dependent: Ambulation, Dependent: Transfer and Dependent: Household tasks (e.g., light meal prep, laundry, shopping) Pt Functioning Prior to Problem Prior Functioning: Self-Care (e.g.,grooming, dressing, & bathing): Dependent, Ambulation: Dependent, Transfer: Dependent and Household tasks (e.g., light meal prep, laundry, shopping): Dependent Social Environment Status Marital Status: Current Living Arrangements Living Environment:: Spouse Children How many children do you have?: 1 Do any of your children live nearby?: Yes Safety Do you feel safe in your surroundings?: Yes Assistance Do you need any assistance at home?: no Review of Systems Review of Systems Review of Systems Respiratory: Reports SOB upon Exertion, Appetite, Normal, Dizziness/Lightheadedness and Sleep, Normal; Denies Cough, Hemoptysis, Pleuritic Pain, SOB at Rest, Sputum production, Wheezing, Fatigue, PVD or Sexual changes Pain Is Patient Pain Free?: No Risk Factor Assessment Chief Complaint Chief Complaint: COPD GOLD III Severe 30% Vital Signs Pulse Rate: 51 Pulse Ox: 94 Blood Pressure: 122/70 Obesity Height: 6 ft Weight:: 175 lb Weight in Pounds: 175.0 lbs Body Mass Index (BMI): 23.7 Physical Activity Physical Inactivity: Reg Exercise 30 min/day Risk Stratification Risk Guidelines: Moderate Risk: Risk Factor for Smoking, Risk Factor for Diabetes, Risk Factor for Obesity, Risk Factor for Hypertension and Risk Factor for Sedentary Lifestyle and Highest Risk: Risk Factor for Dyslipidemia and Risk Factor for Depression For Smoking Smoking Risk Guidelines For Dyslipidemia Dyslipidemia Risk Guidelines For Diabetes Mellitus Diabetes Risk Guidelines For Obesity/Overweight Obesity/Overweight Risk Guidelines For Hypertension Hypertension Risk Guidelines For Sedentary Lifestyle Sedentary Lifestyle Risk Guidelines For Depression Depression Risk Guidelines Motivation Motivation to Participate On a scale of 1 to 10, how prepared are you to commit to attending program?: 8 What do you see as barriers to successfully being able to complete the program?: nothing What do you see as the benefits of succesfully completing the program? In other words, what do you hope to get out of participating in the program?: breath better Are there issues you are dealing with that will interfere with completing the program?: no Do you have a spouse or signficant other, family or friends who will help support you to complete the program?: yes Diagnostic Data Review Pulmonary Function Test FEV1:: 48 FVC:: 76 FEV1/FVC%:: 43 Gold Classification: GOLD class III(severe COPD)with FEV1/FVC<70, 30%</=FEV1< 50% predicted
--- NOTE | 2024-06-19 10:10 | PCM.PR.TP ---
General Information2 General Information Admitting Diagnosis: COPD GOLD III Severe 30% Secondary Diagnosis: acute hypoxic respiratory failure Gold Classification:: GOLD 3: Severe Personal Learning Style/Barriers Personal Learning Style:: Audio/Visual Barriers to Learning: None Stage of change r/t lifestyle modifications: Contemplation Education/Goals [place] Patient Goals: Increase muscle strength: Initial Assessment, Experience less dyspnea: Initial Assessment, Improve energy level: Initial Assessment and Improve my quality of life: Initial Assessment Exercise - Initial Assessment Visit Date of Eval: 06/19/24 (initial eval ) Problem/Goals Goals:: TX: 2-3/wk for 18 weeks [36 sessions] Functional Capacity Test Number of feet walked: 1,267 Lowest SPO2 %: 96 (room air) Physician Prescribed Exercise Modalities: Treadmill, Rower, [employer] AD-7, SciFit Stepper, [employer] Pro-II Ergometer and SwipelyFit Lateral [place] Frequency (days/week): 3 Duration (Minutes):: 30-45 Intensity: 60-80% of age predicted maximum heart rate reserve Current METSs:: 2.0 Target HR:: 109 (94-109) Resting Blood Pressure: 122/70 Minimum SpO2 with exercise: 94 (on 4 liters) EKG Type: NSR Plan Plan and Plan to Review:: Benefits of exercise, Core components of exercise, How to measure dyspnea level, How to monitor dyspnea level, Exercise intensity, Exercise safety guideline, Home exercise guidelines and Tim: 3-4/11-13 Home Exercise Mode: Walking Nutrition/Wt Mgmt - Initial Visit Date of Eval: 06/19/24 (initial eval ) Weight Management Admit Height:: 6 ft Admit Weight:: 175 lb Admit BMI:: 23.7 Intervention Will attend diet classes:: Yes Intervention/Plan: Instruct on ideal BMI & set weight loss goal w/patient, Assist pt to ID & incorporate diet changes for weight loss by S9, Refer to Structured Weight Loss program as appropriate, Encourage goal of using 250-300dcal per session for weight loss and Other additional plan/interventions Plan Nutrition Plan: Yes: Review BMI or WC & identify target wt & strategies for wt control, Yes: Nutrition education class:, Yes: Medication education class [Prednisone]:, Yes: Weight control education class:, Yes: Education re: Need for ongoing weight monitoring, Yes: Food diary: and Yes: Physical activity log: Nutrition/Wt Mgmt - 30-Day Weight Management Height: 6 ft Weight:: 175 lb BMI: 23.7 Nutrition/Wt Mgmt - 60-Day Weight Management Height: 6 ft Weight:: 175 lb BMI: 23.7 Nutrition/Wt Mgmt - 90-Day Weight Management Height: 6 ft Weight:: 175 lb BMI: 23.7 Nutrition/Wt Mgmt - Final Weight Management Height: 6 ft Weight:: 175 lb BMI: 23.7 Psychosocial - Initial Assess Visit Date of Eval: 06/19/24 (initial eval ) Problems/Goals History of Emotional Disorders: Depression Psychosocial Goals: 1. Patient is free from overwhelming symtoms of depression (or anxiety, 2. Identifies personal stressors & states the strategies for managing, 3. Identifies activities to decrease isolation and/or symptoms of, 4. Improved psychosocial coping skills., 5. Verbalizes coping strategies., 6. Adequate treatment of depression. and 7. Improved Q.O.L. Psychosocial Test Tool Used:: Pulmonary QOL and PHQ-9 Questionnaire Referral to Behavioral Health PS - Interventions: Yes: Attend Stress Management Classes Intervention/Plan: See List Interventions/Plan:: Assess stressors,coping strategies & signs of derpression on admission, Instruct/assist pt to develop coping & personal stress Mgt strategies, Refer to Behavioral Health if appropriate, Refer to Physician if appropriate, Instruct patient to recognize signs & symptoms of depression and Instruct patient to recog Psychosocial - 30-Day Problems/Goals History of Emotional Disorders: Depression Psychosocial Goals: 1. Patient is free from overwhelming symtoms of depression (or anxiety, 2. Identifies personal stressors & states the strategies for managing, 3. Identifies activities to decrease isolation and/or symptoms of, 4. Improved psychosocial coping skills., 5. Verbalizes coping strategies., 6. Adequate treatment of depression. and 7. Improved Q.O.L. Psychosocial Test Tool Used:: Pulmonary QOL and PHQ-9 Questionnaire Referral to Behavioral Health PS - Interventions: Yes: Attend Stress Management Classes Plan Interventions/Plan:: Assess stressors,coping strategies & signs of derpression on admission, Instruct/assist pt to develop coping & personal stress Mgt strategies, Refer to Behavioral Health if appropriate, Refer to Physician if appropriate, Instruct patient to recognize signs & symptoms of depression and Instruct patient to recog Psychosocial - 60-Day Problems/Goals History of Emotional Disorders: Depression Psychosocial Goals: 1. Patient is free from overwhelming symtoms of depression (or anxiety, 2. Identifies personal stressors & states the strategies for managing, 3. Identifies activities to decrease isolation and/or symptoms of, 4. Improved psychosocial coping skills., 5. Verbalizes coping strategies., 6. Adequate treatment of depression. and 7. Improved Q.O.L. Psychosocial Test Tool Used:: Pulmonary QOL and PHQ-9 Questionnaire Referral to Behavioral Health PS - Interventions: Yes: Attend Stress Management Classes Plan Interventions/Plan:: Assess stressors,coping strategies & signs of derpression on admission, Instruct/assist pt to develop coping & personal stress Mgt strategies, Refer to Behavioral Health if appropriate, Refer to Physician if appropriate, Instruct patient to recognize signs & symptoms of depression and Instruct patient to recog Psychosocial - 90-Day Problems/Goals History of Emotional Disorders: Depression Psychosocial Goals: 1. Patient is free from overwhelming symtoms of depression (or anxiety, 2. Identifies personal stressors & states the strategies for managing, 3. Identifies activities to decrease isolation and/or symptoms of, 4. Improved psychosocial coping skills., 5. Verbalizes coping strategies., 6. Adequate treatment of depression. and 7. Improved Q.O.L. Psychosocial Test Tool Used:: Pulmonary QOL and PHQ-9 Questionnaire Referral to Behavioral Health PS - Interventions: Yes: Attend Stress Management Classes Plan Interventions/Plan:: Assess stressors,coping strategies & signs of derpression on admission, Instruct/assist pt to develop coping & personal stress Mgt strategies, Refer to Behavioral Health if appropriate, Refer to Physician if appropriate, Instruct patient to recognize signs & symptoms of depression and Instruct patient to recog Psychosocial - Final Assess Problems/Goals History of Emotional Disorders: Depression Psychosocial Goals: 1. Patient is free from overwhelming symtoms of depression (or anxiety, 2. Identifies personal stressors & states the strategies for managing, 3. Identifies activities to decrease isolation and/or symptoms of, 4. Improved psychosocial coping skills., 5. Verbalizes coping strategies., 6. Adequate treatment of depression. and 7. Improved Q.O.L. Psychosocial Test Tool Used:: Pulmonary QOL and PHQ-9 Questionnaire Referral to Behavioral Health PS - Interventions: Yes: Attend Stress Management Classes Plan Interventions/Plan:: Assess stressors,coping strategies & signs of derpression on admission, Instruct/assist pt to develop coping & personal stress Mgt strategies, Refer to Behavioral Health if appropriate, Refer to Physician if appropriate, Instruct patient to recognize signs & symptoms of depression and Instruct patient to recog Oxygen & Oxygen Titration Init Visit Date of Eval: 06/19/24 (initial eval ) Initial Assessment Oxygen on Admission: Continuous home use SpO2:: 94 (on 4 liters) Patient Reports:: No cough and Hospitalized in the past 12 months [list how many times] (1) Goal Oxygen & Oxygen Tritration Goals: Uses O2 as Rx'd/safely Plans Plan: Monitor SpO2 rest & with exercise, Recommend appropriate FiO2 to Pt/MD, Assist to contact DME for O2, Train appropriate O2 use at rest, Train appropriate O2 use with exercise and Train O2 safety & systems Reviewed prescribed medications:: Purpose, Schedule, Side effects and Importance of compliance Instruct correct technique/timing & care:: MDI, DPI, Nebulizer and Return demo use of inhaler Bronchial Hygiene Plan: Controlled cough, CPT, Vibratory PEP device, VEST, Role of exercise in secretion clearance, NS Nasal spray, Hydration, Hand hygiene, Evaluate sputum, When to call MD, Signs/symptoms to report:, Influenza/Pneumovax vaccines and Cleaning of respiratory equipment Oxygen & Oxygen Titration 30D Reassessment SpO2:: 94 (on 4 liters) Oxygen & Oxygen Titration 60D Reassessment SpO2:: 94 (on 4 liters) Oxygen & Oxygen Titration 90D Reassessment SpO2:: 94 (on 4 liters) Oxygen & Oxygen Titration ERASMO Reassessment SpO2:: 94 (on 4 liters) Core Components - Initial Visit Date of Eval: 06/19/24 (initial eval ) Exacerbation Mgmt & Airway Clearance Patient Reports:: No cough and Hospitalized in the past 12 months [list how many times] (1) Plan: Monitor SpO2 rest & with exercise, Recommend appropriate FiO2 to Pt/MD, Assist to contact DME for O2, Train appropriate O2 use at rest, Train appropriate O2 use with exercise and Train O2 safety & systems Instruct correct technique/timing & care:: MDI, DPI, Nebulizer and Return demo use of inhaler Bronchial Hygiene Plan: Controlled cough, CPT, Vibratory PEP device, VEST, Role of exercise in secretion clearance, NS Nasal spray, Hydration, Hand hygiene, Evaluate sputum, When to call MD, Signs/symptoms to report:, Influenza/Pneumovax vaccines and Cleaning of respiratory equipment Medication Reviewed prescribed medications:: Purpose, Schedule, Side effects and Importance of compliance Diabetes Will attend diet classes:: Yes Patient Health Questionnaire PHQ-9 Screening Initial Assessment: 1. Little interest or pleasure in doing things: More than half the days 2. Feeling down, depressed, or hopeless: Several days 3. Trouble falling or staying asleep, or sleeping too much: Not at all 4. Feeling tired or having little energy: Several days 5. Poor appetite or overeating: Several days 6. Feeling bad about yourself -- or that you are a failure or have let yourself or your family down: Several days 7. Trouble concentrating on things, such as reading the newspaper or watching television: Not at all 8. Moving or speaking so slowly that other people could have noticed. Or the opposite - being so fidgety or restless that you have been moving around a lot more than usual: Not at all 9. Thoughts that you would be better off , or of hurting yourself in some way: Not at all How difficult have these problems made it for you to do your work, take care of things at home, or get along with other people?: Somewhat difficult Total Score: 6 Knowledge Questionaire (BCKQ) Information Information: [place] COPD Knowledge Questionnaire (BCKQ) This questionnaire is designed to find out what you know about your lung problem. It should be completed without help form anyone else. This usually takes between 10 and 20 minutes. Your answers will help us to find out what information you need to help you to understand and manage your lung condition. [place] the [place] which you think is the correct answer. Questions 1. In COPD: b. COPD can only be confirmed by breathing tests: Don't know c. In COPD ther is usually gradual worsening over time: Don't know d. In COPD oxygen levels in the blood are always low: Don't know e. COPD is usually in people less than 40 years old: Don't know 2. COPD: [place] than 80% of COPD cases are caused by cigarette smoking: Don't know b. COPD can be caused by occupational dust exposure: Don't know c. Longstanding asthma can develop into COPD: Don't know d. COPD is commonly an inherited disease: Don't know e. Women are less vunerable to the effects of cigarette than men: Don't know 3. The following symptoms are Common in COPD: a. Swelling of the ankles is common in COPD:: Don't know b. Fatigue [tiredness] is common in COPD: Don't know c. Wheezing is common in COPD: Don't know d. Crushing chest pain is common in COPD: Don't know e. Rapid weight loss is common in COPD: Don't know 4. Breathlessness in COPD: a. Severe breathlessness prevents travel by air: Don't know b. Breathlessness can be worsened by eating large meals: Don't know c. Breathlessness means that your oxygen levels are low: Don't know d. Breathlessness is a normal response to exercise: Don't know e. Breathlessness is primarily caused by a narrowing of the bronchial tubes: Don't know 5. Phlegm (sputum): a. Coughing phlegm is a common symptom in COPD: True b. Clearing phlegm is more difficult if you get dehydrated: True c. Bronchodilator inhalers can help clear phlegm: True d. Phlegm causes harm if swallowed: Don't know e. Clearing phlegm can be assisted by breathing exercises: True 6. Chest infections / exacerbations: a. Chest infections often cause coughing of blood: False b. Chest infection phlegm usually becomes coloured (ylw/grn): True cExerbations (episodes of worsening) can occur in the absence of chest infection: True d. Chest infections are always accompanied by a high temperature: False e. Steroid tablets should be taken whenever there is an exacerbation: True 7. Excercise in COPD: aWalking excercises better than breathing to improve fitness: True b. Exercise should be avoided as it strains the lungs: False c. Exercise can help maintain your bone density: True d. Exercise helps relieve depression: True e. Exercise should be stopped if it makes you breathless: True 8. Smoking: a. Stopping smoking will reduce the risk of heart disease: True b. Stopping smoking will slow down further lung damage: True c. Stopping smoking is pointless as the damage is done: False d.Stopping smoking usually results in improved lung function: True eNicotine replacement therapy only available on prescription: False 9. Vaccination: a. A flu jab is recommended every year: True b. You can get flu from having a flu jab: False c. You can only have a flu jab if you are 65 or over: False d. A pneumonia jab protects against all forms of pneumonia: False e.You can have a pneumonia jab and a flu job on the same day: False 10. Inhaled bronchodilators: a. Bronchodilators act quickly (within 10 minutes): False b. Both short & long acting bronchodilators can be taken on the same day: True c. Spacers (volumatic,nebuhaler,serochamber)should be dried w/atowel after washing: Don't know d. A spacer device increases the medication to the lungs: Don't know e. Tremor may be a side effect of bronchodilators: Don't know 11. Antibiotic treatment in COPD: a. To be effective, the course should last at least 10 days: True b. Excessive use of antibiotics can cause resistant bacteria (germs): True c. Antibiotics will clear all chest infections: False d. Antibiotic treatment is necessary for an exacerbation (worsening) however mild: Don't know e. Seek advice if antibiotics cause severe diarrhoea: True 12. Steroid tablets given for COPD (eg Prednisolone): a. Steroid tablets help strengthen muscles: True b. Steroid tablets should be avoided if there is a chest infection: False c. The risk of long-term side effects due to steroids is less w/short courses then w/continous treatment: True dIndigestion is common side effect from using steroid tablet: Don't know e. Steroid tablets can increase your appetite: True 13. Inhaled steroids (brown, red or orange): a. Inhaled steroids should be stopped if you are given steroid tablets: Don't know bSteroid inhalers can be used for rapid relief breathlessnes: Don't know c. Spacer devices reduce the risk of getting thrush in the mouth: Don't know d.Steroid inhaler should be taken before your bronchodilator: Don't know e. Inhaled steroids improve lung function in COPD: Don't know COPD Assessment Test [CAT] Questions Never cough = 0, Cough all the time = 5: 2 No phlegm = 0, Chest full of phlegm = 5: 2 No chest tightness = 0, Chest very tight = 5: 3 No breathless w/exertion = 0, Very breathless w/exertion = 5: 4 No limitations w/activity = 0, Very limited w/activity = 5: 4 Confident leaving home = 0, Not at all confident = 5: 2 Sleep soundly = 0, Don't sleep soundly = 5: 0 Lots of energy = 0, No energy at all = 5: 3 Total CAT score:: 20 Self-Efficacy 6-Item Scale Initial Assessment: We would like to know how confident you are in doing certain activities. Please select your confidence level for: Fatigue Select Number: 4 Physical Discomfort or Pain Select Number: 6 Emotional Distress Select Number: 5 Other Symptoms or Health Problems Select Number: 4 Different Tasks and Activities Select Number: 5 Medication Select Number: 6 Total Score:: 5 Nutrition Survey Nutrition Survey Instructions Scoring Instructions Nutrition Survey Initial: Have you lost >10 lbs over the past 2 months without trying?: Yes Are you following a special diet at home for diabetes, low fat, or low salt?: No Are you interested in meeting with a dietitian for help understanding your diet?: Yes Do you eat less than 3 meals a day?: Yes Do you eat fatty meats (romero, sausage, ribs, etc), fried foods, desserts, large amounts of salad dressings, margarine, butter, or cheese most days?: Yes Do you have food allergies? [Enter types in comment field]: No Do you eat in restaurants more than 3 times a week?: Yes Do you season food with salt, seasoning salt, or garlic salt?: Yes Do you used canned, boxed, frozen meals, or soups, seasoning packets?: Yes Total Score:: 7
[2024-06-19 10:25] VITALS: PULSE 51; O2SAT 94
[2024-06-19 10:27] VITALS: BP 122/70
[2024-06-19 10:29] VITALS: BP 122/70
[2024-06-19 11:17] VITALS: O2SAT 94; BMI 23.7
== END | disposition home or self-care (01) ==
PROVIDERS: PCP Internal Medicine; Referring Provider Internal Medicine; Visit Provider Internal Medicine
DX: J96.01 Acute respiratory failure with hypoxia (principal); J44.9 Chronic obstructive pulmonary disease, unspecified

== ENCOUNTER 2024-06-27 10:00 | Outpatient (RCR) | payer MEDICARE, OTHER, SELFPAY ==
[2024-06-19 11:17] VITALS: BMI 23.7
== END 2024-06-28 23:59 ==
LOC: PR 10:00
PROVIDERS: PCP Internal Medicine; Referring Provider Internal Medicine; Visit Provider Internal Medicine
DX: J44.9 Chronic obstructive pulmonary disease, unspecified (principal)
CPT/HCPCS: 97150; 94626

== ENCOUNTER 2024-07-25 10:00 | Outpatient (RCR) | payer MEDICARE, OTHER, SELFPAY ==
[2024-06-19 11:17] VITALS: BMI 23.7
--- NOTE | 2024-07-20 08:42 | PR.ITP_ITS ---
Exercise - Initial Assessment Visit Session Number:: 11 Physician Prescribed Exercise Modalities: Treadmill, SciFit Stepper and SciFit Pro-II Ergometer Current METSs:: 3.5 Target HR:: 109 (94-109) Current RPD:: 3 Maximum Exercise HR:: 120 Resting Blood Pressure: 110/60 Maximum Exercise Blood Pressure: 152/72 Minimum SpO2 with exercise: 87 EKG Type: SB to ST with ocass PVC Nutrition/Wt Mgmt - Initial Visit Session Number:: 11 Weight Management Admit Height:: 6 ft Admit Weight:: 185 lb Admit BMI:: 25.0 Nutrition/Wt Mgmt - 30-Day Visit Date of Eval: 07/20/24 Session Number:: 11 Weight Management Height: 6 ft Weight:: 185 lb BMI: 25.0 Weight Goals Progress:: Goal met (pt is at a healthy weight) Nutrition/Wt Mgmt - 60-Day Visit Session Number:: 11 Weight Management Height: 6 ft Weight:: 185 lb BMI: 25.0 Nutrition/Wt Mgmt - 90-Day Visit Session Number:: 11 Weight Management Height: 6 ft Weight:: 185 lb BMI: 25.0 Nutrition/Wt Mgmt - Final Visit Session Number:: 11 Weight Management Height: 6 ft Weight:: 185 lb BMI: 25.0 Psychosocial - Initial Assess Visit Session Number:: 11 Problems/Goals History of Emotional Disorders: Depression Psychosocial Goals: 1. Patient is free from overwhelming symtoms of depression (or anxiety, 2. Identifies personal stressors & states the strategies for managing, 3. Identifies activities to decrease isolation and/or symptoms of, 4. Improved psychosocial coping skills., 5. Verbalizes coping strategies., 6. Adequate treatment of depression. and 7. Improved Q.O.L. Psychosocial Test Tool Used:: Pulmonary QOL and PHQ-9 Questionnaire Referral to Behavioral Health PS - Interventions: Yes: Attend Stress Management Classes Intervention/Plan: See List Interventions/Plan:: Assess stressors,coping strategies & signs of derpression on admission, Instruct/assist pt to develop coping & personal stress Mgt strategies, Refer to Behavioral Health if appropriate, Refer to Physician if appropriate, Instruct patient to recognize signs & symptoms of depression, Instruct patient to recog and Other additional plan/intervention Comments:: Pt is scheduled to attend stress management class. Psychosocial - 30-Day Visit Date of Eval: 07/20/24 Session Number:: 11 Problems/Goals History of Emotional Disorders: Depression Psychosocial Goals: 1. Patient is free from overwhelming symtoms of depression (or anxiety, 2. Identifies personal stressors & states the strategies for managing, 3. Identifies activities to decrease isolation and/or symptoms of, 4. Improved psychosocial coping skills., 5. Verbalizes coping strategies., 6. Adequate treatment of depression. and 7. Improved Q.O.L. Psychosocial Test Tool Used:: Pulmonary QOL and PHQ-9 Questionnaire Referral to Behavioral Health PS - Interventions: Yes: Attend Stress Management Classes Plan Interventions/Plan:: Assess stressors,coping strategies & signs of derpression on admission, Instruct/assist pt to develop coping & personal stress Mgt strategies, Refer to Behavioral Health if appropriate, Refer to Physician if appropriate, Instruct patient to recognize signs & symptoms of depression, Instruct patient to recog and Other additional plan/intervention Comments:: Pt is scheduled to attend stress management class. Psychosocial - 60-Day Visit Session Number:: 11 Problems/Goals History of Emotional Disorders: Depression Psychosocial Goals: 1. Patient is free from overwhelming symtoms of depression (or anxiety, 2. Identifies personal stressors & states the strategies for managing, 3. Identifies activities to decrease isolation and/or symptoms of, 4. Improved psychosocial coping skills., 5. Verbalizes coping strategies., 6. Adequate treatment of depression. and 7. Improved Q.O.L. Psychosocial Test Tool Used:: Pulmonary QOL and PHQ-9 Questionnaire Referral to Behavioral Health PS - Interventions: Yes: Attend Stress Management Classes Plan Interventions/Plan:: Assess stressors,coping strategies & signs of derpression on admission, Instruct/assist pt to develop coping & personal stress Mgt strategies, Refer to Behavioral Health if appropriate, Refer to Physician if appropriate, Instruct patient to recognize signs & symptoms of depression, Instruct patient to recog and Other additional plan/intervention Comments:: Pt is scheduled to attend stress management class. Psychosocial - 90-Day Visit Session Number:: 11 Problems/Goals History of Emotional Disorders: Depression Psychosocial Goals: 1. Patient is free from overwhelming symtoms of depression (or anxiety, 2. Identifies personal stressors & states the strategies for managing, 3. Identifies activities to decrease isolation and/or symptoms of, 4. Improved psychosocial coping skills., 5. Verbalizes coping strategies., 6. Adequate treatment of depression. and 7. Improved Q.O.L. Psychosocial Test Tool Used:: Pulmonary QOL and PHQ-9 Questionnaire Referral to Behavioral Health PS - Interventions: Yes: Attend Stress Management Classes Plan Interventions/Plan:: Assess stressors,coping strategies & signs of derpression on admission, Instruct/assist pt to develop coping & personal stress Mgt strategies, Refer to Behavioral Health if appropriate, Refer to Physician if appropriate, Instruct patient to recognize signs & symptoms of depression, Instruct patient to recog and Other additional plan/intervention Comments:: Pt is scheduled to attend stress management class. Psychosocial - Final Assess Visit Session Number:: 11 Problems/Goals History of Emotional Disorders: Depression Psychosocial Goals: 1. Patient is free from overwhelming symtoms of depression (or anxiety, 2. Identifies personal stressors & states the strategies for managing, 3. Identifies activities to decrease isolation and/or symptoms of, 4. Improved psychosocial coping skills., 5. Verbalizes coping strategies., 6. Adequate treatment of depression. and 7. Improved Q.O.L. Psychosocial Test Tool Used:: Pulmonary QOL and PHQ-9 Questionnaire Referral to Behavioral Health PS - Interventions: Yes: Attend Stress Management Classes Plan Interventions/Plan:: Assess stressors,coping strategies & signs of derpression on admission, Instruct/assist pt to develop coping & personal stress Mgt strategies, Refer to Behavioral Health if appropriate, Refer to Physician if appropriate, Instruct patient to recognize signs & symptoms of depression, Instruct patient to recog and Other additional plan/intervention Comments:: Pt is scheduled to attend stress management class. Oxygen & Oxygen Titration Init Visit Session Number:: 11 Initial Assessment SpO2:: 87 Oxygen & Oxygen Titration 30D Visit Date of Eval: 07/20/24 Session Number:: 11 Reassessment Reassessment- 30 Days: Demonstrate knowledge of O2 Rx at rest & w/exercise, Using O2 as Rx'd, Has home O2 as Rx'd and Uses port O2 as Rx'd SpO2:: 87 Oxygen & Oxygen Titration 60D Visit Date of Eval: 07/20/24 Session Number:: 11 Reassessment SpO2:: 87 Oxygen & Oxygen Titration 90D Visit Date of Eval: 07/20/24 Session Number:: 11 Reassessment SpO2:: 87 Oxygen & Oxygen Titration ERASMO Visit Date of Eval: 07/20/24 Session Number:: 11 Reassessment SpO2:: 87 Core Components - Initial Visit Session Number:: 11 Hypertension BP: 110/60 [place] [employer] Hypertension Guidelines Blood Pressure: 152/72 Outcomes/Goals: Able to verbalize/achieve optimal blood pressure <130/80, Incorporates diet changes & exercise for blood pressure control by DC and Other additional outcomes/goals Tobacco - Initial Assessment Tobacco Program Goals Stages of Change:: Maintenance Do you have family support?: Yes Tobacco Use: Non-smoker (pt has stopped smoking) Gave Education Materials For:: Tobacco Triggers, Pulmonary Disease, Risk Factors, Breathing Techniques, Medical Compliance, Pulmonary A&P, Exacerbation Signs & Symptoms and Stress & Relaxation Diabetes Diabetes:: No Core Components - 30 DAYS Visit Date of Eval: 07/20/24 Session Number:: 11 Hypertension Resting Blood Pressure:: 110/60 [place] [employer] Hypertension Guidelines Peak Exercise Blood Pressure:: 152/72 Change in medication: No Outcomes/Goals: Able to verbalize/achieve optimal blood pressure <130/80, Incorporates diet changes & exercise for blood pressure control by DC and Other additional outcomes/goals Interventions/plan: Instruct on optimal blood pressure, hypertension & medications, Instruct on effects of sodium, alcohol, stress, exercise &hypertension and Other additional plan/interventions 30 day Reassessments:: Met Reassessment Notes & Comments:: Pt's BP's have been within AHA's normal limits Tobacco - 30-Day Tobacco Program Goals Stages of Change:: Maintenance Learning Barriers: Participates in education Do you have family support?: Yes Tobacco Use: Non-smoker (pt has stopped smoking) Gave Education Materials For:: Tobacco Triggers, Pulmonary Disease, Risk Fact ors, Breathing Techniques, Medical Compliance, Pulmonary A&P, Exacerbation Signs & Symptoms and Stress & Relaxation 30-day Reassessments:: Met Reassessment Notes & Comments:: Pt has stopped smoking Exacerbation Mgmt & Airway Clearance Reassessment: Demonstrates knowledge of O2 Rx at rest, Demonstrates knowledge of O2 Rx with exercise, Using O2 as prescribed, Has home O2 as prescribed and Uses port O2 as prescribed Bronchial Hygiene Plan: Yes: Pt demonstrates correctly for effective cough, Yes: Pt demo correct for CPT, Yes: Pt demo correct for device, Yes: Pt demo correct for NS nasal spray, Yes: Pt demo correct for sputum management, Yes: Pt demo correct for improved hydration, Yes: Pt demo correct for hand hygiene, Yes: Pt demo correct for evalute sputum, Yes: Pt demo correct for verbalize when to call MD and Yes: Pt demo correct for cleaning of respiratory equipment Medication Medication list reviewed:: Yes Taking medications 100% of the time:: Met Medication reassessment: Yes: Pt demonstrates correct technique timing for MDI, Yes: Pt demonstrates correct technique timing for DPI, Yes: Pt demonstrates correct technique timing for NEB and Yes: Pt demonstrates correct technique timing for spacer Diabetes Diabetes:: No Core Components - 60 DAYS Visit Session Number:: 11 Hypertension Resting Blood Pressure:: 110/60 [place] [employer] Hypertension Guidelines Peak Exercise Blood Pressure:: 152/72 Change in medication: No Outcomes/Goals: Able to verbalize/achieve optimal blood pressure <130/80, Incorporates diet changes & exercise for blood pressure control by DC and Other additional outcomes/goals Interventions/plan: Instruct on optimal blood pressure, hypertension & medications, Instruct on effects of sodium, alcohol, stress, exercise &hypertension and Other additional plan/interventions 60 day Reassessments:: Met Reassessment Notes & Comments:: Pt's BP's have been within AHA's normal limits Tobacco - 60-Day Tobacco Program Goals Stages of Change:: Maintenance Learning Barriers: Participates in education Do you have family support?: Yes Tobacco Use: Non-smoker (pt has stopped smoking) Gave Education Materials For:: Tobacco Triggers, Pulmonary Disease, Risk Factors, Breathing Techniques, Medical Compliance, Pulmonary A&P, Exacerbation Signs & Symptoms and Stress & Relaxation 60-day Reassessments:: Met Reassessment Notes & Comments:: Pt has stopped smoking Exacerbation Mgmt & Airway Clearance Reassessment: Demonstrates knowledge of O2 Rx at rest, Demonstrates knowledge of O2 Rx with exercise, Using O2 as prescribed, Has home O2 as prescribed and Uses port O2 as prescribed Bronchial Hygiene Plan: Yes: Pt demonstrates correctly for effective cough, Yes: Pt demo correct for CPT, Yes: Pt demo correct for device, Yes: Pt demo correct for NS nasal spray, Yes: Pt demo correct for sputum management, Yes: Pt demo correct for improved hydration, Yes: Pt demo correct for hand hygiene, Yes: Pt demo correct for evalute sputum, Yes: Pt demo correct for verbalize when to call MD and Yes: Pt demo correct for cleaning of respiratory equipment Medication Taking medications 100% of the time:: Met Medication reassessment: Yes: Pt demonstrates correct technique timing for MDI, Yes: Pt demonstrates correct technique timing for DPI, Yes: Pt demonstrates correct technique timing for NEB and Yes: Pt demonstrates correct technique timing for spacer Diabetes Diabetes:: No Core Components - 90 DAYS Visit Session Number:: 11 Hypertension Resting Blood Pressure:: 110/60 [place] [employer] Hypertension Guidelines Peak Exercise Blood Pressure:: 152/72 Outcomes/Goals: Able to verbalize/achieve optimal blood pressure <130/80, Incorporates diet changes & exercise for blood pressure control by DC and Other additional outcomes/goals Interventions/plan: Instruct on optimal blood pressure, hypertension & medications, Instruct on effects of sodium, alcohol, stress, exercise &hypertension and Other additional plan/interventions 90 day Reassessments:: Met Reassessment Notes & Comments:: Pt's BP's have been within AHA's normal limits Tobacco - 90-Day Tobacco Program Goals Stages of Change:: Maintenance Learning Barriers: Participates in education Do you have family support?: Yes Tobacco Use: Non-smoker (pt has stopped smoking) Gave Education Materials For:: Tobacco Triggers, Pulmonary Disease, Risk Factors, Breathing Techniques, Medical Compliance, Pulmonary A&P, Exacerbation Signs & Symptoms and Stress & Relaxation 90-day Reassessments:: Met Reassessment Notes & Comments:: Pt has stopped smoking Exacerbation Mgmt & Airway Clearance Bronchial Hygiene Plan: Yes: Pt demonstrates correctly for effective cough, Yes: Pt demo correct for CPT, Yes: Pt demo correct for device, Yes: Pt demo correct for NS nasal spray, Yes: Pt demo correct for sputum management, Yes: Pt demo correct for improved hydration, Yes: Pt demo correct for hand hygiene, Yes: Pt demo correct for evalute sputum, Yes: Pt demo correct for verbalize when to call MD and Yes: Pt demo correct for cleaning of respiratory equipment Medication Medication reassessment: Yes: Pt demonstrates correct technique timing for MDI, Yes: Pt demonstrates correct technique timing for DPI, Yes: Pt demonstrates correct technique timing for NEB and Yes: Pt demonstrates correct technique timing for spacer Diabetes Diabetes:: No Core Components - Final Visit Session Number:: 11 Hypertension Resting Blood Pressure:: 110/60 [place] [employer] Hypertension Guidelines Peak Exercise Blood Pressure:: 152/72 Outcomes/Goals: Able to verbalize/achieve optimal blood pressure <130/80, Incorporates diet changes & exercise for blood pressure control by DC and Other additional outcomes/goals Tobacco - Final Tobacco Program Goals Stages of Change:: Maintenance Learning Barriers: Participates in education Do you have family support?: Yes Tobacco Use: Non-smoker (pt has stopped smoking) Exacerbation Mgmt & Airway Clearance Bronchial Hygiene Plan: Yes: Pt demonstrates correctly for effective cough, Yes: Pt demo correct for CPT, Yes: Pt demo correct for device, Yes: Pt demo correct for NS nasal spray, Yes: Pt demo correct for sputum management, Yes: Pt demo correct for improved hydration, Yes: Pt demo correct for hand hygiene, Yes: Pt demo correct for evalute sputum, Yes: Pt demo correct for verbalize when to call MD and Yes: Pt demo correct for cleaning of respiratory equipment Medication Medication reassessment: Yes: Pt demonstrates correct technique timing for MDI, Yes: Pt demonstrates correct technique timing for DPI, Yes: Pt demonstrates correct technique timing for NEB and Yes: Pt demonstrates correct technique timing for spacer Diabetes Diabetes:: No Patient Health Questionnaire PHQ-9 Screening 30-Day Re-eval Assessment: 1. Little interest or pleasure in doing things: More than half the days 2. Feeling down, depressed, or hopeless: Several days 3. Trouble falling or staying asleep, or sleeping too much: Not at all 4. Feeling tired or having little energy: Several days 5. Poor appetite or overeating: Several days 6. Feeling bad about yourself -- or that you are a failure or have let yourself or your family down: Several days 7. Trouble concentrating on things, such as reading the newspaper or watching television: Not at all 8. Moving or speaking so slowly that other people could have noticed. Or the opposite - being so fidgety or restless that you have been moving around a lot more than usual: Not at all 9. Thoughts that you would be better off , or of hurting yourself in some way: Not at all How difficult have these problems made it for you to do your work, take care of things at home, or get along with other people?: Somewhat difficult Total Score: 6 Knowledge Questionaire (BCKQ) Information Information: [place] COPD Knowledge Questionnaire (BCKQ) This questionnaire is designed to find out what you know about your lung problem. It should be completed without help form anyone else. This usually takes between 10 and 20 minutes. Your answers will help us to find out what information you need to help you to understand and manage your lung condition. Francis the [place] which you think is the correct answer. Self-Efficacy 6-Item Scale 30-Day Re-eval Assessment: We would like to know how confident you are in doing certain activities. Please select your confidence level for: Fatigue Select Number: 4 Physical Discomfort or Pain Select Number: 6 Emotional Distress Select Number: 5 Other Symptoms or Health Problems Select Number: 4 Different Tasks and Activities Select Number: 5 Medication Select Number: 6 Total Score:: 5 Nutrition Survey Nutrition Survey Instructions Scoring Instructions
[2024-07-20 09:01] VITALS: BP 110/60; BP 152/72; O2SAT 87; BMI 25.0
== END 2024-07-28 23:59 ==
LOC: PR 10:00
PROVIDERS: PCP Internal Medicine; Referring Provider Internal Medicine; Visit Provider Internal Medicine
DX: J96.01 Acute respiratory failure with hypoxia (principal)
CPT/HCPCS: 97150; 94626

== ENCOUNTER → 2024-07-30 | Outpatient (CLI) | payer MEDICARE, OTHER, SELFPAY ==
[2024-07-20 09:01] VITALS: BMI 25.0
--- NOTE | 2024-07-30 10:39 | CT_ITS ---
STUDY: CT CHEST WITHOUT CONTRAST REASON FOR EXAM: Male, 73 years old. pulm nodule, due in 2023 -- pulm nodule, due in 2023 RADIATION DOSAGE (If Supplied By Facility): CTDIvol = ( 10.13 ) mGy, DLP = ( 399.83 ) mGycm TECHNIQUE: Transaxial imaging was performed without the administration of intravenous contrast material. Multiplanar coronal and sagittal images were reformatted. Individualized dose optimization techniques were used for this CT. COMPARISON: Comparison is made with prior study dated February 03, 2024. FINDINGS: CHEST There are emphysematous changes of the lungs with emphysematous blebs. Stable 1.3 cm calcified granuloma in the posteromedial aspect of the right upper lobe. There is no demonstrated pleural abnormality. There are calcifications of the coronary arteries. Normal mediastinum. Normal hilar regions. Normal unenhanced pulmonary arteries. There is atherosclerotic calcification of the aortic arch with tortuosity and elongation of the aortic arch and descending thoracic aorta. There are multi-level degenerative changes of the thoracic spine. Multiple intrahepatic and left renal cysts. Punctate calculus in the upper pole of the right kidney. CT/Chest without Contrast IMPRESSION: Calcified granuloma in the posteromedial aspect of the right upper lobe. Multiple hepatic cysts as well as left renal cyst. Nonobstructive punctate calculus in the right kidney. Electronically Signed: Charbel Rivera MD at 11:09 EST ,
== END | disposition home or self-care (01) ==
LOC: CT 10:38
PROVIDERS: PCP Internal Medicine; Referring Provider Internal Medicine; Visit Provider Internal Medicine
DX: R91.1 Solitary pulmonary nodule (principal)
CPT/HCPCS: 71250

== ENCOUNTER 2024-08-24 10:00 | Outpatient (RCR) | payer MEDICARE, OTHER, SELFPAY ==
[2024-07-20 09:01] VITALS: BMI 25.0
[2024-07-29 00:29] VITALS: BP 110/60; BP 152/72; BMI 25.0
--- NOTE | 2024-08-17 07:04 | PR.ITP_ITS ---
Exercise - Initial Assessment Visit Session Number:: 22 Physician Prescribed Exercise Modalities: Treadmill, SciFit Stepper and SciFit Pro-II Ergometer Target HR:: 109 (94-109) Current RPD:: 3 Maximum Exercise HR:: 112 Resting Blood Pressure: 110/54 Maximum Exercise Blood Pressure: 150/66 Minimum SpO2 with exercise: 87 EKG Type: NSR to ST with rare PAC's Nutrition/Wt Mgmt - Initial Visit Session Number:: 22 Weight Management Admit Height:: 6 ft Admit Weight:: 192 lb Admit BMI:: 26.0 Nutrition/Wt Mgmt - 30-Day Visit Date of Eval: 08/17/24 Session Number:: 22 Weight Management Height: 6 ft Weight:: 192 lb BMI: 26.0 Nutrition/Wt Mgmt - 60-Day Visit Date of Eval: 08/17/24 Session Number:: 22 Weight Management Height: 6 ft Weight:: 192 lb BMI: 26.0 Weight Goals Progress:: Progressing (Pt has attended nutrition class. Pt understands the benefits of a healthy low sodium diet. Pt encouraged to keep a food log. Will continue to monitor weight.) Nutrition/Wt Mgmt - 90-Day Visit Session Number:: 22 Weight Management Height: 6 ft Weight:: 192 lb BMI: 26.0 Weight Goals Progress:: Progressing (Pt has attended nutrition class. Pt understands the benefits of a healthy low sodium diet. Pt encouraged to keep a food log. Will continue to monitor weight.) Nutrition/Wt Mgmt - Final Visit Session Number:: 22 Weight Management Height: 6 ft Weight:: 192 lb BMI: 26.0 Psychosocial - Initial Assess Visit Session Number:: 22 Problems/Goals History of Emotional Disorders: Depression (pt has attended stress management class. Pt is doing well at this time.) Psychosocial Goals: 1. Patient is free from overwhelming symtoms of depression (or anxiety, 2. Identifies personal stressors & states the strategies for managing, 3. Identifies activities to decrease isolation and/or symptoms of, 4. Improved psychosocial coping skills., 5. Verbalizes coping strategies., 6. Adequate treatment of depression. and 7. Improved Q.O.L. Psychosocial Test Tool Used:: Pulmonary QOL and PHQ-9 Questionnaire Referred to MD for counseling:: No Referral to Behavioral Health PS - Interventions: Yes: Attend Stress Management Classes Intervention/Plan: See List Interventions/Plan:: Assess stressors,coping strategies & signs of derpression on admission, Instruct/assist pt to develop coping & personal stress Mgt strategies, Refer to Behavioral Health if appropriate, Refer to Physician if appropriate, Instruct patient to recognize signs & symptoms of depression, Instruct patient to recog and Other additional plan/intervention Psychosocial - 30-Day Visit Date of Eval: 08/17/24 Session Number:: 22 Problems/Goals History of Emotional Disorders: Depression (pt has attended stress management class. Pt is doing well at this time.) Psychosocial Goals: 1. Patient is free from overwhelming symtoms of depression (or anxiety, 2. Identifies personal stressors & states the strategies for managing, 3. Identifies activities to decrease isolation and/or symptoms of, 4. Improved psychosocial coping skills., 5. Verbalizes coping strategies., 6. Adequate treatment of depression. and 7. Improved Q.O.L. Psychosocial Test Tool Used:: Pulmonary QOL and PHQ-9 Questionnaire Referred to MD for counseling:: No Referral to Behavioral Health PS - Interventions: Yes: Attend Stress Management Classes Plan Interventions/Plan:: Assess stressors,coping strategies & signs of derpression on admission, Instruct/assist pt to develop coping & personal stress Mgt strategies, Refer to Behavioral Health if appropriate, Refer to Physician if appropriate, Instruct patient to recognize signs & symptoms of depression, Instruct patient to recog and Other additional plan/intervention Psychosocial - 60-Day Visit Date of Eval: 08/17/24 Session Number:: 22 Problems/Goals History of Emotional Disorders: Depression (pt has attended stress management class. Pt is doing well at this time.) Psychosocial Goals: 1. Patient is free from overwhelming symtoms of depression (or anxiety, 2. Identifies personal stressors & states the strategies for managing, 3. Identifies activities to decrease isolation and/or symptoms of, 4. Improved psychosocial coping skills., 5. Verbalizes coping strategies., 6. Adequate treatment of depression. and 7. Improved Q.O.L. Psychosocial Test Tool Used:: Pulmonary QOL and PHQ-9 Questionnaire Referred to MD for counseling:: No Referral to Behavioral Health PS - Interventions: Yes: Attend Stress Management Classes Plan Interventions/Plan:: Assess stressors,coping strategies & signs of derpression on admission, Instruct/assist pt to develop coping & personal stress Mgt strategies, Refer to Behavioral Health if appropriate, Refer to Physician if appropriate, Instruct patient to recognize signs & symptoms of depression, Instruct patient to recog and Other additional plan/intervention Psychosocial - 90-Day Visit Session Number:: 22 Problems/Goals History of Emotional Disorders: Depression (pt has attended stress management class. Pt is doing well at this time.) Psychosocial Goals: 1. Patient is free from overwhelming symtoms of depression (or anxiety, 2. Identifies personal stressors & states the strategies for managing, 3. Identifies activities to decrease isolation and/or symptoms of, 4. Improved psychosocial coping skills., 5. Verbalizes coping strategies., 6. Adequate treatment of depression. and 7. Improved Q.O.L. Psychosocial Test Tool Used:: Pulmonary QOL and PHQ-9 Questionnaire Referred to MD for counseling:: No Referral to Behavioral Health PS - Interventions: Yes: Attend Stress Management Classes Plan Interventions/Plan:: Assess stressors,coping strategies & signs of derpression on admission, Instruct/assist pt to develop coping & personal stress Mgt strategies, Refer to Behavioral Health if appropriate, Refer to Physician if appropriate, Instruct patient to recognize signs & symptoms of depression, In struct patient to recog and Other additional plan/intervention Psychosocial - Final Assess Visit Session Number:: 22 Problems/Goals History of Emotional Disorders: Depression (pt has attended stress management class. Pt is doing well at this time.) Psychosocial Goals: 1. Patient is free from overwhelming symtoms of depression (or anxiety, 2. Identifies personal stressors & states the strategies for managing, 3. Identifies activities to decrease isolation and/or symptoms of, 4. Improved psychosocial coping skills., 5. Verbalizes coping strategies., 6. Adequate treatment of depression. and 7. Improved Q.O.L. Psychosocial Test Tool Used:: Pulmonary QOL and PHQ-9 Questionnaire Referred to MD for counseling:: No Referral to Behavioral Health PS - Interventions: Yes: Attend Stress Management Classes Plan Interventions/Plan:: Assess stressors,coping strategies & signs of derpression on admission, Instruct/assist pt to develop coping & personal stress Mgt strategies, Refer to Behavioral Health if appropriate, Refer to Physician if appropriate, Instruct patient to recognize signs & symptoms of depression, Instruct patient to recog and Other additional plan/intervention Oxygen & Oxygen Titration Init Visit Session Number:: 22 Initial Assessment SpO2:: 87 Oxygen & Oxygen Titration 30D Visit Date of Eval: 08/17/24 Session Number:: 22 Reassessment SpO2:: 87 Oxygen & Oxygen Titration 60D Visit Date of Eval: 08/17/24 Session Number:: 22 Reassessment Reassessment- 60 Days: Demonstrate knowledge of O2 Rx at rest & w/exercise, Using O2 as Rx'd, Has home O2 as Rx'd and Uses port O2 as Rx'd (pt is using 4-5 L of O2 with exercise.) SpO2:: 87 Oxygen & Oxygen Titration 90D Visit Date of Eval: 08/17/24 Session Number:: 22 Reassessment SpO2:: 87 Oxygen & Oxygen Titration ERASMO Visit Date of Eval: 08/17/24 Session Number:: 22 Reassessment SpO2:: 87 Core Components - Initial Visit Session Number:: 22 Hypertension BP: 110/54 [place] [employer] Hypertension Guidelines Blood Pressure: 150/66 Outcomes/Goals: Able to verbalize/achieve optimal blood pressure <130/80 and Incorporates diet changes & exercise for blood pressure control by DC Tobacco - Initial Assessment Tobacco Program Goals Do you have family support?: Yes Tobacco Use: Non-smoker (Pt has stopped smoking) Diabetes Diabetes:: No Heart Failure Documenting weight daily for CHF: Yes Core Components - 30 DAYS Visit Date of Eval: 08/17/24 Session Number:: 22 Hypertension Resting Blood Pressure:: 110/54 [place] [employer] Hypertension Guidelines Peak Exercise Blood Pressure:: 150/66 Change in medication: No Outcomes/Goals: Able to verbalize/achieve optimal blood pressure <130/80 and Incorporates diet changes & exercise for blood pressure control by DC Interventions/plan: Instruct on optimal blood pressure, hypertension & medications, Instruct on effects of sodium, alcohol, stress, exercise &hypertension and Other additional plan/interventions 30 day Reassessments:: Met Reassessment Notes & Comments:: Pt's BP's are within AHA normal limits. Will continue to monitor and report to physician if necessary. Tobacco - 30-Day Tobacco Program Goals Do you have family support?: Yes Tobacco Use: Non-smoker (Pt has stopped smoking) Exacerbation Mgmt & Airway Clearance Reassessment: Demonstrates knowledge of O2 Rx at rest, Demonstrates knowledge of O2 Rx with exercise, Using O2 as prescribed, Has home O2 as prescribed and Uses port O2 as prescribed Bronchial Hygiene Plan: Yes: Pt demonstrates correctly for effective cough, Yes: Pt demo correct for CPT, Yes: Pt demo correct for device, Yes: Pt demo correct for NS nasal spray, Yes: Pt demo correct for sputum management, Yes: Pt demo correct for improved hydration, Yes: Pt demo correct for hand hygiene, Yes: Pt demo correct for evalute sputum, Yes: Pt demo correct for verbalize when to call MD and Yes: Pt demo correct for cleaning of respiratory equipment Medication Medication reassessment: Yes: Pt demonstrates correct technique timing for MDI, Yes: Pt demonstrates correct technique timing for DPI, Yes: Pt demonstrates correct technique timing for NEB and Yes: Pt demonstrates correct technique timing for spacer Diabetes Diabetes:: No Heart Failure Documenting weight fabio: Yes Core Components - 60 DAYS Visit Date of Eval: 08/17/24 Session Number:: 22 Hypertension Resting Blood Pressure:: 110/54 [place] [employer] Hypertension Guidelines Peak Exercise Blood Pressure:: 150/66 Change in medication: No Outcomes/Goals: Able to verbalize/achieve optimal blood pressure <130/80 and Incorporates diet changes & exercise for blood pressure control by DC Interventions/plan: Instruct on optimal blood pressure, hypertension & medications, Instruct on effects of sodium, alcohol, stress, exercise &hypertension and Other additional plan/interventions 60 day Reassessments:: Met Reassessment Notes & Comments:: Pt's BP's are within AHA normal limits. Will continue to monitor and report to physician if necessary. Tobacco - 60-Day Tobacco Program Goals Do you have family support?: Yes Tobacco Use: Non-smoker (Pt has stopped smoking) Exacerbation Mgmt & Airway Clearance Reassessment: Demonstrates knowledge of O2 Rx at rest, Demonstrates knowledge of O2 Rx with exercise, Using O2 as prescribed, Has home O2 as prescribed and Uses port O2 as prescribed Bronchial Hygiene Plan: Yes: Pt demonstrates correctly for effective cough, Yes: Pt demo correct for CPT, Yes: Pt demo correct for device, Yes: Pt demo correct for NS nasal spray, Yes: Pt demo correct for sputum management, Yes: Pt demo correct for improved hydration, Yes: Pt demo correct for hand hygiene, Yes: Pt demo correct for evalute sputum, Yes: Pt demo correct for verbalize when to call MD and Yes: Pt demo correct for cleaning of respiratory equipment Medication Medication list reviewed:: Yes Taking medications 100% of the time:: Met Medication reassessment: Yes: Pt demonstrates correct technique timing for MDI, Yes: Pt demonstrates correct technique timing for DPI, Yes: Pt demonstrates correct technique timing for NEB and Yes: Pt demonstrates correct technique timing for spacer 60-day Reassessments:: Met Diabetes Diabetes:: No Heart Failure Documenting weight fabio: Yes Core Components - 90 DAYS Visit Session Number:: 22 Hypertension Resting Blood Pressure:: 110/54 [place] [employer] Hypertension Guidelines Peak Exercise Blood Pressure:: 150/66 Outcomes/Goals: Able to verbalize/achieve optimal blood pressure <130/80 and Incorporates diet changes & exercise for blood pressure control by DC Interventions/plan: Instruct on optimal blood pressure, hypertension & medications, Instruct on effects of sodium, alcohol, stress, exercise &hypertension and Other additional plan/interventions 90 day Reassessments:: Met Reassessment Notes & Comments:: Pt's BP's are within AHA normal limits. Will continue to monitor and report to physician if necessary. Tobacco - 90-Day Tobacco Program Goals Do you have family support?: Yes Tobacco Use: Non-smoker (Pt has stopped smoking) Exacerbation Mgmt & Airway Clearance Bronchial Hygiene Plan: Yes: Pt demonstrates correctly for effective cough, Yes: Pt demo correct for CPT, Yes: Pt demo correct for device, Yes: Pt demo correct for NS nasal spray, Yes: Pt demo correct for sputum management, Yes: Pt demo correct for improved hydration, Yes: Pt demo correct for hand hygiene, Yes: Pt demo correct for evalute sputum, Yes: Pt demo correct for verbalize when to call MD and Yes: Pt demo correct for cleaning of respiratory equipment Medication Medication reassessment: Yes: Pt demonstrates correct technique timing for MDI, Yes: Pt demonstrates correct technique timing for DPI, Yes: Pt demonstrates correct technique timing for NEB and Yes: Pt demonstrates correct technique timing for spacer Diabetes Diabetes:: No Core Components - Final Visit Session Number:: 22 Hypertension Resting Blood Pressure:: 110/54 [place] [employer] Hypertension Guidelines Peak Exercise Blood Pressure:: 150/66 Outcomes/Goals: Able to verbalize/achieve optimal blood pressure <130/80 and Incorporates diet changes & exercise for blood pressure control by DC Tobacco - Final Tobacco Program Goals Do you have family support?: Yes Tobacco Use: Non-smoker (Pt has stopped smoking) Exacerbation Mgmt & Airway Clearance Bronchial Hygiene Plan: Yes: Pt demonstrates correctly for effective cough, Yes: Pt demo correct for CPT, Yes: Pt demo correct for device, Yes: Pt demo correct for NS nasal spray, Yes: Pt demo correct for sputum management, Yes: Pt demo correct for improved hydration, Yes: Pt demo correct for hand hygiene, Yes: Pt demo correct for evalute sputum, Yes: Pt demo correct for verbalize when to call MD and Yes: Pt demo correct for cleaning of respiratory equipment Medication Medication reassessment: Yes: Pt demonstrates correct technique timing for MDI, Yes: Pt demonstrates correct technique timing for DPI, Yes: Pt demonstrates correct technique timing for NEB and Yes: Pt demonstrates correct technique timing for spacer Diabetes Diabetes:: No Patient Health Questionnaire PHQ-9 Screening 60-Day Re-eval Assessment: 1. Little interest or pleasure in doing things: More than half the days 2. Feeling down, depressed, or hopeless: Several days 3. Trouble falling or staying asleep, or sleeping too much: Not at all 4. Feeling tired or having little energy: Several days 5. Poor appetite or overeating: Several days 6. Feeling bad about yourself -- or that you are a failure or have let yourself or your family down: Several days 7. Trouble concentrating on things, such as reading the newspaper or watching television: Not at all 8. Moving or speaking so slowly that other people could have noticed. Or the opposite - being so fidgety or restless that you have been moving around a lot more than usual: Not at all 9. Thoughts that you would be better off , or of hurting yourself in some way: Not at all How difficult have these problems made it for you to do your work, take care of things at home, or get along with other people?: Somewhat difficult Total Score: 6 Knowledge Questionaire (BCKQ) Information Information: [place] COPD Knowledge Questionnaire (BCKQ) This questionnaire is designed to find out what you know about your lung problem. It should be completed without help form anyone else. This usually takes between 10 and 20 minutes. Your answers will help us to find out what information you need to help you to understand and manage your lung condition. [place] which you think is the correct answer. Self-Efficacy 6-Item Scale 60-Day Re-eval Assessment: We would like to know how confident you are in doing certain activities. Please select your confidence level for: Fatigue Select Number: 4 Physical Discomfort or Pain Select Number: 6 Emotional Distress Select Number: 5 Other Symptoms or Health Problems Select Number: 4 Different Tasks and Activities Select Number: 5 Medication Select Number: 6 Total Score:: 5 Nutrition Survey Nutrition Survey Instructions Scoring Instructions
[2024-08-17 07:18] VITALS: BP 110/54; BP 150/66; O2SAT 87; BMI 26.0
== END 2024-08-28 23:59 ==
LOC: PR 10:00
PROVIDERS: PCP Internal Medicine; Referring Provider Internal Medicine; Visit Provider Internal Medicine
DX: J96.01 Acute respiratory failure with hypoxia (principal); J44.9 Chronic obstructive pulmonary disease, unspecified
CPT/HCPCS: 97150; 94626

== ENCOUNTER 2024-09-28 10:00 | Outpatient (RCR) | payer MEDICARE, OTHER, SELFPAY ==
[2024-08-29 00:41] VITALS: BP 110/60; BP 152/72; BMI 25.0
--- NOTE | 2024-09-19 08:10 | PCM.CR.ITP ---
Psychosocial - Initial Assess Target Goals Target Goals Nutrition Survey Nutrition Survey Instructions Scoring Instructions Psychosocial - 30-Day Assess Target Goals Target Goals Psychosocial - 60-Day Assess Target Goals Target Goals Psychosocial - 90-Day Assess Target Goals Target Goals Psychosocial - Final Assessmen Target Goals Target Goals
--- NOTE | 2024-09-19 08:18 | PCM.PR.TP ---
Exercise - Initial Assessment Visit Session Number:: 30 Physician Prescribed Exercise Modalities: Treadmill, SciFit Stepper and SciFit Pro-II Ergometer Current METSs:: 4.3 Target HR:: 109 (94-109) Current RPD:: 2-3 Maximum Exercise HR:: 112 Resting Blood Pressure: 112/60 Maximum Exercise Blood Pressure: 162/82 Minimum SpO2 with exercise: 89 EKG Type: NSR to ST Nutrition/Wt Mgmt - Initial Visit Session Number:: 30 Weight Management Admit Height:: 6 ft Admit Weight:: 194 lb Admit BMI:: 26.3 Nutrition/Wt Mgmt - 30-Day Visit Date of Eval: 09/19/24 Session Number:: 30 Weight Management Height: 6 ft Weight:: 194 lb BMI: 26.3 Nutrition/Wt Mgmt - 60-Day Visit Date of Eval: 09/19/24 Session Number:: 30 Weight Management Height: 6 ft Weight:: 194 lb BMI: 26.3 Weight Goals Progress:: Goal met (Pt has attended nutrition class. Pt understands the importance of a low sodium heart healthy diet.) Nutrition/Wt Mgmt - 90-Day Visit Date of Eval: 09/19/24 Session Number:: 30 Weight Management Height: 6 ft Weight:: 194 lb BMI: 26.3 Weight Goals Progress:: Goal met (Pt has attended nutrition class. Pt understands the importance of a low sodium heart healthy diet.) Nutrition/Wt Mgmt - Final Visit Session Number:: 30 Weight Management Height: 6 ft Weight:: 194 lb BMI: 26.3 Psychosocial - Initial Assess Visit Session Number:: 30 Problems/Goals History of Emotional Disorders: Depression (pt has attended stress management class. Pt is doing well at this time. Will continue to monitor and report to pts physician if needed.) Psychosocial Goals: 1. Patient is free from overwhelming symtoms of depression (or anxiety, 2. Identifies personal stressors & states the strategies for managing, 3. Identifies activities to decrease isolation and/or symptoms of, 4. Improved psychosocial coping skills., 5. Verbalizes coping strategies., 6. Adequate treatment of depression. and 7. Improved Q.O.L. Psychosocial Test Tool Used:: Pulmonary QOL and PHQ-9 Questionnaire Referred to MD for counseling:: No Referral to Behavioral Health PS - Interventions: Yes: Attend Stress Management Classes Intervention/Plan: See List Interventions/Plan:: Assess stressors,coping strategies & signs of derpression on admission, Instruct/assist pt to develop coping & personal stress Mgt strategies, Refer to Behavioral Health if appropriate, Refer to Physician if appropriate, Instruct patient to recognize signs & symptoms of depression and Instruct patient to recog Psychosocial - 30-Day Visit Date of Eval: 09/19/24 Session Number:: 30 Problems/Goals History of Emotional Disorders: Depression (pt has attended stress management class. Pt is doing well at this time. Will continue to monitor and report to pts physician if needed.) Psychosocial Goals: 1. Patient is free from overwhelming symtoms of depression (or anxiety, 2. Identifies personal stressors & states the strategies for managing, 3. Identifies activities to decrease isolation and/or symptoms of, 4. Improved psychosocial coping skills., 5. Verbalizes coping strategies., 6. Adequate treatment of depression. and 7. Improved Q.O.L. Psychosocial Test Tool Used:: Pulmonary QOL and PHQ-9 Questionnaire Referred to MD for counseling:: No Referral to Behavioral Health PS - Interventions: Yes: Attend Stress Management Classes Plan Interventions/Plan:: Assess stressors,coping strategies & signs of derpression on admission, Instruct/assist pt to develop coping & personal stress Mgt strategies, Refer to Behavioral Health if appropriate, Refer to Physician if appropriate, Instruct patient to recognize signs & symptoms of depression and Instruct patient to recog Psychosocial - 60-Day Visit Date of Eval: 09/19/24 Session Number:: 30 Problems/Goals History of Emotional Disorders: Depression (pt has attended stress management class. Pt is doing well at this time. Will continue to monitor and report to pts physician if needed.) Psychosocial Goals: 1. Patient is free from overwhelming symtoms of depression (or anxiety, 2. Identifies personal stressors & states the strategies for managing, 3. Identifies activities to decrease isolation and/or symptoms of, 4. Improved psychosocial coping skills., 5. Verbalizes coping strategies., 6. Adequate treatment of depression. and 7. Improved Q.O.L. Depression:: Self report Psychosocial Test Tool Used:: Pulmonary QOL and PHQ-9 Questionnaire Referred to MD for counseling:: No Referral to Behavioral Health PS - Interventions: Yes: Attend Stress Management Classes Plan Interventions/Plan:: Assess stressors,coping strategies & signs of derpression on admission, Instruct/assist pt to develop coping & personal stress Mgt strategies, Refer to Behavioral Health if appropriate, Refer to Physician if appropriate, Instruct patient to recognize signs & symptoms of depression and Instruct patient to recog Psychosocial - 90-Day Visit Date of Eval: 09/19/24 Session Number:: 30 Problems/Goals History of Emotional Disorders: Depression (pt has attended stress management class. Pt is doing well at this time. Will continue to monitor and report to pts physician if needed.) Psychosocial Goals: 1. Patient is free from overwhelming symtoms of depression (or anxiety, 2. Identifies personal stressors & states the strategies for managing, 3. Identifies activities to decrease isolation and/or symptoms of, 4. Improved psychosocial coping skills., 5. Verbalizes coping strategies., 6. Adequate treatment of depression. and 7. Improved Q.O.L. Depression:: Self report Psychosocial Test Tool Used:: Pulmonary QOL and PHQ-9 Questionnaire Referred to MD for counseling:: No Referral to Behavioral Health PS - Interventions: Yes: Attend Stress Management Classes Plan Interventions/Plan:: Assess stressors,coping strategies & signs of derpression on admission, Instruct/assist pt to develop coping & personal stress Mgt strategies, Refer to Behavioral Health if appropriate, Refer to Physician if appropriate, Instruct patient to recognize signs & symptoms of depression and Instruct patient to recog Psychosocial - Final Assess Visit Session Number:: 30 Problems/Goals History of Emotional Disorders: Depression (pt has attended stress management class. Pt is doing well at this time. Will continue to monitor and report to pts physician if needed.) Psychosocial Goals: 1. Patient is free from overwhelming symtoms of depression (or anxiety, 2. Identifies personal stressors & states the strategies for managing, 3. Identifies activities to decrease isolation and/or symptoms of, 4. Improved psychosocial coping skills., 5. Verbalizes coping strategies., 6. Adequate treatment of depression. and 7. Improved Q.O.L. Depression:: Self report Psychosocial Test Tool Used:: Pulmonary QOL and PHQ-9 Questionnaire Referred to MD for counseling:: No Referral to Behavioral Health PS - Interventions: Yes: Attend Stress Management Classes Plan Interventions/Plan:: Assess stressors,coping strategies & signs of derpression on admission, Instruct/assist pt to develop coping & personal stress Mgt strategies, Refer to Behavioral Health if appropriate, Refer to Physician if appropriate, Instruct patient to recognize signs & symptoms of depression and Instruct patient to recog Oxygen & Oxygen Titration Init Visit Session Number:: 30 Initial Assessment SpO2:: 89 Oxygen & Oxygen Titration 30D Visit Date of Eval: 09/19/24 Session Number:: 30 Reassessment SpO2:: 89 Oxygen & Oxygen Titration 60D Visit Date of Eval: 09/19/24 Session Number:: 30 Reassessment SpO2:: 89 Oxygen & Oxygen Titration 90D Visit Date of Eval: 09/19/24 Session Number:: 30 Reassessment Oxygen & Oxygen Titration 90 days: Continuous Home Use, Oxygen w/activity and Oxygen at HS SpO2:: 89 Oxygen & Oxygen Titration ERASMO Visit Date of Eval: 09/19/24 Session Number:: 30 Reassessment SpO2:: 89 Core Components - Initial Visit Session Number:: 30 Hypertension Hypertension Diagnosis:: Hypertension ICD-10 I10 BP: 112/60 [place] [employer] Hypertension Guidelines Blood Pressure: 162/82 Outcomes/Goals: Able to verbalize/achieve optimal blood pressure <130/80 and Incorporates diet changes & exercise for blood pressure control by DC Tobacco - Initial Assessment Tobacco Program Goals Stages of Change:: Maintenance Do you have family support?: Yes Tobacco Use: Non-smoker (pt has stopped smoking) Gave Education Materials For:: Tobacco Triggers, Pulmonary Disease, Risk Factors, Breathing Techniques, Medical Compliance, Pulmonary A&P, Exacerbation Signs & Symptoms and Stress & Relaxation Diabetes Diabetes:: No Core Components - 30 DAYS Visit Date of Eval: 09/19/24 Session Number:: 30 Hypertension Hypertension Diagnosis:: Hypertension ICD-10 I10 Resting Blood Pressure:: 112/60 [place] [employer] Hypertension Guidelines Peak Exercise Blood Pressure:: 162/82 Outcomes/Goals: Able to verbalize/achieve optimal blood pressure <130/80 and Incorporates diet changes & exercise for blood pressure control by DC Interventions/plan: Instruct on optimal blood pressure, hypertension & medications and Instruct on effects of sodium, alcohol, stress, exercise &hypertension 30 day Reassessments:: Met Tobacco - 30-Day Tobacco Program Goals Stages of Change:: Maintenance Learning Barriers: Participates in education Do you have family support?: Yes Tobacco Use: Non-smoker (pt has stopped smoking) Gave Education Materials For:: Tobacco Triggers, Pulmonary Disease, Risk Factors, Breathing Techniques, Medical Compliance, Pulmonary A&P, Exacerbation Signs & Symptoms and Stress & Relaxation 30-day Reassessments:: Met Exacerbation Mgmt & Airway Clearance Bronchial Hygiene Plan: Yes: Pt demonstrates correctly for effective cough, Yes: Pt demo correct for CPT, Yes: Pt demo correct for device, Yes: Pt demo correct for NS nasal spray, Yes: Pt demo correct for sputum management, Yes: Pt demo correct for improved hydration, Yes: Pt demo correct for hand hygiene, Yes: Pt demo correct for evalute sputum, Yes: Pt demo correct for verbalize when to call MD and Yes: Pt demo correct for cleaning of respiratory equipment Medication Medication reassessment: Yes: Pt demonstrates correct technique timing for MDI, Yes: Pt demonstrates correct technique timing for DPI, Yes: Pt demonstrates correct technique timing for NEB and Yes: Pt demonstrates correct technique timing for spacer Diabetes Diabetes:: No Core Components - 60 DAYS Visit Date of Eval: 09/19/24 Session Number:: 30 Hypertension Hypertension Diagnosis:: Hypertension ICD-10 I10 Resting Blood Pressure:: 112/60 [place] [employer] Hypertension Guidelines Peak Exercise Blood Pressure:: 162/82 Outcomes/Goals: Able to verbalize/achieve optimal blood pressure <130/80 and Incorporates diet changes & exercise for blood pressure control by DC Interventions/plan: Instruct on optimal blood pressure, hypertension & medications and Instruct on effects of sodium, alcohol, stress, exercise &hypertension 60 day Reassessments:: Met Tobacco - 60-Day Tobacco Program Goals Stages of Change:: Maintenance Learning Barriers: Participates in education Do you have family support?: Yes Tobacco Use: Non-smoker (pt has stopped smoking) Gave Education Materials For:: Tobacco Triggers, Pulmonary Disease, Risk Factors, Breathing Techniques, Medical Compliance, Pulmonary A&P, Exacerbation Signs & Symptoms and Stress & Relaxation 60-day Reassessments:: Met Exacerbation Mgmt & Airway Clearance Bronchial Hygiene Plan: Yes: Pt demonstrates correctly for effective cough, Yes: Pt demo correct for CPT, Yes: Pt demo correct for device, Yes: Pt demo correct for NS nasal spray, Yes: Pt demo correct for sputum management, Yes: Pt demo correct for improved hydration, Yes: Pt demo correct for hand hygiene, Yes: Pt demo correct for evalute sputum, Yes: Pt demo correct for verbalize when to call MD and Yes: Pt demo correct for cleaning of respiratory equipment Medication Medication reassessment: Yes: Pt demonstrates correct technique timing for MDI, Yes: Pt demonstrates correct technique timing for DPI, Yes: Pt demonstrates correct technique timing for NEB and Yes: Pt demonstrates correct technique timing for spacer Diabetes Diabetes:: No Core Components - 90 DAYS Visit Date of Evsteve: 09/19/24 Session Number:: 30 Hypertension Hypertension Diagnosis:: Hypertension ICD-10 I10 Resting Blood Pressure:: 112/60 [place] [employer] Hypertension Guidelines Peak Exercise Blood Pressure:: 162/82 Outcomes/Goals: Able to verbalize/achieve optimal blood pressure <130/80 and Incorporates diet changes & exercise for blood pressure control by DC Interventions/plan: Instruct on optimal blood pressure, hypertension & medications and Instruct on effects of sodium, alcohol, stress, exercise &hypertension 90 day Reassessments:: Met Tobacco - 90-Day Tobacco Program Goals Stages of Change:: Maintenance Learning Barriers: Participates in education Do you have family support?: Yes Tobacco Use: Non-smoker (pt has stopped smoking) Gave Education Materials For:: Tobacco Triggers, Pulmonary Disease, Risk Factors, Breathing Techniques, Medical Compliance, Pulmonary A&P, Exacerbation Signs & Symptoms and Stress & Relaxation 90-day Reassessments:: Met Exacerbation Mgmt & Airway Clearance Reassessment: Demonstrates knowledge of O2 Rx at rest, Demonstrates knowledge of O2 Rx with exercise, Using O2 as prescribed, Has home O2 as prescribed and Uses port O2 as prescribed Bronchial Hygiene Plan: Yes: Pt demonstrates correctly for effective cough, Yes: Pt demo correct for CPT, Yes: Pt demo correct for device, Yes: Pt demo correct for NS nasal spray, Yes: Pt demo correct for sputum management, Yes: Pt demo correct for improved hydration, Yes: Pt demo correct for hand hygiene, Yes: Pt demo correct for evalute sputum, Yes: Pt demo correct for verbalize when to call MD and Yes: Pt demo correct for cleaning of respiratory equipment Medication Medication list reviewed:: Yes Taking medications 100% of the time:: Met Medication reassessment: Yes: Pt demonstrates correct technique timing for MDI, Yes: Pt demonstrates correct technique timing for DPI, Yes: Pt demonstrates correct technique timing for NEB and Yes: Pt demonstrates correct technique timing for spacer Diabetes Diabetes:: No Core Components - Final Visit Session Number:: 30 Hypertension Hypertension Diagnosis:: Hypertension ICD-10 I10 Resting Blood Pressure:: 112/60 [place] [employer] Hypertension Guidelines Peak Exercise Blood Pressure:: 162/82 Outcomes/Goals: Able to verbalize/achieve optimal blood pressure <130/80 and Incorporates diet changes & exercise for blood pressure control by DC Tobacco - Final Tobacco Program Goals Stages of Change:: Maintenance Learning Barriers: Participates in education Do you have family support?: Yes Tobacco Use: Non-smoker (pt has stopped smoking) Exacerbation Mgmt & Airway Clearance Bronchial Hygiene Plan: Yes: Pt demonstrates correctly for effective cough, Yes: Pt demo correct for CPT, Yes: Pt demo correct for device, Yes: Pt demo correct for NS nasal spray, Yes: Pt demo correct for sputum management, Yes: Pt demo correct for improved hydration, Yes: Pt demo correct for hand hygiene, Yes: Pt demo correct for evalute sputum, Yes: Pt demo correct for verbalize when to call MD and Yes: Pt demo correct for cleaning of respiratory equipment Medication Medication reassessment: Yes: Pt demonstrates correct technique timing for MDI, Yes: Pt demonstrates correct technique timing for DPI, Yes: Pt demonstrates correct technique timing for NEB and Yes: Pt demonstrates correct technique timing for spacer Diabetes Diabetes:: No Patient Health Questionnaire PHQ-9 Screening 90-Day Re-eval Assessment: 1. Little interest or pleasure in doing things: More than half the days 2. Feeling down, depressed, or hopeless: Several days 3. Trouble falling or staying asleep, or sleeping too much: Not at all 4. Feeling tired or having little energy: Several days 5. Poor appetite or overeating: Several days 6. Feeling bad about yourself -- or that you are a failure or have let yourself or your family down: Several days 7. Trouble concentrating on things, such as reading the newspaper or watching television: Not at all 8. Moving or speaking so slowly that other people could have noticed. Or the opposite - being so fidgety or restless that you have been moving around a lot more than usual: Not at all 9. Thoughts that you would be better off , or of hurting yourself in some way: Not at all How difficult have these problems made it for you to do your work, take care of things at home, or get along with other people?: Somewhat difficult Total Score: 6 Knowledge Questionaire (BCKQ) Information Information: [place] COPD Knowledge Questionnaire (BCKQ) This questionnaire is designed to find out what you know about your lung problem. It should be completed without help form anyone else. This usually takes between 10 and 20 minutes. Your answers will help us to find out what information you need to help you to understand and manage your lung condition. [place] which you think is the correct answer. Self-Efficacy 6-Item Scale 90-Day Re-eval Assessment: We would like to know how confident you are in doing certain activities. Please select your confidence level for: Fatigue Select Number: 4 Physical Discomfort or Pain Select Number: 6 Emotional Distress Select Number: 5 Other Symptoms or Health Problems Select Number: 4 Different Tasks and Activities Select Number: 5 Medication Select Number: 6 Total Score:: 5 Nutrition Survey Nutrition Survey Instructions Scoring Instructions
[2024-09-19 08:26] VITALS: BP 112/60; O2SAT 89
[2024-09-19 08:28] VITALS: BMI 26.3
[2024-09-19 08:41] VITALS: BP 112/60; BP 162/82
== END 2024-09-28 23:59 ==
LOC: PR 10:00
PROVIDERS: PCP Internal Medicine; Referring Provider Internal Medicine; Visit Provider Internal Medicine
DX: J96.01 Acute respiratory failure with hypoxia (principal)
CPT/HCPCS: 97150; 94626

== ENCOUNTER 2024-10-08 09:45 | Outpatient (RCR) | payer MEDICARE, OTHER, SELFPAY ==
[2024-09-19 08:28] VITALS: BMI 26.3
[2024-09-29 02:12] VITALS: BP 112/60; BP 162/82; BMI 26.3
== END 2024-10-26 23:59 ==
LOC: PR 09:45
PROVIDERS: PCP Internal Medicine; Referring Provider Internal Medicine; Visit Provider Internal Medicine
DX: J96.01 Acute respiratory failure with hypoxia (principal)
CPT/HCPCS: 97150; 94626

== ENCOUNTER → 2025-01-02 | Outpatient (CLI) | payer MEDICARE, OTHER, SELFPAY ==
[2024-09-19 08:28] VITALS: BMI 26.3
[2025-01-02 16:16] LABS: Potassium 4.6 mmol/L (3.3-5.1)
== END | disposition home or self-care (01) ==
LOC: LABSPEC 15:12
PROVIDERS: PCP Internal Medicine; Referring Provider Internal Medicine; Visit Provider Internal Medicine
DX: E87.5 Hyperkalemia (principal)
CPT/HCPCS: 84132

== ENCOUNTER → 2025-03-25 | Outpatient (CLI) | payer MEDICARE, OTHER, SELFPAY ==
[2024-09-19 08:28] VITALS: BMI 26.3
--- NOTE | 2025-03-25 10:10 | STRESSREP_ITS ---
Stress Test Report Exercise myocardial perfusion stress test. 74-year-old male with a history of moderate CAD and dyspnea Stress protocol: Resting EKG demonstrates sinus bradycardia with a rate of 55 bpm and premature ventricular complexes. Resting blood pressure is 118/82 mmHg. The patient exercised according to the regular [facility] protocol for a total duration of 3 minutes and 30 seconds attaining a maximum heart rate of 121 bpm which was 83% of maximum predicted heart rate; the maximum workload was 5.8 metabolic equivalents. At rest there were no ST or T wave changes noted to suggest ischemia and at peak exercise upsloping ST changes only were noted which did not meet the criteria for ischemia. No clinical angina was noted the test was terminated due to the target heart rate being achieved/fatigue. The peak blood pressure was 140/78 mmHg. Rate-pressure product was 14,900. Patient was noted to be markedly short of breath with desaturation of his oxygenation from 95% on 2 L nasal cannula to 87%. Myocardial perfusion protocol. 13.8 mCi of technetium 99m sestamibi was injected at rest. The patient exercised according to regular [facility] protocol for total duration of 3 minutes and 30 seconds and at peak exercise 42.1 mCi of technetium 99m sestamibi was injected stress images were obtained stress and rest images were reconstructed in comparing the short axis vertical long and horizontal long axis. Gated images were also obtained. Perfusion SPECT analysis: Review of the stress images demonstrate normal uptake of tracer noted in all a reas of the myocardium. The resting images similarly demonstrate normal uptake of tracer noted in all areas of the myocardium. No areas of reversibility are noted to suggest ischemia no previous infarct was noted. Gated SPECT analysis: The gated ejection fraction is 75%. Conclusion: Normal exercise myocardial perfusion stress test at a low to moderate workload Preserved ejection fraction.
== END | disposition home or self-care (01) ==
PROVIDERS: PCP Internal Medicine; Referring Provider Internal Medicine; Visit Provider Internal Medicine
DX: I25.10 Atherosclerotic heart disease of native coronary artery without angina pectoris (principal)
CPT/HCPCS: 78452; 93017; A9500; A4216

== ENCOUNTER → 2025-05-08 | Outpatient (CLI) | payer MEDICARE, OTHER, SELFPAY ==
[2024-09-19 08:28] VITALS: BMI 26.3
--- NOTE | 2025-05-08 13:47 | US_ITS ---
PROCEDURE: THYROID 05/08/2025 REASON FOR EXAM: THYROID NODULE TECHNIQUE: Procedure Code: USTHY Modality: US Procedure: THYROID COMPARISON: February 03, 2024 FINDINGS: Right thyroid lobe size: 4.3 x 1.7 x 1.4 cm Left thyroid lobe size: 4.5 x 1.7 x 1.6 cm Isthmus: 3 cm Background parenchymal echotexture is homogeneous. Nodules: 1. Lobe: Right, Location: Upper pole, Size: 0.8 cm, Stability: No significant change Composition: Solid or almost completely solid (+2) Echogenicity: Hyper to Isoechoic (+1) Margin: Smooth (+0) Shape: Wider than tall (+0) Echogenic Foci: None (+0) TI-RADS: 3. Mildly Suspicious: FNA if = 2.5 cm; Follow if = 1.5 cm at 1, 3, and 5 y 2. Lobe: Left, Location: Lower pole, Size: 0.9 cm, Stability: No significant change Composition: Solid or almost completely solid (+2) Echogenicity: Hyper to Isoechoic (+1) Margin: Smooth (+0) Shape: Wider than tall (+0) Echogenic Foci: None (+0) TI-RADS: 3. Mildly Suspicious: FNA if = 2.5 cm; Follow if = 1.5 cm at 1, 3, and 5 y 3. Lobe: Left, Location: Lower pole, Size: 0.9 cm, Stability: No significant change Composition: Solid or almost completely solid (+2) Echogenicity: Hyper to Isoechoic (+1) Margin: Smooth (+0) Shape: Wider than tall (+0) Echogenic Foci: None (+0) TI-RADS: 3. Mildly Suspicious: FNA if = 2.5 cm; Follow if = 1.5 cm at 1, 3, and 5 y 4. Lobe: Left, Location: Midpole, Size: 0.5 cm, Stability: Not applicable Composition: Mixed cystic and solid (+1) Echogenicity: Hyper to Isoechoic (+1) Margin: Smooth (+0) Shape: Wider than tall (+0) Echogenic Foci: None (+0) TI-RADS: 2 US/Thyroid IMPRESSION: No significant change. Reading Location: [id number]
--- NOTE | 2025-05-08 13:47 | CDU_ITS ---
Reason For Study Reason For Study: Carotid artery stenosis Rt. Velocities/BP Lt. Velocities/BP Prox CCA 105.8/15.7 cm/sec. Prox CCA 74.4/10.7 cm/sec. Mid CCA 88.3/16.8 cm/sec. Mid CCA 84.9/16.8 cm/sec. Dist CCA 83.9/14.6 cm/sec. Dist CCA 70/13.3 cm/sec. Prox ICA 86.1/19 cm/sec. Prox ICA 75.3/21.2 cm/sec. Mid ICA 104.7/30 cm/sec. Mid ICA 102.3/26.2 cm/sec. Dist ICA 89.4/26.7 cm/sec. Dist ICA 110.1/29.8 cm/sec. Rt. ICA/CCA = 1.19. Lt. ICA/CCA = 1.30. Prox ECA 91.6/8 cm/sec. Prox ECA 84.9/11.6 cm/sec. Rt. Vert. 50/14.2 cm/sec. Lt. Vert. 58.6/14.6 cm/sec. Right Extracranial There is homogeneous, smooth atherosclerotic plaque noted in the right common carotid artery. There is homogeneous, smooth atherosclerotic plaque noted in the right internal carotid artery. There is homogeneous, smooth atherosclerotic plaque noted in the right external carotid artery. Antegrade flow is noted in the right vertebral artery. Left Extracranial There is homogeneous, smooth atherosclerotic plaque noted in the left common carotid artery. There is heterogeneous, irregular atherosclerotic plaque noted in the left internal carotid artery. There is heterogeneous, irregular atherosclerotic plaque noted in the left external carotid artery. Antegrade flow is noted in the left vertebral artery. Procedure Carotid Duplex 86107. This is a Carotid Duplex examination using B-mode, color flow and specral Doppler. Exam performed in department. VL/Carotid Duplex Ultrasound Interpretation Summary Mild (<50%) stenosis right extracranial internal carotid. Mild (<50%) stenosis left extracranial internal carotid. Patent and antegrade vertebrals bilaterally. Ordering Physician: Jessica Simental Referring Physician: Jesisca Simental Performed By: Sunni Lanier RVT
== END | disposition home or self-care (01) ==
LOC: CVS 13:47
PROVIDERS: PCP Internal Medicine; Referring Provider Internal Medicine; Visit Provider Internal Medicine
DX: I65.23 Occlusion and stenosis of bilateral carotid arteries (principal); E04.1 Nontoxic single thyroid nodule
CPT/HCPCS: 76536; 93880

== ENCOUNTER 2025-05-13 15:37 | Emergency (ER) | payer MEDICARE, OTHER, SELFPAY ==
[2025-05-13 12:05] VITALS: BMI 26.3
[2025-05-13 15:38] VITALS: BP 130/83; PULSE 78; RESP 18; TEMP 36.2; O2SAT 94; BMI 26.6
--- NOTE | 2025-05-13 15:52 | ED.RN ---
pt states he fell by tripping on a garden hose 05/11. denies loc or hitting his head. since 05/11 patient has not been able to do as many of his daily activities without oxygen. before tuesday he stated he could walk his dog without oxygen but now becomes short of breath faster. Pt seen by his PCP today who said some of his labs were off and sent him here to be seen.
--- NOTE | 2025-05-13 16:12 | CT_ITS ---
PROCEDURE: CTA CHEST W/WO CONTRAST 05/13/2025 REASON FOR EXAM: SOB, ELEVATED D-DIMER TECHNIQUE: Procedure Code: [id number] Modality: CT Procedure: CTA CHEST W/WO CONTRAST Multiplanar Sagittal and Coronal images were obtained. CONTRAST: Isovue 370 VOLUME: 100 mL One or more dose reduction techniques were used (e.g., Automated exposure control, adjustment of the mA and/or kV according to patient size, use of iterative reconstruction technique). RADIATION DOSE SUMMARY: CTDlvol: 10.01 mGy DLP: 366.25 mGycm COMPARISON: None. # of known CTs in the past 12 months: None. # of known Cardiac Nuclear Medicine Studies in the past 12 months: None. FINDINGS: Thoracic Aorta: No aneurysm. No dissection. Heart: No cardiomegaly. Atherosclerotic calcifications of the coronary arteries. Pulmonary Vessels: No evidence of pulmonary embolism. Hardware: None. Lymph nodes: No lymphadenopathy. Lungs and Airways: Patent. Pulmonary emphysema. Calcified granuloma in the right upper lobe. Atelectasis in the left lower lobe. No active pulmonary consolidation. Pleura: No pleural effusion or pneumothorax. Upper Abdomen: A 4 cm simple cyst in the right hepatic lobe. Multiple left kidney cysts with the largest measures 3 cm at the upper pole. Bones: No acute bony abnormalities. Osteopenia. CT/CTA Chest W/WO Contrast IMPRESSION: No evidence of pulmonary embolism or acute chest findings. Pulmonary emphysema. Reading Location: [facility]
--- NOTE | 2025-05-13 16:13 | EKG12_ITS ---
Test Reason : Blood Pressure : */* mmHG Vent. Rate : 60 BPM Atrial Rate : 60 BPM P-R Int : 208 ms QRS Dur : 84 ms QT Int : 392 ms P-R-T Axes : 69 29 25 degrees QTcB Int : 392 ms Normal sinus rhythm Normal ECG Confirmed by German Colin ([id number]), publishing editor PETROS SEN ([id number]) on 05/14/2025 11:59:13 AM Referred By: Confirmed By: German Colin
--- NOTE | 2025-05-13 16:15 | EDS_ITS ---
HPI History of Present Illness Chief Complaint: Abn Labs Informant: patient, spouse/S.O. and PCP Narrative Narrative: 74-year-old male tripped over a hose 2 days ago, and accidentally fell to his left buttock according to the video they showed me on their ring doorbell camera, and injured his left knee and foot, which were x-rayed today and unremarkable, but he started getting more short of breath than usual a little later in the day after his fall. He states its with any little activity but resting he is good. He denies any chest discomfort even when taking deep inspiration. Does not feel like he injured his chest or ribs or head. He was able to get up and walk ever since the fall and states his soreness is mild does not think he broke anything is confirmed by the x-rays that were obtained, but also obtained were labs that included an elevated D-dimer and for that reason he was sent to the ER for CT angiography of the chest to rule out PE. He has never had a blood clot in the past. He denies any focal leg pain or swelling other than the abrasions and contusions that he sustained from the fall. He has had no edema. He denies having any immobilization, long travel out of the area, hospitalization, or surgery recently in the past couple months. He takes no anticoagulants for any reason just a baby aspirin daily. Patient states he has tried nothing for his dyspnea including rescue inhalers, he has been using his maintenance. [facility] Medical History Tobacco use Lung nodule Atherosclerosis of coronary artery of [place] heart without angina pectoris Osteoporosis PVD (peripheral vascular disease) Anemia Depression Thyroid nodule Obstructive sleep apnea COPD (chronic obstructive pulmonary disease) Erectile dysfunction Seizure disorder Lung nodule Hyperlipidemia Home Medications ?Medication ?Instructions ?Recorded ?Last Taken ?Type umeclidinium 62.5 mcg-vilanterol 1 inh inhalation Q24H 09/18/20 05/13/25 History 25 mcg/actuation powdr for inhalation atorvastatin 80 mg tablet 80 mg PO QHS 04/21/21 Unknow n History phenobarbital 16.2 mg tablet 64.8 mg PO QHS 60 days #2 40 tabs 04/21/21 05/12/25 History phenytoin sodium extended 100 mg 300 mg PO QODAY 04/2105/12/25 History capsule aspirin 81 mg tablet,delayed 81 mg PO QHS 02/26/23 History release (Adult Low Dose Aspirin) cholecalciferol (vitamin D3) 50 6,000 unit PO DAILY 05/13/25 History mcg (2,000 unit) capsule (D3-2000) phenytoin sodium extended 100 mg 200 mg PO QODAY 05/1305/11/25 History capsule prednisone 20 mg tablet 40 mg (2 x 20 mg) PO DAILY 5 days 05/13/25 Unknown Rx #10 tabs Allergy/AdvReac Type Severity Reaction Status Date / Time No Known Allergies Allergy Verified 05/13/25 15:38 Family History Father Kidney disease Heart disease CHF Sister Diabetes Mother Asthma Dementia Surgical History History of left heart catheterization (09/15/18) History of tonsillectomy History of appendectomy Social History household members: spouse Smoking Status: Former smoker quit date: 03/01/16 pack-years: 45 alcohol intake: current alcohol intake frequency: holidays/special occasions only substance use type: does not use ROS ROS ED Constitutional Constitutional ED: Denies chills or fever(s) Eyes Eyes: Denies change in vision or diplopia ENT ENT ED: Denies rhinorrhea or sore throat Cardiovascular Cardiovascular: Denies chest pain, orthopnea or palpitations Respiratory/Chest Respiratory/Chest: Reports dyspnea and dyspnea on exertion; Denies cough or orthopnea Gastrointestinal Gastrointestinal: Denies abdominal pain, diarrhea, nausea or vomiting Genitourinary Genitourinary ED: Denies dysuria or hematuria Musculoskeletal Musculoskeletal: Denies back pain or neck pain Integumentary Reports Abrasions; Denies abscess or rash Neurologic Neurologic: Denies headache(s), paresthesias or weakness Psychiatric Psychiatric: Denies anxiety or suicidal thoughts EXAM Physical Exam Const Vital Signs: 05/13/25 15:38 05/13/25 15:47 05/13/25 17:05 Temperature 97.1 F L Temperature Source Temporal Pulse Rate 78 68 Respiratory Rate 18 18 Respiratory Pattern Tachypnea Normal Blood Pressure 130/83 H Blood Pressure Mean 98 Pulse Ox 94 Oxygen Delivery Method Nasal Cannula Oxygen Flow Rate (L/min) 2 05/13/25 17:37 Temperature Temperature Source Pulse Rate 67 Respiratory Rate 16 Respiratory Pattern Blood Pressure 142/77 H Blood Pressure Mean 98 Pulse Ox 94 Oxygen Delivery Method Room Air Oxygen Flow Rate (L/min) Positive well nourished and well developed Constitutional Narrative: Well-appearing General Appearance ED: well developed and NAD HEENT Reports moist mucous membranes normocephalic and atraumatic Eyes PERRL and EOMs intact bilaterally Neck full ROM and supple Chest Wall inspection of chest normal and palpation of chest normal Chest Narrative: No regular chest wall tenderness or splinting with deep inspiration. Resp normal respiratory effort and clear to auscultation bilaterally Resp Narrative: Very diminished breath sounds throughout, but symmetrically with trachea midline. No respiratory distress. Converses in full sentences. Cardio regular rate and regular rhythm Rate: other Other Details: Very faint heart sounds difficult to assess for murmur GI non-tender and non-distended Auscultation: normoactive bowel sounds Palpation: soft Back/Spine no CVA tenderness Back/Spine Narrative: No midline tenderness or limited range of motion. General Back: other FROM Extremity normal to inspection General Extremety ED: Negative for edema, pulses abnormal or tenderness General Extremity: Negative for edema or pulses abnormal Neuro oriented x3, CN's II-XII intact bilaterally and no sensory deficits noted Sensorium / Orientation: awake and alert Motor Exam: strength 5/5 throughout Psych mental status grossly normal Skin no rashes or lesions noted and no wounds MDM MDM MDM Narrative Medical decision making narrative: Patient had a troponin of 27 earlier today, I repeated that it is the same for a delta of 0 and his EKG is normal. CT angiography were performed given the abnormal D-dimer from earlier today even when corrected for his age, I reviewed the images and report which I agree with it is essentially negative for everything except for his chronic known emphysema. No PE, no acute consolidation, no pulmonary edema noted. Patient was given a duo nebulizer treatment in the meantime, he walked to and from the bathroom and noticed that his breathing was improved. He is on oxygen at home, is not hypoxic, I think reasonable to treat him with a 5-day course of prednisone for possible COPD exacerbation, he has an albuterol inhaler at home to use as a rescue, but agrees that he has not used it, he is encouraged to use it as needed, and follow-up as needed. History & Record Review Additional record(s) reviewed:: Prior labs (D-dimer slightly elevated even when corrected for age; slightly elevated troponin; other labs unremarkable including proBNP) and Other (Prior x-rays including chest, left knee, left foot negative for any acute chronic changes noted with regards to COPD) Lab Data Attestation: I reviewed the patient's lab results. Labs: Laboratory Results - last 24 hr 05/13/25 15:57 Troponin T High Sens 27 H Radiography Diagnostic Testing: Clinical Impression(s) from Imaging Studies Chest CTA 05/13/25 16:12 IMPRESSION: No evidence of pulmonary embolism or acute chest findings. Pulmonary emphysema. Reading Location: [facility] Rhythm Strip Rhythm Strip: Sinus Rhythm Rate: 75 Ectopy: None EKG Initial EKG: Attestation: I personally reviewed and interpreted this EKG as follows: Interpretation: Sinus Rhythm and No Acute Injury Pattern Comments: Nml axis & intervals; nml EKG Discharge Plan Triage Chief Complaint: Abn Labs ED Provider: Giorgio Biggs Dx/Rx/DC Orders Clinical Impression: COPD with acute exacerbation, Contusion of left knee and lower leg, Fall from s lip, trip, or stumble Instructions: ED COPD Flare Prescriptions: New prednisone 20 mg tablet 40 mg PO DAILY 5 Days Qty: 10 0RF No Action phenobarbital 16.2 mg tablet 64.8 mg PO QHS 60 Days Qty: 240 umeclidinium-vilanterol 62.5-25 mcg/actuation blister with device 1 inh INHALATION Q24H atorvastatin 80 mg tablet 80 mg PO QHS phenytoin sodium extended 100 mg capsule 300 mg PO QODAY Rx Instructions: alternates with 200mg aspirin [Adult Low Dose Aspirin] 81 mg tablet,delayed release (DR/EC) 81 mg PO QHS phenytoin sodium extended 100 mg capsule 200 mg PO QODAY Rx Instructions: alternates with 300mg cholecalciferol (vitamin D3) [D3-2000] 50 mcg (2,000 unit) capsule 6,000 unit PO DAILY Primary Care Provider: Jessica Simental Referrals: Jessica Simental, DO [Primary Care Provider] - 1 Week if not improving Print Language: Kyrgyz Disposition Disposition: Home, Self Care
[2025-05-13] MEDS: 0.9% Normal Saline (500mL Bag) 500 ML 999 ML IV (16:47)
[2025-05-13 17:05] VITALS: PULSE 68; RESP 18
[2025-05-13 17:21] LABS: Troponin T High Sensitivity 27 ng/L (<=22)
[2025-05-13 17:37] VITALS: BP 142/77; PULSE 67; RESP 16; O2SAT 94
[2025-05-13 19:00] VITALS: BP 138/75; PULSE 67; RESP 18; TEMP 36.6; O2SAT 99
== END 2025-05-13 19:22 | disposition home or self-care (01) ==
PROVIDERS: Emergency Provider Emergency Medicine; PCP Internal Medicine; Visit Provider Emergency Medicine
DX: J44.1 Chronic obstructive pulmonary disease with (acute) exacerbation (principal); I25.10 Atherosclerotic heart disease of native coronary artery without angina pectoris; Z87.891 Personal history of nicotine dependence; Z79.82 Long term (current) use of aspirin; R06.09 Other forms of dyspnea; S80.02XA Contusion of left knee, initial encounter; W01.0XXA Fall on same level from slipping, tripping and stumbling without subsequent striking against object, initial encounter; S80.12XA Contusion of left lower leg, initial encounter; G47.33 Obstructive sleep apnea (adult) (pediatric); I73.9 Peripheral vascular disease, unspecified
CPT/HCPCS: 71275; 84484; 93005; 94640; 96360; 96361; 99283; Q9967; A4216

== ENCOUNTER → 2025-05-13 | Outpatient (CLI) | payer MEDICARE, OTHER, SELFPAY ==
[2025-05-13 12:05] VITALS: BMI 26.3
[2025-05-13 13:20] LABS: Hematocrit 36.1 % (40-54); Hemoglobin 11.6 g/dL (13.0-16.5); Immature Granulocytes Count 0.020 X10^3/uL (0.0-0.0); Mean Corp Hgb Conc 32.1 g/dL (32-36); Mean Corpuscular Volume 94.0 fL (80-94); Mean Platelet Vol. 10.4 fl (6.2-12.0); NRBC Flagged by Analyzer 0 % (0-5); Platelet Count 210 K/mm3 (150-450); RBC Distribution Width CV 13.4 % (11.6-14.6); RBC Distribution Width SD 46.2 fl (35.1-43.9); Red Blood Count 3.84 M/mm3 (4.6-6.2); White Blood Count 7.0 K/mm3 (4.4-11.0)
[2025-05-13 13:28] LABS: Prothrombin Time (Protime)PT. 13.9 SECONDS (11.7-14.9)
[2025-05-13 13:29] LABS: Partial Thromboplast Time 37.1 Seconds (24.1-36.2)
[2025-05-13 13:48] LABS: D-Dimer Quantitative (DVT/PE) 0.88 FEU/ug/m (0.27-0.49)
[2025-05-13 13:58] LABS: AST(SGOT) 23 U/L (<=37); Alanine Aminotransfer ALT/SGPT 19 U/L (<=46); Albumin, Serum 4.1 g/dL (3.4-4.8); Alkaline Phosphatase 88 U/L (40-129); Anion Gap 13 (5-15); BUN 21 mg/dL (4-19); BUN/Creat Ratio 15.6 RATIO (10-20); Calcium,Total 9.4 mg/dL (7.6-11.0); Carbon Dioxide 25.1 mmol/L (21.0-32.0); Chloride 101 mmol/L (98-108); Globulin 3.5 g/dL (2.2-4.2); Glucose 129 mg/dL (70-99); Potassium 4.1 mmol/L (3.3-5.1); Pro- Brain NATRIURETIC PEPTIDE 405 pg/mL (<=1800); Troponin T High Sensitivity 27 ng/L (<=22)
== END | disposition home or self-care (01) ==
PROVIDERS: PCP Internal Medicine; Referring Provider Internal Medicine; Visit Provider Internal Medicine
DX: R09.02 Hypoxemia (principal); G40.909 Epilepsy, unspecified, not intractable, without status epilepticus; R04.0 Epistaxis; R42 Dizziness and giddiness
CPT/HCPCS: 80053; 80184; 80185; 83880; 84443; 84484; 85025; 85379; 85610; 85730

== ENCOUNTER → 2025-05-16 | Outpatient (CLI) | payer MEDICARE, OTHER, SELFPAY ==
[2025-05-15 10:48] VITALS: BMI 26.3
--- NOTE | 2025-05-16 08:54 | EKG12_ITS ---
Test Reason : PRE OP Blood Pressure : */* mmHG Vent. Rate : 62 BPM Atrial Rate : 62 BPM P-R Int : 176 ms QRS Dur : 80 ms QT Int : 402 ms P-R-T Axes : 71 75 76 degrees QTcB Int : 408 ms Sinus rhythm with Premature atrial complexes Otherwise normal ECG Confirmed by SANDRO GORDILLO, JOSE ([id number]), editor continuity and script RAMON MITCHELL ([id number]) on 05/17/2025 10:42:21 AM Referred By: Jessica Simental Confirmed By: JOSE JO MD
== END | disposition home or self-care (01) ==
LOC: PSN 08:53
PROVIDERS: PCP Internal Medicine; Referring Provider Internal Medicine; Visit Provider Internal Medicine
DX: R42 Dizziness and giddiness (principal)
CPT/HCPCS: 93005

== ENCOUNTER → 2025-07-10 | Outpatient (CLI) | payer MEDICARE, OTHER, SELFPAY ==
[2025-05-15 10:48] VITALS: BMI 26.3
--- NOTE | 2025-07-10 09:25 | NM_ITS ---
PROCEDURE: BONE SCAN WHOLE BODY 07/10/2025 REASON FOR EXAM: BONE SCAN LOWER LEFT LEG - ABNORMAL XRAY ON 05/15/25 OF L LEG TECHNIQUE: Procedure Code: NMBO Modality: NM Procedure: BONE SCAN WHOLE BODY Whole-body bone scan with anterior and posterior views. Imaging at 3.5 hours. RADIOPHARMACEUTICAL: 28.4 mCi Technetium-99m MDP IV COMPARISON: Prior radiographs dated May 15, 2025. FINDINGS: Bones: Focal increased uptake is seen along the lateral aspect of the proximal fibula corresponding to the radiographic abnormality. Correlation with MRI recommended for further evaluation. No other abnormality is seen. Kidneys: Unremarkable. NM/Bone Scan Whole Body IMPRESSION: Focal increased radiopharmaceutical uptake along the lateral aspect of the prox imal fibula corresponding to the radiographic findings. Further correlation with MRI recommended. Reading Location: [place] [id number]
== END | disposition home or self-care (01) ==
LOC: NM 09:24
PROVIDERS: PCP Internal Medicine; Referring Provider Internal Medicine; Visit Provider Internal Medicine
DX: R93.7 Abnormal findings on diagnostic imaging of other parts of musculoskeletal system (principal)
CPT/HCPCS: 78306; A9503

== ENCOUNTER → 2025-07-17 | Outpatient (CLI) | payer MEDICARE, OTHER, SELFPAY ==
[2025-05-15 10:48] VITALS: BMI 26.3
--- NOTE | 2025-07-17 12:33 | MRI_ITS ---
PROCEDURE: LOWER EXT NO JOINT W/WO CONT 07/17/2025 REASON FOR EXAM: ABNORMAL RADIONUCLIDE BONE SCAN TECHNIQUE: Procedure Code: [id number] Modality: MR Procedure: LOWER EXT NO JOINT W/WO CONT T1, T2, postcontrast T1 fat-sat, images of the left tibia/fibula CONTRAST: 18 cc Clariscan COMPARISON: Bone scan dated July 10, 2025 FINDINGS: There is heterogeneous low T1 signal in the subarticular region of the lateral tibial plateau measuring a proximally 3.7 x 5.0 by 3.3 cm, with increased T2, heterogeneous postcontrast enhancement. There linear low T1 signal components extending to the articular surface, consistent with microtrabecular fracture. Adjacent muscular structures appear intact. There is no definite soft tissue mass component. There is no visible adenopathy. MRI/Lower Ext No Joint W/WO Cont IMPRESSION: There is heterogeneous low T1 signal in the subarticular region of the lateral tibial plateau measuring a proximally 3.7 x 5.0 by 3.3 cm, with increased T2, heterogeneous postcontrast enhancement. The differe ntial includes posttraumatic, and neoplastic processes. This area corresponds with the area of abnormal increased radiotrac er activity on the recent bone scan. Reading Location: [facility]
== END | disposition home or self-care (01) ==
LOC: MRI 12:28
PROVIDERS: PCP Internal Medicine; Referring Provider Internal Medicine; Visit Provider Internal Medicine
DX: R94.8 Abnormal results of function studies of other organs and systems (principal)
CPT/HCPCS: 73720; A9575; A4216

== ENCOUNTER → 2025-07-29 | Outpatient (CLI) | payer MEDICARE, OTHER, SELFPAY ==
[2025-05-15 10:48] VITALS: BMI 26.3
[2025-07-29 10:27] LABS: Hematocrit 36.1 % (40-54); Hemoglobin 11.6 g/dL (13.0-16.5); Immature Granulocytes Count 0.010 X10^3/uL (0.0-0.0); Mean Corp Hgb Conc 32.1 g/dL (32-36); Mean Corpuscular Volume 93.3 fL (80-94); Mean Platelet Vol. 10.2 fl (6.2-12.0); NRBC Flagged by Analyzer 0 % (0-5); Platelet Count 235 K/mm3 (150-450); RBC Distribution Width CV 13.0 % (11.6-14.6); RBC Distribution Width SD 44.0 fl (35.1-43.9); Red Blood Count 3.87 M/mm3 (4.6-6.2); White Blood Count 4.5 K/mm3 (4.4-11.0)
[2025-07-29 10:59] LABS: AST(SGOT) 22 U/L (<=37); Alanine Aminotransfer ALT/SGPT 17 U/L (<=46); Albumin, Serum 4.1 g/dL (3.4-4.8); Alkaline Phosphatase 82 U/L (40-129); Anion Gap 10 (5-15); BUN 15 mg/dL (4-19); BUN/Creat Ratio 14.4 RATIO (10-20); Calcium,Total 9.5 mg/dL (7.6-11.0); Carbon Dioxide 24.6 mmol/L (21.0-32.0); Chloride 103 mmol/L (98-108); Cholesterol 139 mg/dL (<=200); Globulin 3.1 g/dL (2.2-4.2); Glucose 91 mg/dL (70-99); Low Density Lipoprotein Calc. 64 mg/dL; Potassium 4.4 mmol/L (3.3-5.1); Triglycerides 64 mg/dL; Very Low Density Lipoprotein 13 mg/dL (5-40); Vitamin D,25 Hydroxy 68.1 ng/mL (30-100); cholesterol:hdl ratio screen 2.25
[2025-07-29 14:15] LABS: Creatinine, Urine (random) 73.20 mg/dL (39.00-259.00); Microalbumin,Random Urine < 12.0 mg/L (<20 mg/L)
[2025-07-31 14:08] LABS: PROEL- A/G Ratio 1.3 (0.7-1.7); PROEL- Albumin 3.9 g/dL (2.9-4.4); PROEL- Alpha-1 Globulin 0.3 g/dL (0.0-0.4); PROEL- Alpha-2 Globulin 0.7 g/dL (0.4-1.0); PROEL- Beta Globulin 0.9 g/dL (0.7-1.3); PROEL- Gamma Globulin 1.1 g/dL (0.4-1.8); PROEL- Globulin, Total 3.0 g/dL (2.2-3.9); PROEL- TOTAL PROTEIN 6.9 g/dL (6.0-8.5); PROEL-M-Spike Not Observed g/dL (Not Observed); PROELU- Albumin, Urine 23.0 % (.); PROELU- Alpha-1-Globulin,Ur 3.9 % (.); PROELU- Alpha-2-Globulin,Ur 12.4 % (.); PROELU- Beta Globulin, Ur 38.2 % (.); PROELU- Gamma Globulin, Ur 22.4 % (.); PSA, Total 0.8 ng/mL (0.0-4.0); Total Protein, Ur 10.6 mg/dL (Not Estab.)
== END | disposition home or self-care (01) ==
LOC: CIMLAB 09:09
PROVIDERS: PCP Internal Medicine; Referring Provider Internal Medicine; Visit Provider Internal Medicine
DX: R73.09 Other abnormal glucose (principal); G40.909 Epilepsy, unspecified, not intractable, without status epilepticus; D63.8 Anemia in other chronic diseases classified elsewhere; E78.5 Hyperlipidemia, unspecified; E55.9 Vitamin D deficiency, unspecified; Z12.5 Encounter for screening for malignant neoplasm of prostate; R94.8 Abnormal results of function studies of other organs and systems
CPT/HCPCS: 36415; 80053; 80061; 80184; 80185; 82043; 82306; 82570; 83036; 84153; 84165; 84166; 85025